=== PATIENT | female | born 1935 | race Caucasian/White ===

== ENCOUNTER 2016-10-24 15:13 | Inpatient (IN) | payer MEDICARE, MEDICAID ==
[2016-10-24 15:41] LABS: HEMOGLOBIN 9.9 gm/dL (12-16); MEAN CELL VOLUME 85.3 fl (81-100); MEAN CORPUSCULAR HEMOGLOBIN 28.2 pg (27.0-31.0); MEAN CORPUSCULAR HGB CONC 33.1 pg (28.0-36.0); MEAN PLATELET VOLUME 8.3 fl; RED CELL DISTRIBUTION WIDTH 14.5 % (11.5-20.0); WHITE BLOOD COUNT 11.9 Th/cmm (4.8-10.8)
[2016-10-24 15:51] LABS: HEMATOCRIT 29.9 % (41.0-60); PLATELET COUNT 341 Th/cmm (150-400)
[2016-10-24 15:56] LABS: INR 0.98 (0.5-1.4); PROTHROMBIN TIME (TEST) 10.2 SECONDS (9.5-11.5)
[2016-10-24 15:59] LABS: CHOLESTEROL 131 mg/dL (<200); TRIGLYCERIDES 183 mg/dL (<150)
[2016-10-24 16:01] LABS: ALB/GLOB RATIO 0.8 (1.0-1.8); ALKALINE PHOSPHATASE 124 U/L (34-104); BILIRUBIN,TOTAL 0.3 mg/dL (0.3-1.0); BUN - UREA NITROGEN 27 mg/dL (7-25); BUN/CREATININE RATIO 13.5; CALCIUM SERUM 10.7 mg/dL (8.6-10.3); CARBON DIOXIDE 23.1 mEq/L (21.0-31.0); CHLORIDE 102 mEq/L (98-107); GLUCOSE 312 mg/dL (70-105); POTASSIUM SERUM 5.1 mEq/L (3.5-5.1); SGOT 14 U/L (13-39); SGPT/ALT 17 U/L (7-52); SODIUM SERUM 128 mEq/L (136-145)
[2016-10-24] MEDS ORDERED: Sodium Chloride 0.45% 1,000 ML IV ONE (16:08)
--- NOTE | 2016-10-24 16:10 | ED Physician Chart ---
ED Chief Complaint/HPI - Patient Information Date Seen:: 10/24/16 Time Seen:: 16:05 Chief Complaint:: DECUBITI ULCERS History of Present Illness:: THIS IS A CHRONICALLY ILL 81 YO FEMALE WHO WAS SENT HERE FROM A SNF TO MANAGEMENT AND TREATMENT MULTIPLE BED SORES. SHE HAS DIABETES AND HYPERTENSION. Allergies:: Allergies Allergy/AdvReac Type Severity Reaction Status Date / Time No Known Allergies Allergy Verified 06/30/16 18:00 Vitals:: Vital Signs - 8 hr 10/24/16 15:42 Temp 98.5 F HR 97 RR 16 BP 160/77 O2 Sat % 98 Historian:: Medical Records Review:: Nurse's Note Reviewed, Old Chart Reviewed, Transfer documents Reviewed ED Review of Systems - Review of Systems General/Constitutional: No fever, No chills, No weight loss, No weakness, No diaphoresis, No edema, No loss of appetite Skin: No rash, No bruising, Other (BUTTOCK OPEN GRADE 3 DECUBES) Head: No headache, No light-headedness Eyes: No loss of vision, No pain, No diplopia ENT: No earache, No nasal drainage, No sore throat, No tinnitus Neck: No neck pain, No swelling, No thyromegaly, No stiffness, No mass noted Cardio Vascular: No chest pain, No palpitations, No PND, No orthopnea, No edema Pulmonary: No SOB, No cough, No sputum, No wheezing GI: No nausea, No vomiting, No diarrhea, No pain, No melena, No hematochezia, No constipation, No hematemesis G/U: No dysuria, No frequency, No hematuria Musculoskeletal: No bone or joint pain, No back pain, No muscle pain Endocrine: No polyuria, No polydipsia Psychiatric: No prior psych history, No depression, No anxiety, No suicidal ideation Hematopoietic: No bruising, No lymphadenopathy Allergic/Immuno: No urticaria, No angioedema Neurological: No syncope, No focal symptoms, No weakness, No paresthesia, No headache, No seizure, No dizziness, No confusion, No vertigo ED Past Medical History - Past Medical History Obtainable: Yes Past Medical History: HTN, DM, CVA/TIA, Arthritis, Dementia Family History: Diabetes Melitus, HTN Social History: Non Smoker, No Alcohol, No Drug Use, , Care Facility Surgical History: None Psychiatricy History: Dementia Family Medical History - Family Member Mother History Unknown: Yes Hx Family Diabetes: Yes ED Physical Exam - Physical Examination General/Constitutional: Awake, Well-developed, well-nourished, Alert, No distress, GCS 15, Non-toxic appearing, Ambulatory Head: Atraumatic Eyes: Lids, conjuctiva normal, PERRL, EOMI Skin: Nl inspection, No rash, No skin lesions, No ecchymosis, Well hydrated, No lymphadenopathy ENMT: External ears, nose nl, Nasal exam nl, Lips, teeth, gums nl Neck: Nontender, Full ROM w/o pain, No JVD, No nuchal rigidity, No bruit, No mass, No stridor Respiratory: Nl effort/Exclusion, Clear to Auscultation, No Wheeze/Rhonchi/Rales Cardio Vascular: RRR, No murmur, gallop, rubs, NL S1 S2 GI: No tenderness/rebounding/guarding, No organomegaly, No hernia, Normal BS's, Nondistended, No mass/bruits, No McBurney tenderness Other GI comments:: ULCERS OF THE BUTTOCKS. : No CVA tenderness Extremities: No tenderness or effusion, Full ROM, normal strength in all extremities, No edema, Normal digits & nails Other Extremities comments:: ALL FOUR EXTREMITIES ARE THIN WITH SEVERE MUSCLE WASTING. Neuro/Psych: Alert/oriented, DTR's symmetric, Normal sensory exam, Normal motor strength, Judgement/insight normal, Mood normal, Normal gait, No focal deficits Other Neuro/Psych comments:: PARTIAL PARALYSIS OF THE UPPER EXTREMITIES. Misc: normal gait, Normal back, No paraspinal tenderness ED Labs/Radiology/EKG Results - Lab Results Results: Laboratory Tests 10/24/16 10/24/16 10/24/16 15:30 15:30 15:30 WBC 11.9 H RBC 3.50 L Hgb 9.9 L Hct 29.9 L D MCV 85.3 MCH 28.2 MCHC Differential 33.1 RDW 14.5 Plt Count 341 D MPV 8.3 PT 10.2 INR 0.98 PTT (Actin FS) 25.6 L Sodium Potassium Chloride Carbon Dioxide Anion Gap BUN Creatinine Est GFR ( Amer) Est GFR (Non-Af Amer) BUN/Creatinine Ratio Glucose Calcium Total Bilirubin AST ALT Alkaline Phosphatase Troponin I Total Protein Albumin Globulin Albumin/Globulin Ratio Triglycerides 183 H Cholesterol 131 LDL Cholesterol Direct 85 HDL Cholesterol 27 10/24/16 10/24/16 15:30 15:30 WBC RBC Hgb Hct MCV MCH MCHC Differential RDW Plt Count MPV PT INR PTT (Actin FS) Sodium 128 L Potassium 5.1 Chloride 102 Carbon Dioxide 23.1 Anion Gap 8.0 BUN 27 H Creatinine 2.0 H Est GFR ( Amer) TNP Est GFR (Non-Af Amer) TNP BUN/Creatinine Ratio 13.5 Glucose 312 H Calcium 10.7 H Total Bilirubin 0.3 AST 14 ALT 17 Alkaline Phosphatase 124 H Troponin I 0.03 Total Protein 6.6 Albumin 2.9 L Globulin 3.7 Albumin/Globulin Ratio 0.8 L Triglycerides Cholesterol LDL Cholesterol Direct HDL Cholesterol - Radiology Results Results: CHEST - XRAY = NAD - EKG Interpretations EKG Time:: 15:42 Rate & Rhythm: RATE = 57, BRADYCARDIA [place]: RIGHT ED Assessment - Assessment General Assessment: DECUBITI ULCERS ED Septic Shock - . Is Septic Shock (SBP<90, OR Lactate>4 mmol\L) present?: No - <6hrs of presentation: Vital Signs: Vital Signs - 8 hr 10/24/16 15:42 Temp 98.5 F HR 97 RR 16 BP 160/77 O2 Sat % 98 ED Reassessment (Disposition) - Diagnosis Diagnosis:: GRADE 3 DECUBTI ANEMIA DEHYDRATION - Patient Disposition Discharge/Transfer:: Acute Care w/in this hosp Admitting Medical Physician:: Damian La Condition at Disposition:: Stable
[2016-10-24 16:17] LABS: BAND NEUTROPHILE 1 % (0-10); BASOPHIL 1 % (0-3); NEUTROPHILS 83 % (40-80); PLATELET ESTIMATE ADEQUATE (NORMAL); TOTAL CELLS COUNTED 100
[2016-10-24] MEDS: Sodium Chloride 0.9% 1,000 ML IV SCH (21:16)
[2016-10-24] MEDS ORDERED: Fleet Enema 135 mL RC PRN (22:10)
[2016-10-25] MEDS ORDERED: Piperacillin Sodium/Tazobact 3.375 gm Vial IV ONE ×2 (00:19→05:26)
--- NOTE | 2016-10-25 08:10 | Diagnostic Imaging Report ---
CHEST X-RAY: AP view INDICATION: Cough COMPARISON: 06/30/2016 FINDINGS: There is no focal consolidation or pleural effusions. Mild chronic lung changes are seen. Mild cardiomegaly is noted with tortuous aorta and atherosclerosis. Patient is rotated. Degenerative changes of the spine are noted. IMPRESSION: Mild chronic lung changes with no focal consolidation identified. Mild cardiomegaly with tortuous aorta and atherosclerosis.
--- NOTE | 2016-10-25 08:53 | History and Physical ---
History of Present Illness - HPI Chief Complaint: Cellulitis and Decubitus ulcer stage 3 HPI: This a patient that I follow in SNF and I noticed an decubit ulcer stage 3 and cellulites reason why patient was transferred to hospital for debridament. 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 GI: Report: No Pertinent Hx Psych: Report: Schizophrenia Musculoskeletal: Report: Osteoarthritis, Weakness Infectious Disease: Report: Other (Cellulitis) Renal/: Report: Acute Renal Failure Endocrine: Report: Diabetes, Other (Hyponatremia) Dermatology: Report: Cellulitis, Other (Decubit ulcer stage 3) - Past Surgical History Past Surgical History: No pertinent Hx Family Medical History - Family Member Mother History Unknown: Yes Ethnicity: Living Status: Unknown Hx Family Cancer: No Hx Family Coronary Artery Disease: No Hx Family Congestive Heart Failure: No Hx Family Hypertension: No Hx Family Stroke: No Hx Family Diabetes: Yes Hx Family Seizures: No Hx Family Dementia: No Hx Family AIDS: No Hx Family HIV: No Hx Family COPD: No Hx Family Hepatitis: No Hx Family Psychiatric Problems: No Hx Family Tuberculosis: No Social History Smoke: No Alcohol: None Drugs: None Lives: Jail Domestic Violence: Negative - Medications Home Medications: Home Medication Medication Instructions Recorded Type Acetaminophen [Tylenol] 650 mg PO Q6H PRN tab 07/05/16 Rx Bisacodyl [Dulcolax 5 Mg Ec Tab] 10 mg PO BID ect 07/05/16 Rx Captopril [Capoten 25 mg Tab] 25 mg PO BID tab 07/05/16 Rx Sodium Chloride Tab [NaCL Tab] 1 gm PO BID tab 07/05/16 Rx cloNIDine HCl [Catapres] 0.1 mg PO Q8HR PRN tab 07/05/16 Rx Alginate Dressing [Algisite M] 1 each TP DAILY 10/24/16 History Ascorbate Calcium [Vitamin C] 500 mg PO DAILY 10/24/16 History Aspirin [Aspirin Chewable] 81 mg PO DAILY 10/24/16 History Insulin Aspart Sliding Scale 0 units SUBQ ACHS 10/24/16 History [NovoLOG INSULIN SLIDING SCALE] Insulin Glargine, Recombinan 24 units SUBQ HS 10/24/16 History [Lantus] Lorazepam [Ativan] 1 mg PO HS PRN 10/24/16 History Memory Builder 3 tab PO BID 10/24/16 History Multivitamin with Minerals 1 tab PO DAILY 10/24/16 History [Multivitamins with Minerals] Sennosides A and B [Senna] 8.6 mg PO DAILY 10/24/16 History traMADol HCl [Ultram*] 50 mg PO X1 10/24/16 History - Allergies Allergies/Adverse Reactions: Allergies Allergy/AdvReac Type Severity Reaction Status Date / Time No Known Allergies Allergy Verified 06/30/16 18:00 Review of Systems - Review of Systems Constitutional: Report: No Significant Eyes: Report: No Significant Respiratory: Report: No Significant Cardiovascular: Report: No Significant Gastrointestinal: Report: No Significant Genitourinary: Report: No Significant Musculoskeletal: Report: Neck Pain Skin: Report: Other (Cellulitis and decubit ulcer stage 3) Neurological: Report: Weakness, Confusion, Other (Non Verbal) Physical Exam - Physical Exam HEENT: Report: Ears Nose Throat within normal limits Neck: Report: Within normal limits Cardiovascular Systems: Report: Regular, Rate and Rhythm Respiratory: Report: Breath Sounds are within normal limits Abdomen: Report: Non-tender to palpation Back: Report: Inspection of back is within normal limits. Extremities: Report: Non-tender to palpation., Extremities are contracted (Non ambulatory) Skin: Report: A wound was noted (Cellulitis and sacral decubit ulcer) Neuro/Psych: Report: Depressed affect, Weakness or sensory loss noted. - Lab Results All Lab Results last 24 hours: Laboratory Last Values WBC 11.9 Th/cmm (4.8-10.8) H 10/24/16 15:30 RBC 3.50 Mil/cmm (3.80-5.20) L 10/24/16 15:30 Hgb 9.9 gm/dL (12-16) L 10/24/16 15:30 Hct 29.9 % (41.0-60) L D 10/24/16 15:30 MCV 85.3 fl (81-100) 10/24/16 15:30 MCH 28.2 pg (27.0-31.0) 10/24/16 15:30 MCHC Differential 33.1 pg (28.0-36.0) 10/24/16 15:30 RDW 14.5 % (11.5-20.0) 10/24/16 15:30 Plt Count 341 Th/cmm (150-400) D 10/24/16 15:30 MPV 8.3 fl 10/24/16 15:30 Band Neutrophils % 1 % (0-10) 10/24/16 15:30 Neutrophils (Manual) 83 % (40-80) H 10/24/16 15:30 Lymphocytes 9 % (20-50) L 10/24/16 15:30 Monocytes 6 % (2-10) 10/24/16 15:30 Basophils 1 % (0-3) 10/24/16 15:30 Platelet Estimate ADEQUATE (NORMAL) 10/24/16 15:30 PT 10.2 SECONDS (9.5-11.5) 10/24/16 15:30 INR 0.98 (0.5-1.4) 10/24/16 15:30 PTT (Actin FS) 25.6 SECONDS (26.0-38.0) L 10/24/16 15:30 Sodium 128 mEq/L (136-145) L 10/24/16 15:30 Potassium 5.1 mEq/L (3.5-5.1) 10/24/16 15:30 Chloride 102 mEq/L (98-107) 10/24/16 15:30 Carbon Dioxide 23.1 mEq/L (21.0-31.0) 10/24/16 15:30 Anion Gap 8.0 (7.0-16.0) 10/24/16 15:30 BUN 27 mg/dL (7-25) H 10/24/16 15:30 Creatinine 2.0 mg/dL (0.6-1.2) H 10/24/16 15:30 Est GFR ( Amer) TNP 10/24/16 15:30 Est GFR (Non-Af Amer) TNP 10/24/16 15:30 BUN/Creatinine Ratio 13.5 10/24/16 15:30 Glucose 312 mg/dL (70-105) H 10/24/16 15:30 POC Glucose 325 MG/DL (70 - 105) H 10/24/16 20:33 Hemoglobin A1c % 8.8 % (4.0-6.0) H 10/24/16 15:30 Calcium 10.7 mg/dL (8.6-10.3) H 10/24/16 15:30 Total Bilirubin 0.3 mg/dL (0.3-1.0) 10/24/16 15:30 AST 14 U/L (13-39) 10/24/16 15:30 ALT 17 U/L (7-52) 10/24/16 15:30 Alkaline Phosphatase 124 U/L (34-104) H 10/24/16 15:30 Troponin I 0.03 ng/mL (0.01-0.05) 10/24/16 15:30 Total Protein 6.6 gm/dL (6.0-8.3) 10/24/16 15:30 Albumin 2.9 gm/dL (3.7-5.3) L 10/24/16 15:30 Globulin 3.7 gm/dL 10/24/16 15:30 Albumin/Globulin Ratio 0.8 (1.0-1.8) L 10/24/16 15:30 Triglycerides 183 mg/dL (<150) H 10/24/16 15:30 Cholesterol 131 mg/dL (<200) 10/24/16 15:30 LDL Cholesterol Direct 85 mg/dL (75-193) 10/24/16 15:30 HDL Cholesterol 27 mg/dL (23-92) 10/24/16 15:30 TSH 2.34 uIU/ml (0.34-5.60) 10/24/16 15:30 RPR NONREACTIVE (NONREACTIVE) 10/24/16 15:30 Laboratory Results - last 24 hr 10/24/16 20:33 POC Glucose 325 H - Assessment Assessment: Current Active Problems Problem Status Onset SACRAL AND BILATERAL BUTTOCK SKIN ULCERS Acute Patient is awake, alert, calm, confused, not oriented. Dx: Cellulitis and sacral decubit ulcer stage 3, AKF, Hyponatremia, DM, HTN, Dementia, S/P CVA, bed bound. - Plan Plan: On IV NS, Sozyn, continue with SNF meds, Today debridament will be done, Consult with Nephro request. Will continue to monitor.
[2016-10-25] MEDS ORDERED: Midazolam 1mg/ml 2 ml vial IV ONE (09:56)
--- NOTE | 2016-10-25 09:59 | Consultation ---
DATE OF CONSULTATION: 10/25/2016 REFERRING PHYSICIAN: Dr. La. REASON FOR CONSULTATION: Decubitus ulcer sacrum. Thank you for referring this patient to me. HISTORY OF PRESENT ILLNESS: This is an 81-year-old female, who comes from the detention because of increasing necrosis of the sacral area. The patient has been bed bound for a while. The patient's is at bedside and information is that this change has been taking place for at least 2 weeks. PAST MEDICAL HISTORY: Includes acute renal failure initiated on hemodialysis, diabetes mellitus, hypertension, dementia, status post CVA, and bed bound status. LABORATORY STUDIES: On this admission, the WBC was slightly elevated to 11,900, hemoglobin of 9.9, neutrophils is 83%. PT, PTT are within normal limits. Potassium of 5.1, BUN of 27, creatinine of 2.0. Hemoglobin A1c is 8.8. The chest x-ray shows chronic lung change with mild cardiomegaly. PHYSICAL EXAMINATION: The patient is awake, unable to give any information. She is obese. There is a stage 3 sacral decubitus ulcer at least and will need debridement and possible wound VAC application. The understands risks and complications of the procedure and need for the treatment to minimize risk of septicemia. The patient is incontinent and if this is a risk factor, might recommend diverting colostomy as well. [facility]# [id number]
[2016-10-25] MEDS: Aspirin 81mg Chewable Tab PO SCH (10:02)
[2016-10-25] MEDS: Multivitamin w/ Minerals Tab PO SCH (10:03)
--- NOTE | 2016-10-25 10:49 | Operative Report ---
DATE OF SURGERY: 10/25/2016 PREOPERATIVE DIAGNOSES: 1. Stage 3 sacral decubitus ulcer. 2. Diabetes mellitus. 3. Status post cerebrovascular accident. POSTOPERATIVE DIAGNOSES: 1. Stage 3 sacral decubitus ulcer. 2. Diabetes mellitus. 3. Status post cerebrovascular accident. OPERATION: 1. Excisional debridement. 2. Application of wound VAC. SIZE OF ULCER: 6 x 5 cm deep to the muscle. ESTIMATED BLOOD LOSS: 1 mL. SURGEON: Amando Naranjo M.D. ANESTHESIA: MAC. ANESTHESIOLOGIST: Susie Fritz M.D. DESCRIPTION OF PROCEDURE: The patient was given IV sedation. She was placed in the right lateral decubitus physician. The ulcer was prepped with Betadine and draped. Excisional debridement was done of the necrotic tissue to the extending to the muscle. Cultures were taken. Following satisfactory hemostasis, the wound VAC was applied. The patient tolerated the procedure well. [facility]# [id number]
[2016-10-25] MEDS: Sodium Chloride 0.9% 1,000 ML IV SCH (11:25)
[2016-10-25] MEDS ORDERED: VTE Chemical Prophylaxis Screen/Admission MC PRN (11:46)
[2016-10-25] MEDS ORDERED: Probiotic Screen MC PRN (14:29)
[2016-10-25] MEDS: Lactobacillus Rhamnosus 10 Billion CFU Capsule PO SCH (15:15)
--- NOTE | 2016-10-26 01:29 | Consultation ---
DATE OF CONSULTATION: 10/25/2016 ATTENDING: Dr. Osmin La. AUTOMOBILE SERVICE ADVISOR: Omid Villa M.D. REASON FOR CONSULTATION: Electrolyte imbalance, worsening kidney function, and for fluid management. HISTORY OF PRESENT ILLNESS: This is an 81-year-old female with past medical history of decubitus ulcers, came in for further evaluation of her worsening ulcers. Three days prior to admission, culture and sensitivity of decubitus gluteal ulcers grew MRSA. She was maintained on Bactrim. A few hours prior to admission, her gluteal ulcers had deteriorated. She was brought to the Emergency Room. Her temperature was 98.5 degrees, with a white count of 11.9. She had a BUN/creatinine of 27/2 and a sodium of 128. There were no episodes of nausea or vomiting, no diarrhea. PAST MEDICAL HISTORY: 1. Type 2 diabetes mellitus. 2. Vascular dementia. 3. Bilateral decubitus gluteal ulcers. 4. Essential hypertension. 5. Status post cerebrovascular accident. 6. Chronic kidney disease. CURRENT MEDICATIONS: She is currently on acetaminophen, ascorbic acid, aspirin, bisacodyl, captopril, Fleet enema, detemir, lorazepam, Tramadol, Zosyn. ALLERGIES: No known drug allergies. SOCIAL AND FAMILY HISTORY: I was not able to obtain directly from the patient because she remains nonverbal. REVIEW OF SYSTEMS: Again, I was not able to decipher directly from the patient. PHYSICAL EXAMINATION: GENERAL: The patient is arousable, weak, remains nonverbal. VITAL SIGNS: Blood pressure is 159/74, pulse 77, temperature 98.9 degrees. SKIN: Poor turgor, warm. No rash, no jaundice appreciated. HEENT: Head normocephalic, atraumatic. Eyes: Extraocular muscles intact. Pupils equal, round, reactive to light and accommodates. Anicteric sclerae. Pale conjunctivae. Nose, midline nasal septum. Mouth: Dry mucosa with adequate dentition. NECK: Supple, no adenopathy, no thyromegaly, no bruits. Trachea palpated in the midline. CHEST AND CVS: S1, S2. No rub, murmur or gallop appreciated. Point of maximal impulse fifth intercostal space, left midclavicular line. No abdominal or femoral bruits appreciated. LUNGS: Equal expansion. No use of accessory muscles. No supraclavicular retractions. Decreased breath sounds. Few rhonchi, but no rales nor wheezes appreciated. BREASTS: Symmetrical without any discharge. ABDOMEN: Flat, soft. Positive for bowel sounds. No bruits, either diastolic or systolic. RECTAL: Deferred. GENITOURINARY: Normal appearing female genitalia. MUSCULOSKELETAL: No effusions present in her joints, but unable to assess her range of motion. EXTREMITIES: No evidence of any edema, cyanosis nor clubbing with palpable femoral, but unable to fully appreciate popliteal and dorsalis pedis pulses. She has bilateral atrophy of lower extremities. NEUROLOGIC: The patient is awake, remains nonverbal. The patient is drowsy, weak, unable to follow my neuro commands, so I was not able to pursue further my neuro exam. LABORATORY DATA: Did reveal sodium 128, potassium 5.1, chloride 102, bicarbonate 23, BUN 27, creatinine is 2, glucose 313, hemoglobin A1c 8.8%, calcium 10.7, albumin 2.9. White count 11.9, hemoglobin 9.9, hematocrit 26.9, platelets . IMPRESSION: 1. 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 The patient has no history of nausea and vomiting, no diarrhea. 2. Chronic kidney disease secondary to diabetic nephropathy with some hypertension, nephrosclerosis. 3. Bilateral Methicillin-resistant Staphylococcus aureus decubitus gluteal ulcers, status post debridement with wound VAC. 4. Severe malnutrition. 5. Type 2 diabetes mellitus with chronic kidney disease. 6. Vascular dementia. 7. Essential hypertension. 8. Status post cerebrovascular accident. PLAN: 1. Gentle hydration. 2. Urinalysis. 3. Urine spot sodium, eosinophils and creatinine. 4. Renal ultrasound. 5. Urine microalbumin to creatinine ratio. 6. Serum osmolality, uric acid, aldosterone, cortisol, and TSH level. [facility]# [id number]
[2016-10-26] MEDS: Sodium Chloride 0.9% 1,000 ML IV SCH (05:21)
[2016-10-26 06:12] LABS: CREATININE RANDOM URINE 28.6 mg/dl (28.0-217.0)
[2016-10-26 06:21] LABS: % BASOPHILS 0.2 % (0.0-2.0); % EOSINOPHILS 2.8 % (0.0-5.0); % LYMPHOCYTES 23.9 % (20.0-50.0); % MONOCYTES 10.2 % (2.0-10.0); % NEUTROPHILS 62.9 % (40.0-80.0); HEMATOCRIT 26.4 % (41.0-60); MEAN CELL VOLUME 83.4 fl (81-100); MEAN CORPUSCULAR HEMOGLOBIN 28.4 pg (27.0-31.0); MEAN PLATELET VOLUME 8.1 fl; NEUTROPHILE ABSOLUTE 4.5 Th/cmm (1.8-8.0); PLATELET COUNT 341 Th/cmm (150-400); RED BLOOD COUNT 3.16 Mil/cmm (3.80-5.20); RED CELL DISTRIBUTION WIDTH 14.7 % (11.5-20.0)
[2016-10-26 06:22] LABS: WHITE BLOOD COUNT 7.4 Th/cmm (4.8-10.8)
[2016-10-26 06:36] LABS: ALB/GLOB RATIO 0.8 (1.0-1.8); ALKALINE PHOSPHATASE 101 U/L (34-104); ANION GAP 9.2 (7.0-16.0); BILIRUBIN,TOTAL 0.3 mg/dL (0.3-1.0); BUN - UREA NITROGEN 26 mg/dL (7-25); BUN/CREATININE RATIO 17.3; CARBON DIOXIDE 23.9 mEq/L (21.0-31.0); CHLORIDE 108 mEq/L (98-107); CREATININE - SERUM 1.5 mg/dL (0.6-1.2); GLUCOSE 85 mg/dL (70-105); MAGNESIUM 2.1 mg/dL (1.9-2.7); PHOSPHOROUS 2.1 mg/dL (2.5-5.0); POTASSIUM SERUM 4.1 mEq/L (3.5-5.1); SGOT 17 U/L (13-39); SGPT/ALT 16 U/L (7-52); SODIUM SERUM 137 mEq/L (136-145); URIC ACID 3.9 mg/dL (2.3-6.6)
--- NOTE | 2016-10-26 08:16 | Diagnostic Imaging Report ---
Renal ultrasound HISTORY: Abnormal renal function test The right kidney is normal in size (9.5 x 4.5 x 5.3 cm). A 2.4 x 1.8 x 2.1 cm sonolucent lesion consistent with a cyst is noted in the upper cortical medullary junction region. No hydronephrosis. The left kidney is normal in size (9.4 x 4.7 x 4.6 cm). Multiple sonolucent lesions consistent with cysts are seen. The largest measures approximately 2.7 cm. No hydronephrosis. Evaluation of the urinary bladder is limited due to lack of distention. IMPRESSION: 1. Findings consistent with bilateral renal cysts 2. No hydronephrosis
--- NOTE | 2016-10-26 08:50 | General Progress Note ---
Subjective - Review of Systems Service Date: 10/26/16 Subjective: Patient confused Objective - Results Result Diagrams: 10/26/16 06:05 10/26/16 06:05 Recent Labs: Laboratory Last Values WBC 7.4 Th/cmm (4.8-10.8) D 10/26/16 06:05 RBC 3.16 Mil/cmm (3.80-5.20) L 10/26/16 06:05 Hgb 9.0 gm/dL (12-16) L 10/26/16 06:05 Hct 26.4 % (41.0-60) L D 10/26/16 06:05 MCV 83.4 fl (81-100) 10/26/16 06:05 MCH 28.4 pg (27.0-31.0) 10/26/16 06:05 MCHC Differential 34.0 pg (28.0-36.0) 10/26/16 06:05 RDW 14.7 % (11.5-20.0) 10/26/16 06:05 Plt Count 341 Th/cmm (150-400) 10/26/16 06:05 MPV 8.1 fl 10/26/16 06:05 Neutrophils % 62.9 % (40.0-80.0) 10/26/16 06:05 Band Neutrophils % 1 % (0-10) 10/24/16 15:30 Lymphocytes % 23.9 % (20.0-50.0) 10/26/16 06:05 Monocytes % 10.2 % (2.0-10.0) H 10/26/16 06:05 Eosinophils % 2.8 % (0.0-5.0) 10/26/16 06:05 Basophils % 0.2 % (0.0-2.0) 10/26/16 06:05 Neutrophils (Manual) 83 % (40-80) H 10/24/16 15:30 Lymphocytes 9 % (20-50) L 10/24/16 15:30 Monocytes 6 % (2-10) 10/24/16 15:30 Basophils 1 % (0-3) 10/24/16 15:30 Platelet Estimate ADEQUATE (NORMAL) 10/24/16 15:30 Eos Smear Source URINE 10/26/16 05:43 Eos Smear Total Cells FEW EOSINOPHILS SEEN (NONE SEEN) 10/26/16 05:43 PT 10.2 SECONDS (9.5-11.5) 10/24/16 15:30 INR 0.98 (0.5-1.4) 10/24/16 15:30 PTT (Actin FS) 25.6 SECONDS (26.0-38.0) L 10/24/16 15:30 Sodium 137 mEq/L (136-145) 10/26/16 06:05 Potassium 4.1 mEq/L (3.5-5.1) 10/26/16 06:05 Chloride 108 mEq/L (98-107) H 10/26/16 06:05 Carbon Dioxide 23.9 mEq/L (21.0-31.0) 10/26/16 06:05 Anion Gap 9.2 (7.0-16.0) 10/26/16 06:05 BUN 26 mg/dL (7-25) H 10/26/16 06:05 Creatinine 1.5 mg/dL (0.6-1.2) H 10/26/16 06:05 Est GFR ( Amer) TNP 10/26/16 06:05 Est GFR (Non-Af Amer) TNP 10/26/16 06:05 BUN/Creatinine Ratio 17.3 10/26/16 06:05 Glucose 85 mg/dL (70-105) 10/26/16 06:05 POC Glucose 185 MG/DL (70 - 105) H 10/25/16 20:26 Hemoglobin A1c % 8.8 % (4.0-6.0) H 10/24/16 15:30 Uric Acid 3.9 mg/dL (2.3-6.6) 10/26/16 06:05 Calcium 10.0 mg/dL (8.6-10.3) 10/26/16 06:05 Phosphorus 2.1 mg/dL (2.5-5.0) L 10/26/16 06:05 Magnesium 2.1 mg/dL (1.9-2.7) 10/26/16 06:05 Total Bilirubin 0.3 mg/dL (0.3-1.0) 10/26/16 06:05 AST 17 U/L (13-39) 10/26/16 06:05 ALT 16 U/L (7-52) 10/26/16 06:05 Alkaline Phosphatase 101 U/L (34-104) 10/26/16 06:05 Troponin I 0.03 ng/mL (0.01-0.05) 10/24/16 15:30 Total Protein 6.2 gm/dL (6.0-8.3) 10/26/16 06:05 Albumin 2.7 gm/dL (3.7-5.3) L 10/26/16 06:05 Globulin 3.5 gm/dL 10/26/16 06:05 Albumin/Globulin Ratio 0.8 (1.0-1.8) L 10/26/16 06:05 Triglycerides 183 mg/dL (<150) H 10/24/16 15:30 Cholesterol 131 mg/dL (<200) 10/24/16 15:30 LDL Cholesterol Direct 85 mg/dL (75-193) 10/24/16 15:30 HDL Cholesterol 27 mg/dL (23-92) 10/24/16 15:30 TSH 2.34 uIU/ml (0.34-5.60) 10/24/16 15:30 Ur Random Sodium 103 mmol/L 10/26/16 05:43 Urine Creatinine 28.6 mg/dl (28.0-217.0) 10/26/16 05:43 RPR NONREACTIVE (NONREACTIVE) 10/24/16 15:30 - Physical Exam Vitals and I&O: Vital Signs Temp 98.3 F 10/26/16 07:58 Pulse 73 10/26/16 07:58 Resp 16 10/26/16 07:58 BP 173/82 10/26/16 07:58 Pulse Ox 100 10/26/16 07:58 Intake & Output 10/25/16 10/26/16 10/26/16 18:59 06:59 18:59 Intake Total 1050 150 Balance 1050 150 Weight (lbs) 53.615 kg Intake: Intake, IV Amount 1050 50 Piperacillin Sodium/ 50 50 Tazobact 3.375 gm In Sodium Chloride 0.9% 50 ml @ 100 mls/hr IV Q6HR [facility] Rx#:[id number] Sodium Chloride 0.9% 1, 1000 000 ml @ 90 mls/hr IV . Q11H7M [facility] Rx#:[id number] Oral 100 Other: # Voids 3 # Bowel Movements 0 Stool Characteristics Soft Soft Formed Formed Active Medications: Current Medications Acetaminophen (Tylenol) 650 mg PO Q6H PRN PRN Reason: Pain or Fever >101 Stop: 12/23/16 22:05 Ascorbic Acid (Vitamin C) 500 mg PO DAILY [facility] Stop: 12/24/16 08:59 Last Admin: 10/25/16 10:02 Dose: Not Given Aspirin (Aspirin Chewable) 81 mg PO DAILY [facility] Stop: 12/24/16 08:59 Last Admin: 10/25/16 10:02 Dose: Not Given Bisacodyl (Dulcolax 5 Mg Ec Tab) 10 mg PO BID [facility] Stop: 12/24/16 08:59 Last Admin: 10/25/16 17:47 Dose: 10 mg Heparin Sodium (Porcine) (Heparin) 5,000 units SUBQ Q12HR [facility] Stop: 12/24/16 20:59 Hydralazine HCl (Apresoline) 25 mg PO BID [facility] Stop: 12/24/16 16:59 Last Admin: 10/25/16 17:46 Dose: 25 mg Piperacillin Sod/Tazobactam (Sod 3.375 gm/ Sodium Chloride) 50 mls @ 100 mls/ hr IV Q6HR [facility] Stop: 12/24/16 00:00 Last Admin: 10/26/16 05:20 Dose: 100 mls/hr Sodium Chloride (Nacl 0.9%) 1,000 mls @ 75 mls/hr IV .[id number] [facility] Stop: 12/24/16 14:14 Last Admin: 10/26/16 05:21 Dose: 75 mls/hr Insulin Detemir (Levemir Insulin) 24 units SUBQ HS [facility] Stop: 12/24/16 20:59 Lactobacillus Rhamnosus (Culturelle) 1 each PO DAILY [facility] Stop: 12/24/16 14:59 Last Admin: 10/25/16 15:15 Dose: 1 each Lorazepam (Ativan) 1 mg PO HS PRN; Protocol PRN Reason: Anxiety Stop: 12/23/16 22:05 Miscellaneous (Vte Chemical Prophylaxis Screen/ Admission) 1 ea PRN PRN PRN Reason: PROTOCOL Stop: 12/24/16 11:45 Miscellaneous (Probiotic Screen) 1 ea PRN PRN PRN Reason: PROTOCOL Stop: 12/24/16 14:28 Sodium Phosphate (Fleet Enema) 135 ml RC PRN PRN PRN Reason: Constipation Stop: 12/23/16 22:09 General: Alert, No acute distress, Other (Confused, non verbal) HEENT: Atraumatic Neck: Supple Cardiovascular: Regular rate Lungs: Clear to auscultation Abdomen: Bowel sounds Extremities: Other (No edema) Neurological: Other (Non ambulatory) Skin: Other (There is a sacral ulcer cover.) Psych/Mental Status: Other (Confused, not oriented) - Procedures Procedures: Procedures Procedure Code Date CHAGO MUSC/FASCIA 20 SQ CM/< 39371 10/24/16 EXCISION OF LEFT HIP MUSCLE, OPEN APPROACH [id number] 10/24/16 Assessment/Plan - Problem List Patient Problems: All Active Problems SACRAL AND BILATERAL BUTTOCK SKIN ULCERS (Acute) - Assessment Assessment: Current Active Problems Problem Status Onset SACRAL AND BILATERAL BUTTOCK SKIN ULCERS Acute Patient is awake, alert, calm, confused, not oriented. Dx: Cellulitis and sacral decubit ulcer stage 3, AKF, Hyponatremia, DM, HTN, Dementia, S/P CVA, bed bound. - Plan Plan: On IV NS, Sozyn, continue with SNF meds, Debridament was be done, Consult with Nephro request. Will continue to monitor. Nutritional Asmnt/Malnutr-PDOC - Dietary Evaluation Malnutrition Findings (Please click <Entered> for more info): Nutritional Asmnt/Malnutrition Start: 10/25/16 15: 29 Text: Status: Complete Freq: Document 10/25/16 15:29 GSUN (Rec: 10/25/16 15:45 GSUN [email or web address]) Nutritional Asmnt/Malnutrition Patient General Information Nutritional Screening Consult Diagnosis Cellulitis, sacral decubiti ulcer stage 3, AKF, DM Pertinent Medical Hx/Surgical Hx CAD, CHF, CVA, dementia, schizophrenia, osteoarthritis, weakness, cellulitis, acute renal failure, DM, hyponatremia, decubiti ulcer stage 3 Subjective Information 81 year old female from SNF. RD consult for multiple ulcers . Pt undergone decridement of stage 3 sacral decubitus ulcer this AM. Pt was soundly asleep during visit. Pt appeared small frame, no muscle fat wasting noted, age appropriate. PO intake 75% of dinner yesterday, meeting nutritional needs. CBW 110.7lb via bedscale. Current Diet Order/ Nutrition Support Pureed, [id number] Pertinent Medications Vitamin C, Dulcolax, Levemir, Culturelle, Fleet Enema Pertinent Labs 10/24: A1c 8.8H, BUN 27H, creatinine 2H, glucose 312H, potassium 5.1 WNL, calcium 10. 7H Nutritional Hx/Data Height 1.52 m Height (Calculated Centimeters) 152.4 Current Weight (lbs) 50.213 kg Weight (Calculated Kilograms) 50.2 Weight (Calculated Grams) 86463.7 [place] Body Weight 100 Weight Status Approriate GI Symptoms Usual diet at home [address] [facility]: pureed, [facility], [facility] Skin Integrity/Comment: Elliot 12. Sacral stage 3 ulcer, multiple ulcers perineal area. Current %PO Good (75-100%) Estimated Nutritional Goals BEE in Kcals: Using Current wt Calories/Kcals/Kg CBW 110.7lb/50.3kg Kcals Calculated 1258-1509kcal (25-30kcal/kg) Protein: Using Current wt Protein Calculated 60-70g (1.2-1.4g/kg, ulcer vs AKF) Fluid: ml Per MD Nutritional Problem 3. Problem Problem Impaired nutrient utilization related to Etiology acute kidney failure aeb Signs/Symptoms: BUN 27H, creatinine 2H 2. Problem Problem Altered nutrition related laboratory values related to Etiology DM aeb Signs/Symptoms: A1c 8.8, glucose 312 on adm 1. Problem Problem Increased protein needs related to Etiology skin integrity aeb Signs/Symptoms: stage 3 sacral decubiti ulcer Intervention/Recommendation Comments 1. Recommend [id number] low sodium to better promote glycemic control and aid in renal function. Expected Outcomes/Goals Expected Outcomes/Goals 1. PO intake to meet at least 75% of estimated nutritional needs.
[2016-10-26] MEDS: Aspirin 81mg Chewable Tab PO SCH (09:13)
[2016-10-26] MEDS: Lactobacillus Rhamnosus 10 Billion CFU Capsule PO SCH (09:13)
[2016-10-26] MEDS: Multivitamin w/ Minerals Tab PO SCH (09:14)
--- NOTE | 2016-10-26 14:08 | General Progress Note ---
Subjective - Review of Systems Service Date: 10/26/16 Subjective: more awake, comfortable Objective - Results Result Diagrams: 10/26/16 06:05 10/26/16 06:05 Recent Labs: Laboratory Last Values WBC 7.4 Th/cmm (4.8-10.8) D 10/26/16 06:05 RBC 3.16 Mil/cmm (3.80-5.20) L 10/26/16 06:05 Hgb 9.0 gm/dL (12-16) L 10/26/16 06:05 Hct 26.4 % (41.0-60) L D 10/26/16 06:05 MCV 83.4 fl (81-100) 10/26/16 06:05 MCH 28.4 pg (27.0-31.0) 10/26/16 06:05 MCHC Differential 34.0 pg (28.0-36.0) 10/26/16 06:05 RDW 14.7 % (11.5-20.0) 10/26/16 06:05 Plt Count 341 Th/cmm (150-400) 10/26/16 06:05 MPV 8.1 fl 10/26/16 06:05 Neutrophils % 62.9 % (40.0-80.0) 10/26/16 06:05 Band Neutrophils % 1 % (0-10) 10/24/16 15:30 Lymphocytes % 23.9 % (20.0-50.0) 10/26/16 06:05 Monocytes % 10.2 % (2.0-10.0) H 10/26/16 06:05 Eosinophils % 2.8 % (0.0-5.0) 10/26/16 06:05 Basophils % 0.2 % (0.0-2.0) 10/26/16 06:05 Neutrophils (Manual) 83 % (40-80) H 10/24/16 15:30 Lymphocytes 9 % (20-50) L 10/24/16 15:30 Monocytes 6 % (2-10) 10/24/16 15:30 Basophils 1 % (0-3) 10/24/16 15:30 Platelet Estimate ADEQUATE (NORMAL) 10/24/16 15:30 Eos Smear Source URINE 10/26/16 05:43 Eos Smear Total Cells FEW EOSINOPHILS SEEN (NONE SEEN) 10/26/16 05:43 PT 10.2 SECONDS (9.5-11.5) 10/24/16 15:30 INR 0.98 (0.5-1.4) 10/24/16 15:30 PTT (Actin FS) 25.6 SECONDS (26.0-38.0) L 10/24/16 15:30 Sodium 137 mEq/L (136-145) 10/26/16 06:05 Potassium 4.1 mEq/L (3.5-5.1) 10/26/16 06:05 Chloride 108 mEq/L (98-107) H 10/26/16 06:05 Carbon Dioxide 23.9 mEq/L (21.0-31.0) 10/26/16 06:05 Anion Gap 9.2 (7.0-16.0) 10/26/16 06:05 BUN 26 mg/dL (7-25) H 10/26/16 06:05 Creatinine 1.5 mg/dL (0.6-1.2) H 10/26/16 06:05 Est GFR ( Amer) TNP 10/26/16 06:05 Est GFR (Non-Af Amer) TNP 10/26/16 06:05 BUN/Creatinine Ratio 17.3 10/26/16 06:05 Glucose 85 mg/dL (70-105) 10/26/16 06:05 POC Glucose 185 MG/DL (70 - 105) H 10/25/16 20:26 Hemoglobin A1c % 8.8 % (4.0-6.0) H 10/24/16 15:30 Uric Acid 3.9 mg/dL (2.3-6.6) 10/26/16 06:05 Calcium 10.0 mg/dL (8.6-10.3) 10/26/16 06:05 Phosphorus 2.1 mg/dL (2.5-5.0) L 10/26/16 06:05 Magnesium 2.1 mg/dL (1.9-2.7) 10/26/16 06:05 Total Bilirubin 0.3 mg/dL (0.3-1.0) 10/26/16 06:05 AST 17 U/L (13-39) 10/26/16 06:05 ALT 16 U/L (7-52) 10/26/16 06:05 Alkaline Phosphatase 101 U/L (34-104) 10/26/16 06:05 Troponin I 0.03 ng/mL (0.01-0.05) 10/24/16 15:30 Total Protein 6.2 gm/dL (6.0-8.3) 10/26/16 06:05 Albumin 2.7 gm/dL (3.7-5.3) L 10/26/16 06:05 Globulin 3.5 gm/dL 10/26/16 06:05 Albumin/Globulin Ratio 0.8 (1.0-1.8) L 10/26/16 06:05 Triglycerides 183 mg/dL (<150) H 10/24/16 15:30 Cholesterol 131 mg/dL (<200) 10/24/16 15:30 LDL Cholesterol Direct 85 mg/dL (75-193) 10/24/16 15:30 HDL Cholesterol 27 mg/dL (23-92) 10/24/16 15:30 TSH 2.34 uIU/ml (0.34-5.60) 10/24/16 15:30 Ur Random Sodium 103 mmol/L 10/26/16 05:43 Urine Creatinine 28.6 mg/dl (28.0-217.0) 10/26/16 05:43 RPR NONREACTIVE (NONREACTIVE) 10/24/16 15:30 - Physical Exam Vitals and I&O: Vital Signs Temp 97.5 F 10/26/16 12:00 Pulse 77 10/26/16 12:00 Resp 16 10/26/16 12:00 BP 153/72 10/26/16 12:00 Pulse Ox 99 10/26/16 12:00 Intake & Output 10/25/16 10/26/16 10/26/16 18:59 06:59 18:59 Intake Total 1050 200 520 Balance 1050 200 520 Weight (lbs) 53.615 kg Intake: Intake, IV Amount 1050 100 520 Piperacillin Sodium/ 50 100 Tazobact 3.375 gm In Sodium Chloride 0.9% 50 ml @ 100 mls/hr IV Q6HR [facility] Rx#:[id number] Sodium Chloride 0.9% 1, 520 000 ml @ 75 mls/hr IV . [id number] [facility] Rx#:[id number] Sodium Chloride 0.9% 1, 1000 000 ml @ 90 mls/hr IV . Q11H7M [facility] Rx#:[id number] Oral 100 Other: # Voids 3 # Bowel Movements 0 Stool Characteristics Soft Soft Formed Formed Active Medications: Current Medications Acetaminophen (Tylenol) 650 mg PO Q6H PRN PRN Reason: Pain or Fever >101 Stop: 12/23/16 22:05 Ascorbic Acid (Vitamin C) 500 mg PO DAILY [facility] Stop: 12/24/16 08:59 Last Admin: 10/26/16 09:13 Dose: 500 mg Aspirin (Aspirin Chewable) 81 mg PO DAILY [facility] Stop: 12/24/16 08:59 Last Admin: 10/26/16 09:13 Dose: 81 mg Bisacodyl (Dulcolax 5 Mg Ec Tab) 10 mg PO BID [facility] Stop: 12/24/16 08:59 Last Admin: 10/26/16 09:14 Dose: 10 mg Heparin Sodium (Porcine) (Heparin) 5,000 units SUBQ Q12HR [facility] Stop: 12/24/16 20:59 Last Admin: 10/26/16 09:15 Dose: 5,000 units Hydralazine HCl (Apresoline) 25 mg PO BID [facility] Stop: 12/24/16 16:59 Last Admin: 10/26/16 09:13 Dose: 25 mg Piperacillin Sod/Tazobactam (Sod 3.375 gm/ Sodium Chloride) 50 mls @ 100 mls/ hr IV Q6HR [facility] Stop: 12/24/16 00:00 Last Admin: 10/26/16 12:18 Dose: 100 mls/hr Sodium Chloride (Nacl 0.9%) 1,000 mls @ 75 mls/hr IV .[id number] [facility] Stop: 12/24/16 14:14 Last Infusion: 10/26/16 12:48 Dose: 75 mls/hr Insulin Detemir (Levemir Insulin) 24 units SUBQ HS [facility] Stop: 12/24/16 20:59 Lactobacillus Rhamnosus (Culturelle) 1 each PO DAILY [facility] Stop: 12/24/16 14:59 Last Admin: 10/26/16 09:13 Dose: 1 each Lorazepam (Ativan) 1 mg PO HS PRN; Protocol PRN Reason: Anxiety Stop: 12/23/16 22:05 Miscellaneous (Vte Chemical Prophylaxis Screen/ Admission) 1 ea PRN PRN PRN Reason: PROTOCOL Stop: 12/24/16 11:45 Miscellaneous (Probiotic Screen) 1 ea PRN PRN PRN Reason: PROTOCOL Stop: 12/24/16 14:28 Mupirocin (Bactroban Oint) 1 appl NS BID [facility] Stop: 10/31/16 09:01 Sodium Phosphate (Fleet Enema) 135 ml RC PRN PRN PRN Reason: Constipation Stop: 12/23/16 22:09 General: Alert, No acute distress, Other (Confused, non verbal) HEENT: Atraumatic, Mucous membr. moist/pink Neck: Supple, +2 carotid pulse wo bruit Cardiovascular: Regular rate, Normal S1, Normal S2 Lungs: Clear to auscultation Abdomen: Bowel sounds, Soft Extremities: Other (No edema), no Edema Neurological: Sensation intact, Other (Non ambulatory) Skin: Other (There is a sacral ulcer cover.), no Rash Psych/Mental Status: Mood NL, Other (Confused, not oriented) - Procedures Procedures: Procedures Procedure Code Date CHAGO MUSC/FASCIA 20 SQ CM/< 37054 10/24/16 EXCISION OF LEFT HIP MUSCLE, OPEN APPROACH [id number] 10/24/16 Assessment/Plan - Problem List Patient Problems: All Active Problems SACRAL AND BILATERAL BUTTOCK SKIN ULCERS (Acute) - Assessment Assessment: 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 Decubitus Gluteal Ulcer Severe Malnutrition Type 2 DM Vascular Dementia Ess Htn S/P CVA - Plan Plan: Lab - Result Diagrams 10/26/16 06:05 10/26/16 06:05 Current Medications Acetaminophen (Tylenol) 650 mg PO Q6H PRN PRN Reason: Pain or Fever >101 Stop: 12/23/16 22:05 Ascorbic Acid (Vitamin C) 500 mg PO DAILY [facility] Stop: 12/24/16 08:59 Last Admin: 10/26/16 09:13 Dose: 500 mg Aspirin (Aspirin Chewable) 81 mg PO DAILY [facility] Stop: 12/24/16 08:59 Last Admin: 10/26/16 09:13 Dose: 81 mg Bisacodyl (Dulcolax 5 Mg Ec Tab) 10 mg PO BID [facility] Stop: 12/24/16 08:59 Last Admin: 10/26/16 09:14 Dose: 10 mg Heparin Sodium (Porcine) (Heparin) 5,000 units SUBQ Q12HR [facility] Stop: 12/24/16 20:59 Last Admin: 10/26/16 09:15 Dose: 5,000 units Hydralazine HCl (Apresoline) 25 mg PO BID [facility] Stop: 12/24/16 16:59 Last Admin: 10/26/16 09:13 Dose: 25 mg Piperacillin Sod/Tazobactam (Sod 3.375 gm/ Sodium Chloride) 50 mls @ 100 mls/ hr IV Q6HR [facility] Stop: 12/24/16 00:00 Last Admin: 10/26/16 12:18 Dose: 100 mls/hr Sodium Chloride (Nacl 0.9%) 1,000 mls @ 75 mls/hr IV .[id number] [facility] Stop: 12/24/16 14:14 Last Infusion: 10/26/16 12:48 Dose: 75 mls/hr Insulin Detemir (Levemir Insulin) 24 units SUBQ HS [facility] Stop: 12/24/16 20:59 Lactobacillus Rhamnosus (Culturelle) 1 each PO DAILY [facility] Stop: 12/24/16 14:59 Last Admin: 10/26/16 09:13 Dose: 1 each Lorazepam (Ativan) 1 mg PO HS PRN; Protocol PRN Reason: Anxiety Stop: 12/23/16 22:05 Miscellaneous (Vte Chemical Prophylaxis Screen/ Admission) 1 ea PRN PRN PRN Reason: PROTOCOL Stop: 12/24/16 11:45 Miscellaneous (Probiotic Screen) 1 [facility] PRN PRN PRN Reason: PROTOCOL Stop: 12/24/16 14:28 Mupirocin (Bactroban Oint) 1 appl NS BID [facility] Stop: 10/31/16 09:01 Sodium Phosphate (Fleet Enema) 135 ml RC PRN PRN PRN Reason: Constipation Stop: 12/23/16 22:09 Lab - Result Diagrams 10/26/16 06:05 10/26/16 06:05 Na up to 137 Kidney fnc imporved to 26/1.5 continue NS f/u electrolytes Nutritional Asmnt/Malnutr-PDOC - Dietary Evaluation Malnutrition Findings (Please click <Entered> for more info): Nutritional Asmnt/Malnutrition Start: 10/25/16 15: 29 Text: Status: Complete Freq: Document 10/25/16 15:29 GSUN (Rec: 10/25/16 15:45 GS [email or web address]) Nutritional Asmnt/Malnutrition Patient General Information Nutritional Screening Consult Diagnosis Cellulitis, sacral decubiti ulcer stage 3, AKF, DM Pertinent Medical Hx/Surgical Hx CAD, CHF, CVA, dementia, schizophrenia, osteoarthritis, weakness, cellulitis, acute renal failure, DM, hyponatremia, decubiti ulcer stage 3 Subjective Information 81 year old female from SNF. RD consult for multiple ulcers . Pt undergone decridement of stage 3 sacral decubitus ulcer this AM. Pt was soundly asleep during visit. Pt appeared small frame, no muscle fat wasting noted, age appropriate. PO intake 75% of dinner yesterday, meeting nutritional needs. CBW 110.7lb via bedscale. Current Diet Order/ Nutrition Support Rajiv, [id number] Pertinent Medications Vitamin C, Dulcolax, Levemir, Culturelle, Fleet Enema Pertinent Labs 10/24: A1c 8.8H, BUN 27H, creatinine 2H, glucose 312H, potassium 5.1 WNL, calcium 10. 7H Nutritional Hx/Data Height 1.52 m Height (Calculated Centimeters) 152.4 Current Weight (lbs) 50.213 kg Weight (Calculated Kilograms) 50.2 Weight (Calculated Grams) 39474.7 [place] Body Weight 100 Weight Status Approriate GI Symptoms Usual diet at home [address] [facility]: rajiv, [facility], [facility] Skin Integrity/Comment: Elliot 12. Sacral stage 3 ulcer, multiple ulcers perineal area. Current %PO Good (75-100%) Estimated Nutritional Goals BEE in Kcals: Using Current wt Calories/Kcals/Kg CBW 110.7lb/50.3kg Kcals Calculated 1258-1509kcal (25-30kcal/kg) Protein: Using Current wt Protein Calculated 60-70g (1.2-1.4g/kg, ulcer vs AKF) Fluid: ml Per MD Nutritional Problem 3. Problem Problem Impaired nutrient utilization related to Etiology acute kidney failure aeb Signs/Symptoms: BUN 27H, creatinine 2H 2. Problem Problem Altered nutrition related laboratory values related to Etiology DM aeb Signs/Symptoms: A1c 8.8, glucose 312 on adm 1. Problem Problem Increased protein needs related to Etiology skin integrity aeb Signs/Symptoms: stage 3 sacral decubiti ulcer Intervention/Recommendation Comments 1. Recommend [id number] low sodium to better promote glycemic control and aid in renal function. Expected Outcomes/Goals Expected Outcomes/Goals 1. PO intake to meet at least 75% of estimated nutritional needs.
[2016-10-26] MEDS ORDERED: Sodium Phosphate 20 MMOLE in Sodium Chloride 0.9% 250 ML IV ONE (15:00)
[2016-10-26] MEDS: Venelex 60gm Tube TP SCH (15:12)
--- NOTE | 2016-10-26 17:21 | Pathology Report ---
[id number] Collection Date: 10/25/2016 Surgeon: Dr. Randolph Goel Specimen Description: Debrided tissue, sacral decubitus Gross Description: Received in formalin is a 5.0 x 4.2 x 1.5 cm oval excision of grayish ulcerated skin with extensive softening and degeneration seen extending throughout the specimen. Sectioning shows soft necrotic changes throughout. Research Technician sections are submitted in one cassette. Microscopic Description: The histologic sections show ulcerated necrotic skin with extensive suppurative inflammation consisting of large collections of neutrophils with a very degenerated/necrotic background. Diagnosis: Ulcerated necrotic skin consistent with debridement, sacral decubitus. JOB# [id number]
[2016-10-26] MEDS: Insulin Detemir 100 units/mL 10mL Vial SUBQ SCH ×2 (22:18→22:21)
[2016-10-27 06:20] LABS: ANION GAP 9.7 (7.0-16.0); BUN - UREA NITROGEN 23 mg/dL (7-25); BUN/CREATININE RATIO 16.4; CALCIUM SERUM 9.9 mg/dL (8.6-10.3); CARBON DIOXIDE 23.3 mEq/L (21.0-31.0); CHLORIDE 110 mEq/L (98-107); CREATININE - SERUM 1.4 mg/dL (0.6-1.2); GLUCOSE 103 mg/dL (70-105); PHOSPHOROUS 3.2 mg/dL (2.5-5.0); SODIUM SERUM 139 mEq/L (136-145)
--- NOTE | 2016-10-27 08:36 | General Progress Note ---
Subjective - Review of Systems Service Date: 10/27/16 Subjective: Patient confused Objective - Results Result Diagrams: 10/26/16 06:05 10/27/16 05:38 Recent Labs: Laboratory Last Values WBC 7.4 Th/cmm (4.8-10.8) D 10/26/16 06:05 RBC 3.16 Mil/cmm (3.80-5.20) L 10/26/16 06:05 Hgb 9.0 gm/dL (12-16) L 10/26/16 06:05 Hct 26.4 % (41.0-60) L D 10/26/16 06:05 MCV 83.4 fl (81-100) 10/26/16 06:05 MCH 28.4 pg (27.0-31.0) 10/26/16 06:05 MCHC Differential 34.0 pg (28.0-36.0) 10/26/16 06:05 RDW 14.7 % (11.5-20.0) 10/26/16 06:05 Plt Count 341 Th/cmm (150-400) 10/26/16 06:05 MPV 8.1 fl 10/26/16 06:05 Neutrophils % 62.9 % (40.0-80.0) 10/26/16 06:05 Band Neutrophils % 1 % (0-10) 10/24/16 15:30 Lymphocytes % 23.9 % (20.0-50.0) 10/26/16 06:05 Monocytes % 10.2 % (2.0-10.0) H 10/26/16 06:05 Eosinophils % 2.8 % (0.0-5.0) 10/26/16 06:05 Basophils % 0.2 % (0.0-2.0) 10/26/16 06:05 Neutrophils (Manual) 83 % (40-80) H 10/24/16 15:30 Lymphocytes 9 % (20-50) L 10/24/16 15:30 Monocytes 6 % (2-10) 10/24/16 15:30 Basophils 1 % (0-3) 10/24/16 15:30 Platelet Estimate ADEQUATE (NORMAL) 10/24/16 15:30 Eos Smear Source URINE 10/26/16 05:43 Eos Smear Total Cells FEW EOSINOPHILS SEEN (NONE SEEN) 10/26/16 05:43 PT 10.2 SECONDS (9.5-11.5) 10/24/16 15:30 INR 0.98 (0.5-1.4) 10/24/16 15:30 PTT (Actin FS) 25.6 SECONDS (26.0-38.0) L 10/24/16 15:30 Sodium 139 mEq/L (136-145) 10/27/16 05:38 Potassium 4.0 mEq/L (3.5-5.1) 10/27/16 05:38 Chloride 110 mEq/L (98-107) H 10/27/16 05:38 Carbon Dioxide 23.3 mEq/L (21.0-31.0) 10/27/16 05:38 Anion Gap 9.7 (7.0-16.0) 10/27/16 05:38 BUN 23 mg/dL (7-25) 10/27/16 05:38 Creatinine 1.4 mg/dL (0.6-1.2) H 10/27/16 05:38 Est GFR ( Amer) TNP 10/27/16 05:38 Est GFR (Non-Af Amer) TNP 10/27/16 05:38 BUN/Creatinine Ratio 16.4 10/27/16 05:38 Glucose 103 mg/dL (70-105) 10/27/16 05:38 POC Glucose 88 MG/DL (70 - 105) 10/27/16 06:08 Hemoglobin A1c % 8.8 % (4.0-6.0) H 10/24/16 15:30 Uric Acid 3.9 mg/dL (2.3-6.6) 10/26/16 06:05 Calcium 9.9 mg/dL (8.6-10.3) 10/27/16 05:38 Phosphorus 3.2 mg/dL (2.5-5.0) 10/27/16 05:38 Magnesium 2.1 mg/dL (1.9-2.7) 10/26/16 06:05 Total Bilirubin 0.3 mg/dL (0.3-1.0) 10/26/16 06:05 AST 17 U/L (13-39) 10/26/16 06:05 ALT 16 U/L (7-52) 10/26/16 06:05 Alkaline Phosphatase 101 U/L (34-104) 10/26/16 06:05 Troponin I 0.03 ng/mL (0.01-0.05) 10/24/16 15:30 Total Protein 6.2 gm/dL (6.0-8.3) 10/26/16 06:05 Albumin 2.7 gm/dL (3.7-5.3) L 10/26/16 06:05 Globulin 3.5 gm/dL 10/26/16 06:05 Albumin/Globulin Ratio 0.8 (1.0-1.8) L 10/26/16 06:05 Triglycerides 183 mg/dL (<150) H 10/24/16 15:30 Cholesterol 131 mg/dL (<200) 10/24/16 15:30 LDL Cholesterol Direct 85 mg/dL (75-193) 10/24/16 15:30 HDL Cholesterol 27 mg/dL (23-92) 10/24/16 15:30 TSH 2.34 uIU/ml (0.34-5.60) 10/24/16 15:30 Ur Random Sodium 103 mmol/L 10/26/16 05:43 Urine Creatinine 28.6 mg/dl (28.0-217.0) 10/26/16 05:43 RPR NONREACTIVE (NONREACTIVE) 10/24/16 15:30 - Physical Exam Vitals and I&O: Vital Signs Temp 98.2 F 10/27/16 04:00 Pulse 69 10/27/16 04:00 Resp 18 10/27/16 04:00 BP 151/72 10/27/16 04:00 Pulse Ox 95 10/27/16 04:00 Intake & Output 10/26/16 10/27/16 10/27/16 18:59 06:59 18:59 Intake Total 1392.5 50 Output Total 3 Balance 1389.5 50 Weight (lbs) 53.615 kg 53.524 kg Intake: Intake, IV Amount 772.5 50 Piperacillin Sodium/ 100 50 Tazobact 3.375 gm In Sodium Chloride 0.9% 50 ml @ 100 mls/hr IV Q6HR [facility] Rx#:[id number] Sodium Chloride 0.9% 1, 672.5 000 ml @ 75 mls/hr IV . [id number] [facility] Rx#:[id number] Oral 620 Output: Urine 3 Other: # Bowel Movements 0 1 Active Medications: Current Medications Acetaminophen (Tylenol) 650 mg PO Q6H PRN PRN Reason: Pain or Fever >101 Stop: 12/23/16 22:05 Ascorbic Acid (Vitamin C) 500 mg PO DAILY [facility] Stop: 12/24/16 08:59 Last Admin: 10/26/16 09:13 Dose: 500 mg Aspirin (Aspirin Chewable) 81 mg PO DAILY [facility] Stop: 12/24/16 08:59 Last Admin: 10/26/16 09:13 Dose: 81 mg Bisacodyl (Dulcolax 5 Mg Ec Tab) 10 mg PO BID [facility] Stop: 12/24/16 08:59 Last Admin: 10/26/16 17:15 Dose: 10 mg Heparin Sodium (Porcine) (Heparin) 5,000 units SUBQ Q12HR [facility] Stop: 12/24/16 20:59 Last Admin: 10/26/16 22:28 Dose: 5,000 units Hydralazine HCl (Apresoline) 25 mg PO BID [facility] Stop: 12/24/16 16:59 Last Admin: 10/26/16 17:16 Dose: 25 mg Piperacillin Sod/Tazobactam (Sod 3.375 gm/ Sodium Chloride) 50 mls @ 100 mls/ hr IV Q6HR [facility] Stop: 12/24/16 00:00 Last Admin: 10/27/16 06:12 Dose: 100 mls/hr Sodium Chloride (Nacl 0.9%) 1,000 mls @ 75 mls/hr IV .[id number] [facility] Stop: 12/24/16 14:14 Last Infusion: 10/26/16 14:50 Dose: 0 mls/hr Insulin Detemir (Levemir Insulin) 24 units SUBQ HS [facility] Stop: 12/24/16 20:59 Last Admin: 10/26/16 22:21 Dose: 24 units Lactobacillus Rhamnosus (Culturelle) 1 each PO DAILY [facility] Stop: 12/24/16 14:59 Last Admin: 10/26/16 09:13 Dose: 1 each Lorazepam (Ativan) 1 mg PO HS PRN; Protocol PRN Reason: Anxiety Stop: 12/23/16 22:05 Miscellaneous (Vte Chemical Prophylaxis Screen/ Admission) 1 ea MC PRN PRN PRN Reason: PROTOCOL Stop: 12/24/16 11:45 Miscellaneous (Probiotic Screen) 1 ea MC PRN PRN PRN Reason: PROTOCOL Stop: 12/24/16 14:28 Mupirocin (Bactroban Oint) 1 appl NS BID [facility] Stop: 10/31/16 09:01 Last Admin: 10/26/16 17:16 Dose: 1 appl Sodium Phosphate (Fleet Enema) 135 ml RC PRN PRN PRN Reason: Constipation Stop: 12/23/16 22:09 General: Alert, No acute distress, Other (Confused, non verbal) HEENT: Atraumatic, Mucous membr. moist/pink Neck: Supple, +2 carotid pulse wo bruit Cardiovascular: Regular rate, Normal S1, Normal S2 Lungs: Clear to auscultation Abdomen: Bowel sounds, Soft Extremities: Other (No edema), no Edema Neurological: Sensation intact, Other (Non ambulatory) Skin: Other (There are 2 sacral ulcer cover.), no Rash Psych/Mental Status: Mood NL, Other (Confused, not oriented) - Procedures Procedures: Procedures Procedure Code Date CHAGO MUSC/FASCIA 20 SQ CM/< 04852 10/24/16 EXCISION OF LEFT HIP MUSCLE, OPEN APPROACH [id number] 10/24/16 Assessment/Plan - Problem List Patient Problems: All Active Problems SACRAL AND BILATERAL BUTTOCK SKIN ULCERS (Acute) - Assessment Assessment: Current Active Problems Problem Status Onset SACRAL AND BILATERAL BUTTOCK SKIN ULCERS Acute Patient is awake, alert, calm, confused, not oriented. Renal function improving , CBC normal. Dx: Cellulitis and sacral decubit ulcer stage 3, AKF, Hyponatremia , DM, HTN, Dementia, S/P CVA, bed bound. - Plan Plan: On IV NS, Sozyn, continue with SNF meds, Debridament was be done, Will continue to monitor. Nutritional Asmnt/Malnutr-PDOC - Dietary Evaluation Malnutrition Findings (Please click <Entered> for more info): Nutritional Asmnt/Malnutrition Start: 10/25/16 15: 29 Text: Status: Complete Freq: Document 10/25/16 15:29 GSUN (Rec: 10/25/16 15:45 GSUN [id number]) Nutritional Asmnt/Malnutrition Patient General Information Nutritional Screening Consult Diagnosis Cellulitis, sacral decubiti ulcer stage 3, AKF, DM Pertinent Medical Hx/Surgical Hx CAD, CHF, CVA, dementia, schizophrenia, osteoarthritis, weakness, cellulitis, acute renal failure, DM, hyponatremia, decubiti ulcer stage 3 Subjective Information 81 year old female from SNF. RD consult for multiple ulcers . Pt undergone decridement of stage 3 sacral decubitus ulcer this AM. Pt was soundly asleep during visit. Pt appeared small frame, no muscle fat wasting noted, age appropriate. PO intake 75% of dinner yesterday, meeting nutritional needs. CBW 110.7lb via bedscale. Current Diet Order/ Nutrition Support Pureed, [id number] Pertinent Medications Vitamin C, Dulcolax, Levemir, Culturelle, Fleet Enema Pertinent Labs 10/24: A1c 8.8H, BUN 27H, creatinine 2H, glucose 312H, potassium 5.1 WNL, calcium 10. 7H Nutritional Hx/Data Height 1.52 m Height (Calculated Centimeters) 152.4 Current Weight (lbs) 50.213 kg Weight (Calculated Kilograms) 50.2 Weight (Calculated Grams) 34770.7 [place] Body Weight 100 Weight Status Approriate GI Symptoms Usual diet at home __ [address] SNF: tayla, [place], [facility] Skin Integrity/Comment: Elliot 12. Sacral stage 3 ulcer, multiple ulcers perineal area. Current %PO Good (75-100%) Estimated Nutritional Goals BEE in Kcals: Using Current wt Calories/Kcals/Kg CBW 110.7lb/50.3kg Kcals Calculated 1258-1509kcal (25-30kcal/kg) Protein: Using Current wt Protein Calculated 60-70g (1.2-1.4g/kg, ulcer vs AKF) Fluid: ml Per MD Nutritional Problem 3. Problem Problem Impaired nutrient utilization related to Etiology acute kidney failure aeb Signs/Symptoms: BUN 27H, creatinine 2H 2. Problem Problem Altered nutrition related laboratory values related to Etiology DM aeb Signs/Symptoms: A1c 8.8, glucose 312 on adm 1. Problem Problem Increased protein needs related to Etiology skin integrity aeb Signs/Symptoms: stage 3 sacral decubiti ulcer Intervention/Recommendation Comments 1. Recommend [id number] low sodium to better promote glycemic control and aid in renal function. Expected Outcomes/Goals Expected Outcomes/Goals 1. PO intake to meet at least 75% of estimated nutritional needs.
[2016-10-27] MEDS: Aspirin 81mg Chewable Tab PO SCH (09:29)
[2016-10-27] MEDS: Multivitamin w/ Minerals Tab PO SCH (09:29)
[2016-10-27] MEDS: Lactobacillus Rhamnosus 10 Billion CFU Capsule PO SCH (09:29)
[2016-10-27] MEDS: Venelex 60gm Tube TP SCH ×2 (09:30→11:22)
[2016-10-27 12:19] LABS: MICROALBUMIN RANDOM RUINE 90.2 ug/mL (Not Estab.)
--- NOTE | 2016-10-27 17:40 | General Progress Note ---
Subjective - Review of Systems Service Date: 10/27/16 Subjective: more awake, comfortable Objective - Results Result Diagrams: 10/26/16 06:05 10/27/16 05:38 Recent Labs: Laboratory Last Values WBC 7.4 Th/cmm (4.8-10.8) D 10/26/16 06:05 RBC 3.16 Mil/cmm (3.80-5.20) L 10/26/16 06:05 Hgb 9.0 gm/dL (12-16) L 10/26/16 06:05 Hct 26.4 % (41.0-60) L D 10/26/16 06:05 MCV 83.4 fl (81-100) 10/26/16 06:05 MCH 28.4 pg (27.0-31.0) 10/26/16 06:05 MCHC Differential 34.0 pg (28.0-36.0) 10/26/16 06:05 RDW 14.7 % (11.5-20.0) 10/26/16 06:05 Plt Count 341 Th/cmm (150-400) 10/26/16 06:05 MPV 8.1 fl 10/26/16 06:05 Neutrophils % 62.9 % (40.0-80.0) 10/26/16 06:05 Band Neutrophils % 1 % (0-10) 10/24/16 15:30 Lymphocytes % 23.9 % (20.0-50.0) 10/26/16 06:05 Monocytes % 10.2 % (2.0-10.0) H 10/26/16 06:05 Eosinophils % 2.8 % (0.0-5.0) 10/26/16 06:05 Basophils % 0.2 % (0.0-2.0) 10/26/16 06:05 Neutrophils (Manual) 83 % (40-80) H 10/24/16 15:30 Lymphocytes 9 % (20-50) L 10/24/16 15:30 Monocytes 6 % (2-10) 10/24/16 15:30 Basophils 1 % (0-3) 10/24/16 15:30 Platelet Estimate ADEQUATE (NORMAL) 10/24/16 15:30 Eos Smear Source URINE 10/26/16 05:43 Eos Smear Total Cells FEW EOSINOPHILS SEEN (NONE SEEN) 10/26/16 05:43 PT 10.2 SECONDS (9.5-11.5) 10/24/16 15:30 INR 0.98 (0.5-1.4) 10/24/16 15:30 PTT (Actin FS) 25.6 SECONDS (26.0-38.0) L 10/24/16 15:30 Sodium 139 mEq/L (136-145) 10/27/16 05:38 Potassium 4.0 mEq/L (3.5-5.1) 10/27/16 05:38 Chloride 110 mEq/L (98-107) H 10/27/16 05:38 Carbon Dioxide 23.3 mEq/L (21.0-31.0) 10/27/16 05:38 Anion Gap 9.7 (7.0-16.0) 10/27/16 05:38 BUN 23 mg/dL (7-25) 10/27/16 05:38 Creatinine 1.4 mg/dL (0.6-1.2) H 10/27/16 05:38 Est GFR ( Amer) TNP 10/27/16 05:38 Est GFR (Non-Af Amer) TNP 10/27/16 05:38 BUN/Creatinine Ratio 16.4 10/27/16 05:38 Glucose 103 mg/dL (70-105) 10/27/16 05:38 POC Glucose 88 MG/DL (70 - 105) 10/27/16 06:08 Hemoglobin A1c % 8.8 % (4.0-6.0) H 10/24/16 15:30 Uric Acid 3.9 mg/dL (2.3-6.6) 10/26/16 06:05 Calcium 9.9 mg/dL (8.6-10.3) 10/27/16 05:38 Phosphorus 3.2 mg/dL (2.5-5.0) 10/27/16 05:38 Magnesium 2.1 mg/dL (1.9-2.7) 10/26/16 06:05 Total Bilirubin 0.3 mg/dL (0.3-1.0) 10/26/16 06:05 AST 17 U/L (13-39) 10/26/16 06:05 ALT 16 U/L (7-52) 10/26/16 06:05 Alkaline Phosphatase 101 U/L (34-104) 10/26/16 06:05 Troponin I 0.03 ng/mL (0.01-0.05) 10/24/16 15:30 Total Protein 6.2 gm/dL (6.0-8.3) 10/26/16 06:05 Albumin 2.7 gm/dL (3.7-5.3) L 10/26/16 06:05 Globulin 3.5 gm/dL 10/26/16 06:05 Albumin/Globulin Ratio 0.8 (1.0-1.8) L 10/26/16 06:05 Triglycerides 183 mg/dL (<150) H 10/24/16 15:30 Cholesterol 131 mg/dL (<200) 10/24/16 15:30 LDL Cholesterol Direct 85 mg/dL (75-193) 10/24/16 15:30 HDL Cholesterol 27 mg/dL (23-92) 10/24/16 15:30 TSH 2.34 uIU/ml (0.34-5.60) 10/24/16 15:30 Ur Random Sodium 103 mmol/L 10/26/16 05:43 Urine Creatinine 28.6 mg/dl (28.0-217.0) 10/26/16 05:43 Urine Microalbumin 90.2 ug/mL (Not Estab.) 10/26/16 05:34 Microalb/Creat Ratio 322.1 mg/g creat (0.0-30.0) H 10/26/16 05:34 RPR NONREACTIVE (NONREACTIVE) 10/24/16 15:30 - Physical Exam Vitals and I&O: Vital Signs Temp 98.2 F 10/27/16 12:00 Pulse 72 10/27/16 12:00 Resp 18 10/27/16 12:00 BP 179/71 10/27/16 12:00 Pulse Ox 98 10/27/16 12:00 Intake & Output 10/26/16 10/27/16 10/27/16 18:59 06:59 18:59 Intake Total 1392.5 100 Output Total 3 Balance 1389.5 100 Weight (lbs) 53.615 kg 53.524 kg 53.524 kg Intake: Intake, IV Amount 772.5 100 Piperacillin Sodium/ 100 100 Tazobact 3.375 gm In Sodium Chloride 0.9% 50 ml @ 100 mls/hr IV Q6HR [facility] Rx#:[id number] Sodium Chloride 0.9% 1, 672.5 000 ml @ 75 mls/hr IV . [id number] [facility] Rx#:[id number] Oral 620 Output: Urine 3 Other: # Bowel Movements 0 1 Active Medications: Current Medications Acetaminophen (Tylenol) 650 mg PO Q6H PRN PRN Reason: Pain or Fever >101 Stop: 12/23/16 22:05 Ascorbic Acid (Vitamin C) 500 mg PO DAILY [facility] Stop: 12/24/16 08:59 Last Admin: 10/27/16 09:29 Dose: 500 mg Aspirin (Aspirin Chewable) 81 mg PO DAILY [facility] Stop: 12/24/16 08:59 Last Admin: 10/27/16 09:29 Dose: 81 mg Bisacodyl (Dulcolax 5 Mg Ec Tab) 10 mg PO BID [facility] Stop: 12/24/16 08:59 Last Admin: 10/27/16 09:30 Dose: Not Given Heparin Sodium (Porcine) (Heparin) 5,000 units SUBQ Q12HR [facility] Stop: 12/24/16 20:59 Last Admin: 10/27/16 09:40 Dose: 5,000 units Hydralazine HCl (Apresoline) 25 mg PO BID [facility] Stop: 12/24/16 16:59 Last Admin: 10/27/16 09:28 Dose: 25 mg Piperacillin Sod/Tazobactam (Sod 3.375 gm/ Sodium Chloride) 50 mls @ 100 mls/ hr IV Q6HR [facility] Stop: 12/24/16 00:00 Last Admin: 10/27/16 12:57 Dose: 100 mls/hr Sodium Chloride (Nacl 0.9%) 1,000 mls @ 75 mls/hr IV .[id number] [facility] Stop: 12/24/16 14:14 Last Infusion: 10/26/16 14:50 Dose: 0 mls/hr Insulin Detemir (Levemir Insulin) 24 units SUBQ HS [facility] Stop: 12/24/16 20:59 Last Admin: 10/26/16 22:21 Dose: 24 units Lactobacillus Rhamnosus (Culturelle) 1 each PO DAILY [facility] Stop: 12/24/16 14:59 Last Admin: 10/27/16 09:29 Dose: 1 each Lorazepam (Ativan) 1 mg PO HS PRN; Protocol PRN Reason: Anxiety Stop: 12/23/16 22:05 Miscellaneous (Vte Chemical Prophylaxis Screen/ Admission) 1 ea MC PRN PRN PRN Reason: PROTOCOL Stop: 12/24/16 11:45 Miscellaneous (Probiotic Screen) 1 ea MC PRN PRN PRN Reason: PROTOCOL Stop: 12/24/16 14:28 Mupirocin (Bactroban Oint) 1 appl NS BID [facility] Stop: 10/31/16 09:01 Last Admin: 10/27/16 11:20 Dose: 1 appl Sodium Phosphate (Fleet Enema) 135 ml RC PRN PRN PRN Reason: Constipation Stop: 12/23/16 22:09 General: Alert, No acute distress, Other (Confused, non verbal) HEENT: Atraumatic, Mucous membr. moist/pink Neck: Supple, +2 carotid pulse wo bruit Cardiovascular: Regular rate, Normal S1, Normal S2 Lungs: Clear to auscultation Abdomen: Bowel sounds, Soft Extremities: Other (No edema), no Edema Neurological: Sensation intact, Other (Non ambulatory) Skin: Other (There are 2 sacral ulcer cover.), no Rash Psych/Mental Status: Mood NL, Other (Confused, not oriented) - Procedures Procedures: Procedures Procedure Code Date CHAGO MUSC/FASCIA 20 SQ CM/< 18515 10/24/16 EXCISION OF LEFT HIP MUSCLE, OPEN APPROACH [id number] 10/24/16 Assessment/Plan - Problem List Patient Problems: All Active Problems SACRAL AND BILATERAL BUTTOCK SKIN ULCERS (Acute) - Assessment Assessment: 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 Decubitus Gluteal Ulcer Severe Malnutrition Type 2 DM Vascular Dementia Ess Htn S/P CVA - Plan Plan: Lab - Result Diagrams 10/26/16 06:05 10/26/16 06:05 Current Medications Acetaminophen (Tylenol) 650 mg PO Q6H PRN PRN Reason: Pain or Fever >101 Stop: 12/23/16 22:05 Ascorbic Acid (Vitamin C) 500 mg PO DAILY [facility] Stop: 12/24/16 08:59 Last Admin: 10/26/16 09:13 Dose: 500 mg Aspirin (Aspirin Chewable) 81 mg PO DAILY [facility] Stop: 12/24/16 08:59 Last Admin: 10/26/16 09:13 Dose: 81 mg Bisacodyl (Dulcolax 5 Mg Ec Tab) 10 mg PO BID [facility] Stop: 12/24/16 08:59 Last Admin: 10/26/16 09:14 Dose: 10 mg Heparin Sodium (Porcine) (Heparin) 5,000 units SUBQ Q12HR [facility] Stop: 12/24/16 20:59 Last Admin: 10/26/16 09:15 Dose: 5,000 units Hydralazine HCl (Apresoline) 25 mg PO BID [facility] Stop: 12/24/16 16:59 Last Admin: 10/26/16 09:13 Dose: 25 mg Piperacillin Sod/Tazobactam (Sod 3.375 gm/ Sodium Chloride) 50 mls @ 100 mls/ hr IV Q6HR [facility] Stop: 12/24/16 00:00 Last Admin: 10/26/16 12:18 Dose: 100 mls/hr Sodium Chloride (Nacl 0.9%) 1,000 mls @ 75 mls/hr IV .[id number] [facility] Stop: 12/24/16 14:14 Last Infusion: 10/26/16 12:48 Dose: 75 mls/hr Insulin Detemir (Levemir Insulin) 24 units SUBQ HS [facility] Stop: 12/24/16 20:59 Lactobacillus Rhamnosus (Culturelle) 1 each PO DAILY [facility] Stop: 12/24/16 14:59 Last Admin: 10/26/16 09:13 Dose: 1 each Lorazepam (Ativan) 1 mg PO HS PRN; Protocol PRN Reason: Anxiety Stop: 12/23/16 22:05 Miscellaneous (Vte Chemical Prophylaxis Screen/ Admission) 1 ea MC PRN PRN PRN Reason: PROTOCOL Stop: 12/24/16 11:45 Miscellaneous (Probiotic Screen) 1 ea MC PRN PRN PRN Reason: PROTOCOL Stop: 12/24/16 14:28 Mupirocin (Bactroban Oint) 1 appl NS BID [facility] Stop: 10/31/16 09:01 Sodium Phosphate (Fleet Enema) 135 ml RC PRN PRN PRN Reason: Constipation Stop: 12/23/16 22:09 Na up to 139 Kidney fnc imporved to 23/1.4 continue NS f/u electrolytes Lab - Result Diagrams 10/26/16 06:05 10/27/16 05:38 Nutritional Asmnt/Malnutr-PDOC - Dietary Evaluation Malnutrition Findings (Please click <Entered> for more info): Nutritional Asmnt/Malnutrition Start: 10/25/16 15: 29 Text: Status: Complete Freq: Document 10/25/16 15:29 GSJAI (Rec: 10/25/16 15:45 GSJAI [id number]) Nutritional Asmnt/Malnutrition Patient General Information Nutritional Screening Consult Diagnosis Cellulitis, sacral decubiti ulcer stage 3, AKF, DM Pertinent Medical Hx/Surgical Hx CAD, CHF, CVA, dementia, schizophrenia, osteoarthritis, weakness, cellulitis, acute renal failure, DM, hyponatremia, decubiti ulcer stage 3 Subjective Information 81 year old female from SNF. RD consult for multiple ulcers . Pt undergone decridement of stage 3 sacral decubitus ulcer this AM. Pt was soundly asleep during visit. Pt appeared small frame, no muscle fat wasting noted, age appropriate. PO intake 75% of dinner yesterday, meeting nutritional needs. CBW 110.7lb via bedscale. Current Diet Order/ Nutrition Support Rajiv, [id number] Pertinent Medications Vitamin C, Dulcolax, Levemir, Culturelle, Fleet Enema Pertinent Labs 10/24: A1c 8.8H, BUN 27H, creatinine 2H, glucose 312H, potassium 5.1 WNL, calcium 10. 7H Nutritional Hx/Data Height 1.52 m Height (Calculated Centimeters) 152.4 Current Weight (lbs) 50.213 kg Weight (Calculated Kilograms) 50.2 Weight (Calculated Grams) 49289.7 [place] Body Weight 100 Weight Status Approriate GI Symptoms Usual diet at home __ [address] [facility]: rajiv, [place], [facility] Skin Integrity/Comment: Elliot 12. Sacral stage 3 ulcer, multiple ulcers perineal area. Current %PO Good (75-100%) Estimated Nutritional Goals BEE in Kcals: Using Current wt Calories/Kcals/Kg CBW 110.7lb/50.3kg Kcals Calculated 1258-1509kcal (25-30kcal/kg) Protein: Using Current wt Protein Calculated 60-70g (1.2-1.4g/kg, ulcer vs AKF) Fluid: ml Per MD Nutritional Problem 3. Problem Problem Impaired nutrient utilization related to Etiology acute kidney failure aeb Signs/Symptoms: BUN 27H, creatinine 2H 2. Problem Problem Altered nutrition related laboratory values related to Etiology DM aeb Signs/Symptoms: A1c 8.8, glucose 312 on adm 1. Problem Problem Increased protein needs related to Etiology skin integrity aeb Signs/Symptoms: stage 3 sacral decubiti ulcer Intervention/Recommendation Comments 1. Recommend [id number] low sodium to better promote glycemic control and aid in renal function. Expected Outcomes/Goals Expected Outcomes/Goals 1. PO intake to meet at least 75% of estimated nutritional needs.
[2016-10-27] MEDS: Insulin Detemir 100 units/mL 10mL Vial SUBQ SCH ×2 (21:30→22:06)
[2016-10-28] MEDS ORDERED: Piperacillin Sodium/Tazobact 3.375 gm Vial IV ONE ×2 (00:05→05:10)
[2016-10-28] MEDS: Sodium Chloride 0.9% 1,000 ML IV SCH ×2 (00:57→11:58)
[2016-10-28 06:58] LABS: % BASOPHILS 0.1 % (0.0-2.0); % EOSINOPHILS 3.5 % (0.0-5.0); % LYMPHOCYTES 29.7 % (20.0-50.0); % MONOCYTES 9.2 % (2.0-10.0); % NEUTROPHILS 57.5 % (40.0-80.0); HEMOGLOBIN 9.3 gm/dL (12-16); MEAN CORPUSCULAR HEMOGLOBIN 28.1 pg (27.0-31.0); MEAN CORPUSCULAR HGB CONC 33.1 pg (28.0-36.0); MEAN PLATELET VOLUME 8.3 fl; NEUTROPHILE ABSOLUTE 4.2 Th/cmm (1.8-8.0); PLATELET COUNT 320 Th/cmm (150-400); RED CELL DISTRIBUTION WIDTH 14.9 % (11.5-20.0); WHITE BLOOD COUNT 7.4 Th/cmm (4.8-10.8)
[2016-10-28] MEDS: INSULIN ASPART SLIDING SCALE 100 UNITS/ML UNIT SUBQ SCH ×3 (07:30→17:21)
[2016-10-28 07:38] LABS: ALB/GLOB RATIO 0.8 (1.0-1.8); ALKALINE PHOSPHATASE 95 U/L (34-104); ANION GAP 9.5 (7.0-16.0); BILIRUBIN,TOTAL 0.2 mg/dL (0.3-1.0); BUN - UREA NITROGEN 25 mg/dL (7-25); BUN/CREATININE RATIO 16.7; CALCIUM SERUM 9.9 mg/dL (8.6-10.3); CARBON DIOXIDE 22.7 mEq/L (21.0-31.0); CHLORIDE 108 mEq/L (98-107); CREATININE - SERUM 1.5 mg/dL (0.6-1.2); GLUCOSE 220 mg/dL (70-105); POTASSIUM SERUM 4.2 mEq/L (3.5-5.1); SGOT 16 U/L (13-39); SGPT/ALT 17 U/L (7-52); SODIUM SERUM 136 mEq/L (136-145)
--- NOTE | 2016-10-28 08:59 | Discharge Summary ---
General Discharge Summary - Discharge Summary Date of Admission: 10/25/16 Admitting Diagnosis: Cellulitis, Sacral Decubit Ulcer stage 3, AKF, Hyponatremia , DM, HTN, Demet Patient Problems: All Active Problems SACRAL AND BILATERAL BUTTOCK SKIN ULCERS (Acute) Discharge Date: 10/28/16 Discharge Diagnosis: Cellulitis, Bilateral Buttock ulcers,, AKF, Hyponatrremia, DM, HTN, Cornelio Laboratory Findings: Laboratory Tests 10/24/16 10/25/16 10/25/16 20:33 09:14 11:22 WBC RBC Hgb Hct MCV MCH MCHC Differential RDW Plt Count MPV Neutrophils % Lymphocytes % Monocytes % Eosinophils % Basophils % Eos Smear Source Eos Smear Total Cells Sodium Potassium Chloride Carbon Dioxide Anion Gap BUN Creatinine Est GFR ( Amer) Est GFR (Non-Af Amer) BUN/Creatinine Ratio Glucose POC Glucose 325 H 204 H 152 H Plasma/Ser Osmolality Uric Acid Calcium Phosphorus Magnesium Total Bilirubin AST ALT Alkaline Phosphatase Total Protein Albumin Globulin Albumin/Globulin Ratio Ur Random Sodium Urine Creatinine Urine Microalbumin Microalb/Creat Ratio 10/25/16 10/26/16 10/26/16 20:26 05:34 05:43 WBC RBC Hgb Hct MCV MCH MCHC Differential RDW Plt Count MPV Neutrophils % Lymphocytes % Monocytes % Eosinophils % Basophils % Eos Smear Source URINE Eos Smear Total Cells FEW EOSINOPHILS SEEN Sodium Potassium Chloride Carbon Dioxide Anion Gap BUN Creatinine Est GFR ( Amer) Est GFR (Non-Af Amer) BUN/Creatinine Ratio Glucose POC Glucose 185 H Plasma/Ser Osmolality Uric Acid Calcium Phosphorus Magnesium Total Bilirubin AST ALT Alkaline Phosphatase Total Protein Albumin Globulin Albumin/Globulin Ratio Ur Random Sodium Urine Creatinine 28.0 Urine Microalbumin 90.2 Microalb/Creat Ratio 322.1 H 10/26/16 10/26/16 10/26/16 05:43 06:05 06:05 WBC 7.4 D RBC 3.16 L Hgb 9.0 L Hct 26.4 L D MCV 83.4 MCH 28.4 MCHC Differential 34.0 RDW 14.7 Plt Count 341 MPV 8.1 Neutrophils % 62.9 Lymphocytes % 23.9 Monocytes % 10.2 H Eosinophils % 2.8 Basophils % 0.2 Eos Smear Source Eos Smear Total Cells Sodium 137 Potassium 4.1 Chloride 108 H Carbon Dioxide 23.9 Anion Gap 9.2 BUN 26 H Creatinine 1.5 H Est GFR ( Amer) TNP Est GFR (Non-Af Amer) TNP BUN/Creatinine Ratio 17.3 Glucose 85 POC Glucose Plasma/Ser Osmolality Uric Acid 3.9 Calcium 10.0 Phosphorus 2.1 L Magnesium 2.1 Total Bilirubin 0.3 AST 17 ALT 16 Alkaline Phosphatase 101 Total Protein 6.2 Albumin 2.7 L Globulin 3.5 Albumin/Globulin Ratio 0.8 L Ur Random Sodium 103 Urine Creatinine 28.6 Urine Microalbumin Microalb/Creat Ratio 10/26/16 10/26/16 10/27/16 06:05 22:04 05:38 WBC RBC Hgb Hct MCV MCH MCHC Differential RDW Plt Count MPV Neutrophils % Lymphocytes % Monocytes % Eosinophils % Basophils % Eos Smear Source Eos Smear Total Cells Sodium 139 Potassium 4.0 Chloride 110 H Carbon Dioxide 23.3 Anion Gap 9.7 BUN 23 Creatinine 1.4 H Est GFR ( Amer) TNP Est GFR (Non-Af Amer) TNP BUN/Creatinine Ratio 16.4 Glucose 103 POC Glucose 208 H Plasma/Ser Osmolality 293 Uric Acid Calcium 9.9 Phosphorus 3.2 Magnesium Total Bilirubin AST ALT Alkaline Phosphatase Total Protein Albumin Globulin Albumin/Globulin Ratio Ur Random Sodium Urine Creatinine Urine Microalbumin Microalb/Creat Ratio 10/27/16 10/27/16 10/28/16 06:08 22:04 05:22 WBC RBC Hgb Hct MCV MCH MCHC Differential RDW Plt Count MPV Neutrophils % Lymphocytes % Monocytes % Eosinophils % Basophils % Eos Smear Source Eos Smear Total Cells Sodium Potassium Chloride Carbon Dioxide Anion Gap BUN Creatinine Est GFR ( Amer) Est GFR (Non-Af Amer) BUN/Creatinine Ratio Glucose POC Glucose 88 252 H 243 H Plasma/Ser Osmolality Uric Acid Calcium Phosphorus Magnesium Total Bilirubin AST ALT Alkaline Phosphatase Total Protein Albumin Globulin Albumin/Globulin Ratio Ur Random Sodium Urine Creatinine Urine Microalbumin Microalb/Creat Ratio 10/28/16 10/28/16 06:40 06:40 WBC 7.4 RBC 3.30 L Hgb 9.3 L Hct 28.0 L MCV 85.0 MCH 28.1 MCHC Differential 33.1 RDW 14.9 Plt Count 320 MPV 8.3 Neutrophils % 57.5 Lymphocytes % 29.7 Monocytes % 9.2 Eosinophils % 3.5 Basophils % 0.1 Eos Smear Source Eos Smear Total Cells Sodium 136 Potassium 4.2 Chloride 108 H Carbon Dioxide 22.7 Anion Gap 9.5 BUN 25 Creatinine 1.5 H Est GFR ( Amer) TNP Est GFR (Non-Af Amer) TNP BUN/Creatinine Ratio 16.7 Glucose 220 H POC Glucose Plasma/Ser Osmolality Uric Acid Calcium 9.9 Phosphorus Magnesium Total Bilirubin 0.2 L AST 16 ALT 17 Alkaline Phosphatase 95 Total Protein 6.3 Albumin 2.7 L Globulin 3.6 Albumin/Globulin Ratio 0.8 L Ur Random Sodium Urine Creatinine Urine Microalbumin Microalb/Creat Ratio Hospital Course: Patient was hospitalized, started with IV NS, Sozyn, debridament was done, consult with surgery and Nephro were requested and recommandations were follow. Patient improved and was DC to SNF. Treatment: IV NS, AB, surgical debridament. Condition at Discharge: Stable Disposition: Discharge/Transfered to SNF Home Medications: Home Medication Medication Instructions Recorded Type Acetaminophen [Tylenol] 650 mg PO Q6H PRN tab 07/05/16 Rx Bisacodyl [Dulcolax 5 Mg Ec Tab] 10 mg PO BID ect 07/05/16 Rx Captopril [Capoten 25 mg Tab] 25 mg PO BID tab 07/05/16 Rx Sodium Chloride Tab [NaCL Tab] 1 gm PO BID tab 07/05/16 Rx cloNIDine HCl [Catapres] 0.1 mg PO Q8HR PRN tab 07/05/16 Rx Alginate Dressing [Algisite M] 1 each TP DAILY 10/24/16 History Ascorbate Calcium [Vitamin C] 500 mg PO DAILY 10/24/16 History Aspirin [Aspirin Chewable] 81 mg PO DAILY 10/24/16 History Insulin Aspart Sliding Scale 0 units SUBQ ACHS 10/24/16 History [NovoLOG INSULIN SLIDING SCALE] Insulin Glargine, Recombinan 24 units SUBQ HS 10/24/16 History [Lantus] Lorazepam [Ativan] 1 mg PO HS PRN 10/24/16 History Memory Builder 3 tab PO BID 10/24/16 History Multivitamin with Minerals 1 tab PO DAILY 10/24/16 History [Multivitamins with Minerals] Sennosides A and B [Senna] 8.6 mg PO DAILY 10/24/16 History traMADol HCl [Ultram*] 50 mg PO X1 10/24/16 History Inpatient Medications: Current Medications Acetaminophen (Tylenol) 650 mg PO Q6H PRN PRN Reason: Pain or Fever >101 Stop: 12/23/16 22:05 Ascorbic Acid (Vitamin C) 500 mg PO DAILY [facility] Stop: 12/24/16 08:59 Last Admin: 10/27/16 09:29 Dose: 500 mg Aspirin (Aspirin Chewable) 81 mg PO DAILY [facility] Stop: 12/24/16 08:59 Last Admin: 10/27/16 09:29 Dose: 81 mg Bisacodyl (Dulcolax 5 Mg Ec Tab) 10 mg PO BID [facility] Stop: 12/24/16 08:59 Last Admin: 10/27/16 18:40 Dose: 10 mg Heparin Sodium (Porcine) (Heparin) 5,000 units SUBQ Q12HR [facility] Stop: 12/24/16 20:59 Last Admin: 10/27/16 22:06 Dose: 5,000 units Hydralazine HCl (Apresoline) 25 mg PO BID [facility] Stop: 12/24/16 16:59 Last Admin: 10/27/16 18:40 Dose: 25 mg Piperacillin Sod/Tazobactam (Sod 3.375 gm/ Sodium Chloride) 50 mls @ 100 mls/ hr IV Q6HR [facility] Stop: 12/24/16 00:00 Last Admin: 10/28/16 05:13 Dose: 100 mls/hr Sodium Chloride (Nacl 0.9%) 1,000 mls @ 75 mls/hr IV .[id number] [facility] Stop: 12/24/16 14:14 Last Admin: 10/28/16 00:57 Dose: 75 mls/hr Insulin Aspart (Novolog Insulin Sliding Scale) 0 units SUBQ ACHS [facility] PRN Reason: Protocol Stop: 12/27/16 07:29 Last Admin: 10/28/16 07:30 Dose: 5 units Insulin Detemir (Levemir Insulin) 24 units SUBQ HS [facility] Stop: 12/24/16 20:59 Last Admin: 10/27/16 21:30 Dose: 24 units Lactobacillus Rhamnosus (Culturelle) 1 each PO DAILY [facility] Stop: 12/24/16 14:59 Last Admin: 10/27/16 09:29 Dose: 1 each Lorazepam (Ativan) 1 mg PO HS PRN; Protocol PRN Reason: Anxiety Stop: 12/23/16 22:05 Miscellaneous (Vte Chemical Prophylaxis Screen/ Admission) 1 ea MC PRN PRN PRN Reason: PROTOCOL Stop: 12/24/16 11:45 Miscellaneous (Probiotic Screen) 1 ea MC PRN PRN PRN Reason: PROTOCOL Stop: 12/24/16 14:28 Mupirocin (Bactroban Oint) 1 appl NS BID [facility] Stop: 10/31/16 09:01 Last Admin: 10/27/16 11:20 Dose: 1 appl Sodium Phosphate (Fleet Enema) 135 ml RC PRN PRN PRN Reason: Constipation Stop: 12/23/16 22:09 Activity: Bed Rest Discharge Diet: 2 Gram Sodium Consults and Follow-Up: Damian La [Primary Care Provider] - Consulting Speciality: Other (Surgery.)
--- NOTE | 2016-10-28 09:01 | General Progress Note ---
Subjective - Review of Systems Service Date: 10/28/16 Events since last encounter: may DC without wound VAc local wound care - Venelex or Santyl oint daily Objective - Results Result Diagrams: 10/28/16 06:40 10/28/16 06:40 Recent Labs: Laboratory Last Values WBC 7.4 Th/cmm (4.8-10.8) 10/28/16 06:40 RBC 3.30 Mil/cmm (3.80-5.20) L 10/28/16 06:40 Hgb 9.3 gm/dL (12-16) L 10/28/16 06:40 Hct 28.0 % (41.0-60) L 10/28/16 06:40 MCV 85.0 fl (81-100) 10/28/16 06:40 MCH 28.1 pg (27.0-31.0) 10/28/16 06:40 MCHC Differential 33.1 pg (28.0-36.0) 10/28/16 06:40 RDW 14.9 % (11.5-20.0) 10/28/16 06:40 Plt Count 320 Th/cmm (150-400) 10/28/16 06:40 MPV 8.3 fl 10/28/16 06:40 Neutrophils % 57.5 % (40.0-80.0) 10/28/16 06:40 Band Neutrophils % 1 % (0-10) 10/24/16 15:30 Lymphocytes % 29.7 % (20.0-50.0) 10/28/16 06:40 Monocytes % 9.2 % (2.0-10.0) 10/28/16 06:40 Eosinophils % 3.5 % (0.0-5.0) 10/28/16 06:40 Basophils % 0.1 % (0.0-2.0) 10/28/16 06:40 Neutrophils (Manual) 83 % (40-80) H 10/24/16 15:30 Lymphocytes 9 % (20-50) L 10/24/16 15:30 Monocytes 6 % (2-10) 10/24/16 15:30 Basophils 1 % (0-3) 10/24/16 15:30 Platelet Estimate ADEQUATE (NORMAL) 10/24/16 15:30 Eos Smear Source URINE 10/26/16 05:43 Eos Smear Total Cells FEW EOSINOPHILS SEEN (NONE SEEN) 10/26/16 05:43 PT 10.2 SECONDS (9.5-11.5) 10/24/16 15:30 INR 0.98 (0.5-1.4) 10/24/16 15:30 PTT (Actin FS) 25.6 SECONDS (26.0-38.0) L 10/24/16 15:30 Sodium 136 mEq/L (136-145) 10/28/16 06:40 Potassium 4.2 mEq/L (3.5-5.1) 10/28/16 06:40 Chloride 108 mEq/L (98-107) H 10/28/16 06:40 Carbon Dioxide 22.7 mEq/L (21.0-31.0) 10/28/16 06:40 Anion Gap 9.5 (7.0-16.0) 10/28/16 06:40 BUN 25 mg/dL (7-25) 10/28/16 06:40 Creatinine 1.5 mg/dL (0.6-1.2) H 10/28/16 06:40 Est GFR ( Amer) TNP 10/28/16 06:40 Est GFR (Non-Af Amer) TNP 10/28/16 06:40 BUN/Creatinine Ratio 16.7 10/28/16 06:40 Glucose 220 mg/dL (70-105) H 10/28/16 06:40 POC Glucose 243 MG/DL (70 - 105) H 10/28/16 05:22 Hemoglobin A1c % 8.8 % (4.0-6.0) H 10/24/16 15:30 Plasma/Ser Osmolality 293 mOsmol/kg (280-301) 10/26/16 06:05 Uric Acid 3.9 mg/dL (2.3-6.6) 10/26/16 06:05 Calcium 9.9 mg/dL (8.6-10.3) 10/28/16 06:40 Phosphorus 3.2 mg/dL (2.5-5.0) 10/27/16 05:38 Magnesium 2.1 mg/dL (1.9-2.7) 10/26/16 06:05 Total Bilirubin 0.2 mg/dL (0.3-1.0) L 10/28/16 06:40 AST 16 U/L (13-39) 10/28/16 06:40 ALT 17 U/L (7-52) 10/28/16 06:40 Alkaline Phosphatase 95 U/L (34-104) 10/28/16 06:40 Troponin I 0.03 ng/mL (0.01-0.05) 10/24/16 15:30 Total Protein 6.3 gm/dL (6.0-8.3) 10/28/16 06:40 Albumin 2.7 gm/dL (3.7-5.3) L 10/28/16 06:40 Globulin 3.6 gm/dL 10/28/16 06:40 Albumin/Globulin Ratio 0.8 (1.0-1.8) L 10/28/16 06:40 Triglycerides 183 mg/dL (<150) H 10/24/16 15:30 Cholesterol 131 mg/dL (<200) 10/24/16 15:30 LDL Cholesterol Direct 85 mg/dL (75-193) 10/24/16 15:30 HDL Cholesterol 27 mg/dL (23-92) 10/24/16 15:30 TSH 2.34 uIU/ml (0.34-5.60) 10/24/16 15:30 Ur Random Sodium 103 mmol/L 10/26/16 05:43 Urine Creatinine 28.6 mg/dl (28.0-217.0) 10/26/16 05:43 Urine Microalbumin 90.2 ug/mL (Not Estab.) 10/26/16 05:34 Microalb/Creat Ratio 322.1 mg/g creat (0.0-30.0) H 10/26/16 05:34 RPR NONREACTIVE (NONREACTIVE) 10/24/16 15:30 - Physical Exam Vitals and I&O: Vital Signs Temp 98.3 F 10/28/16 08:00 Pulse 66 10/28/16 08:00 Resp 18 10/28/16 08:00 BP 170/79 10/28/16 08:00 Pulse Ox 98 10/28/16 08:00 Intake & Output 10/27/16 10/28/16 10/28/16 18:59 06:59 18:59 Intake Total 50 50 Output Total 75 Balance 50 -25 Weight (lbs) 53.524 kg 52.98 kg Intake: Intake, IV Amount 50 50 Piperacillin Sodium/ 50 50 Tazobact 3.375 gm In Sodium Chloride 0.9% 50 ml @ 100 mls/hr IV Q6HR [facility] Rx#:[id number] Sodium Chloride 0.9% 1, 0 000 ml @ 75 mls/hr IV . [id number] [facility] Rx#:[id number] Output: Drainage 75 Left Sacrum 75 Other: # Voids 2 # Bowel Movements 0 Active Medications: Current Medications Acetaminophen (Tylenol) 650 mg PO Q6H PRN PRN Reason: Pain or Fever >101 Stop: 12/23/16 22:05 Ascorbic Acid (Vitamin C) 500 mg PO DAILY [facility] Stop: 12/24/16 08:59 Last Admin: 10/27/16 09:29 Dose: 500 mg Aspirin (Aspirin Chewable) 81 mg PO DAILY [facility] Stop: 12/24/16 08:59 Last Admin: 10/27/16 09:29 Dose: 81 mg Bisacodyl (Dulcolax 5 Mg Ec Tab) 10 mg PO BID [facility] Stop: 12/24/16 08:59 Last Admin: 10/27/16 18:40 Dose: 10 mg Heparin Sodium (Porcine) (Heparin) 5,000 units SUBQ Q12HR [facility] Stop: 12/24/16 20:59 Last Admin: 10/27/16 22:06 Dose: 5,000 units Hydralazine HCl (Apresoline) 25 mg PO BID [facility] Stop: 12/24/16 16:59 Last Admin: 10/27/16 18:40 Dose: 25 mg Piperacillin Sod/Tazobactam (Sod 3.375 gm/ Sodium Chloride) 50 mls @ 100 mls/ hr IV Q6HR [facility] Stop: 12/24/16 00:00 Last Admin: 10/28/16 05:13 Dose: 100 mls/hr Sodium Chloride (Nacl 0.9%) 1,000 mls @ 75 mls/hr IV .[id number] [facility] Stop: 12/24/16 14:14 Last Admin: 10/28/16 00:57 Dose: 75 mls/hr Insulin Aspart (Novolog Insulin Sliding Scale) 0 units SUBQ ACHS [facility] PRN Reason: Protocol Stop: 12/27/16 07:29 Last Admin: 10/28/16 07:30 Dose: 5 units Insulin Detemir (Levemir Insulin) 24 units SUBQ HS [facility] Stop: 12/24/16 20:59 Last Admin: 10/27/16 21:30 Dose: 24 units Lactobacillus Rhamnosus (Culturelle) 1 each PO DAILY [facility] Stop: 12/24/16 14:59 Last Admin: 10/27/16 09:29 Dose: 1 each Lorazepam (Ativan) 1 mg PO HS PRN; Protocol PRN Reason: Anxiety Stop: 12/23/16 22:05 Miscellaneous (Vte Chemical Prophylaxis Screen/ Admission) 1 ea MC PRN PRN PRN Reason: PROTOCOL Stop: 12/24/16 11:45 Miscellaneous (Probiotic Screen) 1 ea MC PRN PRN PRN Reason: PROTOCOL Stop: 12/24/16 14:28 Mupirocin (Bactroban Oint) 1 appl NS BID [facility] Stop: 10/31/16 09:01 Last Admin: 10/27/16 11:20 Dose: 1 appl Sodium Phosphate (Fleet Enema) 135 ml RC PRN PRN PRN Reason: Constipation Stop: 12/23/16 22:09 General: Alert, No acute distress, Other (Confused, non verbal) HEENT: Atraumatic, Mucous membr. moist/pink Neck: Supple, +2 carotid pulse wo bruit Cardiovascular: Regular rate, Normal S1, Normal S2 Lungs: Clear to auscultation Abdomen: Bowel sounds, Soft Extremities: Other (No edema), no Edema Neurological: Sensation intact, Other (Non ambulatory) Skin: Other (There are 2 sacral ulcer cover.), no Rash Psych/Mental Status: Mood NL, Other (Confused, not oriented) - Procedures Procedures: Procedures Procedure Code Date CHAGO MUSC/FASCIA 20 SQ CM/< 45181 10/24/16 EXCISION OF LEFT HIP MUSCLE, OPEN APPROACH [id number] 10/24/16 Assessment/Plan - Problem List Patient Problems: All Active Problems SACRAL AND BILATERAL BUTTOCK SKIN ULCERS (Acute) Nutritional Asmnt/Malnutr-PDOC - Dietary Evaluation Malnutrition Findings (Please click <Entered> for more info): Nutritional Asmnt/Malnutrition Start: 10/25/16 15: 29 Text: Status: Complete Freq: Document 10/25/16 15:29 GSUN (Rec: 10/25/16 15:45 GSUN [id number]) Nutritional Asmnt/Malnutrition Patient General Information Nutritional Screening Consult Diagnosis Cellulitis, sacral decubiti ulcer stage 3, AKF, DM Pertinent Medical Hx/Surgical Hx CAD, CHF, CVA, dementia, schizophrenia, osteoarthritis, weakness, cellulitis, acute renal failure, DM, hyponatremia, decubiti ulcer stage 3 Subjective Information 81 year old female from SNF. RD consult for multiple ulcers . Pt undergone decridement of stage 3 sacral decubitus ulcer this AM. Pt was soundly asleep during visit. Pt appeared small frame, no muscle fat wasting noted, age appropriate. PO intake 75% of dinner yesterday, meeting nutritional needs. CBW 110.7lb via bedscale. Current Diet Order/ Nutrition Support Rajiv, [id number] Pertinent Medications Vitamin C, Dulcolax, Levemir, Culturelle, Fleet Enema Pertinent Labs 10/24: A1c 8.8H, BUN 27H, creatinine 2H, glucose 312H, potassium 5.1 WNL, calcium 10. 7H Nutritional Hx/Data Height 1.52 m Height (Calculated Centimeters) 152.4 Current Weight (lbs) 50.213 kg Weight (Calculated Kilograms) 50.2 Weight (Calculated Grams) 14180.7 [place] Body Weight 100 Weight Status Approriate GI Symptoms Usual diet at home __ [address] SNF: [facility], [facility] Skin Integrity/Comment: Elliot 12. Sacral stage 3 ulcer, multiple ulcers perineal area. Current %PO Good (75-100%) Estimated Nutritional Goals BEE in Kcals: Using Current wt Calories/Kcals/Kg CBW 110.7lb/50.3kg Kcals Calculated 1258-1509kcal (25-30kcal/kg) Protein: Using Current wt Protein Calculated 60-70g (1.2-1.4g/kg, ulcer vs AKF) Fluid: ml Per MD Nutritional Problem 3. Problem Problem Impaired nutrient utilization related to Etiology acute kidney failure aeb Signs/Symptoms: BUN 27H, creatinine 2H 2. Problem Problem Altered nutrition related laboratory values related to Etiology DM aeb Signs/Symptoms: A1c 8.8, glucose 312 on adm 1. Problem Problem Increased protein needs related to Etiology skin integrity aeb Signs/Symptoms: stage 3 sacral decubiti ulcer Intervention/Recommendation Comments 1. Recommend [id number] low sodium to better promote glycemic control and aid in renal function. Expected Outcomes/Goals Expected Outcomes/Goals 1. PO intake to meet at least 75% of estimated nutritional needs.
[2016-10-28] MEDS: Lactobacillus Rhamnosus 10 Billion CFU Capsule PO SCH (09:48)
[2016-10-28] MEDS: Aspirin 81mg Chewable Tab PO SCH (09:49)
[2016-10-28] MEDS: Venelex 60gm Tube TP SCH (10:07)
--- NOTE | 2016-10-28 14:33 | General Progress Note ---
Subjective - Review of Systems Service Date: 10/28/16 Subjective: more awake, comfortable Objective - Results Result Diagrams: 10/28/16 06:40 10/28/16 06:40 Recent Labs: Laboratory Last Values WBC 7.4 Th/cmm (4.8-10.8) 10/28/16 06:40 RBC 3.30 Mil/cmm (3.80-5.20) L 10/28/16 06:40 Hgb 9.3 gm/dL (12-16) L 10/28/16 06:40 Hct 28.0 % (41.0-60) L 10/28/16 06:40 MCV 85.0 fl (81-100) 10/28/16 06:40 MCH 28.1 pg (27.0-31.0) 10/28/16 06:40 MCHC Differential 33.1 pg (28.0-36.0) 10/28/16 06:40 RDW 14.9 % (11.5-20.0) 10/28/16 06:40 Plt Count 320 Th/cmm (150-400) 10/28/16 06:40 MPV 8.3 fl 10/28/16 06:40 Neutrophils % 57.5 % (40.0-80.0) 10/28/16 06:40 Band Neutrophils % 1 % (0-10) 10/24/16 15:30 Lymphocytes % 29.7 % (20.0-50.0) 10/28/16 06:40 Monocytes % 9.2 % (2.0-10.0) 10/28/16 06:40 Eosinophils % 3.5 % (0.0-5.0) 10/28/16 06:40 Basophils % 0.1 % (0.0-2.0) 10/28/16 06:40 Neutrophils (Manual) 83 % (40-80) H 10/24/16 15:30 Lymphocytes 9 % (20-50) L 10/24/16 15:30 Monocytes 6 % (2-10) 10/24/16 15:30 Basophils 1 % (0-3) 10/24/16 15:30 Platelet Estimate ADEQUATE (NORMAL) 10/24/16 15:30 Eos Smear Source URINE 10/26/16 05:43 Eos Smear Total Cells FEW EOSINOPHILS SEEN (NONE SEEN) 10/26/16 05:43 PT 10.2 SECONDS (9.5-11.5) 10/24/16 15:30 INR 0.98 (0.5-1.4) 10/24/16 15:30 PTT (Actin FS) 25.6 SECONDS (26.0-38.0) L 10/24/16 15:30 Sodium 136 mEq/L (136-145) 10/28/16 06:40 Potassium 4.2 mEq/L (3.5-5.1) 10/28/16 06:40 Chloride 108 mEq/L (98-107) H 10/28/16 06:40 Carbon Dioxide 22.7 mEq/L (21.0-31.0) 10/28/16 06:40 Anion Gap 9.5 (7.0-16.0) 10/28/16 06:40 BUN 25 mg/dL (7-25) 10/28/16 06:40 Creatinine 1.5 mg/dL (0.6-1.2) H 10/28/16 06:40 Est GFR ( Amer) TNP 10/28/16 06:40 Est GFR (Non-Af Amer) TNP 10/28/16 06:40 BUN/Creatinine Ratio 16.7 10/28/16 06:40 Glucose 220 mg/dL (70-105) H 10/28/16 06:40 POC Glucose 139 MG/DL (70 - 105) H 10/28/16 12:29 Hemoglobin A1c % 8.8 % (4.0-6.0) H 10/24/16 15:30 Plasma/Ser Osmolality 293 mOsmol/kg (280-301) 10/26/16 06:05 Uric Acid 3.9 mg/dL (2.3-6.6) 10/26/16 06:05 Calcium 9.9 mg/dL (8.6-10.3) 10/28/16 06:40 Phosphorus 3.2 mg/dL (2.5-5.0) 10/27/16 05:38 Magnesium 2.1 mg/dL (1.9-2.7) 10/26/16 06:05 Total Bilirubin 0.2 mg/dL (0.3-1.0) L 10/28/16 06:40 AST 16 U/L (13-39) 10/28/16 06:40 ALT 17 U/L (7-52) 10/28/16 06:40 Alkaline Phosphatase 95 U/L (34-104) 10/28/16 06:40 Troponin I 0.03 ng/mL (0.01-0.05) 10/24/16 15:30 Total Protein 6.3 gm/dL (6.0-8.3) 10/28/16 06:40 Albumin 2.7 gm/dL (3.7-5.3) L 10/28/16 06:40 Globulin 3.6 gm/dL 10/28/16 06:40 Albumin/Globulin Ratio 0.8 (1.0-1.8) L 10/28/16 06:40 Triglycerides 183 mg/dL (<150) H 10/24/16 15:30 Cholesterol 131 mg/dL (<200) 10/24/16 15:30 LDL Cholesterol Direct 85 mg/dL (75-193) 10/24/16 15:30 HDL Cholesterol 27 mg/dL (23-92) 10/24/16 15:30 TSH 2.34 uIU/ml (0.34-5.60) 10/24/16 15:30 Ur Random Sodium 103 mmol/L 10/26/16 05:43 Urine Creatinine 28.6 mg/dl (28.0-217.0) 10/26/16 05:43 Urine Microalbumin 90.2 ug/mL (Not Estab.) 10/26/16 05:34 Microalb/Creat Ratio 322.1 mg/g creat (0.0-30.0) H 10/26/16 05:34 RPR NONREACTIVE (NONREACTIVE) 10/24/16 15:30 - Physical Exam Vitals and I&O: Vital Signs Temp 97.9 F 10/28/16 12:00 Pulse 85 10/28/16 13:15 Resp 18 10/28/16 12:00 BP 174/58 10/28/16 12:00 Pulse Ox 95 10/28/16 12:00 Intake & Output 10/27/16 10/28/16 10/28/16 18:59 06:59 18:59 Intake Total 50 100 826.25 Output Total 75 Balance 50 25 826.25 Weight (lbs) 53.524 kg 52.98 kg Intake: Intake, IV Amount 50 100 826.25 Piperacillin Sodium/ 50 100 Tazobact 3.375 gm In Sodium Chloride 0.9% 50 ml @ 100 mls/hr IV Q6HR [facility] Rx#:[id number] Sodium Chloride 0.9% 1, 0 826.25 000 ml @ 75 mls/hr IV . [id number] [facility] Rx#:[id number] Output: Drainage 75 Left Sacrum 75 Other: # Voids 2 # Bowel Movements 0 Active Medications: Current Medications Acetaminophen (Tylenol) 650 mg PO Q6H PRN PRN Reason: Pain or Fever >101 Stop: 12/23/16 22:05 Ascorbic Acid (Vitamin C) 500 mg PO DAILY [facility] Stop: 12/24/16 08:59 Last Admin: 10/28/16 09:49 Dose: 500 mg Aspirin (Aspirin Chewable) 81 mg PO DAILY [facility] Stop: 12/24/16 08:59 Last Admin: 10/28/16 09:49 Dose: 81 mg Bisacodyl (Dulcolax 5 Mg Ec Tab) 10 mg PO BID [facility] Stop: 12/24/16 08:59 Last Admin: 10/28/16 09:48 Dose: 10 mg Heparin Sodium (Porcine) (Heparin) 5,000 units SUBQ Q12HR [facility] Stop: 12/24/16 20:59 Last Admin: 10/28/16 09:49 Dose: 5,000 units Hydralazine HCl (Apresoline) 25 mg PO BID [facility] Stop: 12/24/16 16:59 Last Admin: 10/28/16 09:48 Dose: 25 mg Piperacillin Sod/Tazobactam (Sod 3.375 gm/ Sodium Chloride) 50 mls @ 100 mls/ hr IV Q6HR [facility] Stop: 12/24/16 00:00 Last Admin: 10/28/16 13:15 Dose: 100 mls/hr Sodium Chloride (Nacl 0.9%) 1,000 mls @ 75 mls/hr IV .[id number] [facility] Stop: 12/24/16 14:14 Last Admin: 10/28/16 11:58 Dose: 75 mls/hr Insulin Aspart (Novolog Insulin Sliding Scale) 0 units SUBQ ACHS [facility] PRN Reason: Protocol Stop: 12/27/16 07:29 Last Admin: 10/28/16 13:07 Dose: Not Given Insulin Detemir (Levemir Insulin) 24 units SUBQ HS [facility] Stop: 12/24/16 20:59 Last Admin: 10/27/16 21:30 Dose: 24 units Lactobacillus Rhamnosus (Culturelle) 1 each PO DAILY [facility] Stop: 12/24/16 14:59 Last Admin: 10/28/16 09:48 Dose: 1 each Lorazepam (Ativan) 1 mg PO HS PRN; Protocol PRN Reason: Anxiety Stop: 12/23/16 22:05 Miscellaneous (Vte Chemical Prophylaxis Screen/ Admission) 1 ea MC PRN PRN PRN Reason: PROTOCOL Stop: 12/24/16 11:45 Miscellaneous (Probiotic Screen) 1 ea PRN PRN PRN Reason: PROTOCOL Stop: 12/24/16 14:28 Mupirocin (Bactroban Oint) 1 appl NS BID [facility] Stop: 10/31/16 09:01 Last Admin: 10/28/16 10:07 Dose: 1 appl Sodium Phosphate (Fleet Enema) 135 ml RC PRN PRN PRN Reason: Constipation Stop: 12/23/16 22:09 General: Alert, No acute distress, Other (Confused, non verbal) HEENT: Atraumatic, Mucous membr. moist/pink Neck: Supple, +2 carotid pulse wo bruit Cardiovascular: Regular rate, Normal S1, Normal S2 Lungs: Clear to auscultation Abdomen: Bowel sounds, Soft Extremities: Other (No edema), no Edema Neurological: Sensation intact, Other (Non ambulatory) Skin: Other (There are 2 sacral ulcer cover.), no Rash Psych/Mental Status: Mood NL, Other (Confused, not oriented) - Procedures Procedures: Procedures Procedure Code Date CHAGO MUSC/FASCIA 20 SQ CM/< 88435 10/24/16 EXCISION OF LEFT HIP MUSCLE, OPEN APPROACH [id number] 10/24/16 Assessment/Plan - Problem List Patient Problems: All Active Problems SACRAL AND BILATERAL BUTTOCK SKIN ULCERS (Acute) - Assessment Assessment: 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 Decubitus Gluteal Ulcer Severe Malnutrition Type 2 DM Vascular Dementia Ess Htn S/P CVA - Plan Plan: Lab - Result Diagrams 10/26/16 06:05 10/26/16 06:05 Current Medications Acetaminophen (Tylenol) 650 mg PO Q6H PRN PRN Reason: Pain or Fever >101 Stop: 12/23/16 22:05 Ascorbic Acid (Vitamin C) 500 mg PO DAILY [facility] Stop: 12/24/16 08:59 Last Admin: 10/26/16 09:13 Dose: 500 mg Aspirin (Aspirin Chewable) 81 mg PO DAILY [facility] Stop: 12/24/16 08:59 Last Admin: 10/26/16 09:13 Dose: 81 mg Bisacodyl (Dulcolax 5 Mg Ec Tab) 10 mg PO BID [facility] Stop: 12/24/16 08:59 Last Admin: 10/26/16 09:14 Dose: 10 mg Heparin Sodium (Porcine) (Heparin) 5,000 units SUBQ Q12HR [facility] Stop: 12/24/16 20:59 Last Admin: 10/26/16 09:15 Dose: 5,000 units Hydralazine HCl (Apresoline) 25 mg PO BID [facility] Stop: 12/24/16 16:59 Last Admin: 10/26/16 09:13 Dose: 25 mg Piperacillin Sod/Tazobactam (Sod 3.375 gm/ Sodium Chloride) 50 mls @ 100 mls/ hr IV Q6HR [facility] Stop: 12/24/16 00:00 Last Admin: 10/26/16 12:18 Dose: 100 mls/hr Sodium Chloride (Nacl 0.9%) 1,000 mls @ 75 mls/hr IV .[id number] [facility] Stop: 12/24/16 14:14 Last Infusion: 10/26/16 12:48 Dose: 75 mls/hr Insulin Detemir (Levemir Insulin) 24 units SUBQ HS [facility] Stop: 12/24/16 20:59 Lactobacillus Rhamnosus (Culturelle) 1 each PO DAILY [facility] Stop: 12/24/16 14:59 Last Admin: 10/26/16 09:13 Dose: 1 each Lorazepam (Ativan) 1 mg PO HS PRN; Protocol PRN Reason: Anxiety Stop: 12/23/16 22:05 Miscellaneous (Vte Chemical Prophylaxis Screen/ Admission) 1 ea MC PRN PRN PRN Reason: PROTOCOL Stop: 12/24/16 11:45 Miscellaneous (Probiotic Screen) 1 ea MC PRN PRN PRN Reason: PROTOCOL Stop: 12/24/16 14:28 Mupirocin (Bactroban Oint) 1 appl NS BID [facility] Stop: 10/31/16 09:01 Sodium Phosphate (Fleet Enema) 135 ml RC PRN PRN PRN Reason: Constipation Stop: 12/23/16 22:09 Na up to 136 Kidney fnc imporved to 1.5 continue NS f/u electrolytes Lab - Result Diagrams 10/28/16 06:40 10/28/16 06:40 Nutritional Asmnt/Malnutr-PDOC - Dietary Evaluation Malnutrition Findings (Please click <Entered> for more info): Nutritional Asmnt/Malnutrition Start: 10/25/16 15: 29 Text: Status: Complete Freq: Document 10/25/16 15:29 GSUN (Rec: 10/25/16 15:45 GSUN [id number]) Nutritional Asmnt/Malnutrition Patient General Information Nutritional Screening Consult Diagnosis Cellulitis, sacral decubiti ulcer stage 3, AKF, DM Pertinent Medical Hx/Surgical Hx CAD, CHF, CVA, dementia, schizophrenia, osteoarthritis, weakness, cellulitis, acute renal failure, DM, hyponatremia, decubiti ulcer stage 3 Subjective Information 81 year old female from SNF. RD consult for multiple ulcers . Pt undergone decridement of stage 3 sacral decubitus ulcer this AM. Pt was soundly asleep during visit. Pt appeared small frame, no muscle fat wasting noted, age appropriate. PO intake 75% of dinner yesterday, meeting nutritional needs. CBW 110.7lb via bedscale. Current Diet Order/ Nutrition Support Rajiv, [id number] Pertinent Medications Vitamin C, Dulcolax, Levemir, Culturelle, Fleet Enema Pertinent Labs 10/24: A1c 8.8H, BUN 27H, creatinine 2H, glucose 312H, potassium 5.1 WNL, calcium 10. 7H Nutritional Hx/Data Height 1.52 m Height (Calculated Centimeters) 152.4 Current Weight (lbs) 50.213 kg Weight (Calculated Kilograms) 50.2 Weight (Calculated Grams) 07008.7 [place] Body Weight 100 Weight Status Approriate GI Symptoms Usual diet at home __ [address] SNF: rajiv, [facility], [facility] Skin Integrity/Comment: Elliot 12. Sacral stage 3 ulcer, multiple ulcers perineal area. Current %PO Good (75-100%) Estimated Nutritional Goals BEE in Kcals: Using Current wt Calories/Kcals/Kg CBW 110.7lb/50.3kg Kcals Calculated 1258-1509kcal (25-30kcal/kg) Protein: Using Current wt Protein Calculated 60-70g (1.2-1.4g/kg, ulcer vs AKF) Fluid: ml Per MD Nutritional Problem 3. Problem Problem Impaired nutrient utilization related to Etiology acute kidney failure aeb Signs/Symptoms: BUN 27H, creatinine 2H 2. Problem Problem Altered nutrition related laboratory values related to Etiology DM aeb Signs/Symptoms: A1c 8.8, glucose 312 on adm 1. Problem Problem Increased protein needs related to Etiology skin integrity aeb Signs/Symptoms: stage 3 sacral decubiti ulcer Intervention/Recommendation Comments 1. Recommend [id number] low sodium to better promote glycemic control and aid in renal function. Expected Outcomes/Goals Expected Outcomes/Goals 1. PO intake to meet at least 75% of estimated nutritional needs.
== END 2016-10-28 18:55 | disposition home or self-care (01) | DRG 579 ==
LOC: ER 15:13 → MSI 16:35
PROVIDERS: ADMIT General Practice; ATTEND General Practice
PROC: 0KBP0ZZ Excision of Left Hip Muscle, Open Approach (ICD-10-PCS; principal; 2016-10-24)
DX: L89.153 Pressure ulcer of sacral region, stage 3 (principal); E43 Unspecified severe protein-calorie malnutrition; N17.9 Acute kidney failure, unspecified; E22.2 Syndrome of inappropriate secretion of antidiuretic hormone; I50.9 Heart failure, unspecified; E86.0 Dehydration; F01.50 Vascular dementia, unspecified severity, without behavioral disturbance, psychotic disturbance, mood disturbance, and anxiety; I13.0 Hypertensive heart and chronic kidney disease with heart failure and stage 1 through stage 4 chronic kidney disease, or unspecified chronic kidney disease; E11.21 Type 2 diabetes mellitus with diabetic nephropathy; L03.818 Cellulitis of other sites; E11.22 Type 2 diabetes mellitus with diabetic chronic kidney disease; D64.9 Anemia, unspecified; I25.10 Atherosclerotic heart disease of native coronary artery without angina pectoris; M19.90 Unspecified osteoarthritis, unspecified site; F20.9 Schizophrenia, unspecified; N18.9 Chronic kidney disease, unspecified; B95.62 Methicillin resistant Staphylococcus aureus infection as the cause of diseases classified elsewhere; L98.419 Non-pressure chronic ulcer of buttock with unspecified severity; Z86.73 Personal history of transient ischemic attack (TIA), and cerebral infarction without residual deficits; Z82.49 Family history of ischemic heart disease and other diseases of the circulatory system; Z83.3 Family history of diabetes mellitus; Z79.4 Long term (current) use of insulin; Z79.82 Long term (current) use of aspirin; Z74.01 Bed confinement status
CPT/HCPCS: 36415-UA; 71010-TC; 76770-TC; 80048-TC; 80053-TC; 80061-TC; 81015-TC; 82043-90; 82088-90; 82533-90; 82570-TC; 82948-90; 83036-90; 83735-TC; 83930-90; 84100-TC; 84300-TC; 84443-TC; 84484-TC; 84550-TC; 85007-TC; 85025-TC; 85027-TC; 85610-TC; 85730-TC; 86592-TC; 87070-90; 88304-TC; 90799; 93005; J1644; J1815; J2001; J2250; J2543; J2704; J7030; V2790; Z7610

== ENCOUNTER 2016-12-01 18:09 | Inpatient (IN) | payer MEDICARE, MEDICAID ==
--- NOTE | 2016-12-01 18:56 | ED Physician Chart ---
ED Chief Complaint/HPI - Patient Information Date Seen:: 12/01/16 Time Seen:: 18:40 Chief Complaint:: anorexia History of Present Illness:: Patient anorexic for 2 weeks. She is a resident of a [place] [facility] facility. Patient was sent here to be admitted to get a G-tube. Allergies:: Allergies Allergy/AdvReac Type Severity Reaction Status Date / Time No Known Allergies Allergy Verified 06/30/16 18:00 Vitals:: Vital Signs - 8 hr 12/01/16 18:24 Temp 98.4 F HR 103 RR 19 BP 95/46 O2 Sat % 97 Historian:: Patient Review:: Nurse's Note Reviewed ED Review of Systems - Review of Systems General/Constitutional: No fever, No chills Skin: Skin lesions Head: No headache Eyes: No loss of vision ENT: No earache Neck: No neck pain Cardio Vascular: No chest pain, No palpitations Pulmonary: No SOB GI: No nausea, No vomiting, No diarrhea G/U: No dysuria Musculoskeletal: No bone or joint pain Endocrine: No polyuria, No polydipsia Psychiatric: No prior psych history, No depression, No anxiety Hematopoietic: No bruising Allergic/Immuno: No urticaria Neurological: No syncope, No focal symptoms ED Past Medical History - Past Medical History Past Medical History: HTN, DM, Dementia Family History: None Social History: Non Smoker, No Alcohol Surgical History: None Psychiatricy History: None Medication: Reviewed Family Medical History - Family Member Mother History Unknown: Yes Ethnicity: Living Status: Hx Family Cancer: No Hx Family Coronary Artery Disease: No Hx Family Congestive Heart Failure: No Hx Family Hypertension: No Hx Family Stroke: No Hx Family Diabetes: Yes Hx Family Seizures: No Hx Family Dementia: No Hx Family AIDS: No Hx Family HIV: No Hx Family COPD: No Hx Family Hepatitis: No Hx Family Psychiatric Problems: No Hx Family Tuberculosis: No ED Physical Exam - Physical Examination General/Constitutional: No distress Other Gen/Cons comments:: Chronically ill appearing; contractured; non-verbal Head: Atraumatic Eyes: Lids, conjuctiva normal Other Skin comments:: stage 3 or 4 decubitus left buttocks. ENMT: External ears, nose nl Neck: No nuchal rigidity Respiratory: Nl effort/Exclusion, Clear to Auscultation Cardio Vascular: RRR GI: No tenderness/rebounding/guarding : No CVA tenderness Extremities: Normal digits & nails Neuro/Psych: No focal deficits Misc: No paraspinal tenderness ED Labs/Radiology/EKG Results - Lab Results Comments:: Laboratory Results - last 24 hr 12/01/16 12/01/16 12/01/16 18:25 18:25 18:25 WBC 9.2 D Corrected WBC (auto) 8.8 RBC 3.78 L Hgb 10.6 L Hct 33.3 L D MCV 88.1 MCH 28.0 MCHC Differential 31.8 RDW 21.1 H Plt Count 105 L D MPV 14.1 Band Neutrophils % 6 Neutrophils (Manual) 61 Lymphocytes 29 Monocytes 2 Eosinophils 1 Nucleated RBCs 5.0 H Atypical Lymphocytes 1 Platelet Estimate DECREASED PLATELETS Platelet Morphology NORMAL Anisocytosis 1+ RBC Morph Micro Appear ABNORMAL PT 10.3 INR 0.99 PTT (Actin FS) 19.6 L Sodium 175 H* Potassium 5.1 Chloride 146 H* Carbon Dioxide 14.5 L Anion Gap 19.6 H BUN 173 H* Creatinine 5.9 H* Est GFR ( Amer) TNP Est GFR (Non-Af Amer) TNP BUN/Creatinine Ratio 29.3 Glucose 205 H Hemoglobin A1c % Calcium 11.4 H 12/01/16 18:25 WBC Corrected WBC (auto) RBC Hgb Hct MCV MCH MCHC Differential RDW Plt Count MPV Band Neutrophils % Neutrophils (Manual) Lymphocytes Monocytes Eosinophils Nucleated RBCs Atypical Lymphocytes Platelet Estimate Platelet Morphology Anisocytosis RBC Morph Micro Appear PT INR PTT (Actin FS) Sodium Potassium Chloride Carbon Dioxide Anion Gap BUN Creatinine Est GFR ( Amer) Est GFR (Non-Af Amer) BUN/Creatinine Ratio Glucose Hemoglobin A1c % 9.0 H Calcium - EKG Interpretations Rate & Rhythm: NSR with a rate of 92 Adrian: normal Comments:: T wave changes. ED Septic Shock - <6hrs of presentation: Vital Signs: Vital Signs - 8 hr 12/01/16 18:24 Temp 98.4 F HR 103 RR 19 BP 95/46 O2 Sat % 97 ED Reassessment (Disposition) - Reassessment Reassessment Condition:: Unchanged - Diagnosis Diagnosis:: Hypernatremic dehydration; acidosis; anemia; renal failure ED Discharge Plan - Patient Disposition Instructions: Joint Sprain Accepting Physician: Hipolito Moncada [Active] -
[2016-12-01 19:05] LABS: HEMOGLOBIN 10.6 gm/dL (12-16); MEAN CELL VOLUME 88.1 fl (81-100); MEAN CORPUSCULAR HGB CONC 31.8 pg (28.0-36.0); MEAN PLATELET VOLUME 14.1 fl; RED BLOOD COUNT 3.78 Mil/cmm (3.80-5.20); RED CELL DISTRIBUTION WIDTH 21.1 % (11.5-20.0)
[2016-12-01 19:19] LABS: INR 0.99 (0.5-1.4); PROTHROMBIN TIME (TEST) 10.3 SECONDS (9.5-11.5)
[2016-12-01 19:21] LABS: ANION GAP 19.6 (7.0-16.0); CALCIUM SERUM 11.4 mg/dL (8.6-10.3); CARBON DIOXIDE 14.5 mEq/L (21.0-31.0); GLUCOSE 205 mg/dL (70-105); HEMATOCRIT 33.3 % (41.0-60); PLATELET COUNT 105 Th/cmm (150-400); POTASSIUM SERUM 5.1 mEq/L (3.5-5.1); WHITE BLOOD COUNT 9.2 Th/cmm (4.8-10.8)
[2016-12-01 19:22] LABS: MANUAL DIFF REQUIRED? YES
[2016-12-01 19:34] LABS: ATYPICAL LYMPH 1 %; BAND NEUTROPHILE 6 % (0-10); CORRECTED WBC 8.8 Th/cmm (4.8-10.8); EOSINOPHIL 1 % (0-5); LYMPHOCYTE 29 % (20-50); MONOCYTE 2 % (2-10); NEUTROPHILS 61 % (40-80); TOTAL CELLS COUNTED 100
[2016-12-01 19:35] LABS: ANISOCYTOSIS 1+; PLATELET ESTIMATE DECREASED PLATELETS (NORMAL); PLATELET MORPHOLOGY NORMAL (NORMAL)
[2016-12-01 19:37] LABS: BUN - UREA NITROGEN 173 mg/dL (7-25); CHLORIDE 146 mEq/L (98-107); CREATININE - SERUM 5.9 mg/dL (0.6-1.2); SODIUM SERUM 175 mEq/L (136-145)
[2016-12-01] MEDS ORDERED: Sodium Chloride 0.9% 1,000 ML IV ONE (19:52)
[2016-12-02] MEDS ORDERED: D5-0.9%NS 1,000 ML IV ONE (01:24)
[2016-12-02] MEDS ORDERED: D5-0.45NS 1,000 ML IV ONE (02:35)
[2016-12-02 03:28] VITALS: BP 124/57
[2016-12-02] MEDS ORDERED: D5-0.45NS 1,000 ML IV SCH ×2 (04:11→04:15)
[2016-12-02 05:40] LABS: % BASOPHILS 0.1 % (0.0-2.0); % EOSINOPHILS 0.7 % (0.0-5.0); % LYMPHOCYTES 18.4 % (20.0-50.0); % MONOCYTES 5.3 % (2.0-10.0); % NEUTROPHILS 75.5 % (40.0-80.0); EOSINOPHILE ABSOLUTE 0.1 Th/cmm (0.1-0.4); HEMATOCRIT 30.3 % (41.0-60); HEMOGLOBIN 9.7 gm/dL (12-16); LYMPHOCYTE ABSOLUTE 2.1 Th/cmm (1.5-3.0); MEAN CELL VOLUME 88.4 fl (81-100); MEAN CORPUSCULAR HEMOGLOBIN 28.2 pg (27.0-31.0); MEAN CORPUSCULAR HGB CONC 31.9 pg (28.0-36.0); MEAN PLATELET VOLUME 14.9 fl; MONOCYTE ABSOLUTE 0.6 Th/cmm (0.3-1.0); NEUTROPHILE ABSOLUTE 8.4 Th/cmm (1.8-8.0); PLATELET COUNT 115 Th/cmm (150-400); RED BLOOD COUNT 3.43 Mil/cmm (3.80-5.20); RED CELL DISTRIBUTION WIDTH 20.9 % (11.5-20.0); WHITE BLOOD COUNT 11.2 Th/cmm (4.8-10.8)
[2016-12-02 06:02] LABS: ALB/GLOB RATIO 0.9 (1.0-1.8); ALBUMIN 2.9 gm/dL (3.7-5.3); ALKALINE PHOSPHATASE 66 U/L (34-104); ANION GAP 19.7 (7.0-16.0); BILIRUBIN,TOTAL 0.5 mg/dL (0.3-1.0); CALCIUM SERUM 10.8 mg/dL (8.6-10.3); CARBON DIOXIDE 14.6 mEq/L (21.0-31.0); GLUCOSE 238 mg/dL (70-105); POTASSIUM SERUM 5.3 mEq/L (3.5-5.1); SGOT 9 U/L (13-39); SGPT/ALT 13 U/L (7-52); TOTAL PROTEIN,SERUM 6.1 gm/dL (6.0-8.3)
[2016-12-02] MEDS: INSULIN ASPART SLIDING SCALE 100 UNITS/ML UNIT SUBQ SCH ×4 (06:45→22:02)
[2016-12-02 06:56] LABS: BUN - UREA NITROGEN 169 mg/dL (7-25); CHLORIDE 144 mEq/L (98-107); SODIUM SERUM 173 mEq/L (136-145)
[2016-12-02 06:57] LABS: CREATININE - SERUM 5.8 mg/dL (0.6-1.2)
--- NOTE | 2016-12-02 07:12 | Diagnostic Imaging Report ---
Exam: Portable examination of chest HISTORY: Dehydration Findings: Portable summation of chest at 2054 reviewed. The study compared to prior examination over 06/30/2016. The study demonstrates right-sided pneumonia. Mediastinal structures midline the heart is not enlarged bony thorax is intact. The costophrenic angles are clear. IMPRESSION: right-sided pneumonia follow-up exam is recommended.
[2016-12-02] MEDS ORDERED: ceFAZolin 1 GM in Sodium Chloride 0.9% 50 ML IV ONE (11:40)
--- NOTE | 2016-12-02 11:47 | History and Physical ---
History of Present Illness - HPI Chief Complaint: Not eating HPI: Patient was transfered from a SNF for PEG placement, in ER was found that patient had hypernatremia, and AKF. She was hospitalized for treatment. 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: CVA, Dementia GI: Report: Other (Not eating) Psych: Report: Psychosis Musculoskeletal: Report: Muscle Atrophy, Other (Non ambulatory) Rheumatologic: Report: No pertinent Hx Infectious Disease: Report: No Pertinent Hx Renal/: Report: Other (AKF) Endocrine: Report: Diabetes Dermatology: Report: Other (Decubitus ulcer stage IV) Family Medical History - Family Member Mother History Unknown: Yes Ethnicity: Living Status: Hx Family Cancer: No Hx Family Coronary Artery Disease: No Hx Family Congestive Heart Failure: No Hx Family Hypertension: No Hx Family Stroke: No Hx Family Diabetes: Yes Hx Family Seizures: No Hx Family Dementia: No Hx Family AIDS: No Hx Family HIV: No Hx Family COPD: No Hx Family Hepatitis: No Hx Family Psychiatric Problems: No Hx Family Tuberculosis: No Social History Smoke: No Alcohol: None Drugs: None Lives: [facility] Domestic Violence: Negative - Medications Home Medications: Home Medication Medication Instructions Recorded Type Acetaminophen [Tylenol] 650 mg PO Q6H PRN tab 07/05/16 Rx Captopril [Capoten 25 mg Tab] 25 mg PO BID tab 07/05/16 Rx Sodium Chloride Tab [NaCL Tab] 1 gm PO BID tab 07/05/16 Rx cloNIDine HCl [Catapres] 0.1 mg PO Q8HR PRN tab 07/05/16 Rx Aspirin [Aspirin Chewable] 81 mg PO DAILY 10/24/16 History Insulin Aspart Sliding Scale 0 units SUBQ ACHS 10/24/16 History [NovoLOG INSULIN SLIDING SCALE] Insulin Glargine, Recombinan 35 units SUBQ HS 10/24/16 History [Lantus] Lorazepam [Ativan] 1 mg PO HS PRN 10/24/16 History Memory Builder 3 tab PO BID 10/24/16 History Multivitamin with Minerals 1 tab PO DAILY 10/24/16 History [Multivitamins with Minerals] Bisacodyl [Dulcolax 5 Mg Ec Tab] 10 mg PO BID 12/01/16 History Hydrocodone/APAP 5mg/325mg [[place] 1 tab PO X1 12/01/16 History 5mg/325mg] Sennosides A and B [Senna] 8.6 mg PO DAILY 12/01/16 History - Allergies Allergies/Adverse Reactions: Allergies Allergy/AdvReac Type Severity Reaction Status Date / Time No Known Allergies Allergy Verified 06/30/16 18:00 Review of Systems - Review of Systems Constitutional: Report: Weakness Eyes: Report: No Significant ENT: Report: No Significant Respiratory: Report: No Significant Cardiovascular: Report: No Significant Gastrointestinal: Report: Other (Not eating) Genitourinary: Report: No Significant Musculoskeletal: Report: Other (Non ambulatory) Skin: Report: Other (Decubitus ulcer stage IV) Neurological: Report: Other (Non verbal, not folowing commands) Physical Exam - Physical Exam HEENT: Report: Ears Nose Throat within normal limits Neck: Report: Within normal limits Cardiovascular Systems: Report: Regular, Rate and Rhythm Respiratory: Report: Breath Sounds are within normal limits Abdomen: Report: Non-tender to palpation Back: Report: Inspection of back is within normal limits. Extremities: Report: Extremities are contracted Skin: Report: A wound was noted (Sacral decubitus ulcer stage IV) Neuro/Psych: Report: Disoriented to name time or place (Non ambulatory) - Lab Results All Lab Results last 24 hours: Laboratory Results - last 24 hr 12/02/16 12/02/16 12/02/16 05:05 05:05 05:05 WBC 11.2 H D RBC 3.43 L Hgb 9.7 L Hct 30.3 L MCV 88.4 MCH 28.2 MCHC Differential 31.9 RDW 20.9 H Plt Count 115 L MPV 14.9 Neutrophils % 75.5 Lymphocytes % 18.4 L Monocytes % 5.3 Eosinophils % 0.7 Basophils % 0.1 Sodium 173 H* Potassium 5.3 H Chloride 144 H* Carbon Dioxide 14.6 L Anion Gap 19.7 H BUN 169 H* Creatinine 5.8 H* Est GFR ( Amer) TNP Est GFR (Non-Af Amer) TNP BUN/Creatinine Ratio 29.1 Glucose 238 H POC Glucose Calcium 10.8 H Total Bilirubin 0.5 AST 9 L ALT 13 Alkaline Phosphatase 66 Total Protein 6.1 Albumin 2.9 L Globulin 3.2 Albumin/Globulin Ratio 0.9 L TSH 1.83 12/02/16 05:59 WBC RBC Hgb Hct MCV MCH MCHC Differential RDW Plt Count MPV Neutrophils % Lymphocytes % Monocytes % Eosinophils % Basophils % Sodium Potassium Chloride Carbon Dioxide Anion Gap BUN Creatinine Est GFR ( Amer) Est GFR (Non-Af Amer) BUN/Creatinine Ratio Glucose POC Glucose 192 H Calcium Total Bilirubin AST ALT Alkaline Phosphatase Total Protein Albumin Globulin Albumin/Globulin Ratio TSH - Assessment Assessment: Current Active Problems Problem Status Onset POOR ORAL INTAKE AND SWALLOWING Acute Patient is awake, non verbal, not following verbal commands. Dx: Hypernatremia , AKF, Chronic anemia, Sacral decubitus ulcer stage IV, HTN, DM, Dementia - Plan Plan: Patient in NPO, Hold meds awaitting G-tube placement. Consult with Nepro, GI, and surgery requested. Possible HD today.
[2016-12-02] MEDS ORDERED: VTE Chemical Prophylaxis Screen/Admission MC PRN (13:39)
[2016-12-02] MEDS: D5-0.45NS 1,000 ML IV SCH (15:35)
[2016-12-02 15:42] LABS: URINE MICROSCOPIC INDICATED? YES; URINE SOURCE FOLEY PORT
[2016-12-02 15:44] LABS: URINE BILIRUBIN NEGATIVE (NEGATIVE); URINE BLOOD MODERATE (NEGATIVE); URINE GLUCOSE (UA) 500 mg/dL (NEGATIVE); URINE KETONE NEGATIVE (NEGATIVE); URINE LEUKOCYTE ESTERASE MODERATE (NEGATIVE); URINE NITRATE POSITIVE (NEGATIVE); URINE PROTEIN 100 mg/dL (NEGATIVE); URINE UROBILINOGEN 0.2 E.U./dL (0.2 - 1.0)
[2016-12-02 15:51] LABS: URINE CLARITY HAZY (CLEAR); URINE COLOR YELLOW
[2016-12-02 16:01] LABS: URINE BACTERIA MANY /hpf (NONE SEEN); URINE EPITHELIAL CELLS FEW /lpf (FEW)
[2016-12-02 16:09] LABS: URINE TRIPLE PHOSPHATE CRYSTAL MODERATE /hpf (FEW)
[2016-12-02 16:11] LABS: URINE WBC 50-100 /hpf (0-5)
[2016-12-03] MEDS: D5-0.45NS 1,000 ML IV SCH ×2 (01:09→13:20)
[2016-12-03 05:53] LABS: WHITE BLOOD COUNT 9.1 Th/cmm (4.8-10.8)
[2016-12-03 06:06] LABS: HEMATOCRIT 25.8 % (41.0-60); HEMOGLOBIN 8.2 gm/dL (12-16); MEAN CELL VOLUME 87.6 fl (81-100); MEAN CORPUSCULAR HEMOGLOBIN 27.9 pg (27.0-31.0); MEAN CORPUSCULAR HGB CONC 31.8 pg (28.0-36.0); MEAN PLATELET VOLUME 14.5 fl; RED BLOOD COUNT 2.94 Mil/cmm (3.80-5.20); RED CELL DISTRIBUTION WIDTH 21.4 % (11.5-20.0)
[2016-12-03 06:10] LABS: ALB/GLOB RATIO 0.9 (1.0-1.8); ALBUMIN 2.6 gm/dL (3.7-5.3); ALKALINE PHOSPHATASE 60 U/L (34-104); BILIRUBIN,TOTAL 0.4 mg/dL (0.3-1.0); CALCIUM SERUM 10.4 mg/dL (8.6-10.3); CARBON DIOXIDE 16.5 mEq/L (21.0-31.0); CHLORIDE 144 mEq/L (98-107); GLUCOSE 330 mg/dL (70-105); MAGNESIUM 2.7 mg/dL (1.9-2.7); POTASSIUM SERUM 4.5 mEq/L (3.5-5.1); SGOT 8 U/L (13-39); SGPT/ALT 11 U/L (7-52); TOTAL PROTEIN,SERUM 5.4 gm/dL (6.0-8.3); URIC ACID 11.6 mg/dL (2.3-6.6)
[2016-12-03 06:12] LABS: PLATELET COUNT 91 Th/cmm (150-400)
[2016-12-03 06:15] LABS: MANUAL DIFF REQUIRED? YES
[2016-12-03 06:16] LABS: INR 1.08 (0.5-1.4); PROTHROMBIN TIME (TEST) 11.2 SECONDS (9.5-11.5)
[2016-12-03 06:23] LABS: BUN - UREA NITROGEN 150 mg/dL (7-25); SODIUM SERUM 171 mEq/L (136-145)
[2016-12-03 06:24] LABS: CREATININE - SERUM 5.4 mg/dL (0.6-1.2)
[2016-12-03] MEDS: INSULIN ASPART SLIDING SCALE 100 UNITS/ML UNIT SUBQ SCH ×4 (06:41→21:34)
[2016-12-03 06:58] LABS: BAND NEUTROPHILE 15 % (0-10); LYMPHOCYTE 16 % (20-50); NEUTROPHILS 60 % (40-80); TOTAL CELLS COUNTED 100
[2016-12-03 06:59] LABS: ANISOCYTOSIS 2+; EOSINOPHIL 3 % (0-5); MONOCYTE 6 % (2-10); PLATELET ESTIMATE DECREASED PLATELETS (NORMAL)
[2016-12-03 08:09] LABS: EOSINOPHIL SMEAR SOURCE URINE; EOSINOPHILS SMEAR COUNT NONE SEEN (NONE SEEN)
[2016-12-03] MEDS ORDERED: Lidocaine 2% Gel 5 mL TP ONE (08:25)
--- NOTE | 2016-12-03 09:04 | Diagnostic Imaging Report ---
Portable chest x-ray HISTORY: Shortness of breath, nasogastric tube placement Compared with the prior exam of 12/01/2016, a nasogastric tube has been inserted. The tip extends below the diaphragm into the region of the stomach. There remains faint infiltrate within the right perihilar/right upper lobe area. Pneumonia cannot be excluded. IMPRESSION: 1. New nasogastric tube extending below the diaphragm the region of the stomach 2. Persistent hazy infiltrate within the right upper lobe/perihilar region. Pneumonia cannot be excluded.
--- NOTE | 2016-12-03 09:50 | General Progress Note ---
Subjective - Review of Systems Service Date: 12/04/16 Subjective: Patient non verbal. Objective - Results Result Diagrams: 12/03/16 05:35 12/03/16 05:35 Recent Labs: Laboratory Last Values WBC 9.1 Th/cmm (4.8-10.8) 12/03/16 05:35 Corrected WBC (auto) 8.8 Th/cmm (4.8-10.8) 12/01/16 18:25 RBC 2.94 Mil/cmm (3.80-5.20) L 12/03/16 05:35 Hgb 8.2 gm/dL (12-16) L 12/03/16 05:35 Hct 25.8 % (41.0-60) L D 12/03/16 05:35 MCV 87.6 fl (81-100) 12/03/16 05:35 MCH 27.9 pg (27.0-31.0) 12/03/16 05:35 MCHC Differential 31.8 pg (28.0-36.0) 12/03/16 05:35 RDW 21.4 % (11.5-20.0) H 12/03/16 05:35 Plt Count 91 Th/cmm (150-400) L D 12/03/16 05:35 MPV 14.5 fl 12/03/16 05:35 Neutrophils % 75.5 % (40.0-80.0) 12/02/16 05:05 Band Neutrophils % 15 % (0-10) H 12/03/16 05:35 Lymphocytes % 18.4 % (20.0-50.0) L 12/02/16 05:05 Monocytes % 5.3 % (2.0-10.0) 12/02/16 05:05 Eosinophils % 0.7 % (0.0-5.0) 12/02/16 05:05 Basophils % 0.1 % (0.0-2.0) 12/02/16 05:05 Neutrophils (Manual) 60 % (40-80) 12/03/16 05:35 Lymphocytes 16 % (20-50) L 12/03/16 05:35 Monocytes 6 % (2-10) 12/03/16 05:35 Eosinophils 3 % (0-5) 12/03/16 05:35 Nucleated RBCs 5.0 % (0-0) H 12/01/16 18:25 Atypical Lymphocytes 1 % 12/01/16 18:25 Platelet Estimate DECREASED PLATELETS (NORMAL) 12/03/16 05:35 Platelet Morphology NORMAL (NORMAL) 12/01/16 18:25 Anisocytosis 2+ 12/03/16 05:35 RBC Morph Micro Appear ABNORMAL (NORMAL) 12/01/16 18:25 Eos Smear Source URINE 12/03/16 06:30 Eos Smear Total Cells NONE SEEN (NONE SEEN) 12/03/16 06:30 PT 11.2 SECONDS (9.5-11.5) 12/03/16 05:35 INR 1.08 (0.5-1.4) 12/03/16 05:35 PTT (Actin FS) 19.6 SECONDS (26.0-38.0) L 12/01/16 18:25 Sodium 171 mEq/L (136-145) H* 12/03/16 05:35 Potassium 4.5 mEq/L (3.5-5.1) 12/03/16 05:35 Chloride 144 mEq/L (98-107) H* 12/03/16 05:35 Carbon Dioxide 16.5 mEq/L (21.0-31.0) L 12/03/16 05:35 Anion Gap 15.0 (7.0-16.0) 12/03/16 05:35 BUN 150 mg/dL (7-25) H* 12/03/16 05:35 Creatinine 5.4 mg/dL (0.6-1.2) H* 12/03/16 05:35 Est GFR ( Amer) TNP 12/03/16 05:35 Est GFR (Non-Af Amer) TNP 12/03/16 05:35 BUN/Creatinine Ratio 27.8 12/03/16 05:35 Glucose 330 mg/dL (70-105) H 12/03/16 05:35 POC Glucose 268 MG/DL (70 - 105) H 12/03/16 06:36 Hemoglobin A1c % 9.0 % (4.0-6.0) H 12/01/16 18:25 Whole Bld Lactic Acid 1.48 mmol/L (0.60-1.99) 12/01/16 20:58 Uric Acid 11.6 mg/dL (2.3-6.6) H 12/03/16 05:35 Calcium 10.4 mg/dL (8.6-10.3) H 12/03/16 05:35 Magnesium 2.7 mg/dL (1.9-2.7) 12/03/16 05:35 Total Bilirubin 0.4 mg/dL (0.3-1.0) 12/03/16 05:35 AST 8 U/L (13-39) L 12/03/16 05:35 ALT 11 U/L (7-52) 12/03/16 05:35 Alkaline Phosphatase 60 U/L (34-104) 12/03/16 05:35 Total Protein 5.4 gm/dL (6.0-8.3) L 12/03/16 05:35 Albumin 2.6 gm/dL (3.7-5.3) L 12/03/16 05:35 Globulin 2.8 gm/dL 12/03/16 05:35 Albumin/Globulin Ratio 0.9 (1.0-1.8) L 12/03/16 05:35 TSH 2.49 uIU/ml (0.34-5.60) 12/03/16 05:35 Urine Source SOTO PORT 12/02/16 14:56 Urine Color YELLOW 12/02/16 14:56 Urine Clarity HAZY (CLEAR) 12/02/16 14:56 Urine pH 8.0 (4.6 - 8.0) 12/02/16 14:56 Ur Specific [place] 1.015 (1.005-1.030) 12/02/16 14:56 Urine Protein 100 mg/dL (NEGATIVE) H 12/02/16 14:56 Urine Glucose (UA) 500 mg/dL (NEGATIVE) H 12/02/16 14:56 Urine Ketones NEGATIVE mg/dL (NEGATIVE) 12/02/16 14:56 Urine Blood MODERATE (NEGATIVE) H 12/02/16 14:56 Urine Nitrate POSITIVE (NEGATIVE) H 12/02/16 14:56 Urine Bilirubin NEGATIVE (NEGATIVE) 12/02/16 14:56 Urine Urobilinogen 0.2 E.U./dL (0.2 - 1.0) 12/02/16 14:56 Ur Leukocyte Esterase MODERATE (NEGATIVE) H 12/02/16 14:56 Urine RBC 5-10 /hpf (0-5) H 12/02/16 14:56 Urine WBC 50-100 /hpf (0-5) H 12/02/16 14:56 Ur Epithelial Cells FEW /lpf (FEW) 12/02/16 14:56 Triple Phos Crystals MODERATE /hpf (FEW) 12/02/16 14:56 Urine Bacteria MANY /hpf (NONE SEEN) 12/02/16 14:56 Ur Random Sodium 75 mmol/L 12/03/16 06:30 Urine Creatinine 49.0 mg/dl (28.0-217.0) 12/03/16 06:30 Blood Type O POSITIVE 12/02/16 05:05 Antibody Screen NEGATIVE 12/02/16 05:05 - Physical Exam Vitals and I&O: Vital Signs Temp 98.0 F 12/03/16 04:00 Pulse 59 12/03/16 04:00 Resp 17 12/03/16 04:00 BP 144/70 12/03/16 04:00 Pulse Ox 97 12/03/16 04:00 Intake & Output 12/02/16 12/03/16 12/03/16 18:59 06:59 18:59 Intake Total 1608 Output Total 550 Balance 1058 Weight (lbs) 44.906 kg Intake: Intake, IV Amount 1608 D5-0.45NS 1,000 ml @ 120 1608 mls/hr IV .Q8H20M [facility] Rx# :[id number] Oral 0 Output: Urine 550 Active Medications: Current Medications Acetaminophen (Tylenol) 650 mg PO Q6H PRN PRN Reason: Pain or Fever >101 Stop: 01/31/17 11:18 Bisacodyl (Dulcolax 5 Mg Ec Tab) 10 mg PO BID [facility] Stop: 01/31/17 16:59 Dextrose/Sodium Chloride (D5-0.45ns) 1,000 mls @ 120 mls/hr IV .Q8H20M [facility] Stop: 01/31/17 04:10 Last Infusion: 12/03/16 06:13 Dose: 120 mls/hr Insulin Aspart (Novolog Insulin Sliding Scale) 0 units SUBQ ACHS BRIELLE PRN Reason: Protocol Stop: 01/31/17 07:29 Last Admin: 12/03/16 06:41 Dose: Not Given Miscellaneous (Vte Chemical Prophylaxis Screen/ Admission) 1 ea MC PRN PRN PRN Reason: PROTOCOL Stop: 01/31/17 13:38 Pantoprazole Sodium (Protonix) 40 mg IVP DAILY BRIELLE Stop: 02/01/17 08:59 Sodium Bicarbonate (Sodium Bicarbonate) 650 mg PO BID BRIELLE PRN Reason: Protocol Stop: 01/31/17 16:59 Last Admin: 12/02/16 17:50 Dose: Not Given General: Other (Sedated, post surgery.) HEENT: Atraumatic Neck: Supple Cardiovascular: Regular rate Lungs: Clear to auscultation Abdomen: Bowel sounds, Soft, Other (PEG in place.) Extremities: Other (No edema) Neurological: Other (Non ambulatory) Skin: Other (Decubit sacral ulcer stage IV) Psych/Mental Status: Other (Sedated, post surgery) - Procedures Procedures: Procedures Procedure Code Date CHAGO MUSC/FASCIA 20 SQ CM/< 25906 10/24/16 EXCISION OF LEFT HIP MUSCLE, OPEN APPROACH [id number] 10/24/16 Assessment/Plan - Problem List Patient Problems: All Active Problems POOR ORAL INTAKE AND SWALLOWING (Acute) SACRAL AND BILATERAL BUTTOCK SKIN ULCERS (Acute) - Assessment Assessment: Current Active Problems Problem Status Onset POOR ORAL INTAKE AND SWALLOWING Acute Patient is sedated, post surgery, in no acute distress. Dx: Hypernatremia, AKF , Chronic anemia, Sacral decubitus ulcer stage IV, HTN, DM, Dementia - Plan Plan: PEH in place, fedding will be started iat 10:00 am. Hold meds awaitting G-tube placement. Already seen by Aaliyahro, and GI. NA, and Creatinine improving. Case discussed with family. Will continue to monitor. Nutritional Asmnt/Malnutr-PDOC - Dietary Evaluation Malnutrition Findings (Please click <Entered> for more info): Nutritional Asmnt/Malnutrition Start: 12/02/16 14: 44 Text: Status: Complete Freq: Document 12/02/16 14:44 GSUN (Rec: 12/02/16 15:19 [email or web address]) Nutritional Asmnt/Malnutrition Patient General Information Nutritional Screening Consult Diagnosis AKF, sacral decubitus ulcer stage IV, HTN, DM, dementia, chronic anemia Pertinent Medical Hx/Surgical Hx CAD, CVA, dementia, psychosis, muscle atrophy, AKF, DM, decubitus ulcer stage IV Subjective Information 81 year old female from SNF. RD consult for low Elliot and elevated blood glucose. Pt was awake, unable to provide nutrition hx. Family at bedside, spoke to family and RN Loren regarding nutrition plan of care, PEG placement consent obtained. Family has no other questions at this time. 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 Per nursing adm notes , 4-5lb wt loss in 2 weeks. Per family, unaware of UBW, aware of recent wt loss, stated pt stopped eating ~3-4 days ago. Loose skin, moderate to severe muslce fat wasting to chest and clavicles. Current Diet Order/ Nutrition Support NPO Pertinent Medications Dulcolax, D5-0.45ns, Novolog Pertinent Labs 12/01: A1c 9H 12/02: sodium 173H, potassium 5.3H, BUN 169H, creatinie 5.8H , glucose 238H, calcium 10.8H Nutritional Hx/Data Height 1.52 m Height (Calculated Centimeters) 152.4 Current Weight (lbs) 43.545 kg Weight (Calculated Kilograms) 43.5 Weight (Calculated Grams) 95581.9 [place] Body Weight 100 Recent Weight Change Yes Weight Status Approriate GI Symptoms Usual diet at home [facility]: pureed, [facility] Skin Integrity/Comment: Elliot 11. Sacral decubitus ulcer stage IV. Estimated Nutritional Goals Calories/Kcals/Kg IBW 100lb/45.5kg Kcals Calculated 1365-1593kcal (30-35kcal/kg) Protein Calculated 68-73g (1.4-1.6g/kg, ulcer vs renal, ?HD) Fluid: ml Per MD Nutritional Problem 3. Problem Problem Altered nutrition related laboratory values related to Etiology DM aeb Signs/Symptoms: A1c 9H, glucose 238H 2. Problem Problem Increased kcal and prot needs related to Etiology skin integrity, recent weight loss aeb Signs/Symptoms: Sacral decubitus ulcer stage IV, wt loss 4-5lb in 2 weeks per nursing adm notes, moderate to seevre muslce/fat wasting to chest and clavicles 1. Problem Problem Impaired nutrient utilization related to Etiology acute kidney injury aeb Signs/Symptoms: potassium 5.3H, BUN 169H, creatinie 5.8H, calcium 10.8H Intervention/Recommendation Comments 1. Discussed enteral nutrition with family. Family has no further questions at this time . 2. When medically feasible to initiate feeding, recommend Novasource Renal at 30ml/hr x 24hrs, providing 720ml total volume, 1440kcal, 65g protein. Initiate at 10ml/hr for first 24 hrs, monitor for refeeding syndrome and tolerance, increase by 5ml/hr q12hrs until goal. 3. Recommend 1 packet Arginaid daily via tube for wound healing. 4. Monitor weight closely. Hx 4-5lb wt loss in 2 weeks per nursing adm note. Expected Outcomes/Goals Expected Outcomes/Goals 1. Pt to meet at least 75% of estimated nutritinoal eneds on tube feeding with tolerance.
--- NOTE | 2016-12-03 09:50 | General Progress Note ---
Subjective - Review of Systems Service Date: 12/04/16 Subjective: Patient non verbal. Objective - Results Result Diagrams: 12/03/16 05:35 12/03/16 05:35 Recent Labs: Laboratory Last Values WBC 9.1 Th/cmm (4.8-10.8) 12/03/16 05:35 Corrected WBC (auto) 8.8 Th/cmm (4.8-10.8) 12/01/16 18:25 RBC 2.94 Mil/cmm (3.80-5.20) L 12/03/16 05:35 Hgb 8.2 gm/dL (12-16) L 12/03/16 05:35 Hct 25.8 % (41.0-60) L D 12/03/16 05:35 MCV 87.6 fl (81-100) 12/03/16 05:35 MCH 27.9 pg (27.0-31.0) 12/03/16 05:35 MCHC Differential 31.8 pg (28.0-36.0) 12/03/16 05:35 RDW 21.4 % (11.5-20.0) H 12/03/16 05:35 Plt Count 91 Th/cmm (150-400) L D 12/03/16 05:35 MPV 14.5 fl 12/03/16 05:35 Neutrophils % 75.5 % (40.0-80.0) 12/02/16 05:05 Band Neutrophils % 15 % (0-10) H 12/03/16 05:35 Lymphocytes % 18.4 % (20.0-50.0) L 12/02/16 05:05 Monocytes % 5.3 % (2.0-10.0) 12/02/16 05:05 Eosinophils % 0.7 % (0.0-5.0) 12/02/16 05:05 Basophils % 0.1 % (0.0-2.0) 12/02/16 05:05 Neutrophils (Manual) 60 % (40-80) 12/03/16 05:35 Lymphocytes 16 % (20-50) L 12/03/16 05:35 Monocytes 6 % (2-10) 12/03/16 05:35 Eosinophils 3 % (0-5) 12/03/16 05:35 Nucleated RBCs 5.0 % (0-0) H 12/01/16 18:25 Atypical Lymphocytes 1 % 12/01/16 18:25 Platelet Estimate DECREASED PLATELETS (NORMAL) 12/03/16 05:35 Platelet Morphology NORMAL (NORMAL) 12/01/16 18:25 Anisocytosis 2+ 12/03/16 05:35 RBC Morph Micro Appear ABNORMAL (NORMAL) 12/01/16 18:25 Eos Smear Source URINE 12/03/16 06:30 Eos Smear Total Cells NONE SEEN (NONE SEEN) 12/03/16 06:30 PT 11.2 SECONDS (9.5-11.5) 12/03/16 05:35 INR 1.08 (0.5-1.4) 12/03/16 05:35 PTT (Actin FS) 19.6 SECONDS (26.0-38.0) L 12/01/16 18:25 Sodium 171 mEq/L (136-145) H* 12/03/16 05:35 Potassium 4.5 mEq/L (3.5-5.1) 12/03/16 05:35 Chloride 144 mEq/L (98-107) H* 12/03/16 05:35 Carbon Dioxide 16.5 mEq/L (21.0-31.0) L 12/03/16 05:35 Anion Gap 15.0 (7.0-16.0) 12/03/16 05:35 BUN 150 mg/dL (7-25) H* 12/03/16 05:35 Creatinine 5.4 mg/dL (0.6-1.2) H* 12/03/16 05:35 Est GFR ( Amer) TNP 12/03/16 05:35 Est GFR (Non-Af Amer) TNP 12/03/16 05:35 BUN/Creatinine Ratio 27.8 12/03/16 05:35 Glucose 330 mg/dL (70-105) H 12/03/16 05:35 POC Glucose 268 MG/DL (70 - 105) H 12/03/16 06:36 Hemoglobin A1c % 9.0 % (4.0-6.0) H 12/01/16 18:25 Whole Bld Lactic Acid 1.48 mmol/L (0.60-1.99) 12/01/16 20:58 Uric Acid 11.6 mg/dL (2.3-6.6) H 12/03/16 05:35 Calcium 10.4 mg/dL (8.6-10.3) H 12/03/16 05:35 Magnesium 2.7 mg/dL (1.9-2.7) 12/03/16 05:35 Total Bilirubin 0.4 mg/dL (0.3-1.0) 12/03/16 05:35 AST 8 U/L (13-39) L 12/03/16 05:35 ALT 11 U/L (7-52) 12/03/16 05:35 Alkaline Phosphatase 60 U/L (34-104) 12/03/16 05:35 Total Protein 5.4 gm/dL (6.0-8.3) L 12/03/16 05:35 Albumin 2.6 gm/dL (3.7-5.3) L 12/03/16 05:35 Globulin 2.8 gm/dL 12/03/16 05:35 Albumin/Globulin Ratio 0.9 (1.0-1.8) L 12/03/16 05:35 TSH 2.49 uIU/ml (0.34-5.60) 12/03/16 05:35 Urine Source SOTO PORT 12/02/16 14:56 Urine Color YELLOW 12/02/16 14:56 Urine Clarity HAZY (CLEAR) 12/02/16 14:56 Urine pH 8.0 (4.6 - 8.0) 12/02/16 14:56 Ur Specific [place] 1.015 (1.005-1.030) 12/02/16 14:56 Urine Protein 100 mg/dL (NEGATIVE) H 12/02/16 14:56 Urine Glucose (UA) 500 mg/dL (NEGATIVE) H 12/02/16 14:56 Urine Ketones NEGATIVE mg/dL (NEGATIVE) 12/02/16 14:56 Urine Blood MODERATE (NEGATIVE) H 12/02/16 14:56 Urine Nitrate POSITIVE (NEGATIVE) H 12/02/16 14:56 Urine Bilirubin NEGATIVE (NEGATIVE) 12/02/16 14:56 Urine Urobilinogen 0.2 E.U./dL (0.2 - 1.0) 12/02/16 14:56 Ur Leukocyte Esterase MODERATE (NEGATIVE) H 12/02/16 14:56 Urine RBC 5-10 /hpf (0-5) H 12/02/16 14:56 Urine WBC 50-100 /hpf (0-5) H 12/02/16 14:56 Ur Epithelial Cells FEW /lpf (FEW) 12/02/16 14:56 Triple Phos Crystals MODERATE /hpf (FEW) 12/02/16 14:56 Urine Bacteria MANY /hpf (NONE SEEN) 12/02/16 14:56 Ur Random Sodium 75 mmol/L 12/03/16 06:30 Urine Creatinine 49.0 mg/dl (28.0-217.0) 12/03/16 06:30 Blood Type O POSITIVE 12/02/16 05:05 Antibody Screen NEGATIVE 12/02/16 05:05 - Physical Exam Vitals and I&O: Vital Signs Temp 98.0 F 12/03/16 04:00 Pulse 59 12/03/16 04:00 Resp 17 12/03/16 04:00 BP 144/70 12/03/16 04:00 Pulse Ox 97 12/03/16 04:00 Intake & Output 12/02/16 12/03/16 12/03/16 18:59 06:59 18:59 Intake Total 1608 Output Total 550 Balance 1058 Weight (lbs) 44.906 kg Intake: Intake, IV Amount 1608 D5-0.45NS 1,000 ml @ 120 1608 mls/hr IV .Q8H20M [facility] Rx# :[id number] Oral 0 Output: Urine 550 Active Medications: Current Medications Acetaminophen (Tylenol) 650 mg PO Q6H PRN PRN Reason: Pain or Fever >101 Stop: 01/31/17 11:18 Bisacodyl (Dulcolax 5 Mg Ec Tab) 10 mg PO BID [facility] Stop: 01/31/17 16:59 Dextrose/Sodium Chloride (D5-0.45ns) 1,000 mls @ 120 mls/hr IV .Q8H20M [facility] Stop: 01/31/17 04:10 Last Infusion: 12/03/16 06:13 Dose: 120 mls/hr Insulin Aspart (Novolog Insulin Sliding Scale) 0 units SUBQ ACHS BRIELLE PRN Reason: Protocol Stop: 01/31/17 07:29 Last Admin: 12/03/16 06:41 Dose: Not Given Miscellaneous (Vte Chemical Prophylaxis Screen/ Admission) 1 ea MC PRN PRN PRN Reason: PROTOCOL Stop: 01/31/17 13:38 Pantoprazole Sodium (Protonix) 40 mg IVP DAILY BRIELLE Stop: 02/01/17 08:59 Sodium Bicarbonate (Sodium Bicarbonate) 650 mg PO BID BRIELLE PRN Reason: Protocol Stop: 01/31/17 16:59 Last Admin: 12/02/16 17:50 Dose: Not Given General: Other (Sedated, post surgery.) HEENT: Atraumatic Neck: Supple Cardiovascular: Regular rate Lungs: Clear to auscultation Abdomen: Bowel sounds, Soft, Other (PEG in place.) Extremities: Other (No edema) Neurological: Other (Non ambulatory) Skin: Other (Decubit sacral ulcer stage IV) Psych/Mental Status: Other (Sedated, post surgery) - Procedures Procedures: Procedures Procedure Code Date CHAGO MUSC/FASCIA 20 SQ CM/< 28628 10/24/16 EXCISION OF LEFT HIP MUSCLE, OPEN APPROACH [id number] 10/24/16 Assessment/Plan - Problem List Patient Problems: All Active Problems POOR ORAL INTAKE AND SWALLOWING (Acute) SACRAL AND BILATERAL BUTTOCK SKIN ULCERS (Acute) - Assessment Assessment: Current Active Problems Problem Status Onset POOR ORAL INTAKE AND SWALLOWING Acute Patient is sedated, post surgery, in no acute distress. Dx: Hypernatremia, AKF , Chronic anemia, Sacral decubitus ulcer stage IV, HTN, DM, Dementia - Plan Plan: PEH in place, fedding will be started iat 10:00 am. Hold meds awaitting G-tube placement. Already seen by Aaliyahro, and GI. NA, and Creatinine improving. Case discussed with family. Will continue to monitor. Nutritional Asmnt/Malnutr-PDOC - Dietary Evaluation Malnutrition Findings (Please click <Entered> for more info): Nutritional Asmnt/Malnutrition Start: 12/02/16 14: 44 Text: Status: Complete Freq: Document 12/02/16 14:44 GSUN (Rec: 12/02/16 15:19 [email or web address]) Nutritional Asmnt/Malnutrition Patient General Information Nutritional Screening Consult Diagnosis AKF, sacral decubitus ulcer stage IV, HTN, DM, dementia, chronic anemia Pertinent Medical Hx/Surgical Hx CAD, CVA, dementia, psychosis, muscle atrophy, AKF, DM, decubitus ulcer stage IV Subjective Information 81 year old female from SNF. RD consult for low Elliot and elevated blood glucose. Pt was awake, unable to provide nutrition hx. Family at bedside, spoke to family and RN Loren regarding nutrition plan of care, PEG placement consent obtained. Family has no other questions at this time. 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 Per nursing adm notes , 4-5lb wt loss in 2 weeks. Per family, unaware of UBW, aware of recent wt loss, stated pt stopped eating ~3-4 days ago. Loose skin, moderate to severe muslce fat wasting to chest and clavicles. Current Diet Order/ Nutrition Support NPO Pertinent Medications Dulcolax, D5-0.45ns, Novolog Pertinent Labs 12/01: A1c 9H 12/02: sodium 173H, potassium 5.3H, BUN 169H, creatinie 5.8H , glucose 238H, calcium 10.8H Nutritional Hx/Data Height 1.52 m Height (Calculated Centimeters) 152.4 Current Weight (lbs) 43.545 kg Weight (Calculated Kilograms) 43.5 Weight (Calculated Grams) 82053.9 [place] Body Weight 100 Recent Weight Change Yes Weight Status Approriate GI Symptoms Usual diet at home [facility]ed[facility] Skin Integrity/Comment: Elliot 11. Sacral decubitus ulcer stage IV. Estimated Nutritional Goals Calories/Kcals/Kg IBW 100lb/45.5kg Kcals Calculated 1365-1593kcal (30-35kcal/kg) Protein Calculated 68-73g (1.4-1.6g/kg, ulcer vs renal, ?HD) Fluid: ml Per MD Nutritional Problem 3. Problem Problem Altered nutrition related laboratory values related to Etiology DM aeb Signs/Symptoms: A1c 9H, glucose 238H 2. Problem Problem Increased kcal and prot needs related to Etiology skin integrity, recent weight loss aeb Signs/Symptoms: Sacral decubitus ulcer stage IV, wt loss 4-5lb in 2 weeks per nursing adm notes, moderate to seevre muslce/fat wasting to chest and clavicles 1. Problem Problem Impaired nutrient utilization related to Etiology acute kidney injury aeb Signs/Symptoms: potassium 5.3H, BUN 169H, creatinie 5.8H, calcium 10.8H Intervention/Recommendation Comments 1. Discussed enteral nutrition with family. Family has no further questions at this time . 2. When medically feasible to initiate feeding, recommend Novasource Renal at 30ml/hr x 24hrs, providing 720ml total volume, 1440kcal, 65g protein. Initiate at 10ml/hr for first 24 hrs, monitor for refeeding syndrome and tolerance, increase by 5ml/hr q12hrs until goal. 3. Recommend 1 packet Arginaid daily via tube for wound healing. 4. Monitor weight closely. Hx 4-5lb wt loss in 2 weeks per nursing adm note. Expected Outcomes/Goals Expected Outcomes/Goals 1. Pt to meet at least 75% of estimated nutritinoal eneds on tube feeding with tolerance.
--- NOTE | 2016-12-03 09:50 | General Progress Note ---
Subjective - Review of Systems Service Date: 12/04/16 Subjective: Patient non verbal. Objective - Results Result Diagrams: 12/03/16 05:35 12/03/16 05:35 Recent Labs: Laboratory Last Values WBC 9.1 Th/cmm (4.8-10.8) 12/03/16 05:35 Corrected WBC (auto) 8.8 Th/cmm (4.8-10.8) 12/01/16 18:25 RBC 2.94 Mil/cmm (3.80-5.20) L 12/03/16 05:35 Hgb 8.2 gm/dL (12-16) L 12/03/16 05:35 Hct 25.8 % (41.0-60) L D 12/03/16 05:35 MCV 87.6 fl (81-100) 12/03/16 05:35 MCH 27.9 pg (27.0-31.0) 12/03/16 05:35 MCHC Differential 31.8 pg (28.0-36.0) 12/03/16 05:35 RDW 21.4 % (11.5-20.0) H 12/03/16 05:35 Plt Count 91 Th/cmm (150-400) L D 12/03/16 05:35 MPV 14.5 fl 12/03/16 05:35 Neutrophils % 75.5 % (40.0-80.0) 12/02/16 05:05 Band Neutrophils % 15 % (0-10) H 12/03/16 05:35 Lymphocytes % 18.4 % (20.0-50.0) L 12/02/16 05:05 Monocytes % 5.3 % (2.0-10.0) 12/02/16 05:05 Eosinophils % 0.7 % (0.0-5.0) 12/02/16 05:05 Basophils % 0.1 % (0.0-2.0) 12/02/16 05:05 Neutrophils (Manual) 60 % (40-80) 12/03/16 05:35 Lymphocytes 16 % (20-50) L 12/03/16 05:35 Monocytes 6 % (2-10) 12/03/16 05:35 Eosinophils 3 % (0-5) 12/03/16 05:35 Nucleated RBCs 5.0 % (0-0) H 12/01/16 18:25 Atypical Lymphocytes 1 % 12/01/16 18:25 Platelet Estimate DECREASED PLATELETS (NORMAL) 12/03/16 05:35 Platelet Morphology NORMAL (NORMAL) 12/01/16 18:25 Anisocytosis 2+ 12/03/16 05:35 RBC Morph Micro Appear ABNORMAL (NORMAL) 12/01/16 18:25 Eos Smear Source URINE 12/03/16 06:30 Eos Smear Total Cells NONE SEEN (NONE SEEN) 12/03/16 06:30 PT 11.2 SECONDS (9.5-11.5) 12/03/16 05:35 INR 1.08 (0.5-1.4) 12/03/16 05:35 PTT (Actin FS) 19.6 SECONDS (26.0-38.0) L 12/01/16 18:25 Sodium 171 mEq/L (136-145) H* 12/03/16 05:35 Potassium 4.5 mEq/L (3.5-5.1) 12/03/16 05:35 Chloride 144 mEq/L (98-107) H* 12/03/16 05:35 Carbon Dioxide 16.5 mEq/L (21.0-31.0) L 12/03/16 05:35 Anion Gap 15.0 (7.0-16.0) 12/03/16 05:35 BUN 150 mg/dL (7-25) H* 12/03/16 05:35 Creatinine 5.4 mg/dL (0.6-1.2) H* 12/03/16 05:35 Est GFR ( Amer) TNP 12/03/16 05:35 Est GFR (Non-Af Amer) TNP 12/03/16 05:35 BUN/Creatinine Ratio 27.8 12/03/16 05:35 Glucose 330 mg/dL (70-105) H 12/03/16 05:35 POC Glucose 268 MG/DL (70 - 105) H 12/03/16 06:36 Hemoglobin A1c % 9.0 % (4.0-6.0) H 12/01/16 18:25 Whole Bld Lactic Acid 1.48 mmol/L (0.60-1.99) 12/01/16 20:58 Uric Acid 11.6 mg/dL (2.3-6.6) H 12/03/16 05:35 Calcium 10.4 mg/dL (8.6-10.3) H 12/03/16 05:35 Magnesium 2.7 mg/dL (1.9-2.7) 12/03/16 05:35 Total Bilirubin 0.4 mg/dL (0.3-1.0) 12/03/16 05:35 AST 8 U/L (13-39) L 12/03/16 05:35 ALT 11 U/L (7-52) 12/03/16 05:35 Alkaline Phosphatase 60 U/L (34-104) 12/03/16 05:35 Total Protein 5.4 gm/dL (6.0-8.3) L 12/03/16 05:35 Albumin 2.6 gm/dL (3.7-5.3) L 12/03/16 05:35 Globulin 2.8 gm/dL 12/03/16 05:35 Albumin/Globulin Ratio 0.9 (1.0-1.8) L 12/03/16 05:35 TSH 2.49 uIU/ml (0.34-5.60) 12/03/16 05:35 Urine Source SOTO PORT 12/02/16 14:56 Urine Color YELLOW 12/02/16 14:56 Urine Clarity HAZY (CLEAR) 12/02/16 14:56 Urine pH 8.0 (4.6 - 8.0) 12/02/16 14:56 Ur Specific [place] 1.015 (1.005-1.030) 12/02/16 14:56 Urine Protein 100 mg/dL (NEGATIVE) H 12/02/16 14:56 Urine Glucose (UA) 500 mg/dL (NEGATIVE) H 12/02/16 14:56 Urine Ketones NEGATIVE mg/dL (NEGATIVE) 12/02/16 14:56 Urine Blood MODERATE (NEGATIVE) H 12/02/16 14:56 Urine Nitrate POSITIVE (NEGATIVE) H 12/02/16 14:56 Urine Bilirubin NEGATIVE (NEGATIVE) 12/02/16 14:56 Urine Urobilinogen 0.2 E.U./dL (0.2 - 1.0) 12/02/16 14:56 Ur Leukocyte Esterase MODERATE (NEGATIVE) H 12/02/16 14:56 Urine RBC 5-10 /hpf (0-5) H 12/02/16 14:56 Urine WBC 50-100 /hpf (0-5) H 12/02/16 14:56 Ur Epithelial Cells FEW /lpf (FEW) 12/02/16 14:56 Triple Phos Crystals MODERATE /hpf (FEW) 12/02/16 14:56 Urine Bacteria MANY /hpf (NONE SEEN) 12/02/16 14:56 Ur Random Sodium 75 mmol/L 12/03/16 06:30 Urine Creatinine 49.0 mg/dl (28.0-217.0) 12/03/16 06:30 Blood Type O POSITIVE 12/02/16 05:05 Antibody Screen NEGATIVE 12/02/16 05:05 - Physical Exam Vitals and I&O: Vital Signs Temp 98.0 F 12/03/16 04:00 Pulse 59 12/03/16 04:00 Resp 17 12/03/16 04:00 BP 144/70 12/03/16 04:00 Pulse Ox 97 12/03/16 04:00 Intake & Output 12/02/16 12/03/16 12/03/16 18:59 06:59 18:59 Intake Total 1608 Output Total 550 Balance 1058 Weight (lbs) 44.906 kg Intake: Intake, IV Amount 1608 D5-0.45NS 1,000 ml @ 120 1608 mls/hr IV .Q8H20M [facility] Rx# :[id number] Oral 0 Output: Urine 550 Active Medications: Current Medications Acetaminophen (Tylenol) 650 mg PO Q6H PRN PRN Reason: Pain or Fever >101 Stop: 01/31/17 11:18 Bisacodyl (Dulcolax 5 Mg Ec Tab) 10 mg PO BID [facility] Stop: 01/31/17 16:59 Dextrose/Sodium Chloride (D5-0.45ns) 1,000 mls @ 120 mls/hr IV .Q8H20M [facility] Stop: 01/31/17 04:10 Last Infusion: 12/03/16 06:13 Dose: 120 mls/hr Insulin Aspart (Novolog Insulin Sliding Scale) 0 units SUBQ ACHS BRIELLE PRN Reason: Protocol Stop: 01/31/17 07:29 Last Admin: 12/03/16 06:41 Dose: Not Given Miscellaneous (Vte Chemical Prophylaxis Screen/ Admission) 1 ea MC PRN PRN PRN Reason: PROTOCOL Stop: 01/31/17 13:38 Pantoprazole Sodium (Protonix) 40 mg IVP DAILY BRIELLE Stop: 02/01/17 08:59 Sodium Bicarbonate (Sodium Bicarbonate) 650 mg PO BID BRIELLE PRN Reason: Protocol Stop: 01/31/17 16:59 Last Admin: 12/02/16 17:50 Dose: Not Given General: Other (Sedated, post surgery.) HEENT: Atraumatic Neck: Supple Cardiovascular: Regular rate Lungs: Clear to auscultation Abdomen: Bowel sounds, Soft, Other (PEG in place.) Extremities: Other (No edema) Neurological: Other (Non ambulatory) Skin: Other (Decubit sacral ulcer stage IV) Psych/Mental Status: Other (Sedated, post surgery) - Procedures Procedures: Procedures Procedure Code Date CHAGO MUSC/FASCIA 20 SQ CM/< 19004 10/24/16 EXCISION OF LEFT HIP MUSCLE, OPEN APPROACH [id number] 10/24/16 Assessment/Plan - Problem List Patient Problems: All Active Problems POOR ORAL INTAKE AND SWALLOWING (Acute) SACRAL AND BILATERAL BUTTOCK SKIN ULCERS (Acute) - Assessment Assessment: Current Active Problems Problem Status Onset POOR ORAL INTAKE AND SWALLOWING Acute Patient is sedated, post surgery, in no acute distress. Dx: Hypernatremia, AKF , Chronic anemia, Sacral decubitus ulcer stage IV, HTN, DM, Dementia - Plan Plan: PEH in place, fedding will be started iat 10:00 am. Hold meds awaitting G-tube placement. Already seen by Aaliyahro, and GI. NA, and Creatinine improving. Case discussed with family. Will continue to monitor. Nutritional Asmnt/Malnutr-PDOC - Dietary Evaluation Malnutrition Findings (Please click <Entered> for more info): Nutritional Asmnt/Malnutrition Start: 12/02/16 14: 44 Text: Status: Complete Freq: Document 12/02/16 14:44 GSUN (Rec: 12/02/16 15:19 [email or web address] [email or web address]) Nutritional Asmnt/Malnutrition Patient General Information Nutritional Screening Consult Diagnosis AKF, sacral decubitus ulcer stage IV, HTN, DM, dementia, chronic anemia Pertinent Medical Hx/Surgical Hx CAD, CVA, dementia, psychosis, muscle atrophy, AKF, DM, decubitus ulcer stage IV Subjective Information 81 year old female from SNF. RD consult for low Elliot and elevated blood glucose. Pt was awake, unable to provide nutrition hx. Family at bedside, spoke to family and RN Loren regarding nutrition plan of care, PEG placement consent obtained. Family has no other questions at this time. 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 Per nursing adm notes , 4-5lb wt loss in 2 weeks. Per family, unaware of UBW, aware of recent wt loss, stated pt stopped eating ~3-4 days ago. Loose skin, moderate to severe muslce fat wasting to chest and clavicles. Current Diet Order/ Nutrition Support NPO Pertinent Medications Dulcolax, D5-0.45ns, Novolog Pertinent Labs 12/01: A1c 9H 12/02: sodium 173H, potassium 5.3H, BUN 169H, creatinie 5.8H , glucose 238H, calcium 10.8H Nutritional Hx/Data Height 1.52 m Height (Calculated Centimeters) 152.4 Current Weight (lbs) 43.545 kg Weight (Calculated Kilograms) 43.5 Weight (Calculated Grams) 07742.9 [place] Body Weight 100 Recent Weight Change Yes Weight Status Approriate GI Symptoms Usual diet at home [facility]: pureed, ALISE [facility] Skin Integrity/Comment: Elliot 11. Sacral decubitus ulcer stage IV. Estimated Nutritional Goals Calories/Kcals/Kg IBW 100lb/45.5kg Kcals Calculated 1365-1593kcal (30-35kcal/kg) Protein Calculated 68-73g (1.4-1.6g/kg, ulcer vs renal, ?HD) Fluid: ml Per MD Nutritional Problem 3. Problem Problem Altered nutrition related laboratory values related to Etiology DM aeb Signs/Symptoms: A1c 9H, glucose 238H 2. Problem Problem Increased kcal and prot needs related to Etiology skin integrity, recent weight loss aeb Signs/Symptoms: Sacral decubitus ulcer stage IV, wt loss 4-5lb in 2 weeks per nursing adm notes, moderate to seevre muslce/fat wasting to chest and clavicles 1. Problem Problem Impaired nutrient utilization related to Etiology acute kidney injury aeb Signs/Symptoms: potassium 5.3H, BUN 169H, creatinie 5.8H, calcium 10.8H Intervention/Recommendation Comments 1. Discussed enteral nutrition with family. Family has no further questions at this time . 2. When medically feasible to initiate feeding, recommend Novasource Renal at 30ml/hr x 24hrs, providing 720ml total volume, 1440kcal, 65g protein. Initiate at 10ml/hr for first 24 hrs, monitor for refeeding syndrome and tolerance, increase by 5ml/hr q12hrs until goal. 3. Recommend 1 packet Arginaid daily via tube for wound healing. 4. Monitor weight closely. Hx 4-5lb wt loss in 2 weeks per nursing adm note. Expected Outcomes/Goals Expected Outcomes/Goals 1. Pt to meet at least 75% of estimated nutritinoal eneds on tube feeding with tolerance.
[2016-12-03] MEDS: Multivitamin w/ Minerals Tab PO SCH (11:07)
[2016-12-03] MEDS: Venelex 60gm Tube TP SCH (11:08)
--- NOTE | 2016-12-03 12:42 | Consultation ---
DATE OF CONSULTATION: 12/02/2016 REASON FOR CONSULT: Failure to thrive, dehydration, dysphagia. HISTORY OF PRESENT ILLNESS: This consult was obtained through the request of Dr. La for this 81-year-old with history of hypertension, diabetes, hyperlipidemia, dementia, CVA, admitted to the hospital because of altered status, becoming lethargic, dehydrated, weak, fatigued. The patient came to the hospital and found to be in renal failure. Initially family was against feeding tube, but now they are changing their mind. GI consult was called in for further evaluation. The patient is not able to provide any history. PAST MEDICAL HISTORY: As above. PAST SURGICAL HISTORY: Negative. SOCIAL HISTORY: Nonsmoker, nonalcoholic, non-IV drug abuser. FAMILY HISTORY: Noncontributory. ALLERGIES: No known drug allergies. MEDICATIONS: The patient is on Tylenol, Dulcolax, Captopril, insulin sliding scale. REVIEW OF SYSTEMS: Unobtainable. PHYSICAL EXAMINATION: GENERAL: The patient is nonverbal, lethargic. VITAL SIGNS: Blood pressure is 125/72, heart rate 103, respiratory rate 18, temperature is 97.6. HEAD AND NECK: Pupils reactive to light. Extraocular muscles could not be tested. Oral cavity, dry mucous membrane. Neck is supple. No jugular venous distention. No carotid bruit or lymph node. CHEST: Good respiratory movements. LUNGS: Clear to auscultation. CARDIOVASCULAR: Regular rate and rhythm. No murmur or gallop. ABDOMEN: Soft, positive bowel sounds. EXTREMITIES: Lower extremities, no edema. Buttocks showed decubitus ulcer. LABORATORY DATA: White count 11.2, H and H of 9.7 and 30.3 with platelets of 115. PT is normal 10.3 seconds, INR 1.99. Chemistry showed sodium 175, potassium 5.3, BUN and creatinine of 169 and 5.8. IMPRESSION: An 81-year-old with dehydration, failure to thrive, now in acute renal failure. ASSESSMENT AND PLAN: Dehydration and failure to thrive. Agree that the patient would benefit from a PEG. Discussed with the son and apparently the , the one who was against the PEG, now he changed his mind, so they are all now in favor of the PEG, so we will first work on the kidney to correct the kidney function or improve that a bit, correct the hypernatremia, the hyperkalemia, and then possible PEG in a day or two. Meanwhile, IV fluids as needed. We will cover with antibiotics and will plan a PEG in the morning if possible. Other medical problems such as acute renal failure, diabetes, hypertension, hyperlipidemia, dementia, CVA, etc., as per Dr. La. Thank you Dr. Damian La for allowing me to participate in the care of the patient. If you have any further questions, please let me know. JOB# [id number]
--- NOTE | 2016-12-03 14:23 | General Progress Note ---
Subjective - Review of Systems Service Date: 12/03/16 Subjective: more awake Objective - Results Result Diagrams: 12/03/16 05:35 12/03/16 05:35 Recent Labs: Laboratory Last Values WBC 9.1 Th/cmm (4.8-10.8) 12/03/16 05:35 Corrected WBC (auto) 8.8 Th/cmm (4.8-10.8) 12/01/16 18:25 RBC 2.94 Mil/cmm (3.80-5.20) L 12/03/16 05:35 Hgb 8.2 gm/dL (12-16) L 12/03/16 05:35 Hct 25.8 % (41.0-60) L D 12/03/16 05:35 MCV 87.6 fl (81-100) 12/03/16 05:35 MCH 27.9 pg (27.0-31.0) 12/03/16 05:35 MCHC Differential 31.8 pg (28.0-36.0) 12/03/16 05:35 RDW 21.4 % (11.5-20.0) H 12/03/16 05:35 Plt Count 91 Th/cmm (150-400) L D 12/03/16 05:35 MPV 14.5 fl 12/03/16 05:35 Neutrophils % 75.5 % (40.0-80.0) 12/02/16 05:05 Band Neutrophils % 15 % (0-10) H 12/03/16 05:35 Lymphocytes % 18.4 % (20.0-50.0) L 12/02/16 05:05 Monocytes % 5.3 % (2.0-10.0) 12/02/16 05:05 Eosinophils % 0.7 % (0.0-5.0) 12/02/16 05:05 Basophils % 0.1 % (0.0-2.0) 12/02/16 05:05 Neutrophils (Manual) 60 % (40-80) 12/03/16 05:35 Lymphocytes 16 % (20-50) L 12/03/16 05:35 Monocytes 6 % (2-10) 12/03/16 05:35 Eosinophils 3 % (0-5) 12/03/16 05:35 Nucleated RBCs 5.0 % (0-0) H 12/01/16 18:25 Atypical Lymphocytes 1 % 12/01/16 18:25 Platelet Estimate DECREASED PLATELETS (NORMAL) 12/03/16 05:35 Platelet Morphology NORMAL (NORMAL) 12/01/16 18:25 Anisocytosis 2+ 12/03/16 05:35 RBC Morph Micro Appear ABNORMAL (NORMAL) 12/01/16 18:25 Eos Smear Source URINE 12/03/16 06:30 Eos Smear Total Cells NONE SEEN (NONE SEEN) 12/03/16 06:30 PT 11.2 SECONDS (9.5-11.5) 12/03/16 05:35 INR 1.08 (0.5-1.4) 12/03/16 05:35 PTT (Actin FS) 19.6 SECONDS (26.0-38.0) L 12/01/16 18:25 Sodium 171 mEq/L (136-145) H* 12/03/16 05:35 Potassium 4.5 mEq/L (3.5-5.1) 12/03/16 05:35 Chloride 144 mEq/L (98-107) H* 12/03/16 05:35 Carbon Dioxide 16.5 mEq/L (21.0-31.0) L 12/03/16 05:35 Anion Gap 15.0 (7.0-16.0) 12/03/16 05:35 BUN 150 mg/dL (7-25) H* 12/03/16 05:35 Creatinine 5.4 mg/dL (0.6-1.2) H* 12/03/16 05:35 Est GFR ( Amer) TNP 12/03/16 05:35 Est GFR (Non-Af Amer) TNP 12/03/16 05:35 BUN/Creatinine Ratio 27.8 12/03/16 05:35 Glucose 330 mg/dL (70-105) H 12/03/16 05:35 POC Glucose 335 MG/DL (70 - 105) H 12/03/16 11:59 Hemoglobin A1c % 9.0 % (4.0-6.0) H 12/01/16 18:25 Whole Bld Lactic Acid 1.48 mmol/L (0.60-1.99) 12/01/16 20:58 Uric Acid 11.6 mg/dL (2.3-6.6) H 12/03/16 05:35 Calcium 10.4 mg/dL (8.6-10.3) H 12/03/16 05:35 Magnesium 2.7 mg/dL (1.9-2.7) 12/03/16 05:35 Total Bilirubin 0.4 mg/dL (0.3-1.0) 12/03/16 05:35 AST 8 U/L (13-39) L 12/03/16 05:35 ALT 11 U/L (7-52) 12/03/16 05:35 Alkaline Phosphatase 60 U/L (34-104) 12/03/16 05:35 Total Protein 5.4 gm/dL (6.0-8.3) L 12/03/16 05:35 Albumin 2.6 gm/dL (3.7-5.3) L 12/03/16 05:35 Globulin 2.8 gm/dL 12/03/16 05:35 Albumin/Globulin Ratio 0.9 (1.0-1.8) L 12/03/16 05:35 TSH 2.49 uIU/ml (0.34-5.60) 12/03/16 05:35 Urine Source SOTO PORT 12/02/16 14:56 Urine Color YELLOW 12/02/16 14:56 Urine Clarity HAZY (CLEAR) 12/02/16 14:56 Urine pH 8.0 (4.6 - 8.0) 12/02/16 14:56 Ur Specific [place] 1.015 (1.005-1.030) 12/02/16 14:56 Urine Protein 100 mg/dL (NEGATIVE) H 12/02/16 14:56 Urine Glucose (UA) 500 mg/dL (NEGATIVE) H 12/02/16 14:56 Urine Ketones NEGATIVE mg/dL (NEGATIVE) 12/02/16 14:56 Urine Blood MODERATE (NEGATIVE) H 12/02/16 14:56 Urine Nitrate POSITIVE (NEGATIVE) H 12/02/16 14:56 Urine Bilirubin NEGATIVE (NEGATIVE) 12/02/16 14:56 Urine Urobilinogen 0.2 E.U./dL (0.2 - 1.0) 12/02/16 14:56 Ur Leukocyte Esterase MODERATE (NEGATIVE) H 12/02/16 14:56 Urine RBC 5-10 /hpf (0-5) H 12/02/16 14:56 Urine WBC 50-100 /hpf (0-5) H 12/02/16 14:56 Ur Epithelial Cells FEW /lpf (FEW) 12/02/16 14:56 Triple Phos Crystals MODERATE /hpf (FEW) 12/02/16 14:56 Urine Bacteria MANY /hpf (NONE SEEN) 12/02/16 14:56 Ur Random Sodium 75 mmol/L 12/03/16 06:30 Urine Creatinine 49.0 mg/dl (28.0-217.0) 12/03/16 06:30 Blood Type O POSITIVE 12/02/16 05:05 Antibody Screen NEGATIVE 12/02/16 05:05 - Physical Exam Vitals and I&O: Vital Signs Temp 98.0 F 12/03/16 04:00 Pulse 59 12/03/16 04:00 Resp 17 12/03/16 04:00 BP 144/70 12/03/16 04:00 Pulse Ox 97 12/03/16 04:00 Intake & Output 12/02/16 12/03/16 12/03/16 18:59 06:59 18:59 Intake Total 1608 392 Output Total 550 Balance 1058 392 Weight (lbs) 44.906 kg Intake: Intake, IV Amount 1608 392 D5-0.45NS 1,000 ml @ 120 1608 392 mls/hr IV .Q8H20M [facility] Rx# :[id number] Oral 0 Output: Urine 550 Active Medications: Current Medications Acetaminophen (Tylenol) 650 mg PO Q6H PRN PRN Reason: Pain or Fever >101 Stop: 01/31/17 11:18 Bisacodyl (Dulcolax 5 Mg Ec Tab) 10 mg PO BID [facility] Stop: 01/31/17 16:59 Last Admin: 12/03/16 11:07 Dose: 10 mg Dextrose (D5w) 1,000 mls @ 125 mls/hr IV .Q8H [facility] Stop: 02/01/17 14:14 Insulin Aspart (Novolog Insulin Sliding Scale) 0 units SUBQ ACHS BRIELLE PRN Reason: Protocol Stop: 01/31/17 07:29 Last Admin: 12/03/16 12:32 Dose: 9 units Miscellaneous (Vte Chemical Prophylaxis Screen/ Admission) 1 ea MC PRN PRN PRN Reason: PROTOCOL Stop: 01/31/17 13:38 Pantoprazole Sodium (Protonix) 40 mg IVP DAILY BRIELLE Stop: 02/01/17 08:59 Last Admin: 12/03/16 11:07 Dose: 40 mg Sodium Bicarbonate (Sodium Bicarbonate) 650 mg PO BID BRIELLE PRN Reason: Protocol Stop: 01/31/17 16:59 Last Admin: 12/03/16 11:07 Dose: 650 mg General: No acute distress, Other (Sedated, post surgery.) HEENT: Atraumatic, Mucous membr. moist/pink Neck: Supple, +2 carotid pulse wo bruit Cardiovascular: Regular rate, Normal S1, Normal S2 Lungs: Clear to auscultation Abdomen: Bowel sounds, Soft, Other (PEG in place.) Extremities: Other (No edema), no Edema Neurological: Sensation intact, Other (Non ambulatory) Skin: Other (Decubit sacral ulcer stage IV), no Significant lesion Psych/Mental Status: Mood NL, Other (Sedated, post surgery) - Procedures Procedures: Procedures Procedure Code Date CHAGO MUSC/FASCIA 20 SQ CM/< 66257 10/24/16 EXCISION OF LEFT HIP MUSCLE, OPEN APPROACH [id number] 10/24/16 Assessment/Plan - Problem List Patient Problems: All Active Problems POOR ORAL INTAKE AND SWALLOWING (Acute) SACRAL AND BILATERAL BUTTOCK SKIN ULCERS (Acute) - Assessment Assessment: Bryan on CKD dehydration FTT 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 Anemia CKD - Plan Plan: Lab - Result Diagrams 12/03/16 05:35 12/03/16 05:35 Current Medications Acetaminophen (Tylenol) 650 mg PO Q6H PRN PRN Reason: Pain or Fever >101 Stop: 01/31/17 11:18 Bisacodyl (Dulcolax 5 Mg Ec Tab) 10 mg PO BID BRIELLE Stop: 01/31/17 16:59 Last Admin: 12/03/16 11:07 Dose: 10 mg Dextrose (D5w) 1,000 mls @ 125 mls/hr IV .Q8H [facility] Stop: 02/01/17 14:14 Insulin Aspart (Novolog Insulin Sliding Scale) 0 units SUBQ ACHS BRIELLE PRN Reason: Protocol Stop: 01/31/17 07:29 Last Admin: 12/03/16 12:32 Dose: 9 units Miscellaneous (Vte Chemical Prophylaxis Screen/ Admission) 1 ea MC PRN PRN PRN Reason: PROTOCOL Stop: 01/31/17 13:38 Pantoprazole Sodium (Protonix) 40 mg IVP DAILY BRIELLE Stop: 02/01/17 08:59 Last Admin: 12/03/16 11:07 Dose: 40 mg Sodium Bicarbonate (Sodium Bicarbonate) 650 mg PO BID BRIELLE PRN Reason: Protocol Stop: 01/31/17 16:59 Last Admin: 12/03/16 11:07 Dose: 650 mg Lab - Result Diagrams 12/03/16 05:35 12/03/16 05:35 kidney fnc gradually improving continue ivf of D5W Had placement of PEG start feeding tonite start epo Nutritional Asmnt/Malnutr-PDOC - Dietary Evaluation Malnutrition Findings (Please click <Entered> for more info): Nutritional Asmnt/Malnutrition Start: 12/02/16 14: 44 Text: Status: Complete Freq: Document 12/02/16 14:44 GSUN (Rec: 12/02/16 15:19 GSUN [email or web address]) Nutritional Asmnt/Malnutrition Patient General Information Nutritional Screening Consult Diagnosis AKF, sacral decubitus ulcer stage IV, HTN, DM, dementia, chronic anemia Pertinent Medical Hx/Surgical Hx CAD, CVA, dementia, psychosis, muscle atrophy, AKF, DM, decubitus ulcer stage IV Subjective Information 81 year old female from SNF. RD consult for low Elliot and elevated blood glucose. Pt was awake, unable to provide nutrition hx. Family at bedside, spoke to family and RN Loren regarding nutrition plan of care, PEG placement consent obtained. Family has no other questions at this time. Elevated BUN, counter help, K, family reported pt is not on dialysis, "possible HD today" per H&P. Per nursing adm notes , 4-5lb wt loss in 2 weeks. Per family, unaware of UBW, aware of recent wt loss, stated pt stopped eating ~3-4 days ago. Loose skin, moderate to severe muslce fat wasting to chest and clavicles. Current Diet Order/ Nutrition Support NPO Pertinent Medications Dulcolax, D5-0.45ns, Novolog Pertinent Labs 12/01: A1c 9H 12/02: sodium 173H, potassium 5.3H, BUN 169H, creatinie 5.8H , glucose 238H, calcium 10.8H Nutritional Hx/Data Height 1.52 m Height (Calculated Centimeters) 152.4 Current Weight (lbs) 43.545 kg Weight (Calculated Kilograms) 43.5 Weight (Calculated Grams) 01734.9 [place] Body Weight 100 Recent Weight Change Yes Weight Status Approriate GI Symptoms Usual diet at home [facility]: pureed, ALISE , [facility] Skin Integrity/Comment: Elliot 11. Sacral decubitus ulcer stage IV. Estimated Nutritional Goals Calories/Kcals/Kg IBW 100lb/45.5kg Kcals Calculated 1365-1593kcal (30-35kcal/kg) Protein Calculated 68-73g (1.4-1.6g/kg, ulcer vs renal, ?HD) Fluid: ml Per MD Nutritional Problem 3. Problem Problem Altered nutrition related laboratory values related to Etiology DM aeb Signs/Symptoms: A1c 9H, glucose 238H 2. Problem Problem Increased kcal and prot needs related to Etiology skin integrity, recent weight loss aeb Signs/Symptoms: Sacral decubitus ulcer stage IV, wt loss 4-5lb in 2 weeks per nursing adm notes, moderate to seevre muslce/fat wasting to chest and clavicles 1. Problem Problem Impaired nutrient utilization related to Etiology acute kidney injury aeb Signs/Symptoms: potassium 5.3H, BUN 169H, creatinie 5.8H, calcium 10.8H Intervention/Recommendation Comments 1. Discussed enteral nutrition with family. Family has no further questions at this time . 2. When medically feasible to initiate feeding, recommend Novasource Renal at 30ml/hr x 24hrs, providing 720ml total volume, 1440kcal, 65g protein. Initiate at 10ml/hr for first 24 hrs, monitor for refeeding syndrome and tolerance, increase by 5ml/hr q12hrs until goal. 3. Recommend 1 packet Arginaid daily via tube for wound healing. 4. Monitor weight closely. Hx 4-5lb wt loss in 2 weeks per nursing adm note. Expected Outcomes/Goals Expected Outcomes/Goals 1. Pt to meet at least 75% of estimated nutritinoal eneds on tube feeding with tolerance.
--- NOTE | 2016-12-03 14:23 | General Progress Note ---
Subjective - Review of Systems Service Date: 12/03/16 Subjective: more awake Objective - Results Result Diagrams: 12/03/16 05:35 12/03/16 05:35 Recent Labs: Laboratory Last Values WBC 9.1 Th/cmm (4.8-10.8) 12/03/16 05:35 Corrected WBC (auto) 8.8 Th/cmm (4.8-10.8) 12/01/16 18:25 RBC 2.94 Mil/cmm (3.80-5.20) L 12/03/16 05:35 Hgb 8.2 gm/dL (12-16) L 12/03/16 05:35 Hct 25.8 % (41.0-60) L D 12/03/16 05:35 MCV 87.6 fl (81-100) 12/03/16 05:35 MCH 27.9 pg (27.0-31.0) 12/03/16 05:35 MCHC Differential 31.8 pg (28.0-36.0) 12/03/16 05:35 RDW 21.4 % (11.5-20.0) H 12/03/16 05:35 Plt Count 91 Th/cmm (150-400) L D 12/03/16 05:35 MPV 14.5 fl 12/03/16 05:35 Neutrophils % 75.5 % (40.0-80.0) 12/02/16 05:05 Band Neutrophils % 15 % (0-10) H 12/03/16 05:35 Lymphocytes % 18.4 % (20.0-50.0) L 12/02/16 05:05 Monocytes % 5.3 % (2.0-10.0) 12/02/16 05:05 Eosinophils % 0.7 % (0.0-5.0) 12/02/16 05:05 Basophils % 0.1 % (0.0-2.0) 12/02/16 05:05 Neutrophils (Manual) 60 % (40-80) 12/03/16 05:35 Lymphocytes 16 % (20-50) L 12/03/16 05:35 Monocytes 6 % (2-10) 12/03/16 05:35 Eosinophils 3 % (0-5) 12/03/16 05:35 Nucleated RBCs 5.0 % (0-0) H 12/01/16 18:25 Atypical Lymphocytes 1 % 12/01/16 18:25 Platelet Estimate DECREASED PLATELETS (NORMAL) 12/03/16 05:35 Platelet Morphology NORMAL (NORMAL) 12/01/16 18:25 Anisocytosis 2+ 12/03/16 05:35 RBC Morph Micro Appear ABNORMAL (NORMAL) 12/01/16 18:25 Eos Smear Source URINE 12/03/16 06:30 Eos Smear Total Cells NONE SEEN (NONE SEEN) 12/03/16 06:30 PT 11.2 SECONDS (9.5-11.5) 12/03/16 05:35 INR 1.08 (0.5-1.4) 12/03/16 05:35 PTT (Actin FS) 19.6 SECONDS (26.0-38.0) L 12/01/16 18:25 Sodium 171 mEq/L (136-145) H* 12/03/16 05:35 Potassium 4.5 mEq/L (3.5-5.1) 12/03/16 05:35 Chloride 144 mEq/L (98-107) H* 12/03/16 05:35 Carbon Dioxide 16.5 mEq/L (21.0-31.0) L 12/03/16 05:35 Anion Gap 15.0 (7.0-16.0) 12/03/16 05:35 BUN 150 mg/dL (7-25) H* 12/03/16 05:35 Creatinine 5.4 mg/dL (0.6-1.2) H* 12/03/16 05:35 Est GFR ( Amer) TNP 12/03/16 05:35 Est GFR (Non-Af Amer) TNP 12/03/16 05:35 BUN/Creatinine Ratio 27.8 12/03/16 05:35 Glucose 330 mg/dL (70-105) H 12/03/16 05:35 POC Glucose 335 MG/DL (70 - 105) H 12/03/16 11:59 Hemoglobin A1c % 9.0 % (4.0-6.0) H 12/01/16 18:25 Whole Bld Lactic Acid 1.48 mmol/L (0.60-1.99) 12/01/16 20:58 Uric Acid 11.6 mg/dL (2.3-6.6) H 12/03/16 05:35 Calcium 10.4 mg/dL (8.6-10.3) H 12/03/16 05:35 Magnesium 2.7 mg/dL (1.9-2.7) 12/03/16 05:35 Total Bilirubin 0.4 mg/dL (0.3-1.0) 12/03/16 05:35 AST 8 U/L (13-39) L 12/03/16 05:35 ALT 11 U/L (7-52) 12/03/16 05:35 Alkaline Phosphatase 60 U/L (34-104) 12/03/16 05:35 Total Protein 5.4 gm/dL (6.0-8.3) L 12/03/16 05:35 Albumin 2.6 gm/dL (3.7-5.3) L 12/03/16 05:35 Globulin 2.8 gm/dL 12/03/16 05:35 Albumin/Globulin Ratio 0.9 (1.0-1.8) L 12/03/16 05:35 TSH 2.49 uIU/ml (0.34-5.60) 12/03/16 05:35 Urine Source SOTO PORT 12/02/16 14:56 Urine Color YELLOW 12/02/16 14:56 Urine Clarity HAZY (CLEAR) 12/02/16 14:56 Urine pH 8.0 (4.6 - 8.0) 12/02/16 14:56 Ur Specific [place] 1.015 (1.005-1.030) 12/02/16 14:56 Urine Protein 100 mg/dL (NEGATIVE) H 12/02/16 14:56 Urine Glucose (UA) 500 mg/dL (NEGATIVE) H 12/02/16 14:56 Urine Ketones NEGATIVE mg/dL (NEGATIVE) 12/02/16 14:56 Urine Blood MODERATE (NEGATIVE) H 12/02/16 14:56 Urine Nitrate POSITIVE (NEGATIVE) H 12/02/16 14:56 Urine Bilirubin NEGATIVE (NEGATIVE) 12/02/16 14:56 Urine Urobilinogen 0.2 E.U./dL (0.2 - 1.0) 12/02/16 14:56 Ur Leukocyte Esterase MODERATE (NEGATIVE) H 12/02/16 14:56 Urine RBC 5-10 /hpf (0-5) H 12/02/16 14:56 Urine WBC 50-100 /hpf (0-5) H 12/02/16 14:56 Ur Epithelial Cells FEW /lpf (FEW) 12/02/16 14:56 Triple Phos Crystals MODERATE /hpf (FEW) 12/02/16 14:56 Urine Bacteria MANY /hpf (NONE SEEN) 12/02/16 14:56 Ur Random Sodium 75 mmol/L 12/03/16 06:30 Urine Creatinine 49.0 mg/dl (28.0-217.0) 12/03/16 06:30 Blood Type O POSITIVE 12/02/16 05:05 Antibody Screen NEGATIVE 12/02/16 05:05 - Physical Exam Vitals and I&O: Vital Signs Temp 98.0 F 12/03/16 04:00 Pulse 59 12/03/16 04:00 Resp 17 12/03/16 04:00 BP 144/70 12/03/16 04:00 Pulse Ox 97 12/03/16 04:00 Intake & Output 12/02/16 12/03/16 12/03/16 18:59 06:59 18:59 Intake Total 1608 392 Output Total 550 Balance 1058 392 Weight (lbs) 44.906 kg Intake: Intake, IV Amount 1608 392 D5-0.45NS 1,000 ml @ 120 1608 392 mls/hr IV .Q8H20M [facility] Rx# :[id number] Oral 0 Output: Urine 550 Active Medications: Current Medications Acetaminophen (Tylenol) 650 mg PO Q6H PRN PRN Reason: Pain or Fever >101 Stop: 01/31/17 11:18 Bisacodyl (Dulcolax 5 Mg Ec Tab) 10 mg PO BID [facility] Stop: 01/31/17 16:59 Last Admin: 12/03/16 11:07 Dose: 10 mg Dextrose (D5w) 1,000 mls @ 125 mls/hr IV .Q8H [facility] Stop: 02/01/17 14:14 Insulin Aspart (Novolog Insulin Sliding Scale) 0 units SUBQ ACHS [facility] PRN Reason: Protocol Stop: 01/31/17 07:29 Last Admin: 12/03/16 12:32 Dose: 9 units Miscellaneous (Vte Chemical Prophylaxis Screen/ Admission) 1 ea MC PRN PRN PRN Reason: PROTOCOL Stop: 01/31/17 13:38 Pantoprazole Sodium (Protonix) 40 mg IVP DAILY [facility] Stop: 02/01/17 08:59 Last Admin: 12/03/16 11:07 Dose: 40 mg Sodium Bicarbonate (Sodium Bicarbonate) 650 mg PO BID [facility] PRN Reason: Protocol Stop: 01/31/17 16:59 Last Admin: 12/03/16 11:07 Dose: 650 mg General: No acute distress, Other (Sedated, post surgery.) HEENT: Atraumatic, Mucous membr. moist/pink Neck: Supple, +2 carotid pulse wo bruit Cardiovascular: Regular rate, Normal S1, Normal S2 Lungs: Clear to auscultation Abdomen: Bowel sounds, Soft, Other (PEG in place.) Extremities: Other (No edema), no Edema Neurological: Sensation intact, Other (Non ambulatory) Skin: Other (Decubit sacral ulcer stage IV), no Significant lesion Psych/Mental Status: Mood NL, Other (Sedated, post surgery) - Procedures Procedures: Procedures Procedure Code Date CHAGO MUSC/FASCIA 20 SQ CM/< 24297 10/24/16 EXCISION OF LEFT HIP MUSCLE, OPEN APPROACH [id number] 10/24/16 Assessment/Plan - Problem List Patient Problems: All Active Problems POOR ORAL INTAKE AND SWALLOWING (Acute) SACRAL AND BILATERAL BUTTOCK SKIN ULCERS (Acute) - Assessment Assessment: Bryan on CKD dehydration FTT 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 Anemia CKD - Plan Plan: Lab - Result Diagrams 12/03/16 05:35 12/03/16 05:35 Current Medications Acetaminophen (Tylenol) 650 mg PO Q6H PRN PRN Reason: Pain or Fever >101 Stop: 01/31/17 11:18 Bisacodyl (Dulcolax 5 Mg Ec Tab) 10 mg PO BID [facility] Stop: 01/31/17 16:59 Last Admin: 12/03/16 11:07 Dose: 10 mg Dextrose (D5w) 1,000 mls @ 125 mls/hr IV .Q8H [facility] Stop: 02/01/17 14:14 Insulin Aspart (Novolog Insulin Sliding Scale) 0 units SUBQ ACHS [facility] PRN Reason: Protocol Stop: 01/31/17 07:29 Last Admin: 12/03/16 12:32 Dose: 9 units Miscellaneous (Vte Chemical Prophylaxis Screen/ Admission) 1 ea MC PRN PRN PRN Reason: PROTOCOL Stop: 01/31/17 13:38 Pantoprazole Sodium (Protonix) 40 mg IVP DAILY [facility] Stop: 02/01/17 08:59 Last Admin: 12/03/16 11:07 Dose: 40 mg Sodium Bicarbonate (Sodium Bicarbonate) 650 mg PO BID [facility] PRN Reason: Protocol Stop: 01/31/17 16:59 Last Admin: 12/03/16 11:07 Dose: 650 mg Lab - Result Diagrams 12/03/16 05:35 12/03/16 05:35 kidney fnc gradually improving continue ivf of D5W Had placement of PEG start feeding tonite start epo Nutritional Asmnt/Malnutr-PDOC - Dietary Evaluation Malnutrition Findings (Please click <Entered> for more info): Nutritional Asmnt/Malnutrition Start: 12/02/16 14: 44 Text: Status: Complete Freq: Document 12/02/16 14:44 GSUN (Rec: 12/02/16 15:19 GSUN [email or web address]) Nutritional Asmnt/Malnutrition Patient General Information Nutritional Screening Consult Diagnosis AKF, sacral decubitus ulcer stage IV, HTN, DM, dementia, chronic anemia Pertinent Medical Hx/Surgical Hx CAD, CVA, dementia, psychosis, muscle atrophy, AKF, DM, decubitus ulcer stage IV Subjective Information 81 year old female from SNF. RD consult for low Elliot and elevated blood glucose. Pt was awake, unable to provide nutrition hx. Family at bedside, spoke to family and RN Loren regarding nutrition plan of care, PEG placement consent obtained. Family has no other questions at this time. 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 Per nursing adm notes , 4-5lb wt loss in 2 weeks. Per family, unaware of UBW, aware of recent wt loss, stated pt stopped eating ~3-4 days ago. Loose skin, moderate to severe muslce fat wasting to chest and clavicles. Current Diet Order/ Nutrition Support NPO Pertinent Medications Dulcolax, D5-0.45ns, Novolog Pertinent Labs 12/01: A1c 9H 12/02: sodium 173H, potassium 5.3H, BUN 169H, creatinie 5.8H , glucose 238H, calcium 10.8H Nutritional Hx/Data Height 1.52 m Height (Calculated Centimeters) 152.4 Current Weight (lbs) 43.545 kg Weight (Calculated Kilograms) 43.5 Weight (Calculated Grams) 01878.9 [place] Body Weight 100 Recent Weight Change Yes Weight Status Approriate GI Symptoms Usual diet at home [facility] Skin Integrity/Comment: Elliot 11. Sacral decubitus ulcer stage IV. Estimated Nutritional Goals Calories/Kcals/Kg IBW 100lb/45.5kg Kcals Calculated 1365-1593kcal (30-35kcal/kg) Protein Calculated 68-73g (1.4-1.6g/kg, ulcer vs renal, ?HD) Fluid: ml Per MD Nutritional Problem 3. Problem Problem Altered nutrition related laboratory values related to Etiology DM aeb Signs/Symptoms: A1c 9H, glucose 238H 2. Problem Problem Increased kcal and prot needs related to Etiology skin integrity, recent weight loss aeb Signs/Symptoms: Sacral decubitus ulcer stage IV, wt loss 4-5lb in 2 weeks per nursing adm notes, moderate to seevre muslce/fat wasting to chest and clavicles 1. Problem Problem Impaired nutrient utilization related to Etiology acute kidney injury aeb Signs/Symptoms: potassium 5.3H, BUN 169H, creatinie 5.8H, calcium 10.8H Intervention/Recommendation Comments 1. Discussed enteral nutrition with family. Family has no further questions at this time . 2. When medically feasible to initiate feeding, recommend Novasource Renal at 30ml/hr x 24hrs, providing 720ml total volume, 1440kcal, 65g protein. Initiate at 10ml/hr for first 24 hrs, monitor for refeeding syndrome and tolerance, increase by 5ml/hr q12hrs until goal. 3. Recommend 1 packet Arginaid daily via tube for wound healing. 4. Monitor weight closely. Hx 4-5lb wt loss in 2 weeks per nursing adm note. Expected Outcomes/Goals Expected Outcomes/Goals 1. Pt to meet at least 75% of estimated nutritinoal eneds on tube feeding with tolerance.
--- NOTE | 2016-12-03 14:46 | Operative Report ---
DATE OF SURGERY: 12/03/2016 INPATIENT GASTROINTESTINAL PROCEDURE NAME OF PROCEDURE: PEG tube placement and EGD with biopsy. REFERRING PHYSICIAN: Dr. Damian La. REASON FOR PROCEDURE: Dysphagia. CONSENT: Risks, benefits, alternatives, nature, indication, possible outcomes were discussed. Mentioned bleeding, infection, perforation, , disability, cardiopulmonary distress and arrest, missed lesion and cancers, need for surgery, cellulitis, malfunctioning of feeding tube, the patient pulling out the feeding tube. The patient is agreeing and constitution party provided informed consent. PREOPERATIVE DIAGNOSIS: Dysphagia. POSTOPERATIVE DIAGNOSIS: Gastritis, PEG tube placement. MEDICATIONS: Ancef 1 g, MAC by anesthesiologist. DESCRIPTION OF PROCEDURE: The patient was placed on her back, upper endoscope was advanced from the mouth and second portion of duodenum. Scope brought back in the stomach. Retroflexion view of fundus, cardia, lesser curvature. Scope was straightened. Gastritis was seen. Biopsies were taken. Stomach was insufflated with air. Transillumination was seen in left upper quadrant along with transposition of external wall forces. Area was prepped in the usual sterile fashion, 3 mL of 1% lidocaine was used to anesthetize the area. Trocar was advanced from the anterior abdominal wall, entering into stomach lumen. On endoscope view, wire was passed through the trocar, captured with a snare, pulled out of the oral end of the patient. PEG tube was attached to the oral end of the wire. Small lateral incision was made at the entry site of the trocar. Wire was pulled into position, pulling along with it the PEG tube. Gastroscope readvanced back into the stomach where the bumper seen in satisfactory position. Scope was then removed. COMPLICATIONS: None. FINDINGS: 1. Normal appearing esophagus. 2. Gastritis with coffee secretions, status post biopsy. 3. PEG tube placement. 4. Normal duodenum. RECOMMENDATIONS: 1. Use G-tube in 8 hours. 2. Check residual every 6 hours and hold if greater than 100 mL. 3. Abdominal binder to protect the G-tube. 4. Provide the patient with Protonix. 5. Follow up on biopsies. Thank you for allowing me to participate. Please call me if you have any questions. JOB# [id number]
--- NOTE | 2016-12-03 15:44 | General Progress Note ---
Subjective - Review of Systems Service Date: 12/03/16 Events since last encounter: discussed with and family regarding diverting colostomy to maximize healing of left hip DU which is so close to the anus on a patient with incontinence and bedridden status due to CVA Objective - Results Result Diagrams: 12/03/16 05:35 12/03/16 05:35 Recent Labs: Laboratory Last Values WBC 9.1 Th/cmm (4.8-10.8) 12/03/16 05:35 Corrected WBC (auto) 8.8 Th/cmm (4.8-10.8) 12/01/16 18:25 RBC 2.94 Mil/cmm (3.80-5.20) L 12/03/16 05:35 Hgb 8.2 gm/dL (12-16) L 12/03/16 05:35 Hct 25.8 % (41.0-60) L D 12/03/16 05:35 MCV 87.6 fl (81-100) 12/03/16 05:35 MCH 27.9 pg (27.0-31.0) 12/03/16 05:35 MCHC Differential 31.8 pg (28.0-36.0) 12/03/16 05:35 RDW 21.4 % (11.5-20.0) H 12/03/16 05:35 Plt Count 91 Th/cmm (150-400) L D 12/03/16 05:35 MPV 14.5 fl 12/03/16 05:35 Neutrophils % 75.5 % (40.0-80.0) 12/02/16 05:05 Band Neutrophils % 15 % (0-10) H 12/03/16 05:35 Lymphocytes % 18.4 % (20.0-50.0) L 12/02/16 05:05 Monocytes % 5.3 % (2.0-10.0) 12/02/16 05:05 Eosinophils % 0.7 % (0.0-5.0) 12/02/16 05:05 Basophils % 0.1 % (0.0-2.0) 12/02/16 05:05 Neutrophils (Manual) 60 % (40-80) 12/03/16 05:35 Lymphocytes 16 % (20-50) L 12/03/16 05:35 Monocytes 6 % (2-10) 12/03/16 05:35 Eosinophils 3 % (0-5) 12/03/16 05:35 Nucleated RBCs 5.0 % (0-0) H 12/01/16 18:25 Atypical Lymphocytes 1 % 12/01/16 18:25 Platelet Estimate DECREASED PLATELETS (NORMAL) 12/03/16 05:35 Platelet Morphology NORMAL (NORMAL) 12/01/16 18:25 Anisocytosis 2+ 12/03/16 05:35 RBC Morph Micro Appear ABNORMAL (NORMAL) 12/01/16 18:25 Eos Smear Source URINE 12/03/16 06:30 Eos Smear Total Cells NONE SEEN (NONE SEEN) 12/03/16 06:30 PT 11.2 SECONDS (9.5-11.5) 12/03/16 05:35 INR 1.08 (0.5-1.4) 12/03/16 05:35 PTT (Actin FS) 19.6 SECONDS (26.0-38.0) L 12/01/16 18:25 Sodium 171 mEq/L (136-145) H* 12/03/16 05:35 Potassium 4.5 mEq/L (3.5-5.1) 12/03/16 05:35 Chloride 144 mEq/L (98-107) H* 12/03/16 05:35 Carbon Dioxide 16.5 mEq/L (21.0-31.0) L 12/03/16 05:35 Anion Gap 15.0 (7.0-16.0) 12/03/16 05:35 BUN 150 mg/dL (7-25) H* 12/03/16 05:35 Creatinine 5.4 mg/dL (0.6-1.2) H* 12/03/16 05:35 Est GFR ( Amer) TNP 12/03/16 05:35 Est GFR (Non-Af Amer) TNP 12/03/16 05:35 BUN/Creatinine Ratio 27.8 12/03/16 05:35 Glucose 330 mg/dL (70-105) H 12/03/16 05:35 POC Glucose 335 MG/DL (70 - 105) H 12/03/16 11:59 Hemoglobin A1c % 9.0 % (4.0-6.0) H 12/01/16 18:25 Whole Bld Lactic Acid 1.48 mmol/L (0.60-1.99) 12/01/16 20:58 Uric Acid 11.6 mg/dL (2.3-6.6) H 12/03/16 05:35 Calcium 10.4 mg/dL (8.6-10.3) H 12/03/16 05:35 Magnesium 2.7 mg/dL (1.9-2.7) 12/03/16 05:35 Total Bilirubin 0.4 mg/dL (0.3-1.0) 12/03/16 05:35 AST 8 U/L (13-39) L 12/03/16 05:35 ALT 11 U/L (7-52) 12/03/16 05:35 Alkaline Phosphatase 60 U/L (34-104) 12/03/16 05:35 Total Protein 5.4 gm/dL (6.0-8.3) L 12/03/16 05:35 Albumin 2.6 gm/dL (3.7-5.3) L 12/03/16 05:35 Globulin 2.8 gm/dL 12/03/16 05:35 Albumin/Globulin Ratio 0.9 (1.0-1.8) L 12/03/16 05:35 TSH 2.49 uIU/ml (0.34-5.60) 12/03/16 05:35 Urine Source SOTO PORT 12/02/16 14:56 Urine Color YELLOW 12/02/16 14:56 Urine Clarity HAZY (CLEAR) 12/02/16 14:56 Urine pH 8.0 (4.6 - 8.0) 12/02/16 14:56 Ur Specific [place] 1.015 (1.005-1.030) 12/02/16 14:56 Urine Protein 100 mg/dL (NEGATIVE) H 12/02/16 14:56 Urine Glucose (UA) 500 mg/dL (NEGATIVE) H 12/02/16 14:56 Urine Ketones NEGATIVE mg/dL (NEGATIVE) 12/02/16 14:56 Urine Blood MODERATE (NEGATIVE) H 12/02/16 14:56 Urine Nitrate POSITIVE (NEGATIVE) H 12/02/16 14:56 Urine Bilirubin NEGATIVE (NEGATIVE) 12/02/16 14:56 Urine Urobilinogen 0.2 E.U./dL (0.2 - 1.0) 12/02/16 14:56 Ur Leukocyte Esterase MODERATE (NEGATIVE) H 12/02/16 14:56 Urine RBC 5-10 /hpf (0-5) H 12/02/16 14:56 Urine WBC 50-100 /hpf (0-5) H 12/02/16 14:56 Ur Epithelial Cells FEW /lpf (FEW) 12/02/16 14:56 Triple Phos Crystals MODERATE /hpf (FEW) 12/02/16 14:56 Urine Bacteria MANY /hpf (NONE SEEN) 12/02/16 14:56 Ur Random Sodium 75 mmol/L 12/03/16 06:30 Urine Creatinine 49.0 mg/dl (28.0-217.0) 12/03/16 06:30 Blood Type O POSITIVE 12/02/16 05:05 Antibody Screen NEGATIVE 12/02/16 05:05 - Physical Exam Vitals and I&O: Vital Signs Temp 98.0 F 12/03/16 04:00 Pulse 59 12/03/16 04:00 Resp 17 12/03/16 04:00 BP 144/70 12/03/16 04:00 Pulse Ox 97 12/03/16 04:00 Intake & Output 12/02/16 12/03/16 12/03/16 18:59 06:59 18:59 Intake Total 1608 392 Output Total 550 Balance 1058 392 Weight (lbs) 44.906 kg Intake: Intake, IV Amount 1608 392 D5-0.45NS 1,000 ml @ 120 1608 392 mls/hr IV .Q8H20M [facility] Rx# :[id number] Oral 0 Output: Urine 550 Active Medications: Current Medications Acetaminophen (Tylenol) 650 mg PO Q6H PRN PRN Reason: Pain or Fever >101 Stop: 01/31/17 11:18 Bisacodyl (Dulcolax 5 Mg Ec Tab) 10 mg PO BID [facility] Stop: 01/31/17 16:59 Last Admin: 12/03/16 11:07 Dose: 10 mg Epoetin Esequiel (Epogen) 10,000 units SUBQ TuThSa [facility] Stop: 02/01/17 14:29 Dextrose (D5w) 1,000 mls @ 125 mls/hr IV .Q8H [facility] Stop: 02/01/17 14:14 Insulin Aspart (Novolog Insulin Sliding Scale) 0 units SUBQ ACHS B[facility]ELLE PRN Reason: Protocol Stop: 01/31/17 07:29 Last Admin: 12/03/16 12:32 Dose: 9 units Miscellaneous (Vte Chemical Prophylaxis Screen/ Admission) 1 ea MC PRN PRN PRN Reason: PROTOCOL Stop: 01/31/17 13:38 Pantoprazole Sodium (Protonix) 40 mg IVP DAILY [facility] Stop: 02/01/17 08:59 Last Admin: 12/03/16 11:07 Dose: 40 mg Sodium Bicarbonate (Sodium Bicarbonate) 650 mg PO BID [facility] PRN Reason: Protocol Stop: 01/31/17 16:59 Last Admin: 12/03/16 11:07 Dose: 650 mg General: No acute distress, Other (Sedated, post surgery.) HEENT: Atraumatic, Mucous membr. moist/pink Neck: Supple, +2 carotid pulse wo bruit Cardiovascular: Regular rate, Normal S1, Normal S2 Lungs: Clear to auscultation Abdomen: Bowel sounds, Soft, Other (PEG in place.) Extremities: Other (No edema), no Edema Neurological: Sensation intact, Other (Non ambulatory) Skin: Other (Decubit sacral ulcer stage IV), no Significant lesion Psych/Mental Status: Mood NL, Other (Sedated, post surgery) - Procedures Procedures: Procedures Procedure Code Date CHAGO MUSC/FASCIA 20 SQ CM/< 15657 10/24/16 EXCISION OF LEFT HIP MUSCLE, OPEN APPROACH [id number] 10/24/16 Assessment/Plan - Problem List Patient Problems: All Active Problems POOR ORAL INTAKE AND SWALLOWING (Acute) SACRAL AND BILATERAL BUTTOCK SKIN ULCERS (Acute) Nutritional Asmnt/Malnutr-PDOC - Dietary Evaluation Malnutrition Findings (Please click <Entered> for more info): Nutritional Asmnt/Malnutrition Start: 12/02/16 14: 44 Text: Status: Complete Freq: Document 12/02/16 14:44 GSUN (Rec: 12/02/16 15:19 [email or web address] Nutritional Asmnt/Malnutrition Patient General Information Nutritional Screening Consult Diagnosis AKF, sacral decubitus ulcer stage IV, HTN, DM, dementia, chronic anemia Pertinent Medical Hx/Surgical Hx CAD, CVA, dementia, psychosis, muscle atrophy, AKF, DM, decubitus ulcer stage IV Subjective Information 81 year old female from SNF. RD consult for low Elliot and elevated blood glucose. Pt was awake, unable to provide nutrition hx. Family at bedside, spoke to family and RN Loren regarding nutrition plan of care, PEG placement consent obtained. Family has no other questions at this time. 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 Per nursing adm notes , 4-5lb wt loss in 2 weeks. Per family, unaware of UBW, aware of recent wt loss, stated pt stopped eating ~3-4 days ago. Loose skin, moderate to severe muslce fat wasting to chest and clavicles. Current Diet Order/ Nutrition Support NPO Pertinent Medications Dulcolax, D5-0.45ns, Novolog Pertinent Labs 12/01: A1c 9H 12/02: sodium 173H, potassium 5.3H, BUN 169H, creatinie 5.8H , glucose 238H, calcium 10.8H Nutritional Hx/Data Height 1.52 m Height (Calculated Centimeters) 152.4 Current Weight (lbs) 43.545 kg Weight (Calculated Kilograms) 43.5 Weight (Calculated Grams) 21245.9 [place] Body Weight 100 Recent Weight Change Yes Weight Status Approriate GI Symptoms Usual diet at home [facility] Skin Integrity/Comment: Elliot 11. Sacral decubitus ulcer stage IV. Estimated Nutritional Goals Calories/Kcals/Kg IBW 100lb/45.5kg Kcals Calculated 1365-1593kcal (30-35kcal/kg) Protein Calculated 68-73g (1.4-1.6g/kg, ulcer vs renal, ?HD) Fluid: ml Per MD Nutritional Problem 3. Problem Problem Altered nutrition related laboratory values related to Etiology DM aeb Signs/Symptoms: A1c 9H, glucose 238H 2. Problem Problem Increased kcal and prot needs related to Etiology skin integrity, recent weight loss aeb Signs/Symptoms: Sacral decubitus ulcer stage IV, wt loss 4-5lb in 2 weeks per nursing adm notes, moderate to seevre muslce/fat wasting to chest and clavicles 1. Problem Problem Impaired nutrient utilization related to Etiology acute kidney injury aeb Signs/Symptoms: potassium 5.3H, BUN 169H, creatinie 5.8H, calcium 10.8H Intervention/Recommendation Comments 1. Discussed enteral nutrition with family. Family has no further questions at this time . 2. When medically feasible to initiate feeding, recommend Novasource Renal at 30ml/hr x 24hrs, providing 720ml total volume, 1440kcal, 65g protein. Initiate at 10ml/hr for first 24 hrs, monitor for refeeding syndrome and tolerance, increase by 5ml/hr q12hrs until goal. 3. Recommend 1 packet Arginaid daily via tube for wound healing. 4. Monitor weight closely. Hx 4-5lb wt loss in 2 weeks per nursing adm note. Expected Outcomes/Goals Expected Outcomes/Goals 1. Pt to meet at least 75% of estimated nutritinoal eneds on tube feeding with tolerance.
--- NOTE | 2016-12-03 15:44 | General Progress Note ---
Subjective - Review of Systems Service Date: 12/03/16 Events since last encounter: discussed with and family regarding diverting colostomy to maximize healing of left hip DU which is so close to the anus on a patient with incontinence and bedridden status due to CVA Objective - Results Result Diagrams: 12/03/16 05:35 12/03/16 05:35 Recent Labs: Laboratory Last Values WBC 9.1 Th/cmm (4.8-10.8) 12/03/16 05:35 Corrected WBC (auto) 8.8 Th/cmm (4.8-10.8) 12/01/16 18:25 RBC 2.94 Mil/cmm (3.80-5.20) L 12/03/16 05:35 Hgb 8.2 gm/dL (12-16) L 12/03/16 05:35 Hct 25.8 % (41.0-60) L D 12/03/16 05:35 MCV 87.6 fl (81-100) 12/03/16 05:35 MCH 27.9 pg (27.0-31.0) 12/03/16 05:35 MCHC Differential 31.8 pg (28.0-36.0) 12/03/16 05:35 RDW 21.4 % (11.5-20.0) H 12/03/16 05:35 Plt Count 91 Th/cmm (150-400) L D 12/03/16 05:35 MPV 14.5 fl 12/03/16 05:35 Neutrophils % 75.5 % (40.0-80.0) 12/02/16 05:05 Band Neutrophils % 15 % (0-10) H 12/03/16 05:35 Lymphocytes % 18.4 % (20.0-50.0) L 12/02/16 05:05 Monocytes % 5.3 % (2.0-10.0) 12/02/16 05:05 Eosinophils % 0.7 % (0.0-5.0) 12/02/16 05:05 Basophils % 0.1 % (0.0-2.0) 12/02/16 05:05 Neutrophils (Manual) 60 % (40-80) 12/03/16 05:35 Lymphocytes 16 % (20-50) L 12/03/16 05:35 Monocytes 6 % (2-10) 12/03/16 05:35 Eosinophils 3 % (0-5) 12/03/16 05:35 Nucleated RBCs 5.0 % (0-0) H 12/01/16 18:25 Atypical Lymphocytes 1 % 12/01/16 18:25 Platelet Estimate DECREASED PLATELETS (NORMAL) 12/03/16 05:35 Platelet Morphology NORMAL (NORMAL) 12/01/16 18:25 Anisocytosis 2+ 12/03/16 05:35 RBC Morph Micro Appear ABNORMAL (NORMAL) 12/01/16 18:25 Eos Smear Source URINE 12/03/16 06:30 Eos Smear Total Cells NONE SEEN (NONE SEEN) 12/03/16 06:30 PT 11.2 SECONDS (9.5-11.5) 12/03/16 05:35 INR 1.08 (0.5-1.4) 12/03/16 05:35 PTT (Actin FS) 19.6 SECONDS (26.0-38.0) L 12/01/16 18:25 Sodium 171 mEq/L (136-145) H* 12/03/16 05:35 Potassium 4.5 mEq/L (3.5-5.1) 12/03/16 05:35 Chloride 144 mEq/L (98-107) H* 12/03/16 05:35 Carbon Dioxide 16.5 mEq/L (21.0-31.0) L 12/03/16 05:35 Anion Gap 15.0 (7.0-16.0) 12/03/16 05:35 BUN 150 mg/dL (7-25) H* 12/03/16 05:35 Creatinine 5.4 mg/dL (0.6-1.2) H* 12/03/16 05:35 Est GFR ( Amer) TNP 12/03/16 05:35 Est GFR (Non-Af Amer) TNP 12/03/16 05:35 BUN/Creatinine Ratio 27.8 12/03/16 05:35 Glucose 330 mg/dL (70-105) H 12/03/16 05:35 POC Glucose 335 MG/DL (70 - 105) H 12/03/16 11:59 Hemoglobin A1c % 9.0 % (4.0-6.0) H 12/01/16 18:25 Whole Bld Lactic Acid 1.48 mmol/L (0.60-1.99) 12/01/16 20:58 Uric Acid 11.6 mg/dL (2.3-6.6) H 12/03/16 05:35 Calcium 10.4 mg/dL (8.6-10.3) H 12/03/16 05:35 Magnesium 2.7 mg/dL (1.9-2.7) 12/03/16 05:35 Total Bilirubin 0.4 mg/dL (0.3-1.0) 12/03/16 05:35 AST 8 U/L (13-39) L 12/03/16 05:35 ALT 11 U/L (7-52) 12/03/16 05:35 Alkaline Phosphatase 60 U/L (34-104) 12/03/16 05:35 Total Protein 5.4 gm/dL (6.0-8.3) L 12/03/16 05:35 Albumin 2.6 gm/dL (3.7-5.3) L 12/03/16 05:35 Globulin 2.8 gm/dL 12/03/16 05:35 Albumin/Globulin Ratio 0.9 (1.0-1.8) L 12/03/16 05:35 TSH 2.49 uIU/ml (0.34-5.60) 12/03/16 05:35 Urine Source SOTO PORT 12/02/16 14:56 Urine Color YELLOW 12/02/16 14:56 Urine Clarity HAZY (CLEAR) 12/02/16 14:56 Urine pH 8.0 (4.6 - 8.0) 12/02/16 14:56 Ur Specific [place] 1.015 (1.005-1.030) 12/02/16 14:56 Urine Protein 100 mg/dL (NEGATIVE) H 12/02/16 14:56 Urine Glucose (UA) 500 mg/dL (NEGATIVE) H 12/02/16 14:56 Urine Ketones NEGATIVE mg/dL (NEGATIVE) 12/02/16 14:56 Urine Blood MODERATE (NEGATIVE) H 12/02/16 14:56 Urine Nitrate POSITIVE (NEGATIVE) H 12/02/16 14:56 Urine Bilirubin NEGATIVE (NEGATIVE) 12/02/16 14:56 Urine Urobilinogen 0.2 E.U./dL (0.2 - 1.0) 12/02/16 14:56 Ur Leukocyte Esterase MODERATE (NEGATIVE) H 12/02/16 14:56 Urine RBC 5-10 /hpf (0-5) H 12/02/16 14:56 Urine WBC 50-100 /hpf (0-5) H 12/02/16 14:56 Ur Epithelial Cells FEW /lpf (FEW) 12/02/16 14:56 Triple Phos Crystals MODERATE /hpf (FEW) 12/02/16 14:56 Urine Bacteria MANY /hpf (NONE SEEN) 12/02/16 14:56 Ur Random Sodium 75 mmol/L 12/03/16 06:30 Urine Creatinine 49.0 mg/dl (28.0-217.0) 12/03/16 06:30 Blood Type O POSITIVE 12/02/16 05:05 Antibody Screen NEGATIVE 12/02/16 05:05 - Physical Exam Vitals and I&O: Vital Signs Temp 98.0 F 12/03/16 04:00 Pulse 59 12/03/16 04:00 Resp 17 12/03/16 04:00 BP 144/70 12/03/16 04:00 Pulse Ox 97 12/03/16 04:00 Intake & Output 12/02/16 12/03/16 12/03/16 18:59 06:59 18:59 Intake Total 1608 392 Output Total 550 Balance 1058 392 Weight (lbs) 44.906 kg Intake: Intake, IV Amount 1608 392 D5-0.45NS 1,000 ml @ 120 1608 392 mls/hr IV .Q8H20M [facility] Rx# :[id number] Oral 0 Output: Urine 550 Active Medications: Current Medications Acetaminophen (Tylenol) 650 mg PO Q6H PRN PRN Reason: Pain or Fever >101 Stop: 01/31/17 11:18 Bisacodyl (Dulcolax 5 Mg Ec Tab) 10 mg PO BID [facility] Stop: 01/31/17 16:59 Last Admin: 12/03/16 11:07 Dose: 10 mg Epoetin Esequiel (Epogen) 10,000 units SUBQ TuThSa [facility] Stop: 02/01/17 14:29 Dextrose (D5w) 1,000 mls @ 125 mls/hr IV .Q8H [facility] Stop: 02/01/17 14:14 Insulin Aspart (Novolog Insulin Sliding Scale) 0 units SUBQ ACHS BRIELLE PRN Reason: Protocol Stop: 01/31/17 07:29 Last Admin: 12/03/16 12:32 Dose: 9 units Miscellaneous (Vte Chemical Prophylaxis Screen/ Admission) 1 ea [facility] PRN PRN PRN Reason: PROTOCOL Stop: 01/31/17 13:38 Pantoprazole Sodium (Protonix) 40 mg IVP DAILY [facility] Stop: 02/01/17 08:59 Last Admin: 12/03/16 11:07 Dose: 40 mg Sodium Bicarbonate (Sodium Bicarbonate) 650 mg PO BID BRIELLE PRN Reason: Protocol Stop: 01/31/17 16:59 Last Admin: 12/03/16 11:07 Dose: 650 mg General: No acute distress, Other (Sedated, post surgery.) HEENT: Atraumatic, Mucous membr. moist/pink Neck: Supple, +2 carotid pulse wo bruit Cardiovascular: Regular rate, Normal S1, Normal S2 Lungs: Clear to auscultation Abdomen: Bowel sounds, Soft, Other (PEG in place.) Extremities: Other (No edema), no Edema Neurological: Sensation intact, Other (Non ambulatory) Skin: Other (Decubit sacral ulcer stage IV), no Significant lesion Psych/Mental Status: Mood NL, Other (Sedated, post surgery) - Procedures Procedures: Procedures Procedure Code Date CHAGO MUSC/FASCIA 20 SQ CM/< 18905 10/24/16 EXCISION OF LEFT HIP MUSCLE, OPEN APPROACH [id number] 10/24/16 Assessment/Plan - Problem List Patient Problems: All Active Problems POOR ORAL INTAKE AND SWALLOWING (Acute) SACRAL AND BILATERAL BUTTOCK SKIN ULCERS (Acute) Nutritional Asmnt/Malnutr-PDOC - Dietary Evaluation Malnutrition Findings (Please click <Entered> for more info): Nutritional Asmnt/Malnutrition Start: 12/02/16 14: 44 Text: Status: Complete Freq: Document 12/02/16 14:44 GSUN (Rec: 12/02/16 15:19 [facility] Nutritional Asmnt/Malnutrition Patient General Information Nutritional Screening Consult Diagnosis AKF, sacral decubitus ulcer stage IV, HTN, DM, dementia, chronic anemia Pertinent Medical Hx/Surgical Hx CAD, CVA, dementia, psychosis, muscle atrophy, AKF, DM, decubitus ulcer stage IV Subjective Information 81 year old female from SNF. RD consult for low Elliot and elevated blood glucose. Pt was awake, unable to provide nutrition hx. Family at bedside, spoke to family and RN Loren regarding nutrition plan of care, PEG placement consent obtained. Family has no other questions at this time. 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 Per nursing adm notes , 4-5lb wt loss in 2 weeks. Per family, unaware of UBW, aware of recent wt loss, stated pt stopped eating ~3-4 days ago. Loose skin, moderate to severe muslce fat wasting to chest and clavicles. Current Diet Order/ Nutrition Support NPO Pertinent Medications Dulcolax, D5-0.45ns, Novolog Pertinent Labs 12/01: A1c 9H 12/02: sodium 173H, potassium 5.3H, BUN 169H, creatinie 5.8H , glucose 238H, calcium 10.8H Nutritional Hx/Data Height 1.52 m Height (Calculated Centimeters) 152.4 Current Weight (lbs) 43.545 kg Weight (Calculated Kilograms) 43.5 Weight (Calculated Grams) 17314.9 [place] Body Weight 100 Recent Weight Change Yes Weight Status Approriate GI Symptoms Usual diet at home [facility]: pureed, ALISE , [facility] Skin Integrity/Comment: Elliot 11. Sacral decubitus ulcer stage IV. Estimated Nutritional Goals Calories/Kcals/Kg IBW 100lb/45.5kg Kcals Calculated 1365-1593kcal (30-35kcal/kg) Protein Calculated 68-73g (1.4-1.6g/kg, ulcer vs renal, ?HD) Fluid: ml Per MD Nutritional Problem 3. Problem Problem Altered nutrition related laboratory values related to Etiology DM aeb Signs/Symptoms: A1c 9H, glucose 238H 2. Problem Problem Increased kcal and prot needs related to Etiology skin integrity, recent weight loss aeb Signs/Symptoms: Sacral decubitus ulcer stage IV, wt loss 4-5lb in 2 weeks per nursing adm notes, moderate to seevre muslce/fat wasting to chest and clavicles 1. Problem Problem Impaired nutrient utilization related to Etiology acute kidney injury aeb Signs/Symptoms: potassium 5.3H, BUN 169H, creatinie 5.8H, calcium 10.8H Intervention/Recommendation Comments 1. Discussed enteral nutrition with family. Family has no further questions at this time . 2. When medically feasible to initiate feeding, recommend Novasource Renal at 30ml/hr x 24hrs, providing 720ml total volume, 1440kcal, 65g protein. Initiate at 10ml/hr for first 24 hrs, monitor for refeeding syndrome and tolerance, increase by 5ml/hr q12hrs until goal. 3. Recommend 1 packet Arginaid daily via tube for wound healing. 4. Monitor weight closely. Hx 4-5lb wt loss in 2 weeks per nursing adm note. Expected Outcomes/Goals Expected Outcomes/Goals 1. Pt to meet at least 75% of estimated nutritinoal eneds on tube feeding with tolerance.
--- NOTE | 2016-12-03 15:44 | General Progress Note ---
Subjective - Review of Systems Service Date: 12/03/16 Events since last encounter: discussed with and family regarding diverting colostomy to maximize healing of left hip DU which is so close to the anus on a patient with incontinence and bedridden status due to CVA Objective - Results Result Diagrams: 12/03/16 05:35 12/03/16 05:35 Recent Labs: Laboratory Last Values WBC 9.1 Th/cmm (4.8-10.8) 12/03/16 05:35 Corrected WBC (auto) 8.8 Th/cmm (4.8-10.8) 12/01/16 18:25 RBC 2.94 Mil/cmm (3.80-5.20) L 12/03/16 05:35 Hgb 8.2 gm/dL (12-16) L 12/03/16 05:35 Hct 25.8 % (41.0-60) L D 12/03/16 05:35 MCV 87.6 fl (81-100) 12/03/16 05:35 MCH 27.9 pg (27.0-31.0) 12/03/16 05:35 MCHC Differential 31.8 pg (28.0-36.0) 12/03/16 05:35 RDW 21.4 % (11.5-20.0) H 12/03/16 05:35 Plt Count 91 Th/cmm (150-400) L D 12/03/16 05:35 MPV 14.5 fl 12/03/16 05:35 Neutrophils % 75.5 % (40.0-80.0) 12/02/16 05:05 Band Neutrophils % 15 % (0-10) H 12/03/16 05:35 Lymphocytes % 18.4 % (20.0-50.0) L 12/02/16 05:05 Monocytes % 5.3 % (2.0-10.0) 12/02/16 05:05 Eosinophils % 0.7 % (0.0-5.0) 12/02/16 05:05 Basophils % 0.1 % (0.0-2.0) 12/02/16 05:05 Neutrophils (Manual) 60 % (40-80) 12/03/16 05:35 Lymphocytes 16 % (20-50) L 12/03/16 05:35 Monocytes 6 % (2-10) 12/03/16 05:35 Eosinophils 3 % (0-5) 12/03/16 05:35 Nucleated RBCs 5.0 % (0-0) H 12/01/16 18:25 Atypical Lymphocytes 1 % 12/01/16 18:25 Platelet Estimate DECREASED PLATELETS (NORMAL) 12/03/16 05:35 Platelet Morphology NORMAL (NORMAL) 12/01/16 18:25 Anisocytosis 2+ 12/03/16 05:35 RBC Morph Micro Appear ABNORMAL (NORMAL) 12/01/16 18:25 Eos Smear Source URINE 12/03/16 06:30 Eos Smear Total Cells NONE SEEN (NONE SEEN) 12/03/16 06:30 PT 11.2 SECONDS (9.5-11.5) 12/03/16 05:35 INR 1.08 (0.5-1.4) 12/03/16 05:35 PTT (Actin FS) 19.6 SECONDS (26.0-38.0) L 12/01/16 18:25 Sodium 171 mEq/L (136-145) H* 12/03/16 05:35 Potassium 4.5 mEq/L (3.5-5.1) 12/03/16 05:35 Chloride 144 mEq/L (98-107) H* 12/03/16 05:35 Carbon Dioxide 16.5 mEq/L (21.0-31.0) L 12/03/16 05:35 Anion Gap 15.0 (7.0-16.0) 12/03/16 05:35 BUN 150 mg/dL (7-25) H* 12/03/16 05:35 Creatinine 5.4 mg/dL (0.6-1.2) H* 12/03/16 05:35 Est GFR ( Amer) TNP 12/03/16 05:35 Est GFR (Non-Af Amer) TNP 12/03/16 05:35 BUN/Creatinine Ratio 27.8 12/03/16 05:35 Glucose 330 mg/dL (70-105) H 12/03/16 05:35 POC Glucose 335 MG/DL (70 - 105) H 12/03/16 11:59 Hemoglobin A1c % 9.0 % (4.0-6.0) H 12/01/16 18:25 Whole Bld Lactic Acid 1.48 mmol/L (0.60-1.99) 12/01/16 20:58 Uric Acid 11.6 mg/dL (2.3-6.6) H 12/03/16 05:35 Calcium 10.4 mg/dL (8.6-10.3) H 12/03/16 05:35 Magnesium 2.7 mg/dL (1.9-2.7) 12/03/16 05:35 Total Bilirubin 0.4 mg/dL (0.3-1.0) 12/03/16 05:35 AST 8 U/L (13-39) L 12/03/16 05:35 ALT 11 U/L (7-52) 12/03/16 05:35 Alkaline Phosphatase 60 U/L (34-104) 12/03/16 05:35 Total Protein 5.4 gm/dL (6.0-8.3) L 12/03/16 05:35 Albumin 2.6 gm/dL (3.7-5.3) L 12/03/16 05:35 Globulin 2.8 gm/dL 12/03/16 05:35 Albumin/Globulin Ratio 0.9 (1.0-1.8) L 12/03/16 05:35 TSH 2.49 uIU/ml (0.34-5.60) 12/03/16 05:35 Urine Source SOTO [place] 12/02/16 14:56 Urine Color YELLOW 12/02/16 14:56 Urine Clarity HAZY (CLEAR) 12/02/16 14:56 Urine pH 8.0 (4.6 - 8.0) 12/02/16 14:56 Ur Specific [place] 1.015 (1.005-1.030) 12/02/16 14:56 Urine Protein 100 mg/dL (NEGATIVE) H 12/02/16 14:56 Urine Glucose (UA) 500 mg/dL (NEGATIVE) H 12/02/16 14:56 Urine Ketones NEGATIVE mg/dL (NEGATIVE) 12/02/16 14:56 Urine Blood MODERATE (NEGATIVE) H 12/02/16 14:56 Urine Nitrate POSITIVE (NEGATIVE) H 12/02/16 14:56 Urine Bilirubin NEGATIVE (NEGATIVE) 12/02/16 14:56 Urine Urobilinogen 0.2 E.U./dL (0.2 - 1.0) 12/02/16 14:56 Ur Leukocyte Esterase MODERATE (NEGATIVE) H 12/02/16 14:56 Urine RBC 5-10 /hpf (0-5) H 12/02/16 14:56 Urine WBC 50-100 /hpf (0-5) H 12/02/16 14:56 Ur Epithelial Cells FEW /lpf (FEW) 12/02/16 14:56 Triple Phos Crystals MODERATE /hpf (FEW) 12/02/16 14:56 Urine Bacteria MANY /hpf (NONE SEEN) 12/02/16 14:56 Ur Random Sodium 75 mmol/L 12/03/16 06:30 Urine Creatinine 49.0 mg/dl (28.0-217.0) 12/03/16 06:30 Blood Type O POSITIVE 12/02/16 05:05 Antibody Screen NEGATIVE 12/02/16 05:05 - Physical Exam Vitals and I&O: Vital Signs Temp 98.0 F 12/03/16 04:00 Pulse 59 12/03/16 04:00 Resp 17 12/03/16 04:00 BP 144/70 12/03/16 04:00 Pulse Ox 97 12/03/16 04:00 Intake & Output 12/02/16 12/03/16 12/03/16 18:59 06:59 18:59 Intake Total 1608 392 Output Total 550 Balance 1058 392 Weight (lbs) 44.906 kg Intake: Intake, IV Amount 1608 392 D5-0.45NS 1,000 ml @ 120 1608 392 mls/hr IV .Q8H20M [facility] Rx# :[id number] Oral 0 Output: Urine 550 Active Medications: Current Medications Acetaminophen (Tylenol) 650 mg PO Q6H PRN PRN Reason: Pain or Fever >101 Stop: 01/31/17 11:18 Bisacodyl (Dulcolax 5 Mg Ec Tab) 10 mg PO BID [facility] Stop: 01/31/17 16:59 Last Admin: 12/03/16 11:07 Dose: 10 mg Epoetin Esequiel (Epogen) 10,000 units SUBQ TuThSa [facility] Stop: 02/01/17 14:29 Dextrose (D5w) 1,000 mls @ 125 mls/hr IV .Q8H [facility] Stop: 02/01/17 14:14 Insulin Aspart (Novolog Insulin Sliding Scale) 0 units SUBQ ACHS BRIELLE PRN Reason: Protocol Stop: 01/31/17 07:29 Last Admin: 12/03/16 12:32 Dose: 9 units Miscellaneous (Vte Chemical Prophylaxis Screen/ Admission) 1 ea [facility] PRN PRN PRN Reason: PROTOCOL Stop: 01/31/17 13:38 Pantoprazole Sodium (Protonix) 40 mg IVP DAILY [facility] Stop: 02/01/17 08:59 Last Admin: 12/03/16 11:07 Dose: 40 mg Sodium Bicarbonate (Sodium Bicarbonate) 650 mg PO BID BRIELLE PRN Reason: Protocol Stop: 01/31/17 16:59 Last Admin: 12/03/16 11:07 Dose: 650 mg General: No acute distress, Other (Sedated, post surgery.) HEENT: Atraumatic, Mucous membr. moist/pink Neck: Supple, +2 carotid pulse wo bruit Cardiovascular: Regular rate, Normal S1, Normal S2 Lungs: Clear to auscultation Abdomen: Bowel sounds, Soft, Other (PEG in place.) Extremities: Other (No edema), no Edema Neurological: Sensation intact, Other (Non ambulatory) Skin: Other (Decubit sacral ulcer stage IV), no Significant lesion Psych/Mental Status: Mood NL, Other (Sedated, post surgery) - Procedures Procedures: Procedures Procedure Code Date CHAGO MUSC/FASCIA 20 SQ CM/< 81357 10/24/16 EXCISION OF LEFT HIP MUSCLE, OPEN APPROACH [id number] 10/24/16 Assessment/Plan - Problem List Patient Problems: All Active Problems POOR ORAL INTAKE AND SWALLOWING (Acute) SACRAL AND BILATERAL BUTTOCK SKIN ULCERS (Acute) Nutritional Asmnt/Malnutr-PDOC - Dietary Evaluation Malnutrition Findings (Please click <Entered> for more info): Nutritional Asmnt/Malnutrition Start: 12/02/16 14: 44 Text: Status: Complete Freq: Document 12/02/16 14:44 GSUN (Rec: 12/02/16 15:19 [facility]JAI [facility] Nutritional Asmnt/Malnutrition Patient General Information Nutritional Screening Consult Diagnosis AKF, sacral decubitus ulcer stage IV, HTN, DM, dementia, chronic anemia Pertinent Medical Hx/Surgical Hx CAD, CVA, dementia, psychosis, muscle atrophy, AKF, DM, decubitus ulcer stage IV Subjective Information 81 year old female from SNF. RD consult for low Elliot and elevated blood glucose. Pt was awake, unable to provide nutrition hx. Family at bedside, spoke to family and RN Loren regarding nutrition plan of care, PEG placement consent obtained. Family has no other questions at this time. 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 Per nursing adm notes , 4-5lb wt loss in 2 weeks. Per family, unaware of UBW, aware of recent wt loss, stated pt stopped eating ~3-4 days ago. Loose skin, moderate to severe muslce fat wasting to chest and clavicles. Current Diet Order/ Nutrition Support NPO Pertinent Medications Dulcolax, D5-0.45ns, Novolog Pertinent Labs 12/01: A1c 9H 12/02: sodium 173H, potassium 5.3H, BUN 169H, creatinie 5.8H , glucose 238H, calcium 10.8H Nutritional Hx/Data Height 1.52 m Height (Calculated Centimeters) 152.4 Current Weight (lbs) 43.545 kg Weight (Calculated Kilograms) 43.5 Weight (Calculated Grams) 73333.9 [place] Body Weight 100 Recent Weight Change Yes Weight Status Approriate GI Symptoms Usual diet at home [facility] Skin Integrity/Comment: Elliot 11. Sacral decubitus ulcer stage IV. Estimated Nutritional Goals Calories/Kcals/Kg IBW 100lb/45.5kg Kcals Calculated 1365-1593kcal (30-35kcal/kg) Protein Calculated 68-73g (1.4-1.6g/kg, ulcer vs renal, ?HD) Fluid: ml Per MD Nutritional Problem 3. Problem Problem Altered nutrition related laboratory values related to Etiology DM aeb Signs/Symptoms: A1c 9H, glucose 238H 2. Problem Problem Increased kcal and prot needs related to Etiology skin integrity, recent weight loss aeb Signs/Symptoms: Sacral decubitus ulcer stage IV, wt loss 4-5lb in 2 weeks per nursing adm notes, moderate to seevre muslce/fat wasting to chest and clavicles 1. Problem Problem Impaired nutrient utilization related to Etiology acute kidney injury aeb Signs/Symptoms: potassium 5.3H, BUN 169H, creatinie 5.8H, calcium 10.8H Intervention/Recommendation Comments 1. Discussed enteral nutrition with family. Family has no further questions at this time . 2. When medically feasible to initiate feeding, recommend Novasource Renal at 30ml/hr x 24hrs, providing 720ml total volume, 1440kcal, 65g protein. Initiate at 10ml/hr for first 24 hrs, monitor for refeeding syndrome and tolerance, increase by 5ml/hr q12hrs until goal. 3. Recommend 1 packet Arginaid daily via tube for wound healing. 4. Monitor weight closely. Hx 4-5lb wt loss in 2 weeks per nursing adm note. Expected Outcomes/Goals Expected Outcomes/Goals 1. Pt to meet at least 75% of estimated nutritinoal eneds on tube feeding with tolerance.
[2016-12-03] MEDS: Epoetin Alfa 20000 Units/mL Vial SUBQ SCH (16:01)
--- NOTE | 2016-12-03 17:31 | Consultation ---
DATE OF CONSULTATION: 12/02/2016 ATTENDING: Dr. Damian La. HOME HEALTH CARE PHYSICIAN: Omid Villa M.D. REASON FOR CONSULTATION: Worsening kidney function, electrolyte imbalance, and fluid management. HISTORY OF PRESENT ILLNESS: This is an 81-year-old female with past medical history of chronic kidney disease, who was brought in because of failure to thrive. Two weeks prior to admission, the patient refused to eat, drink as well as take her medications. She gradually became weak along with decrease in mentation. A few hours prior to admission, she was very stuporous. Family agreed with placement of G-tube and she was brought to the Emergency Room. There was no history of nausea and vomiting, no diarrhea. PAST MEDICAL HISTORY: 1. Chronic kidney disease. 2. Alzheimer dementia. 3. Chronic left foot and sacral decubitus ulcers. 4. Type 2 diabetes mellitus. 5. Essential hypertension. CURRENT MEDICATIONS: She is currently on acetaminophen, cefazolin, bisacodyl, Captopril, clonidine, heparin, aspart. ALLERGIES: No known drug allergies. SOCIAL AND FAMILY HISTORY: I was not able to obtain directly from the patient because she is currently obtunded. REVIEW OF SYSTEMS: I was not able to also decipher directly from the patient because of her depressed mental status. PHYSICAL EXAMINATION: GENERAL: The patient remains obtunded. However, she is not in any form of distress. VITAL SIGNS: Her blood pressure is 125/72, pulse 103, temperature 97.6 degrees. SKIN: Poor turgor, warm. No rash, no jaundice appreciated. HEENT: Head normocephalic/atraumatic. Eyes: Unable to assess her extraocular muscles. Pupils are equal, round, reactive to light and accommodates. Anicteric sclerae. Pale conjunctivae. Nose, midline nasal septum. Mouth, very dry mucosa with poor dentition. NECK: Supple. No adenopathy, no thyromegaly, no bruits. Trachea palpated in the midline. CHEST AND CARDIOVASCULAR: S1, S2. No rub, murmur nor gallop appreciated. Point of maximal impulse fifth intercostal space, left midclavicular line. No abdominal or femoral bruits appreciated. LUNGS: Equal expansion. No use of accessory muscles. No supraclavicular retractions. Decreased breath sounds, few rhonchi, but no rales nor wheezes appreciated. BREAST: Symmetrical without any discharge. ABDOMEN: Flat, soft. Positive for bowel sounds. No bruits either diastolic or systolic. RECTAL: Deferred. GENITOURINARY: Normal appearing female genitalia. MUSCULOSKELETAL: No effusions present in her joints, but unable to assess her range of motion. EXTREMITIES: No evidence of edema, cyanosis nor clubbing with palpable femoral, popliteal, and dorsalis pedis pulses. NEUROLOGIC: As mentioned, the patient is obtunded, so I was not able to pursue further my neuro exam. LABORATORY DATA: Labs revealed a white count 11.2, hemoglobin 9.7, hematocrit 30.3, platelets 115. Sodium 173, potassium 5.3, chloride 144, bicarb is 14.6, BUN is 169, creatinine is 5.8, glucose is 238, A1c is , calcium is 10.8, albumin is 2.9. TSH 1.83. IMPRESSION: 1. Acute kidney injury on chronic kidney disease stage 5. Chronic kidney disease is secondary to diabetic nephropathy with longstanding history of diabetes and underlying hypertensive nephrosclerosis. Acute kidney injury is initially due to prerenal azotemia. The patient had history of no oral intake for 2 weeks. She was not able to replace both sensible and insensible fluid losses and developed dehydration. Her prerenal azotemia progressed to acute tubular injury. 2. Severe dehydration secondary to failure to thrive. 3. Failure to thrive. 4. Anemia of chronic kidney disease. 5. Metabolic (uremic) encephalopathy. 6. Moderate malnutrition. 7. Left sacral decubitus and left foot ulcers. 8. Type 2 diabetes mellitus. 9. Essential hypertension. PLAN: 1. Urinalysis, urine spot sodium, eosinophils and creatinine. 2. Renal ultrasound. 3. Urine microalbumin to creatinine ratio. 4. Started feeding the patient because of severely malnourished. 5. Discontinue captopril. 6. Start sodium bicarbonate. 7. If above intervention fails, then consider dialysis. JOB# [id number]
[2016-12-03] MEDS: Dextrose 5% 1,000 ML IV SCH (19:46)
[2016-12-04] MEDS: Dextrose 5% 1,000 ML IV SCH ×2 (03:02→11:49)
[2016-12-04 05:19] LABS: HEMATOCRIT 24.1 % (41.0-60); MEAN CELL VOLUME 87.6 fl (81-100); MEAN CORPUSCULAR HEMOGLOBIN 28.5 pg (27.0-31.0); MEAN CORPUSCULAR HGB CONC 32.6 pg (28.0-36.0); MEAN PLATELET VOLUME 14.6 fl; PLATELET COUNT 74 Th/cmm (150-400); RED BLOOD COUNT 2.75 Mil/cmm (3.80-5.20); WHITE BLOOD COUNT 7.7 Th/cmm (4.8-10.8)
[2016-12-04 05:45] LABS: ALB/GLOB RATIO 0.9 (1.0-1.8); ALBUMIN 2.4 gm/dL (3.7-5.3); ALKALINE PHOSPHATASE 74 U/L (34-104); ANION GAP 14.7 (7.0-16.0); BILIRUBIN,TOTAL 0.5 mg/dL (0.3-1.0); CALCIUM SERUM 9.7 mg/dL (8.6-10.3); CARBON DIOXIDE 14.2 mEq/L (21.0-31.0); CHLORIDE 135 mEq/L (98-107); GLUCOSE 425 mg/dL (70-105); POTASSIUM SERUM 3.9 mEq/L (3.5-5.1); SGOT 28 U/L (13-39); SGPT/ALT 12 U/L (7-52); TOTAL PROTEIN,SERUM 5.2 gm/dL (6.0-8.3)
[2016-12-04 06:15] LABS: HEMOGLOBIN 7.9 gm/dL (12-16); MANUAL DIFF REQUIRED? YES
[2016-12-04 06:19] LABS: TOTAL CELLS COUNTED 100
[2016-12-04 06:20] LABS: BAND NEUTROPHILE 8 % (0-10); LYMPHOCYTE 10 % (20-50); MONOCYTE 5 % (2-10); NEUTROPHILS 77 % (40-80); PLATELET ESTIMATE SLIGHT DECREASED (NORMAL)
[2016-12-04 06:30] LABS: SODIUM SERUM 160 mEq/L (136-145)
[2016-12-04 06:31] LABS: BUN - UREA NITROGEN 121 mg/dL (7-25)
[2016-12-04 06:32] LABS: CREATININE - SERUM 4.5 mg/dL (0.6-1.2)
[2016-12-04] MEDS: INSULIN ASPART SLIDING SCALE 100 UNITS/ML UNIT SUBQ SCH ×4 (07:05→20:43)
--- NOTE | 2016-12-04 09:09 | GI Progress Note ---
Subjective - Review of Systems Subjective: NO EVENTS Objective - Results Result Diagrams: 12/04/16 04:50 12/04/16 04:50 Recent Labs: Laboratory Last Values WBC 7.7 Th/cmm (4.8-10.8) 12/04/16 04:50 Corrected WBC (auto) 8.8 Th/cmm (4.8-10.8) 12/01/16 18:25 RBC 2.75 Mil/cmm (3.80-5.20) L 12/04/16 04:50 Hgb 7.9 gm/dL (12-16) L* 12/04/16 04:50 Hct 24.1 % (41.0-60) L 12/04/16 04:50 MCV 87.6 fl (81-100) 12/04/16 04:50 MCH 28.5 pg (27.0-31.0) 12/04/16 04:50 MCHC Differential 32.6 pg (28.0-36.0) 12/04/16 04:50 RDW 21.0 % (11.5-20.0) H 12/04/16 04:50 Plt Count 74 Th/cmm (150-400) L 12/04/16 04:50 MPV 14.6 fl 12/04/16 04:50 Neutrophils % 75.5 % (40.0-80.0) 12/02/16 05:05 Band Neutrophils % 8 % (0-10) 12/04/16 04:50 Lymphocytes % 18.4 % (20.0-50.0) L 12/02/16 05:05 Monocytes % 5.3 % (2.0-10.0) 12/02/16 05:05 Eosinophils % 0.7 % (0.0-5.0) 12/02/16 05:05 Basophils % 0.1 % (0.0-2.0) 12/02/16 05:05 Neutrophils (Manual) 77 % (40-80) 12/04/16 04:50 Lymphocytes 10 % (20-50) L 12/04/16 04:50 Monocytes 5 % (2-10) 12/04/16 04:50 Eosinophils 3 % (0-5) 12/03/16 05:35 Nucleated RBCs 5.0 % (0-0) H 12/01/16 18:25 Atypical Lymphocytes 1 % 12/01/16 18:25 Platelet Estimate SLIGHT DECREASED (NORMAL) 12/04/16 04:50 Platelet Morphology NORMAL (NORMAL) 12/01/16 18:25 Anisocytosis 2+ 12/03/16 05:35 RBC Morph Micro Appear ABNORMAL (NORMAL) 12/01/16 18:25 Eos Smear Source URINE 12/03/16 06:30 Eos Smear Total Cells NONE SEEN (NONE SEEN) 12/03/16 06:30 PT 11.2 SECONDS (9.5-11.5) 12/03/16 05:35 INR 1.08 (0.5-1.4) 12/03/16 05:35 PTT (Actin FS) 19.6 SECONDS (26.0-38.0) L 12/01/16 18:25 Sodium 160 mEq/L (136-145) H* 12/04/16 04:50 Potassium 3.9 mEq/L (3.5-5.1) 12/04/16 04:50 Chloride 135 mEq/L (98-107) H 12/04/16 04:50 Carbon Dioxide 14.2 mEq/L (21.0-31.0) L 12/04/16 04:50 Anion Gap 14.7 (7.0-16.0) 12/04/16 04:50 BUN 121 mg/dL (7-25) H* 12/04/16 04:50 Creatinine 4.5 mg/dL (0.6-1.2) H* 12/04/16 04:50 Est GFR ( Amer) TNP 12/04/16 04:50 Est GFR (Non-Af Amer) TNP 12/04/16 04:50 BUN/Creatinine Ratio 26.9 12/04/16 04:50 Glucose 425 mg/dL (70-105) H 12/04/16 04:50 POC Glucose 394 MG/DL (70 - 105) H 12/04/16 06:05 Hemoglobin A1c % 9.0 % (4.0-6.0) H 12/01/16 18:25 Whole Bld Lactic Acid 1.48 mmol/L (0.60-1.99) 12/01/16 20:58 Uric Acid 11.6 mg/dL (2.3-6.6) H 12/03/16 05:35 Calcium 9.7 mg/dL (8.6-10.3) 12/04/16 04:50 Magnesium 2.7 mg/dL (1.9-2.7) 12/03/16 05:35 Total Bilirubin 0.5 mg/dL (0.3-1.0) 12/04/16 04:50 AST 28 U/L (13-39) 12/04/16 04:50 ALT 12 U/L (7-52) 12/04/16 04:50 Alkaline Phosphatase 74 U/L (34-104) 12/04/16 04:50 Total Protein 5.2 gm/dL (6.0-8.3) L 12/04/16 04:50 Albumin 2.4 gm/dL (3.7-5.3) L 12/04/16 04:50 Globulin 2.8 gm/dL 12/04/16 04:50 Albumin/Globulin Ratio 0.9 (1.0-1.8) L 12/04/16 04:50 TSH 2.49 uIU/ml (0.34-5.60) 12/03/16 05:35 Urine Source SOTO PORT 12/02/16 14:56 Urine Color YELLOW 12/02/16 14:56 Urine Clarity HAZY (CLEAR) 12/02/16 14:56 Urine pH 8.0 (4.6 - 8.0) 12/02/16 14:56 Ur Specific [place] 1.015 (1.005-1.030) 12/02/16 14:56 Urine Protein 100 mg/dL (NEGATIVE) H 12/02/16 14:56 Urine Glucose (UA) 500 mg/dL (NEGATIVE) H 12/02/16 14:56 Urine Ketones NEGATIVE mg/dL (NEGATIVE) 12/02/16 14:56 Urine Blood MODERATE (NEGATIVE) H 12/02/16 14:56 Urine Nitrate POSITIVE (NEGATIVE) H 12/02/16 14:56 Urine Bilirubin NEGATIVE (NEGATIVE) 12/02/16 14:56 Urine Urobilinogen 0.2 E.U./dL (0.2 - 1.0) 12/02/16 14:56 Ur Leukocyte Esterase MODERATE (NEGATIVE) H 12/02/16 14:56 Urine RBC 5-10 /hpf (0-5) H 12/02/16 14:56 Urine WBC 50-100 /hpf (0-5) H 12/02/16 14:56 Ur Epithelial Cells FEW /lpf (FEW) 12/02/16 14:56 Triple Phos Crystals MODERATE /hpf (FEW) 12/02/16 14:56 Urine Bacteria MANY /hpf (NONE SEEN) 12/02/16 14:56 Ur Random Sodium 75 mmol/L 12/03/16 06:30 Urine Creatinine 49.0 mg/dl (28.0-217.0) 12/03/16 06:30 Blood Type O POSITIVE 12/02/16 05:05 Antibody Screen NEGATIVE 12/02/16 05:05 - Physical Exam Vitals and I&O: Vital Signs Temp 97.7 F 12/04/16 08:00 Pulse 103 12/04/16 08:00 Resp 20 12/04/16 08:00 BP 140/55 12/04/16 08:00 Pulse Ox 100 12/04/16 08:00 Intake & Output 12/03/16 12/04/16 12/04/16 18:59 06:59 18:59 Intake Total 392 908.333 Output Total 700 Balance 392 208.333 Weight (lbs) 55.338 kg Intake: Intake, IV Amount 392 908.333 D5-0.45NS 1,000 ml @ 120 392 mls/hr IV .Q8H20M [facility] Rx# :[id number] Dextrose 5% 1,000 ml @ 908.333 125 mls/hr IV .Q8H [facility] Rx #:[id number] Output: Urine 700 Active Medications: Current Medications Acetaminophen (Tylenol) 650 mg PO Q6H PRN PRN Reason: Pain or Fever >101 Stop: 01/31/17 11:18 Bisacodyl (Dulcolax 5 Mg Ec Tab) 10 mg PO BID [facility] Stop: 01/31/17 16:59 Last Admin: 12/03/16 16:52 Dose: 10 mg Epoetin Esequiel (Epogen) 10,000 units SUBQ TuThSa [facility] Stop: 02/01/17 14:29 Last Admin: 12/03/16 16:01 Dose: 10,000 units Dextrose (D5w) 1,000 mls @ 125 mls/hr IV .Q8H [facility] Stop: 02/01/17 14:14 Last Admin: 12/04/16 03:02 Dose: 125 mls/hr Insulin Aspart (Novolog Insulin Sliding Scale) 0 units SUBQ ACHS [facility] PRN Reason: Protocol Stop: 01/31/17 07:29 Last Admin: 12/04/16 07:05 Dose: 11 units Miscellaneous (Vte Chemical Prophylaxis Screen/ Admission) 1 ea [facility] PRN PRN PRN Reason: PROTOCOL Stop: 01/31/17 13:38 Pantoprazole Sodium (Protonix) 40 mg IVP DAILY [facility] Stop: 02/01/17 08:59 Last Admin: 12/03/16 11:07 Dose: 40 mg Sodium Bicarbonate (Sodium Bicarbonate) 650 mg PO BID [facility] PRN Reason: Protocol Stop: 01/31/17 16:59 Last Admin: 12/03/16 16:52 Dose: 650 mg General: No acute distress, Other (Sedated, post surgery.) HEENT: Atraumatic, Mucous membr. 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
--- NOTE | 2016-12-04 09:09 | GI Progress Note ---
Subjective - Review of Systems Subjective: NO EVENTS Objective - Results Result Diagrams: 12/04/16 04:50 12/04/16 04:50 Recent Labs: Laboratory Last Values WBC 7.7 Th/cmm (4.8-10.8) 12/04/16 04:50 Corrected WBC (auto) 8.8 Th/cmm (4.8-10.8) 12/01/16 18:25 RBC 2.75 Mil/cmm (3.80-5.20) L 12/04/16 04:50 Hgb 7.9 gm/dL (12-16) L* 12/04/16 04:50 Hct 24.1 % (41.0-60) L 12/04/16 04:50 MCV 87.6 fl (81-100) 12/04/16 04:50 MCH 28.5 pg (27.0-31.0) 12/04/16 04:50 MCHC Differential 32.6 pg (28.0-36.0) 12/04/16 04:50 RDW 21.0 % (11.5-20.0) H 12/04/16 04:50 Plt Count 74 Th/cmm (150-400) L 12/04/16 04:50 MPV 14.6 fl 12/04/16 04:50 Neutrophils % 75.5 % (40.0-80.0) 12/02/16 05:05 Band Neutrophils % 8 % (0-10) 12/04/16 04:50 Lymphocytes % 18.4 % (20.0-50.0) L 12/02/16 05:05 Monocytes % 5.3 % (2.0-10.0) 12/02/16 05:05 Eosinophils % 0.7 % (0.0-5.0) 12/02/16 05:05 Basophils % 0.1 % (0.0-2.0) 12/02/16 05:05 Neutrophils (Manual) 77 % (40-80) 12/04/16 04:50 Lymphocytes 10 % (20-50) L 12/04/16 04:50 Monocytes 5 % (2-10) 12/04/16 04:50 Eosinophils 3 % (0-5) 12/03/16 05:35 Nucleated RBCs 5.0 % (0-0) H 12/01/16 18:25 Atypical Lymphocytes 1 % 12/01/16 18:25 Platelet Estimate SLIGHT DECREASED (NORMAL) 12/04/16 04:50 Platelet Morphology NORMAL (NORMAL) 12/01/16 18:25 Anisocytosis 2+ 12/03/16 05:35 RBC Morph Micro Appear ABNORMAL (NORMAL) 12/01/16 18:25 Eos Smear Source URINE 12/03/16 06:30 Eos Smear Total Cells NONE SEEN (NONE SEEN) 12/03/16 06:30 PT 11.2 SECONDS (9.5-11.5) 12/03/16 05:35 INR 1.08 (0.5-1.4) 12/03/16 05:35 PTT (Actin FS) 19.6 SECONDS (26.0-38.0) L 12/01/16 18:25 Sodium 160 mEq/L (136-145) H* 12/04/16 04:50 Potassium 3.9 mEq/L (3.5-5.1) 12/04/16 04:50 Chloride 135 mEq/L (98-107) H 12/04/16 04:50 Carbon Dioxide 14.2 mEq/L (21.0-31.0) L 12/04/16 04:50 Anion Gap 14.7 (7.0-16.0) 12/04/16 04:50 BUN 121 mg/dL (7-25) H* 12/04/16 04:50 Creatinine 4.5 mg/dL (0.6-1.2) H* 12/04/16 04:50 Est GFR ( Amer) TNP 12/04/16 04:50 Est GFR (Non-Af Amer) TNP 12/04/16 04:50 BUN/Creatinine Ratio 26.9 12/04/16 04:50 Glucose 425 mg/dL (70-105) H 12/04/16 04:50 POC Glucose 394 MG/DL (70 - 105) H 12/04/16 06:05 Hemoglobin A1c % 9.0 % (4.0-6.0) H 12/01/16 18:25 Whole Bld Lactic Acid 1.48 mmol/L (0.60-1.99) 12/01/16 20:58 Uric Acid 11.6 mg/dL (2.3-6.6) H 12/03/16 05:35 Calcium 9.7 mg/dL (8.6-10.3) 12/04/16 04:50 Magnesium 2.7 mg/dL (1.9-2.7) 12/03/16 05:35 Total Bilirubin 0.5 mg/dL (0.3-1.0) 12/04/16 04:50 AST 28 U/L (13-39) 12/04/16 04:50 ALT 12 U/L (7-52) 12/04/16 04:50 Alkaline Phosphatase 74 U/L (34-104) 12/04/16 04:50 Total Protein 5.2 gm/dL (6.0-8.3) L 12/04/16 04:50 Albumin 2.4 gm/dL (3.7-5.3) L 12/04/16 04:50 Globulin 2.8 gm/dL 12/04/16 04:50 Albumin/Globulin Ratio 0.9 (1.0-1.8) L 12/04/16 04:50 TSH 2.49 uIU/ml (0.34-5.60) 12/03/16 05:35 Urine Source SOTO PORT 12/02/16 14:56 Urine Color YELLOW 12/02/16 14:56 Urine Clarity HAZY (CLEAR) 12/02/16 14:56 Urine pH 8.0 (4.6 - 8.0) 12/02/16 14:56 Ur Specific [place] 1.015 (1.005-1.030) 12/02/16 14:56 Urine Protein 100 mg/dL (NEGATIVE) H 12/02/16 14:56 Urine Glucose (UA) 500 mg/dL (NEGATIVE) H 12/02/16 14:56 Urine Ketones NEGATIVE mg/dL (NEGATIVE) 12/02/16 14:56 Urine Blood MODERATE (NEGATIVE) H 12/02/16 14:56 Urine Nitrate POSITIVE (NEGATIVE) H 12/02/16 14:56 Urine Bilirubin NEGATIVE (NEGATIVE) 12/02/16 14:56 Urine Urobilinogen 0.2 E.U./dL (0.2 - 1.0) 12/02/16 14:56 Ur Leukocyte Esterase MODERATE (NEGATIVE) H 12/02/16 14:56 Urine RBC 5-10 /hpf (0-5) H 12/02/16 14:56 Urine WBC 50-100 /hpf (0-5) H 12/02/16 14:56 Ur Epithelial Cells FEW /lpf (FEW) 12/02/16 14:56 Triple Phos Crystals MODERATE /hpf (FEW) 12/02/16 14:56 Urine Bacteria MANY /hpf (NONE SEEN) 12/02/16 14:56 Ur Random Sodium 75 mmol/L 12/03/16 06:30 Urine Creatinine 49.0 mg/dl (28.0-217.0) 12/03/16 06:30 Blood Type O POSITIVE 12/02/16 05:05 Antibody Screen NEGATIVE 12/02/16 05:05 - Physical Exam Vitals and I&O: Vital Signs Temp 97.7 F 12/04/16 08:00 Pulse 103 12/04/16 08:00 Resp 20 12/04/16 08:00 BP 140/55 12/04/16 08:00 Pulse Ox 100 12/04/16 08:00 Intake & Output 12/03/16 12/04/16 12/04/16 18:59 06:59 18:59 Intake Total 392 908.333 Output Total 700 Balance 392 208.333 Weight (lbs) 55.338 kg Intake: Intake, IV Amount 392 908.333 D5-0.45NS 1,000 ml @ 120 392 mls/hr IV .Q8H20M [facility] Rx# :[id number] Dextrose 5% 1,000 ml @ 908.333 125 mls/hr IV .Q8H [facility] Rx #:[id number] Output: Urine 700 Active Medications: Current Medications Acetaminophen (Tylenol) 650 mg PO Q6H PRN PRN Reason: Pain or Fever >101 Stop: 01/31/17 11:18 Bisacodyl (Dulcolax 5 Mg Ec Tab) 10 mg PO BID [facility] Stop: 01/31/17 16:59 Last Admin: 12/03/16 16:52 Dose: 10 mg Epoetin Esequiel (Epogen) 10,000 units SUBQ TuThSa [facility] Stop: 02/01/17 14:29 Last Admin: 12/03/16 16:01 Dose: 10,000 units Dextrose (D5w) 1,000 mls @ 125 mls/hr IV .Q8H [facility] Stop: 02/01/17 14:14 Last Admin: 12/04/16 03:02 Dose: 125 mls/hr Insulin Aspart (Novolog Insulin Sliding Scale) 0 units SUBQ ACHS [facility] PRN Reason: Protocol Stop: 01/31/17 07:29 Last Admin: 12/04/16 07:05 Dose: 11 units Miscellaneous (Vte Chemical Prophylaxis Screen/ Admission) 1 ea [facility] PRN PRN PRN Reason: PROTOCOL Stop: 01/31/17 13:38 Pantoprazole Sodium (Protonix) 40 mg IVP DAILY [facility] Stop: 02/01/17 08:59 Last Admin: 12/03/16 11:07 Dose: 40 mg Sodium Bicarbonate (Sodium Bicarbonate) 650 mg PO BID [facility] PRN Reason: Protocol Stop: 01/31/17 16:59 Last Admin: 12/03/16 16:52 Dose: 650 mg General: No acute distress, Other (Sedated, post surgery.) HEENT: Atraumatic, Mucous membr. 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
--- NOTE | 2016-12-04 09:09 | GI Progress Note ---
Subjective - Review of Systems Subjective: NO EVENTS Objective - Results Result Diagrams: 12/04/16 04:50 12/04/16 04:50 Recent Labs: Laboratory Last Values WBC 7.7 Th/cmm (4.8-10.8) 12/04/16 04:50 Corrected WBC (auto) 8.8 Th/cmm (4.8-10.8) 12/01/16 18:25 RBC 2.75 Mil/cmm (3.80-5.20) L 12/04/16 04:50 Hgb 7.9 gm/dL (12-16) L* 12/04/16 04:50 Hct 24.1 % (41.0-60) L 12/04/16 04:50 MCV 87.6 fl (81-100) 12/04/16 04:50 MCH 28.5 pg (27.0-31.0) 12/04/16 04:50 MCHC Differential 32.6 pg (28.0-36.0) 12/04/16 04:50 RDW 21.0 % (11.5-20.0) H 12/04/16 04:50 Plt Count 74 Th/cmm (150-400) L 12/04/16 04:50 MPV 14.6 fl 12/04/16 04:50 Neutrophils % 75.5 % (40.0-80.0) 12/02/16 05:05 Band Neutrophils % 8 % (0-10) 12/04/16 04:50 Lymphocytes % 18.4 % (20.0-50.0) L 12/02/16 05:05 Monocytes % 5.3 % (2.0-10.0) 12/02/16 05:05 Eosinophils % 0.7 % (0.0-5.0) 12/02/16 05:05 Basophils % 0.1 % (0.0-2.0) 12/02/16 05:05 Neutrophils (Manual) 77 % (40-80) 12/04/16 04:50 Lymphocytes 10 % (20-50) L 12/04/16 04:50 Monocytes 5 % (2-10) 12/04/16 04:50 Eosinophils 3 % (0-5) 12/03/16 05:35 Nucleated RBCs 5.0 % (0-0) H 12/01/16 18:25 Atypical Lymphocytes 1 % 12/01/16 18:25 Platelet Estimate SLIGHT DECREASED (NORMAL) 12/04/16 04:50 Platelet Morphology NORMAL (NORMAL) 12/01/16 18:25 Anisocytosis 2+ 12/03/16 05:35 RBC Morph Micro Appear ABNORMAL (NORMAL) 12/01/16 18:25 Eos Smear Source URINE 12/03/16 06:30 Eos Smear Total Cells NONE SEEN (NONE SEEN) 12/03/16 06:30 PT 11.2 SECONDS (9.5-11.5) 12/03/16 05:35 INR 1.08 (0.5-1.4) 12/03/16 05:35 PTT (Actin FS) 19.6 SECONDS (26.0-38.0) L 12/01/16 18:25 Sodium 160 mEq/L (136-145) H* 12/04/16 04:50 Potassium 3.9 mEq/L (3.5-5.1) 12/04/16 04:50 Chloride 135 mEq/L (98-107) H 12/04/16 04:50 Carbon Dioxide 14.2 mEq/L (21.0-31.0) L 12/04/16 04:50 Anion Gap 14.7 (7.0-16.0) 12/04/16 04:50 BUN 121 mg/dL (7-25) H* 12/04/16 04:50 Creatinine 4.5 mg/dL (0.6-1.2) H* 12/04/16 04:50 Est GFR ( Amer) TNP 12/04/16 04:50 Est GFR (Non-Af Amer) TNP 12/04/16 04:50 BUN/Creatinine Ratio 26.9 12/04/16 04:50 Glucose 425 mg/dL (70-105) H 12/04/16 04:50 POC Glucose 394 MG/DL (70 - 105) H 12/04/16 06:05 Hemoglobin A1c % 9.0 % (4.0-6.0) H 12/01/16 18:25 Whole Bld Lactic Acid 1.48 mmol/L (0.60-1.99) 12/01/16 20:58 Uric Acid 11.6 mg/dL (2.3-6.6) H 12/03/16 05:35 Calcium 9.7 mg/dL (8.6-10.3) 12/04/16 04:50 Magnesium 2.7 mg/dL (1.9-2.7) 12/03/16 05:35 Total Bilirubin 0.5 mg/dL (0.3-1.0) 12/04/16 04:50 AST 28 U/L (13-39) 12/04/16 04:50 ALT 12 U/L (7-52) 12/04/16 04:50 Alkaline Phosphatase 74 U/L (34-104) 12/04/16 04:50 Total Protein 5.2 gm/dL (6.0-8.3) L 12/04/16 04:50 Albumin 2.4 gm/dL (3.7-5.3) L 12/04/16 04:50 Globulin 2.8 gm/dL 12/04/16 04:50 Albumin/Globulin Ratio 0.9 (1.0-1.8) L 12/04/16 04:50 TSH 2.49 uIU/ml (0.34-5.60) 12/03/16 05:35 Urine Source SOTO PORT 12/02/16 14:56 Urine Color YELLOW 12/02/16 14:56 Urine Clarity HAZY (CLEAR) 12/02/16 14:56 Urine pH 8.0 (4.6 - 8.0) 12/02/16 14:56 Ur Specific [place] 1.015 (1.005-1.030) 12/02/16 14:56 Urine Protein 100 mg/dL (NEGATIVE) H 12/02/16 14:56 Urine Glucose (UA) 500 mg/dL (NEGATIVE) H 12/02/16 14:56 Urine Ketones NEGATIVE mg/dL (NEGATIVE) 12/02/16 14:56 Urine Blood MODERATE (NEGATIVE) H 12/02/16 14:56 Urine Nitrate POSITIVE (NEGATIVE) H 12/02/16 14:56 Urine Bilirubin NEGATIVE (NEGATIVE) 12/02/16 14:56 Urine Urobilinogen 0.2 E.U./dL (0.2 - 1.0) 12/02/16 14:56 Ur Leukocyte Esterase MODERATE (NEGATIVE) H 12/02/16 14:56 Urine RBC 5-10 /hpf (0-5) H 12/02/16 14:56 Urine WBC 50-100 /hpf (0-5) H 12/02/16 14:56 Ur Epithelial Cells FEW /lpf (FEW) 12/02/16 14:56 Triple Phos Crystals MODERATE /hpf (FEW) 12/02/16 14:56 Urine Bacteria MANY /hpf (NONE SEEN) 12/02/16 14:56 Ur Random Sodium 75 mmol/L 12/03/16 06:30 Urine Creatinine 49.0 mg/dl (28.0-217.0) 12/03/16 06:30 Blood Type O POSITIVE 12/02/16 05:05 Antibody Screen NEGATIVE 12/02/16 05:05 - Physical Exam Vitals and I&O: Vital Signs Temp 97.7 F 12/04/16 08:00 Pulse 103 12/04/16 08:00 Resp 20 12/04/16 08:00 BP 140/55 12/04/16 08:00 Pulse Ox 100 12/04/16 08:00 Intake & Output 12/03/16 12/04/16 12/04/16 18:59 06:59 18:59 Intake Total 392 908.333 Output Total 700 Balance 392 208.333 Weight (lbs) 55.338 kg Intake: Intake, IV Amount 392 908.333 D5-0.45NS 1,000 ml @ 120 392 mls/hr IV .Q8H20M [facility] Rx# :[id number] Dextrose 5% 1,000 ml @ 908.333 125 mls/hr IV .Q8H [facility] Rx #:[id number] Output: Urine 700 Active Medications: Current Medications Acetaminophen (Tylenol) 650 mg PO Q6H PRN PRN Reason: Pain or Fever >101 Stop: 01/31/17 11:18 Bisacodyl (Dulcolax 5 Mg Ec Tab) 10 mg PO BID [facility] Stop: 01/31/17 16:59 Last Admin: 12/03/16 16:52 Dose: 10 mg Epoetin Esequiel (Epogen) 10,000 units SUBQ TuThSa [facility] Stop: 02/01/17 14:29 Last Admin: 12/03/16 16:01 Dose: 10,000 units Dextrose (D5w) 1,000 mls @ 125 mls/hr IV .Q8H [facility] Stop: 02/01/17 14:14 Last Admin: 12/04/16 03:02 Dose: 125 mls/hr Insulin Aspart (Novolog Insulin Sliding Scale) 0 units SUBQ ACHS [facility] PRN Reason: Protocol Stop: 01/31/17 07:29 Last Admin: 12/04/16 07:05 Dose: 11 units Miscellaneous (Vte Chemical Prophylaxis Screen/ Admission) 1 ea [facility] PRN PRN PRN Reason: PROTOCOL Stop: 01/31/17 13:38 Pantoprazole Sodium (Protonix) 40 mg IVP DAILY [facility] Stop: 02/01/17 08:59 Last Admin: 12/03/16 11:07 Dose: 40 mg Sodium Bicarbonate (Sodium Bicarbonate) 650 mg PO BID [facility] PRN Reason: Protocol Stop: 01/31/17 16:59 Last Admin: 12/03/16 16:52 Dose: 650 mg General: No acute distress, Other (Sedated, post surgery.) HEENT: Atraumatic, Mucous membr. 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
[2016-12-04] MEDS: Multivitamin w/ Minerals Tab PO SCH (09:15)
[2016-12-04] MEDS: Venelex 60gm Tube TP SCH (09:15)
--- NOTE | 2016-12-04 10:07 | Diagnostic Imaging Report ---
Renal ultrasound HISTORY: Abnormal renal function test The exam is very limited due to patient contracture and difficulty in positioning. Exam also limited due to bowel gas. The right kidney measures approximately 12.0 x 7.4 x 7.5 cm. A 2.0 cm sonolucent lesion is noted in the medullary region consistent with a cyst. No hydronephrosis. The left kidney measures 10.5 x 4.9 x 4.3 cm. Several well-circumscribed sonolucent lesions are seen within the upper, mid, and lower pole cortical areas consistent with cysts. No hydronephrosis. The urinary bladder cannot be well evaluated due to lack of distention. IMPRESSION: 1. Bilateral renal cysts 2. No hydronephrosis
--- NOTE | 2016-12-04 11:41 | General Progress Note ---
Subjective - Review of Systems Service Date: 12/04/16 Subjective: Patient non verbal. Objective - Results Result Diagrams: 12/04/16 04:50 12/04/16 04:50 Recent Labs: Laboratory Last Values WBC 7.7 Th/cmm (4.8-10.8) 12/04/16 04:50 Corrected WBC (auto) 8.8 Th/cmm (4.8-10.8) 12/01/16 18:25 RBC 2.75 Mil/cmm (3.80-5.20) L 12/04/16 04:50 Hgb 7.9 gm/dL (12-16) L* 12/04/16 04:50 Hct 24.1 % (41.0-60) L 12/04/16 04:50 MCV 87.6 fl (81-100) 12/04/16 04:50 MCH 28.5 pg (27.0-31.0) 12/04/16 04:50 MCHC Differential 32.6 pg (28.0-36.0) 12/04/16 04:50 RDW 21.0 % (11.5-20.0) H 12/04/16 04:50 Plt Count 74 Th/cmm (150-400) L 12/04/16 04:50 MPV 14.6 fl 12/04/16 04:50 Neutrophils % 75.5 % (40.0-80.0) 12/02/16 05:05 Band Neutrophils % 8 % (0-10) 12/04/16 04:50 Lymphocytes % 18.4 % (20.0-50.0) L 12/02/16 05:05 Monocytes % 5.3 % (2.0-10.0) 12/02/16 05:05 Eosinophils % 0.7 % (0.0-5.0) 12/02/16 05:05 Basophils % 0.1 % (0.0-2.0) 12/02/16 05:05 Neutrophils (Manual) 77 % (40-80) 12/04/16 04:50 Lymphocytes 10 % (20-50) L 12/04/16 04:50 Monocytes 5 % (2-10) 12/04/16 04:50 Eosinophils 3 % (0-5) 12/03/16 05:35 Nucleated RBCs 5.0 % (0-0) H 12/01/16 18:25 Atypical Lymphocytes 1 % 12/01/16 18:25 Platelet Estimate SLIGHT DECREASED (NORMAL) 12/04/16 04:50 Platelet Morphology NORMAL (NORMAL) 12/01/16 18:25 Anisocytosis 2+ 12/03/16 05:35 RBC Morph Micro Appear ABNORMAL (NORMAL) 12/01/16 18:25 Eos Smear Source URINE 12/03/16 06:30 Eos Smear Total Cells NONE SEEN (NONE SEEN) 12/03/16 06:30 PT 11.2 SECONDS (9.5-11.5) 12/03/16 05:35 INR 1.08 (0.5-1.4) 12/03/16 05:35 PTT (Actin FS) 19.6 SECONDS (26.0-38.0) L 12/01/16 18:25 Sodium 160 mEq/L (136-145) H* 12/04/16 04:50 Potassium 3.9 mEq/L (3.5-5.1) 12/04/16 04:50 Chloride 135 mEq/L (98-107) H 12/04/16 04:50 Carbon Dioxide 14.2 mEq/L (21.0-31.0) L 12/04/16 04:50 Anion Gap 14.7 (7.0-16.0) 12/04/16 04:50 BUN 121 mg/dL (7-25) H* 12/04/16 04:50 Creatinine 4.5 mg/dL (0.6-1.2) H* 12/04/16 04:50 Est GFR ( Amer) TNP 12/04/16 04:50 Est GFR (Non-Af Amer) TNP 12/04/16 04:50 BUN/Creatinine Ratio 26.9 12/04/16 04:50 Glucose 425 mg/dL (70-105) H 12/04/16 04:50 POC Glucose 394 MG/DL (70 - 105) H 12/04/16 06:05 Hemoglobin A1c % 9.0 % (4.0-6.0) H 12/01/16 18:25 Whole Bld Lactic Acid 1.48 mmol/L (0.60-1.99) 12/01/16 20:58 Uric Acid 11.6 mg/dL (2.3-6.6) H 12/03/16 05:35 Calcium 9.7 mg/dL (8.6-10.3) 12/04/16 04:50 Magnesium 2.7 mg/dL (1.9-2.7) 12/03/16 05:35 Total Bilirubin 0.5 mg/dL (0.3-1.0) 12/04/16 04:50 AST 28 U/L (13-39) 12/04/16 04:50 ALT 12 U/L (7-52) 12/04/16 04:50 Alkaline Phosphatase 74 U/L (34-104) 12/04/16 04:50 Total Protein 5.2 gm/dL (6.0-8.3) L 12/04/16 04:50 Albumin 2.4 gm/dL (3.7-5.3) L 12/04/16 04:50 Globulin 2.8 gm/dL 12/04/16 04:50 Albumin/Globulin Ratio 0.9 (1.0-1.8) L 12/04/16 04:50 TSH 2.49 uIU/ml (0.34-5.60) 12/03/16 05:35 Urine Source SOTO PORT 12/02/16 14:56 Urine Color YELLOW 12/02/16 14:56 Urine Clarity HAZY (CLEAR) 12/02/16 14:56 Urine pH 8.0 (4.6 - 8.0) 12/02/16 14:56 Ur Specific [place] 1.015 (1.005-1.030) 12/02/16 14:56 Urine Protein 100 mg/dL (NEGATIVE) H 12/02/16 14:56 Urine Glucose (UA) 500 mg/dL (NEGATIVE) H 12/02/16 14:56 Urine Ketones NEGATIVE mg/dL (NEGATIVE) 12/02/16 14:56 Urine Blood MODERATE (NEGATIVE) H 12/02/16 14:56 Urine Nitrate POSITIVE (NEGATIVE) H 12/02/16 14:56 Urine Bilirubin NEGATIVE (NEGATIVE) 12/02/16 14:56 Urine Urobilinogen 0.2 E.U./dL (0.2 - 1.0) 12/02/16 14:56 Ur Leukocyte Esterase MODERATE (NEGATIVE) H 12/02/16 14:56 Urine RBC 5-10 /hpf (0-5) H 12/02/16 14:56 Urine WBC 50-100 /hpf (0-5) H 12/02/16 14:56 Ur Epithelial Cells FEW /lpf (FEW) 12/02/16 14:56 Triple Phos Crystals MODERATE /hpf (FEW) 12/02/16 14:56 Urine Bacteria MANY /hpf (NONE SEEN) 12/02/16 14:56 Ur Random Sodium 75 mmol/L 12/03/16 06:30 Urine Creatinine 49.0 mg/dl (28.0-217.0) 12/03/16 06:30 Blood Type O POSITIVE 12/02/16 05:05 Antibody Screen NEGATIVE 12/02/16 05:05 Crossmatch See Detail 12/02/16 05:05 - Physical Exam Vitals and I&O: Vital Signs Temp 97.7 F 12/04/16 08:00 Pulse 103 12/04/16 08:00 Resp 18 12/04/16 08:00 BP 140/55 12/04/16 08:00 Pulse Ox 100 12/04/16 08:00 Intake & Output 12/03/16 12/04/16 12/04/16 18:59 06:59 18:59 Intake Total 392 908.333 Output Total 700 Balance 392 208.333 Weight (lbs) 55.338 kg Intake: Intake, IV Amount 392 908.333 D5-0.45NS 1,000 ml @ 120 392 mls/hr IV .Q8H20M [facility] Rx# :[id number] Dextrose 5% 1,000 ml @ 908.333 125 mls/hr IV .Q8H [facility] Rx #:[id number] Output: Urine 700 Other: Stool Characteristics Soft Formed Black Active Medications: Current Medications Acetaminophen (Tylenol) 650 mg PO Q6H PRN PRN Reason: Pain or Fever >101 Stop: 01/31/17 11:18 Bisacodyl (Dulcolax 5 Mg Ec Tab) 10 mg PO BID [facility] Stop: 01/31/17 16:59 Last Admin: 12/04/16 09:15 Dose: 10 mg Epoetin Esequiel (Epogen) 10,000 units SUBQ TuThSa [facility] Stop: 02/01/17 14:29 Last Admin: 12/03/16 16:01 Dose: 10,000 units Dextrose (D5w) 1,000 mls @ 125 mls/hr IV .Q8H [facility] Stop: 02/01/17 14:14 Last Admin: 12/04/16 03:02 Dose: 125 mls/hr Insulin Aspart (Novolog Insulin Sliding Scale) 0 units SUBQ ACHS BRIELLE PRN Reason: Protocol Stop: 01/31/17 07:29 Last Admin: 12/04/16 07:05 Dose: 11 units Miscellaneous (Vte Chemical Prophylaxis Screen/ Admission) 1 ea MC PRN PRN PRN Reason: PROTOCOL Stop: 01/31/17 13:38 Pantoprazole Sodium (Protonix) 40 mg IVP DAILY [facility] Stop: 02/01/17 08:59 Last Admin: 12/04/16 09:15 Dose: 40 mg Sodium Bicarbonate (Sodium Bicarbonate) 650 mg PO BID [facility] PRN Reason: Protocol Stop: 01/31/17 16:59 Last Admin: 12/04/16 09:15 Dose: 650 mg General: No acute distress, Other (Sedated, post surgery.) HEENT: Atraumatic, Mucous membr. moist/pink Neck: Supple, +2 carotid pulse wo bruit Cardiovascular: Regular rate, Normal S1, Normal S2 Lungs: Clear to auscultation Abdomen: Bowel sounds, Soft, Other (PEG in place.) Extremities: Other (No edema), no Edema Neurological: Sensation intact, Other (Non ambulatory) Skin: Other (Decubit sacral ulcer stage IV), no Significant lesion Psych/Mental Status: Mood NL, Other (Sedated, post surgery) - Procedures Procedures: Procedures Procedure Code Date CHAGO MUSC/FASCIA 20 SQ CM/< 19830 10/24/16 EXCISION OF LEFT HIP MUSCLE, OPEN APPROACH [id number] 10/24/16 Assessment/Plan - Problem List Patient Problems: All Active Problems POOR ORAL INTAKE AND SWALLOWING (Acute) SACRAL AND BILATERAL BUTTOCK SKIN ULCERS (Acute) - Assessment Assessment: Current Active Problems Problem Status Onset POOR ORAL INTAKE AND SWALLOWING Acute Patient is awake, non verbal, in no acute distress. Na, Creatinine improving. Tomorrow will have ulcer debridament. Dx: Hypernatremia, AKF, Chronic anemia, Sacral decubitus ulcer stage IV, HTN, DM, Dementia - Plan Plan: PEG in place, fedding started. Already seen by Nepro, GI, and surgery. NA, and Creatinine improving. Case discussed with family. Blood transfusion is ordered. Tomorrow Will have ulcer debridament. Will continue to monitor. Nutritional Asmnt/Malnutr-PDOC - Dietary Evaluation Malnutrition Findings (Please click <Entered> for more info): Nutritional Asmnt/Malnutrition Start: 12/02/16 14: 44 Text: Status: Complete Freq: Document 12/02/16 14:44 GSUN (Rec: 12/02/16 15:19 GSUN [email or web address]) Nutritional Asmnt/Malnutrition Patient General Information Nutritional Screening Consult Diagnosis AKF, sacral decubitus ulcer stage IV, HTN, DM, dementia, chronic anemia Pertinent Medical Hx/Surgical Hx CAD, CVA, dementia, psychosis, muscle atrophy, AKF, DM, decubitus ulcer stage IV Subjective Information 81 year old female from SNF. RD consult for low Elliot and elevated blood glucose. Pt was awake, unable to provide nutrition hx. Family at bedside, spoke to family and RN Loren regarding nutrition plan of care, PEG placement consent obtained. Family has no other questions at this time. 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 Per nursing adm notes , 4-5lb wt loss in 2 weeks. Per family, unaware of UBW, aware of recent wt loss, stated pt stopped eating ~3-4 days ago. Loose skin, moderate to severe muslce fat wasting to chest and clavicles. Current Diet Order/ Nutrition Support NPO Pertinent Medications Dulcolax, D5-0.45ns, Novolog Pertinent Labs 12/01: A1c 9H 12/02: sodium 173H, potassium 5.3H, BUN 169H, creatinie 5.8H , glucose 238H, calcium 10.8H Nutritional Hx/Data Height 1.52 m Height (Calculated Centimeters) 152.4 Current Weight (lbs) 43.545 kg Weight (Calculated Kilograms) 43.5 Weight (Calculated Grams) 84823.9 [place] Body Weight 100 Recent Weight Change Yes Weight Status Approriate GI Symptoms Usual diet at home [facility] Skin Integrity/Comment: Elliot 11. Sacral decubitus ulcer stage IV. Estimated Nutritional Goals Calories/Kcals/Kg IBW 100lb/45.5kg Kcals Calculated 1365-1593kcal (30-35kcal/kg) Protein Calculated 68-73g (1.4-1.6g/kg, ulcer vs renal, ?HD) Fluid: ml Per MD Nutritional Problem 3. Problem Problem Altered nutrition related laboratory values related to Etiology DM aeb Signs/Symptoms: A1c 9H, glucose 238H 2. Problem Problem Increased kcal and prot needs related to Etiology skin integrity, recent weight loss aeb Signs/Symptoms: Sacral decubitus ulcer stage IV, wt loss 4-5lb in 2 weeks per nursing adm notes, moderate to seevre muslce/fat wasting to chest and clavicles 1. Problem Problem Impaired nutrient utilization related to Etiology acute kidney injury aeb Signs/Symptoms: potassium 5.3H, BUN 169H, creatinie 5.8H, calcium 10.8H Intervention/Recommendation Comments 1. Discussed enteral nutrition with family. Family has no further questions at this time . 2. When medically feasible to initiate feeding, recommend Novasource Renal at 30ml/hr x 24hrs, providing 720ml total volume, 1440kcal, 65g protein. Initiate at 10ml/hr for first 24 hrs, monitor for refeeding syndrome and tolerance, increase by 5ml/hr q12hrs until goal. 3. Recommend 1 packet Arginaid daily via tube for wound healing. 4. Monitor weight closely. Hx 4-5lb wt loss in 2 weeks per nursing adm note. Expected Outcomes/Goals Expected Outcomes/Goals 1. Pt to meet at least 75% of estimated nutritinoal eneds on tube feeding with tolerance.
--- NOTE | 2016-12-04 11:41 | General Progress Note ---
Subjective - Review of Systems Service Date: 12/04/16 Subjective: Patient non verbal. Objective - Results Result Diagrams: 12/04/16 04:50 12/04/16 04:50 Recent Labs: Laboratory Last Values WBC 7.7 Th/cmm (4.8-10.8) 12/04/16 04:50 Corrected WBC (auto) 8.8 Th/cmm (4.8-10.8) 12/01/16 18:25 RBC 2.75 Mil/cmm (3.80-5.20) L 12/04/16 04:50 Hgb 7.9 gm/dL (12-16) L* 12/04/16 04:50 Hct 24.1 % (41.0-60) L 12/04/16 04:50 MCV 87.6 fl (81-100) 12/04/16 04:50 MCH 28.5 pg (27.0-31.0) 12/04/16 04:50 MCHC Differential 32.6 pg (28.0-36.0) 12/04/16 04:50 RDW 21.0 % (11.5-20.0) H 12/04/16 04:50 Plt Count 74 Th/cmm (150-400) L 12/04/16 04:50 MPV 14.6 fl 12/04/16 04:50 Neutrophils % 75.5 % (40.0-80.0) 12/02/16 05:05 Band Neutrophils % 8 % (0-10) 12/04/16 04:50 Lymphocytes % 18.4 % (20.0-50.0) L 12/02/16 05:05 Monocytes % 5.3 % (2.0-10.0) 12/02/16 05:05 Eosinophils % 0.7 % (0.0-5.0) 12/02/16 05:05 Basophils % 0.1 % (0.0-2.0) 12/02/16 05:05 Neutrophils (Manual) 77 % (40-80) 12/04/16 04:50 Lymphocytes 10 % (20-50) L 12/04/16 04:50 Monocytes 5 % (2-10) 12/04/16 04:50 Eosinophils 3 % (0-5) 12/03/16 05:35 Nucleated RBCs 5.0 % (0-0) H 12/01/16 18:25 Atypical Lymphocytes 1 % 12/01/16 18:25 Platelet Estimate SLIGHT DECREASED (NORMAL) 12/04/16 04:50 Platelet Morphology NORMAL (NORMAL) 12/01/16 18:25 Anisocytosis 2+ 12/03/16 05:35 RBC Morph Micro Appear ABNORMAL (NORMAL) 12/01/16 18:25 Eos Smear Source URINE 12/03/16 06:30 Eos Smear Total Cells NONE SEEN (NONE SEEN) 12/03/16 06:30 PT 11.2 SECONDS (9.5-11.5) 12/03/16 05:35 INR 1.08 (0.5-1.4) 12/03/16 05:35 PTT (Actin FS) 19.6 SECONDS (26.0-38.0) L 12/01/16 18:25 Sodium 160 mEq/L (136-145) H* 12/04/16 04:50 Potassium 3.9 mEq/L (3.5-5.1) 12/04/16 04:50 Chloride 135 mEq/L (98-107) H 12/04/16 04:50 Carbon Dioxide 14.2 mEq/L (21.0-31.0) L 12/04/16 04:50 Anion Gap 14.7 (7.0-16.0) 12/04/16 04:50 BUN 121 mg/dL (7-25) H* 12/04/16 04:50 Creatinine 4.5 mg/dL (0.6-1.2) H* 12/04/16 04:50 Est GFR ( Amer) TNP 12/04/16 04:50 Est GFR (Non-Af Amer) TNP 12/04/16 04:50 BUN/Creatinine Ratio 26.9 12/04/16 04:50 Glucose 425 mg/dL (70-105) H 12/04/16 04:50 POC Glucose 394 MG/DL (70 - 105) H 12/04/16 06:05 Hemoglobin A1c % 9.0 % (4.0-6.0) H 12/01/16 18:25 Whole Bld Lactic Acid 1.48 mmol/L (0.60-1.99) 12/01/16 20:58 Uric Acid 11.6 mg/dL (2.3-6.6) H 12/03/16 05:35 Calcium 9.7 mg/dL (8.6-10.3) 12/04/16 04:50 Magnesium 2.7 mg/dL (1.9-2.7) 12/03/16 05:35 Total Bilirubin 0.5 mg/dL (0.3-1.0) 12/04/16 04:50 AST 28 U/L (13-39) 12/04/16 04:50 ALT 12 U/L (7-52) 12/04/16 04:50 Alkaline Phosphatase 74 U/L (34-104) 12/04/16 04:50 Total Protein 5.2 gm/dL (6.0-8.3) L 12/04/16 04:50 Albumin 2.4 gm/dL (3.7-5.3) L 12/04/16 04:50 Globulin 2.8 gm/dL 12/04/16 04:50 Albumin/Globulin Ratio 0.9 (1.0-1.8) L 12/04/16 04:50 TSH 2.49 uIU/ml (0.34-5.60) 12/03/16 05:35 Urine Source SOTO PORT 12/02/16 14:56 Urine Color YELLOW 12/02/16 14:56 Urine Clarity HAZY (CLEAR) 12/02/16 14:56 Urine pH 8.0 (4.6 - 8.0) 12/02/16 14:56 Ur Specific [place] 1.015 (1.005-1.030) 12/02/16 14:56 Urine Protein 100 mg/dL (NEGATIVE) H 12/02/16 14:56 Urine Glucose (UA) 500 mg/dL (NEGATIVE) H 12/02/16 14:56 Urine Ketones NEGATIVE mg/dL (NEGATIVE) 12/02/16 14:56 Urine Blood MODERATE (NEGATIVE) H 12/02/16 14:56 Urine Nitrate POSITIVE (NEGATIVE) H 12/02/16 14:56 Urine Bilirubin NEGATIVE (NEGATIVE) 12/02/16 14:56 Urine Urobilinogen 0.2 E.U./dL (0.2 - 1.0) 12/02/16 14:56 Ur Leukocyte Esterase MODERATE (NEGATIVE) H 12/02/16 14:56 Urine RBC 5-10 /hpf (0-5) H 12/02/16 14:56 Urine WBC 50-100 /hpf (0-5) H 12/02/16 14:56 Ur Epithelial Cells FEW /lpf (FEW) 12/02/16 14:56 Triple Phos Crystals MODERATE /hpf (FEW) 12/02/16 14:56 Urine Bacteria MANY /hpf (NONE SEEN) 12/02/16 14:56 Ur Random Sodium 75 mmol/L 12/03/16 06:30 Urine Creatinine 49.0 mg/dl (28.0-217.0) 12/03/16 06:30 Blood Type O POSITIVE 12/02/16 05:05 Antibody Screen NEGATIVE 12/02/16 05:05 Crossmatch See Detail 12/02/16 05:05 - Physical Exam Vitals and I&O: Vital Signs Temp 97.7 F 12/04/16 08:00 Pulse 103 12/04/16 08:00 Resp 18 12/04/16 08:00 BP 140/55 12/04/16 08:00 Pulse Ox 100 12/04/16 08:00 Intake & Output 12/03/16 12/04/16 12/04/16 18:59 06:59 18:59 Intake Total 392 908.333 Output Total 700 Balance 392 208.333 Weight (lbs) 55.338 kg Intake: Intake, IV Amount 392 908.333 D5-0.45NS 1,000 ml @ 120 392 mls/hr IV .Q8H20M [facility] Rx# :[id number] Dextrose 5% 1,000 ml @ 908.333 125 mls/hr IV .Q8H [facility] Rx #:[id number] Output: Urine 700 Other: Stool Characteristics Soft Formed Black Active Medications: Current Medications Acetaminophen (Tylenol) 650 mg PO Q6H PRN PRN Reason: Pain or Fever >101 Stop: 01/31/17 11:18 Bisacodyl (Dulcolax 5 Mg Ec Tab) 10 mg PO BID [facility] Stop: 01/31/17 16:59 Last Admin: 12/04/16 09:15 Dose: 10 mg Epoetin Esequiel (Epogen) 10,000 units SUBQ TuThSa [facility] Stop: 02/01/17 14:29 Last Admin: 12/03/16 16:01 Dose: 10,000 units Dextrose (D5w) 1,000 mls @ 125 mls/hr IV .Q8H [facility] Stop: 02/01/17 14:14 Last Admin: 12/04/16 03:02 Dose: 125 mls/hr Insulin Aspart (Novolog Insulin Sliding Scale) 0 units SUBQ ACHS BRIELLE PRN Reason: Protocol Stop: 01/31/17 07:29 Last Admin: 12/04/16 07:05 Dose: 11 units Miscellaneous (Vte Chemical Prophylaxis Screen/ Admission) 1 ea MC PRN PRN PRN Reason: PROTOCOL Stop: 01/31/17 13:38 Pantoprazole Sodium (Protonix) 40 mg IVP DAILY [facility] Stop: 02/01/17 08:59 Last Admin: 12/04/16 09:15 Dose: 40 mg Sodium Bicarbonate (Sodium Bicarbonate) 650 mg PO BID [facility] PRN Reason: Protocol Stop: 01/31/17 16:59 Last Admin: 12/04/16 09:15 Dose: 650 mg General: No acute distress, Other (Sedated, post surgery.) HEENT: Atraumatic, Mucous membr. moist/pink Neck: Supple, +2 carotid pulse wo bruit Cardiovascular: Regular rate, Normal S1, Normal S2 Lungs: Clear to auscultation Abdomen: Bowel sounds, Soft, Other (PEG in place.) Extremities: Other (No edema), no Edema Neurological: Sensation intact, Other (Non ambulatory) Skin: Other (Decubit sacral ulcer stage IV), no Significant lesion Psych/Mental Status: Mood NL, Other (Sedated, post surgery) - Procedures Procedures: Procedures Procedure Code Date CHAGO MUSC/FASCIA 20 SQ CM/< 22775 10/24/16 EXCISION OF LEFT HIP MUSCLE, OPEN APPROACH [id number] 10/24/16 Assessment/Plan - Problem List Patient Problems: All Active Problems POOR ORAL INTAKE AND SWALLOWING (Acute) SACRAL AND BILATERAL BUTTOCK SKIN ULCERS (Acute) - Assessment Assessment: Current Active Problems Problem Status Onset POOR ORAL INTAKE AND SWALLOWING Acute Patient is awake, non verbal, in no acute distress. Na, Creatinine improving. Tomorrow will have ulcer debridament. Dx: Hypernatremia, AKF, Chronic anemia, Sacral decubitus ulcer stage IV, HTN, DM, Dementia - Plan Plan: PEG in place, fedding started. Already seen by Nepro, GI, and surgery. NA, and Creatinine improving. Case discussed with family. Blood transfusion is ordered. Tomorrow Will have ulcer debridament. Will continue to monitor. Nutritional Asmnt/Malnutr-PDOC - Dietary Evaluation Malnutrition Findings (Please click <Entered> for more info): Nutritional Asmnt/Malnutrition Start: 12/02/16 14: 44 Text: Status: Complete Freq: Document 12/02/16 14:44 GSUN (Rec: 12/02/16 15:19 GSUN [email or web address]) Nutritional Asmnt/Malnutrition Patient General Information Nutritional Screening Consult Diagnosis AKF, sacral decubitus ulcer stage IV, HTN, DM, dementia, chronic anemia Pertinent Medical Hx/Surgical Hx CAD, CVA, dementia, psychosis, muscle atrophy, AKF, DM, decubitus ulcer stage IV Subjective Information 81 year old female from SNF. RD consult for low Elliot and elevated blood glucose. Pt was awake, unable to provide nutrition hx. Family at bedside, spoke to family and RN Loren regarding nutrition plan of care, PEG placement consent obtained. Family has no other questions at this time. 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 Per nursing adm notes , 4-5lb wt loss in 2 weeks. Per family, unaware of UBW, aware of recent wt loss, stated pt stopped eating ~3-4 days ago. Loose skin, moderate to severe muslce fat wasting to chest and clavicles. Current Diet Order/ Nutrition Support NPO Pertinent Medications Dulcolax, D5-0.45ns, Novolog Pertinent Labs 12/01: A1c 9H 12/02: sodium 173H, potassium 5.3H, BUN 169H, creatinie 5.8H , glucose 238H, calcium 10.8H Nutritional Hx/Data Height 1.52 m Height (Calculated Centimeters) 152.4 Current Weight (lbs) 43.545 kg Weight (Calculated Kilograms) 43.5 Weight (Calculated Grams) 52526.9 [place] Body Weight 100 Recent Weight Change Yes Weight Status Approriate GI Symptoms Usual diet at home [facility] Skin Integrity/Comment: Elliot 11. Sacral decubitus ulcer stage IV. Estimated Nutritional Goals Calories/Kcals/Kg IBW 100lb/45.5kg Kcals Calculated 1365-1593kcal (30-35kcal/kg) Protein Calculated 68-73g (1.4-1.6g/kg, ulcer vs renal, ?HD) Fluid: ml Per MD Nutritional Problem 3. Problem Problem Altered nutrition related laboratory values related to Etiology DM aeb Signs/Symptoms: A1c 9H, glucose 238H 2. Problem Problem Increased kcal and prot needs related to Etiology skin integrity, recent weight loss aeb Signs/Symptoms: Sacral decubitus ulcer stage IV, wt loss 4-5lb in 2 weeks per nursing adm notes, moderate to seevre muslce/fat wasting to chest and clavicles 1. Problem Problem Impaired nutrient utilization related to Etiology acute kidney injury aeb Signs/Symptoms: potassium 5.3H, BUN 169H, creatinie 5.8H, calcium 10.8H Intervention/Recommendation Comments 1. Discussed enteral nutrition with family. Family has no further questions at this time . 2. When medically feasible to initiate feeding, recommend Novasource Renal at 30ml/hr x 24hrs, providing 720ml total volume, 1440kcal, 65g protein. Initiate at 10ml/hr for first 24 hrs, monitor for refeeding syndrome and tolerance, increase by 5ml/hr q12hrs until goal. 3. Recommend 1 packet Arginaid daily via tube for wound healing. 4. Monitor weight closely. Hx 4-5lb wt loss in 2 weeks per nursing adm note. Expected Outcomes/Goals Expected Outcomes/Goals 1. Pt to meet at least 75% of estimated nutritinoal eneds on tube feeding with tolerance.
--- NOTE | 2016-12-04 11:41 | General Progress Note ---
Subjective - Review of Systems Service Date: 12/04/16 Subjective: Patient non verbal. Objective - Results Result Diagrams: 12/04/16 04:50 12/04/16 04:50 Recent Labs: Laboratory Last Values WBC 7.7 Th/cmm (4.8-10.8) 12/04/16 04:50 Corrected WBC (auto) 8.8 Th/cmm (4.8-10.8) 12/01/16 18:25 RBC 2.75 Mil/cmm (3.80-5.20) L 12/04/16 04:50 Hgb 7.9 gm/dL (12-16) L* 12/04/16 04:50 Hct 24.1 % (41.0-60) L 12/04/16 04:50 MCV 87.6 fl (81-100) 12/04/16 04:50 MCH 28.5 pg (27.0-31.0) 12/04/16 04:50 MCHC Differential 32.6 pg (28.0-36.0) 12/04/16 04:50 RDW 21.0 % (11.5-20.0) H 12/04/16 04:50 Plt Count 74 Th/cmm (150-400) L 12/04/16 04:50 MPV 14.6 fl 12/04/16 04:50 Neutrophils % 75.5 % (40.0-80.0) 12/02/16 05:05 Band Neutrophils % 8 % (0-10) 12/04/16 04:50 Lymphocytes % 18.4 % (20.0-50.0) L 12/02/16 05:05 Monocytes % 5.3 % (2.0-10.0) 12/02/16 05:05 Eosinophils % 0.7 % (0.0-5.0) 12/02/16 05:05 Basophils % 0.1 % (0.0-2.0) 12/02/16 05:05 Neutrophils (Manual) 77 % (40-80) 12/04/16 04:50 Lymphocytes 10 % (20-50) L 12/04/16 04:50 Monocytes 5 % (2-10) 12/04/16 04:50 Eosinophils 3 % (0-5) 12/03/16 05:35 Nucleated RBCs 5.0 % (0-0) H 12/01/16 18:25 Atypical Lymphocytes 1 % 12/01/16 18:25 Platelet Estimate SLIGHT DECREASED (NORMAL) 12/04/16 04:50 Platelet Morphology NORMAL (NORMAL) 12/01/16 18:25 Anisocytosis 2+ 12/03/16 05:35 RBC Morph Micro Appear ABNORMAL (NORMAL) 12/01/16 18:25 Eos Smear Source URINE 12/03/16 06:30 Eos Smear Total Cells NONE SEEN (NONE SEEN) 12/03/16 06:30 PT 11.2 SECONDS (9.5-11.5) 12/03/16 05:35 INR 1.08 (0.5-1.4) 12/03/16 05:35 PTT (Actin FS) 19.6 SECONDS (26.0-38.0) L 12/01/16 18:25 Sodium 160 mEq/L (136-145) H* 12/04/16 04:50 Potassium 3.9 mEq/L (3.5-5.1) 12/04/16 04:50 Chloride 135 mEq/L (98-107) H 12/04/16 04:50 Carbon Dioxide 14.2 mEq/L (21.0-31.0) L 12/04/16 04:50 Anion Gap 14.7 (7.0-16.0) 12/04/16 04:50 BUN 121 mg/dL (7-25) H* 12/04/16 04:50 Creatinine 4.5 mg/dL (0.6-1.2) H* 12/04/16 04:50 Est GFR ( Amer) TNP 12/04/16 04:50 Est GFR (Non-Af Amer) TNP 12/04/16 04:50 BUN/Creatinine Ratio 26.9 12/04/16 04:50 Glucose 425 mg/dL (70-105) H 12/04/16 04:50 POC Glucose 394 MG/DL (70 - 105) H 12/04/16 06:05 Hemoglobin A1c % 9.0 % (4.0-6.0) H 12/01/16 18:25 Whole Bld Lactic Acid 1.48 mmol/L (0.60-1.99) 12/01/16 20:58 Uric Acid 11.6 mg/dL (2.3-6.6) H 12/03/16 05:35 Calcium 9.7 mg/dL (8.6-10.3) 12/04/16 04:50 Magnesium 2.7 mg/dL (1.9-2.7) 12/03/16 05:35 Total Bilirubin 0.5 mg/dL (0.3-1.0) 12/04/16 04:50 AST 28 U/L (13-39) 12/04/16 04:50 ALT 12 U/L (7-52) 12/04/16 04:50 Alkaline Phosphatase 74 U/L (34-104) 12/04/16 04:50 Total Protein 5.2 gm/dL (6.0-8.3) L 12/04/16 04:50 Albumin 2.4 gm/dL (3.7-5.3) L 12/04/16 04:50 Globulin 2.8 gm/dL 12/04/16 04:50 Albumin/Globulin Ratio 0.9 (1.0-1.8) L 12/04/16 04:50 TSH 2.49 uIU/ml (0.34-5.60) 12/03/16 05:35 Urine Source SOTO PORT 12/02/16 14:56 Urine Color YELLOW 12/02/16 14:56 Urine Clarity HAZY (CLEAR) 12/02/16 14:56 Urine pH 8.0 (4.6 - 8.0) 12/02/16 14:56 Ur Specific [place] 1.015 (1.005-1.030) 12/02/16 14:56 Urine Protein 100 mg/dL (NEGATIVE) H 12/02/16 14:56 Urine Glucose (UA) 500 mg/dL (NEGATIVE) H 12/02/16 14:56 Urine Ketones NEGATIVE mg/dL (NEGATIVE) 12/02/16 14:56 Urine Blood MODERATE (NEGATIVE) H 12/02/16 14:56 Urine Nitrate POSITIVE (NEGATIVE) H 12/02/16 14:56 Urine Bilirubin NEGATIVE (NEGATIVE) 12/02/16 14:56 Urine Urobilinogen 0.2 E.U./dL (0.2 - 1.0) 12/02/16 14:56 Ur Leukocyte Esterase MODERATE (NEGATIVE) H 12/02/16 14:56 Urine RBC 5-10 /hpf (0-5) H 12/02/16 14:56 Urine WBC 50-100 /hpf (0-5) H 12/02/16 14:56 Ur Epithelial Cells FEW /lpf (FEW) 12/02/16 14:56 Triple Phos Crystals MODERATE /hpf (FEW) 12/02/16 14:56 Urine Bacteria MANY /hpf (NONE SEEN) 12/02/16 14:56 Ur Random Sodium 75 mmol/L 12/03/16 06:30 Urine Creatinine 49.0 mg/dl (28.0-217.0) 12/03/16 06:30 Blood Type O POSITIVE 12/02/16 05:05 Antibody Screen NEGATIVE 12/02/16 05:05 Crossmatch See Detail 12/02/16 05:05 - Physical Exam Vitals and I&O: Vital Signs Temp 97.7 F 12/04/16 08:00 Pulse 103 12/04/16 08:00 Resp 18 12/04/16 08:00 BP 140/55 12/04/16 08:00 Pulse Ox 100 12/04/16 08:00 Intake & Output 12/03/16 12/04/16 12/04/16 18:59 06:59 18:59 Intake Total 392 908.333 Output Total 700 Balance 392 208.333 Weight (lbs) 55.338 kg Intake: Intake, IV Amount 392 908.333 D5-0.45NS 1,000 ml @ 120 392 mls/hr IV .Q8H20M [facility] Rx# :[id number] Dextrose 5% 1,000 ml @ 908.333 125 mls/hr IV .Q8H [facility] Rx #:[id number] Output: Urine 700 Other: Stool Characteristics Soft Formed Black Active Medications: Current Medications Acetaminophen (Tylenol) 650 mg PO Q6H PRN PRN Reason: Pain or Fever >101 Stop: 01/31/17 11:18 Bisacodyl (Dulcolax 5 Mg Ec Tab) 10 mg PO BID [facility] Stop: 01/31/17 16:59 Last Admin: 12/04/16 09:15 Dose: 10 mg Epoetin Esequiel (Epogen) 10,000 units SUBQ TuThSa [facility] Stop: 02/01/17 14:29 Last Admin: 12/03/16 16:01 Dose: 10,000 units Dextrose (D5w) 1,000 mls @ 125 mls/hr IV .Q8H [facility] Stop: 02/01/17 14:14 Last Admin: 12/04/16 03:02 Dose: 125 mls/hr Insulin Aspart (Novolog Insulin Sliding Scale) 0 units SUBQ ACHS [facility] PRN Reason: Protocol Stop: 01/31/17 07:29 Last Admin: 12/04/16 07:05 Dose: 11 units Miscellaneous (Vte Chemical Prophylaxis Screen/ Admission) 1 ea [facility] PRN PRN PRN Reason: PROTOCOL Stop: 01/31/17 13:38 Pantoprazole Sodium (Protonix) 40 mg IVP DAILY [facility] Stop: 02/01/17 08:59 Last Admin: 12/04/16 09:15 Dose: 40 mg Sodium Bicarbonate (Sodium Bicarbonate) 650 mg PO BID [facility] PRN Reason: Protocol Stop: 01/31/17 16:59 Last Admin: 12/04/16 09:15 Dose: 650 mg General: No acute distress, Other (Sedated, post surgery.) HEENT: Atraumatic, Mucous membr. moist/pink Neck: Supple, +2 carotid pulse wo bruit Cardiovascular: Regular rate, Normal S1, Normal S2 Lungs: Clear to auscultation Abdomen: Bowel sounds, Soft, Other (PEG in place.) Extremities: Other (No edema), no Edema Neurological: Sensation intact, Other (Non ambulatory) Skin: Other (Decubit sacral ulcer stage IV), no Significant lesion Psych/Mental Status: Mood NL, Other (Sedated, post surgery) - Procedures Procedures: Procedures Procedure Code Date CHAGO MUSC/FASCIA 20 SQ CM/< 85385 10/24/16 EXCISION OF LEFT HIP MUSCLE, OPEN APPROACH [id number] 10/24/16 Assessment/Plan - Problem List Patient Problems: All Active Problems POOR ORAL INTAKE AND SWALLOWING (Acute) SACRAL AND BILATERAL BUTTOCK SKIN ULCERS (Acute) - Assessment Assessment: Current Active Problems Problem Status Onset POOR ORAL INTAKE AND SWALLOWING Acute Patient is awake, non verbal, in no acute distress. Na, Creatinine improving. Tomorrow will have ulcer debridament. Dx: Hypernatremia, AKF, Chronic anemia, Sacral decubitus ulcer stage IV, HTN, DM, Dementia - Plan Plan: PEG in place, fedding started. Already seen by Nepro, GI, and surgery. NA, and Creatinine improving. Case discussed with family. Blood transfusion is ordered. Tomorrow Will have ulcer debridament. Will continue to monitor. Nutritional Asmnt/Malnutr-PDOC - Dietary Evaluation Malnutrition Findings (Please click <Entered> for more info): Nutritional Asmnt/Malnutrition Start: 12/02/16 14: 44 Text: Status: Complete Freq: Document 12/02/16 14:44 GSUN (Rec: 12/02/16 15:19 GSUN [email or web address]) Nutritional Asmnt/Malnutrition Patient General Information Nutritional Screening Consult Diagnosis AKF, sacral decubitus ulcer stage IV, HTN, DM, dementia, chronic anemia Pertinent Medical Hx/Surgical Hx CAD, CVA, dementia, psychosis, muscle atrophy, AKF, DM, decubitus ulcer stage IV Subjective Information 81 year old female from SNF. RD consult for low Elliot and elevated blood glucose. Pt was awake, unable to provide nutrition hx. Family at bedside, spoke to family and RN Loren regarding nutrition plan of care, PEG placement consent obtained. Family has no other questions at this time. Elevated BUN, asset management lead, K, family reported pt is not on dialysis, "possible HD today" per H&P. Per nursing adm notes , 4-5lb wt loss in 2 weeks. Per family, unaware of UBW, aware of recent wt loss, stated pt stopped eating ~3-4 days ago. Loose skin, moderate to severe muslce fat wasting to chest and clavicles. Current Diet Order/ Nutrition Support NPO Pertinent Medications Dulcolax, D5-0.45ns, Novolog Pertinent Labs 12/01: A1c 9H 12/02: sodium 173H, potassium 5.3H, BUN 169H, creatinie 5.8H , glucose 238H, calcium 10.8H Nutritional Hx/Data Height 1.52 m Height (Calculated Centimeters) 152.4 Current Weight (lbs) 43.545 kg Weight (Calculated Kilograms) 43.5 Weight (Calculated Grams) 00980.9 [place] Body Weight 100 Recent Weight Change Yes Weight Status Approriate GI Symptoms Usual diet at home [facility]: pureed[facility] Skin Integrity/Comment: Elliot 11. Sacral decubitus ulcer stage IV. Estimated Nutritional Goals Calories/Kcals/Kg IBW 100lb/45.5kg Kcals Calculated 1365-1593kcal (30-35kcal/kg) Protein Calculated 68-73g (1.4-1.6g/kg, ulcer vs renal, ?HD) Fluid: ml Per MD Nutritional Problem 3. Problem Problem Altered nutrition related laboratory values related to Etiology DM aeb Signs/Symptoms: A1c 9H, glucose 238H 2. Problem Problem Increased kcal and prot needs related to Etiology skin integrity, recent weight loss aeb Signs/Symptoms: Sacral decubitus ulcer stage IV, wt loss 4-5lb in 2 weeks per nursing adm notes, moderate to seevre muslce/fat wasting to chest and clavicles 1. Problem Problem Impaired nutrient utilization related to Etiology acute kidney injury aeb Signs/Symptoms: potassium 5.3H, BUN 169H, creatinie 5.8H, calcium 10.8H Intervention/Recommendation Comments 1. Discussed enteral nutrition with family. Family has no further questions at this time . 2. When medically feasible to initiate feeding, recommend Novasource Renal at 30ml/hr x 24hrs, providing 720ml total volume, 1440kcal, 65g protein. Initiate at 10ml/hr for first 24 hrs, monitor for refeeding syndrome and tolerance, increase by 5ml/hr q12hrs until goal. 3. Recommend 1 packet Arginaid daily via tube for wound healing. 4. Monitor weight closely. Hx 4-5lb wt loss in 2 weeks per nursing adm note. Expected Outcomes/Goals Expected Outcomes/Goals 1. Pt to meet at least 75% of estimated nutritinoal eneds on tube feeding with tolerance.
--- NOTE | 2016-12-04 14:59 | General Progress Note ---
Subjective - Review of Systems Service Date: 12/04/16 Subjective: more awake, comfortable Objective - Results Result Diagrams: 12/04/16 04:50 12/04/16 04:50 Recent Labs: Laboratory Last Values WBC 7.7 Th/cmm (4.8-10.8) 12/04/16 04:50 Corrected WBC (auto) 8.8 Th/cmm (4.8-10.8) 12/01/16 18:25 RBC 2.75 Mil/cmm (3.80-5.20) L 12/04/16 04:50 Hgb 7.9 gm/dL (12-16) L* 12/04/16 04:50 Hct 24.1 % (41.0-60) L 12/04/16 04:50 MCV 87.6 fl (81-100) 12/04/16 04:50 MCH 28.5 pg (27.0-31.0) 12/04/16 04:50 MCHC Differential 32.6 pg (28.0-36.0) 12/04/16 04:50 RDW 21.0 % (11.5-20.0) H 12/04/16 04:50 Plt Count 74 Th/cmm (150-400) L 12/04/16 04:50 MPV 14.6 fl 12/04/16 04:50 Neutrophils % 75.5 % (40.0-80.0) 12/02/16 05:05 Band Neutrophils % 8 % (0-10) 12/04/16 04:50 Lymphocytes % 18.4 % (20.0-50.0) L 12/02/16 05:05 Monocytes % 5.3 % (2.0-10.0) 12/02/16 05:05 Eosinophils % 0.7 % (0.0-5.0) 12/02/16 05:05 Basophils % 0.1 % (0.0-2.0) 12/02/16 05:05 Neutrophils (Manual) 77 % (40-80) 12/04/16 04:50 Lymphocytes 10 % (20-50) L 12/04/16 04:50 Monocytes 5 % (2-10) 12/04/16 04:50 Eosinophils 3 % (0-5) 12/03/16 05:35 Nucleated RBCs 5.0 % (0-0) H 12/01/16 18:25 Atypical Lymphocytes 1 % 12/01/16 18:25 Platelet Estimate SLIGHT DECREASED (NORMAL) 12/04/16 04:50 Platelet Morphology NORMAL (NORMAL) 12/01/16 18:25 Anisocytosis 2+ 12/03/16 05:35 RBC Morph Micro Appear ABNORMAL (NORMAL) 12/01/16 18:25 Eos Smear Source URINE 12/03/16 06:30 Eos Smear Total Cells NONE SEEN (NONE SEEN) 12/03/16 06:30 PT 11.2 SECONDS (9.5-11.5) 12/03/16 05:35 INR 1.08 (0.5-1.4) 12/03/16 05:35 PTT (Actin FS) 19.6 SECONDS (26.0-38.0) L 12/01/16 18:25 Sodium 160 mEq/L (136-145) H* 12/04/16 04:50 Potassium 3.9 mEq/L (3.5-5.1) 12/04/16 04:50 Chloride 135 mEq/L (98-107) H 12/04/16 04:50 Carbon Dioxide 14.2 mEq/L (21.0-31.0) L 12/04/16 04:50 Anion Gap 14.7 (7.0-16.0) 12/04/16 04:50 BUN 121 mg/dL (7-25) H* 12/04/16 04:50 Creatinine 4.5 mg/dL (0.6-1.2) H* 12/04/16 04:50 Est GFR ( Amer) TNP 12/04/16 04:50 Est GFR (Non-Af Amer) TNP 12/04/16 04:50 BUN/Creatinine Ratio 26.9 12/04/16 04:50 Glucose 425 mg/dL (70-105) H 12/04/16 04:50 POC Glucose 398 MG/DL (70 - 105) H 12/04/16 11:40 Hemoglobin A1c % 9.0 % (4.0-6.0) H 12/01/16 18:25 Whole Bld Lactic Acid 1.48 mmol/L (0.60-1.99) 12/01/16 20:58 Uric Acid 11.6 mg/dL (2.3-6.6) H 12/03/16 05:35 Calcium 9.7 mg/dL (8.6-10.3) 12/04/16 04:50 Magnesium 2.7 mg/dL (1.9-2.7) 12/03/16 05:35 Total Bilirubin 0.5 mg/dL (0.3-1.0) 12/04/16 04:50 AST 28 U/L (13-39) 12/04/16 04:50 ALT 12 U/L (7-52) 12/04/16 04:50 Alkaline Phosphatase 74 U/L (34-104) 12/04/16 04:50 Total Protein 5.2 gm/dL (6.0-8.3) L 12/04/16 04:50 Albumin 2.4 gm/dL (3.7-5.3) L 12/04/16 04:50 Globulin 2.8 gm/dL 12/04/16 04:50 Albumin/Globulin Ratio 0.9 (1.0-1.8) L 12/04/16 04:50 TSH 2.49 uIU/ml (0.34-5.60) 12/03/16 05:35 Urine Source SOTO PORT 12/02/16 14:56 Urine Color YELLOW 12/02/16 14:56 Urine Clarity HAZY (CLEAR) 12/02/16 14:56 Urine pH 8.0 (4.6 - 8.0) 12/02/16 14:56 Ur Specific [place] 1.015 (1.005-1.030) 12/02/16 14:56 Urine Protein 100 mg/dL (NEGATIVE) H 12/02/16 14:56 Urine Glucose (UA) 500 mg/dL (NEGATIVE) H 12/02/16 14:56 Urine Ketones NEGATIVE mg/dL (NEGATIVE) 12/02/16 14:56 Urine Blood MODERATE (NEGATIVE) H 12/02/16 14:56 Urine Nitrate POSITIVE (NEGATIVE) H 12/02/16 14:56 Urine Bilirubin NEGATIVE (NEGATIVE) 12/02/16 14:56 Urine Urobilinogen 0.2 E.U./dL (0.2 - 1.0) 12/02/16 14:56 Ur Leukocyte Esterase MODERATE (NEGATIVE) H 12/02/16 14:56 Urine RBC 5-10 /hpf (0-5) H 12/02/16 14:56 Urine WBC 50-100 /hpf (0-5) H 12/02/16 14:56 Ur Epithelial Cells FEW /lpf (FEW) 12/02/16 14:56 Triple Phos Crystals MODERATE /hpf (FEW) 12/02/16 14:56 Urine Bacteria MANY /hpf (NONE SEEN) 12/02/16 14:56 Ur Random Sodium 75 mmol/L 12/03/16 06:30 Urine Creatinine 49.0 mg/dl (28.0-217.0) 12/03/16 06:30 Blood Type O POSITIVE 12/02/16 05:05 Antibody Screen NEGATIVE 12/02/16 05:05 Crossmatch See Detail 12/02/16 05:05 - Physical Exam Vitals and I&O: Vital Signs Temp 97.7 F 12/04/16 08:00 Pulse 103 12/04/16 08:00 Resp 18 12/04/16 08:00 BP 140/55 12/04/16 08:00 Pulse Ox 100 12/04/16 08:00 Intake & Output 12/03/16 12/04/16 12/04/16 18:59 06:59 18:59 Intake Total 392 955.116 7617 Output Total 700 Balance 392 972.747 4483 Weight (lbs) 55.338 kg Intake: Intake, IV Amount 392 783.730 8456 D5-0.45NS 1,000 ml @ 120 392 mls/hr IV .Q8H20M [facility] Rx# :[id number] Dextrose 5% 1,000 ml @ 653.625 0055 125 mls/hr IV .Q8H [facility] Rx #:[id number] Output: Urine 700 Other: Stool Characteristics Soft Formed Black Active Medications: Current Medications Acetaminophen (Tylenol) 650 mg PO Q6H PRN PRN Reason: Pain or Fever >101 Stop: 01/31/17 11:18 Bisacodyl (Dulcolax 5 Mg Ec Tab) 10 mg PO BID [facility] Stop: 01/31/17 16:59 Last Admin: 12/04/16 09:15 Dose: 10 mg Epoetin Esequiel (Epogen) 10,000 units SUBQ TuThSa [facility] Stop: 02/01/17 14:29 Last Admin: 12/03/16 16:01 Dose: 10,000 units Dextrose (D5w) 1,000 mls @ 125 mls/hr IV .Q8H [facility] Stop: 02/01/17 14:14 Last Admin: 12/04/16 11:49 Dose: 125 mls/hr Insulin Aspart (Novolog Insulin Sliding Scale) 0 units SUBQ ACHS [facility] PRN Reason: Protocol Stop: 01/31/17 07:29 Last Admin: 12/04/16 11:51 Dose: 11 units Miscellaneous (Vte Chemical Prophylaxis Screen/ Admission) 1 ea [facility] PRN PRN PRN Reason: PROTOCOL Stop: 01/31/17 13:38 Pantoprazole Sodium (Protonix) 40 mg IVP DAILY [facility] Stop: 02/01/17 08:59 Last Admin: 12/04/16 09:15 Dose: 40 mg Sodium Bicarbonate (Sodium Bicarbonate) 650 mg PO BID [facility] PRN Reason: Protocol Stop: 01/31/17 16:59 Last Admin: 12/04/16 09:15 Dose: 650 mg General: No acute distress, Other (Sedated, post surgery.) HEENT: Atraumatic, Mucous membr. moist/pink Neck: Supple, +2 carotid pulse wo bruit Cardiovascular: Regular rate, Normal S1, Normal S2 Lungs: Clear to auscultation, Other Abdomen: Bowel sounds, Soft, Other (PEG in place.) Extremities: Other (No edema), no Edema Neurological: Sensation intact, Other (Non ambulatory) Skin: Other (Decubit sacral ulcer stage IV), no Significant lesion Psych/Mental Status: Mood NL, Other (Sedated, post surgery) - Procedures Procedures: Procedures Procedure Code Date CHAGO MUSC/FASCIA 20 SQ CM/< 70573 10/24/16 EXCISION OF LEFT HIP MUSCLE, OPEN APPROACH [id number] 10/24/16 Assessment/Plan - Problem List Patient Problems: All Active Problems POOR ORAL INTAKE AND SWALLOWING (Acute) SACRAL AND BILATERAL BUTTOCK SKIN ULCERS (Acute) - Assessment Assessment: Bryan on CKD dehydration FTT 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 Anemia CKD - Plan Plan: Lab - Result Diagrams 12/03/16 05:35 12/03/16 05:35 Current Medications Acetaminophen (Tylenol) 650 mg PO Q6H PRN PRN Reason: Pain or Fever >101 Stop: 01/31/17 11:18 Bisacodyl (Dulcolax 5 Mg Ec Tab) 10 mg PO BID [facility] Stop: 01/31/17 16:59 Last Admin: 12/03/16 11:07 Dose: 10 mg Dextrose (D5w) 1,000 mls @ 125 mls/hr IV .Q8H [facility] Stop: 02/01/17 14:14 Insulin Aspart (Novolog Insulin Sliding Scale) 0 units SUBQ ACHS [facility] PRN Reason: Protocol Stop: 01/31/17 07:29 Last Admin: 12/03/16 12:32 Dose: 9 units Miscellaneous (Vte Chemical Prophylaxis Screen/ Admission) 1 ea MC PRN PRN PRN Reason: PROTOCOL Stop: 01/31/17 13:38 Pantoprazole Sodium (Protonix) 40 mg IVP DAILY [facility] Stop: 02/01/17 08:59 Last Admin: 12/03/16 11:07 Dose: 40 mg Sodium Bicarbonate (Sodium Bicarbonate) 650 mg PO BID [facility] PRN Reason: Protocol Stop: 01/31/17 16:59 Last Admin: 12/03/16 11:07 Dose: 650 mg Lab - Result Diagrams 12/04/16 04:50 12/04/16 04:50 kidney fnc gradually improving continue ivf of D5W Had placement of PEG start feeding tonite start epo Hgb down to 7.9 Being transfused Nutritional Asmnt/Malnutr-PDOC - Dietary Evaluation Malnutrition Findings (Please click <Entered> for more info): Nutritional Asmnt/Malnutrition Start: 12/02/16 14: 44 Text: Status: Complete Freq: Document 12/02/16 14:44 GSUN (Rec: 12/02/16 15:19 GSUN [email or web address]) Nutritional Asmnt/Malnutrition Patient General Information Nutritional Screening Consult Diagnosis AKF, sacral decubitus ulcer stage IV, HTN, DM, dementia, chronic anemia Pertinent Medical Hx/Surgical Hx CAD, CVA, dementia, psychosis, muscle atrophy, AKF, DM, decubitus ulcer stage IV Subjective Information 81 year old female from SNF. RD consult for low Elliot and elevated blood glucose. Pt was awake, unable to provide nutrition hx. Family at bedside, spoke to family and HAI Pimentel regarding nutrition plan of care, PEG placement consent obtained. Family has no other questions at this time. Elevated BUN, fisher net, K, family reported pt is not on dialysis, "possible HD today" per H&P. Per nursing adm notes , 4-5lb wt loss in 2 weeks. Per family, unaware of UBW, aware of recent wt loss, stated pt stopped eating ~3-4 days ago. Loose skin, moderate to severe muslce fat wasting to chest and clavicles. Current Diet Order/ Nutrition Support NPO Pertinent Medications Dulcolax, D5-0.45ns, Novolog Pertinent Labs 12/01: A1c 9H 12/02: sodium 173H, potassium 5.3H, BUN 169H, creatinie 5.8H , glucose 238H, calcium 10.8H Nutritional Hx/Data Height 1.52 m Height (Calculated Centimeters) 152.4 Current Weight (lbs) 43.545 kg Weight (Calculated Kilograms) 43.5 Weight (Calculated Grams) 20341.9 [place] Body Weight 100 Recent Weight Change Yes Weight Status Approriate GI Symptoms Usual diet at home [facility]: pureed, ALISE , [facility] Skin Integrity/Comment: Elliot 11. Sacral decubitus ulcer stage IV. Estimated Nutritional Goals Calories/Kcals/Kg IBW 100lb/45.5kg Kcals Calculated 1365-1593kcal (30-35kcal/kg) Protein Calculated 68-73g (1.4-1.6g/kg, ulcer vs renal, ?HD) Fluid: ml Per MD Nutritional Problem 3. Problem Problem Altered nutrition related laboratory values related to Etiology DM aeb Signs/Symptoms: A1c 9H, glucose 238H 2. Problem Problem Increased kcal and prot needs related to Etiology skin integrity, recent weight loss aeb Signs/Symptoms: Sacral decubitus ulcer stage IV, wt loss 4-5lb in 2 weeks per nursing adm notes, moderate to seevre muslce/fat wasting to chest and clavicles 1. Problem Problem Impaired nutrient utilization related to Etiology acute kidney injury aeb Signs/Symptoms: potassium 5.3H, BUN 169H, creatinie 5.8H, calcium 10.8H Intervention/Recommendation Comments 1. Discussed enteral nutrition with family. Family has no further questions at this time . 2. When medically feasible to initiate feeding, recommend Novasource Renal at 30ml/hr x 24hrs, providing 720ml total volume, 1440kcal, 65g protein. Initiate at 10ml/hr for first 24 hrs, monitor for refeeding syndrome and tolerance, increase by 5ml/hr q12hrs until goal. 3. Recommend 1 packet Arginaid daily via tube for wound healing. 4. Monitor weight closely. Hx 4-5lb wt loss in 2 weeks per nursing adm note. Expected Outcomes/Goals Expected Outcomes/Goals 1. Pt to meet at least 75% of estimated nutritinoal eneds on tube feeding with tolerance.
--- NOTE | 2016-12-04 14:59 | General Progress Note ---
Subjective - Review of Systems Service Date: 12/04/16 Subjective: more awake, comfortable Objective - Results Result Diagrams: 12/04/16 04:50 12/04/16 04:50 Recent Labs: Laboratory Last Values WBC 7.7 Th/cmm (4.8-10.8) 12/04/16 04:50 Corrected WBC (auto) 8.8 Th/cmm (4.8-10.8) 12/01/16 18:25 RBC 2.75 Mil/cmm (3.80-5.20) L 12/04/16 04:50 Hgb 7.9 gm/dL (12-16) L* 12/04/16 04:50 Hct 24.1 % (41.0-60) L 12/04/16 04:50 MCV 87.6 fl (81-100) 12/04/16 04:50 MCH 28.5 pg (27.0-31.0) 12/04/16 04:50 MCHC Differential 32.6 pg (28.0-36.0) 12/04/16 04:50 RDW 21.0 % (11.5-20.0) H 12/04/16 04:50 Plt Count 74 Th/cmm (150-400) L 12/04/16 04:50 MPV 14.6 fl 12/04/16 04:50 Neutrophils % 75.5 % (40.0-80.0) 12/02/16 05:05 Band Neutrophils % 8 % (0-10) 12/04/16 04:50 Lymphocytes % 18.4 % (20.0-50.0) L 12/02/16 05:05 Monocytes % 5.3 % (2.0-10.0) 12/02/16 05:05 Eosinophils % 0.7 % (0.0-5.0) 12/02/16 05:05 Basophils % 0.1 % (0.0-2.0) 12/02/16 05:05 Neutrophils (Manual) 77 % (40-80) 12/04/16 04:50 Lymphocytes 10 % (20-50) L 12/04/16 04:50 Monocytes 5 % (2-10) 12/04/16 04:50 Eosinophils 3 % (0-5) 12/03/16 05:35 Nucleated RBCs 5.0 % (0-0) H 12/01/16 18:25 Atypical Lymphocytes 1 % 12/01/16 18:25 Platelet Estimate SLIGHT DECREASED (NORMAL) 12/04/16 04:50 Platelet Morphology NORMAL (NORMAL) 12/01/16 18:25 Anisocytosis 2+ 12/03/16 05:35 RBC Morph Micro Appear ABNORMAL (NORMAL) 12/01/16 18:25 Eos Smear Source URINE 12/03/16 06:30 Eos Smear Total Cells NONE SEEN (NONE SEEN) 12/03/16 06:30 PT 11.2 SECONDS (9.5-11.5) 12/03/16 05:35 INR 1.08 (0.5-1.4) 12/03/16 05:35 PTT (Actin FS) 19.6 SECONDS (26.0-38.0) L 12/01/16 18:25 Sodium 160 mEq/L (136-145) H* 12/04/16 04:50 Potassium 3.9 mEq/L (3.5-5.1) 12/04/16 04:50 Chloride 135 mEq/L (98-107) H 12/04/16 04:50 Carbon Dioxide 14.2 mEq/L (21.0-31.0) L 12/04/16 04:50 Anion Gap 14.7 (7.0-16.0) 12/04/16 04:50 BUN 121 mg/dL (7-25) H* 12/04/16 04:50 Creatinine 4.5 mg/dL (0.6-1.2) H* 12/04/16 04:50 Est GFR ( Amer) TNP 12/04/16 04:50 Est GFR (Non-Af Amer) TNP 12/04/16 04:50 BUN/Creatinine Ratio 26.9 12/04/16 04:50 Glucose 425 mg/dL (70-105) H 12/04/16 04:50 POC Glucose 398 MG/DL (70 - 105) H 12/04/16 11:40 Hemoglobin A1c % 9.0 % (4.0-6.0) H 12/01/16 18:25 Whole Bld Lactic Acid 1.48 mmol/L (0.60-1.99) 12/01/16 20:58 Uric Acid 11.6 mg/dL (2.3-6.6) H 12/03/16 05:35 Calcium 9.7 mg/dL (8.6-10.3) 12/04/16 04:50 Magnesium 2.7 mg/dL (1.9-2.7) 12/03/16 05:35 Total Bilirubin 0.5 mg/dL (0.3-1.0) 12/04/16 04:50 AST 28 U/L (13-39) 12/04/16 04:50 ALT 12 U/L (7-52) 12/04/16 04:50 Alkaline Phosphatase 74 U/L (34-104) 12/04/16 04:50 Total Protein 5.2 gm/dL (6.0-8.3) L 12/04/16 04:50 Albumin 2.4 gm/dL (3.7-5.3) L 12/04/16 04:50 Globulin 2.8 gm/dL 12/04/16 04:50 Albumin/Globulin Ratio 0.9 (1.0-1.8) L 12/04/16 04:50 TSH 2.49 uIU/ml (0.34-5.60) 12/03/16 05:35 Urine Source SOTO PORT 12/02/16 14:56 Urine Color YELLOW 12/02/16 14:56 Urine Clarity HAZY (CLEAR) 12/02/16 14:56 Urine pH 8.0 (4.6 - 8.0) 12/02/16 14:56 Ur Specific [place] 1.015 (1.005-1.030) 12/02/16 14:56 Urine Protein 100 mg/dL (NEGATIVE) H 12/02/16 14:56 Urine Glucose (UA) 500 mg/dL (NEGATIVE) H 12/02/16 14:56 Urine Ketones NEGATIVE mg/dL (NEGATIVE) 12/02/16 14:56 Urine Blood MODERATE (NEGATIVE) H 12/02/16 14:56 Urine Nitrate POSITIVE (NEGATIVE) H 12/02/16 14:56 Urine Bilirubin NEGATIVE (NEGATIVE) 12/02/16 14:56 Urine Urobilinogen 0.2 E.U./dL (0.2 - 1.0) 12/02/16 14:56 Ur Leukocyte Esterase MODERATE (NEGATIVE) H 12/02/16 14:56 Urine RBC 5-10 /hpf (0-5) H 12/02/16 14:56 Urine WBC 50-100 /hpf (0-5) H 12/02/16 14:56 Ur Epithelial Cells FEW /lpf (FEW) 12/02/16 14:56 Triple Phos Crystals MODERATE /hpf (FEW) 12/02/16 14:56 Urine Bacteria MANY /hpf (NONE SEEN) 12/02/16 14:56 Ur Random Sodium 75 mmol/L 12/03/16 06:30 Urine Creatinine 49.0 mg/dl (28.0-217.0) 12/03/16 06:30 Blood Type O POSITIVE 12/02/16 05:05 Antibody Screen NEGATIVE 12/02/16 05:05 Crossmatch See Detail 12/02/16 05:05 - Physical Exam Vitals and I&O: Vital Signs Temp 97.7 F 12/04/16 08:00 Pulse 103 12/04/16 08:00 Resp 18 12/04/16 08:00 BP 140/55 12/04/16 08:00 Pulse Ox 100 12/04/16 08:00 Intake & Output 12/03/16 12/04/16 12/04/16 18:59 06:59 18:59 Intake Total 392 379.357 7019 Output Total 700 Balance 392 168.140 3560 Weight (lbs) 55.338 kg Intake: Intake, IV Amount 392 859.170 1884 D5-0.45NS 1,000 ml @ 120 392 mls/hr IV .Q8H20M [facility] Rx# :[id number] Dextrose 5% 1,000 ml @ 977.983 7078 125 mls/hr IV .Q8H [facility] Rx #:[id number] Output: Urine 700 Other: Stool Characteristics Soft Formed Black Active Medications: Current Medications Acetaminophen (Tylenol) 650 mg PO Q6H PRN PRN Reason: Pain or Fever >101 Stop: 01/31/17 11:18 Bisacodyl (Dulcolax 5 Mg Ec Tab) 10 mg PO BID [facility] Stop: 01/31/17 16:59 Last Admin: 12/04/16 09:15 Dose: 10 mg Epoetin Esequiel (Epogen) 10,000 units SUBQ TuThSa [facility] Stop: 02/01/17 14:29 Last Admin: 12/03/16 16:01 Dose: 10,000 units Dextrose (D5w) 1,000 mls @ 125 mls/hr IV .Q8H [facility] Stop: 02/01/17 14:14 Last Admin: 12/04/16 11:49 Dose: 125 mls/hr Insulin Aspart (Novolog Insulin Sliding Scale) 0 units SUBQ ACHS BRIELLE PRN Reason: Protocol Stop: 01/31/17 07:29 Last Admin: 12/04/16 11:51 Dose: 11 units Miscellaneous (Vte Chemical Prophylaxis Screen/ Admission) 1 ea MC PRN PRN PRN Reason: PROTOCOL Stop: 01/31/17 13:38 Pantoprazole Sodium (Protonix) 40 mg IVP DAILY [facility] Stop: 02/01/17 08:59 Last Admin: 12/04/16 09:15 Dose: 40 mg Sodium Bicarbonate (Sodium Bicarbonate) 650 mg PO BID [facility]LE PRN Reason: Protocol Stop: 01/31/17 16:59 Last Admin: 12/04/16 09:15 Dose: 650 mg General: No acute distress, Other (Sedated, post surgery.) HEENT: Atraumatic, Mucous membr. moist/pink Neck: Supple, +2 carotid pulse wo bruit Cardiovascular: Regular rate, Normal S1, Normal S2 Lungs: Clear to auscultation, Other Abdomen: Bowel sounds, Soft, Other (PEG in place.) Extremities: Other (No edema), no Edema Neurological: Sensation intact, Other (Non ambulatory) Skin: Other (Decubit sacral ulcer stage IV), no Significant lesion Psych/Mental Status: Mood NL, Other (Sedated, post surgery) - Procedures Procedures: Procedures Procedure Code Date CHAGO MUSC/FASCIA 20 SQ CM/< 10712 10/24/16 EXCISION OF LEFT HIP MUSCLE, OPEN APPROACH [id number] 10/24/16 Assessment/Plan - Problem List Patient Problems: All Active Problems POOR ORAL INTAKE AND SWALLOWING (Acute) SACRAL AND BILATERAL BUTTOCK SKIN ULCERS (Acute) - Assessment Assessment: Bryan on CKD dehydration FTT 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 Anemia CKD - Plan Plan: Lab - Result Diagrams 12/03/16 05:35 12/03/16 05:35 Current Medications Acetaminophen (Tylenol) 650 mg PO Q6H PRN PRN Reason: Pain or Fever >101 Stop: 01/31/17 11:18 Bisacodyl (Dulcolax 5 Mg Ec Tab) 10 mg PO BID [facility] Stop: 01/31/17 16:59 Last Admin: 12/03/16 11:07 Dose: 10 mg Dextrose (D5w) 1,000 mls @ 125 mls/hr IV .Q8H [facility] Stop: 02/01/17 14:14 Insulin Aspart (Novolog Insulin Sliding Scale) 0 units SUBQ ACHS [facility]ELLE PRN Reason: Protocol Stop: 01/31/17 07:29 Last Admin: 12/03/16 12:32 Dose: 9 units Miscellaneous (Vte Chemical Prophylaxis Screen/ Admission) 1 ea MC PRN PRN PRN Reason: PROTOCOL Stop: 01/31/17 13:38 Pantoprazole Sodium (Protonix) 40 mg IVP DAILY [facility] Stop: 02/01/17 08:59 Last Admin: 12/03/16 11:07 Dose: 40 mg Sodium Bicarbonate (Sodium Bicarbonate) 650 mg PO BID [facility] PRN Reason: Protocol Stop: 01/31/17 16:59 Last Admin: 12/03/16 11:07 Dose: 650 mg Lab - Result Diagrams 12/04/16 04:50 12/04/16 04:50 kidney fnc gradually improving continue ivf of D5W Had placement of PEG start feeding tonite start epo Hgb down to 7.9 Being transfused Nutritional Asmnt/Malnutr-PDOC - Dietary Evaluation Malnutrition Findings (Please click <Entered> for more info): Nutritional Asmnt/Malnutrition Start: 12/02/16 14: 44 Text: Status: Complete Freq: Document 12/02/16 14:44 GSUN (Rec: 12/02/16 15:19 GSUN [email or web address]) Nutritional Asmnt/Malnutrition Patient General Information Nutritional Screening Consult Diagnosis AKF, sacral decubitus ulcer stage IV, HTN, DM, dementia, chronic anemia Pertinent Medical Hx/Surgical Hx CAD, CVA, dementia, psychosis, muscle atrophy, AKF, DM, decubitus ulcer stage IV Subjective Information 81 year old female from SNF. RD consult for low Elliot and elevated blood glucose. Pt was awake, unable to provide nutrition hx. Family at bedside, spoke to family and HAI Pimentel regarding nutrition plan of care, PEG placement consent obtained. Family has no other questions at this time. 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 Per nursing adm notes , 4-5lb wt loss in 2 weeks. Per family, unaware of UBW, aware of recent wt loss, stated pt stopped eating ~3-4 days ago. Loose skin, moderate to severe muslce fat wasting to chest and clavicles. Current Diet Order/ Nutrition Support NPO Pertinent Medications Dulcolax, D5-0.45ns, Novolog Pertinent Labs 12/01: A1c 9H 12/02: sodium 173H, potassium 5.3H, BUN 169H, creatinie 5.8H , glucose 238H, calcium 10.8H Nutritional Hx/Data Height 1.52 m Height (Calculated Centimeters) 152.4 Current Weight (lbs) 43.545 kg Weight (Calculated Kilograms) 43.5 Weight (Calculated Grams) 07559.9 [place] Body Weight 100 Recent Weight Change Yes Weight Status Approriate GI Symptoms Usual diet at home [facility]: pureed, ALISE , [facility] Skin Integrity/Comment: Elliot 11. Sacral decubitus ulcer stage IV. Estimated Nutritional Goals Calories/Kcals/Kg IBW 100lb/45.5kg Kcals Calculated 1365-1593kcal (30-35kcal/kg) Protein Calculated 68-73g (1.4-1.6g/kg, ulcer vs renal, ?HD) Fluid: ml Per MD Nutritional Problem 3. Problem Problem Altered nutrition related laboratory values related to Etiology DM aeb Signs/Symptoms: A1c 9H, glucose 238H 2. Problem Problem Increased kcal and prot needs related to Etiology skin integrity, recent weight loss aeb Signs/Symptoms: Sacral decubitus ulcer stage IV, wt loss 4-5lb in 2 weeks per nursing adm notes, moderate to seevre muslce/fat wasting to chest and clavicles 1. Problem Problem Impaired nutrient utilization related to Etiology acute kidney injury aeb Signs/Symptoms: potassium 5.3H, BUN 169H, creatinie 5.8H, calcium 10.8H Intervention/Recommendation Comments 1. Discussed enteral nutrition with family. Family has no further questions at this time . 2. When medically feasible to initiate feeding, recommend Novasource Renal at 30ml/hr x 24hrs, providing 720ml total volume, 1440kcal, 65g protein. Initiate at 10ml/hr for first 24 hrs, monitor for refeeding syndrome and tolerance, increase by 5ml/hr q12hrs until goal. 3. Recommend 1 packet Arginaid daily via tube for wound healing. 4. Monitor weight closely. Hx 4-5lb wt loss in 2 weeks per nursing adm note. Expected Outcomes/Goals Expected Outcomes/Goals 1. Pt to meet at least 75% of estimated nutritinoal eneds on tube feeding with tolerance.
--- NOTE | 2016-12-04 14:59 | General Progress Note ---
Subjective - Review of Systems Service Date: 12/04/16 Subjective: more awake, comfortable Objective - Results Result Diagrams: 12/04/16 04:50 12/04/16 04:50 Recent Labs: Laboratory Last Values WBC 7.7 Th/cmm (4.8-10.8) 12/04/16 04:50 Corrected WBC (auto) 8.8 Th/cmm (4.8-10.8) 12/01/16 18:25 RBC 2.75 Mil/cmm (3.80-5.20) L 12/04/16 04:50 Hgb 7.9 gm/dL (12-16) L* 12/04/16 04:50 Hct 24.1 % (41.0-60) L 12/04/16 04:50 MCV 87.6 fl (81-100) 12/04/16 04:50 MCH 28.5 pg (27.0-31.0) 12/04/16 04:50 MCHC Differential 32.6 pg (28.0-36.0) 12/04/16 04:50 RDW 21.0 % (11.5-20.0) H 12/04/16 04:50 Plt Count 74 Th/cmm (150-400) L 12/04/16 04:50 MPV 14.6 fl 12/04/16 04:50 Neutrophils % 75.5 % (40.0-80.0) 12/02/16 05:05 Band Neutrophils % 8 % (0-10) 12/04/16 04:50 Lymphocytes % 18.4 % (20.0-50.0) L 12/02/16 05:05 Monocytes % 5.3 % (2.0-10.0) 12/02/16 05:05 Eosinophils % 0.7 % (0.0-5.0) 12/02/16 05:05 Basophils % 0.1 % (0.0-2.0) 12/02/16 05:05 Neutrophils (Manual) 77 % (40-80) 12/04/16 04:50 Lymphocytes 10 % (20-50) L 12/04/16 04:50 Monocytes 5 % (2-10) 12/04/16 04:50 Eosinophils 3 % (0-5) 12/03/16 05:35 Nucleated RBCs 5.0 % (0-0) H 12/01/16 18:25 Atypical Lymphocytes 1 % 12/01/16 18:25 Platelet Estimate SLIGHT DECREASED (NORMAL) 12/04/16 04:50 Platelet Morphology NORMAL (NORMAL) 12/01/16 18:25 Anisocytosis 2+ 12/03/16 05:35 RBC Morph Micro Appear ABNORMAL (NORMAL) 12/01/16 18:25 Eos Smear Source URINE 12/03/16 06:30 Eos Smear Total Cells NONE SEEN (NONE SEEN) 12/03/16 06:30 PT 11.2 SECONDS (9.5-11.5) 12/03/16 05:35 INR 1.08 (0.5-1.4) 12/03/16 05:35 PTT (Actin FS) 19.6 SECONDS (26.0-38.0) L 12/01/16 18:25 Sodium 160 mEq/L (136-145) H* 12/04/16 04:50 Potassium 3.9 mEq/L (3.5-5.1) 12/04/16 04:50 Chloride 135 mEq/L (98-107) H 12/04/16 04:50 Carbon Dioxide 14.2 mEq/L (21.0-31.0) L 12/04/16 04:50 Anion Gap 14.7 (7.0-16.0) 12/04/16 04:50 BUN 121 mg/dL (7-25) H* 12/04/16 04:50 Creatinine 4.5 mg/dL (0.6-1.2) H* 12/04/16 04:50 Est GFR ( Amer) TNP 12/04/16 04:50 Est GFR (Non-Af Amer) TNP 12/04/16 04:50 BUN/Creatinine Ratio 26.9 12/04/16 04:50 Glucose 425 mg/dL (70-105) H 12/04/16 04:50 POC Glucose 398 MG/DL (70 - 105) H 12/04/16 11:40 Hemoglobin A1c % 9.0 % (4.0-6.0) H 12/01/16 18:25 Whole Bld Lactic Acid 1.48 mmol/L (0.60-1.99) 12/01/16 20:58 Uric Acid 11.6 mg/dL (2.3-6.6) H 12/03/16 05:35 Calcium 9.7 mg/dL (8.6-10.3) 12/04/16 04:50 Magnesium 2.7 mg/dL (1.9-2.7) 12/03/16 05:35 Total Bilirubin 0.5 mg/dL (0.3-1.0) 12/04/16 04:50 AST 28 U/L (13-39) 12/04/16 04:50 ALT 12 U/L (7-52) 12/04/16 04:50 Alkaline Phosphatase 74 U/L (34-104) 12/04/16 04:50 Total Protein 5.2 gm/dL (6.0-8.3) L 12/04/16 04:50 Albumin 2.4 gm/dL (3.7-5.3) L 12/04/16 04:50 Globulin 2.8 gm/dL 12/04/16 04:50 Albumin/Globulin Ratio 0.9 (1.0-1.8) L 12/04/16 04:50 TSH 2.49 uIU/ml (0.34-5.60) 12/03/16 05:35 Urine Source SOTO PORT 12/02/16 14:56 Urine Color YELLOW 12/02/16 14:56 Urine Clarity HAZY (CLEAR) 12/02/16 14:56 Urine pH 8.0 (4.6 - 8.0) 12/02/16 14:56 Ur Specific [place] 1.015 (1.005-1.030) 12/02/16 14:56 Urine Protein 100 mg/dL (NEGATIVE) H 12/02/16 14:56 Urine Glucose (UA) 500 mg/dL (NEGATIVE) H 12/02/16 14:56 Urine Ketones NEGATIVE mg/dL (NEGATIVE) 12/02/16 14:56 Urine Blood MODERATE (NEGATIVE) H 12/02/16 14:56 Urine Nitrate POSITIVE (NEGATIVE) H 12/02/16 14:56 Urine Bilirubin NEGATIVE (NEGATIVE) 12/02/16 14:56 Urine Urobilinogen 0.2 E.U./dL (0.2 - 1.0) 12/02/16 14:56 Ur Leukocyte Esterase MODERATE (NEGATIVE) H 12/02/16 14:56 Urine RBC 5-10 /hpf (0-5) H 12/02/16 14:56 Urine WBC 50-100 /hpf (0-5) H 12/02/16 14:56 Ur Epithelial Cells FEW /lpf (FEW) 12/02/16 14:56 Triple Phos Crystals MODERATE /hpf (FEW) 12/02/16 14:56 Urine Bacteria MANY /hpf (NONE SEEN) 12/02/16 14:56 Ur Random Sodium 75 mmol/L 12/03/16 06:30 Urine Creatinine 49.0 mg/dl (28.0-217.0) 12/03/16 06:30 Blood Type O POSITIVE 12/02/16 05:05 Antibody Screen NEGATIVE 12/02/16 05:05 Crossmatch See Detail 12/02/16 05:05 - Physical Exam Vitals and I&O: Vital Signs Temp 97.7 F 12/04/16 08:00 Pulse 103 12/04/16 08:00 Resp 18 12/04/16 08:00 BP 140/55 12/04/16 08:00 Pulse Ox 100 12/04/16 08:00 Intake & Output 12/03/16 12/04/16 12/04/16 18:59 06:59 18:59 Intake Total 392 781.173 2095 Output Total 700 Balance 392 220.799 3101 Weight (lbs) 55.338 kg Intake: Intake, IV Amount 392 376.280 7892 D5-0.45NS 1,000 ml @ 120 392 mls/hr IV .Q8H20M [facility] Rx# :[id number] Dextrose 5% 1,000 ml @ 822.004 8020 125 mls/hr IV .Q8H [facility] Rx #:[id number] Output: Urine 700 Other: Stool Characteristics Soft Formed Black Active Medications: Current Medications Acetaminophen (Tylenol) 650 mg PO Q6H PRN PRN Reason: Pain or Fever >101 Stop: 01/31/17 11:18 Bisacodyl (Dulcolax 5 Mg Ec Tab) 10 mg PO BID [facility] Stop: 01/31/17 16:59 Last Admin: 12/04/16 09:15 Dose: 10 mg Epoetin Esequiel (Epogen) 10,000 units SUBQ TuThSa [facility] Stop: 02/01/17 14:29 Last Admin: 12/03/16 16:01 Dose: 10,000 units Dextrose (D5w) 1,000 mls @ 125 mls/hr IV .Q8H [facility] Stop: 02/01/17 14:14 Last Admin: 12/04/16 11:49 Dose: 125 mls/hr Insulin Aspart (Novolog Insulin Sliding Scale) 0 units SUBQ ACHS BRIELLE PRN Reason: Protocol Stop: 01/31/17 07:29 Last Admin: 12/04/16 11:51 Dose: 11 units Miscellaneous (Vte Chemical Prophylaxis Screen/ Admission) 1 ea MC PRN PRN PRN Reason: PROTOCOL Stop: 01/31/17 13:38 Pantoprazole Sodium (Protonix) 40 mg IVP DAILY [facility] Stop: 02/01/17 08:59 Last Admin: 12/04/16 09:15 Dose: 40 mg Sodium Bicarbonate (Sodium Bicarbonate) 650 mg PO BID [facility] PRN Reason: Protocol Stop: 01/31/17 16:59 Last Admin: 12/04/16 09:15 Dose: 650 mg General: No acute distress, Other (Sedated, post surgery.) HEENT: Atraumatic, Mucous membr. moist/pink Neck: Supple, +2 carotid pulse wo bruit Cardiovascular: Regular rate, Normal S1, Normal S2 Lungs: Clear to auscultation, Other Abdomen: Bowel sounds, Soft, Other (PEG in place.) Extremities: Other (No edema), no Edema Neurological: Sensation intact, Other (Non ambulatory) Skin: Other (Decubit sacral ulcer stage IV), no Significant lesion Psych/Mental Status: Mood NL, Other (Sedated, post surgery) - Procedures Procedures: Procedures Procedure Code Date CHAGO MUSC/FASCIA 20 SQ CM/< 25667 10/24/16 EXCISION OF LEFT HIP MUSCLE, OPEN APPROACH [id number] 10/24/16 Assessment/Plan - Problem List Patient Problems: All Active Problems POOR ORAL INTAKE AND SWALLOWING (Acute) SACRAL AND BILATERAL BUTTOCK SKIN ULCERS (Acute) - Assessment Assessment: Bryan on CKD dehydration FTT 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 Anemia CKD - Plan Plan: Lab - Result Diagrams 12/03/16 05:35 12/03/16 05:35 Current Medications Acetaminophen (Tylenol) 650 mg PO Q6H PRN PRN Reason: Pain or Fever >101 Stop: 01/31/17 11:18 Bisacodyl (Dulcolax 5 Mg Ec Tab) 10 mg PO BID [facility] Stop: 01/31/17 16:59 Last Admin: 12/03/16 11:07 Dose: 10 mg Dextrose (D5w) 1,000 mls @ 125 mls/hr IV .Q8H [facility] Stop: 02/01/17 14:14 Insulin Aspart (Novolog Insulin Sliding Scale) 0 units SUBQ ACHS [facility] PRN Reason: Protocol Stop: 01/31/17 07:29 Last Admin: 12/03/16 12:32 Dose: 9 units Miscellaneous (Vte Chemical Prophylaxis Screen/ Admission) 1 ea MC PRN PRN PRN Reason: PROTOCOL Stop: 01/31/17 13:38 Pantoprazole Sodium (Protonix) 40 mg IVP DAILY [facility] Stop: 02/01/17 08:59 Last Admin: 12/03/16 11:07 Dose: 40 mg Sodium Bicarbonate (Sodium Bicarbonate) 650 mg PO BID [facility] PRN Reason: Protocol Stop: 01/31/17 16:59 Last Admin: 12/03/16 11:07 Dose: 650 mg Lab - Result Diagrams 12/04/16 04:50 12/04/16 04:50 kidney fnc gradually improving continue ivf of D5W Had placement of PEG start feeding tonite start epo Hgb down to 7.9 Being transfused Nutritional Asmnt/Malnutr-PDOC - Dietary Evaluation Malnutrition Findings (Please click <Entered> for more info): Nutritional Asmnt/Malnutrition Start: 12/02/16 14: 44 Text: Status: Complete Freq: Document 12/02/16 14:44 GSUN (Rec: 12/02/16 15:19 GSUN [id number]) Nutritional Asmnt/Malnutrition Patient General Information Nutritional Screening Consult Diagnosis AKF, sacral decubitus ulcer stage IV, HTN, DM, dementia, chronic anemia Pertinent Medical Hx/Surgical Hx CAD, CVA, dementia, psychosis, muscle atrophy, AKF, DM, decubitus ulcer stage IV Subjective Information 81 year old female from SNF. RD consult for low Elliot and elevated blood glucose. Pt was awake, unable to provide nutrition hx. Family at bedside, spoke to family and HAI Pimentel regarding nutrition plan of care, PEG placement consent obtained. Family has no other questions at this time. 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 Per nursing adm notes , 4-5lb wt loss in 2 weeks. Per family, unaware of UBW, aware of recent wt loss, stated pt stopped eating ~3-4 days ago. Loose skin, moderate to severe muslce fat wasting to chest and clavicles. Current Diet Order/ Nutrition Support NPO Pertinent Medications Dulcolax, D5-0.45ns, Novolog Pertinent Labs 12/01: A1c 9H 12/02: sodium 173H, potassium 5.3H, BUN 169H, creatinie 5.8H , glucose 238H, calcium 10.8H Nutritional Hx/Data Height 1.52 m Height (Calculated Centimeters) 152.4 Current Weight (lbs) 43.545 kg Weight (Calculated Kilograms) 43.5 Weight (Calculated Grams) 17861.9 [place] Body Weight 100 Recent Weight Change Yes Weight Status Approriate GI Symptoms Usual diet at home [facility]: pureed, ALISE , [facility] Skin Integrity/Comment: Elliot 11. Sacral decubitus ulcer stage IV. Estimated Nutritional Goals Calories/Kcals/Kg IBW 100lb/45.5kg Kcals Calculated 1365-1593kcal (30-35kcal/kg) Protein Calculated 68-73g (1.4-1.6g/kg, ulcer vs renal, ?HD) Fluid: ml Per MD Nutritional Problem 3. Problem Problem Altered nutrition related laboratory values related to Etiology DM aeb Signs/Symptoms: A1c 9H, glucose 238H 2. Problem Problem Increased kcal and prot needs related to Etiology skin integrity, recent weight loss aeb Signs/Symptoms: Sacral decubitus ulcer stage IV, wt loss 4-5lb in 2 weeks per nursing adm notes, moderate to seevre muslce/fat wasting to chest and clavicles 1. Problem Problem Impaired nutrient utilization related to Etiology acute kidney injury aeb Signs/Symptoms: potassium 5.3H, BUN 169H, creatinie 5.8H, calcium 10.8H Intervention/Recommendation Comments 1. Discussed enteral nutrition with family. Family has no further questions at this time . 2. When medically feasible to initiate feeding, recommend Novasource Renal at 30ml/hr x 24hrs, providing 720ml total volume, 1440kcal, 65g protein. Initiate at 10ml/hr for first 24 hrs, monitor for refeeding syndrome and tolerance, increase by 5ml/hr q12hrs until goal. 3. Recommend 1 packet Arginaid daily via tube for wound healing. 4. Monitor weight closely. Hx 4-5lb wt loss in 2 weeks per nursing adm note. Expected Outcomes/Goals Expected Outcomes/Goals 1. Pt to meet at least 75% of estimated nutritinoal eneds on tube feeding with tolerance.
[2016-12-05 05:28] LABS: % BASOPHILS 0.1 % (0.0-2.0); % EOSINOPHILS 1.7 % (0.0-5.0); % LYMPHOCYTES 14.5 % (20.0-50.0); % MONOCYTES 4.7 % (2.0-10.0); EOSINOPHILE ABSOLUTE 0.2 Th/cmm (0.1-0.4); LYMPHOCYTE ABSOLUTE 1.3 Th/cmm (1.5-3.0); MEAN CELL VOLUME 88.1 fl (81-100); MEAN CORPUSCULAR HEMOGLOBIN 28.7 pg (27.0-31.0); MEAN CORPUSCULAR HGB CONC 32.6 pg (28.0-36.0); MEAN PLATELET VOLUME 11.5 fl; MONOCYTE ABSOLUTE 0.4 Th/cmm (0.3-1.0); RED BLOOD COUNT 3.55 Mil/cmm (3.80-5.20); RED CELL DISTRIBUTION WIDTH 18.6 % (11.5-20.0); WHITE BLOOD COUNT 8.9 Th/cmm (4.8-10.8)
[2016-12-05 05:29] LABS: HEMATOCRIT 31.2 % (41.0-60); HEMOGLOBIN 10.2 gm/dL (12-16)
[2016-12-05 05:40] LABS: PLATELET COUNT 75 Th/cmm (150-400)
[2016-12-05 05:44] LABS: ALB/GLOB RATIO 0.8 (1.0-1.8); ALBUMIN 2.4 gm/dL (3.7-5.3); ALKALINE PHOSPHATASE 86 U/L (34-104); ANION GAP 12.3 (7.0-16.0); BILIRUBIN,TOTAL 0.5 mg/dL (0.3-1.0); CALCIUM SERUM 9.6 mg/dL (8.6-10.3); CHLORIDE 122 mEq/L (98-107); CREATININE - SERUM 3.8 mg/dL (0.6-1.2); POTASSIUM SERUM 3.3 mEq/L (3.5-5.1); SGOT 9 U/L (13-39); SGPT/ALT 3 U/L (7-52); SODIUM SERUM 146 mEq/L (136-145); TOTAL PROTEIN,SERUM 5.4 gm/dL (6.0-8.3)
[2016-12-05 06:08] LABS: GLUCOSE 471 mg/dL (70-105)
[2016-12-05 06:09] LABS: BUN - UREA NITROGEN 102 mg/dL (7-25)
[2016-12-05] MEDS: Dextrose 5% 1,000 ML IV SCH ×3 (06:10→06:18)
[2016-12-05] MEDS: INSULIN ASPART SLIDING SCALE 100 UNITS/ML UNIT SUBQ SCH ×4 (06:30→21:29)
[2016-12-05] MEDS ORDERED: INSULIN HUMAN REGULAR 100 UNITS/ML UNIT ONE (07:46)
[2016-12-05] MEDS ORDERED: Meperidine 50 mg/mL 1mL Syr ONE (07:46)
[2016-12-05] MEDS ORDERED: Midazolam 1mg/ml 2 ml vial IV ONE (07:46)
[2016-12-05] MEDS ORDERED: Piperacillin Sodium/Tazobact 3.375 gm Vial IV ONE (08:29)
--- NOTE | 2016-12-05 08:36 | General Progress Note ---
Subjective - Review of Systems Service Date: 12/05/16 Subjective: Patient non verbal. Objective - Results Result Diagrams: 12/05/16 04:50 12/05/16 04:50 Recent Labs: Laboratory Last Values WBC 8.9 Th/cmm (4.8-10.8) 12/05/16 04:50 Corrected WBC (auto) 8.8 Th/cmm (4.8-10.8) 12/01/16 18:25 RBC 3.55 Mil/cmm (3.80-5.20) L 12/05/16 04:50 Hgb 10.2 gm/dL (12-16) L D 12/05/16 04:50 Hct 31.2 % (41.0-60) L D 12/05/16 04:50 MCV 88.1 fl (81-100) 12/05/16 04:50 MCH 28.7 pg (27.0-31.0) 12/05/16 04:50 MCHC Differential 32.6 pg (28.0-36.0) 12/05/16 04:50 RDW 18.6 % (11.5-20.0) 12/05/16 04:50 Plt Count 75 Th/cmm (150-400) L 12/05/16 04:50 MPV 11.5 fl 12/05/16 04:50 Neutrophils % 79.0 % (40.0-80.0) 12/05/16 04:50 Band Neutrophils % 8 % (0-10) 12/04/16 04:50 Lymphocytes % 14.5 % (20.0-50.0) L 12/05/16 04:50 Monocytes % 4.7 % (2.0-10.0) 12/05/16 04:50 Eosinophils % 1.7 % (0.0-5.0) 12/05/16 04:50 Basophils % 0.1 % (0.0-2.0) 12/05/16 04:50 Neutrophils (Manual) 77 % (40-80) 12/04/16 04:50 Lymphocytes 10 % (20-50) L 12/04/16 04:50 Monocytes 5 % (2-10) 12/04/16 04:50 Eosinophils 3 % (0-5) 12/03/16 05:35 Nucleated RBCs 5.0 % (0-0) H 12/01/16 18:25 Atypical Lymphocytes 1 % 12/01/16 18:25 Platelet Estimate SLIGHT DECREASED (NORMAL) 12/04/16 04:50 Platelet Morphology NORMAL (NORMAL) 12/01/16 18:25 Anisocytosis 2+ 12/03/16 05:35 RBC Morph Micro Appear ABNORMAL (NORMAL) 12/01/16 18:25 Eos Smear Source URINE 12/03/16 06:30 Eos Smear Total Cells NONE SEEN (NONE SEEN) 12/03/16 06:30 PT 11.2 SECONDS (9.5-11.5) 12/03/16 05:35 INR 1.08 (0.5-1.4) 12/03/16 05:35 PTT (Actin FS) 19.6 SECONDS (26.0-38.0) L 12/01/16 18:25 Sodium 146 mEq/L (136-145) H 12/05/16 04:50 Potassium 3.3 mEq/L (3.5-5.1) L 12/05/16 04:50 Chloride 122 mEq/L (98-107) H 12/05/16 04:50 Carbon Dioxide 15.0 mEq/L (21.0-31.0) L 12/05/16 04:50 Anion Gap 12.3 (7.0-16.0) 12/05/16 04:50 BUN 102 mg/dL (7-25) H* 12/05/16 04:50 Creatinine 3.8 mg/dL (0.6-1.2) H 12/05/16 04:50 Est GFR ( Amer) TNP 12/05/16 04:50 Est GFR (Non-Af Amer) TNP 12/05/16 04:50 BUN/Creatinine Ratio 26.8 12/05/16 04:50 Glucose 471 mg/dL (70-105) H* 12/05/16 04:50 POC Glucose 415 MG/DL (70 - 105) H 12/05/16 07:58 Hemoglobin A1c % 9.0 % (4.0-6.0) H 12/01/16 18:25 Whole Bld Lactic Acid 1.48 mmol/L (0.60-1.99) 12/01/16 20:58 Uric Acid 11.6 mg/dL (2.3-6.6) H 12/03/16 05:35 Calcium 9.6 mg/dL (8.6-10.3) 12/05/16 04:50 Magnesium 2.7 mg/dL (1.9-2.7) 12/03/16 05:35 Total Bilirubin 0.5 mg/dL (0.3-1.0) 12/05/16 04:50 AST 9 U/L (13-39) L 12/05/16 04:50 ALT 3 U/L (7-52) L 12/05/16 04:50 Alkaline Phosphatase 86 U/L (34-104) 12/05/16 04:50 Total Protein 5.4 gm/dL (6.0-8.3) L 12/05/16 04:50 Albumin 2.4 gm/dL (3.7-5.3) L 12/05/16 04:50 Globulin 3.0 gm/dL 12/05/16 04:50 Albumin/Globulin Ratio 0.8 (1.0-1.8) L 12/05/16 04:50 TSH 2.49 uIU/ml (0.34-5.60) 12/03/16 05:35 Urine Source SOTO PORT 12/02/16 14:56 Urine Color YELLOW 12/02/16 14:56 Urine Clarity HAZY (CLEAR) 12/02/16 14:56 Urine pH 8.0 (4.6 - 8.0) 12/02/16 14:56 Ur Specific [place] 1.015 (1.005-1.030) 12/02/16 14:56 Urine Protein 100 mg/dL (NEGATIVE) H 12/02/16 14:56 Urine Glucose (UA) 500 mg/dL (NEGATIVE) H 12/02/16 14:56 Urine Ketones NEGATIVE mg/dL (NEGATIVE) 12/02/16 14:56 Urine Blood MODERATE (NEGATIVE) H 12/02/16 14:56 Urine Nitrate POSITIVE (NEGATIVE) H 12/02/16 14:56 Urine Bilirubin NEGATIVE (NEGATIVE) 12/02/16 14:56 Urine Urobilinogen 0.2 E.U./dL (0.2 - 1.0) 12/02/16 14:56 Ur Leukocyte Esterase MODERATE (NEGATIVE) H 12/02/16 14:56 Urine RBC 5-10 /hpf (0-5) H 12/02/16 14:56 Urine WBC 50-100 /hpf (0-5) H 12/02/16 14:56 Ur Epithelial Cells FEW /lpf (FEW) 12/02/16 14:56 Triple Phos Crystals MODERATE /hpf (FEW) 12/02/16 14:56 Urine Bacteria MANY /hpf (NONE SEEN) 12/02/16 14:56 Ur Random Sodium 75 mmol/L 12/03/16 06:30 Urine Creatinine 49.0 mg/dl (28.0-217.0) 12/03/16 06:30 Blood Type O POSITIVE 12/02/16 05:05 Antibody Screen NEGATIVE 12/02/16 05:05 Crossmatch See Detail 12/02/16 05:05 - Physical Exam Vitals and I&O: Vital Signs Temp 98.5 F 12/05/16 04:00 Pulse 89 12/05/16 04:00 Resp 18 12/05/16 04:00 BP 144/71 12/05/16 04:00 Pulse Ox 96 12/05/16 04:00 Intake & Output 12/04/16 12/05/16 12/05/16 18:59 06:59 18:59 Intake Total 1000 3652.083 Output Total 1450 Balance 1000 2202.083 Weight (lbs) 53.07 kg Intake: Intake, IV Amount 1000 3002.083 Dextrose 5% 1,000 ml @ 1000 2002.083 125 mls/hr IV .Q8H [facility] Rx #:[id number] Tube Feeding 300 Blood Product 250 Other 100 Output: Urine 1450 Other: # Bowel Movements 2 Stool Characteristics Soft Soft Formed Formed Black Black Active Medications: Current Medications Acetaminophen (Tylenol) 650 mg PO Q6H PRN PRN Reason: Pain or Fever >101 Stop: 01/31/17 11:18 Bisacodyl (Dulcolax 5 Mg Ec Tab) 10 mg PO BID [facility] Stop: 01/31/17 16:59 Last Admin: 12/04/16 17:24 Dose: 10 mg Epoetin Esequiel (Epogen) 10,000 units SUBQ TuThSa [facility] Stop: 02/01/17 14:29 Last Admin: 12/03/16 16:01 Dose: 10,000 units Dextrose (D5w) 1,000 mls @ 125 mls/hr IV .Q8H [facility] Stop: 02/01/17 14:14 Last Admin: 12/05/16 06:18 Dose: 125 mls/hr Piperacillin Sod/Tazobactam (Sod 3.375 gm/ Dextrose) 50 mls @ 100 mls/hr IV Q8H [facility] Stop: 02/03/17 08:14 Metronidazole 500 mg/ (Miscellaneous) 100 mls @ 100 mls/hr IV Q8H [facility] Stop: 02/03/17 08:14 Insulin Aspart (Novolog Insulin Sliding Scale) 0 units SUBQ ACHS BRIELLE PRN Reason: Protocol Stop: 01/31/17 07:29 Last Admin: 12/05/16 06:30 Dose: Not Given Miscellaneous (Vte Chemical Prophylaxis Screen/ Admission) 1 ea MC PRN PRN PRN Reason: PROTOCOL Stop: 01/31/17 13:38 Pantoprazole Sodium (Protonix) 40 mg IVP DAILY [facility] Stop: 02/01/17 08:59 Last Admin: 12/04/16 09:15 Dose: 40 mg Sodium Bicarbonate (Sodium Bicarbonate) 650 mg PO BID BRIELLE PRN Reason: Protocol Stop: 01/31/17 16:59 Last Admin: 12/04/16 17:24 Dose: 650 mg General: No acute distress, Other (Sedated, post surgery.) HEENT: Atraumatic, Mucous membr. moist/pink Neck: Supple, +2 carotid pulse wo bruit Cardiovascular: Regular rate, Normal S1, Normal S2 Lungs: Clear to auscultation, Other Abdomen: Bowel sounds, Soft, Other (PEG in place.) Extremities: Other (No edema), no Edema Neurological: Sensation intact, Other (Non ambulatory) Skin: Other (Decubit sacral ulcer stage IV), no Significant lesion Psych/Mental Status: Mood NL, Other (Sedated, post surgery) - Procedures Procedures: Procedures Procedure Code Date CHAGO MUSC/FASCIA 20 SQ CM/< 57830 10/24/16 EXCISION OF LEFT HIP MUSCLE, OPEN APPROACH [id number] 10/24/16 Assessment/Plan - Problem List Patient Problems: All Active Problems POOR ORAL INTAKE AND SWALLOWING (Acute) SACRAL AND BILATERAL BUTTOCK SKIN ULCERS (Acute) - Assessment Assessment: Current Active Problems Problem Status Onset POOR ORAL INTAKE AND SWALLOWING Acute Patient is awake, non verbal, in no acute distress. Na, Creatinine improving. Today will have ulcer debridament. Dx: Hypernatremia, AKF, Chronic anemia, Sacral decubitus ulcer stage IV, HTN, DM, Dementia - Plan Plan: PEG in place, fedding started. Already seen by Nepro, GI, and surgery. NA, and Creatinine improving. Case discussed with family. Blood transfusion is done. Today Will have ulcer debridament. Will continue to monitor. Nutritional Asmnt/Malnutr-PDOC - Dietary Evaluation Malnutrition Findings (Please click <Entered> for more info): Nutritional Asmnt/Malnutrition Start: 12/02/16 14: 44 Text: Status: Complete Freq: Document 12/02/16 14:44 GSUN (Rec: 12/02/16 15:19 GSUN [email or web address]) Nutritional Asmnt/Malnutrition Patient General Information Nutritional Screening Consult Diagnosis AKF, sacral decubitus ulcer stage IV, HTN, DM, dementia, chronic anemia Pertinent Medical Hx/Surgical Hx CAD, CVA, dementia, psychosis, muscle atrophy, AKF, DM, decubitus ulcer stage IV Subjective Information 81 year old female from SNF. RD consult for low Elliot and elevated blood glucose. Pt was awake, unable to provide nutrition hx. Family at bedside, spoke to family and RN Loren regarding nutrition plan of care, PEG placement consent obtained. Family has no other questions at this time. 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 Per nursing adm notes , 4-5lb wt loss in 2 weeks. Per family, unaware of UBW, aware of recent wt loss, stated pt stopped eating ~3-4 days ago. Loose skin, moderate to severe muslce fat wasting to chest and clavicles. Current Diet Order/ Nutrition Support NPO Pertinent Medications Dulcolax, D5-0.45ns, Novolog Pertinent Labs 12/01: A1c 9H 12/02: sodium 173H, potassium 5.3H, BUN 169H, creatinie 5.8H , glucose 238H, calcium 10.8H Nutritional Hx/Data Height 1.52 m Height (Calculated Centimeters) 152.4 Current Weight (lbs) 43.545 kg Weight (Calculated Kilograms) 43.5 Weight (Calculated Grams) 34156.9 [place] Body Weight 100 Recent Weight Change Yes Weight Status Approriate GI Symptoms Usual diet at home [facility]: pureed, ALISE , [facility] Skin Integrity/Comment: Elliot 11. Sacral decubitus ulcer stage IV. Estimated Nutritional Goals Calories/Kcals/Kg IBW 100lb/45.5kg Kcals Calculated 1365-1593kcal (30-35kcal/kg) Protein Calculated 68-73g (1.4-1.6g/kg, ulcer vs renal, ?HD) Fluid: ml Per MD Nutritional Problem 3. Problem Problem Altered nutrition related laboratory values related to Etiology DM aeb Signs/Symptoms: A1c 9H, glucose 238H 2. Problem Problem Increased kcal and prot needs related to Etiology skin integrity, recent weight loss aeb Signs/Symptoms: Sacral decubitus ulcer stage IV, wt loss 4-5lb in 2 weeks per nursing adm notes, moderate to seevre muslce/fat wasting to chest and clavicles 1. Problem Problem Impaired nutrient utilization related to Etiology acute kidney injury aeb Signs/Symptoms: potassium 5.3H, BUN 169H, creatinie 5.8H, calcium 10.8H Intervention/Recommendation Comments 1. Discussed enteral nutrition with family. Family has no further questions at this time . 2. When medically feasible to initiate feeding, recommend Novasource Renal at 30ml/hr x 24hrs, providing 720ml total volume, 1440kcal, 65g protein. Initiate at 10ml/hr for first 24 hrs, monitor for refeeding syndrome and tolerance, increase by 5ml/hr q12hrs until goal. 3. Recommend 1 packet Arginaid daily via tube for wound healing. 4. Monitor weight closely. Hx 4-5lb wt loss in 2 weeks per nursing adm note. Expected Outcomes/Goals Expected Outcomes/Goals 1. Pt to meet at least 75% of estimated nutritinoal eneds on tube feeding with tolerance.
--- NOTE | 2016-12-05 08:36 | General Progress Note ---
Subjective - Review of Systems Service Date: 12/05/16 Subjective: Patient non verbal. Objective - Results Result Diagrams: 12/05/16 04:50 12/05/16 04:50 Recent Labs: Laboratory Last Values WBC 8.9 Th/cmm (4.8-10.8) 12/05/16 04:50 Corrected WBC (auto) 8.8 Th/cmm (4.8-10.8) 12/01/16 18:25 RBC 3.55 Mil/cmm (3.80-5.20) L 12/05/16 04:50 Hgb 10.2 gm/dL (12-16) L D 12/05/16 04:50 Hct 31.2 % (41.0-60) L D 12/05/16 04:50 MCV 88.1 fl (81-100) 12/05/16 04:50 MCH 28.7 pg (27.0-31.0) 12/05/16 04:50 MCHC Differential 32.6 pg (28.0-36.0) 12/05/16 04:50 RDW 18.6 % (11.5-20.0) 12/05/16 04:50 Plt Count 75 Th/cmm (150-400) L 12/05/16 04:50 MPV 11.5 fl 12/05/16 04:50 Neutrophils % 79.0 % (40.0-80.0) 12/05/16 04:50 Band Neutrophils % 8 % (0-10) 12/04/16 04:50 Lymphocytes % 14.5 % (20.0-50.0) L 12/05/16 04:50 Monocytes % 4.7 % (2.0-10.0) 12/05/16 04:50 Eosinophils % 1.7 % (0.0-5.0) 12/05/16 04:50 Basophils % 0.1 % (0.0-2.0) 12/05/16 04:50 Neutrophils (Manual) 77 % (40-80) 12/04/16 04:50 Lymphocytes 10 % (20-50) L 12/04/16 04:50 Monocytes 5 % (2-10) 12/04/16 04:50 Eosinophils 3 % (0-5) 12/03/16 05:35 Nucleated RBCs 5.0 % (0-0) H 12/01/16 18:25 Atypical Lymphocytes 1 % 12/01/16 18:25 Platelet Estimate SLIGHT DECREASED (NORMAL) 12/04/16 04:50 Platelet Morphology NORMAL (NORMAL) 12/01/16 18:25 Anisocytosis 2+ 12/03/16 05:35 RBC Morph Micro Appear ABNORMAL (NORMAL) 12/01/16 18:25 Eos Smear Source URINE 12/03/16 06:30 Eos Smear Total Cells NONE SEEN (NONE SEEN) 12/03/16 06:30 PT 11.2 SECONDS (9.5-11.5) 12/03/16 05:35 INR 1.08 (0.5-1.4) 12/03/16 05:35 PTT (Actin FS) 19.6 SECONDS (26.0-38.0) L 12/01/16 18:25 Sodium 146 mEq/L (136-145) H 12/05/16 04:50 Potassium 3.3 mEq/L (3.5-5.1) L 12/05/16 04:50 Chloride 122 mEq/L (98-107) H 12/05/16 04:50 Carbon Dioxide 15.0 mEq/L (21.0-31.0) L 12/05/16 04:50 Anion Gap 12.3 (7.0-16.0) 12/05/16 04:50 BUN 102 mg/dL (7-25) H* 12/05/16 04:50 Creatinine 3.8 mg/dL (0.6-1.2) H 12/05/16 04:50 Est GFR ( Amer) TNP 12/05/16 04:50 Est GFR (Non-Af Amer) TNP 12/05/16 04:50 BUN/Creatinine Ratio 26.8 12/05/16 04:50 Glucose 471 mg/dL (70-105) H* 12/05/16 04:50 POC Glucose 415 MG/DL (70 - 105) H 12/05/16 07:58 Hemoglobin A1c % 9.0 % (4.0-6.0) H 12/01/16 18:25 Whole Bld Lactic Acid 1.48 mmol/L (0.60-1.99) 12/01/16 20:58 Uric Acid 11.6 mg/dL (2.3-6.6) H 12/03/16 05:35 Calcium 9.6 mg/dL (8.6-10.3) 12/05/16 04:50 Magnesium 2.7 mg/dL (1.9-2.7) 12/03/16 05:35 Total Bilirubin 0.5 mg/dL (0.3-1.0) 12/05/16 04:50 AST 9 U/L (13-39) L 12/05/16 04:50 ALT 3 U/L (7-52) L 12/05/16 04:50 Alkaline Phosphatase 86 U/L (34-104) 12/05/16 04:50 Total Protein 5.4 gm/dL (6.0-8.3) L 12/05/16 04:50 Albumin 2.4 gm/dL (3.7-5.3) L 12/05/16 04:50 Globulin 3.0 gm/dL 12/05/16 04:50 Albumin/Globulin Ratio 0.8 (1.0-1.8) L 12/05/16 04:50 TSH 2.49 uIU/ml (0.34-5.60) 12/03/16 05:35 Urine Source SOTO PORT 12/02/16 14:56 Urine Color YELLOW 12/02/16 14:56 Urine Clarity HAZY (CLEAR) 12/02/16 14:56 Urine pH 8.0 (4.6 - 8.0) 12/02/16 14:56 Ur Specific [place] 1.015 (1.005-1.030) 12/02/16 14:56 Urine Protein 100 mg/dL (NEGATIVE) H 12/02/16 14:56 Urine Glucose (UA) 500 mg/dL (NEGATIVE) H 12/02/16 14:56 Urine Ketones NEGATIVE mg/dL (NEGATIVE) 12/02/16 14:56 Urine Blood MODERATE (NEGATIVE) H 12/02/16 14:56 Urine Nitrate POSITIVE (NEGATIVE) H 12/02/16 14:56 Urine Bilirubin NEGATIVE (NEGATIVE) 12/02/16 14:56 Urine Urobilinogen 0.2 E.U./dL (0.2 - 1.0) 12/02/16 14:56 Ur Leukocyte Esterase MODERATE (NEGATIVE) H 12/02/16 14:56 Urine RBC 5-10 /hpf (0-5) H 12/02/16 14:56 Urine WBC 50-100 /hpf (0-5) H 12/02/16 14:56 Ur Epithelial Cells FEW /lpf (FEW) 12/02/16 14:56 Triple Phos Crystals MODERATE /hpf (FEW) 12/02/16 14:56 Urine Bacteria MANY /hpf (NONE SEEN) 12/02/16 14:56 Ur Random Sodium 75 mmol/L 12/03/16 06:30 Urine Creatinine 49.0 mg/dl (28.0-217.0) 12/03/16 06:30 Blood Type O POSITIVE 12/02/16 05:05 Antibody Screen NEGATIVE 12/02/16 05:05 Crossmatch See Detail 12/02/16 05:05 - Physical Exam Vitals and I&O: Vital Signs Temp 98.5 F 12/05/16 04:00 Pulse 89 12/05/16 04:00 Resp 18 12/05/16 04:00 BP 144/71 12/05/16 04:00 Pulse Ox 96 12/05/16 04:00 Intake & Output 12/04/16 12/05/16 12/05/16 18:59 06:59 18:59 Intake Total 1000 3652.083 Output Total 1450 Balance 1000 2202.083 Weight (lbs) 53.07 kg Intake: Intake, IV Amount 1000 3002.083 Dextrose 5% 1,000 ml @ 1000 2002.083 125 mls/hr IV .Q8H [facility] Rx #:[id number] Tube Feeding 300 Blood Product 250 Other 100 Output: Urine 1450 Other: # Bowel Movements 2 Stool Characteristics Soft Soft Formed Formed Black Black Active Medications: Current Medications Acetaminophen (Tylenol) 650 mg PO Q6H PRN PRN Reason: Pain or Fever >101 Stop: 01/31/17 11:18 Bisacodyl (Dulcolax 5 Mg Ec Tab) 10 mg PO BID [facility] Stop: 01/31/17 16:59 Last Admin: 12/04/16 17:24 Dose: 10 mg Epoetin Esequiel (Epogen) 10,000 units SUBQ TuThSa [facility] Stop: 02/01/17 14:29 Last Admin: 12/03/16 16:01 Dose: 10,000 units Dextrose (D5w) 1,000 mls @ 125 mls/hr IV .Q8H [facility] Stop: 02/01/17 14:14 Last Admin: 12/05/16 06:18 Dose: 125 mls/hr Piperacillin Sod/Tazobactam (Sod 3.375 gm/ Dextrose) 50 mls @ 100 mls/hr IV Q8H [facility] Stop: 02/03/17 08:14 Metronidazole 500 mg/ (Miscellaneous) 100 mls @ 100 mls/hr IV Q8H [facility] Stop: 02/03/17 08:14 Insulin Aspart (Novolog Insulin Sliding Scale) 0 units SUBQ ACHS BRIELLE PRN Reason: Protocol Stop: 01/31/17 07:29 Last Admin: 12/05/16 06:30 Dose: Not Given Miscellaneous (Vte Chemical Prophylaxis Screen/ Admission) 1 ea MC PRN PRN PRN Reason: PROTOCOL Stop: 01/31/17 13:38 Pantoprazole Sodium (Protonix) 40 mg IVP DAILY [facility] Stop: 02/01/17 08:59 Last Admin: 12/04/16 09:15 Dose: 40 mg Sodium Bicarbonate (Sodium Bicarbonate) 650 mg PO BID BRIELLE PRN Reason: Protocol Stop: 01/31/17 16:59 Last Admin: 12/04/16 17:24 Dose: 650 mg General: No acute distress, Other (Sedated, post surgery.) HEENT: Atraumatic, Mucous membr. moist/pink Neck: Supple, +2 carotid pulse wo bruit Cardiovascular: Regular rate, Normal S1, Normal S2 Lungs: Clear to auscultation, Other Abdomen: Bowel sounds, Soft, Other (PEG in place.) Extremities: Other (No edema), no Edema Neurological: Sensation intact, Other (Non ambulatory) Skin: Other (Decubit sacral ulcer stage IV), no Significant lesion Psych/Mental Status: Mood NL, Other (Sedated, post surgery) - Procedures Procedures: Procedures Procedure Code Date CHAGO MUSC/FASCIA 20 SQ CM/< 31472 10/24/16 EXCISION OF LEFT HIP MUSCLE, OPEN APPROACH [id number] 10/24/16 Assessment/Plan - Problem List Patient Problems: All Active Problems POOR ORAL INTAKE AND SWALLOWING (Acute) SACRAL AND BILATERAL BUTTOCK SKIN ULCERS (Acute) - Assessment Assessment: Current Active Problems Problem Status Onset POOR ORAL INTAKE AND SWALLOWING Acute Patient is awake, non verbal, in no acute distress. Na, Creatinine improving. Today will have ulcer debridament. Dx: Hypernatremia, AKF, Chronic anemia, Sacral decubitus ulcer stage IV, HTN, DM, Dementia - Plan Plan: PEG in place, fedding started. Already seen by Nepro, GI, and surgery. NA, and Creatinine improving. Case discussed with family. Blood transfusion is done. Today Will have ulcer debridament. Will continue to monitor. Nutritional Asmnt/Malnutr-PDOC - Dietary Evaluation Malnutrition Findings (Please click <Entered> for more info): Nutritional Asmnt/Malnutrition Start: 12/02/16 14: 44 Text: Status: Complete Freq: Document 12/02/16 14:44 GSUN (Rec: 12/02/16 15:19 GSUN [email or web address]) Nutritional Asmnt/Malnutrition Patient General Information Nutritional Screening Consult Diagnosis AKF, sacral decubitus ulcer stage IV, HTN, DM, dementia, chronic anemia Pertinent Medical Hx/Surgical Hx CAD, CVA, dementia, psychosis, muscle atrophy, AKF, DM, decubitus ulcer stage IV Subjective Information 81 year old female from SNF. RD consult for low Elliot and elevated blood glucose. Pt was awake, unable to provide nutrition hx. Family at bedside, spoke to family and RN Loren regarding nutrition plan of care, PEG placement consent obtained. Family has no other questions at this time. 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 Per nursing adm notes , 4-5lb wt loss in 2 weeks. Per family, unaware of UBW, aware of recent wt loss, stated pt stopped eating ~3-4 days ago. Loose skin, moderate to severe muslce fat wasting to chest and clavicles. Current Diet Order/ Nutrition Support NPO Pertinent Medications Dulcolax, D5-0.45ns, Novolog Pertinent Labs 12/01: A1c 9H 12/02: sodium 173H, potassium 5.3H, BUN 169H, creatinie 5.8H , glucose 238H, calcium 10.8H Nutritional Hx/Data Height 1.52 m Height (Calculated Centimeters) 152.4 Current Weight (lbs) 43.545 kg Weight (Calculated Kilograms) 43.5 Weight (Calculated Grams) 15712.9 [place] Body Weight 100 Recent Weight Change Yes Weight Status Approriate GI Symptoms Usual diet at home [facility]: pureed, ALISE , [facility], [place] Skin Integrity/Comment: Elliot 11. Sacral decubitus ulcer stage IV. Estimated Nutritional Goals Calories/Kcals/Kg IBW 100lb/45.5kg Kcals Calculated 1365-1593kcal (30-35kcal/kg) Protein Calculated 68-73g (1.4-1.6g/kg, ulcer vs renal, ?HD) Fluid: ml Per MD Nutritional Problem 3. Problem Problem Altered nutrition related laboratory values related to Etiology DM aeb Signs/Symptoms: A1c 9H, glucose 238H 2. Problem Problem Increased kcal and prot needs related to Etiology skin integrity, recent weight loss aeb Signs/Symptoms: Sacral decubitus ulcer stage IV, wt loss 4-5lb in 2 weeks per nursing adm notes, moderate to seevre muslce/fat wasting to chest and clavicles 1. Problem Problem Impaired nutrient utilization related to Etiology acute kidney injury aeb Signs/Symptoms: potassium 5.3H, BUN 169H, creatinie 5.8H, calcium 10.8H Intervention/Recommendation Comments 1. Discussed enteral nutrition with family. Family has no further questions at this time . 2. When medically feasible to initiate feeding, recommend Novasource Renal at 30ml/hr x 24hrs, providing 720ml total volume, 1440kcal, 65g protein. Initiate at 10ml/hr for first 24 hrs, monitor for refeeding syndrome and tolerance, increase by 5ml/hr q12hrs until goal. 3. Recommend 1 packet Arginaid daily via tube for wound healing. 4. Monitor weight closely. Hx 4-5lb wt loss in 2 weeks per nursing adm note. Expected Outcomes/Goals Expected Outcomes/Goals 1. Pt to meet at least 75% of estimated nutritinoal eneds on tube feeding with tolerance.
--- NOTE | 2016-12-05 08:36 | General Progress Note ---
Subjective - Review of Systems Service Date: 12/05/16 Subjective: Patient non verbal. Objective - Results Result Diagrams: 12/05/16 04:50 12/05/16 04:50 Recent Labs: Laboratory Last Values WBC 8.9 Th/cmm (4.8-10.8) 12/05/16 04:50 Corrected WBC (auto) 8.8 Th/cmm (4.8-10.8) 12/01/16 18:25 RBC 3.55 Mil/cmm (3.80-5.20) L 12/05/16 04:50 Hgb 10.2 gm/dL (12-16) L D 12/05/16 04:50 Hct 31.2 % (41.0-60) L D 12/05/16 04:50 MCV 88.1 fl (81-100) 12/05/16 04:50 MCH 28.7 pg (27.0-31.0) 12/05/16 04:50 MCHC Differential 32.6 pg (28.0-36.0) 12/05/16 04:50 RDW 18.6 % (11.5-20.0) 12/05/16 04:50 Plt Count 75 Th/cmm (150-400) L 12/05/16 04:50 MPV 11.5 fl 12/05/16 04:50 Neutrophils % 79.0 % (40.0-80.0) 12/05/16 04:50 Band Neutrophils % 8 % (0-10) 12/04/16 04:50 Lymphocytes % 14.5 % (20.0-50.0) L 12/05/16 04:50 Monocytes % 4.7 % (2.0-10.0) 12/05/16 04:50 Eosinophils % 1.7 % (0.0-5.0) 12/05/16 04:50 Basophils % 0.1 % (0.0-2.0) 12/05/16 04:50 Neutrophils (Manual) 77 % (40-80) 12/04/16 04:50 Lymphocytes 10 % (20-50) L 12/04/16 04:50 Monocytes 5 % (2-10) 12/04/16 04:50 Eosinophils 3 % (0-5) 12/03/16 05:35 Nucleated RBCs 5.0 % (0-0) H 12/01/16 18:25 Atypical Lymphocytes 1 % 12/01/16 18:25 Platelet Estimate SLIGHT DECREASED (NORMAL) 12/04/16 04:50 Platelet Morphology NORMAL (NORMAL) 12/01/16 18:25 Anisocytosis 2+ 12/03/16 05:35 RBC Morph Micro Appear ABNORMAL (NORMAL) 12/01/16 18:25 Eos Smear Source URINE 12/03/16 06:30 Eos Smear Total Cells NONE SEEN (NONE SEEN) 12/03/16 06:30 PT 11.2 SECONDS (9.5-11.5) 12/03/16 05:35 INR 1.08 (0.5-1.4) 12/03/16 05:35 PTT (Actin FS) 19.6 SECONDS (26.0-38.0) L 12/01/16 18:25 Sodium 146 mEq/L (136-145) H 12/05/16 04:50 Potassium 3.3 mEq/L (3.5-5.1) L 12/05/16 04:50 Chloride 122 mEq/L (98-107) H 12/05/16 04:50 Carbon Dioxide 15.0 mEq/L (21.0-31.0) L 12/05/16 04:50 Anion Gap 12.3 (7.0-16.0) 12/05/16 04:50 BUN 102 mg/dL (7-25) H* 12/05/16 04:50 Creatinine 3.8 mg/dL (0.6-1.2) H 12/05/16 04:50 Est GFR ( Amer) TNP 12/05/16 04:50 Est GFR (Non-Af Amer) TNP 12/05/16 04:50 BUN/Creatinine Ratio 26.8 12/05/16 04:50 Glucose 471 mg/dL (70-105) H* 12/05/16 04:50 POC Glucose 415 MG/DL (70 - 105) H 12/05/16 07:58 Hemoglobin A1c % 9.0 % (4.0-6.0) H 12/01/16 18:25 Whole Bld Lactic Acid 1.48 mmol/L (0.60-1.99) 12/01/16 20:58 Uric Acid 11.6 mg/dL (2.3-6.6) H 12/03/16 05:35 Calcium 9.6 mg/dL (8.6-10.3) 12/05/16 04:50 Magnesium 2.7 mg/dL (1.9-2.7) 12/03/16 05:35 Total Bilirubin 0.5 mg/dL (0.3-1.0) 12/05/16 04:50 AST 9 U/L (13-39) L 12/05/16 04:50 ALT 3 U/L (7-52) L 12/05/16 04:50 Alkaline Phosphatase 86 U/L (34-104) 12/05/16 04:50 Total Protein 5.4 gm/dL (6.0-8.3) L 12/05/16 04:50 Albumin 2.4 gm/dL (3.7-5.3) L 12/05/16 04:50 Globulin 3.0 gm/dL 12/05/16 04:50 Albumin/Globulin Ratio 0.8 (1.0-1.8) L 12/05/16 04:50 TSH 2.49 uIU/ml (0.34-5.60) 12/03/16 05:35 Urine Source SOTO PORT 12/02/16 14:56 Urine Color YELLOW 12/02/16 14:56 Urine Clarity HAZY (CLEAR) 12/02/16 14:56 Urine pH 8.0 (4.6 - 8.0) 12/02/16 14:56 Ur Specific [place] 1.015 (1.005-1.030) 12/02/16 14:56 Urine Protein 100 mg/dL (NEGATIVE) H 12/02/16 14:56 Urine Glucose (UA) 500 mg/dL (NEGATIVE) H 12/02/16 14:56 Urine Ketones NEGATIVE mg/dL (NEGATIVE) 12/02/16 14:56 Urine Blood MODERATE (NEGATIVE) H 12/02/16 14:56 Urine Nitrate POSITIVE (NEGATIVE) H 12/02/16 14:56 Urine Bilirubin NEGATIVE (NEGATIVE) 12/02/16 14:56 Urine Urobilinogen 0.2 E.U./dL (0.2 - 1.0) 12/02/16 14:56 Ur Leukocyte Esterase MODERATE (NEGATIVE) H 12/02/16 14:56 Urine RBC 5-10 /hpf (0-5) H 12/02/16 14:56 Urine WBC 50-100 /hpf (0-5) H 12/02/16 14:56 Ur Epithelial Cells FEW /lpf (FEW) 12/02/16 14:56 Triple Phos Crystals MODERATE /hpf (FEW) 12/02/16 14:56 Urine Bacteria MANY /hpf (NONE SEEN) 12/02/16 14:56 Ur Random Sodium 75 mmol/L 12/03/16 06:30 Urine Creatinine 49.0 mg/dl (28.0-217.0) 12/03/16 06:30 Blood Type O POSITIVE 12/02/16 05:05 Antibody Screen NEGATIVE 12/02/16 05:05 Crossmatch See Detail 12/02/16 05:05 - Physical Exam Vitals and I&O: Vital Signs Temp 98.5 F 12/05/16 04:00 Pulse 89 12/05/16 04:00 Resp 18 12/05/16 04:00 BP 144/71 12/05/16 04:00 Pulse Ox 96 12/05/16 04:00 Intake & Output 12/04/16 12/05/16 12/05/16 18:59 06:59 18:59 Intake Total 1000 3652.083 Output Total 1450 Balance 1000 2202.083 Weight (lbs) 53.07 kg Intake: Intake, IV Amount 1000 3002.083 Dextrose 5% 1,000 ml @ 1000 2002.083 125 mls/hr IV .Q8H [facility] Rx #:[id number] Tube Feeding 300 Blood Product 250 Other 100 Output: Urine 1450 Other: # Bowel Movements 2 Stool Characteristics Soft Soft Formed Formed Black Black Active Medications: Current Medications Acetaminophen (Tylenol) 650 mg PO Q6H PRN PRN Reason: Pain or Fever >101 Stop: 01/31/17 11:18 Bisacodyl (Dulcolax 5 Mg Ec Tab) 10 mg PO BID [facility] Stop: 01/31/17 16:59 Last Admin: 12/04/16 17:24 Dose: 10 mg Epoetin Esequiel (Epogen) 10,000 units SUBQ TuThSa [facility] Stop: 02/01/17 14:29 Last Admin: 12/03/16 16:01 Dose: 10,000 units Dextrose (D5w) 1,000 mls @ 125 mls/hr IV .Q8H [facility] Stop: 02/01/17 14:14 Last Admin: 12/05/16 06:18 Dose: 125 mls/hr Piperacillin Sod/Tazobactam (Sod 3.375 gm/ Dextrose) 50 mls @ 100 mls/hr IV Q8H [facility] Stop: 02/03/17 08:14 Metronidazole 500 mg/ (Miscellaneous) 100 mls @ 100 mls/hr IV Q8H [facility] Stop: 02/03/17 08:14 Insulin Aspart (Novolog Insulin Sliding Scale) 0 units SUBQ ACHS [facility] PRN Reason: Protocol Stop: 01/31/17 07:29 Last Admin: 12/05/16 06:30 Dose: Not Given Miscellaneous (Vte Chemical Prophylaxis Screen/ Admission) 1 ea MC PRN PRN PRN Reason: PROTOCOL Stop: 01/31/17 13:38 Pantoprazole Sodium (Protonix) 40 mg IVP DAILY [facility] Stop: 02/01/17 08:59 Last Admin: 12/04/16 09:15 Dose: 40 mg Sodium Bicarbonate (Sodium Bicarbonate) 650 mg PO BID [facility] PRN Reason: Protocol Stop: 01/31/17 16:59 Last Admin: 12/04/16 17:24 Dose: 650 mg General: No acute distress, Other (Sedated, post surgery.) HEENT: Atraumatic, Mucous membr. moist/pink Neck: Supple, +2 carotid pulse wo bruit Cardiovascular: Regular rate, Normal S1, Normal S2 Lungs: Clear to auscultation, Other Abdomen: Bowel sounds, Soft, Other (PEG in place.) Extremities: Other (No edema), no Edema Neurological: Sensation intact, Other (Non ambulatory) Skin: Other (Decubit sacral ulcer stage IV), no Significant lesion Psych/Mental Status: Mood NL, Other (Sedated, post surgery) - Procedures Procedures: Procedures Procedure Code Date CHAGO MUSC/FASCIA 20 SQ CM/< 16928 10/24/16 EXCISION OF LEFT HIP MUSCLE, OPEN APPROACH [id number] 10/24/16 Assessment/Plan - Problem List Patient Problems: All Active Problems POOR ORAL INTAKE AND SWALLOWING (Acute) SACRAL AND BILATERAL BUTTOCK SKIN ULCERS (Acute) - Assessment Assessment: Current Active Problems Problem Status Onset POOR ORAL INTAKE AND SWALLOWING Acute Patient is awake, non verbal, in no acute distress. Na, Creatinine improving. Today will have ulcer debridament. Dx: Hypernatremia, AKF, Chronic anemia, Sacral decubitus ulcer stage IV, HTN, DM, Dementia - Plan Plan: PEG in place, fedding started. Already seen by Nepro, GI, and surgery. NA, and Creatinine improving. Case discussed with family. Blood transfusion is done. Today Will have ulcer debridament. Will continue to monitor. Nutritional Asmnt/Malnutr-PDOC - Dietary Evaluation Malnutrition Findings (Please click <Entered> for more info): Nutritional Asmnt/Malnutrition Start: 12/02/16 14: 44 Text: Status: Complete Freq: Document 12/02/16 14:44 GSUN (Rec: 12/02/16 15:19 GSUN [id number]) Nutritional Asmnt/Malnutrition Patient General Information Nutritional Screening Consult Diagnosis AKF, sacral decubitus ulcer stage IV, HTN, DM, dementia, chronic anemia Pertinent Medical Hx/Surgical Hx CAD, CVA, dementia, psychosis, muscle atrophy, AKF, DM, decubitus ulcer stage IV Subjective Information 81 year old female from SNF. RD consult for low Elliot and elevated blood glucose. Pt was awake, unable to provide nutrition hx. Family at bedside, spoke to family and RN Loren regarding nutrition plan of care, PEG placement consent obtained. Family has no other questions at this time. 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 Per nursing adm notes , 4-5lb wt loss in 2 weeks. Per family, unaware of UBW, aware of recent wt loss, stated pt stopped eating ~3-4 days ago. Loose skin, moderate to severe muslce fat wasting to chest and clavicles. Current Diet Order/ Nutrition Support NPO Pertinent Medications Dulcolax, D5-0.45ns, Novolog Pertinent Labs 12/01: A1c 9H 12/02: sodium 173H, potassium 5.3H, BUN 169H, creatinie 5.8H , glucose 238H, calcium 10.8H Nutritional Hx/Data Height 1.52 m Height (Calculated Centimeters) 152.4 Current Weight (lbs) 43.545 kg Weight (Calculated Kilograms) 43.5 Weight (Calculated Grams) 93293.9 [place] Body Weight 100 Recent Weight Change Yes Weight Status Approriate GI Symptoms Usual diet at home [facility]: pureed, ALISE , [facility] Skin Integrity/Comment: Elliot 11. Sacral decubitus ulcer stage IV. Estimated Nutritional Goals Calories/Kcals/Kg IBW 100lb/45.5kg Kcals Calculated 1365-1593kcal (30-35kcal/kg) Protein Calculated 68-73g (1.4-1.6g/kg, ulcer vs renal, ?HD) Fluid: ml Per MD Nutritional Problem 3. Problem Problem Altered nutrition related laboratory values related to Etiology DM aeb Signs/Symptoms: A1c 9H, glucose 238H 2. Problem Problem Increased kcal and prot needs related to Etiology skin integrity, recent weight loss aeb Signs/Symptoms: Sacral decubitus ulcer stage IV, wt loss 4-5lb in 2 weeks per nursing adm notes, moderate to seevre muslce/fat wasting to chest and clavicles 1. Problem Problem Impaired nutrient utilization related to Etiology acute kidney injury aeb Signs/Symptoms: potassium 5.3H, BUN 169H, creatinie 5.8H, calcium 10.8H Intervention/Recommendation Comments 1. Discussed enteral nutrition with family. Family has no further questions at this time . 2. When medically feasible to initiate feeding, recommend Novasource Renal at 30ml/hr x 24hrs, providing 720ml total volume, 1440kcal, 65g protein. Initiate at 10ml/hr for first 24 hrs, monitor for refeeding syndrome and tolerance, increase by 5ml/hr q12hrs until goal. 3. Recommend 1 packet Arginaid daily via tube for wound healing. 4. Monitor weight closely. Hx 4-5lb wt loss in 2 weeks per nursing adm note. Expected Outcomes/Goals Expected Outcomes/Goals 1. Pt to meet at least 75% of estimated nutritinoal eneds on tube feeding with tolerance.
[2016-12-05] MEDS ORDERED: Meperidine 25 mg/mL 1mL Syr IVP PRN (09:45)
[2016-12-05] MEDS ORDERED: Lactated Ringer 1,000 ML IV SCH (09:45)
[2016-12-05] MEDS ORDERED: INSULIN HUMAN REGULAR 100 UNITS/ML UNIT IVP ONE (09:48)
[2016-12-05] MEDS: Venelex 60gm Tube TP SCH (10:10)
[2016-12-05] MEDS: Multivitamin w/ Minerals Tab PO SCH (10:10)
[2016-12-05 10:34] LABS: ALB/GLOB RATIO 0.9 (1.0-1.8); ALBUMIN 2.4 gm/dL (3.7-5.3); ALKALINE PHOSPHATASE 83 U/L (34-104); ANION GAP 12.4 (7.0-16.0); BILIRUBIN,TOTAL 0.5 mg/dL (0.3-1.0); CALCIUM SERUM 9.2 mg/dL (8.6-10.3); CARBON DIOXIDE 12.2 mEq/L (21.0-31.0); CHLORIDE 123 mEq/L (98-107); CREATININE - SERUM 3.5 mg/dL (0.6-1.2); GLUCOSE 363 mg/dL (70-105); SGOT 8 U/L (13-39); SGPT/ALT 3 U/L (7-52); SODIUM SERUM 145 mEq/L (136-145); TOTAL PROTEIN,SERUM 5.2 gm/dL (6.0-8.3)
[2016-12-05 10:44] LABS: BUN - UREA NITROGEN 97 mg/dL (7-25); POTASSIUM SERUM 2.6 mEq/L (3.5-5.1)
[2016-12-05] MEDS ORDERED: Sodium Chloride 0.9% 1,000 ML IV ONE (10:56)
[2016-12-05] MEDS: metroNIDAZOLE 500mg/NS 100mL 500 MG in Premix Fluid 1 BAG IV SCH ×2 (11:20→17:36)
--- NOTE | 2016-12-05 11:21 | Diagnostic Imaging Report ---
CHEST X-RAY: AP view INDICATION: Endotracheal tube and NG tube placement COMPARISON: Chest x-ray 12/02/2016 FINDINGS: Endotracheal is seen with tip 1 cm above the priscila. NG tube is seen with tip in the stomach. Additional tubing material is seen along the upper abdomen. Hazy right lung perihilar infiltrates are noted. No effusions. Heart size is normal. IMPRESSION: ET tube with tip 1 cm above the Priscila. NG tube within the stomach. Right perihilar infiltrates.
[2016-12-05] MEDS: KCL 20mEq/100mL Premix 20 MEQ/100 ML PIGGYBACK IV SCH ×2 (12:28→14:14)
--- NOTE | 2016-12-05 12:43 | General Progress Note ---
Subjective - Review of Systems Service Date: 12/05/16 Subjective: sedated, comfortable, on vent Objective - Results Result Diagrams: 12/05/16 04:50 12/05/16 10:05 Recent Labs: Laboratory Last Values WBC 8.9 Th/cmm (4.8-10.8) 12/05/16 04:50 Corrected WBC (auto) 8.8 Th/cmm (4.8-10.8) 12/01/16 18:25 RBC 3.55 Mil/cmm (3.80-5.20) L 12/05/16 04:50 Hgb 10.2 gm/dL (12-16) L D 12/05/16 04:50 Hct 31.2 % (41.0-60) L D 12/05/16 04:50 MCV 88.1 fl (81-100) 12/05/16 04:50 MCH 28.7 pg (27.0-31.0) 12/05/16 04:50 MCHC Differential 32.6 pg (28.0-36.0) 12/05/16 04:50 RDW 18.6 % (11.5-20.0) 12/05/16 04:50 Plt Count 75 Th/cmm (150-400) L 12/05/16 04:50 MPV 11.5 fl 12/05/16 04:50 Neutrophils % 79.0 % (40.0-80.0) 12/05/16 04:50 Band Neutrophils % 8 % (0-10) 12/04/16 04:50 Lymphocytes % 14.5 % (20.0-50.0) L 12/05/16 04:50 Monocytes % 4.7 % (2.0-10.0) 12/05/16 04:50 Eosinophils % 1.7 % (0.0-5.0) 12/05/16 04:50 Basophils % 0.1 % (0.0-2.0) 12/05/16 04:50 Neutrophils (Manual) 77 % (40-80) 12/04/16 04:50 Lymphocytes 10 % (20-50) L 12/04/16 04:50 Monocytes 5 % (2-10) 12/04/16 04:50 Eosinophils 3 % (0-5) 12/03/16 05:35 Nucleated RBCs 5.0 % (0-0) H 12/01/16 18:25 Atypical Lymphocytes 1 % 12/01/16 18:25 Platelet Estimate SLIGHT DECREASED (NORMAL) 12/04/16 04:50 Platelet Morphology NORMAL (NORMAL) 12/01/16 18:25 Anisocytosis 2+ 12/03/16 05:35 RBC Morph Micro Appear ABNORMAL (NORMAL) 12/01/16 18:25 Eos Smear Source URINE 12/03/16 06:30 Eos Smear Total Cells NONE SEEN (NONE SEEN) 12/03/16 06:30 PT 11.2 SECONDS (9.5-11.5) 12/03/16 05:35 INR 1.08 (0.5-1.4) 12/03/16 05:35 PTT (Actin FS) 19.6 SECONDS (26.0-38.0) L 12/01/16 18:25 Sodium 145 mEq/L (136-145) 12/05/16 10:05 Potassium 2.6 mEq/L (3.5-5.1) L* 12/05/16 10:05 Chloride 123 mEq/L (98-107) H 12/05/16 10:05 Carbon Dioxide 12.2 mEq/L (21.0-31.0) L 12/05/16 10:05 Anion Gap 12.4 (7.0-16.0) 12/05/16 10:05 BUN 97 mg/dL (7-25) H* 12/05/16 10:05 Creatinine 3.5 mg/dL (0.6-1.2) H 12/05/16 10:05 Est GFR ( Amer) TNP 12/05/16 10:05 Est GFR (Non-Af Amer) TNP 12/05/16 10:05 BUN/Creatinine Ratio 27.7 12/05/16 10:05 Glucose 363 mg/dL (70-105) H 12/05/16 10:05 POC Glucose 261 MG/DL (70 - 105) H 12/05/16 12:12 Hemoglobin A1c % 9.0 % (4.0-6.0) H 12/01/16 18:25 Whole Bld Lactic Acid 3.24 mmol/L (0.60-1.99) H* 12/05/16 10:05 Uric Acid 11.6 mg/dL (2.3-6.6) H 12/03/16 05:35 Calcium 9.2 mg/dL (8.6-10.3) 12/05/16 10:05 Magnesium 2.7 mg/dL (1.9-2.7) 12/03/16 05:35 Total Bilirubin 0.5 mg/dL (0.3-1.0) 12/05/16 10:05 AST 8 U/L (13-39) L 12/05/16 10:05 ALT 3 U/L (7-52) L 12/05/16 10:05 Alkaline Phosphatase 83 U/L (34-104) 12/05/16 10:05 Total Protein 5.2 gm/dL (6.0-8.3) L 12/05/16 10:05 Albumin 2.4 gm/dL (3.7-5.3) L 12/05/16 10:05 Globulin 2.8 gm/dL 12/05/16 10:05 Albumin/Globulin Ratio 0.9 (1.0-1.8) L 12/05/16 10:05 TSH 2.49 uIU/ml (0.34-5.60) 12/03/16 05:35 Urine Source SOTO [place] 12/02/16 14:56 Urine Color YELLOW 12/02/16 14:56 Urine Clarity HAZY (CLEAR) 12/02/16 14:56 Urine pH 8.0 (4.6 - 8.0) 12/02/16 14:56 Ur Specific [place] 1.015 (1.005-1.030) 12/02/16 14:56 Urine Protein 100 mg/dL (NEGATIVE) H 12/02/16 14:56 Urine Glucose (UA) 500 mg/dL (NEGATIVE) H 12/02/16 14:56 Urine Ketones NEGATIVE mg/dL (NEGATIVE) 12/02/16 14:56 Urine Blood MODERATE (NEGATIVE) H 12/02/16 14:56 Urine Nitrate POSITIVE (NEGATIVE) H 12/02/16 14:56 Urine Bilirubin NEGATIVE (NEGATIVE) 12/02/16 14:56 Urine Urobilinogen 0.2 E.U./dL (0.2 - 1.0) 12/02/16 14:56 Ur Leukocyte Esterase MODERATE (NEGATIVE) H 12/02/16 14:56 Urine RBC 5-10 /hpf (0-5) H 12/02/16 14:56 Urine WBC 50-100 /hpf (0-5) H 12/02/16 14:56 Ur Epithelial Cells FEW /lpf (FEW) 12/02/16 14:56 Triple Phos Crystals MODERATE /hpf (FEW) 12/02/16 14:56 Urine Bacteria MANY /hpf (NONE SEEN) 12/02/16 14:56 Ur Random Sodium 75 mmol/L 12/03/16 06:30 Urine Creatinine 49.0 mg/dl (28.0-217.0) 12/03/16 06:30 Blood Type O POSITIVE 12/02/16 05:05 Antibody Screen NEGATIVE 12/02/16 05:05 Crossmatch See Detail 12/02/16 05:05 - Physical Exam Vitals and I&O: Vital Signs Temp 98.5 F 12/05/16 04:00 Pulse 86 12/05/16 12:12 Resp 13 12/05/16 09:55 BP 99/44 12/05/16 09:55 Pulse Ox 100 12/05/16 12:12 Intake & Output 12/04/16 12/05/16 12/05/16 18:59 06:59 18:59 Intake Total 1000 3652.083 Output Total 1450 Balance 1000 2202.083 Weight (lbs) 53.07 kg Intake: Intake, IV Amount 1000 3002.083 Dextrose 5% 1,000 ml @ 1000 2002.083 125 mls/hr IV .Q8H [facility] Rx #:[id number] Tube Feeding 300 Blood Product 250 Other 100 Output: Urine 1450 Other: # Bowel Movements 2 Stool Characteristics Soft Soft Formed Formed Black Black Active Medications: Current Medications Acetaminophen (Tylenol) 650 mg PO Q6H PRN PRN Reason: Pain or Fever >101 Stop: 01/31/17 11:18 Bisacodyl (Dulcolax 5 Mg Ec Tab) 10 mg PO BID [facility] Stop: 01/31/17 16:59 Last Admin: 12/05/16 10:10 Dose: Not Given Chlorhexidine Gluconate (Peridex) 15 ml MM 0800,2000 [facility] Stop: 02/03/17 19:59 Epoetin Esequiel (Epogen) 10,000 units SUBQ TuThSa [facility] Stop: 02/01/17 14:29 Last Admin: 12/03/16 16:01 Dose: 10,000 units Dextrose (D5w) 1,000 mls @ 125 mls/hr IV .Q8H [facility] Stop: 02/01/17 14:14 Last Admin: 12/05/16 06:18 Dose: 125 mls/hr Piperacillin Sod/Tazobactam (Sod 2.25 gm/ Dextrose) 50 mls @ 100 mls/hr IV Q8H [facility] Stop: 02/03/17 10:59 Last Admin: 12/05/16 12:35 Dose: 100 mls/hr Metronidazole 500 mg/ (Miscellaneous) 100 mls @ 100 mls/hr IV Q8H [facility] Stop: 02/03/17 09:59 Last Admin: 12/05/16 11:20 Dose: 100 mls/hr Lactated Ringer's (Lactated Ringer) 1,000 mls @ 0 mls/hr IV .Q0M [facility] PRN Reason: TKO Stop: 12/06/16 15:00 Potassium Chloride (Potassium Chloride) 20 meq in 100 mls @ 50 mls/hr IV Q2H [facility] Stop: 12/05/16 15:59 Last Admin: 12/05/16 12:28 Dose: 50 mls/hr Sodium Chloride (Nacl 0.9%) 1,000 mls @ 100 mls/hr IV .Q10H [facility] Stop: 12/05/16 20:55 Last Admin: 12/05/16 11:00 Dose: 100 mls/hr Insulin Aspart (Novolog Insulin Sliding Scale) 0 units SUBQ ACHS [facility] PRN Reason: Protocol Stop: 01/31/17 07:29 Last Admin: 12/05/16 12:19 Dose: 7 units Meperidine HCl (Demerol) 12.5 mg IVP UD PRN PRN Reason: POST-OP PAIN Stop: 12/05/16 15:00 Miscellaneous (Vte Chemical Prophylaxis Screen/ Admission) 1 ea MC PRN PRN PRN Reason: PROTOCOL Stop: 01/31/17 13:38 Ondansetron HCl (Zofran) 4 mg IV UD PRN PRN Reason: Nausea / Vomiting Stop: 12/06/16 09:44 Pantoprazole Sodium (Protonix) 40 mg IVP DAILY [facility] Stop: 02/01/17 08:59 Last Admin: 12/05/16 10:10 Dose: Not Given Potassium Chloride (Potassium Chloride Elixir) 20 meq GT DAILY [facility] Stop: 12/06/16 12:01 Sodium Bicarbonate (Sodium Bicarbonate) 650 mg PO BID [facility] PRN Reason: Protocol Stop: 01/31/17 16:59 Last Admin: 12/05/16 10:10 Dose: Not Given General: No acute distress, Other (Sedated, post surgery.) HEENT: Atraumatic, Mucous membr. moist/pink Neck: Supple, +2 carotid pulse wo bruit Cardiovascular: Regular rate, Normal S1, Normal S2 Lungs: Clear to auscultation, Other Abdomen: Bowel sounds, Soft, Other (PEG in place.) Extremities: Other (No edema), no Edema Neurological: Sensation intact, Other (Non ambulatory) Skin: Other (Decubit sacral ulcer stage IV), no Significant lesion Psych/Mental Status: Mood NL, Other (Sedated, post surgery) - Procedures Procedures: Procedures Procedure Code Date CHAGO MUSC/FASCIA 20 SQ CM/< 65481 10/24/16 EXCISION OF LEFT HIP MUSCLE, OPEN APPROACH [id number] 10/24/16 Assessment/Plan - Problem List Patient Problems: All Active Problems POOR ORAL INTAKE AND SWALLOWING (Acute) SACRAL AND BILATERAL BUTTOCK SKIN ULCERS (Acute) - Assessment Assessment: Bryan on CKD dehydration FTT 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 Anemia CKD Left hip ulcer s/p debridement w/ Vac B/L heel ulcers s/p debridement s/p Diverting colostomy - Plan Plan: Lab - Result Diagrams 12/03/16 05:35 12/03/16 05:35 Current Medications Acetaminophen (Tylenol) 650 mg PO Q6H PRN PRN Reason: Pain or Fever >101 Stop: 01/31/17 11:18 Bisacodyl (Dulcolax 5 Mg Ec Tab) 10 mg PO BID [facility] Stop: 01/31/17 16:59 Last Admin: 12/03/16 11:07 Dose: 10 mg Dextrose (D5w) 1,000 mls @ 125 mls/hr IV .Q8H [facility] Stop: 02/01/17 14:14 Insulin Aspart (Novolog Insulin Sliding Scale) 0 units SUBQ ACHS [facility] PRN Reason: Protocol Stop: 01/31/17 07:29 Last Admin: 12/03/16 12:32 Dose: 9 units Miscellaneous (Vte Chemical Prophylaxis Screen/ Admission) 1 ea PRN PRN PRN Reason: PROTOCOL Stop: 01/31/17 13:38 Pantoprazole Sodium (Protonix) 40 mg IVP DAILY [facility] Stop: 02/01/17 08:59 Last Admin: 12/03/16 11:07 Dose: 40 mg Sodium Bicarbonate (Sodium Bicarbonate) 650 mg PO BID [facility] PRN Reason: Protocol Stop: 01/31/17 16:59 Last Admin: 12/03/16 11:07 Dose: 650 mg Lab - Result Diagrams 12/05/16 04:50 12/05/16 10:05 kidney fnc gradually improving switched to NS due to elevated BS Had placement of PEG start feeding tonite start epo Hgb down to 7.9 up to 10.2 after transfusion continue IVF, start basal insulin Nutritional Asmnt/Malnutr-PDOC - Dietary Evaluation Malnutrition Findings (Please click <Entered> for more info): Nutritional Asmnt/Malnutrition Start: 12/02/16 14: 44 Text: Status: Complete Freq: Document 12/02/16 14:44 GSUN (Rec: 12/02/16 15:19 GSUN [id number]) Nutritional Asmnt/Malnutrition Patient General Information Nutritional Screening Consult Diagnosis AKF, sacral decubitus ulcer stage IV, HTN, DM, dementia, chronic anemia Pertinent Medical Hx/Surgical Hx CAD, CVA, dementia, psychosis, muscle atrophy, AKF, DM, decubitus ulcer stage IV Subjective Information 81 year old female from SNF. RD consult for low Elliot and elevated blood glucose. Pt was awake, unable to provide nutrition hx. Family at bedside, spoke to family and RN Loren regarding nutrition plan of care, PEG placement consent obtained. Family has no other questions at this time. 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 Per nursing adm notes , 4-5lb wt loss in 2 weeks. Per family, unaware of UBW, aware of recent wt loss, stated pt stopped eating ~3-4 days ago. Loose skin, moderate to severe muslce fat wasting to chest and clavicles. Current Diet Order/ Nutrition Support NPO Pertinent Medications Dulcolax, D5-0.45ns, Novolog Pertinent Labs 12/01: A1c 9H 12/02: sodium 173H, potassium 5.3H, BUN 169H, creatinie 5.8H , glucose 238H, calcium 10.8H Nutritional Hx/Data Height 1.52 m Height (Calculated Centimeters) 152.4 Current Weight (lbs) 43.545 kg Weight (Calculated Kilograms) 43.5 Weight (Calculated Grams) 57180.9 Transfer Body Weight 100 Recent Weight Change Yes Weight Status Approriate GI Symptoms Usual diet at home [facility]: pureed, [facility] Skin Integrity/Comment: Elliot 11. Sacral decubitus ulcer stage IV. Estimated Nutritional Goals Calories/Kcals/Kg IBW 100lb/45.5kg Kcals Calculated 1365-1593kcal (30-35kcal/kg) Protein Calculated 68-73g (1.4-1.6g/kg, ulcer vs renal, ?HD) Fluid: ml Per MD Nutritional Problem 3. Problem Problem Altered nutrition related laboratory values related to Etiology DM aeb Signs/Symptoms: A1c 9H, glucose 238H 2. Problem Problem Increased kcal and prot needs related to Etiology skin integrity, recent weight loss aeb Signs/Symptoms: Sacral decubitus ulcer stage IV, wt loss 4-5lb in 2 weeks per nursing adm notes, moderate to seevre muslce/fat wasting to chest and clavicles 1. Problem Problem Impaired nutrient utilization related to Etiology acute kidney injury aeb Signs/Symptoms: potassium 5.3H, BUN 169H, creatinie 5.8H, calcium 10.8H Intervention/Recommendation Comments 1. Discussed enteral nutrition with family. Family has no further questions at this time . 2. When medically feasible to initiate feeding, recommend Novasource Renal at 30ml/hr x 24hrs, providing 720ml total volume, 1440kcal, 65g protein. Initiate at 10ml/hr for first 24 hrs, monitor for refeeding syndrome and tolerance, increase by 5ml/hr q12hrs until goal. 3. Recommend 1 packet Arginaid daily via tube for wound healing. 4. Monitor weight closely. Hx 4-5lb wt loss in 2 weeks per nursing adm note. Expected Outcomes/Goals Expected Outcomes/Goals 1. Pt to meet at least 75% of estimated nutritinoal eneds on tube feeding with tolerance.
--- NOTE | 2016-12-05 12:43 | General Progress Note ---
Subjective - Review of Systems Service Date: 12/05/16 Subjective: sedated, comfortable, on vent Objective - Results Result Diagrams: 12/05/16 04:50 12/05/16 10:05 Recent Labs: Laboratory Last Values WBC 8.9 Th/cmm (4.8-10.8) 12/05/16 04:50 Corrected WBC (auto) 8.8 Th/cmm (4.8-10.8) 12/01/16 18:25 RBC 3.55 Mil/cmm (3.80-5.20) L 12/05/16 04:50 Hgb 10.2 gm/dL (12-16) L D 12/05/16 04:50 Hct 31.2 % (41.0-60) L D 12/05/16 04:50 MCV 88.1 fl (81-100) 12/05/16 04:50 MCH 28.7 pg (27.0-31.0) 12/05/16 04:50 MCHC Differential 32.6 pg (28.0-36.0) 12/05/16 04:50 RDW 18.6 % (11.5-20.0) 12/05/16 04:50 Plt Count 75 Th/cmm (150-400) L 12/05/16 04:50 MPV 11.5 fl 12/05/16 04:50 Neutrophils % 79.0 % (40.0-80.0) 12/05/16 04:50 Band Neutrophils % 8 % (0-10) 12/04/16 04:50 Lymphocytes % 14.5 % (20.0-50.0) L 12/05/16 04:50 Monocytes % 4.7 % (2.0-10.0) 12/05/16 04:50 Eosinophils % 1.7 % (0.0-5.0) 12/05/16 04:50 Basophils % 0.1 % (0.0-2.0) 12/05/16 04:50 Neutrophils (Manual) 77 % (40-80) 12/04/16 04:50 Lymphocytes 10 % (20-50) L 12/04/16 04:50 Monocytes 5 % (2-10) 12/04/16 04:50 Eosinophils 3 % (0-5) 12/03/16 05:35 Nucleated RBCs 5.0 % (0-0) H 12/01/16 18:25 Atypical Lymphocytes 1 % 12/01/16 18:25 Platelet Estimate SLIGHT DECREASED (NORMAL) 12/04/16 04:50 Platelet Morphology NORMAL (NORMAL) 12/01/16 18:25 Anisocytosis 2+ 12/03/16 05:35 RBC Morph Micro Appear ABNORMAL (NORMAL) 12/01/16 18:25 Eos Smear Source URINE 12/03/16 06:30 Eos Smear Total Cells NONE SEEN (NONE SEEN) 12/03/16 06:30 PT 11.2 SECONDS (9.5-11.5) 12/03/16 05:35 INR 1.08 (0.5-1.4) 12/03/16 05:35 PTT (Actin FS) 19.6 SECONDS (26.0-38.0) L 12/01/16 18:25 Sodium 145 mEq/L (136-145) 12/05/16 10:05 Potassium 2.6 mEq/L (3.5-5.1) L* 12/05/16 10:05 Chloride 123 mEq/L (98-107) H 12/05/16 10:05 Carbon Dioxide 12.2 mEq/L (21.0-31.0) L 12/05/16 10:05 Anion Gap 12.4 (7.0-16.0) 12/05/16 10:05 BUN 97 mg/dL (7-25) H* 12/05/16 10:05 Creatinine 3.5 mg/dL (0.6-1.2) H 12/05/16 10:05 Est GFR ( Amer) TNP 12/05/16 10:05 Est GFR (Non-Af Amer) TNP 12/05/16 10:05 BUN/Creatinine Ratio 27.7 12/05/16 10:05 Glucose 363 mg/dL (70-105) H 12/05/16 10:05 POC Glucose 261 MG/DL (70 - 105) H 12/05/16 12:12 Hemoglobin A1c % 9.0 % (4.0-6.0) H 12/01/16 18:25 Whole Bld Lactic Acid 3.24 mmol/L (0.60-1.99) H* 12/05/16 10:05 Uric Acid 11.6 mg/dL (2.3-6.6) H 12/03/16 05:35 Calcium 9.2 mg/dL (8.6-10.3) 12/05/16 10:05 Magnesium 2.7 mg/dL (1.9-2.7) 12/03/16 05:35 Total Bilirubin 0.5 mg/dL (0.3-1.0) 12/05/16 10:05 AST 8 U/L (13-39) L 12/05/16 10:05 ALT 3 U/L (7-52) L 12/05/16 10:05 Alkaline Phosphatase 83 U/L (34-104) 12/05/16 10:05 Total Protein 5.2 gm/dL (6.0-8.3) L 12/05/16 10:05 Albumin 2.4 gm/dL (3.7-5.3) L 12/05/16 10:05 Globulin 2.8 gm/dL 12/05/16 10:05 Albumin/Globulin Ratio 0.9 (1.0-1.8) L 12/05/16 10:05 TSH 2.49 uIU/ml (0.34-5.60) 12/03/16 05:35 Urine Source SOTO PORT 12/02/16 14:56 Urine Color YELLOW 12/02/16 14:56 Urine Clarity HAZY (CLEAR) 12/02/16 14:56 Urine pH 8.0 (4.6 - 8.0) 12/02/16 14:56 Ur Specific [place] 1.015 (1.005-1.030) 12/02/16 14:56 Urine Protein 100 mg/dL (NEGATIVE) H 12/02/16 14:56 Urine Glucose (UA) 500 mg/dL (NEGATIVE) H 12/02/16 14:56 Urine Ketones NEGATIVE mg/dL (NEGATIVE) 12/02/16 14:56 Urine Blood MODERATE (NEGATIVE) H 12/02/16 14:56 Urine Nitrate POSITIVE (NEGATIVE) H 12/02/16 14:56 Urine Bilirubin NEGATIVE (NEGATIVE) 12/02/16 14:56 Urine Urobilinogen 0.2 E.U./dL (0.2 - 1.0) 12/02/16 14:56 Ur Leukocyte Esterase MODERATE (NEGATIVE) H 12/02/16 14:56 Urine RBC 5-10 /hpf (0-5) H 12/02/16 14:56 Urine WBC 50-100 /hpf (0-5) H 12/02/16 14:56 Ur Epithelial Cells FEW /lpf (FEW) 12/02/16 14:56 Triple Phos Crystals MODERATE /hpf (FEW) 12/02/16 14:56 Urine Bacteria MANY /hpf (NONE SEEN) 12/02/16 14:56 Ur Random Sodium 75 mmol/L 12/03/16 06:30 Urine Creatinine 49.0 mg/dl (28.0-217.0) 12/03/16 06:30 Blood Type O POSITIVE 12/02/16 05:05 Antibody Screen NEGATIVE 12/02/16 05:05 Crossmatch See Detail 12/02/16 05:05 - Physical Exam Vitals and I&O: Vital Signs Temp 98.5 F 12/05/16 04:00 Pulse 86 12/05/16 12:12 Resp 13 12/05/16 09:55 BP 99/44 12/05/16 09:55 Pulse Ox 100 12/05/16 12:12 Intake & Output 12/04/16 12/05/16 12/05/16 18:59 06:59 18:59 Intake Total 1000 3652.083 Output Total 1450 Balance 1000 2202.083 Weight (lbs) 53.07 kg Intake: Intake, IV Amount 1000 3002.083 Dextrose 5% 1,000 ml @ 1000 2002.083 125 mls/hr IV .Q8H [facility] Rx #:[id number] Tube Feeding 300 Blood Product 250 Other 100 Output: Urine 1450 Other: # Bowel Movements 2 Stool Characteristics Soft Soft Formed Formed Black Black Active Medications: Current Medications Acetaminophen (Tylenol) 650 mg PO Q6H PRN PRN Reason: Pain or Fever >101 Stop: 01/31/17 11:18 Bisacodyl (Dulcolax 5 Mg Ec Tab) 10 mg PO BID [facility] Stop: 01/31/17 16:59 Last Admin: 12/05/16 10:10 Dose: Not Given Chlorhexidine Gluconate (Peridex) 15 ml MM 0800,2000 [facility] Stop: 02/03/17 19:59 Epoetin Esequiel (Epogen) 10,000 units SUBQ TuThSa [facility] Stop: 02/01/17 14:29 Last Admin: 12/03/16 16:01 Dose: 10,000 units Dextrose (D5w) 1,000 mls @ 125 mls/hr IV .Q8H [facility] Stop: 02/01/17 14:14 Last Admin: 12/05/16 06:18 Dose: 125 mls/hr Piperacillin Sod/Tazobactam (Sod 2.25 gm/ Dextrose) 50 mls @ 100 mls/hr IV Q8H [facility] Stop: 02/03/17 10:59 Last Admin: 12/05/16 12:35 Dose: 100 mls/hr Metronidazole 500 mg/ (Miscellaneous) 100 mls @ 100 mls/hr IV Q8H [facility] Stop: 02/03/17 09:59 Last Admin: 12/05/16 11:20 Dose: 100 mls/hr Lactated Ringer's (Lactated Ringer) 1,000 mls @ 0 mls/hr IV .Q0M [facility] PRN Reason: TKO Stop: 12/06/16 15:00 Potassium Chloride (Potassium Chloride) 20 meq in 100 mls @ 50 mls/hr IV Q2H [facility] Stop: 12/05/16 15:59 Last Admin: 12/05/16 12:28 Dose: 50 mls/hr Sodium Chloride (Nacl 0.9%) 1,000 mls @ 100 mls/hr IV .Q10H ONE Stop: 12/05/16 20:55 Last Admin: 12/05/16 11:00 Dose: 100 mls/hr Insulin Aspart (Novolog Insulin Sliding Scale) 0 units SUBQ ACHS [facility] PRN Reason: Protocol Stop: 01/31/17 07:29 Last Admin: 12/05/16 12:19 Dose: 7 units Meperidine HCl (Demerol) 12.5 mg IVP UD PRN PRN Reason: POST-OP PAIN Stop: 12/05/16 15:00 Miscellaneous (Vte Chemical Prophylaxis Screen/ Admission) 1 ea MC PRN PRN PRN Reason: PROTOCOL Stop: 01/31/17 13:38 Ondansetron HCl (Zofran) 4 mg IV UD PRN PRN Reason: Nausea / Vomiting Stop: 12/06/16 09:44 Pantoprazole Sodium (Protonix) 40 mg IVP DAILY [facility] Stop: 02/01/17 08:59 Last Admin: 12/05/16 10:10 Dose: Not Given Potassium Chloride (Potassium Chloride Elixir) 20 meq GT DAILY ONE Stop: 12/06/16 12:01 Sodium Bicarbonate (Sodium Bicarbonate) 650 mg PO BID [facility] PRN Reason: Protocol Stop: 01/31/17 16:59 Last Admin: 12/05/16 10:10 Dose: Not Given General: No acute distress, Other (Sedated, post surgery.) HEENT: Atraumatic, Mucous membr. moist/pink Neck: Supple, +2 carotid pulse wo bruit Cardiovascular: Regular rate, Normal S1, Normal S2 Lungs: Clear to auscultation, Other Abdomen: Bowel sounds, Soft, Other (PEG in place.) Extremities: Other (No edema), no Edema Neurological: Sensation intact, Other (Non ambulatory) Skin: Other (Decubit sacral ulcer stage IV), no Significant lesion Psych/Mental Status: Mood NL, Other (Sedated, post surgery) - Procedures Procedures: Procedures Procedure Code Date CHAGO MUSC/FASCIA 20 SQ CM/< 06615 10/24/16 EXCISION OF LEFT HIP MUSCLE, OPEN APPROACH [id number] 10/24/16 Assessment/Plan - Problem List Patient Problems: All Active Problems POOR ORAL INTAKE AND SWALLOWING (Acute) SACRAL AND BILATERAL BUTTOCK SKIN ULCERS (Acute) - Assessment Assessment: Bryan on CKD dehydration FTT 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 Anemia CKD Left hip ulcer s/p debridement w/ Vac B/L heel ulcers s/p debridement s/p Diverting colostomy - Plan Plan: Lab - Result Diagrams 12/03/16 05:35 12/03/16 05:35 Current Medications Acetaminophen (Tylenol) 650 mg PO Q6H PRN PRN Reason: Pain or Fever >101 Stop: 01/31/17 11:18 Bisacodyl (Dulcolax 5 Mg Ec Tab) 10 mg PO BID [facility] Stop: 01/31/17 16:59 Last Admin: 12/03/16 11:07 Dose: 10 mg Dextrose (D5w) 1,000 mls @ 125 mls/hr IV .Q8H [facility] Stop: 02/01/17 14:14 Insulin Aspart (Novolog Insulin Sliding Scale) 0 units SUBQ ACHS [facility] PRN Reason: Protocol Stop: 01/31/17 07:29 Last Admin: 12/03/16 12:32 Dose: 9 units Miscellaneous (Vte Chemical Prophylaxis Screen/ Admission) 1 ea PRN PRN PRN Reason: PROTOCOL Stop: 01/31/17 13:38 Pantoprazole Sodium (Protonix) 40 mg IVP DAILY [facility] Stop: 02/01/17 08:59 Last Admin: 12/03/16 11:07 Dose: 40 mg Sodium Bicarbonate (Sodium Bicarbonate) 650 mg PO BID [facility] PRN Reason: Protocol Stop: 01/31/17 16:59 Last Admin: 12/03/16 11:07 Dose: 650 mg Lab - Result Diagrams 12/05/16 04:50 12/05/16 10:05 kidney fnc gradually improving switched to NS due to elevated BS Had placement of PEG start feeding tonite start epo Hgb down to 7.9 up to 10.2 after transfusion continue IVF, start basal insulin Nutritional Asmnt/Malnutr-PDOC - Dietary Evaluation Malnutrition Findings (Please click <Entered> for more info): Nutritional Asmnt/Malnutrition Start: 12/02/16 14: 44 Text: Status: Complete Freq: Document 12/02/16 14:44 GSUN (Rec: 12/02/16 15:19 GSUN [id number]) Nutritional Asmnt/Malnutrition Patient General Information Nutritional Screening Consult Diagnosis AKF, sacral decubitus ulcer stage IV, HTN, DM, dementia, chronic anemia Pertinent Medical Hx/Surgical Hx CAD, CVA, dementia, psychosis, muscle atrophy, AKF, DM, decubitus ulcer stage IV Subjective Information 81 year old female from SNF. RD consult for low Elliot and elevated blood glucose. Pt was awake, unable to provide nutrition hx. Family at bedside, spoke to family and RN Loren regarding nutrition plan of care, PEG placement consent obtained. Family has no other questions at this time. Elevated BUN, patternmaker metal, K, family reported pt is not on dialysis, "possible HD today" per H&P. Per nursing adm notes , 4-5lb wt loss in 2 weeks. Per family, unaware of UBW, aware of recent wt loss, stated pt stopped eating ~3-4 days ago. Loose skin, moderate to severe muslce fat wasting to chest and clavicles. Current Diet Order/ Nutrition Support NPO Pertinent Medications Dulcolax, D5-0.45ns, Novolog Pertinent Labs 12/01: A1c 9H 12/02: sodium 173H, potassium 5.3H, BUN 169H, creatinie 5.8H , glucose 238H, calcium 10.8H Nutritional Hx/Data Height 1.52 m Height (Calculated Centimeters) 152.4 Current Weight (lbs) 43.545 kg Weight (Calculated Kilograms) 43.5 Weight (Calculated Grams) 08354.9 [place] Body Weight 100 Recent Weight Change Yes Weight Status Approriate GI Symptoms Usual diet at home [facility] Skin Integrity/Comment: Elliot 11. Sacral decubitus ulcer stage IV. Estimated Nutritional Goals Calories/Kcals/Kg IBW 100lb/45.5kg Kcals Calculated 1365-1593kcal (30-35kcal/kg) Protein Calculated 68-73g (1.4-1.6g/kg, ulcer vs renal, ?HD) Fluid: ml Per MD Nutritional Problem 3. Problem Problem Altered nutrition related laboratory values related to Etiology DM aeb Signs/Symptoms: A1c 9H, glucose 238H 2. Problem Problem Increased kcal and prot needs related to Etiology skin integrity, recent weight loss aeb Signs/Symptoms: Sacral decubitus ulcer stage IV, wt loss 4-5lb in 2 weeks per nursing adm notes, moderate to seevre muslce/fat wasting to chest and clavicles 1. Problem Problem Impaired nutrient utilization related to Etiology acute kidney injury aeb Signs/Symptoms: potassium 5.3H, BUN 169H, creatinie 5.8H, calcium 10.8H Intervention/Recommendation Comments 1. Discussed enteral nutrition with family. Family has no further questions at this time . 2. When medically feasible to initiate feeding, recommend Novasource Renal at 30ml/hr x 24hrs, providing 720ml total volume, 1440kcal, 65g protein. Initiate at 10ml/hr for first 24 hrs, monitor for refeeding syndrome and tolerance, increase by 5ml/hr q12hrs until goal. 3. Recommend 1 packet Arginaid daily via tube for wound healing. 4. Monitor weight closely. Hx 4-5lb wt loss in 2 weeks per nursing adm note. Expected Outcomes/Goals Expected Outcomes/Goals 1. Pt to meet at least 75% of estimated nutritinoal eneds on tube feeding with tolerance.
--- NOTE | 2016-12-05 12:43 | General Progress Note ---
Subjective - Review of Systems Service Date: 12/05/16 Subjective: sedated, comfortable, on vent Objective - Results Result Diagrams: 12/05/16 04:50 12/05/16 10:05 Recent Labs: Laboratory Last Values WBC 8.9 Th/cmm (4.8-10.8) 12/05/16 04:50 Corrected WBC (auto) 8.8 Th/cmm (4.8-10.8) 12/01/16 18:25 RBC 3.55 Mil/cmm (3.80-5.20) L 12/05/16 04:50 Hgb 10.2 gm/dL (12-16) L D 12/05/16 04:50 Hct 31.2 % (41.0-60) L D 12/05/16 04:50 MCV 88.1 fl (81-100) 12/05/16 04:50 MCH 28.7 pg (27.0-31.0) 12/05/16 04:50 MCHC Differential 32.6 pg (28.0-36.0) 12/05/16 04:50 RDW 18.6 % (11.5-20.0) 12/05/16 04:50 Plt Count 75 Th/cmm (150-400) L 12/05/16 04:50 MPV 11.5 fl 12/05/16 04:50 Neutrophils % 79.0 % (40.0-80.0) 12/05/16 04:50 Band Neutrophils % 8 % (0-10) 12/04/16 04:50 Lymphocytes % 14.5 % (20.0-50.0) L 12/05/16 04:50 Monocytes % 4.7 % (2.0-10.0) 12/05/16 04:50 Eosinophils % 1.7 % (0.0-5.0) 12/05/16 04:50 Basophils % 0.1 % (0.0-2.0) 12/05/16 04:50 Neutrophils (Manual) 77 % (40-80) 12/04/16 04:50 Lymphocytes 10 % (20-50) L 12/04/16 04:50 Monocytes 5 % (2-10) 12/04/16 04:50 Eosinophils 3 % (0-5) 12/03/16 05:35 Nucleated RBCs 5.0 % (0-0) H 12/01/16 18:25 Atypical Lymphocytes 1 % 12/01/16 18:25 Platelet Estimate SLIGHT DECREASED (NORMAL) 12/04/16 04:50 Platelet Morphology NORMAL (NORMAL) 12/01/16 18:25 Anisocytosis 2+ 12/03/16 05:35 RBC Morph Micro Appear ABNORMAL (NORMAL) 12/01/16 18:25 Eos Smear Source URINE 12/03/16 06:30 Eos Smear Total Cells NONE SEEN (NONE SEEN) 12/03/16 06:30 PT 11.2 SECONDS (9.5-11.5) 12/03/16 05:35 INR 1.08 (0.5-1.4) 12/03/16 05:35 PTT (Actin FS) 19.6 SECONDS (26.0-38.0) L 12/01/16 18:25 Sodium 145 mEq/L (136-145) 12/05/16 10:05 Potassium 2.6 mEq/L (3.5-5.1) L* 12/05/16 10:05 Chloride 123 mEq/L (98-107) H 12/05/16 10:05 Carbon Dioxide 12.2 mEq/L (21.0-31.0) L 12/05/16 10:05 Anion Gap 12.4 (7.0-16.0) 12/05/16 10:05 BUN 97 mg/dL (7-25) H* 12/05/16 10:05 Creatinine 3.5 mg/dL (0.6-1.2) H 12/05/16 10:05 Est GFR ( Amer) TNP 12/05/16 10:05 Est GFR (Non-Af Amer) TNP 12/05/16 10:05 BUN/Creatinine Ratio 27.7 12/05/16 10:05 Glucose 363 mg/dL (70-105) H 12/05/16 10:05 POC Glucose 261 MG/DL (70 - 105) H 12/05/16 12:12 Hemoglobin A1c % 9.0 % (4.0-6.0) H 12/01/16 18:25 Whole Bld Lactic Acid 3.24 mmol/L (0.60-1.99) H* 12/05/16 10:05 Uric Acid 11.6 mg/dL (2.3-6.6) H 12/03/16 05:35 Calcium 9.2 mg/dL (8.6-10.3) 12/05/16 10:05 Magnesium 2.7 mg/dL (1.9-2.7) 12/03/16 05:35 Total Bilirubin 0.5 mg/dL (0.3-1.0) 12/05/16 10:05 AST 8 U/L (13-39) L 12/05/16 10:05 ALT 3 U/L (7-52) L 12/05/16 10:05 Alkaline Phosphatase 83 U/L (34-104) 12/05/16 10:05 Total Protein 5.2 gm/dL (6.0-8.3) L 12/05/16 10:05 Albumin 2.4 gm/dL (3.7-5.3) L 12/05/16 10:05 Globulin 2.8 gm/dL 12/05/16 10:05 Albumin/Globulin Ratio 0.9 (1.0-1.8) L 12/05/16 10:05 TSH 2.49 uIU/ml (0.34-5.60) 12/03/16 05:35 Urine Source SOTO PORT 12/02/16 14:56 Urine Color YELLOW 12/02/16 14:56 Urine Clarity HAZY (CLEAR) 12/02/16 14:56 Urine pH 8.0 (4.6 - 8.0) 12/02/16 14:56 Ur Specific Sunburst 1.015 (1.005-1.030) 12/02/16 14:56 Urine Protein 100 mg/dL (NEGATIVE) H 12/02/16 14:56 Urine Glucose (UA) 500 mg/dL (NEGATIVE) H 12/02/16 14:56 Urine Ketones NEGATIVE mg/dL (NEGATIVE) 12/02/16 14:56 Urine Blood MODERATE (NEGATIVE) H 12/02/16 14:56 Urine Nitrate POSITIVE (NEGATIVE) H 12/02/16 14:56 Urine Bilirubin NEGATIVE (NEGATIVE) 12/02/16 14:56 Urine Urobilinogen 0.2 E.U./dL (0.2 - 1.0) 12/02/16 14:56 Ur Leukocyte Esterase MODERATE (NEGATIVE) H 12/02/16 14:56 Urine RBC 5-10 /hpf (0-5) H 12/02/16 14:56 Urine WBC 50-100 /hpf (0-5) H 12/02/16 14:56 Ur Epithelial Cells FEW /lpf (FEW) 12/02/16 14:56 Triple Phos Crystals MODERATE /hpf (FEW) 12/02/16 14:56 Urine Bacteria MANY /hpf (NONE SEEN) 12/02/16 14:56 Ur Random Sodium 75 mmol/L 12/03/16 06:30 Urine Creatinine 49.0 mg/dl (28.0-217.0) 12/03/16 06:30 Blood Type O POSITIVE 12/02/16 05:05 Antibody Screen NEGATIVE 12/02/16 05:05 Crossmatch See Detail 12/02/16 05:05 - Physical Exam Vitals and I&O: Vital Signs Temp 98.5 F 12/05/16 04:00 Pulse 86 12/05/16 12:12 Resp 13 12/05/16 09:55 BP 99/44 12/05/16 09:55 Pulse Ox 100 12/05/16 12:12 Intake & Output 12/04/16 12/05/16 12/05/16 18:59 06:59 18:59 Intake Total 1000 3652.083 Output Total 1450 Balance 1000 2202.083 Weight (lbs) 53.07 kg Intake: Intake, IV Amount 1000 3002.083 Dextrose 5% 1,000 ml @ 1000 2002.083 125 mls/hr IV .Q8H [facility] Rx #:[id number] Tube Feeding 300 Blood Product 250 Other 100 Output: Urine 1450 Other: # Bowel Movements 2 Stool Characteristics Soft Soft Formed Formed Black Black Active Medications: Current Medications Acetaminophen (Tylenol) 650 mg PO Q6H PRN PRN Reason: Pain or Fever >101 Stop: 01/31/17 11:18 Bisacodyl (Dulcolax 5 Mg Ec Tab) 10 mg PO BID [facility] Stop: 01/31/17 16:59 Last Admin: 12/05/16 10:10 Dose: Not Given Chlorhexidine Gluconate (Peridex) 15 ml MM 0800,2000 [facility] Stop: 02/03/17 19:59 Epoetin Esequiel (Epogen) 10,000 units SUBQ TuThSa [facility] Stop: 02/01/17 14:29 Last Admin: 12/03/16 16:01 Dose: 10,000 units Dextrose (D5w) 1,000 mls @ 125 mls/hr IV .Q8H [facility] Stop: 02/01/17 14:14 Last Admin: 12/05/16 06:18 Dose: 125 mls/hr Piperacillin Sod/Tazobactam (Sod 2.25 gm/ Dextrose) 50 mls @ 100 mls/hr IV Q8H [facility] Stop: 02/03/17 10:59 Last Admin: 12/05/16 12:35 Dose: 100 mls/hr Metronidazole 500 mg/ (Miscellaneous) 100 mls @ 100 mls/hr IV Q8H [facility] Stop: 02/03/17 09:59 Last Admin: 12/05/16 11:20 Dose: 100 mls/hr Lactated Ringer's (Lactated Ringer) 1,000 mls @ 0 mls/hr IV .Q0M BRIELLE PRN Reason: TKO Stop: 12/06/16 15:00 Potassium Chloride (Potassium Chloride) 20 meq in 100 mls @ 50 mls/hr IV Q2H [facility] Stop: 12/05/16 15:59 Last Admin: 12/05/16 12:28 Dose: 50 mls/hr Sodium Chloride (Nacl 0.9%) 1,000 mls @ 100 mls/hr IV .Q10H ONE Stop: 12/05/16 20:55 Last Admin: 12/05/16 11:00 Dose: 100 mls/hr Insulin Aspart (Novolog Insulin Sliding Scale) 0 units SUBQ ACHS BRIELLE PRN Reason: Protocol Stop: 01/31/17 07:29 Last Admin: 12/05/16 12:19 Dose: 7 units Meperidine HCl (Demerol) 12.5 mg IVP UD PRN PRN Reason: POST-OP PAIN Stop: 12/05/16 15:00 Miscellaneous (Vte Chemical Prophylaxis Screen/ Admission) 1 ea MC PRN PRN PRN Reason: PROTOCOL Stop: 01/31/17 13:38 Ondansetron HCl (Zofran) 4 mg IV UD PRN PRN Reason: Nausea / Vomiting Stop: 12/06/16 09:44 Pantoprazole Sodium (Protonix) 40 mg IVP DAILY [facility] Stop: 02/01/17 08:59 Last Admin: 12/05/16 10:10 Dose: Not Given Potassium Chloride (Potassium Chloride Elixir) 20 meq GT DAILY ONE Stop: 12/06/16 12:01 Sodium Bicarbonate (Sodium Bicarbonate) 650 mg PO BID [facility] PRN Reason: Protocol Stop: 01/31/17 16:59 Last Admin: 12/05/16 10:10 Dose: Not Given General: No acute distress, Other (Sedated, post surgery.) HEENT: Atraumatic, Mucous membr. moist/pink Neck: Supple, +2 carotid pulse wo bruit Cardiovascular: Regular rate, Normal S1, Normal S2 Lungs: Clear to auscultation, Other Abdomen: Bowel sounds, Soft, Other (PEG in place.) Extremities: Other (No edema), no Edema Neurological: Sensation intact, Other (Non ambulatory) Skin: Other (Decubit sacral ulcer stage IV), no Significant lesion Psych/Mental Status: Mood NL, Other (Sedated, post surgery) - Procedures Procedures: Procedures Procedure Code Date CHAGO MUSC/FASCIA 20 SQ CM/< 10755 10/24/16 EXCISION OF LEFT HIP MUSCLE, OPEN APPROACH [id number] 10/24/16 Assessment/Plan - Problem List Patient Problems: All Active Problems POOR ORAL INTAKE AND SWALLOWING (Acute) SACRAL AND BILATERAL BUTTOCK SKIN ULCERS (Acute) - Assessment Assessment: Bryan on CKD dehydration FTT 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 Anemia CKD Left hip ulcer s/p debridement w/ Vac B/L heel ulcers s/p debridement s/p Diverting colostomy - Plan Plan: Lab - Result Diagrams 12/03/16 05:35 12/03/16 05:35 Current Medications Acetaminophen (Tylenol) 650 mg PO Q6H PRN PRN Reason: Pain or Fever >101 Stop: 01/31/17 11:18 Bisacodyl (Dulcolax 5 Mg Ec Tab) 10 mg PO BID [facility] Stop: 01/31/17 16:59 Last Admin: 12/03/16 11:07 Dose: 10 mg Dextrose (D5w) 1,000 mls @ 125 mls/hr IV .Q8H [facility] Stop: 02/01/17 14:14 Insulin Aspart (Novolog Insulin Sliding Scale) 0 units SUBQ ACHS BRIELLE PRN Reason: Protocol Stop: 01/31/17 07:29 Last Admin: 12/03/16 12:32 Dose: 9 units Miscellaneous (Vte Chemical Prophylaxis Screen/ Admission) 1 ea PRN PRN PRN Reason: PROTOCOL Stop: 01/31/17 13:38 Pantoprazole Sodium (Protonix) 40 mg IVP DAILY BRIELLE Stop: 02/01/17 08:59 Last Admin: 12/03/16 11:07 Dose: 40 mg Sodium Bicarbonate (Sodium Bicarbonate) 650 mg PO BID BRIELLE PRN Reason: Protocol Stop: 01/31/17 16:59 Last Admin: 12/03/16 11:07 Dose: 650 mg Lab - Result Diagrams 12/05/16 04:50 12/05/16 10:05 kidney fnc gradually improving switched to NS due to elevated BS Had placement of PEG start feeding tonite start epo Hgb down to 7.9 up to 10.2 after transfusion continue IVF, start basal insulin Nutritional Asmnt/Malnutr-PDOC - Dietary Evaluation Malnutrition Findings (Please click <Entered> for more info): Nutritional Asmnt/Malnutrition Start: 12/02/16 14: 44 Text: Status: Complete Freq: Document 12/02/16 14:44 GSUN (Rec: 12/02/16 15:19 GSUN [id number]) Nutritional Asmnt/Malnutrition Patient General Information Nutritional Screening Consult Diagnosis AKF, sacral decubitus ulcer stage IV, HTN, DM, dementia, chronic anemia Pertinent Medical Hx/Surgical Hx CAD, CVA, dementia, psychosis, muscle atrophy, AKF, DM, decubitus ulcer stage IV Subjective Information 81 year old female from SNF. RD consult for low Elliot and elevated blood glucose. Pt was awake, unable to provide nutrition hx. Family at bedside, spoke to family and RN Loren regarding nutrition plan of care, PEG placement consent obtained. Family has no other questions at this time. 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 Per nursing adm notes , 4-5lb wt loss in 2 weeks. Per family, unaware of UBW, aware of recent wt loss, stated pt stopped eating ~3-4 days ago. Loose skin, moderate to severe muslce fat wasting to chest and clavicles. Current Diet Order/ Nutrition Support NPO Pertinent Medications Dulcolax, D5-0.45ns, Novolog Pertinent Labs 12/01: A1c 9H 12/02: sodium 173H, potassium 5.3H, BUN 169H, creatinie 5.8H , glucose 238H, calcium 10.8H Nutritional Hx/Data Height 1.52 m Height (Calculated Centimeters) 152.4 Current Weight (lbs) 43.545 kg Weight (Calculated Kilograms) 43.5 Weight (Calculated Grams) 92850.9 [place] Body Weight 100 Recent Weight Change Yes Weight Status Approriate GI Symptoms Usual diet at home [facility]: pureed, ALISE , [facility] Skin Integrity/Comment: Elliot 11. Sacral decubitus ulcer stage IV. Estimated Nutritional Goals Calories/Kcals/Kg IBW 100lb/45.5kg Kcals Calculated 1365-1593kcal (30-35kcal/kg) Protein Calculated 68-73g (1.4-1.6g/kg, ulcer vs renal, ?HD) Fluid: ml Per MD Nutritional Problem 3. Problem Problem Altered nutrition related laboratory values related to Etiology DM aeb Signs/Symptoms: A1c 9H, glucose 238H 2. Problem Problem Increased kcal and prot needs related to Etiology skin integrity, recent weight loss aeb Signs/Symptoms: Sacral decubitus ulcer stage IV, wt loss 4-5lb in 2 weeks per nursing adm notes, moderate to seevre muslce/fat wasting to chest and clavicles 1. Problem Problem Impaired nutrient utilization related to Etiology acute kidney injury aeb Signs/Symptoms: potassium 5.3H, BUN 169H, creatinie 5.8H, calcium 10.8H Intervention/Recommendation Comments 1. Discussed enteral nutrition with family. Family has no further questions at this time . 2. When medically feasible to initiate feeding, recommend Novasource Renal at 30ml/hr x 24hrs, providing 720ml total volume, 1440kcal, 65g protein. Initiate at 10ml/hr for first 24 hrs, monitor for refeeding syndrome and tolerance, increase by 5ml/hr q12hrs until goal. 3. Recommend 1 packet Arginaid daily via tube for wound healing. 4. Monitor weight closely. Hx 4-5lb wt loss in 2 weeks per nursing adm note. Expected Outcomes/Goals Expected Outcomes/Goals 1. Pt to meet at least 75% of estimated nutritinoal eneds on tube feeding with tolerance.
--- NOTE | 2016-12-05 14:44 | Operative Report ---
DATE OF SURGERY: 12/05/2016 PREOPERATIVE DIAGNOSES: 1. Left hip decubitus ulcers stage 4, size 8 x 6 cm depth to the bone. 2. Left heel decubitus ulcer stage 2, size 2 x 3 cm. 3. Right ankle decubitus ulcer, size 1 x 2 cm, stage 2. 4. Diabetes mellitus. 5. Cerebrovascular accident. POSTOPERATIVE DIAGNOSES: 1. Left hip decubitus ulcers, stage 4, 8 x 6 cm depth to the bone. 2. Left heel decubitus ulcer stage 2, size 2 x 3 cm. 3. Right ankle decubitus ulcer, size 1 x 2 cm, stage 2. 4. Diabetes mellitus. 5. Cerebrovascular accident. OPERATION DONE: 1. Diverting colostomy. 2. Excisional debridement of left hip decubitus ulcer. 3. Application of wound VAC. 4. Excisional debridement of right ankle decubitus ulcer. 5. Excisional debridement of left heel decubitus ulcer. SURGEON: Marcella Goel MD ACTIVITIES COORDINATOR: Dr. Marquez. ANESTHESIA: General. ANESTHESIOLOGIST: Dr. Fritz. ESTIMATED BLOOD LOSS: 30 mL. DESCRIPTION OF PROCEDURE: The patient was given general anesthesia. The abdomen was prepped with Betadine and draped in appropriate manner. A midline incision was made below the umbilicus and extended to the suprapubic area. Bleeders were coagulated. The abdominal cavity was entered. No previous surgery had been done on this patient, in the abdomen. The descending colon was identified and transected. The distal end staple line was reinforced with 3-0 silk. The proximal portion of the colon was brought out as a diverting colostomy in the left lower quadrant of the abdomen. The colon was sutured to the anterior abdominal wall with 3-0 silk and additional sutures were placed in the mesentery to the lateral abdominal wall to prevent internal herniation. The abdominal incision was closed with running suture of #1 PDS following correct sponge count. The colostomy was matured utilizing inverting suture of 4-0 Vicryl and the abdominal incision was closed with 4-0 Vicryl. Sterile dressing was used to isolate the abdominal incision from the colostomy site. The patient was then turned on the right side and the decubitus ulcer of the left hip was debrided sharply to good granulation tissue. All necrotic tissue was excised. A silver sponge was then applied with a bridge for the decubitus ulcer. Wound VAC was applied at 75 mmHg. The additional ulcers in both feet were debrided sharply with scissors and Venelex and Optifoam was applied. The patient tolerated the procedure well. [facility]# [id number]
[2016-12-05] MEDS: Chlorhexidine Gluconate 0.12% 15mL Mouthwash MM SCH (20:44)
[2016-12-05] MEDS: Insulin Detemir 100 units/mL 10mL Vial SUBQ SCH (21:31)
[2016-12-06] MEDS: metroNIDAZOLE 500mg/NS 100mL 500 MG in Premix Fluid 1 BAG IV SCH ×3 (01:56→17:16)
[2016-12-06 05:15] LABS: % BASOPHILS 0.2 % (0.0-2.0); % EOSINOPHILS 1.2 % (0.0-5.0); % LYMPHOCYTES 11.3 % (20.0-50.0); % MONOCYTES 4.8 % (2.0-10.0); % NEUTROPHILS 82.5 % (40.0-80.0); EOSINOPHILE ABSOLUTE 0.1 Th/cmm (0.1-0.4); HEMATOCRIT 28.2 % (41.0-60); HEMOGLOBIN 9.3 gm/dL (12-16); LYMPHOCYTE ABSOLUTE 1.1 Th/cmm (1.5-3.0); MEAN CORPUSCULAR HEMOGLOBIN 28.9 pg (27.0-31.0); MEAN CORPUSCULAR HGB CONC 32.9 pg (28.0-36.0); MEAN PLATELET VOLUME 14.1 fl; MONOCYTE ABSOLUTE 0.5 Th/cmm (0.3-1.0); NEUTROPHILE ABSOLUTE 7.7 Th/cmm (1.8-8.0); PLATELET COUNT 79 Th/cmm (150-400); RED BLOOD COUNT 3.21 Mil/cmm (3.80-5.20); WHITE BLOOD COUNT 9.4 Th/cmm (4.8-10.8)
[2016-12-06 05:34] LABS: CALCIUM SERUM 8.8 mg/dL (8.6-10.3); CARBON DIOXIDE 13.8 mEq/L (21.0-31.0); CHLORIDE 128 mEq/L (98-107); CREATININE - SERUM 3.2 mg/dL (0.6-1.2); GLUCOSE 68 mg/dL (70-105); POTASSIUM SERUM 3.8 mEq/L (3.5-5.1); SODIUM SERUM 152 mEq/L (136-145)
[2016-12-06 05:38] LABS: BUN - UREA NITROGEN 85 mg/dL (7-25)
[2016-12-06] MEDS ORDERED: Dextrose 50% 50 mL Abboject IVP ONE ×2 (06:43→06:45)
[2016-12-06] MEDS: INSULIN ASPART SLIDING SCALE 100 UNITS/ML UNIT SUBQ SCH ×4 (06:43→21:03)
[2016-12-06] MEDS: Chlorhexidine Gluconate 0.12% 15mL Mouthwash MM SCH ×2 (09:00→19:50)
[2016-12-06 09:06] LABS: pH 7.35 (7.35-7.45)
[2016-12-06] MEDS: Venelex 60gm Tube TP SCH (09:07)
[2016-12-06] MEDS: Multivitamin w/ Minerals Tab PO SCH (09:07)
[2016-12-06 09:09] LABS: ALLEN TEST Positive
--- NOTE | 2016-12-06 09:30 | General Progress Note ---
Subjective - Review of Systems Service Date: 12/06/16 Subjective: Patient non verbal. Objective - Results Result Diagrams: 12/06/16 04:40 12/06/16 04:40 Recent Labs: Laboratory Last Values WBC 9.4 Th/cmm (4.8-10.8) 12/06/16 04:40 Corrected WBC (auto) 8.8 Th/cmm (4.8-10.8) 12/01/16 18:25 RBC 3.21 Mil/cmm (3.80-5.20) L 12/06/16 04:40 Hgb 9.3 gm/dL (12-16) L 12/06/16 04:40 Hct 28.2 % (41.0-60) L 12/06/16 04:40 MCV 88.0 fl (81-100) 12/06/16 04:40 MCH 28.9 pg (27.0-31.0) 12/06/16 04:40 MCHC Differential 32.9 pg (28.0-36.0) 12/06/16 04:40 RDW 18.0 % (11.5-20.0) 12/06/16 04:40 Plt Count 79 Th/cmm (150-400) L 12/06/16 04:40 MPV 14.1 fl 12/06/16 04:40 Neutrophils % 82.5 % (40.0-80.0) H 12/06/16 04:40 Band Neutrophils % 8 % (0-10) 12/04/16 04:50 Lymphocytes % 11.3 % (20.0-50.0) L 12/06/16 04:40 Monocytes % 4.8 % (2.0-10.0) 12/06/16 04:40 Eosinophils % 1.2 % (0.0-5.0) 12/06/16 04:40 Basophils % 0.2 % (0.0-2.0) 12/06/16 04:40 Neutrophils (Manual) 77 % (40-80) 12/04/16 04:50 Lymphocytes 10 % (20-50) L 12/04/16 04:50 Monocytes 5 % (2-10) 12/04/16 04:50 Eosinophils 3 % (0-5) 12/03/16 05:35 Nucleated RBCs 5.0 % (0-0) H 12/01/16 18:25 Atypical Lymphocytes 1 % 12/01/16 18:25 Platelet Estimate SLIGHT DECREASED (NORMAL) 12/04/16 04:50 Platelet Morphology NORMAL (NORMAL) 12/01/16 18:25 Anisocytosis 2+ 12/03/16 05:35 RBC Morph Micro Appear ABNORMAL (NORMAL) 12/01/16 18:25 Eos Smear Source URINE 12/03/16 06:30 Eos Smear Total Cells NONE SEEN (NONE SEEN) 12/03/16 06:30 PT 11.2 SECONDS (9.5-11.5) 12/03/16 05:35 INR 1.08 (0.5-1.4) 12/03/16 05:35 PTT (Actin FS) 19.6 SECONDS (26.0-38.0) L 12/01/16 18:25 Specimen Source Arterial 12/06/16 08:47 Sample Site Left Radial 12/06/16 08:47 pH 7.35 (7.35-7.45) 12/06/16 08:47 pCO2 19.0 mmHg (35.0-45.0) L* 12/06/16 08:47 pO2 177.0 mmHg (80.0-100.0) H 12/06/16 08:47 HCO3 14.9 mEq/L (20.0-26.0) L 12/06/16 08:47 Base Excess -12.9 mEq/L (-3.0-3.0) L 12/06/16 08:47 O2 Saturation 100.0 % (92.0-100.0) 12/06/16 08:47 Isidro Test Positive 12/06/16 08:47 Vent Rate 8 12/06/16 08:47 Inspired O2 40 12/06/16 08:47 Tidal Volume 450 12/06/16 08:47 PEEP 5 12/06/16 08:47 Pressure (ins/psv/peep) 10 12/06/16 08:47 Critical Value O. Storm 12/06/16 08:47 Sodium 152 mEq/L (136-145) H 12/06/16 04:40 Potassium 3.8 mEq/L (3.5-5.1) 12/06/16 04:40 Chloride 128 mEq/L (98-107) H 12/06/16 04:40 Carbon Dioxide 13.8 mEq/L (21.0-31.0) L 12/06/16 04:40 Anion Gap 14.0 (7.0-16.0) 12/06/16 04:40 BUN 85 mg/dL (7-25) H* 12/06/16 04:40 Creatinine 3.2 mg/dL (0.6-1.2) H 12/06/16 04:40 Est GFR ( Amer) TNP 12/06/16 04:40 Est GFR (Non-Af Amer) TNP 12/06/16 04:40 BUN/Creatinine Ratio 26.6 12/06/16 04:40 Glucose 174 mg/dL (70-105) H 12/06/16 07:10 POC Glucose 120 MG/DL (70 - 105) H 12/06/16 07:07 Hemoglobin A1c % 9.0 % (4.0-6.0) H 12/01/16 18:25 Whole Bld Lactic Acid 2.84 mmol/L (0.60-1.99) H* 12/05/16 12:05 Uric Acid 11.6 mg/dL (2.3-6.6) H 12/03/16 05:35 Calcium 8.8 mg/dL (8.6-10.3) 12/06/16 04:40 Magnesium 2.7 mg/dL (1.9-2.7) 12/03/16 05:35 Total Bilirubin 0.5 mg/dL (0.3-1.0) 12/05/16 10:05 AST 8 U/L (13-39) L 12/05/16 10:05 ALT 3 U/L (7-52) L 12/05/16 10:05 Alkaline Phosphatase 83 U/L (34-104) 12/05/16 10:05 Total Protein 5.2 gm/dL (6.0-8.3) L 12/05/16 10:05 Albumin 2.4 gm/dL (3.7-5.3) L 12/05/16 10:05 Globulin 2.8 gm/dL 12/05/16 10:05 Albumin/Globulin Ratio 0.9 (1.0-1.8) L 12/05/16 10:05 TSH 2.49 uIU/ml (0.34-5.60) 12/03/16 05:35 Urine Source SOTO PORT 12/02/16 14:56 Urine Color YELLOW 12/02/16 14:56 Urine Clarity HAZY (CLEAR) 12/02/16 14:56 Urine pH 8.0 (4.6 - 8.0) 12/02/16 14:56 Ur Specific [place] 1.015 (1.005-1.030) 12/02/16 14:56 Urine Protein 100 mg/dL (NEGATIVE) H 12/02/16 14:56 Urine Glucose (UA) 500 mg/dL (NEGATIVE) H 12/02/16 14:56 Urine Ketones NEGATIVE mg/dL (NEGATIVE) 12/02/16 14:56 Urine Blood MODERATE (NEGATIVE) H 12/02/16 14:56 Urine Nitrate POSITIVE (NEGATIVE) H 12/02/16 14:56 Urine Bilirubin NEGATIVE (NEGATIVE) 12/02/16 14:56 Urine Urobilinogen 0.2 E.U./dL (0.2 - 1.0) 12/02/16 14:56 Ur Leukocyte Esterase MODERATE (NEGATIVE) H 12/02/16 14:56 Urine RBC 5-10 /hpf (0-5) H 12/02/16 14:56 Urine WBC 50-100 /hpf (0-5) H 12/02/16 14:56 Ur Epithelial Cells FEW /lpf (FEW) 12/02/16 14:56 Triple Phos Crystals MODERATE /hpf (FEW) 12/02/16 14:56 Urine Bacteria MANY /hpf (NONE SEEN) 12/02/16 14:56 Urine Osmolality 488 mOsmol/kg 12/03/16 06:30 Ur Random Sodium 75 mmol/L 12/03/16 06:30 Urine Creatinine 49.0 mg/dl (28.0-217.0) 12/03/16 06:30 Blood Type O POSITIVE 12/02/16 05:05 Antibody Screen NEGATIVE 12/02/16 05:05 Crossmatch See Detail 12/02/16 05:05 - Physical Exam Vitals and I&O: Vital Signs Temp 96.7 F 12/06/16 06:00 Pulse 74 12/06/16 07:00 Resp 16 12/06/16 07:00 BP 127/64 12/06/16 07:00 Pulse Ox 100 12/06/16 08:00 Intake & Output 1012/06/16 12/06/16 18:59 06:59 18:59 Intake Total 388.333 300 Output Total 650 650 Balance -261.667 -350 Weight (lbs) 53.07 kg 53.07 kg Intake: Intake, IV Amount 338.333 200 KCL 20mEq/100mL Premix 20 88.333 meq In 100 ml @ 50 mls/ hr IV Q2H [facility] Rx#: [id number] Piperacillin Sodium/ 50 100 Tazobact 2.25 gm In Dextrose 5% 50 ml @ 100 mls/hr IV Q8H [facility] Rx#: [id number] metroNIDAZOLE 500mg/NS 200 100 100mL 500 mg In Premix Fluid 1 bag @ 100 mls/hr IV Q8H [facility] Rx#:[id number] Other 50 100 Output: Urine 650 650 Stool 0 Other: # Bowel Movements 0 Active Medications: Current Medications Acetaminophen (Tylenol) 650 mg PO Q6H PRN PRN Reason: Mild Pain or Fever >101 Stop: 01/31/17 11:18 Bisacodyl (Dulcolax 5 Mg Ec Tab) 10 mg PO BID [facility] Stop: 01/31/17 16:59 Last Admin: 12/06/16 09:07 Dose: Not Given Chlorhexidine Gluconate (Peridex) 15 ml MM 08,1999 [facility] Stop: 02/03/17 19:59 Last Admin: 12/06/16 09:00 Dose: 15 ml Epoetin Esequiel (Epogen) 10,000 units SUBQ TuThSa [facility] Stop: 02/01/17 14:29 Last Admin: 12/03/16 16:01 Dose: 10,000 units Hydromorphone HCl (Dilaudid) 1 mg IVP Q6HR PRN PRN Reason: Pain (Moderate-Severe) Stop: 02/04/17 08:11 Piperacillin Sod/Tazobactam (Sod 2.25 gm/ Dextrose) 50 mls @ 100 mls/hr IV Q8H [facility] Stop: 02/03/17 10:59 Last Infusion: 12/06/16 03:40 Dose: Infused Metronidazole 500 mg/ (Miscellaneous) 100 mls @ 100 mls/hr IV Q8H [facility] Stop: 02/03/17 09:59 Last Infusion: 12/06/16 03:00 Dose: Infused Dextrose (D5w) 1,000 mls @ 100 mls/hr IV .Q10H [facility] Stop: 02/04/17 09:29 Insulin Aspart (Novolog Insulin Sliding Scale) 0 units SUBQ ACHS [facility] PRN Reason: Protocol Stop: 01/31/17 07:29 Last Admin: 12/06/16 06:43 Dose: Not Given Insulin Detemir (Levemir Insulin) 10 units SUBQ HS [facility] PRN Reason: Protocol Stop: 02/03/17 20:59 Last Admin: 12/05/16 21:31 Dose: 10 unit Miscellaneous (Vte Chemical Prophylaxis Screen/ Admission) 1 ea MC PRN PRN PRN Reason: PROTOCOL Stop: 01/31/17 13:38 Miscellaneous (Clinical Monitoring) 1 ea MC DAILY PRN PRN Reason: RENAL Stop: 02/04/17 08:05 Ondansetron HCl (Zofran) 4 mg IV UD PRN PRN Reason: Nausea / Vomiting Stop: 12/06/16 09:44 Pantoprazole Sodium (Protonix) 40 mg IVP DAILY [facility] Stop: 02/01/17 08:59 Last Admin: 12/06/16 09:07 Dose: 40 mg Potassium Chloride (Potassium Chloride Elixir) 20 meq GT DAILY ONE Stop: 12/06/16 12:01 Sodium Bicarbonate (Sodium Bicarbonate) 650 mg PO BID [facility] PRN Reason: Protocol Stop: 01/31/17 16:59 Last Admin: 12/06/16 09:07 Dose: 650 mg General: Alert, Other (Patient is awake, restless trying to take off tubes.) HEENT: Atraumatic, Mucous membr. moist/pink, Other (Patient is intubated) Neck: Supple, +2 carotid pulse wo bruit Cardiovascular: Regular rate, Normal S1, Normal S2 Lungs: Clear to auscultation, Other Abdomen: Bowel sounds, Soft, Other (PEG in place, Colostomy in place) Extremities: Other (No edema), no Edema Neurological: Other (Non ambulatory), no Sensation intact Skin: Other (Decubit sacral ulcer stage IV), no Significant lesion Psych/Mental Status: Other (Awake, alert, restless, intubated), no Mood NL - Procedures Procedures: Procedures Procedure Code Date BYPASS DESCENDING COLON TO CUTANEOUS, OPEN APPROACH [id number] 12/02/16 COLOSTOMY 28898 12/02/16 CHAGO BONE 20 SQ CM/< [id number] 12/02/16 CHAGO MUSC/FASCIA 20 SQ CM/< [id number] 10/24/16 CHAGO SUBQ TISSUE 20 SQ CM/< [id number] 12/02/16 EXCISION OF L FOOT SUBCU/FASCIA, OPEN APPROACH [id number] 12/02/16 EXCISION OF LEFT HIP MUSCLE, OPEN APPROACH [id number] 10/24/16 EXCISION OF LEFT PELVIC BONE, OPEN APPROACH [id number] 12/02/16 EXCISION OF R FOOT SUBCU/FASCIA, OPEN APPROACH [id number] 12/02/16 Assessment/Plan - Problem List Patient Problems: All Active Problems POOR ORAL INTAKE AND SWALLOWING (Acute) SACRAL AND BILATERAL BUTTOCK SKIN ULCERS (Acute) - Assessment Assessment: Current Active Problems Problem Status Onset POOR ORAL INTAKE AND SWALLOWING Acute Patient is awake, non verbal, in no acute distress. Na, Creatinine improving. Colostomy in place. Patient will be weaning today. Dx: Hypernatremia, AKF, Chronic anemia, Sacral decubitus ulcer stage IV, HTN, DM, Dementia - Plan Plan: PEG in place, fedding started. Already seen by [facility], GI, and surgery. NA, and Creatinine improving. Case discussed with family. Will continue to monitor. Nutritional Asmnt/Malnutr-PDOC - Dietary Evaluation Malnutrition Findings (Please click <Entered> for more info): Nutritional Asmnt/Malnutrition Start: 12/02/16 14: 44 Text: Status: Complete Freq: Document 12/02/16 14:44 GSUN (Rec: 12/02/16 15:19 GSUN [id number]) Nutritional Asmnt/Malnutrition Patient General Information Nutritional Screening Consult Diagnosis AKF, sacral decubitus ulcer stage IV, HTN, DM, dementia, chronic anemia Pertinent Medical Hx/Surgical Hx CAD, CVA, dementia, psychosis, muscle atrophy, AKF, DM, decubitus ulcer stage IV Subjective Information 81 year old female from SNF. RD consult for low Elliot and elevated blood glucose. Pt was awake, unable to provide nutrition hx. Family at bedside, spoke to family and HAI Pimentel regarding nutrition plan of care, PEG placement consent obtained. Family has no other questions at this time. 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 Per nursing adm notes , 4-5lb wt loss in 2 weeks. Per family, unaware of UBW, aware of recent wt loss, stated pt stopped eating ~3-4 days ago. Loose skin, moderate to severe muslce fat wasting to chest and clavicles. Current Diet Order/ Nutrition Support NPO Pertinent Medications Dulcolax, D5-0.45ns, Novolog Pertinent Labs 12/01: A1c 9H 12/02: sodium 173H, potassium 5.3H, BUN 169H, creatinie 5.8H , glucose 238H, calcium 10.8H Nutritional Hx/Data Height 1.52 m Height (Calculated Centimeters) 152.4 Current Weight (lbs) 43.545 kg Weight (Calculated Kilograms) 43.5 Weight (Calculated Grams) 52932.9 [place] Body Weight 100 Recent Weight Change Yes Weight Status Approriate GI Symptoms Usual diet at home [facility]: pureed, [facility] Skin Integrity/Comment: Elliot 11. Sacral decubitus ulcer stage IV. Estimated Nutritional Goals Calories/Kcals/Kg IBW 100lb/45.5kg Kcals Calculated 1365-1593kcal (30-35kcal/kg) Protein Calculated 68-73g (1.4-1.6g/kg, ulcer vs renal, ?HD) Fluid: ml Per MD Nutritional Problem 3. Problem Problem Altered nutrition related laboratory values related to Etiology DM aeb Signs/Symptoms: A1c 9H, glucose 238H 2. Problem Problem Increased kcal and prot needs related to Etiology skin integrity, recent weight loss aeb Signs/Symptoms: Sacral decubitus ulcer stage IV, wt loss 4-5lb in 2 weeks per nursing adm notes, moderate to seevre muslce/fat wasting to chest and clavicles 1. Problem Problem Impaired nutrient utilization related to Etiology acute kidney injury aeb Signs/Symptoms: potassium 5.3H, BUN 169H, creatinie 5.8H, calcium 10.8H Intervention/Recommendation Comments 1. Discussed enteral nutrition with family. Family has no further questions at this time . 2. When medically feasible to initiate feeding, recommend Novasource Renal at 30ml/hr x 24hrs, providing 720ml total volume, 1440kcal, 65g protein. Initiate at 10ml/hr for first 24 hrs, monitor for refeeding syndrome and tolerance, increase by 5ml/hr q12hrs until goal. 3. Recommend 1 packet Arginaid daily via tube for wound healing. 4. Monitor weight closely. Hx 4-5lb wt loss in 2 weeks per nursing adm note. Expected Outcomes/Goals Expected Outcomes/Goals 1. Pt to meet at least 75% of estimated nutritinoal eneds on tube feeding with tolerance.
--- NOTE | 2016-12-06 09:30 | General Progress Note ---
Subjective - Review of Systems Service Date: 12/06/16 Subjective: Patient non verbal. Objective - Results Result Diagrams: 12/06/16 04:40 12/06/16 04:40 Recent Labs: Laboratory Last Values WBC 9.4 Th/cmm (4.8-10.8) 12/06/16 04:40 Corrected WBC (auto) 8.8 Th/cmm (4.8-10.8) 12/01/16 18:25 RBC 3.21 Mil/cmm (3.80-5.20) L 12/06/16 04:40 Hgb 9.3 gm/dL (12-16) L 12/06/16 04:40 Hct 28.2 % (41.0-60) L 12/06/16 04:40 MCV 88.0 fl (81-100) 12/06/16 04:40 MCH 28.9 pg (27.0-31.0) 12/06/16 04:40 MCHC Differential 32.9 pg (28.0-36.0) 12/06/16 04:40 RDW 18.0 % (11.5-20.0) 12/06/16 04:40 Plt Count 79 Th/cmm (150-400) L 12/06/16 04:40 MPV 14.1 fl 12/06/16 04:40 Neutrophils % 82.5 % (40.0-80.0) H 12/06/16 04:40 Band Neutrophils % 8 % (0-10) 12/04/16 04:50 Lymphocytes % 11.3 % (20.0-50.0) L 12/06/16 04:40 Monocytes % 4.8 % (2.0-10.0) 12/06/16 04:40 Eosinophils % 1.2 % (0.0-5.0) 12/06/16 04:40 Basophils % 0.2 % (0.0-2.0) 12/06/16 04:40 Neutrophils (Manual) 77 % (40-80) 12/04/16 04:50 Lymphocytes 10 % (20-50) L 12/04/16 04:50 Monocytes 5 % (2-10) 12/04/16 04:50 Eosinophils 3 % (0-5) 12/03/16 05:35 Nucleated RBCs 5.0 % (0-0) H 12/01/16 18:25 Atypical Lymphocytes 1 % 12/01/16 18:25 Platelet Estimate SLIGHT DECREASED (NORMAL) 12/04/16 04:50 Platelet Morphology NORMAL (NORMAL) 12/01/16 18:25 Anisocytosis 2+ 12/03/16 05:35 RBC Morph Micro Appear ABNORMAL (NORMAL) 12/01/16 18:25 Eos Smear Source URINE 12/03/16 06:30 Eos Smear Total Cells NONE SEEN (NONE SEEN) 12/03/16 06:30 PT 11.2 SECONDS (9.5-11.5) 12/03/16 05:35 INR 1.08 (0.5-1.4) 12/03/16 05:35 PTT (Actin FS) 19.6 SECONDS (26.0-38.0) L 12/01/16 18:25 Specimen Source Arterial 12/06/16 08:47 Sample Site Left Radial 12/06/16 08:47 pH 7.35 (7.35-7.45) 12/06/16 08:47 pCO2 19.0 mmHg (35.0-45.0) L* 12/06/16 08:47 pO2 177.0 mmHg (80.0-100.0) H 12/06/16 08:47 HCO3 14.9 mEq/L (20.0-26.0) L 12/06/16 08:47 Base Excess -12.9 mEq/L (-3.0-3.0) L 12/06/16 08:47 O2 Saturation 100.0 % (92.0-100.0) 12/06/16 08:47 Isidro Test Positive 12/06/16 08:47 Vent Rate 8 12/06/16 08:47 Inspired O2 40 12/06/16 08:47 Tidal Volume 450 12/06/16 08:47 PEEP 5 12/06/16 08:47 Pressure (ins/psv/peep) 10 12/06/16 08:47 Critical Value O. Storm 12/06/16 08:47 Sodium 152 mEq/L (136-145) H 12/06/16 04:40 Potassium 3.8 mEq/L (3.5-5.1) 12/06/16 04:40 Chloride 128 mEq/L (98-107) H 12/06/16 04:40 Carbon Dioxide 13.8 mEq/L (21.0-31.0) L 12/06/16 04:40 Anion Gap 14.0 (7.0-16.0) 12/06/16 04:40 BUN 85 mg/dL (7-25) H* 12/06/16 04:40 Creatinine 3.2 mg/dL (0.6-1.2) H 12/06/16 04:40 Est GFR ( Amer) TNP 12/06/16 04:40 Est GFR (Non-Af Amer) TNP 12/06/16 04:40 BUN/Creatinine Ratio 26.6 12/06/16 04:40 Glucose 174 mg/dL (70-105) H 12/06/16 07:10 POC Glucose 120 MG/DL (70 - 105) H 12/06/16 07:07 Hemoglobin A1c % 9.0 % (4.0-6.0) H 12/01/16 18:25 Whole Bld Lactic Acid 2.84 mmol/L (0.60-1.99) H* 12/05/16 12:05 Uric Acid 11.6 mg/dL (2.3-6.6) H 12/03/16 05:35 Calcium 8.8 mg/dL (8.6-10.3) 12/06/16 04:40 Magnesium 2.7 mg/dL (1.9-2.7) 12/03/16 05:35 Total Bilirubin 0.5 mg/dL (0.3-1.0) 12/05/16 10:05 AST 8 U/L (13-39) L 12/05/16 10:05 ALT 3 U/L (7-52) L 12/05/16 10:05 Alkaline Phosphatase 83 U/L (34-104) 12/05/16 10:05 Total Protein 5.2 gm/dL (6.0-8.3) L 12/05/16 10:05 Albumin 2.4 gm/dL (3.7-5.3) L 12/05/16 10:05 Globulin 2.8 gm/dL 12/05/16 10:05 Albumin/Globulin Ratio 0.9 (1.0-1.8) L 12/05/16 10:05 TSH 2.49 uIU/ml (0.34-5.60) 12/03/16 05:35 Urine Source SOTO PORT 12/02/16 14:56 Urine Color YELLOW 12/02/16 14:56 Urine Clarity HAZY (CLEAR) 12/02/16 14:56 Urine pH 8.0 (4.6 - 8.0) 12/02/16 14:56 Ur Specific [place] 1.015 (1.005-1.030) 12/02/16 14:56 Urine Protein 100 mg/dL (NEGATIVE) H 12/02/16 14:56 Urine Glucose (UA) 500 mg/dL (NEGATIVE) H 12/02/16 14:56 Urine Ketones NEGATIVE mg/dL (NEGATIVE) 12/02/16 14:56 Urine Blood MODERATE (NEGATIVE) H 12/02/16 14:56 Urine Nitrate POSITIVE (NEGATIVE) H 12/02/16 14:56 Urine Bilirubin NEGATIVE (NEGATIVE) 12/02/16 14:56 Urine Urobilinogen 0.2 E.U./dL (0.2 - 1.0) 12/02/16 14:56 Ur Leukocyte Esterase MODERATE (NEGATIVE) H 12/02/16 14:56 Urine RBC 5-10 /hpf (0-5) H 12/02/16 14:56 Urine WBC 50-100 /hpf (0-5) H 12/02/16 14:56 Ur Epithelial Cells FEW /lpf (FEW) 12/02/16 14:56 Triple Phos Crystals MODERATE /hpf (FEW) 12/02/16 14:56 Urine Bacteria MANY /hpf (NONE SEEN) 12/02/16 14:56 Urine Osmolality 488 mOsmol/kg 12/03/16 06:30 Ur Random Sodium 75 mmol/L 12/03/16 06:30 Urine Creatinine 49.0 mg/dl (28.0-217.0) 12/03/16 06:30 Blood Type O POSITIVE 12/02/16 05:05 Antibody Screen NEGATIVE 12/02/16 05:05 Crossmatch See Detail 12/02/16 05:05 - Physical Exam Vitals and I&O: Vital Signs Temp 96.7 F 12/06/16 06:00 Pulse 74 12/06/16 07:00 Resp 16 12/06/16 07:00 BP 127/64 12/06/16 07:00 Pulse Ox 100 12/06/16 08:00 Intake & Output 1012/06/16 12/06/16 18:59 06:59 18:59 Intake Total 388.333 300 Output Total 650 650 Balance -261.667 -350 Weight (lbs) 53.07 kg 53.07 kg Intake: Intake, IV Amount 338.333 200 KCL 20mEq/100mL Premix 20 88.333 meq In 100 ml @ 50 mls/ hr IV Q2H [facility] Rx#: [id number] Piperacillin Sodium/ 50 100 Tazobact 2.25 gm In Dextrose 5% 50 ml @ 100 mls/hr IV Q8H [facility] Rx#: [id number] metroNIDAZOLE 500mg/NS 200 100 100mL 500 mg In Premix Fluid 1 bag @ 100 mls/hr IV Q8H [facility] Rx#:[id number] Other 50 100 Output: Urine 650 650 Stool 0 Other: # Bowel Movements 0 Active Medications: Current Medications Acetaminophen (Tylenol) 650 mg PO Q6H PRN PRN Reason: Mild Pain or Fever >101 Stop: 01/31/17 11:18 Bisacodyl (Dulcolax 5 Mg Ec Tab) [address] [facility] Stop: 01/31/17 16:59 Last Admin: 12/06/16 09:07 Dose: Not Given Chlorhexidine Gluconate (Peridex) 15 ml MM 08,1999 [facility] Stop: 02/03/17 19:59 Last Admin: 12/06/16 09:00 Dose: 15 ml Epoetin Esequiel (Epogen) 10,[address] [facility] Stop: 02/01/17 14:29 Last Admin: 12/03/16 16:01 Dose: 10,000 units Hydromorphone HCl (Dilaudid) 1 mg IVP Q6HR PRN PRN Reason: Pain (Moderate-Severe) Stop: 02/04/17 08:11 Piperacillin Sod/Tazobactam (Sod 2.25 gm/ Dextrose) 50 mls @ 100 mls/hr IV Q8H [facility] Stop: 02/03/17 10:59 Last Infusion: 12/06/16 03:40 Dose: Infused Metronidazole 500 mg/ (Miscellaneous) 100 mls @ 100 mls/hr IV Q8H [facility] Stop: 02/03/17 09:59 Last Infusion: 12/06/16 03:00 Dose: Infused Dextrose (D5w) 1,000 mls @ 100 mls/hr IV .Q10H [facility] Stop: 02/04/17 09:29 Insulin Aspart (Novolog Insulin Sliding Scale) 0 units SUBQ ACHS [facility] PRN Reason: Protocol Stop: 01/31/17 07:29 Last Admin: 12/06/16 06:43 Dose: Not Given Insulin Detemir (Levemir Insulin) 10 units SUBQ HS [facility] PRN Reason: Protocol Stop: 02/03/17 20:59 Last Admin: 12/05/16 21:31 Dose: 10 unit Miscellaneous (Vte Chemical Prophylaxis Screen/ Admission) 1 ea MC PRN PRN PRN Reason: PROTOCOL Stop: 01/31/17 13:38 Miscellaneous (Clinical Monitoring) 1 ea MC DAILY PRN PRN Reason: RENAL Stop: 02/04/17 08:05 Ondansetron HCl (Zofran) 4 mg IV UD PRN PRN Reason: Nausea / Vomiting Stop: 12/06/16 09:44 Pantoprazole Sodium (Protonix) 40 mg IVP DAILY [facility] Stop: 02/01/17 08:59 Last Admin: 12/06/16 09:07 Dose: 40 mg Potassium Chloride (Potassium Chloride Elixir) 20 meq GT DAILY ONE Stop: 12/06/16 12:01 Sodium Bicarbonate (Sodium Bicarbonate) 650 mg PO BID [facility] PRN Reason: Protocol Stop: 01/31/17 16:59 Last Admin: 12/06/16 09:07 Dose: 650 mg General: Alert, Other (Patient is awake, restless trying to take off tubes.) HEENT: Atraumatic, Mucous membr. moist/pink, Other (Patient is intubated) Neck: Supple, +2 carotid pulse wo bruit Cardiovascular: Regular rate, Normal S1, Normal S2 Lungs: Clear to auscultation, Other Abdomen: Bowel sounds, Soft, Other (PEG in place, Colostomy in place) Extremities: Other (No edema), no Edema Neurological: Other (Non ambulatory), no Sensation intact Skin: Other (Decubit sacral ulcer stage IV), no Significant lesion Psych/Mental Status: Other (Awake, alert, restless, intubated), no Mood NL - Procedures Procedures: Procedures Procedure Code Date BYPASS DESCENDING COLON TO CUTANEOUS, OPEN APPROACH [id number] 12/02/16 COLOSTOMY 29910 12/02/16 CHAGO BONE 20 SQ CM/< 75951 12/02/16 CHAGO MUSC/FASCIA 20 SQ CM/< 12995 10/24/16 CHAGO SUBQ TISSUE 20 SQ CM/< 05317 12/02/16 EXCISION OF L FOOT SUBCU/FASCIA, OPEN APPROACH [id number] 12/02/16 EXCISION OF LEFT HIP MUSCLE, OPEN APPROACH [id number] 10/24/16 EXCISION OF LEFT PELVIC BONE, OPEN APPROACH [id number] 12/02/16 EXCISION OF R FOOT SUBCU/FASCIA, OPEN APPROACH [id number] 12/02/16 Assessment/Plan - Problem List Patient Problems: All Active Problems POOR ORAL INTAKE AND SWALLOWING (Acute) SACRAL AND BILATERAL BUTTOCK SKIN ULCERS (Acute) - Assessment Assessment: Current Active Problems Problem Status Onset POOR ORAL INTAKE AND SWALLOWING Acute Patient is awake, non verbal, in no acute distress. Na, Creatinine improving. Colostomy in place. Patient will be weaning today. Dx: Hypernatremia, AKF, Chronic anemia, Sacral decubitus ulcer stage IV, HTN, DM, Dementia - Plan Plan: PEG in place, fedding started. Already seen by [facility], GI, and surgery. NA, and Creatinine improving. Case discussed with family. Will continue to monitor. Nutritional Asmnt/Malnutr-PDOC - Dietary Evaluation Malnutrition Findings (Please click <Entered> for more info): Nutritional Asmnt/Malnutrition Start: 12/02/16 14: 44 Text: Status: Complete Freq: Document 12/02/16 14:44 GSUN (Rec: 12/02/16 15:19 GSUN [id number]) Nutritional Asmnt/Malnutrition Patient General Information Nutritional Screening Consult Diagnosis AKF, sacral decubitus ulcer stage IV, HTN, DM, dementia, chronic anemia Pertinent Medical Hx/Surgical Hx CAD, CVA, dementia, psychosis, muscle atrophy, AKF, DM, decubitus ulcer stage IV Subjective Information 81 year old female from SNF. RD consult for low Elliot and elevated blood glucose. Pt was awake, unable to provide nutrition hx. Family at bedside, spoke to family and HAI Pimentel regarding nutrition plan of care, PEG placement consent obtained. Family has no other questions at this time. 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 Per nursing adm notes , 4-5lb wt loss in 2 weeks. Per family, unaware of UBW, aware of recent wt loss, stated pt stopped eating ~3-4 days ago. Loose skin, moderate to severe muslce fat wasting to chest and clavicles. Current Diet Order/ Nutrition Support NPO Pertinent Medications Dulcolax, D5-0.45ns, Novolog Pertinent Labs 12/01: A1c 9H 12/02: sodium 173H, potassium 5.3H, BUN 169H, creatinie 5.8H , glucose 238H, calcium 10.8H Nutritional Hx/Data Height 1.52 m Height (Calculated Centimeters) 152.4 Current Weight (lbs) 43.545 kg Weight (Calculated Kilograms) 43.5 Weight (Calculated Grams) 92947.9 [place] Body Weight 100 Recent Weight Change Yes Weight Status Approriate GI Symptoms Usual diet at home [facility]: pureed, [facility] Skin Integrity/Comment: Elliot 11. Sacral decubitus ulcer stage IV. Estimated Nutritional Goals Calories/Kcals/Kg IBW 100lb/45.5kg Kcals Calculated 1365-1593kcal (30-35kcal/kg) Protein Calculated 68-73g (1.4-1.6g/kg, ulcer vs renal, ?HD) Fluid: ml Per MD Nutritional Problem 3. Problem Problem Altered nutrition related laboratory values related to Etiology DM aeb Signs/Symptoms: A1c 9H, glucose 238H 2. Problem Problem Increased kcal and prot needs related to Etiology skin integrity, recent weight loss aeb Signs/Symptoms: Sacral decubitus ulcer stage IV, wt loss 4-5lb in 2 weeks per nursing adm notes, moderate to seevre muslce/fat wasting to chest and clavicles 1. Problem Problem Impaired nutrient utilization related to Etiology acute kidney injury aeb Signs/Symptoms: potassium 5.3H, BUN 169H, creatinie 5.8H, calcium 10.8H Intervention/Recommendation Comments 1. Discussed enteral nutrition with family. Family has no further questions at this time . 2. When medically feasible to initiate feeding, recommend Novasource Renal at 30ml/hr x 24hrs, providing 720ml total volume, 1440kcal, 65g protein. Initiate at 10ml/hr for first 24 hrs, monitor for refeeding syndrome and tolerance, increase by 5ml/hr q12hrs until goal. 3. Recommend 1 packet Arginaid daily via tube for wound healing. 4. Monitor weight closely. Hx 4-5lb wt loss in 2 weeks per nursing adm note. Expected Outcomes/Goals Expected Outcomes/Goals 1. Pt to meet at least 75% of estimated nutritinoal eneds on tube feeding with tolerance.
--- NOTE | 2016-12-06 09:30 | General Progress Note ---
Subjective - Review of Systems Service Date: 12/06/16 Subjective: Patient non verbal. Objective - Results Result Diagrams: 12/06/16 04:40 12/06/16 04:40 Recent Labs: Laboratory Last Values WBC 9.4 Th/cmm (4.8-10.8) 12/06/16 04:40 Corrected WBC (auto) 8.8 Th/cmm (4.8-10.8) 12/01/16 18:25 RBC 3.21 Mil/cmm (3.80-5.20) L 12/06/16 04:40 Hgb 9.3 gm/dL (12-16) L 12/06/16 04:40 Hct 28.2 % (41.0-60) L 12/06/16 04:40 MCV 88.0 fl (81-100) 12/06/16 04:40 MCH 28.9 pg (27.0-31.0) 12/06/16 04:40 MCHC Differential 32.9 pg (28.0-36.0) 12/06/16 04:40 RDW 18.0 % (11.5-20.0) 12/06/16 04:40 Plt Count 79 Th/cmm (150-400) L 12/06/16 04:40 MPV 14.1 fl 12/06/16 04:40 Neutrophils % 82.5 % (40.0-80.0) H 12/06/16 04:40 Band Neutrophils % 8 % (0-10) 12/04/16 04:50 Lymphocytes % 11.3 % (20.0-50.0) L 12/06/16 04:40 Monocytes % 4.8 % (2.0-10.0) 12/06/16 04:40 Eosinophils % 1.2 % (0.0-5.0) 12/06/16 04:40 Basophils % 0.2 % (0.0-2.0) 12/06/16 04:40 Neutrophils (Manual) 77 % (40-80) 12/04/16 04:50 Lymphocytes 10 % (20-50) L 12/04/16 04:50 Monocytes 5 % (2-10) 12/04/16 04:50 Eosinophils 3 % (0-5) 12/03/16 05:35 Nucleated RBCs 5.0 % (0-0) H 12/01/16 18:25 Atypical Lymphocytes 1 % 12/01/16 18:25 Platelet Estimate SLIGHT DECREASED (NORMAL) 12/04/16 04:50 Platelet Morphology NORMAL (NORMAL) 12/01/16 18:25 Anisocytosis 2+ 12/03/16 05:35 RBC Morph Micro Appear ABNORMAL (NORMAL) 12/01/16 18:25 Eos Smear Source URINE 12/03/16 06:30 Eos Smear Total Cells NONE SEEN (NONE SEEN) 12/03/16 06:30 PT 11.2 SECONDS (9.5-11.5) 12/03/16 05:35 INR 1.08 (0.5-1.4) 12/03/16 05:35 PTT (Actin FS) 19.6 SECONDS (26.0-38.0) L 12/01/16 18:25 Specimen Source Arterial 12/06/16 08:47 Sample Site Left Radial 12/06/16 08:47 pH 7.35 (7.35-7.45) 12/06/16 08:47 pCO2 19.0 mmHg (35.0-45.0) L* 12/06/16 08:47 pO2 177.0 mmHg (80.0-100.0) H 12/06/16 08:47 HCO3 14.9 mEq/L (20.0-26.0) L 12/06/16 08:47 Base Excess -12.9 mEq/L (-3.0-3.0) L 12/06/16 08:47 O2 Saturation 100.0 % (92.0-100.0) 12/06/16 08:47 Isidro Test Positive 12/06/16 08:47 Vent Rate 8 12/06/16 08:47 Inspired O2 40 12/06/16 08:47 Tidal Volume 450 12/06/16 08:47 PEEP 5 12/06/16 08:47 Pressure (ins/psv/peep) 10 12/06/16 08:47 Critical Value O. Storm 12/06/16 08:47 Sodium 152 mEq/L (136-145) H 12/06/16 04:40 Potassium 3.8 mEq/L (3.5-5.1) 12/06/16 04:40 Chloride 128 mEq/L (98-107) H 12/06/16 04:40 Carbon Dioxide 13.8 mEq/L (21.0-31.0) L 12/06/16 04:40 Anion Gap 14.0 (7.0-16.0) 12/06/16 04:40 BUN 85 mg/dL (7-25) H* 12/06/16 04:40 Creatinine 3.2 mg/dL (0.6-1.2) H 12/06/16 04:40 Est GFR ( Amer) TNP 12/06/16 04:40 Est GFR (Non-Af Amer) TNP 12/06/16 04:40 BUN/Creatinine Ratio 26.6 12/06/16 04:40 Glucose 174 mg/dL (70-105) H 12/06/16 07:10 POC Glucose 120 MG/DL (70 - 105) H 12/06/16 07:07 Hemoglobin A1c % 9.0 % (4.0-6.0) H 12/01/16 18:25 Whole Bld Lactic Acid 2.84 mmol/L (0.60-1.99) H* 12/05/16 12:05 Uric Acid 11.6 mg/dL (2.3-6.6) H 12/03/16 05:35 Calcium 8.8 mg/dL (8.6-10.3) 12/06/16 04:40 Magnesium 2.7 mg/dL (1.9-2.7) 12/03/16 05:35 Total Bilirubin 0.5 mg/dL (0.3-1.0) 12/05/16 10:05 AST 8 U/L (13-39) L 12/05/16 10:05 ALT 3 U/L (7-52) L 12/05/16 10:05 Alkaline Phosphatase 83 U/L (34-104) 12/05/16 10:05 Total Protein 5.2 gm/dL (6.0-8.3) L 12/05/16 10:05 Albumin 2.4 gm/dL (3.7-5.3) L 12/05/16 10:05 Globulin 2.8 gm/dL 12/05/16 10:05 Albumin/Globulin Ratio 0.9 (1.0-1.8) L 12/05/16 10:05 TSH 2.49 uIU/ml (0.34-5.60) 12/03/16 05:35 Urine Source [place] 12/02/16 14:56 Urine Color YELLOW 12/02/16 14:56 Urine Clarity HAZY (CLEAR) 12/02/16 14:56 Urine pH 8.0 (4.6 - 8.0) 12/02/16 14:56 Ur Specific [place] 1.015 (1.005-1.030) 12/02/16 14:56 Urine Protein 100 mg/dL (NEGATIVE) H 12/02/16 14:56 Urine Glucose (UA) 500 mg/dL (NEGATIVE) H 12/02/16 14:56 Urine Ketones NEGATIVE mg/dL (NEGATIVE) 12/02/16 14:56 Urine Blood MODERATE (NEGATIVE) H 12/02/16 14:56 Urine Nitrate POSITIVE (NEGATIVE) H 12/02/16 14:56 Urine Bilirubin NEGATIVE (NEGATIVE) 12/02/16 14:56 Urine Urobilinogen 0.2 E.U./dL (0.2 - 1.0) 12/02/16 14:56 Ur Leukocyte Esterase MODERATE (NEGATIVE) H 12/02/16 14:56 Urine RBC 5-10 /hpf (0-5) H 12/02/16 14:56 Urine WBC 50-100 /hpf (0-5) H 12/02/16 14:56 Ur Epithelial Cells FEW /lpf (FEW) 12/02/16 14:56 Triple Phos Crystals MODERATE /hpf (FEW) 12/02/16 14:56 Urine Bacteria MANY /hpf (NONE SEEN) 12/02/16 14:56 Urine Osmolality 488 mOsmol/kg 12/03/16 06:30 Ur Random Sodium 75 mmol/L 12/03/16 06:30 Urine Creatinine 49.0 mg/dl (28.0-217.0) 12/03/16 06:30 Blood Type O POSITIVE 12/02/16 05:05 Antibody Screen NEGATIVE 12/02/16 05:05 Crossmatch See Detail 12/02/16 05:05 - Physical Exam Vitals and I&O: Vital Signs Temp 96.7 F 12/06/16 06:00 Pulse 74 12/06/16 07:00 Resp 16 12/06/16 07:00 BP 127/64 12/06/16 07:00 Pulse Ox 100 12/06/16 08:00 Intake & Output 1012/06/16 12/06/16 18:59 06:59 18:59 Intake Total 388.333 300 Output Total 650 650 Balance -261.667 -350 Weight (lbs) 53.07 kg 53.07 kg Intake: Intake, IV Amount 338.333 200 KCL 20mEq/100mL Premix 20 88.333 meq In 100 ml @ 50 mls/ hr IV Q2H FOR[facility]LY [facility], [facility]1983 Rx#: [id number] Piperacillin Sodium/ 50 100 Tazobact 2.25 gm In Dextrose 5% 50 ml @ 100 mls/hr IV Q8H [facility], [facility]1983 Rx#: [id number] metroNIDAZOLE 500mg/NS 200 100 100mL 500 mg In Premix Fluid 1 bag @ 100 mls/hr IV Q8H [facility], [facility]1983 Rx#:[id number] Other 50 100 Output: Urine 650 650 Stool 0 Other: # Bowel Movements 0 Active Medications: Current Medications Acetaminophen (Tylenol) 650 mg PO Q6H PRN PRN Reason: Mild Pain or Fever >101 Stop: 01/31/17 11:18 Bisacodyl (Dulcolax 5 Mg Ec Tab) 10 mg PO BID [facility], [facility] Stop: 01/31/17 16:59 Last Admin: 12/06/16 09:07 Dose: Not Given Chlorhexidine Gluconate (Peridex) 15 ml MM 08,1999 [facility]1983 Stop: 02/03/17 19:59 Last Admin: 12/06/16 09:00 Dose: 15 ml Epoetin Esequiel (Epogen) 10,000 units SUBQ TuThSa [facility]1983 Stop: 02/01/17 14:29 Last Admin: 12/03/16 16:01 Dose: 10,000 units Hydromorphone HCl (Dilaudid) 1 mg IVP Q6HR PRN PRN Reason: Pain (Moderate-Severe) Stop: 02/04/17 08:11 Piperacillin Sod/Tazobactam (Sod 2.25 gm/ Dextrose) 50 mls @ 100 mls/hr IV Q8H [facility] Stop: 02/03/17 10:59 Last Infusion: 12/06/16 03:40 Dose: Infused Metronidazole 500 mg/ (Miscellaneous) 100 mls @ 100 mls/hr IV Q8H [facility] Stop: 02/03/17 09:59 Last Infusion: 12/06/16 03:00 Dose: Infused Dextrose (D5w) 1,000 mls @ 100 mls/hr IV .Q10H BRIELLE Stop: 02/04/17 09:29 Insulin Aspart (Novolog Insulin Sliding Scale) 0 units SUBQ ACHS BRIELLE PRN Reason: Protocol Stop: 01/31/17 07:29 Last Admin: 12/06/16 06:43 Dose: Not Given Insulin Detemir (Levemir Insulin) 10 units SUBQ HS BRIELLE PRN Reason: Protocol Stop: 02/03/17 20:59 Last Admin: 12/05/16 21:31 Dose: 10 unit Miscellaneous (Vte Chemical Prophylaxis Screen/ Admission) 1 ea MC PRN PRN PRN Reason: PROTOCOL Stop: 01/31/17 13:38 Miscellaneous (Clinical Monitoring) 1 ea MC DAILY PRN PRN Reason: RENAL Stop: 02/04/17 08:05 Ondansetron HCl (Zofran) 4 mg IV UD PRN PRN Reason: Nausea / Vomiting Stop: 12/06/16 09:44 Pantoprazole Sodium (Protonix) 40 mg IVP DAILY BRIELLE Stop: 02/01/17 08:59 Last Admin: 12/06/16 09:07 Dose: 40 mg Potassium Chloride (Potassium Chloride Elixir) 20 meq GT DAILY ONE Stop: 12/06/16 12:01 Sodium Bicarbonate (Sodium Bicarbonate) 650 mg PO BID BRIELLE PRN Reason: Protocol Stop: 01/31/17 16:59 Last Admin: 12/06/16 09:07 Dose: 650 mg General: Alert, Other (Patient is awake, restless trying to take off tubes.) HEENT: Atraumatic, Mucous membr. moist/pink, Other (Patient is intubated) Neck: Supple, +2 carotid pulse wo bruit Cardiovascular: Regular rate, Normal S1, Normal S2 Lungs: Clear to auscultation, Other Abdomen: Bowel sounds, Soft, Other (PEG in place, Colostomy in place) Extremities: Other (No edema), no Edema Neurological: Other (Non ambulatory), no Sensation intact Skin: Other (Decubit sacral ulcer stage IV), no Significant lesion Psych/Mental Status: Other (Awake, alert, restless, intubated), no Mood NL - Procedures Procedures: Procedures Procedure Code Date BYPASS DESCENDING COLON TO CUTANEOUS, OPEN APPROACH [id number] 12/02/16 COLOSTOMY 04700 12/02/16 CHAGO BONE 20 SQ CM/< [id number] 12/02/16 CHAGO MUSC/FASCIA 20 SQ CM/< 47311 10/24/16 CHAGO SUBQ TISSUE 20 SQ CM/< 70309 12/02/16 EXCISION OF L FOOT SUBCU/FASCIA, OPEN APPROACH [id number] 12/02/16 EXCISION OF LEFT HIP MUSCLE, OPEN APPROACH [id number] 10/24/16 EXCISION OF LEFT PELVIC BONE, OPEN APPROACH [id number] 12/02/16 EXCISION OF R FOOT SUBCU/FASCIA, OPEN APPROACH [id number] 12/02/16 Assessment/Plan - Problem List Patient Problems: All Active Problems POOR ORAL INTAKE AND SWALLOWING (Acute) SACRAL AND BILATERAL BUTTOCK SKIN ULCERS (Acute) - Assessment Assessment: Current Active Problems Problem Status Onset POOR ORAL INTAKE AND SWALLOWING Acute Patient is awake, non verbal, in no acute distress. Na, Creatinine improving. Colostomy in place. Patient will be weaning today. Dx: Hypernatremia, AKF, Chronic anemia, Sacral decubitus ulcer stage IV, HTN, DM, Dementia - Plan Plan: PEG in place, fedding started. Already seen by [facility], GI, and surgery. NA, and Creatinine improving. Case discussed with family. Will continue to monitor. Nutritional Asmnt/Malnutr-PDOC - Dietary Evaluation Malnutrition Findings (Please click <Entered> for more info): Nutritional Asmnt/Malnutrition Start: 12/02/16 14: 44 Text: Status: Complete Freq: Document 12/02/16 14:44 GSUN (Rec: 12/02/16 15:19 GSUN [id number]) Nutritional Asmnt/Malnutrition Patient General Information Nutritional Screening Consult Diagnosis AKF, sacral decubitus ulcer stage IV, HTN, DM, dementia, chronic anemia Pertinent Medical Hx/Surgical Hx CAD, CVA, dementia, psychosis, muscle atrophy, AKF, DM, decubitus ulcer stage IV Subjective Information 81 year old female from SNF. RD consult for low Elliot and elevated blood glucose. Pt was awake, unable to provide nutrition hx. Family at bedside, spoke to family and HAI Pimentel regarding nutrition plan of care, PEG placement consent obtained. Family has no other questions at this time. 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 Per nursing adm notes , 4-5lb wt loss in 2 weeks. Per family, unaware of UBW, aware of recent wt loss, stated pt stopped eating ~3-4 days ago. Loose skin, moderate to severe muslce fat wasting to chest and clavicles. Current Diet Order/ Nutrition Support NPO Pertinent Medications Dulcolax, D5-0.45ns, Novolog Pertinent Labs 12/01: A1c 9H 12/02: sodium 173H, potassium 5.3H, BUN 169H, creatinie 5.8H , glucose 238H, calcium 10.8H Nutritional Hx/Data Height 1.52 m Height (Calculated Centimeters) 152.4 Current Weight (lbs) 43.545 kg Weight (Calculated Kilograms) 43.5 Weight (Calculated Grams) 13105.9 Freedom Body Weight 100 Recent Weight Change Yes Weight Status Approriate GI Symptoms Usual diet at home [facility] Skin Integrity/Comment: Elliot 11. Sacral decubitus ulcer stage IV. Estimated Nutritional Goals Calories/Kcals/Kg IBW 100lb/45.5kg Kcals Calculated 1365-1593kcal (30-35kcal/kg) Protein Calculated 68-73g (1.4-1.6g/kg, ulcer vs renal, ?HD) Fluid: ml Per MD Nutritional Problem 3. Problem Problem Altered nutrition related laboratory values related to Etiology DM aeb Signs/Symptoms: A1c 9H, glucose 238H 2. Problem Problem Increased kcal and prot needs related to Etiology skin integrity, recent weight loss aeb Signs/Symptoms: Sacral decubitus ulcer stage IV, wt loss 4-5lb in 2 weeks per nursing adm notes, moderate to seevre muslce/fat wasting to chest and clavicles 1. Problem Problem Impaired nutrient utilization related to Etiology acute kidney injury aeb Signs/Symptoms: potassium 5.3H, BUN 169H, creatinie 5.8H, calcium 10.8H Intervention/Recommendation Comments 1. Discussed enteral nutrition with family. Family has no further questions at this time . 2. When medically feasible to initiate feeding, recommend Novasource Renal at 30ml/hr x 24hrs, providing 720ml total volume, 1440kcal, 65g protein. Initiate at 10ml/hr for first 24 hrs, monitor for refeeding syndrome and tolerance, increase by 5ml/hr q12hrs until goal. 3. Recommend 1 packet Arginaid daily via tube for wound healing. 4. Monitor weight closely. Hx 4-5lb wt loss in 2 weeks per nursing adm note. Expected Outcomes/Goals Expected Outcomes/Goals 1. Pt to meet at least 75% of estimated nutritinoal eneds on tube feeding with tolerance.
[2016-12-06] MEDS ORDERED: Sodium Bicarbonate 8.4% 50mEq PFS IVP ONE (09:44)
--- NOTE | 2016-12-06 09:54 | Diagnostic Imaging Report ---
Portable chest x-ray HISTORY: Shortness of breath Compared with the prior exam of December 05, 2016, the heart size remains normal. There is an ill-defined density in the right perihilar region. This may represent superimposition of ribs and lung markings. Follow-up radiograph recommended. An endotracheal tube tip is approximately 1.0 cm above the priscila. IMPRESSION: 1. Density right perihilar region. This may be associated with superimposition of interstitial markings and overlying ribs. A follow-up nonrotated radiograph is recommended.
[2016-12-06] MEDS: Dextrose 5% 1,000 ML IV SCH ×2 (09:59→23:29)
[2016-12-06] MEDS ORDERED: Albuterol/Ipratropium Neb 3 ML AERS HHN PRN (10:03)
[2016-12-06] MEDS: HYDROmorphone 1 mg/mL 1mL Syr IVP PRN ×2 (10:14→18:33)
--- NOTE | 2016-12-06 10:19 | General Progress Note ---
Subjective - Review of Systems Service Date: 12/06/16 Events since last encounter: labs ok still intubated start GT feedings Objective - Results Result Diagrams: 12/06/16 04:40 12/06/16 04:40 Recent Labs: Laboratory Last Values WBC 9.4 Th/cmm (4.8-10.8) 12/06/16 04:40 Corrected WBC (auto) 8.8 Th/cmm (4.8-10.8) 12/01/16 18:25 RBC 3.21 Mil/cmm (3.80-5.20) L 12/06/16 04:40 Hgb 9.3 gm/dL (12-16) L 12/06/16 04:40 Hct 28.2 % (41.0-60) L 12/06/16 04:40 MCV 88.0 fl (81-100) 12/06/16 04:40 MCH 28.9 pg (27.0-31.0) 12/06/16 04:40 MCHC Differential 32.9 pg (28.0-36.0) 12/06/16 04:40 RDW 18.0 % (11.5-20.0) 12/06/16 04:40 Plt Count 79 Th/cmm (150-400) L 12/06/16 04:40 MPV 14.1 fl 12/06/16 04:40 Neutrophils % 82.5 % (40.0-80.0) H 12/06/16 04:40 Band Neutrophils % 8 % (0-10) 12/04/16 04:50 Lymphocytes % 11.3 % (20.0-50.0) L 12/06/16 04:40 Monocytes % 4.8 % (2.0-10.0) 12/06/16 04:40 Eosinophils % 1.2 % (0.0-5.0) 12/06/16 04:40 Basophils % 0.2 % (0.0-2.0) 12/06/16 04:40 Neutrophils (Manual) 77 % (40-80) 12/04/16 04:50 Lymphocytes 10 % (20-50) L 12/04/16 04:50 Monocytes 5 % (2-10) 12/04/16 04:50 Eosinophils 3 % (0-5) 12/03/16 05:35 Nucleated RBCs 5.0 % (0-0) H 12/01/16 18:25 Atypical Lymphocytes 1 % 12/01/16 18:25 Platelet Estimate SLIGHT DECREASED (NORMAL) 12/04/16 04:50 Platelet Morphology NORMAL (NORMAL) 12/01/16 18:25 Anisocytosis 2+ 12/03/16 05:35 RBC Morph Micro Appear ABNORMAL (NORMAL) 12/01/16 18:25 Eos Smear Source URINE 12/03/16 06:30 Eos Smear Total Cells NONE SEEN (NONE SEEN) 12/03/16 06:30 PT 11.2 SECONDS (9.5-11.5) 12/03/16 05:35 INR 1.08 (0.5-1.4) 12/03/16 05:35 PTT (Actin FS) 19.6 SECONDS (26.0-38.0) L 12/01/16 18:25 Specimen Source Arterial 12/06/16 08:47 Sample Site Left Radial 12/06/16 08:47 pH 7.35 (7.35-7.45) 12/06/16 08:47 pCO2 19.0 mmHg (35.0-45.0) L* 12/06/16 08:47 pO2 177.0 mmHg (80.0-100.0) H 12/06/16 08:47 HCO3 14.9 mEq/L (20.0-26.0) L 12/06/16 08:47 Base Excess -12.9 mEq/L (-3.0-3.0) L 12/06/16 08:47 O2 Saturation 100.0 % (92.0-100.0) 12/06/16 08:47 Isidro Test Positive 12/06/16 08:47 Vent Rate 8 12/06/16 08:47 Inspired O2 40 12/06/16 08:47 Tidal Volume 450 12/06/16 08:47 PEEP 5 12/06/16 08:47 Pressure (ins/psv/peep) 10 12/06/16 08:47 Critical Value O. Storm 12/06/16 08:47 Sodium 152 mEq/L (136-145) H 12/06/16 04:40 Potassium 3.8 mEq/L (3.5-5.1) 12/06/16 04:40 Chloride 128 mEq/L (98-107) H 12/06/16 04:40 Carbon Dioxide 13.8 mEq/L (21.0-31.0) L 12/06/16 04:40 Anion Gap 14.0 (7.0-16.0) 12/06/16 04:40 BUN 85 mg/dL (7-25) H* 12/06/16 04:40 Creatinine 3.2 mg/dL (0.6-1.2) H 12/06/16 04:40 Est GFR ( Amer) TNP 12/06/16 04:40 Est GFR (Non-Af Amer) TNP 12/06/16 04:40 BUN/Creatinine Ratio 26.6 12/06/16 04:40 Glucose 174 mg/dL (70-105) H 12/06/16 07:10 POC Glucose 120 MG/DL (70 - 105) H 12/06/16 07:07 Hemoglobin A1c % 9.0 % (4.0-6.0) H 12/01/16 18:25 Whole Bld Lactic Acid 2.84 mmol/L (0.60-1.99) H* 12/05/16 12:05 Uric Acid 11.6 mg/dL (2.3-6.6) H 12/03/16 05:35 Calcium 8.8 mg/dL (8.6-10.3) 12/06/16 04:40 Magnesium 2.7 mg/dL (1.9-2.7) 12/03/16 05:35 Total Bilirubin 0.5 mg/dL (0.3-1.0) 12/05/16 10:05 AST 8 U/L (13-39) L 12/05/16 10:05 ALT 3 U/L (7-52) L 12/05/16 10:05 Alkaline Phosphatase 83 U/L (34-104) 12/05/16 10:05 Total Protein 5.2 gm/dL (6.0-8.3) L 12/05/16 10:05 Albumin 2.4 gm/dL (3.7-5.3) L 12/05/16 10:05 Globulin 2.8 gm/dL 12/05/16 10:05 Albumin/Globulin Ratio 0.9 (1.0-1.8) L 12/05/16 10:05 TSH 2.49 uIU/ml (0.34-5.60) 12/03/16 05:35 Urine Source SOOT PORT 12/02/16 14:56 Urine Color YELLOW 12/02/16 14:56 Urine Clarity HAZY (CLEAR) 12/02/16 14:56 Urine pH 8.0 (4.6 - 8.0) 12/02/16 14:56 Ur Specific [place] 1.015 (1.005-1.030) 12/02/16 14:56 Urine Protein 100 mg/dL (NEGATIVE) H 12/02/16 14:56 Urine Glucose (UA) 500 mg/dL (NEGATIVE) H 12/02/16 14:56 Urine Ketones NEGATIVE mg/dL (NEGATIVE) 12/02/16 14:56 Urine Blood MODERATE (NEGATIVE) H 12/02/16 14:56 Urine Nitrate POSITIVE (NEGATIVE) H 12/02/16 14:56 Urine Bilirubin NEGATIVE (NEGATIVE) 12/02/16 14:56 Urine Urobilinogen 0.2 E.U./dL (0.2 - 1.0) 12/02/16 14:56 Ur Leukocyte Esterase MODERATE (NEGATIVE) H 12/02/16 14:56 Urine RBC 5-10 /hpf (0-5) H 12/02/16 14:56 Urine WBC 50-100 /hpf (0-5) H 12/02/16 14:56 Ur Epithelial Cells FEW /lpf (FEW) 12/02/16 14:56 Triple Phos Crystals MODERATE /hpf (FEW) 12/02/16 14:56 Urine Bacteria MANY /hpf (NONE SEEN) 12/02/16 14:56 Urine Osmolality 488 mOsmol/kg 12/03/16 06:30 Ur Random Sodium 75 mmol/L 12/03/16 06:30 Urine Creatinine 49.0 mg/dl (28.0-217.0) 12/03/16 06:30 Blood Type O POSITIVE 12/02/16 05:05 Antibody Screen NEGATIVE 12/02/16 05:05 Crossmatch See Detail 12/02/16 05:05 - Physical Exam Vitals and I&O: Vital Signs Temp 96.7 F 12/06/16 06:00 Pulse 84 12/06/16 09:35 Resp 16 12/06/16 07:00 BP 127/64 12/06/16 07:00 Pulse Ox 100 12/06/16 09:35 Intake & Output 12/05/16 12/06/16 12/06/16 18:59 06:59 18:59 Intake Total 388.333 300 Output Total 650 650 Balance -261.667 -350 Weight (lbs) 53.07 kg 53.07 kg Intake: Intake, IV Amount 338.333 200 KCL 20mEq/100mL Premix 20 88.333 meq In 100 ml @ 50 mls/ hr IV Q2H [facility] Rx#: [id number] Piperacillin Sodium/ 50 100 Tazobact 2.25 gm In Dextrose 5% 50 ml @ 100 mls/hr IV Q8H [facility] Rx#: [id number] metroNIDAZOLE 500mg/NS 200 100 100mL 500 mg In Premix Fluid 1 bag @ 100 mls/hr IV Q8H [facility] Rx#:[id number] Other 50 100 Output: Urine 650 650 Stool 0 Other: # Bowel Movements 0 Active Medications: Current Medications Acetaminophen (Tylenol) 650 mg PO Q6H PRN PRN Reason: Mild Pain or Fever >101 Stop: 01/31/17 11:18 Albuterol/Ipratropium (Duoneb Neb) 3 ml HHN Q6HRT [facility] Stop: 02/04/17 12:59 Albuterol/Ipratropium (Duoneb Neb) 3 ml HHN Q2HRT PRN PRN Reason: Wheezing Stop: 02/04/17 10:02 Bisacodyl (Dulcolax 5 Mg Ec Tab) 10 mg PO BID [facility] Stop: 01/31/17 16:59 Last Admin: 12/06/16 09:07 Dose: Not Given Chlorhexidine Gluconate (Peridex) 15 ml MM 0800,1999 [facility] Stop: 02/03/17 19:59 Last Admin: 12/06/16 09:00 Dose: 15 ml Epoetin Esequiel (Epogen) 10,000 units SUBQ TuThSa [facility] Stop: 02/01/17 14:29 Last Admin: 12/03/16 16:01 Dose: 10,000 units Hydromorphone HCl (Dilaudid) 1 mg IVP Q6HR PRN PRN Reason: Pain (Moderate-Severe) Stop: 02/04/17 08:11 Last Admin: 12/06/16 10:14 Dose: 1 mg Piperacillin Sod/Tazobactam (Sod 2.25 gm/ Dextrose) 50 mls @ 100 mls/hr IV Q8H [facility] Stop: 02/03/17 10:59 Last Infusion: 12/06/16 03:40 Dose: Infused Metronidazole 500 mg/ (Miscellaneous) 100 mls @ 100 mls/hr IV Q8H [facility] Stop: 02/03/17 09:59 Last Admin: 12/06/16 09:59 Dose: 100 mls/hr Dextrose (D5w) 1,000 mls @ 100 mls/hr IV .Q10H [facility] Stop: 02/04/17 09:29 Last Admin: 12/06/16 09:59 Dose: 100 mls/hr Insulin Aspart (Novolog Insulin Sliding Scale) 0 units SUBQ ACHS [facility] PRN Reason: Protocol Stop: 01/31/17 07:29 Last Admin: 12/06/16 06:43 Dose: Not Given Insulin Detemir (Levemir Insulin) 10 units SUBQ HS [facility] PRN Reason: Protocol Stop: 02/03/17 20:59 Last Admin: 12/05/16 21:31 Dose: 10 unit Miscellaneous (Vte Chemical Prophylaxis Screen/ Admission) 1 ea PRN PRN PRN Reason: PROTOCOL Stop: 01/31/17 13:38 Miscellaneous (Clinical Monitoring) 1 ea DAILY PRN PRN Reason: RENAL Stop: 02/04/17 08:05 Pantoprazole Sodium (Protonix) 40 mg IVP DAILY [facility] Stop: 02/01/17 08:59 Last Admin: 12/06/16 09:07 Dose: 40 mg Potassium Chloride (Potassium Chloride Elixir) 20 meq GT DAILY ONE Stop: 12/06/16 12:01 Sodium Bicarbonate (Sodium Bicarbonate) 650 mg PO BID [facility] PRN Reason: Protocol Stop: 01/31/17 16:59 Last Admin: 12/06/16 09:07 Dose: 650 mg General: Alert, Other (Patient is awake, restless trying to take off tubes.) HEENT: Atraumatic, Mucous membr. moist/pink, Other (Patient is intubated) Neck: Supple, +2 carotid pulse wo bruit Cardiovascular: Regular rate, Normal S1, Normal S2 Lungs: Clear to auscultation, Other Abdomen: Bowel sounds, Soft, Other (PEG in place, Colostomy in place) Extremities: Other (No edema), no Edema Neurological: Other (Non ambulatory), no Sensation intact Skin: Other (Decubit sacral ulcer stage IV), no Significant lesion Psych/Mental Status: Other (Awake, alert, restless, intubated), no Mood NL - Procedures Procedures: Procedures Procedure Code Date BYPASS DESCENDING COLON TO CUTANEOUS, OPEN APPROACH [id number] 12/02/16 COLOSTOMY 73562 12/02/16 CHAGO BONE 20 SQ CM/< 18026 12/02/16 CHAGO MUSC/FASCIA 20 SQ CM/< 38203 10/24/16 CHAGO SUBQ TISSUE 20 SQ CM/< 06949 12/02/16 EXCISION OF L FOOT SUBCU/FASCIA, OPEN APPROACH [id number] 12/02/16 EXCISION OF LEFT HIP MUSCLE, OPEN APPROACH [id number] 10/24/16 EXCISION OF LEFT PELVIC BONE, OPEN APPROACH [id number] 12/02/16 EXCISION OF R FOOT SUBCU/FASCIA, OPEN APPROACH [id number] 12/02/16 Assessment/Plan - Problem List Patient Problems: All Active Problems POOR ORAL INTAKE AND SWALLOWING (Acute) SACRAL AND BILATERAL BUTTOCK SKIN ULCERS (Acute) Nutritional Asmnt/Malnutr-PDOC - Dietary Evaluation Malnutrition Findings (Please click <Entered> for more info): Nutritional Asmnt/Malnutrition Start: 12/02/16 14: 44 Text: Status: Complete Freq: Document 12/02/16 14:44 GSUN (Rec: 12/02/16 15:19 GSUN [id number]) Nutritional Asmnt/Malnutrition Patient General Information Nutritional Screening Consult Diagnosis AKF, sacral decubitus ulcer stage IV, HTN, DM, dementia, chronic anemia Pertinent Medical Hx/Surgical Hx CAD, CVA, dementia, psychosis, muscle atrophy, AKF, DM, decubitus ulcer stage IV Subjective Information 81 year old female from SNF. RD consult for low Elliot and elevated blood glucose. Pt was awake, unable to provide nutrition hx. Family at bedside, spoke to family and HAI Pimentel regarding nutrition plan of care, PEG placement consent obtained. Family has no other questions at this time. 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 Per nursing adm notes , 4-5lb wt loss in 2 weeks. Per family, unaware of UBW, aware of recent wt loss, stated pt stopped eating ~3-4 days ago. Loose skin, moderate to severe muslce fat wasting to chest and clavicles. Current Diet Order/ Nutrition Support NPO Pertinent Medications Dulcolax, D5-0.45ns, Novolog Pertinent Labs 12/01: A1c 9H 12/02: sodium 173H, potassium 5.3H, BUN 169H, creatinie 5.8H , glucose 238H, calcium 10.8H Nutritional Hx/Data Height 1.52 m Height (Calculated Centimeters) 152.4 Current Weight (lbs) 43.545 kg Weight (Calculated Kilograms) 43.5 Weight (Calculated Grams) 66803.9 Dobson Body Weight 100 Recent Weight Change Yes Weight Status Approriate GI Symptoms Usual diet at home [facility]: [facility] Skin Integrity/Comment: Elliot 11. Sacral decubitus ulcer stage IV. Estimated Nutritional Goals Calories/Kcals/Kg IBW 100lb/45.5kg Kcals Calculated 1365-1593kcal (30-35kcal/kg) Protein Calculated 68-73g (1.4-1.6g/kg, ulcer vs renal, ?HD) Fluid: ml Per MD Nutritional Problem 3. Problem Problem Altered nutrition related laboratory values related to Etiology DM aeb Signs/Symptoms: A1c 9H, glucose 238H 2. Problem Problem Increased kcal and prot needs related to Etiology skin integrity, recent weight loss aeb Signs/Symptoms: Sacral decubitus ulcer stage IV, wt loss 4-5lb in 2 weeks per nursing adm notes, moderate to seevre muslce/fat wasting to chest and clavicles 1. Problem Problem Impaired nutrient utilization related to Etiology acute kidney injury aeb Signs/Symptoms: potassium 5.3H, BUN 169H, creatinie 5.8H, calcium 10.8H Intervention/Recommendation Comments 1. Discussed enteral nutrition with family. Family has no further questions at this time . 2. When medically feasible to initiate feeding, recommend Novasource Renal at 30ml/hr x 24hrs, providing 720ml total volume, 1440kcal, 65g protein. Initiate at 10ml/hr for first 24 hrs, monitor for refeeding syndrome and tolerance, increase by 5ml/hr q12hrs until goal. 3. Recommend 1 packet Arginaid daily via tube for wound healing. 4. Monitor weight closely. Hx 4-5lb wt loss in 2 weeks per nursing adm note. Expected Outcomes/Goals Expected Outcomes/Goals 1. Pt to meet at least 75% of estimated nutritinoal eneds on tube feeding with tolerance.
--- NOTE | 2016-12-06 10:19 | General Progress Note ---
Subjective - Review of Systems Service Date: 12/06/16 Events since last encounter: labs ok still intubated start GT feedings Objective - Results Result Diagrams: 12/06/16 04:40 12/06/16 04:40 Recent Labs: Laboratory Last Values WBC 9.4 Th/cmm (4.8-10.8) 12/06/16 04:40 Corrected WBC (auto) 8.8 Th/cmm (4.8-10.8) 12/01/16 18:25 RBC 3.21 Mil/cmm (3.80-5.20) L 12/06/16 04:40 Hgb 9.3 gm/dL (12-16) L 12/06/16 04:40 Hct 28.2 % (41.0-60) L 12/06/16 04:40 MCV 88.0 fl (81-100) 12/06/16 04:40 MCH 28.9 pg (27.0-31.0) 12/06/16 04:40 MCHC Differential 32.9 pg (28.0-36.0) 12/06/16 04:40 RDW 18.0 % (11.5-20.0) 12/06/16 04:40 Plt Count 79 Th/cmm (150-400) L 12/06/16 04:40 MPV 14.1 fl 12/06/16 04:40 Neutrophils % 82.5 % (40.0-80.0) H 12/06/16 04:40 Band Neutrophils % 8 % (0-10) 12/04/16 04:50 Lymphocytes % 11.3 % (20.0-50.0) L 12/06/16 04:40 Monocytes % 4.8 % (2.0-10.0) 12/06/16 04:40 Eosinophils % 1.2 % (0.0-5.0) 12/06/16 04:40 Basophils % 0.2 % (0.0-2.0) 12/06/16 04:40 Neutrophils (Manual) 77 % (40-80) 12/04/16 04:50 Lymphocytes 10 % (20-50) L 12/04/16 04:50 Monocytes 5 % (2-10) 12/04/16 04:50 Eosinophils 3 % (0-5) 12/03/16 05:35 Nucleated RBCs 5.0 % (0-0) H 12/01/16 18:25 Atypical Lymphocytes 1 % 12/01/16 18:25 Platelet Estimate SLIGHT DECREASED (NORMAL) 12/04/16 04:50 Platelet Morphology NORMAL (NORMAL) 12/01/16 18:25 Anisocytosis 2+ 12/03/16 05:35 RBC Morph Micro Appear ABNORMAL (NORMAL) 12/01/16 18:25 Eos Smear Source URINE 12/03/16 06:30 Eos Smear Total Cells NONE SEEN (NONE SEEN) 12/03/16 06:30 PT 11.2 SECONDS (9.5-11.5) 12/03/16 05:35 INR 1.08 (0.5-1.4) 12/03/16 05:35 PTT (Actin FS) 19.6 SECONDS (26.0-38.0) L 12/01/16 18:25 Specimen Source Arterial 12/06/16 08:47 Sample Site Left Radial 12/06/16 08:47 pH 7.35 (7.35-7.45) 12/06/16 08:47 pCO2 19.0 mmHg (35.0-45.0) L* 12/06/16 08:47 pO2 177.0 mmHg (80.0-100.0) H 12/06/16 08:47 HCO3 14.9 mEq/L (20.0-26.0) L 12/06/16 08:47 Base Excess -12.9 mEq/L (-3.0-3.0) L 12/06/16 08:47 O2 Saturation 100.0 % (92.0-100.0) 12/06/16 08:47 Isidro Test Positive 12/06/16 08:47 Vent Rate 8 12/06/16 08:47 Inspired O2 40 12/06/16 08:47 Tidal Volume 450 12/06/16 08:47 PEEP 5 12/06/16 08:47 Pressure (ins/psv/peep) 10 12/06/16 08:47 Critical Value O. Storm 12/06/16 08:47 Sodium 152 mEq/L (136-145) H 12/06/16 04:40 Potassium 3.8 mEq/L (3.5-5.1) 12/06/16 04:40 Chloride 128 mEq/L (98-107) H 12/06/16 04:40 Carbon Dioxide 13.8 mEq/L (21.0-31.0) L 12/06/16 04:40 Anion Gap 14.0 (7.0-16.0) 12/06/16 04:40 BUN 85 mg/dL (7-25) H* 12/06/16 04:40 Creatinine 3.2 mg/dL (0.6-1.2) H 12/06/16 04:40 Est GFR ( Amer) TNP 12/06/16 04:40 Est GFR (Non-Af Amer) TNP 12/06/16 04:40 BUN/Creatinine Ratio 26.6 12/06/16 04:40 Glucose 174 mg/dL (70-105) H 12/06/16 07:10 POC Glucose 120 MG/DL (70 - 105) H 12/06/16 07:07 Hemoglobin A1c % 9.0 % (4.0-6.0) H 12/01/16 18:25 Whole Bld Lactic Acid 2.84 mmol/L (0.60-1.99) H* 12/05/16 12:05 Uric Acid 11.6 mg/dL (2.3-6.6) H 12/03/16 05:35 Calcium 8.8 mg/dL (8.6-10.3) 12/06/16 04:40 Magnesium 2.7 mg/dL (1.9-2.7) 12/03/16 05:35 Total Bilirubin 0.5 mg/dL (0.3-1.0) 12/05/16 10:05 AST 8 U/L (13-39) L 12/05/16 10:05 ALT 3 U/L (7-52) L 12/05/16 10:05 Alkaline Phosphatase 83 U/L (34-104) 12/05/16 10:05 Total Protein 5.2 gm/dL (6.0-8.3) L 12/05/16 10:05 Albumin 2.4 gm/dL (3.7-5.3) L 12/05/16 10:05 Globulin 2.8 gm/dL 12/05/16 10:05 Albumin/Globulin Ratio 0.9 (1.0-1.8) L 12/05/16 10:05 TSH 2.49 uIU/ml (0.34-5.60) 12/03/16 05:35 Urine Source SOTO PORT 12/02/16 14:56 Urine Color YELLOW 12/02/16 14:56 Urine Clarity HAZY (CLEAR) 12/02/16 14:56 Urine pH 8.0 (4.6 - 8.0) 12/02/16 14:56 Ur Specific [place] 1.015 (1.005-1.030) 12/02/16 14:56 Urine Protein 100 mg/dL (NEGATIVE) H 12/02/16 14:56 Urine Glucose (UA) 500 mg/dL (NEGATIVE) H 12/02/16 14:56 Urine Ketones NEGATIVE mg/dL (NEGATIVE) 12/02/16 14:56 Urine Blood MODERATE (NEGATIVE) H 12/02/16 14:56 Urine Nitrate POSITIVE (NEGATIVE) H 12/02/16 14:56 Urine Bilirubin NEGATIVE (NEGATIVE) 12/02/16 14:56 Urine Urobilinogen 0.2 E.U./dL (0.2 - 1.0) 12/02/16 14:56 Ur Leukocyte Esterase MODERATE (NEGATIVE) H 12/02/16 14:56 Urine RBC 5-10 /hpf (0-5) H 12/02/16 14:56 Urine WBC 50-100 /hpf (0-5) H 12/02/16 14:56 Ur Epithelial Cells FEW /lpf (FEW) 12/02/16 14:56 Triple Phos Crystals MODERATE /hpf (FEW) 12/02/16 14:56 Urine Bacteria MANY /hpf (NONE SEEN) 12/02/16 14:56 Urine Osmolality 488 mOsmol/kg 12/03/16 06:30 Ur Random Sodium 75 mmol/L 12/03/16 06:30 Urine Creatinine 49.0 mg/dl (28.0-217.0) 12/03/16 06:30 Blood Type O POSITIVE 12/02/16 05:05 Antibody Screen NEGATIVE 12/02/16 05:05 Crossmatch See Detail 12/02/16 05:05 - Physical Exam Vitals and I&O: Vital Signs Temp 96.7 F 12/06/16 06:00 Pulse 84 12/06/16 09:35 Resp 16 12/06/16 07:00 BP 127/64 12/06/16 07:00 Pulse Ox 100 12/06/16 09:35 Intake & Output 12/05/16 12/06/16 12/06/16 18:59 06:59 18:59 Intake Total 388.333 300 Output Total 650 650 Balance -261.667 -350 Weight (lbs) 53.07 kg 53.07 kg Intake: Intake, IV Amount 338.333 200 KCL 20mEq/100mL Premix 20 88.333 meq In 100 ml @ 50 mls/ hr IV Q2H [facility] Rx#: [id number] Piperacillin Sodium/ 50 100 Tazobact 2.25 gm In Dextrose 5% 50 ml @ 100 mls/hr IV Q8H [facility] Rx#: [id number] metroNIDAZOLE 500mg/NS 200 100 100mL 500 mg In Premix Fluid 1 bag @ 100 mls/hr IV Q8H [facility] Rx#:[id number] Other 50 100 Output: Urine 650 650 Stool 0 Other: # Bowel Movements 0 Active Medications: Current Medications Acetaminophen (Tylenol) 650 mg PO Q6H PRN PRN Reason: Mild Pain or Fever >101 Stop: 01/31/17 11:18 Albuterol/Ipratropium (Duoneb Neb) 3 ml HHN Q6HRT [facility] Stop: 02/04/17 12:59 Albuterol/Ipratropium (Duoneb Neb) 3 ml HHN Q2HRT PRN PRN Reason: Wheezing Stop: 02/04/17 10:02 Bisacodyl (Dulcolax 5 Mg Ec Tab) 10 mg PO BID [facility] Stop: 01/31/17 16:59 Last Admin: 12/06/16 09:07 Dose: Not Given Chlorhexidine Gluconate (Peridex) 15 ml MM 0800,1999 [facility] Stop: 02/03/17 19:59 Last Admin: 12/06/16 09:00 Dose: 15 ml Epoetin Esequiel (Epogen) 10,000 units SUBQ TuThSa [facility] Stop: 02/01/17 14:29 Last Admin: 12/03/16 16:01 Dose: 10,000 units Hydromorphone HCl (Dilaudid) 1 mg IVP Q6HR PRN PRN Reason: Pain (Moderate-Severe) Stop: 02/04/17 08:11 Last Admin: 12/06/16 10:14 Dose: 1 mg Piperacillin Sod/Tazobactam (Sod 2.25 gm/ Dextrose) 50 mls @ 100 mls/hr IV Q8H [facility] Stop: 02/03/17 10:59 Last Infusion: 12/06/16 03:40 Dose: Infused Metronidazole 500 mg/ (Miscellaneous) 100 mls @ 100 mls/hr IV Q8H [facility] Stop: 02/03/17 09:59 Last Admin: 12/06/16 09:59 Dose: 100 mls/hr Dextrose (D5w) 1,000 mls @ 100 mls/hr IV .Q10H [facility] Stop: 02/04/17 09:29 Last Admin: 12/06/16 09:59 Dose: 100 mls/hr Insulin Aspart (Novolog Insulin Sliding Scale) 0 units SUBQ ACHS [facility] PRN Reason: Protocol Stop: 01/31/17 07:29 Last Admin: 12/06/16 06:43 Dose: Not Given Insulin Detemir (Levemir Insulin) 10 units SUBQ HS [facility] PRN Reason: Protocol Stop: 02/03/17 20:59 Last Admin: 12/05/16 21:31 Dose: 10 unit Miscellaneous (Vte Chemical Prophylaxis Screen/ Admission) 1 ea PRN PRN PRN Reason: PROTOCOL Stop: 01/31/17 13:38 Miscellaneous (Clinical Monitoring) 1 ea DAILY PRN PRN Reason: RENAL Stop: 02/04/17 08:05 Pantoprazole Sodium (Protonix) 40 mg IVP DAILY [facility] Stop: 02/01/17 08:59 Last Admin: 12/06/16 09:07 Dose: 40 mg Potassium Chloride (Potassium Chloride Elixir) 20 meq GT DAILY ONE Stop: 12/06/16 12:01 Sodium Bicarbonate (Sodium Bicarbonate) 650 mg PO BID [facility] PRN Reason: Protocol Stop: 01/31/17 16:59 Last Admin: 12/06/16 09:07 Dose: 650 mg General: Alert, Other (Patient is awake, restless trying to take off tubes.) HEENT: Atraumatic, Mucous membr. moist/pink, Other (Patient is intubated) Neck: Supple, +2 carotid pulse wo bruit Cardiovascular: Regular rate, Normal S1, Normal S2 Lungs: Clear to auscultation, Other Abdomen: Bowel sounds, Soft, Other (PEG in place, Colostomy in place) Extremities: Other (No edema), no Edema Neurological: Other (Non ambulatory), no Sensation intact Skin: Other (Decubit sacral ulcer stage IV), no Significant lesion Psych/Mental Status: Other (Awake, alert, restless, intubated), no Mood NL - Procedures Procedures: Procedures Procedure Code Date BYPASS DESCENDING COLON TO CUTANEOUS, OPEN APPROACH [id number] 12/02/16 COLOSTOMY 13028 12/02/16 CHAGO BONE 20 SQ CM/< 14589 12/02/16 CHAGO MUSC/FASCIA 20 SQ CM/< [id number] 10/24/16 CHAGO SUBQ TISSUE 20 SQ CM/< [id number] 12/02/16 EXCISION OF L FOOT SUBCU/FASCIA, OPEN APPROACH [id number] 12/02/16 EXCISION OF LEFT HIP MUSCLE, OPEN APPROACH [id number] 10/24/16 EXCISION OF LEFT PELVIC BONE, OPEN APPROACH [id number] 12/02/16 EXCISION OF R FOOT SUBCU/FASCIA, OPEN APPROACH [id number] 12/02/16 Assessment/Plan - Problem List Patient Problems: All Active Problems POOR ORAL INTAKE AND SWALLOWING (Acute) SACRAL AND BILATERAL BUTTOCK SKIN ULCERS (Acute) Nutritional Asmnt/Malnutr-PDOC - Dietary Evaluation Malnutrition Findings (Please click <Entered> for more info): Nutritional Asmnt/Malnutrition Start: 12/02/16 14: 44 Text: Status: Complete Freq: Document 12/02/16 14:44 GSUN (Rec: 12/02/16 15:19 GSUN [id number]) Nutritional Asmnt/Malnutrition Patient General Information Nutritional Screening Consult Diagnosis AKF, sacral decubitus ulcer stage IV, HTN, DM, dementia, chronic anemia Pertinent Medical Hx/Surgical Hx CAD, CVA, dementia, psychosis, muscle atrophy, AKF, DM, decubitus ulcer stage IV Subjective Information 81 year old female from SNF. RD consult for low Elliot and elevated blood glucose. Pt was awake, unable to provide nutrition hx. Family at bedside, spoke to family and HAI Pimentel regarding nutrition plan of care, PEG placement consent obtained. Family has no other questions at this time. Elevated BUN, pan helper, K, family reported pt is not on dialysis, "possible HD today" per H&P. Per nursing adm notes , 4-5lb wt loss in 2 weeks. Per family, unaware of UBW, aware of recent wt loss, stated pt stopped eating ~3-4 days ago. Loose skin, moderate to severe muslce fat wasting to chest and clavicles. Current Diet Order/ Nutrition Support NPO Pertinent Medications Dulcolax, D5-0.45ns, Novolog Pertinent Labs 12/01: A1c 9H 12/02: sodium 173H, potassium 5.3H, BUN 169H, creatinie 5.8H , glucose 238H, calcium 10.8H Nutritional Hx/Data Height 1.52 m Height (Calculated Centimeters) 152.4 Current Weight (lbs) 43.545 kg Weight (Calculated Kilograms) 43.5 Weight (Calculated Grams) 27101.9 [place] Body Weight 100 Recent Weight Change Yes Weight Status Approriate GI Symptoms Usual diet at home [facility]: [facility] Skin Integrity/Comment: Elliot 11. Sacral decubitus ulcer stage IV. Estimated Nutritional Goals Calories/Kcals/Kg IBW 100lb/45.5kg Kcals Calculated 1365-1593kcal (30-35kcal/kg) Protein Calculated 68-73g (1.4-1.6g/kg, ulcer vs renal, ?HD) Fluid: ml Per MD Nutritional Problem 3. Problem Problem Altered nutrition related laboratory values related to Etiology DM aeb Signs/Symptoms: A1c 9H, glucose 238H 2. Problem Problem Increased kcal and prot needs related to Etiology skin integrity, recent weight loss aeb Signs/Symptoms: Sacral decubitus ulcer stage IV, wt loss 4-5lb in 2 weeks per nursing adm notes, moderate to seevre muslce/fat wasting to chest and clavicles 1. Problem Problem Impaired nutrient utilization related to Etiology acute kidney injury aeb Signs/Symptoms: potassium 5.3H, BUN 169H, creatinie 5.8H, calcium 10.8H Intervention/Recommendation Comments 1. Discussed enteral nutrition with family. Family has no further questions at this time . 2. When medically feasible to initiate feeding, recommend Novasource Renal at 30ml/hr x 24hrs, providing 720ml total volume, 1440kcal, 65g protein. Initiate at 10ml/hr for first 24 hrs, monitor for refeeding syndrome and tolerance, increase by 5ml/hr q12hrs until goal. 3. Recommend 1 packet Arginaid daily via tube for wound healing. 4. Monitor weight closely. Hx 4-5lb wt loss in 2 weeks per nursing adm note. Expected Outcomes/Goals Expected Outcomes/Goals 1. Pt to meet at least 75% of estimated nutritinoal eneds on tube feeding with tolerance.
--- NOTE | 2016-12-06 10:19 | General Progress Note ---
Subjective - Review of Systems Service Date: 12/06/16 Events since last encounter: labs ok still intubated start GT feedings Objective - Results Result Diagrams: 12/06/16 04:40 12/06/16 04:40 Recent Labs: Laboratory Last Values WBC 9.4 Th/cmm (4.8-10.8) 12/06/16 04:40 Corrected WBC (auto) 8.8 Th/cmm (4.8-10.8) 12/01/16 18:25 RBC 3.21 Mil/cmm (3.80-5.20) L 12/06/16 04:40 Hgb 9.3 gm/dL (12-16) L 12/06/16 04:40 Hct 28.2 % (41.0-60) L 12/06/16 04:40 MCV 88.0 fl (81-100) 12/06/16 04:40 MCH 28.9 pg (27.0-31.0) 12/06/16 04:40 MCHC Differential 32.9 pg (28.0-36.0) 12/06/16 04:40 RDW 18.0 % (11.5-20.0) 12/06/16 04:40 Plt Count 79 Th/cmm (150-400) L 12/06/16 04:40 MPV 14.1 fl 12/06/16 04:40 Neutrophils % 82.5 % (40.0-80.0) H 12/06/16 04:40 Band Neutrophils % 8 % (0-10) 12/04/16 04:50 Lymphocytes % 11.3 % (20.0-50.0) L 12/06/16 04:40 Monocytes % 4.8 % (2.0-10.0) 12/06/16 04:40 Eosinophils % 1.2 % (0.0-5.0) 12/06/16 04:40 Basophils % 0.2 % (0.0-2.0) 12/06/16 04:40 Neutrophils (Manual) 77 % (40-80) 12/04/16 04:50 Lymphocytes 10 % (20-50) L 12/04/16 04:50 Monocytes 5 % (2-10) 12/04/16 04:50 Eosinophils 3 % (0-5) 12/03/16 05:35 Nucleated RBCs 5.0 % (0-0) H 12/01/16 18:25 Atypical Lymphocytes 1 % 12/01/16 18:25 Platelet Estimate SLIGHT DECREASED (NORMAL) 12/04/16 04:50 Platelet Morphology NORMAL (NORMAL) 12/01/16 18:25 Anisocytosis 2+ 12/03/16 05:35 RBC Morph Micro Appear ABNORMAL (NORMAL) 12/01/16 18:25 Eos Smear Source URINE 12/03/16 06:30 Eos Smear Total Cells NONE SEEN (NONE SEEN) 12/03/16 06:30 PT 11.2 SECONDS (9.5-11.5) 12/03/16 05:35 INR 1.08 (0.5-1.4) 12/03/16 05:35 PTT (Actin FS) 19.6 SECONDS (26.0-38.0) L 12/01/16 18:25 Specimen Source Arterial 12/06/16 08:47 Sample Site Left Radial 12/06/16 08:47 pH 7.35 (7.35-7.45) 12/06/16 08:47 pCO2 19.0 mmHg (35.0-45.0) L* 12/06/16 08:47 pO2 177.0 mmHg (80.0-100.0) H 12/06/16 08:47 HCO3 14.9 mEq/L (20.0-26.0) L 12/06/16 08:47 Base Excess -12.9 mEq/L (-3.0-3.0) L 12/06/16 08:47 O2 Saturation 100.0 % (92.0-100.0) 12/06/16 08:47 Isidro Test Positive 12/06/16 08:47 Vent Rate 8 12/06/16 08:47 Inspired O2 40 12/06/16 08:47 Tidal Volume 450 12/06/16 08:47 PEEP 5 12/06/16 08:47 Pressure (ins/psv/peep) 10 12/06/16 08:47 Critical Value O. Storm 12/06/16 08:47 Sodium 152 mEq/L (136-145) H 12/06/16 04:40 Potassium 3.8 mEq/L (3.5-5.1) 12/06/16 04:40 Chloride 128 mEq/L (98-107) H 12/06/16 04:40 Carbon Dioxide 13.8 mEq/L (21.0-31.0) L 12/06/16 04:40 Anion Gap 14.0 (7.0-16.0) 12/06/16 04:40 BUN 85 mg/dL (7-25) H* 12/06/16 04:40 Creatinine 3.2 mg/dL (0.6-1.2) H 12/06/16 04:40 Est GFR ( Amer) TNP 12/06/16 04:40 Est GFR (Non-Af Amer) TNP 12/06/16 04:40 BUN/Creatinine Ratio 26.6 12/06/16 04:40 Glucose 174 mg/dL (70-105) H 12/06/16 07:10 POC Glucose 120 MG/DL (70 - 105) H 12/06/16 07:07 Hemoglobin A1c % 9.0 % (4.0-6.0) H 12/01/16 18:25 Whole Bld Lactic Acid 2.84 mmol/L (0.60-1.99) H* 12/05/16 12:05 Uric Acid 11.6 mg/dL (2.3-6.6) H 12/03/16 05:35 Calcium 8.8 mg/dL (8.6-10.3) 12/06/16 04:40 Magnesium 2.7 mg/dL (1.9-2.7) 12/03/16 05:35 Total Bilirubin 0.5 mg/dL (0.3-1.0) 12/05/16 10:05 AST 8 U/L (13-39) L 12/05/16 10:05 ALT 3 U/L (7-52) L 12/05/16 10:05 Alkaline Phosphatase 83 U/L (34-104) 12/05/16 10:05 Total Protein 5.2 gm/dL (6.0-8.3) L 12/05/16 10:05 Albumin 2.4 gm/dL (3.7-5.3) L 12/05/16 10:05 Globulin 2.8 gm/dL 12/05/16 10:05 Albumin/Globulin Ratio 0.9 (1.0-1.8) L 12/05/16 10:05 TSH 2.49 uIU/ml (0.34-5.60) 12/03/16 05:35 Urine Source SOTO PORT 12/02/16 14:56 Urine Color YELLOW 12/02/16 14:56 Urine Clarity HAZY (CLEAR) 12/02/16 14:56 Urine pH 8.0 (4.6 - 8.0) 12/02/16 14:56 Ur Specific [place] 1.015 (1.005-1.030) 12/02/16 14:56 Urine Protein 100 mg/dL (NEGATIVE) H 12/02/16 14:56 Urine Glucose (UA) 500 mg/dL (NEGATIVE) H 12/02/16 14:56 Urine Ketones NEGATIVE mg/dL (NEGATIVE) 12/02/16 14:56 Urine Blood MODERATE (NEGATIVE) H 12/02/16 14:56 Urine Nitrate POSITIVE (NEGATIVE) H 12/02/16 14:56 Urine Bilirubin NEGATIVE (NEGATIVE) 12/02/16 14:56 Urine Urobilinogen 0.2 E.U./dL (0.2 - 1.0) 12/02/16 14:56 Ur Leukocyte Esterase MODERATE (NEGATIVE) H 12/02/16 14:56 Urine RBC 5-10 /hpf (0-5) H 12/02/16 14:56 Urine WBC 50-100 /hpf (0-5) H 12/02/16 14:56 Ur Epithelial Cells FEW /lpf (FEW) 12/02/16 14:56 Triple Phos Crystals MODERATE /hpf (FEW) 12/02/16 14:56 Urine Bacteria MANY /hpf (NONE SEEN) 12/02/16 14:56 Urine Osmolality 488 mOsmol/kg 12/03/16 06:30 Ur Random Sodium 75 mmol/L 12/03/16 06:30 Urine Creatinine 49.0 mg/dl (28.0-217.0) 12/03/16 06:30 Blood Type O POSITIVE 12/02/16 05:05 Antibody Screen NEGATIVE 12/02/16 05:05 Crossmatch See Detail 12/02/16 05:05 - Physical Exam Vitals and I&O: Vital Signs Temp 96.7 F 12/06/16 06:00 Pulse 84 12/06/16 09:35 Resp 16 12/06/16 07:00 BP 127/64 12/06/16 07:00 Pulse Ox 100 12/06/16 09:35 Intake & Output 12/05/16 12/06/16 12/06/16 18:59 06:59 18:59 Intake Total 388.333 300 Output Total 650 650 Balance -261.667 -350 Weight (lbs) 53.07 kg 53.07 kg Intake: Intake, IV Amount 338.333 200 KCL 20mEq/100mL Premix 20 88.333 meq In 100 ml @ 50 mls/ hr IV Q2H [facility] Rx#: [id number] Piperacillin Sodium/ 50 100 Tazobact 2.25 gm In Dextrose 5% 50 ml @ 100 mls/hr IV Q8H [facility] Rx#: [id number] metroNIDAZOLE 500mg/NS 200 100 100mL 500 mg In Premix Fluid 1 bag @ 100 mls/hr IV Q8H [facility] Rx#:[id number] Other 50 100 Output: Urine 650 650 Stool 0 Other: # Bowel Movements 0 Active Medications: Current Medications Acetaminophen (Tylenol) 650 mg PO Q6H PRN PRN Reason: Mild Pain or Fever >101 Stop: 01/31/17 11:18 Albuterol/Ipratropium (Duoneb Neb) 3 ml HHN Q6HRT [facility] Stop: 02/04/17 12:59 Albuterol/Ipratropium (Duoneb Neb) 3 ml HHN Q2HRT PRN PRN Reason: Wheezing Stop: 02/04/17 10:02 Bisacodyl (Dulcolax 5 Mg Ec Tab) 10 mg PO BID [facility] Stop: 01/31/17 16:59 Last Admin: 12/06/16 09:07 Dose: Not Given Chlorhexidine Gluconate (Peridex) 15 ml MM 0800,1999 [facility] Stop: 02/03/17 19:59 Last Admin: 12/06/16 09:00 Dose: 15 ml Epoetin Esequiel (Epogen) 10,000 units SUBQ TuThSa [facility] Stop: 02/01/17 14:29 Last Admin: 12/03/16 16:01 Dose: 10,000 units Hydromorphone HCl (Dilaudid) 1 mg IVP Q6HR PRN PRN Reason: Pain (Moderate-Severe) Stop: 02/04/17 08:11 Last Admin: 12/06/16 10:14 Dose: 1 mg Piperacillin Sod/Tazobactam (Sod 2.25 gm/ Dextrose) 50 mls @ 100 mls/hr IV Q8H [facility] Stop: 02/03/17 10:59 Last Infusion: 12/06/16 03:40 Dose: Infused Metronidazole 500 mg/ (Miscellaneous) 100 mls @ 100 mls/hr IV Q8H [facility] Stop: 02/03/17 09:59 Last Admin: 12/06/16 09:59 Dose: 100 mls/hr Dextrose (D5w) 1,000 mls @ 100 mls/hr IV .Q10H [facility] Stop: 02/04/17 09:29 Last Admin: 12/06/16 09:59 Dose: 100 mls/hr Insulin Aspart (Novolog Insulin Sliding Scale) 0 units SUBQ ACHS [facility] PRN Reason: Protocol Stop: 01/31/17 07:29 Last Admin: 12/06/16 06:43 Dose: Not Given Insulin Detemir (Levemir Insulin) 10 units SUBQ HS [facility] PRN Reason: Protocol Stop: 02/03/17 20:59 Last Admin: 12/05/16 21:31 Dose: 10 unit Miscellaneous (Vte Chemical Prophylaxis Screen/ Admission) 1 ea PRN PRN PRN Reason: PROTOCOL Stop: 01/31/17 13:38 Miscellaneous (Clinical Monitoring) 1 ea DAILY PRN PRN Reason: RENAL Stop: 02/04/17 08:05 Pantoprazole Sodium (Protonix) 40 mg IVP DAILY [facility] Stop: 02/01/17 08:59 Last Admin: 12/06/16 09:07 Dose: 40 mg Potassium Chloride (Potassium Chloride Elixir) 20 meq GT DAILY ONE Stop: 12/06/16 12:01 Sodium Bicarbonate (Sodium Bicarbonate) 650 mg PO BID [facility] PRN Reason: Protocol Stop: 01/31/17 16:59 Last Admin: 12/06/16 09:07 Dose: 650 mg General: Alert, Other (Patient is awake, restless trying to take off tubes.) HEENT: Atraumatic, Mucous membr. moist/pink, Other (Patient is intubated) Neck: Supple, +2 carotid pulse wo bruit Cardiovascular: Regular rate, Normal S1, Normal S2 Lungs: Clear to auscultation, Other Abdomen: Bowel sounds, Soft, Other (PEG in place, Colostomy in place) Extremities: Other (No edema), no Edema Neurological: Other (Non ambulatory), no Sensation intact Skin: Other (Decubit sacral ulcer stage IV), no Significant lesion Psych/Mental Status: Other (Awake, alert, restless, intubated), no Mood NL - Procedures Procedures: Procedures Procedure Code Date BYPASS DESCENDING COLON TO CUTANEOUS, OPEN APPROACH [id number] 12/02/16 COLOSTOMY 74298 12/02/16 CHAGO BONE 20 SQ CM/< 23147 12/02/16 CHAGO MUSC/FASCIA 20 SQ CM/< 89210 10/24/16 CHAGO SUBQ TISSUE 20 SQ CM/< 25187 12/02/16 EXCISION OF L FOOT SUBCU/FASCIA, OPEN APPROACH [id number] 12/02/16 EXCISION OF LEFT HIP MUSCLE, OPEN APPROACH [id number] 10/24/16 EXCISION OF LEFT PELVIC BONE, OPEN APPROACH [id number] 12/02/16 EXCISION OF R FOOT SUBCU/FASCIA, OPEN APPROACH [id number] 12/02/16 Assessment/Plan - Problem List Patient Problems: All Active Problems POOR ORAL INTAKE AND SWALLOWING (Acute) SACRAL AND BILATERAL BUTTOCK SKIN ULCERS (Acute) Nutritional Asmnt/Malnutr-PDOC - Dietary Evaluation Malnutrition Findings (Please click <Entered> for more info): Nutritional Asmnt/Malnutrition Start: 12/02/16 14: 44 Text: Status: Complete Freq: Document 12/02/16 14:44 GSUN (Rec: 12/02/16 15:19 GSUN [id number]) Nutritional Asmnt/Malnutrition Patient General Information Nutritional Screening Consult Diagnosis AKF, sacral decubitus ulcer stage IV, HTN, DM, dementia, chronic anemia Pertinent Medical Hx/Surgical Hx CAD, CVA, dementia, psychosis, muscle atrophy, AKF, DM, decubitus ulcer stage IV Subjective Information 81 year old female from SNF. RD consult for low Elliot and elevated blood glucose. Pt was awake, unable to provide nutrition hx. Family at bedside, spoke to family and HAI Pimentel regarding nutrition plan of care, PEG placement consent obtained. Family has no other questions at this time. 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 Per nursing adm notes , 4-5lb wt loss in 2 weeks. Per family, unaware of UBW, aware of recent wt loss, stated pt stopped eating ~3-4 days ago. Loose skin, moderate to severe muslce fat wasting to chest and clavicles. Current Diet Order/ Nutrition Support NPO Pertinent Medications Dulcolax, D5-0.45ns, Novolog Pertinent Labs 12/01: A1c 9H 12/02: sodium 173H, potassium 5.3H, BUN 169H, creatinie 5.8H , glucose 238H, calcium 10.8H Nutritional Hx/Data Height 1.52 m Height (Calculated Centimeters) 152.4 Current Weight (lbs) 43.545 kg Weight (Calculated Kilograms) 43.5 Weight (Calculated Grams) 98335.9 [place] Body Weight 100 Recent Weight Change Yes Weight Status Approriate GI Symptoms Usual diet at home [facility]: pureed, [facility] , [facility] Skin Integrity/Comment: Elliot 11. Sacral decubitus ulcer stage IV. Estimated Nutritional Goals Calories/Kcals/Kg IBW 100lb/45.5kg Kcals Calculated 1365-1593kcal (30-35kcal/kg) Protein Calculated 68-73g (1.4-1.6g/kg, ulcer vs renal, ?HD) Fluid: ml Per MD Nutritional Problem 3. Problem Problem Altered nutrition related laboratory values related to Etiology DM aeb Signs/Symptoms: A1c 9H, glucose 238H 2. Problem Problem Increased kcal and prot needs related to Etiology skin integrity, recent weight loss aeb Signs/Symptoms: Sacral decubitus ulcer stage IV, wt loss 4-5lb in 2 weeks per nursing adm notes, moderate to seevre muslce/fat wasting to chest and clavicles 1. Problem Problem Impaired nutrient utilization related to Etiology acute kidney injury aeb Signs/Symptoms: potassium 5.3H, BUN 169H, creatinie 5.8H, calcium 10.8H Intervention/Recommendation Comments 1. Discussed enteral nutrition with family. Family has no further questions at this time . 2. When medically feasible to initiate feeding, recommend Novasource Renal at 30ml/hr x 24hrs, providing 720ml total volume, 1440kcal, 65g protein. Initiate at 10ml/hr for first 24 hrs, monitor for refeeding syndrome and tolerance, increase by 5ml/hr q12hrs until goal. 3. Recommend 1 packet Arginaid daily via tube for wound healing. 4. Monitor weight closely. Hx 4-5lb wt loss in 2 weeks per nursing adm note. Expected Outcomes/Goals Expected Outcomes/Goals 1. Pt to meet at least 75% of estimated nutritinoal eneds on tube feeding with tolerance.
[2016-12-06] MEDS ORDERED: Dextrose 50% 50 mL Abboject IVP STA (11:31)
[2016-12-06] MEDS ORDERED: Potassium Chloride Elixir 20 mEq /15 mL UDC GT ONE (12:00)
--- NOTE | 2016-12-06 12:21 | Pathology Report ---
[id number] Collection date: 12/03/2016 Surgeon: Dr. Randolph Freeman Specimen Description: Antrum biopsy Gross Description: Received in formalin are three jones soft tissue fragments ranging from 0.1 to 0.2 cm in greatest dimension. Totally submitted in one cassette. Microscopic Description: The histologic sections show gastric mucosa with mild chronic inflammation present consisting of lymphocytes and plasma cells. The Giemsa stain shows no evidence for Helicobacter pylori. Diagnosis: 1. Mild chronic gastritis, antrum biopsy. 2. The Giemsa stain is negative for Helicobacter pylori. [facility]# [id number] [facility]
--- NOTE | 2016-12-06 12:21 | Pathology Report ---
[id number] Collection date: 12/03/2016 Surgeon: Dr. Randolph Freeman Specimen Description: Antrum biopsy Gross Description: Received in formalin are three jones soft tissue fragments ranging from 0.1 to 0.2 cm in greatest dimension. Totally submitted in one cassette. Microscopic Description: The histologic sections show gastric mucosa with mild chronic inflammation present consisting of lymphocytes and plasma cells. The Giemsa stain shows no evidence for Helicobacter pylori. Diagnosis: 1. Mild chronic gastritis, antrum biopsy. 2. The Giemsa stain is negative for Helicobacter pylori. [facility]# [id number] [facility]
--- NOTE | 2016-12-06 12:21 | Pathology Report ---
[id number] Collection date: 12/03/2016 Surgeon: Dr. Randolph Freeman Specimen Description: Antrum biopsy Gross Description: Received in formalin are three jones soft tissue fragments ranging from 0.1 to 0.2 cm in greatest dimension. Totally submitted in one cassette. Microscopic Description: The histologic sections show gastric mucosa with mild chronic inflammation present consisting of lymphocytes and plasma cells. The Giemsa stain shows no evidence for Helicobacter pylori. Diagnosis: 1. Mild chronic gastritis, antrum biopsy. 2. The Giemsa stain is negative for Helicobacter pylori. [facility]# [id number] [facility]
--- NOTE | 2016-12-06 12:31 | Pathology Report ---
[id number] Collection date: 12/05/2016 Surgeon: Dr. Randolph Goel Specimen Description: 1. Debrided tissue, left hip area 2. Debrided tissue, bilateral feet Gross Description: Part I: Received in formalin are three fragments of jones-bal soft tissue ranging from 0.7 to 4.0 cm in greatest dimension. Sectioning shows ulcerated and degenerated soft tissue. Pi/Senior Research Associate sections are submitted in one cassette labeled A. Gross Description: Part II: Received in formalin are four thin slices of jones-bal skin ranging from 1.8 to 3.5 cm in greatest dimension x less than 1 mm in thickness. Sectioning shows degenerated / ulcerated skin. Pi/Senior Research Associate sections are submitted in one cassette labeled B. Microscopic Description: Part I: The histologic sections show degenerated soft tissue with extensive acute suppurative inflammation consisting of large collections of neutrophils within a degenerated / necrotic background. Diagnosis: Part I: Ulcerated necrotic tissue consistent with debridement, left hip area. Microscopic Description: Part II: The histologic sections show excisions of superficial skin showing superficial ulceration and extensive suppurative inflammation consisting of large collections of neutrophils with a background showing necrosis. Diagnosis: Part II: Ulcerated necrotic skin consistent with debridement, bilateral feet. [facility]# [id number] [facility]
--- NOTE | 2016-12-06 12:31 | Pathology Report ---
[id number] Collection date: 12/05/2016 Surgeon: Dr. Randolph Goel Specimen Description: 1. Debrided tissue, left hip area 2. Debrided tissue, bilateral feet Gross Description: Part I: Received in formalin are three fragments of jones-bal soft tissue ranging from 0.7 to 4.0 cm in greatest dimension. Sectioning shows ulcerated and degenerated soft tissue. Rock Cutter sections are submitted in one cassette labeled A. Gross Description: Part II: Received in formalin are four thin slices of jones-bal skin ranging from 1.8 to 3.5 cm in greatest dimension x less than 1 mm in thickness. Sectioning shows degenerated / ulcerated skin. Rock Cutter sections are submitted in one cassette labeled B. Microscopic Description: Part I: The histologic sections show degenerated soft tissue with extensive acute suppurative inflammation consisting of large collections of neutrophils within a degenerated / necrotic background. Diagnosis: Part I: Ulcerated necrotic tissue consistent with debridement, left hip area. Microscopic Description: Part II: The histologic sections show excisions of superficial skin showing superficial ulceration and extensive suppurative inflammation consisting of large collections of neutrophils with a background showing necrosis. Diagnosis: Part II: Ulcerated necrotic skin consistent with debridement, bilateral feet. [facility]# [id number] [facility]
--- NOTE | 2016-12-06 12:31 | Pathology Report ---
[id number] Collection date: 12/05/2016 Surgeon: Dr. Randolph Goel Specimen Description: 1. Debrided tissue, left hip area 2. Debrided tissue, bilateral feet Gross Description: Part I: Received in formalin are three fragments of jones-bal soft tissue ranging from 0.7 to 4.0 cm in greatest dimension. Sectioning shows ulcerated and degenerated soft tissue. L[employer] Fr[employer] Prescription Clerk sections are submitted in one cassette labeled A. Gross Description: Part II: Received in formalin are four thin slices of jones-bal skin ranging from 1.8 to 3.5 cm in greatest dimension x less than 1 mm in thickness. Sectioning shows degenerated / ulcerated skin. L[employer] And [employer] Prescription Clerk sections are submitted in one cassette labeled B. Microscopic Description: Part I: The histologic sections show degenerated soft tissue with extensive acute suppurative inflammation consisting of large collections of neutrophils within a degenerated / necrotic background. Diagnosis: Part I: Ulcerated necrotic tissue consistent with debridement, left hip area. Microscopic Description: Part II: The histologic sections show excisions of superficial skin showing superficial ulceration and extensive suppurative inflammation consisting of large collections of neutrophils with a background showing necrosis. Diagnosis: Part II: Ulcerated necrotic skin consistent with debridement, bilateral feet. [facility]# [id number] [facility]
[2016-12-06] MEDS: Albuterol/Ipratropium Neb 3 ML AERS HHN SCH ×2 (12:57→18:44)
--- NOTE | 2016-12-06 14:29 | General Progress Note ---
Subjective - Review of Systems Service Date: 12/06/16 Subjective: more awake, comfortable, on vent Objective - Results Result Diagrams: 12/06/16 04:40 12/06/16 04:40 Recent Labs: Laboratory Last Values WBC 9.4 Th/cmm (4.8-10.8) 12/06/16 04:40 Corrected WBC (auto) 8.8 Th/cmm (4.8-10.8) 12/01/16 18:25 RBC 3.21 Mil/cmm (3.80-5.20) L 12/06/16 04:40 Hgb 9.3 gm/dL (12-16) L 12/06/16 04:40 Hct 28.2 % (41.0-60) L 12/06/16 04:40 MCV 88.0 fl (81-100) 12/06/16 04:40 MCH 28.9 pg (27.0-31.0) 12/06/16 04:40 MCHC Differential 32.9 pg (28.0-36.0) 12/06/16 04:40 RDW 18.0 % (11.5-20.0) 12/06/16 04:40 Plt Count 79 Th/cmm (150-400) L 12/06/16 04:40 MPV 14.1 fl 12/06/16 04:40 Neutrophils % 82.5 % (40.0-80.0) H 12/06/16 04:40 Band Neutrophils % 8 % (0-10) 12/04/16 04:50 Lymphocytes % 11.3 % (20.0-50.0) L 12/06/16 04:40 Monocytes % 4.8 % (2.0-10.0) 12/06/16 04:40 Eosinophils % 1.2 % (0.0-5.0) 12/06/16 04:40 Basophils % 0.2 % (0.0-2.0) 12/06/16 04:40 Neutrophils (Manual) 77 % (40-80) 12/04/16 04:50 Lymphocytes 10 % (20-50) L 12/04/16 04:50 Monocytes 5 % (2-10) 12/04/16 04:50 Eosinophils 3 % (0-5) 12/03/16 05:35 Nucleated RBCs 5.0 % (0-0) H 12/01/16 18:25 Atypical Lymphocytes 1 % 12/01/16 18:25 Platelet Estimate SLIGHT DECREASED (NORMAL) 12/04/16 04:50 Platelet Morphology NORMAL (NORMAL) 12/01/16 18:25 Anisocytosis 2+ 12/03/16 05:35 RBC Morph Micro Appear ABNORMAL (NORMAL) 12/01/16 18:25 Eos Smear Source URINE 12/03/16 06:30 Eos Smear Total Cells NONE SEEN (NONE SEEN) 12/03/16 06:30 PT 11.2 SECONDS (9.5-11.5) 12/03/16 05:35 INR 1.08 (0.5-1.4) 12/03/16 05:35 PTT (Actin FS) 19.6 SECONDS (26.0-38.0) L 12/01/16 18:25 Specimen Source Arterial 12/06/16 08:47 Sample Site Left Radial 12/06/16 08:47 pH 7.35 (7.35-7.45) 12/06/16 08:47 pCO2 19.0 mmHg (35.0-45.0) L* 12/06/16 08:47 pO2 177.0 mmHg (80.0-100.0) H 12/06/16 08:47 HCO3 14.9 mEq/L (20.0-26.0) L 12/06/16 08:47 Base Excess -12.9 mEq/L (-3.0-3.0) L 12/06/16 08:47 O2 Saturation 100.0 % (92.0-100.0) 12/06/16 08:47 Isidro Test Positive 12/06/16 08:47 Vent Rate 8 12/06/16 08:47 Inspired O2 40 12/06/16 08:47 Tidal Volume 450 12/06/16 08:47 PEEP 5 12/06/16 08:47 Pressure (ins/psv/peep) 10 12/06/16 08:47 Critical Value O. Storm 12/06/16 08:47 Sodium 152 mEq/L (136-145) H 12/06/16 04:40 Potassium 3.8 mEq/L (3.5-5.1) 12/06/16 04:40 Chloride 128 mEq/L (98-107) H 12/06/16 04:40 Carbon Dioxide 13.8 mEq/L (21.0-31.0) L 12/06/16 04:40 Anion Gap 14.0 (7.0-16.0) 12/06/16 04:40 BUN 85 mg/dL (7-25) H* 12/06/16 04:40 Creatinine 3.2 mg/dL (0.6-1.2) H 12/06/16 04:40 Est GFR ( Amer) TNP 12/06/16 04:40 Est GFR (Non-Af Amer) TNP 12/06/16 04:40 BUN/Creatinine Ratio 26.6 12/06/16 04:40 Glucose 195 mg/dL (70-105) H 12/06/16 12:08 POC Glucose 52 MG/DL (70 - 105) L 12/06/16 11:28 Hemoglobin A1c % 9.0 % (4.0-6.0) H 12/01/16 18:25 Whole Bld Lactic Acid 2.84 mmol/L (0.60-1.99) H* 12/05/16 12:05 Uric Acid 11.6 mg/dL (2.3-6.6) H 12/03/16 05:35 Calcium 8.8 mg/dL (8.6-10.3) 12/06/16 04:40 Magnesium 2.7 mg/dL (1.9-2.7) 12/03/16 05:35 Total Bilirubin 0.5 mg/dL (0.3-1.0) 12/05/16 10:05 AST 8 U/L (13-39) L 12/05/16 10:05 ALT 3 U/L (7-52) L 12/05/16 10:05 Alkaline Phosphatase 83 U/L (34-104) 12/05/16 10:05 Total Protein 5.2 gm/dL (6.0-8.3) L 12/05/16 10:05 Albumin 2.4 gm/dL (3.7-5.3) L 12/05/16 10:05 Globulin 2.8 gm/dL 12/05/16 10:05 Albumin/Globulin Ratio 0.9 (1.0-1.8) L 12/05/16 10:05 TSH 2.49 uIU/ml (0.34-5.60) 12/03/16 05:35 Urine Source SOTO PORT 12/02/16 14:56 Urine Color YELLOW 12/02/16 14:56 Urine Clarity HAZY (CLEAR) 12/02/16 14:56 Urine pH 8.0 (4.6 - 8.0) 12/02/16 14:56 Ur Specific [place] 1.015 (1.005-1.030) 12/02/16 14:56 Urine Protein 100 mg/dL (NEGATIVE) H 12/02/16 14:56 Urine Glucose (UA) 500 mg/dL (NEGATIVE) H 12/02/16 14:56 Urine Ketones NEGATIVE mg/dL (NEGATIVE) 12/02/16 14:56 Urine Blood MODERATE (NEGATIVE) H 12/02/16 14:56 Urine Nitrate POSITIVE (NEGATIVE) H 12/02/16 14:56 Urine Bilirubin NEGATIVE (NEGATIVE) 12/02/16 14:56 Urine Urobilinogen 0.2 E.U./dL (0.2 - 1.0) 12/02/16 14:56 Ur Leukocyte Esterase MODERATE (NEGATIVE) H 12/02/16 14:56 Urine RBC 5-10 /hpf (0-5) H 12/02/16 14:56 Urine WBC 50-100 /hpf (0-5) H 12/02/16 14:56 Ur Epithelial Cells FEW /lpf (FEW) 12/02/16 14:56 Triple Phos Crystals MODERATE /hpf (FEW) 12/02/16 14:56 Urine Bacteria MANY /hpf (NONE SEEN) 12/02/16 14:56 Urine Osmolality 488 mOsmol/kg 12/03/16 06:30 Ur Random Sodium 75 mmol/L 12/03/16 06:30 Urine Creatinine 49.0 mg/dl (28.0-217.0) 12/03/16 06:30 Blood Type O POSITIVE 12/02/16 05:05 Antibody Screen NEGATIVE 12/02/16 05:05 Crossmatch See Detail 12/02/16 05:05 - Physical Exam Vitals and I&O: Vital Signs Temp 98.0 F 12/06/16 12:00 Pulse 88 12/06/16 12:58 Resp 19 12/06/16 12:00 BP 110/57 12/06/16 12:00 Pulse Ox 100 12/06/16 12:58 Intake & Output 12/05/16 12/06/16 12/06/16 18:59 06:59 18:59 Intake Total 388.333 300 Output Total 650 650 Balance -261.667 -350 Weight (lbs) 53.07 kg 53.07 kg Intake: Intake, IV Amount 338.333 200 KCL 20mEq/100mL Premix 20 88.333 meq In 100 ml @ 50 mls/ hr IV Q2H [facility] Rx#: [id number] Piperacillin Sodium/ 50 100 Tazobact 2.25 gm In Dextrose 5% 50 ml @ 100 mls/hr IV Q8H [facility] Rx#: [id number] metroNIDAZOLE 500mg/NS 200 100 100mL 500 mg In Premix Fluid 1 bag @ 100 mls/hr IV Q8H [facility] Rx#:[id number] Other 50 100 Output: Urine 650 650 Stool 0 Other: # Bowel Movements 0 Active Medications: Current Medications Acetaminophen (Tylenol) 650 mg PO Q6H PRN PRN Reason: Mild Pain or Fever >101 Stop: 01/31/17 11:18 Albuterol/Ipratropium (Duoneb Neb) 3 ml HHN Q6HRT [facility] Stop: 02/04/17 12:59 Last Admin: 12/06/16 12:57 Dose: 3 ml Albuterol/Ipratropium (Duoneb Neb) 3 ml HHN Q2HRT PRN PRN Reason: Wheezing Stop: 02/04/17 10:02 Last Admin: 12/06/16 10:23 Dose: 3 ml Bisacodyl (Dulcolax 5 Mg Ec Tab) 10 mg PO BID [facility] Stop: 01/31/17 16:59 Last Admin: 12/06/16 09:07 Dose: Not Given Chlorhexidine Gluconate (Peridex) 15 ml MM 0800,1999 [facility] Stop: 02/03/17 19:59 Last Admin: 12/06/16 09:00 Dose: 15 ml Epoetin Esequiel (Epogen) 10,000 units SUBQ TuThSa [facility] Stop: 02/01/17 14:29 Last Admin: 12/03/16 16:01 Dose: 10,000 units Hydromorphone HCl (Dilaudid) 1 mg IVP Q6HR PRN PRN Reason: Pain (Moderate-Severe) Stop: 02/04/17 08:11 Last Admin: 12/06/16 10:14 Dose: 1 mg Piperacillin Sod/Tazobactam (Sod 2.25 gm/ Dextrose) 50 mls @ 100 mls/hr IV Q8H [facility] Stop: 02/03/17 10:59 Last Admin: 12/06/16 11:32 Dose: 100 mls/hr Metronidazole 500 mg/ (Miscellaneous) 100 mls @ 100 mls/hr IV Q8H [facility] Stop: 02/03/17 09:59 Last Admin: 12/06/16 09:59 Dose: 100 mls/hr Dextrose (D5w) 1,000 mls @ 100 mls/hr IV .Q10H [facility] Stop: 02/04/17 09:29 Last Admin: 12/06/16 09:59 Dose: 100 mls/hr Insulin Aspart (Novolog Insulin Sliding Scale) 0 units SUBQ ACHS [facility] PRN Reason: Protocol Stop: 01/31/17 07:29 Last Admin: 12/06/16 11:51 Dose: Not Given Insulin Detemir (Levemir Insulin) 10 units SUBQ HS [facility] PRN Reason: Protocol Stop: 02/03/17 20:59 Last Admin: 12/05/16 21:31 Dose: 10 unit Miscellaneous (Vte Chemical Prophylaxis Screen/ Admission) 1 [facility] PRN PRN PRN Reason: PROTOCOL Stop: 01/31/17 13:38 Miscellaneous (Clinical Monitoring) 1 [facility] DAILY PRN PRN Reason: RENAL Stop: 02/04/17 08:05 Pantoprazole Sodium (Protonix) 40 mg IVP DAILY [facility] Stop: 02/01/17 08:59 Last Admin: 12/06/16 09:07 Dose: 40 mg Sodium Bicarbonate (Sodium Bicarbonate) 650 mg PO BID [facility] PRN Reason: Protocol Stop: 01/31/17 16:59 Last Admin: 12/06/16 09:07 Dose: 650 mg General: No acute distress, Other (Patient is awake, restless trying to take off tubes.) HEENT: Atraumatic, Mucous membr. moist/pink, Other (Patient is intubated) Neck: Supple, +2 carotid pulse wo bruit Cardiovascular: Regular rate, Normal S1, Normal S2 Lungs: Clear to auscultation, Other (few rhonchi) Abdomen: Bowel sounds, Soft, Other (PEG in place, Colostomy in place) Extremities: Other (No edema), no Edema Neurological: Sensation intact, Other (Non ambulatory) Skin: Other (Decubit sacral ulcer stage IV), no Significant lesion Psych/Mental Status: Mood NL, Other (Awake, alert, restless, intubated) - Procedures Procedures: Procedures Procedure Code Date BYPASS DESCENDING COLON TO CUTANEOUS, OPEN APPROACH [id number] 12/02/16 COLOSTOMY 06613 12/02/16 CHAGO BONE 20 SQ CM/< 47200 12/02/16 CHAGO MUSC/FASCIA 20 SQ CM/< 31886 10/24/16 CHAGO SUBQ TISSUE 20 SQ CM/< 44486 12/02/16 EXCISION OF L FOOT SUBCU/FASCIA, OPEN APPROACH [id number] 12/02/16 EXCISION OF LEFT HIP MUSCLE, OPEN APPROACH [id number] 10/24/16 EXCISION OF LEFT PELVIC BONE, OPEN APPROACH [id number] 12/02/16 EXCISION OF R FOOT SUBCU/FASCIA, OPEN APPROACH [id number] 12/02/16 Assessment/Plan - Problem List Patient Problems: All Active Problems POOR ORAL INTAKE AND SWALLOWING (Acute) SACRAL AND BILATERAL BUTTOCK SKIN ULCERS (Acute) - Assessment Assessment: Bryan on CKD dehydration FTT 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 Anemia CKD Left hip ulcer s/p debridement w/ Vac B/L heel ulcers s/p debridement s/p Diverting colostomy - Plan Plan: Lab - Result Diagrams 12/03/16 05:35 12/03/16 05:35 Current Medications Acetaminophen (Tylenol) 650 mg PO Q6H PRN PRN Reason: Pain or Fever >101 Stop: 01/31/17 11:18 Bisacodyl (Dulcolax 5 Mg Ec Tab) 10 mg PO BID [facility] Stop: 01/31/17 16:59 Last Admin: 12/03/16 11:07 Dose: 10 mg Dextrose (D5w) 1,000 mls @ 125 mls/hr IV .Q8H [facility] Stop: 02/01/17 14:14 Insulin Aspart (Novolog Insulin Sliding Scale) 0 units SUBQ ACHS [facility] PRN Reason: Protocol Stop: 01/31/17 07:29 Last Admin: 12/03/16 12:32 Dose: 9 units Miscellaneous (Vte Chemical Prophylaxis Screen/ Admission) 1 [facility] PRN PRN PRN Reason: PROTOCOL Stop: 01/31/17 13:38 Pantoprazole Sodium (Protonix) 40 mg IVP DAILY [facility] Stop: 02/01/17 08:59 Last Admin: 12/03/16 11:07 Dose: 40 mg Sodium Bicarbonate (Sodium Bicarbonate) 650 mg PO BID [facility] PRN Reason: Protocol Stop: 01/31/17 16:59 Last Admin: 12/03/16 11:07 Dose: 650 mg Lab - Result Diagrams 12/06/16 04:40 12/06/16 04:40 kidney fnc gradually improving back to D5W 100ml/hr w/ increase in Na Had placement of PEG start feeding today w/ glucerna @ 20ml/hr start epo Hgb down to 7.9 up to 10.2 after transfusion continue IVF, start basal insulin Nutritional Asmnt/Malnutr-PDOC - Dietary Evaluation Malnutrition Findings (Please click <Entered> for more info): Nutritional Asmnt/Malnutrition Start: 12/02/16 14: 44 Text: Status: Complete Freq: Document 12/02/16 14:44 GSUN (Rec: 12/02/16 15:19 GSUN [id number]) Nutritional Asmnt/Malnutrition Patient General Information Nutritional Screening Consult Diagnosis AKF, sacral decubitus ulcer stage IV, HTN, DM, dementia, chronic anemia Pertinent Medical Hx/Surgical Hx CAD, CVA, dementia, psychosis, muscle atrophy, AKF, DM, decubitus ulcer stage IV Subjective Information 81 year old female from SNF. RD consult for low Elliot and elevated blood glucose. Pt was awake, unable to provide nutrition hx. Family at bedside, spoke to family and RN Loren regarding nutrition plan of care, PEG placement consent obtained. Family has no other questions at this time. 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 Per nursing adm notes , 4-5lb wt loss in 2 weeks. Per family, unaware of UBW, aware of recent wt loss, stated pt stopped eating ~3-4 days ago. Loose skin, moderate to severe muslce fat wasting to chest and clavicles. Current Diet Order/ Nutrition Support NPO Pertinent Medications Dulcolax, D5-0.45ns, Novolog Pertinent Labs 12/01: A1c 9H 12/02: sodium 173H, potassium 5.3H, BUN 169H, creatinie 5.8H , glucose 238H, calcium 10.8H Nutritional Hx/Data Height 1.52 m Height (Calculated Centimeters) 152.4 Current Weight (lbs) 43.545 kg Weight (Calculated Kilograms) 43.5 Weight (Calculated Grams) 34993.9 [place] Body Weight 100 Recent Weight Change Yes Weight Status Approriate GI Symptoms Usual diet at home [facility]: pureed, ALISE , [facility] Skin Integrity/Comment: Elliot 11. Sacral decubitus ulcer stage IV. Estimated Nutritional Goals Calories/Kcals/Kg IBW 100lb/45.5kg Kcals Calculated 1365-1593kcal (30-35kcal/kg) Protein Calculated 68-73g (1.4-1.6g/kg, ulcer vs renal, ?HD) Fluid: ml Per MD Nutritional Problem 3. Problem Problem Altered nutrition related laboratory values related to Etiology DM aeb Signs/Symptoms: A1c 9H, glucose 238H 2. Problem Problem Increased kcal and prot needs related to Etiology skin integrity, recent weight loss aeb Signs/Symptoms: Sacral decubitus ulcer stage IV, wt loss 4-5lb in 2 weeks per nursing adm notes, moderate to seevre muslce/fat wasting to chest and clavicles 1. Problem Problem Impaired nutrient utilization related to Etiology acute kidney injury aeb Signs/Symptoms: potassium 5.3H, BUN 169H, creatinie 5.8H, calcium 10.8H Intervention/Recommendation Comments 1. Discussed enteral nutrition with family. Family has no further questions at this time . 2. When medically feasible to initiate feeding, recommend Novasource Renal at 30ml/hr x 24hrs, providing 720ml total volume, 1440kcal, 65g protein. Initiate at 10ml/hr for first 24 hrs, monitor for refeeding syndrome and tolerance, increase by 5ml/hr q12hrs until goal. 3. Recommend 1 packet Arginaid daily via tube for wound healing. 4. Monitor weight closely. Hx 4-5lb wt loss in 2 weeks per nursing adm note. Expected Outcomes/Goals Expected Outcomes/Goals 1. Pt to meet at least 75% of estimated nutritinoal eneds on tube feeding with tolerance.
--- NOTE | 2016-12-06 14:29 | General Progress Note ---
Subjective - Review of Systems Service Date: 12/06/16 Subjective: more awake, comfortable, on vent Objective - Results Result Diagrams: 12/06/16 04:40 12/06/16 04:40 Recent Labs: Laboratory Last Values WBC 9.4 Th/cmm (4.8-10.8) 12/06/16 04:40 Corrected WBC (auto) 8.8 Th/cmm (4.8-10.8) 12/01/16 18:25 RBC 3.21 Mil/cmm (3.80-5.20) L 12/06/16 04:40 Hgb 9.3 gm/dL (12-16) L 12/06/16 04:40 Hct 28.2 % (41.0-60) L 12/06/16 04:40 MCV 88.0 fl (81-100) 12/06/16 04:40 MCH 28.9 pg (27.0-31.0) 12/06/16 04:40 MCHC Differential 32.9 pg (28.0-36.0) 12/06/16 04:40 RDW 18.0 % (11.5-20.0) 12/06/16 04:40 Plt Count 79 Th/cmm (150-400) L 12/06/16 04:40 MPV 14.1 fl 12/06/16 04:40 Neutrophils % 82.5 % (40.0-80.0) H 12/06/16 04:40 Band Neutrophils % 8 % (0-10) 12/04/16 04:50 Lymphocytes % 11.3 % (20.0-50.0) L 12/06/16 04:40 Monocytes % 4.8 % (2.0-10.0) 12/06/16 04:40 Eosinophils % 1.2 % (0.0-5.0) 12/06/16 04:40 Basophils % 0.2 % (0.0-2.0) 12/06/16 04:40 Neutrophils (Manual) 77 % (40-80) 12/04/16 04:50 Lymphocytes 10 % (20-50) L 12/04/16 04:50 Monocytes 5 % (2-10) 12/04/16 04:50 Eosinophils 3 % (0-5) 12/03/16 05:35 Nucleated RBCs 5.0 % (0-0) H 12/01/16 18:25 Atypical Lymphocytes 1 % 12/01/16 18:25 Platelet Estimate SLIGHT DECREASED (NORMAL) 12/04/16 04:50 Platelet Morphology NORMAL (NORMAL) 12/01/16 18:25 Anisocytosis 2+ 12/03/16 05:35 RBC Morph Micro Appear ABNORMAL (NORMAL) 12/01/16 18:25 Eos Smear Source URINE 12/03/16 06:30 Eos Smear Total Cells NONE SEEN (NONE SEEN) 12/03/16 06:30 PT 11.2 SECONDS (9.5-11.5) 12/03/16 05:35 INR 1.08 (0.5-1.4) 12/03/16 05:35 PTT (Actin FS) 19.6 SECONDS (26.0-38.0) L 12/01/16 18:25 Specimen Source Arterial 12/06/16 08:47 Sample Site Left Radial 12/06/16 08:47 pH 7.35 (7.35-7.45) 12/06/16 08:47 pCO2 19.0 mmHg (35.0-45.0) L* 12/06/16 08:47 pO2 177.0 mmHg (80.0-100.0) H 12/06/16 08:47 HCO3 14.9 mEq/L (20.0-26.0) L 12/06/16 08:47 Base Excess -12.9 mEq/L (-3.0-3.0) L 12/06/16 08:47 O2 Saturation 100.0 % (92.0-100.0) 12/06/16 08:47 Isidro Test Positive 12/06/16 08:47 Vent Rate 8 12/06/16 08:47 Inspired O2 40 12/06/16 08:47 Tidal Volume 450 12/06/16 08:47 PEEP 5 12/06/16 08:47 Pressure (ins/psv/peep) 10 12/06/16 08:47 Critical Value O. Storm 12/06/16 08:47 Sodium 152 mEq/L (136-145) H 12/06/16 04:40 Potassium 3.8 mEq/L (3.5-5.1) 12/06/16 04:40 Chloride 128 mEq/L (98-107) H 12/06/16 04:40 Carbon Dioxide 13.8 mEq/L (21.0-31.0) L 12/06/16 04:40 Anion Gap 14.0 (7.0-16.0) 12/06/16 04:40 BUN 85 mg/dL (7-25) H* 12/06/16 04:40 Creatinine 3.2 mg/dL (0.6-1.2) H 12/06/16 04:40 Est GFR ( Amer) TNP 12/06/16 04:40 Est GFR (Non-Af Amer) TNP 12/06/16 04:40 BUN/Creatinine Ratio 26.6 12/06/16 04:40 Glucose 195 mg/dL (70-105) H 12/06/16 12:08 POC Glucose 52 MG/DL (70 - 105) L 12/06/16 11:28 Hemoglobin A1c % 9.0 % (4.0-6.0) H 12/01/16 18:25 Whole Bld Lactic Acid 2.84 mmol/L (0.60-1.99) H* 12/05/16 12:05 Uric Acid 11.6 mg/dL (2.3-6.6) H 12/03/16 05:35 Calcium 8.8 mg/dL (8.6-10.3) 12/06/16 04:40 Magnesium 2.7 mg/dL (1.9-2.7) 12/03/16 05:35 Total Bilirubin 0.5 mg/dL (0.3-1.0) 12/05/16 10:05 AST 8 U/L (13-39) L 12/05/16 10:05 ALT 3 U/L (7-52) L 12/05/16 10:05 Alkaline Phosphatase 83 U/L (34-104) 12/05/16 10:05 Total Protein 5.2 gm/dL (6.0-8.3) L 12/05/16 10:05 Albumin 2.4 gm/dL (3.7-5.3) L 12/05/16 10:05 Globulin 2.8 gm/dL 12/05/16 10:05 Albumin/Globulin Ratio 0.9 (1.0-1.8) L 12/05/16 10:05 TSH 2.49 uIU/ml (0.34-5.60) 12/03/16 05:35 Urine Source SOTO PORT 12/02/16 14:56 Urine Color YELLOW 12/02/16 14:56 Urine Clarity HAZY (CLEAR) 12/02/16 14:56 Urine pH 8.0 (4.6 - 8.0) 12/02/16 14:56 Ur Specific [place] 1.015 (1.005-1.030) 12/02/16 14:56 Urine Protein 100 mg/dL (NEGATIVE) H 12/02/16 14:56 Urine Glucose (UA) 500 mg/dL (NEGATIVE) H 12/02/16 14:56 Urine Ketones NEGATIVE mg/dL (NEGATIVE) 12/02/16 14:56 Urine Blood MODERATE (NEGATIVE) H 12/02/16 14:56 Urine Nitrate POSITIVE (NEGATIVE) H 12/02/16 14:56 Urine Bilirubin NEGATIVE (NEGATIVE) 12/02/16 14:56 Urine Urobilinogen 0.2 E.U./dL (0.2 - 1.0) 12/02/16 14:56 Ur Leukocyte Esterase MODERATE (NEGATIVE) H 12/02/16 14:56 Urine RBC 5-10 /hpf (0-5) H 12/02/16 14:56 Urine WBC 50-100 /hpf (0-5) H 12/02/16 14:56 Ur Epithelial Cells FEW /lpf (FEW) 12/02/16 14:56 Triple Phos Crystals MODERATE /hpf (FEW) 12/02/16 14:56 Urine Bacteria MANY /hpf (NONE SEEN) 12/02/16 14:56 Urine Osmolality 488 mOsmol/kg 12/03/16 06:30 Ur Random Sodium 75 mmol/L 12/03/16 06:30 Urine Creatinine 49.0 mg/dl (28.0-217.0) 12/03/16 06:30 Blood Type O POSITIVE 12/02/16 05:05 Antibody Screen NEGATIVE 12/02/16 05:05 Crossmatch See Detail 12/02/16 05:05 - Physical Exam Vitals and I&O: Vital Signs Temp 98.0 F 12/06/16 12:00 Pulse 88 12/06/16 12:58 Resp 19 12/06/16 12:00 BP 110/57 12/06/16 12:00 Pulse Ox 100 12/06/16 12:58 Intake & Output 12/05/16 12/06/16 12/06/16 18:59 06:59 18:59 Intake Total 388.333 300 Output Total 650 650 Balance -261.667 -350 Weight (lbs) 53.07 kg 53.07 kg Intake: Intake, IV Amount 338.333 200 KCL 20mEq/100mL Premix 20 88.333 meq In 100 ml @ 50 mls/ hr IV Q2H [facility] Rx#: [id number] Piperacillin Sodium/ 50 100 Tazobact 2.25 gm In Dextrose 5% 50 ml @ 100 mls/hr IV Q8H [facility] Rx#: [id number] metroNIDAZOLE 500mg/NS 200 100 100mL 500 mg In Premix Fluid 1 bag @ 100 mls/hr IV Q8H [facility] Rx#:[id number] Other 50 100 Output: Urine 650 650 Stool 0 Other: # Bowel Movements 0 Active Medications: Current Medications Acetaminophen (Tylenol) 650 mg PO Q6H PRN PRN Reason: Mild Pain or Fever >101 Stop: 01/31/17 11:18 Albuterol/Ipratropium (Duoneb Neb) 3 ml HHN Q6HRT [facility] Stop: 02/04/17 12:59 Last Admin: 12/06/16 12:57 Dose: 3 ml Albuterol/Ipratropium (Duoneb Neb) 3 ml HHN Q2HRT PRN PRN Reason: Wheezing Stop: 02/04/17 10:02 Last Admin: 12/06/16 10:23 Dose: 3 ml Bisacodyl (Dulcolax 5 Mg Ec Tab) 10 mg PO BID [facility] Stop: 01/31/17 16:59 Last Admin: 12/06/16 09:07 Dose: Not Given Chlorhexidine Gluconate (Peridex) 15 ml MM 0800,1999 [facility] Stop: 02/03/17 19:59 Last Admin: 12/06/16 09:00 Dose: 15 ml Epoetin Esequiel (Epogen) 10,000 units SUBQ TuThSa [facility] Stop: 02/01/17 14:29 Last Admin: 12/03/16 16:01 Dose: 10,000 units Hydromorphone HCl (Dilaudid) 1 mg IVP Q6HR PRN PRN Reason: Pain (Moderate-Severe) Stop: 02/04/17 08:11 Last Admin: 12/06/16 10:14 Dose: 1 mg Piperacillin Sod/Tazobactam (Sod 2.25 gm/ Dextrose) 50 mls @ 100 mls/hr IV Q8H [facility] Stop: 02/03/17 10:59 Last Admin: 12/06/16 11:32 Dose: 100 mls/hr Metronidazole 500 mg/ (Miscellaneous) 100 mls @ 100 mls/hr IV Q8H [facility] Stop: 02/03/17 09:59 Last Admin: 12/06/16 09:59 Dose: 100 mls/hr Dextrose (D5w) 1,000 mls @ 100 mls/hr IV .Q10H [facility] Stop: 02/04/17 09:29 Last Admin: 12/06/16 09:59 Dose: 100 mls/hr Insulin Aspart (Novolog Insulin Sliding Scale) 0 units SUBQ ACHS [facility] PRN Reason: Protocol Stop: 01/31/17 07:29 Last Admin: 12/06/16 11:51 Dose: Not Given Insulin Detemir (Levemir Insulin) 10 units SUBQ HS [facility] PRN Reason: Protocol Stop: 02/03/17 20:59 Last Admin: 12/05/16 21:31 Dose: 10 unit Miscellaneous (Vte Chemical Prophylaxis Screen/ Admission) 1 [facility] PRN PRN PRN Reason: PROTOCOL Stop: 01/31/17 13:38 Miscellaneous (Clinical Monitoring) 1 [facility] DAILY PRN PRN Reason: RENAL Stop: 02/04/17 08:05 Pantoprazole Sodium (Protonix) 40 mg IVP DAILY [facility] Stop: 02/01/17 08:59 Last Admin: 12/06/16 09:07 Dose: 40 mg Sodium Bicarbonate (Sodium Bicarbonate) 650 mg PO BID [facility] PRN Reason: Protocol Stop: 01/31/17 16:59 Last Admin: 12/06/16 09:07 Dose: 650 mg General: No acute distress, Other (Patient is awake, restless trying to take off tubes.) HEENT: Atraumatic, Mucous membr. moist/pink, Other (Patient is intubated) Neck: Supple, +2 carotid pulse wo bruit Cardiovascular: Regular rate, Normal S1, Normal S2 Lungs: Clear to auscultation, Other (few rhonchi) Abdomen: Bowel sounds, Soft, Other (PEG in place, Colostomy in place) Extremities: Other (No edema), no Edema Neurological: Sensation intact, Other (Non ambulatory) Skin: Other (Decubit sacral ulcer stage IV), no Significant lesion Psych/Mental Status: Mood NL, Other (Awake, alert, restless, intubated) - Procedures Procedures: Procedures Procedure Code Date BYPASS DESCENDING COLON TO CUTANEOUS, OPEN APPROACH [id number] 12/02/16 COLOSTOMY 23064 12/02/16 CHAGO BONE 20 SQ CM/< 07002 12/02/16 CHAGO MUSC/FASCIA 20 SQ CM/< 36895 10/24/16 CHAGO SUBQ TISSUE 20 SQ CM/< 25374 12/02/16 EXCISION OF L FOOT SUBCU/FASCIA, OPEN APPROACH [id number] 12/02/16 EXCISION OF LEFT HIP MUSCLE, OPEN APPROACH [id number] 10/24/16 EXCISION OF LEFT PELVIC BONE, OPEN APPROACH [id number] 12/02/16 EXCISION OF R FOOT SUBCU/FASCIA, OPEN APPROACH [id number] 12/02/16 Assessment/Plan - Problem List Patient Problems: All Active Problems POOR ORAL INTAKE AND SWALLOWING (Acute) SACRAL AND BILATERAL BUTTOCK SKIN ULCERS (Acute) - Assessment Assessment: Bryan on CKD dehydration FTT 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 Anemia CKD Left hip ulcer s/p debridement w/ Vac B/L heel ulcers s/p debridement s/p Diverting colostomy - Plan Plan: Lab - Result Diagrams 12/03/16 05:35 12/03/16 05:35 Current Medications Acetaminophen (Tylenol) 650 mg PO Q6H PRN PRN Reason: Pain or Fever >101 Stop: 01/31/17 11:18 Bisacodyl (Dulcolax 5 Mg Ec Tab) 10 mg PO BID [facility] Stop: 01/31/17 16:59 Last Admin: 12/03/16 11:07 Dose: 10 mg Dextrose (D5w) 1,000 mls @ 125 mls/hr IV .Q8H [facility] Stop: 02/01/17 14:14 Insulin Aspart (Novolog Insulin Sliding Scale) 0 units SUBQ ACHS [facility] PRN Reason: Protocol Stop: 01/31/17 07:29 Last Admin: 12/03/16 12:32 Dose: 9 units Miscellaneous (Vte Chemical Prophylaxis Screen/ Admission) 1 [facility] PRN PRN PRN Reason: PROTOCOL Stop: 01/31/17 13:38 Pantoprazole Sodium (Protonix) 40 mg IVP DAILY [facility] Stop: 02/01/17 08:59 Last Admin: 12/03/16 11:07 Dose: 40 mg Sodium Bicarbonate (Sodium Bicarbonate) 650 mg PO BID [facility] PRN Reason: Protocol Stop: 01/31/17 16:59 Last Admin: 12/03/16 11:07 Dose: 650 mg Lab - Result Diagrams 12/06/16 04:40 12/06/16 04:40 kidney fnc gradually improving back to D5W 100ml/hr w/ increase in Na Had placement of PEG start feeding today w/ glucerna @ 20ml/hr start epo Hgb down to 7.9 up to 10.2 after transfusion continue IVF, start basal insulin Nutritional Asmnt/Malnutr-PDOC - Dietary Evaluation Malnutrition Findings (Please click <Entered> for more info): Nutritional Asmnt/Malnutrition Start: 12/02/16 14: 44 Text: Status: Complete Freq: Document 12/02/16 14:44 GSUN (Rec: 12/02/16 15:19 GSUN [id number]) Nutritional Asmnt/Malnutrition Patient General Information Nutritional Screening Consult Diagnosis AKF, sacral decubitus ulcer stage IV, HTN, DM, dementia, chronic anemia Pertinent Medical Hx/Surgical Hx CAD, CVA, dementia, psychosis, muscle atrophy, AKF, DM, decubitus ulcer stage IV Subjective Information 81 year old female from SNF. RD consult for low Elliot and elevated blood glucose. Pt was awake, unable to provide nutrition hx. Family at bedside, spoke to family and RN Loren regarding nutrition plan of care, PEG placement consent obtained. Family has no other questions at this time. 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 Per nursing adm notes , 4-5lb wt loss in 2 weeks. Per family, unaware of UBW, aware of recent wt loss, stated pt stopped eating ~3-4 days ago. Loose skin, moderate to severe muslce fat wasting to chest and clavicles. Current Diet Order/ Nutrition Support NPO Pertinent Medications Dulcolax, D5-0.45ns, Novolog Pertinent Labs 12/01: A1c 9H 12/02: sodium 173H, potassium 5.3H, BUN 169H, creatinie 5.8H , glucose 238H, calcium 10.8H Nutritional Hx/Data Height 1.52 m Height (Calculated Centimeters) 152.4 Current Weight (lbs) 43.545 kg Weight (Calculated Kilograms) 43.5 Weight (Calculated Grams) 49630.9 [place] Body Weight 100 Recent Weight Change Yes Weight Status Approriate GI Symptoms Usual diet at home [facility]: [facility] Skin Integrity/Comment: Elliot 11. Sacral decubitus ulcer stage IV. Estimated Nutritional Goals Calories/Kcals/Kg IBW 100lb/45.5kg Kcals Calculated 1365-1593kcal (30-35kcal/kg) Protein Calculated 68-73g (1.4-1.6g/kg, ulcer vs renal, ?HD) Fluid: ml Per MD Nutritional Problem 3. Problem Problem Altered nutrition related laboratory values related to Etiology DM aeb Signs/Symptoms: A1c 9H, glucose 238H 2. Problem Problem Increased kcal and prot needs related to Etiology skin integrity, recent weight loss aeb Signs/Symptoms: Sacral decubitus ulcer stage IV, wt loss 4-5lb in 2 weeks per nursing adm notes, moderate to seevre muslce/fat wasting to chest and clavicles 1. Problem Problem Impaired nutrient utilization related to Etiology acute kidney injury aeb Signs/Symptoms: potassium 5.3H, BUN 169H, creatinie 5.8H, calcium 10.8H Intervention/Recommendation Comments 1. Discussed enteral nutrition with family. Family has no further questions at this time . 2. When medically feasible to initiate feeding, recommend Novasource Renal at 30ml/hr x 24hrs, providing 720ml total volume, 1440kcal, 65g protein. Initiate at 10ml/hr for first 24 hrs, monitor for refeeding syndrome and tolerance, increase by 5ml/hr q12hrs until goal. 3. Recommend 1 packet Arginaid daily via tube for wound healing. 4. Monitor weight closely. Hx 4-5lb wt loss in 2 weeks per nursing adm note. Expected Outcomes/Goals Expected Outcomes/Goals 1. Pt to meet at least 75% of estimated nutritinoal eneds on tube feeding with tolerance.
--- NOTE | 2016-12-06 14:29 | General Progress Note ---
Subjective - Review of Systems Service Date: 12/06/16 Subjective: more awake, comfortable, on vent Objective - Results Result Diagrams: 12/06/16 04:40 12/06/16 04:40 Recent Labs: Laboratory Last Values WBC 9.4 Th/cmm (4.8-10.8) 12/06/16 04:40 Corrected WBC (auto) 8.8 Th/cmm (4.8-10.8) 12/01/16 18:25 RBC 3.21 Mil/cmm (3.80-5.20) L 12/06/16 04:40 Hgb 9.3 gm/dL (12-16) L 12/06/16 04:40 Hct 28.2 % (41.0-60) L 12/06/16 04:40 MCV 88.0 fl (81-100) 12/06/16 04:40 MCH 28.9 pg (27.0-31.0) 12/06/16 04:40 MCHC Differential 32.9 pg (28.0-36.0) 12/06/16 04:40 RDW 18.0 % (11.5-20.0) 12/06/16 04:40 Plt Count 79 Th/cmm (150-400) L 12/06/16 04:40 MPV 14.1 fl 12/06/16 04:40 Neutrophils % 82.5 % (40.0-80.0) H 12/06/16 04:40 Band Neutrophils % 8 % (0-10) 12/04/16 04:50 Lymphocytes % 11.3 % (20.0-50.0) L 12/06/16 04:40 Monocytes % 4.8 % (2.0-10.0) 12/06/16 04:40 Eosinophils % 1.2 % (0.0-5.0) 12/06/16 04:40 Basophils % 0.2 % (0.0-2.0) 12/06/16 04:40 Neutrophils (Manual) 77 % (40-80) 12/04/16 04:50 Lymphocytes 10 % (20-50) L 12/04/16 04:50 Monocytes 5 % (2-10) 12/04/16 04:50 Eosinophils 3 % (0-5) 12/03/16 05:35 Nucleated RBCs 5.0 % (0-0) H 12/01/16 18:25 Atypical Lymphocytes 1 % 12/01/16 18:25 Platelet Estimate SLIGHT DECREASED (NORMAL) 12/04/16 04:50 Platelet Morphology NORMAL (NORMAL) 12/01/16 18:25 Anisocytosis 2+ 12/03/16 05:35 RBC Morph Micro Appear ABNORMAL (NORMAL) 12/01/16 18:25 Eos Smear Source URINE 12/03/16 06:30 Eos Smear Total Cells NONE SEEN (NONE SEEN) 12/03/16 06:30 PT 11.2 SECONDS (9.5-11.5) 12/03/16 05:35 INR 1.08 (0.5-1.4) 12/03/16 05:35 PTT (Actin FS) 19.6 SECONDS (26.0-38.0) L 12/01/16 18:25 Specimen Source Arterial 12/06/16 08:47 Sample Site Left Radial 12/06/16 08:47 pH 7.35 (7.35-7.45) 12/06/16 08:47 pCO2 19.0 mmHg (35.0-45.0) L* 12/06/16 08:47 pO2 177.0 mmHg (80.0-100.0) H 12/06/16 08:47 HCO3 14.9 mEq/L (20.0-26.0) L 12/06/16 08:47 Base Excess -12.9 mEq/L (-3.0-3.0) L 12/06/16 08:47 O2 Saturation 100.0 % (92.0-100.0) 12/06/16 08:47 Isidro Test Positive 12/06/16 08:47 Vent Rate 8 12/06/16 08:47 Inspired O2 40 12/06/16 08:47 Tidal Volume 450 12/06/16 08:47 PEEP 5 12/06/16 08:47 Pressure (ins/psv/peep) 10 12/06/16 08:47 Critical Value O. Storm 12/06/16 08:47 Sodium 152 mEq/L (136-145) H 12/06/16 04:40 Potassium 3.8 mEq/L (3.5-5.1) 12/06/16 04:40 Chloride 128 mEq/L (98-107) H 12/06/16 04:40 Carbon Dioxide 13.8 mEq/L (21.0-31.0) L 12/06/16 04:40 Anion Gap 14.0 (7.0-16.0) 12/06/16 04:40 BUN 85 mg/dL (7-25) H* 12/06/16 04:40 Creatinine 3.2 mg/dL (0.6-1.2) H 12/06/16 04:40 Est GFR ( Amer) TNP 12/06/16 04:40 Est GFR (Non-Af Amer) TNP 12/06/16 04:40 BUN/Creatinine Ratio 26.6 12/06/16 04:40 Glucose 195 mg/dL (70-105) H 12/06/16 12:08 POC Glucose 52 MG/DL (70 - 105) L 12/06/16 11:28 Hemoglobin A1c % 9.0 % (4.0-6.0) H 12/01/16 18:25 Whole Bld Lactic Acid 2.84 mmol/L (0.60-1.99) H* 12/05/16 12:05 Uric Acid 11.6 mg/dL (2.3-6.6) H 12/03/16 05:35 Calcium 8.8 mg/dL (8.6-10.3) 12/06/16 04:40 Magnesium 2.7 mg/dL (1.9-2.7) 12/03/16 05:35 Total Bilirubin 0.5 mg/dL (0.3-1.0) 12/05/16 10:05 AST 8 U/L (13-39) L 12/05/16 10:05 ALT 3 U/L (7-52) L 12/05/16 10:05 Alkaline Phosphatase 83 U/L (34-104) 12/05/16 10:05 Total Protein 5.2 gm/dL (6.0-8.3) L 12/05/16 10:05 Albumin 2.4 gm/dL (3.7-5.3) L 12/05/16 10:05 Globulin 2.8 gm/dL 12/05/16 10:05 Albumin/Globulin Ratio 0.9 (1.0-1.8) L 12/05/16 10:05 TSH 2.49 uIU/ml (0.34-5.60) 12/03/16 05:35 Urine Source SOTO PORT 12/02/16 14:56 Urine Color YELLOW 12/02/16 14:56 Urine Clarity HAZY (CLEAR) 12/02/16 14:56 Urine pH 8.0 (4.6 - 8.0) 12/02/16 14:56 Ur Specific Tully 1.015 (1.005-1.030) 12/02/16 14:56 Urine Protein 100 mg/dL (NEGATIVE) H 12/02/16 14:56 Urine Glucose (UA) 500 mg/dL (NEGATIVE) H 12/02/16 14:56 Urine Ketones NEGATIVE mg/dL (NEGATIVE) 12/02/16 14:56 Urine Blood MODERATE (NEGATIVE) H 12/02/16 14:56 Urine Nitrate POSITIVE (NEGATIVE) H 12/02/16 14:56 Urine Bilirubin NEGATIVE (NEGATIVE) 12/02/16 14:56 Urine Urobilinogen 0.2 E.U./dL (0.2 - 1.0) 12/02/16 14:56 Ur Leukocyte Esterase MODERATE (NEGATIVE) H 12/02/16 14:56 Urine RBC 5-10 /hpf (0-5) H 12/02/16 14:56 Urine WBC 50-100 /hpf (0-5) H 12/02/16 14:56 Ur Epithelial Cells FEW /lpf (FEW) 12/02/16 14:56 Triple Phos Crystals MODERATE /hpf (FEW) 12/02/16 14:56 Urine Bacteria MANY /hpf (NONE SEEN) 12/02/16 14:56 Urine Osmolality 488 mOsmol/kg 12/03/16 06:30 Ur Random Sodium 75 mmol/L 12/03/16 06:30 Urine Creatinine 49.0 mg/dl (28.0-217.0) 12/03/16 06:30 Blood Type O POSITIVE 12/02/16 05:05 Antibody Screen NEGATIVE 12/02/16 05:05 Crossmatch See Detail 12/02/16 05:05 - Physical Exam Vitals and I&O: Vital Signs Temp 98.0 F 12/06/16 12:00 Pulse 88 12/06/16 12:58 Resp 19 12/06/16 12:00 BP 110/57 12/06/16 12:00 Pulse Ox 100 12/06/16 12:58 Intake & Output 12/05/16 12/06/16 12/06/16 18:59 06:59 18:59 Intake Total 388.333 300 Output Total 650 650 Balance -261.667 -350 Weight (lbs) 53.07 kg 53.07 kg Intake: Intake, IV Amount 338.333 200 KCL 20mEq/100mL Premix 20 88.333 meq In 100 ml @ 50 mls/ hr IV Q2H [facility] Rx#: [id number] Piperacillin Sodium/ 50 100 Tazobact 2.25 gm In Dextrose 5% 50 ml @ 100 mls/hr IV Q8H [facility] Rx#: [id number] metroNIDAZOLE 500mg/NS 200 100 100mL 500 mg In Premix Fluid 1 bag @ 100 mls/hr IV Q8H [facility] Rx#:[id number] Other 50 100 Output: Urine 650 650 Stool 0 Other: # Bowel Movements 0 Active Medications: Current Medications Acetaminophen (Tylenol) 650 mg PO Q6H PRN PRN Reason: Mild Pain or Fever >101 Stop: 01/31/17 11:18 Albuterol/Ipratropium (Duoneb Neb) 3 ml HHN Q6HRT [facility] Stop: 02/04/17 12:59 Last Admin: 12/06/16 12:57 Dose: 3 ml Albuterol/Ipratropium (Duoneb Neb) 3 ml HHN Q2HRT PRN PRN Reason: Wheezing Stop: 02/04/17 10:02 Last Admin: 12/06/16 10:23 Dose: 3 ml Bisacodyl (Dulcolax 5 Mg Ec Tab) 10 mg PO BID [facility] Stop: 01/31/17 16:59 Last Admin: 12/06/16 09:07 Dose: Not Given Chlorhexidine Gluconate (Peridex) 15 ml MM 0800,1999 [facility] Stop: 02/03/17 19:59 Last Admin: 12/06/16 09:00 Dose: 15 ml Epoetin Esequiel (Epogen) 10,000 units SUBQ TuThSa [facility] Stop: 02/01/17 14:29 Last Admin: 12/03/16 16:01 Dose: 10,000 units Hydromorphone HCl (Dilaudid) 1 mg IVP Q6HR PRN PRN Reason: Pain (Moderate-Severe) Stop: 02/04/17 08:11 Last Admin: 12/06/16 10:14 Dose: 1 mg Piperacillin Sod/Tazobactam (Sod 2.25 gm/ Dextrose) 50 mls @ 100 mls/hr IV Q8H BRIELLE Stop: 02/03/17 10:59 Last Admin: 12/06/16 11:32 Dose: 100 mls/hr Metronidazole 500 mg/ (Miscellaneous) 100 mls @ 100 mls/hr IV Q8H [facility] Stop: 02/03/17 09:59 Last Admin: 12/06/16 09:59 Dose: 100 mls/hr Dextrose (D5w) 1,000 mls @ 100 mls/hr IV .Q10H B[facility]ELLE Stop: 02/04/17 09:29 Last Admin: 12/06/16 09:59 Dose: 100 mls/hr Insulin Aspart (Novolog Insulin Sliding Scale) 0 units SUBQ ACHS BRIELLE PRN Reason: Protocol Stop: 01/31/17 07:29 Last Admin: 12/06/16 11:51 Dose: Not Given Insulin Detemir (Levemir Insulin) 10 units SUBQ HS BRIELLE PRN Reason: Protocol Stop: 02/03/17 20:59 Last Admin: 12/05/16 21:31 Dose: 10 unit Miscellaneous (Vte Chemical Prophylaxis Screen/ Admission) 1 [facility] PRN PRN PRN Reason: PROTOCOL Stop: 01/31/17 13:38 Miscellaneous (Clinical Monitoring) 1 [facility] DAILY PRN PRN Reason: RENAL Stop: 02/04/17 08:05 Pantoprazole Sodium (Protonix) 40 mg IVP DAILY BRIELLE Stop: 02/01/17 08:59 Last Admin: 12/06/16 09:07 Dose: 40 mg Sodium Bicarbonate (Sodium Bicarbonate) 650 mg PO BID BRIELLE PRN Reason: Protocol Stop: 01/31/17 16:59 Last Admin: 12/06/16 09:07 Dose: 650 mg General: No acute distress, Other (Patient is awake, restless trying to take off tubes.) HEENT: Atraumatic, Mucous membr. moist/pink, Other (Patient is intubated) Neck: Supple, +2 carotid pulse wo bruit Cardiovascular: Regular rate, Normal S1, Normal S2 Lungs: Clear to auscultation, Other (few rhonchi) Abdomen: Bowel sounds, Soft, Other (PEG in place, Colostomy in place) Extremities: Other (No edema), no Edema Neurological: Sensation intact, Other (Non ambulatory) Skin: Other (Decubit sacral ulcer stage IV), no Significant lesion Psych/Mental Status: Mood NL, Other (Awake, alert, restless, intubated) - Procedures Procedures: Procedures Procedure Code Date BYPASS DESCENDING COLON TO CUTANEOUS, OPEN APPROACH [id number] 12/02/16 COLOSTOMY 97900 12/02/16 CHAGO BONE 20 SQ CM/< 82805 12/02/16 CHAGO MUSC/FASCIA 20 SQ CM/< 34931 10/24/16 CHAGO SUBQ TISSUE 20 SQ CM/< 79057 12/02/16 EXCISION OF L FOOT SUBCU/FASCIA, OPEN APPROACH [id number] 12/02/16 EXCISION OF LEFT HIP MUSCLE, OPEN APPROACH [id number] 10/24/16 EXCISION OF LEFT PELVIC BONE, OPEN APPROACH [id number] 12/02/16 EXCISION OF R FOOT SUBCU/FASCIA, OPEN APPROACH [id number] 12/02/16 Assessment/Plan - Problem List Patient Problems: All Active Problems POOR ORAL INTAKE AND SWALLOWING (Acute) SACRAL AND BILATERAL BUTTOCK SKIN ULCERS (Acute) - Assessment Assessment: Bryan on CKD dehydration FTT 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 Anemia CKD Left hip ulcer s/p debridement w/ Vac B/L heel ulcers s/p debridement s/p Diverting colostomy - Plan Plan: Lab - Result Diagrams 12/03/16 05:35 12/03/16 05:35 Current Medications Acetaminophen (Tylenol) 650 mg PO Q6H PRN PRN Reason: Pain or Fever >101 Stop: 01/31/17 11:18 Bisacodyl (Dulcolax 5 Mg Ec Tab) 10 mg PO BID BRIELLE Stop: 01/31/17 16:59 Last Admin: 12/03/16 11:07 Dose: 10 mg Dextrose (D5w) 1,000 mls @ 125 mls/hr IV .Q8H BRIELLE Stop: 02/01/17 14:14 Insulin Aspart (Novolog Insulin Sliding Scale) 0 units SUBQ ACHS BRIELLE PRN Reason: Protocol Stop: 01/31/17 07:29 Last Admin: 12/03/16 12:32 Dose: 9 units Miscellaneous (Vte Chemical Prophylaxis Screen/ Admission) 1 [facility] PRN PRN PRN Reason: PROTOCOL Stop: 01/31/17 13:38 Pantoprazole Sodium (Protonix) 40 mg IVP DAILY BRIELLE Stop: 02/01/17 08:59 Last Admin: 12/03/16 11:07 Dose: 40 mg Sodium Bicarbonate (Sodium Bicarbonate) 650 mg PO BID BRIELLE PRN Reason: Protocol Stop: 01/31/17 16:59 Last Admin: 12/03/16 11:07 Dose: 650 mg Lab - Result Diagrams 12/06/16 04:40 12/06/16 04:40 kidney fnc gradually improving back to D5W 100ml/hr w/ increase in Na Had placement of PEG start feeding today w/ glucerna @ 20ml/hr start epo Hgb down to 7.9 up to 10.2 after transfusion continue IVF, start basal insulin Nutritional Asmnt/Malnutr-PDOC - Dietary Evaluation Malnutrition Findings (Please click <Entered> for more info): Nutritional Asmnt/Malnutrition Start: 12/02/16 14: 44 Text: Status: Complete Freq: Document 12/02/16 14:44 GSUN (Rec: 12/02/16 15:19 GSUN [id number]) Nutritional Asmnt/Malnutrition Patient General Information Nutritional Screening Consult Diagnosis AKF, sacral decubitus ulcer stage IV, HTN, DM, dementia, chronic anemia Pertinent Medical Hx/Surgical Hx CAD, CVA, dementia, psychosis, muscle atrophy, AKF, DM, decubitus ulcer stage IV Subjective Information 81 year old female from SNF. RD consult for low Elliot and elevated blood glucose. Pt was awake, unable to provide nutrition hx. Family at bedside, spoke to family and RN Loren regarding nutrition plan of care, PEG placement consent obtained. Family has no other questions at this time. Elevated BUN, travel pta, K, family reported pt is not on dialysis, "possible HD today" per H&P. Per nursing adm notes , 4-5lb wt loss in 2 weeks. Per family, unaware of UBW, aware of recent wt loss, stated pt stopped eating ~3-4 days ago. Loose skin, moderate to severe muslce fat wasting to chest and clavicles. Current Diet Order/ Nutrition Support NPO Pertinent Medications Dulcolax, D5-0.45ns, Novolog Pertinent Labs 12/01: A1c 9H 12/02: sodium 173H, potassium 5.3H, BUN 169H, creatinie 5.8H , glucose 238H, calcium 10.8H Nutritional Hx/Data Height 1.52 m Height (Calculated Centimeters) 152.4 Current Weight (lbs) 43.545 kg Weight (Calculated Kilograms) 43.5 Weight (Calculated Grams) [address]67.[address] [place] Body Weight 100 Recent Weight Change Yes Weight Status Approriate GI Symptoms Usual diet at home [facility]: pureed, [facility] Skin Integrity/Comment: Elliot 11. Sacral decubitus ulcer stage IV. Estimated Nutritional Goals Calories/Kcals/Kg IBW 100lb/45.5kg Kcals Calculated 1365-1593kcal (30-35kcal/kg) Protein Calculated 68-73g (1.4-1.6g/kg, ulcer vs renal, ?HD) Fluid: ml Per MD Nutritional Problem 3. Problem Problem Altered nutrition related laboratory values related to Etiology DM aeb Signs/Symptoms: A1c 9H, glucose 238H 2. Problem Problem Increased kcal and prot needs related to Etiology skin integrity, recent weight loss aeb Signs/Symptoms: Sacral decubitus ulcer stage IV, wt loss 4-5lb in 2 weeks per nursing adm notes, moderate to seevre muslce/fat wasting to chest and clavicles 1. Problem Problem Impaired nutrient utilization related to Etiology acute kidney injury aeb Signs/Symptoms: potassium 5.3H, BUN 169H, creatinie 5.8H, calcium 10.8H Intervention/Recommendation Comments 1. Discussed enteral nutrition with family. Family has no further questions at this time . 2. When medically feasible to initiate feeding, recommend Novasource Renal at 30ml/hr x 24hrs, providing 720ml total volume, 1440kcal, 65g protein. Initiate at 10ml/hr for first 24 hrs, monitor for refeeding syndrome and tolerance, increase by 5ml/hr q12hrs until goal. 3. Recommend 1 packet Arginaid daily via tube for wound healing. 4. Monitor weight closely. Hx 4-5lb wt loss in 2 weeks per nursing adm note. Expected Outcomes/Goals Expected Outcomes/Goals 1. Pt to meet at least 75% of estimated nutritinoal eneds on tube feeding with tolerance.
[2016-12-06] MEDS: Epoetin Alfa 20000 Units/mL Vial SUBQ SCH (17:01)
[2016-12-06] MEDS: Insulin Detemir 100 units/mL 10mL Vial SUBQ SCH (21:02)
--- NOTE | 2016-12-06 21:08 | Consultation ---
DATE OF CONSULTATION: 12/05/[address] La. Thank you very much, Dr. La, for this consultation. HISTORY OF PRESENT ILLNESS: This is an 81-year-old female who underwent surgery with diverting colostomy and debridement of left hip decubitus ulcers. The patient was kept on the ventilator postoperatively. We were called for further evaluation. The patient appears to be okay and comfortable, responding more, and waking up more, does not appear in acute distress. According to the daughters, son and , there is no history of lung problem. The patient is a nonsmoker. PAST MEDICAL HISTORY: History of diabetes, dysphagia, CVA. 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 REVIEW OF SYSTEMS: Unable to obtain because of the patient's condition. PHYSICAL EXAMINATION: GENERAL: The patient is intubated and sedated. VITAL SIGNS: Temperature 97.2, pulse ____, respirations 16, blood pressure is 100/43, saturation 100%. HEENT: Atraumatic, normocephalic. Pupils react to light and accommodation. Ears, nose, and throat are normal. NECK: Supple. No JVD. CHEST: There are good breath sounds bilaterally. No wheezing or crackles. HEART: Regular rate and rhythm. ABDOMEN: Soft. EXTREMITIES: Lower extremities, no edema. LABORATORY DATA: WBC is 8.9, hemoglobin 10.2, hematocrit 31.2, platelets 75. Sodium 145, potassium 2.6, BUN 97, creatinine 3.5. Lactic acid is 2.84. IMPRESSION: 1. Respiratory failure. 2. Status post diverting colostomy and decubitus ulcer debridement surgery. 3. Acute renal failure. 4. Dehydration. 5. Dysphagia. 6. Pneumonia, right lower lobe. PLAN: 1. Continue IV hydration. 2. Ventilator support. 3. Start weaning as tolerated, hopefully we can extubate the patient soon. Thank you very much for this consultation. I will follow the patient with you. JOB# [id number]
[2016-12-07] MEDS: Albuterol/Ipratropium Neb 3 ML AERS HHN SCH ×4 (01:00→19:11)
[2016-12-07] MEDS: HYDROmorphone 1 mg/mL 1mL Syr IVP PRN (01:35)
[2016-12-07] MEDS: metroNIDAZOLE 500mg/NS 100mL 500 MG in Premix Fluid 1 BAG IV SCH ×3 (01:36→17:08)
[2016-12-07 05:06] LABS: % EOSINOPHILS 1.7 % (0.0-5.0); % LYMPHOCYTES 10.5 % (20.0-50.0); % MONOCYTES 4.7 % (2.0-10.0); % NEUTROPHILS 83.1 % (40.0-80.0); EOSINOPHILE ABSOLUTE 0.2 Th/cmm (0.1-0.4); HEMATOCRIT 27.4 % (41.0-60); MEAN CELL VOLUME 87.4 fl (81-100); MEAN CORPUSCULAR HEMOGLOBIN 28.7 pg (27.0-31.0); MEAN CORPUSCULAR HGB CONC 32.9 pg (28.0-36.0); MEAN PLATELET VOLUME 14.2 fl; MONOCYTE ABSOLUTE 0.4 Th/cmm (0.3-1.0); NEUTROPHILE ABSOLUTE 7.5 Th/cmm (1.8-8.0); PLATELET COUNT 77 Th/cmm (150-400); RED BLOOD COUNT 3.13 Mil/cmm (3.80-5.20); RED CELL DISTRIBUTION WIDTH 19.3 % (11.5-20.0); WHITE BLOOD COUNT 9.1 Th/cmm (4.8-10.8)
[2016-12-07 05:24] LABS: ANION GAP 13.5 (7.0-16.0); BUN - UREA NITROGEN 75 mg/dL (7-25); CALCIUM SERUM 8.5 mg/dL (8.6-10.3); CARBON DIOXIDE 15.8 mEq/L (21.0-31.0); CHLORIDE 123 mEq/L (98-107); CREATININE - SERUM 2.9 mg/dL (0.6-1.2); GLUCOSE 195 mg/dL (70-105); POTASSIUM SERUM 3.3 mEq/L (3.5-5.1); SODIUM SERUM 149 mEq/L (136-145)
[2016-12-07] MEDS: INSULIN ASPART SLIDING SCALE 100 UNITS/ML UNIT SUBQ SCH ×4 (06:32→20:33)
[2016-12-07] MEDS: Chlorhexidine Gluconate 0.12% 15mL Mouthwash MM SCH ×2 (08:43→20:33)
[2016-12-07] MEDS: Venelex 60gm Tube TP SCH (08:43)
[2016-12-07] MEDS: Multivitamin w/ Minerals Tab PO SCH (08:47)
--- NOTE | 2016-12-07 08:58 | Diagnostic Imaging Report ---
Portable chest x-ray HISTORY: Shortness of breath Compared with the prior exam of 12/06/2016, faint infiltrate is noted in the right perihilar/right upper lobe region. Changes consistent with pneumonia. An endotracheal tube tip is approximately 1.0 cm above the priscila. This may be pulled back approximately 1.0 cm. IMPRESSION: 1. Faint infiltrate right upper lobe. Changes consistent with pneumonia. 2. Endotracheal tube tip approximately 1.0 cm above the priscila.
--- NOTE | 2016-12-07 09:04 | General Progress Note ---
Subjective - Review of Systems Service Date: 12/07/16 Subjective: Patient is sleeping but arousable, non verbal. Objective - Results Result Diagrams: 12/07/16 04:25 12/07/16 04:25 Recent Labs: Laboratory Last Values WBC 9.1 Th/cmm (4.8-10.8) 12/07/16 04:25 Corrected WBC (auto) 8.8 Th/cmm (4.8-10.8) 12/01/16 18:25 RBC 3.13 Mil/cmm (3.80-5.20) L 12/07/16 04:25 Hgb 9.0 gm/dL (12-16) L 12/07/16 04:25 Hct 27.4 % (41.0-60) L 12/07/16 04:25 MCV 87.4 fl (81-100) 12/07/16 04:25 MCH 28.7 pg (27.0-31.0) 12/07/16 04:25 MCHC Differential 32.9 pg (28.0-36.0) 12/07/16 04:25 RDW 19.3 % (11.5-20.0) 12/07/16 04:25 Plt Count 77 Th/cmm (150-400) L 12/07/16 04:25 MPV 14.2 fl 12/07/16 04:25 Neutrophils % 83.1 % (40.0-80.0) H 12/07/16 04:25 Band Neutrophils % 8 % (0-10) 12/04/16 04:50 Lymphocytes % 10.5 % (20.0-50.0) L 12/07/16 04:25 Monocytes % 4.7 % (2.0-10.0) 12/07/16 04:25 Eosinophils % 1.7 % (0.0-5.0) 12/07/16 04:25 Basophils % 0.0 % (0.0-2.0) 12/07/16 04:25 Neutrophils (Manual) 77 % (40-80) 12/04/16 04:50 Lymphocytes 10 % (20-50) L 12/04/16 04:50 Monocytes 5 % (2-10) 12/04/16 04:50 Eosinophils 3 % (0-5) 12/03/16 05:35 Nucleated RBCs 5.0 % (0-0) H 12/01/16 18:25 Atypical Lymphocytes 1 % 12/01/16 18:25 Platelet Estimate SLIGHT DECREASED (NORMAL) 12/04/16 04:50 Platelet Morphology NORMAL (NORMAL) 12/01/16 18:25 Anisocytosis 2+ 12/03/16 05:35 RBC Morph Micro Appear ABNORMAL (NORMAL) 12/01/16 18:25 Eos Smear Source URINE 12/03/16 06:30 Eos Smear Total Cells NONE SEEN (NONE SEEN) 12/03/16 06:30 PT 11.2 SECONDS (9.5-11.5) 12/03/16 05:35 INR 1.08 (0.5-1.4) 12/03/16 05:35 PTT (Actin FS) 19.6 SECONDS (26.0-38.0) L 12/01/16 18:25 Specimen Source Arterial 12/06/16 08:47 Sample Site Left Radial 12/06/16 08:47 pH 7.35 (7.35-7.45) 12/06/16 08:47 pCO2 19.0 mmHg (35.0-45.0) L* 12/06/16 08:47 pO2 177.0 mmHg (80.0-100.0) H 12/06/16 08:47 HCO3 14.9 mEq/L (20.0-26.0) L 12/06/16 08:47 Base Excess -12.9 mEq/L (-3.0-3.0) L 12/06/16 08:47 O2 Saturation 100.0 % (92.0-100.0) 12/06/16 08:47 Isidro Test Positive 12/06/16 08:47 Vent Rate 8 12/06/16 08:47 Inspired O2 40 12/06/16 08:47 Tidal Volume 450 12/06/16 08:47 PEEP 5 12/06/16 08:47 Pressure (ins/psv/peep) 10 12/06/16 08:47 Critical Value O. Storm 12/06/16 08:47 Sodium 149 mEq/L (136-145) H 12/07/16 04:25 Potassium 3.3 mEq/L (3.5-5.1) L 12/07/16 04:25 Chloride 123 mEq/L (98-107) H 12/07/16 04:25 Carbon Dioxide 15.8 mEq/L (21.0-31.0) L 12/07/16 04:25 Anion Gap 13.5 (7.0-16.0) 12/07/16 04:25 BUN 75 mg/dL (7-25) H 12/07/16 04:25 Creatinine 2.9 mg/dL (0.6-1.2) H 12/07/16 04:25 Est GFR ( Amer) TNP 12/07/16 04:25 Est GFR (Non-Af Amer) TNP 12/07/16 04:25 BUN/Creatinine Ratio 25.9 12/07/16 04:25 Glucose 195 mg/dL (70-105) H 12/07/16 04:25 POC Glucose 262 MG/DL (70 - 105) H 12/06/16 20:57 Hemoglobin A1c % 9.0 % (4.0-6.0) H 12/01/16 18:25 Whole Bld Lactic Acid 2.84 mmol/L (0.60-1.99) H* 12/05/16 12:05 Uric Acid 11.6 mg/dL (2.3-6.6) H 12/03/16 05:35 Calcium 8.5 mg/dL (8.6-10.3) L 12/07/16 04:25 Magnesium 2.7 mg/dL (1.9-2.7) 12/03/16 05:35 Total Bilirubin 0.5 mg/dL (0.3-1.0) 12/05/16 10:05 AST 8 U/L (13-39) L 12/05/16 10:05 ALT 3 U/L (7-52) L 12/05/16 10:05 Alkaline Phosphatase 83 U/L (34-104) 12/05/16 10:05 Total Protein 5.2 gm/dL (6.0-8.3) L 12/05/16 10:05 Albumin 2.4 gm/dL (3.7-5.3) L 12/05/16 10:05 Globulin 2.8 gm/dL 12/05/16 10:05 Albumin/Globulin Ratio 0.9 (1.0-1.8) L 12/05/16 10:05 TSH 2.49 uIU/ml (0.34-5.60) 12/03/16 05:35 Urine Source SOTO PORT 12/02/16 14:56 Urine Color YELLOW 12/02/16 14:56 Urine Clarity HAZY (CLEAR) 12/02/16 14:56 Urine pH 8.0 (4.6 - 8.0) 12/02/16 14:56 Ur Specific [place] 1.015 (1.005-1.030) 12/02/16 14:56 Urine Protein 100 mg/dL (NEGATIVE) H 12/02/16 14:56 Urine Glucose (UA) 500 mg/dL (NEGATIVE) H 12/02/16 14:56 Urine Ketones NEGATIVE mg/dL (NEGATIVE) 12/02/16 14:56 Urine Blood MODERATE (NEGATIVE) H 12/02/16 14:56 Urine Nitrate POSITIVE (NEGATIVE) H 12/02/16 14:56 Urine Bilirubin NEGATIVE (NEGATIVE) 12/02/16 14:56 Urine Urobilinogen 0.2 E.U./dL (0.2 - 1.0) 12/02/16 14:56 Ur Leukocyte Esterase MODERATE (NEGATIVE) H 12/02/16 14:56 Urine RBC 5-10 /hpf (0-5) H 12/02/16 14:56 Urine WBC 50-100 /hpf (0-5) H 12/02/16 14:56 Ur Epithelial Cells FEW /lpf (FEW) 12/02/16 14:56 Triple Phos Crystals MODERATE /hpf (FEW) 12/02/16 14:56 Urine Bacteria MANY /hpf (NONE SEEN) 12/02/16 14:56 Urine Osmolality 488 mOsmol/kg 12/03/16 06:30 Ur Random Sodium 75 mmol/L 12/03/16 06:30 Urine Creatinine 49.0 mg/dl (28.0-217.0) 12/03/16 06:30 Blood Type O POSITIVE 12/02/16 05:05 Antibody Screen NEGATIVE 12/02/16 05:05 Crossmatch See Detail 12/02/16 05:05 - Physical Exam Vitals and I&O: Vital Signs Temp 97.6 F 12/07/16 06:00 Pulse 90 12/07/16 06:57 Resp 14 12/07/16 06:57 BP 135/70 12/07/16 06:57 Pulse Ox 100 12/07/16 08:00 Intake & Output 12/06/16 12/07/16 12/07/16 18:59 06:59 18:59 Intake Total 590 1540 Output Total 503 400 Balance 87 1140 Weight (lbs) 53.07 kg 53.615 kg Intake: Intake, IV Amount 250 1200 Dextrose 5% 1,000 ml @ 1000 100 mls/hr IV .Q10H [facility] Rx#:[id number] Piperacillin Sodium/ 50 100 Tazobact 2.25 gm In Dextrose 5% 50 ml @ 100 mls/hr IV Q8H [facility] Rx#: [id number] metroNIDAZOLE 500mg/NS 200 100 100mL 500 mg In Premix Fluid 1 bag @ 100 mls/hr IV Q8H [facility] Rx#:[id number] Tube Feeding 240 240 Other 100 100 Output: Urine 500 400 Stool 3 0 Active Medications: Current Medications Acetaminophen (Tylenol) 650 mg PO Q6H PRN PRN Reason: Mild Pain or Fever >101 Stop: 01/31/17 11:18 Albuterol/Ipratropium (Duoneb Neb) 3 ml HHN Q6HRT [facility] Stop: 02/04/17 12:59 Last Admin: 12/07/16 06:43 Dose: 3 ml Albuterol/Ipratropium (Duoneb Neb) 3 ml HHN Q2HRT PRN PRN Reason: Wheezing Stop: 02/04/17 10:02 Last Admin: 12/06/16 10:23 Dose: 3 ml Bisacodyl (Dulcolax 5 Mg Ec Tab) 10 mg PO BID [facility] Stop: 01/31/17 16:59 Last Admin: 12/07/16 08:50 Dose: 10 mg Chlorhexidine Gluconate (Peridex) 15 ml MM 08,1999 [facility] Stop: 02/03/17 19:59 Last Admin: 12/07/16 08:43 Dose: 15 ml Epoetin Esequiel (Epogen) 10,000 units SUBQ TuThSa [facility] Stop: 02/01/17 14:29 Last Admin: 12/06/16 17:01 Dose: 10,000 units Hydromorphone HCl (Dilaudid) 1 mg IVP Q6HR PRN PRN Reason: Pain (Moderate-Severe) Stop: 02/04/17 08:11 Last Admin: 12/07/16 01:35 Dose: 1 mg Piperacillin Sod/Tazobactam (Sod 2.25 gm/ Dextrose) 50 mls @ 100 mls/hr IV Q8H [facility] Stop: 02/03/17 10:59 Last Infusion: 12/07/16 03:35 Dose: Infused Metronidazole 500 mg/ (Miscellaneous) 100 mls @ 100 mls/hr IV Q8H [facility] Stop: 02/03/17 09:59 Last Infusion: 12/07/16 02:40 Dose: Infused Dextrose (D5w) 1,000 mls @ 100 mls/hr IV .Q10H [facility] Stop: 02/04/17 09:29 Last Admin: 12/06/16 23:29 Dose: 100 mls/hr Insulin Aspart (Novolog Insulin Sliding Scale) 0 units SUBQ ACHS [facility] PRN Reason: Protocol Stop: 01/31/17 07:29 Last Admin: 12/07/16 06:32 Dose: 3 units Insulin Detemir (Levemir Insulin) 10 units SUBQ HS [facility] PRN Reason: Protocol Stop: 02/03/17 20:59 Last Admin: 12/06/16 21:02 Dose: 10 unit Lorazepam (Ativan) 1 mg IVP Q8HR PRN; Protocol PRN Reason: AGITATION Stop: 02/04/17 19:42 Last Admin: 12/06/16 21:16 Dose: 1 mg Miscellaneous (Vte Chemical Prophylaxis Screen/ Admission) 1 ea PRN PRN PRN Reason: PROTOCOL Stop: 01/31/17 13:38 Miscellaneous (Clinical Monitoring) 1 [facility] DAILY PRN PRN Reason: RENAL Stop: 02/04/17 08:05 Pantoprazole Sodium (Protonix) 40 mg IVP DAILY [facility] Stop: 02/01/17 08:59 Last Admin: 12/07/16 08:47 Dose: 40 mg Sodium Bicarbonate (Sodium Bicarbonate) 650 mg PO BID [facility] PRN Reason: Protocol Stop: 01/31/17 16:59 Last Admin: 12/07/16 08:47 Dose: 650 mg General: No acute distress, Other (Patient is awake, restless trying to take off tubes.) HEENT: Atraumatic, Mucous membr. moist/pink, Other (Patient is intubated) Neck: Supple, +2 carotid pulse wo bruit Cardiovascular: Regular rate, Normal S1, Normal S2 Lungs: Clear to auscultation, Other (few rhonchi) Abdomen: Bowel sounds, Soft, Other (PEG in place, Colostomy in place) Extremities: Other (No edema), no Edema Neurological: Sensation intact, Other (Non ambulatory) Skin: Other (Decubit sacral ulcer stage IV), no Significant lesion Psych/Mental Status: Mood NL, Other (Awake, alert, restless, intubated) - Procedures Procedures: Procedures Procedure Code Date BYPASS DESCENDING COLON TO CUTANEOUS, OPEN APPROACH [id number] 12/02/16 COLOSTOMY 17769 12/02/16 CHAGO BONE 20 SQ CM/< 12269 12/02/16 CHAGO MUSC/FASCIA 20 SQ CM/< 53294 10/24/16 CHAGO SUBQ TISSUE 20 SQ CM/< 36964 12/02/16 EXCISION OF L FOOT SUBCU/FASCIA, OPEN APPROACH [id number] 12/02/16 EXCISION OF LEFT HIP MUSCLE, OPEN APPROACH [id number] 10/24/16 EXCISION OF LEFT PELVIC BONE, OPEN APPROACH [id number] 12/02/16 EXCISION OF R FOOT SUBCU/FASCIA, OPEN APPROACH [id number] 12/02/16 Assessment/Plan - Problem List Patient Problems: All Active Problems POOR ORAL INTAKE AND SWALLOWING (Acute) SACRAL AND BILATERAL BUTTOCK SKIN ULCERS (Acute) - Assessment Assessment: Current Active Problems Problem Status Onset POOR ORAL INTAKE AND SWALLOWING Acute Patient has been calm during the mantilla. non verbal, in no acute distress. Intubated. Na, Creatinine improving. Colostomy in place. ABG will be done today and Wheaning proxcess will start. Dx: Hypernatremia, AKF, Chronic anemia, Sacral decubitus ulcer stage IV, HTN, DM, Dementia - Plan Plan: PEG in place, fedding started. Already seen by [facility], GI, and surgery. NA, and Creatinine improving. Case discussed with family. IV will be decreased and feeding increased, K replaced. Will continue to monitor. Nutritional Asmnt/Malnutr-PDOC - Dietary Evaluation Malnutrition Findings (Please click <Entered> for more info): Nutritional Asmnt/Malnutrition Start: 12/02/16 14: 44 Text: Status: Complete Freq: Document 12/02/16 14:44 GSUN (Rec: 12/02/16 15:19 GSUN [id number]) Nutritional Asmnt/Malnutrition Patient General Information Nutritional Screening Consult Diagnosis AKF, sacral decubitus ulcer stage IV, HTN, DM, dementia, chronic anemia Pertinent Medical Hx/Surgical Hx CAD, CVA, dementia, psychosis, muscle atrophy, AKF, DM, decubitus ulcer stage IV Subjective Information 81 year old female from SNF. RD consult for low Elliot and elevated blood glucose. Pt was awake, unable to provide nutrition hx. Family at bedside, spoke to family and RN Loren regarding nutrition plan of care, PEG placement consent obtained. Family has no other questions at this time. Elevated BUN, [employer], K, family reported pt is not on dialysis, "possible HD today" per H&P. Per nursing adm notes , 4-5lb wt loss in 2 weeks. Per family, unaware of UBW, aware of recent wt loss, stated pt stopped eating ~3-4 days ago. Loose skin, moderate to severe muslce fat wasting to chest and clavicles. Current Diet Order/ Nutrition Support NPO Pertinent Medications Dulcolax, D5-0.45ns, Novolog Pertinent Labs 12/01: A1c 9H 12/02: sodium 173H, potassium 5.3H, BUN 169H, creatinie 5.8H , glucose 238H, calcium 10.8H Nutritional Hx/Data Height 1.52 m Height (Calculated Centimeters) 152.4 Current Weight (lbs) 43.545 kg Weight (Calculated Kilograms) 43.5 Weight (Calculated Grams) 69317.9 [place] Body Weight 100 Recent Weight Change Yes Weight Status Approriate GI Symptoms Usual diet at home [facility]: pureed, AL[facility] , [facility] Skin Integrity/Comment: Elliot 11. Sacral decubitus ulcer stage IV. Estimated Nutritional Goals Calories/Kcals/Kg IBW 100lb/45.5kg Kcals Calculated 1365-1593kcal (30-35kcal/kg) Protein Calculated 68-73g (1.4-1.6g/kg, ulcer vs renal, ?HD) Fluid: ml Per MD Nutritional Problem 3. Problem Problem Altered nutrition related laboratory values related to Etiology DM aeb Signs/Symptoms: A1c 9H, glucose 238H 2. Problem Problem Increased kcal and prot needs related to Etiology skin integrity, recent weight loss aeb Signs/Symptoms: Sacral decubitus ulcer stage IV, wt loss 4-5lb in 2 weeks per nursing adm notes, moderate to seevre muslce/fat wasting to chest and clavicles 1. Problem Problem Impaired nutrient utilization related to Etiology acute kidney injury aeb Signs/Symptoms: potassium 5.3H, BUN 169H, creatinie 5.8H, calcium 10.8H Intervention/Recommendation Comments 1. Discussed enteral nutrition with family. Family has no further questions at this time . 2. When medically feasible to initiate feeding, recommend Novasource Renal at 30ml/hr x 24hrs, providing 720ml total volume, 1440kcal, 65g protein. Initiate at 10ml/hr for first 24 hrs, monitor for refeeding syndrome and tolerance, increase by 5ml/hr q12hrs until goal. 3. Recommend 1 packet Arginaid daily via tube for wound healing. 4. Monitor weight closely. Hx 4-5lb wt loss in 2 weeks per nursing adm note. Expected Outcomes/Goals Expected Outcomes/Goals 1. Pt to meet at least 75% of estimated nutritinoal eneds on tube feeding with tolerance.
--- NOTE | 2016-12-07 09:04 | General Progress Note ---
Subjective - Review of Systems Service Date: 12/07/16 Subjective: Patient is sleeping but arousable, non verbal. Objective - Results Result Diagrams: 12/07/16 04:25 12/07/16 04:25 Recent Labs: Laboratory Last Values WBC 9.1 Th/cmm (4.8-10.8) 12/07/16 04:25 Corrected WBC (auto) 8.8 Th/cmm (4.8-10.8) 12/01/16 18:25 RBC 3.13 Mil/cmm (3.80-5.20) L 12/07/16 04:25 Hgb 9.0 gm/dL (12-16) L 12/07/16 04:25 Hct 27.4 % (41.0-60) L 12/07/16 04:25 MCV 87.4 fl (81-100) 12/07/16 04:25 MCH 28.7 pg (27.0-31.0) 12/07/16 04:25 MCHC Differential 32.9 pg (28.0-36.0) 12/07/16 04:25 RDW 19.3 % (11.5-20.0) 12/07/16 04:25 Plt Count 77 Th/cmm (150-400) L 12/07/16 04:25 MPV 14.2 fl 12/07/16 04:25 Neutrophils % 83.1 % (40.0-80.0) H 12/07/16 04:25 Band Neutrophils % 8 % (0-10) 12/04/16 04:50 Lymphocytes % 10.5 % (20.0-50.0) L 12/07/16 04:25 Monocytes % 4.7 % (2.0-10.0) 12/07/16 04:25 Eosinophils % 1.7 % (0.0-5.0) 12/07/16 04:25 Basophils % 0.0 % (0.0-2.0) 12/07/16 04:25 Neutrophils (Manual) 77 % (40-80) 12/04/16 04:50 Lymphocytes 10 % (20-50) L 12/04/16 04:50 Monocytes 5 % (2-10) 12/04/16 04:50 Eosinophils 3 % (0-5) 12/03/16 05:35 Nucleated RBCs 5.0 % (0-0) H 12/01/16 18:25 Atypical Lymphocytes 1 % 12/01/16 18:25 Platelet Estimate SLIGHT DECREASED (NORMAL) 12/04/16 04:50 Platelet Morphology NORMAL (NORMAL) 12/01/16 18:25 Anisocytosis 2+ 12/03/16 05:35 RBC Morph Micro Appear ABNORMAL (NORMAL) 12/01/16 18:25 Eos Smear Source URINE 12/03/16 06:30 Eos Smear Total Cells NONE SEEN (NONE SEEN) 12/03/16 06:30 PT 11.2 SECONDS (9.5-11.5) 12/03/16 05:35 INR 1.08 (0.5-1.4) 12/03/16 05:35 PTT (Actin FS) 19.6 SECONDS (26.0-38.0) L 12/01/16 18:25 Specimen Source Arterial 12/06/16 08:47 Sample Site Left Radial 12/06/16 08:47 pH 7.35 (7.35-7.45) 12/06/16 08:47 pCO2 19.0 mmHg (35.0-45.0) L* 12/06/16 08:47 pO2 177.0 mmHg (80.0-100.0) H 12/06/16 08:47 HCO3 14.9 mEq/L (20.0-26.0) L 12/06/16 08:47 Base Excess -12.9 mEq/L (-3.0-3.0) L 12/06/16 08:47 O2 Saturation 100.0 % (92.0-100.0) 12/06/16 08:47 Isidro Test Positive 12/06/16 08:47 Vent Rate 8 12/06/16 08:47 Inspired O2 40 12/06/16 08:47 Tidal Volume 450 12/06/16 08:47 PEEP 5 12/06/16 08:47 Pressure (ins/psv/peep) 10 12/06/16 08:47 Critical Value O. Storm 12/06/16 08:47 Sodium 149 mEq/L (136-145) H 12/07/16 04:25 Potassium 3.3 mEq/L (3.5-5.1) L 12/07/16 04:25 Chloride 123 mEq/L (98-107) H 12/07/16 04:25 Carbon Dioxide 15.8 mEq/L (21.0-31.0) L 12/07/16 04:25 Anion Gap 13.5 (7.0-16.0) 12/07/16 04:25 BUN 75 mg/dL (7-25) H 12/07/16 04:25 Creatinine 2.9 mg/dL (0.6-1.2) H 12/07/16 04:25 Est GFR ( Amer) TNP 12/07/16 04:25 Est GFR (Non-Af Amer) TNP 12/07/16 04:25 BUN/Creatinine Ratio 25.9 12/07/16 04:25 Glucose 195 mg/dL (70-105) H 12/07/16 04:25 POC Glucose 262 MG/DL (70 - 105) H 12/06/16 20:57 Hemoglobin A1c % 9.0 % (4.0-6.0) H 12/01/16 18:25 Whole Bld Lactic Acid 2.84 mmol/L (0.60-1.99) H* 12/05/16 12:05 Uric Acid 11.6 mg/dL (2.3-6.6) H 12/03/16 05:35 Calcium 8.5 mg/dL (8.6-10.3) L 12/07/16 04:25 Magnesium 2.7 mg/dL (1.9-2.7) 12/03/16 05:35 Total Bilirubin 0.5 mg/dL (0.3-1.0) 12/05/16 10:05 AST 8 U/L (13-39) L 12/05/16 10:05 ALT 3 U/L (7-52) L 12/05/16 10:05 Alkaline Phosphatase 83 U/L (34-104) 12/05/16 10:05 Total Protein 5.2 gm/dL (6.0-8.3) L 12/05/16 10:05 Albumin 2.4 gm/dL (3.7-5.3) L 12/05/16 10:05 Globulin 2.8 gm/dL 12/05/16 10:05 Albumin/Globulin Ratio 0.9 (1.0-1.8) L 12/05/16 10:05 TSH 2.49 uIU/ml (0.34-5.60) 12/03/16 05:35 Urine Source SOTO PORT 12/02/16 14:56 Urine Color YELLOW 12/02/16 14:56 Urine Clarity HAZY (CLEAR) 12/02/16 14:56 Urine pH 8.0 (4.6 - 8.0) 12/02/16 14:56 Ur Specific Grandin 1.015 (1.005-1.030) 12/02/16 14:56 Urine Protein 100 mg/dL (NEGATIVE) H 12/02/16 14:56 Urine Glucose (UA) 500 mg/dL (NEGATIVE) H 12/02/16 14:56 Urine Ketones NEGATIVE mg/dL (NEGATIVE) 12/02/16 14:56 Urine Blood MODERATE (NEGATIVE) H 12/02/16 14:56 Urine Nitrate POSITIVE (NEGATIVE) H 12/02/16 14:56 Urine Bilirubin NEGATIVE (NEGATIVE) 12/02/16 14:56 Urine Urobilinogen 0.2 E.U./dL (0.2 - 1.0) 12/02/16 14:56 Ur Leukocyte Esterase MODERATE (NEGATIVE) H 12/02/16 14:56 Urine RBC 5-10 /hpf (0-5) H 12/02/16 14:56 Urine WBC 50-100 /hpf (0-5) H 12/02/16 14:56 Ur Epithelial Cells FEW /lpf (FEW) 12/02/16 14:56 Triple Phos Crystals MODERATE /hpf (FEW) 12/02/16 14:56 Urine Bacteria MANY /hpf (NONE SEEN) 12/02/16 14:56 Urine Osmolality 488 mOsmol/kg 12/03/16 06:30 Ur Random Sodium 75 mmol/L 12/03/16 06:30 Urine Creatinine 49.0 mg/dl (28.0-217.0) 12/03/16 06:30 Blood Type O POSITIVE 12/02/16 05:05 Antibody Screen NEGATIVE 12/02/16 05:05 Crossmatch See Detail 12/02/16 05:05 - Physical Exam Vitals and I&O: Vital Signs Temp 97.6 F 12/07/16 06:00 Pulse 90 12/07/16 06:57 Resp 14 12/07/16 06:57 BP 135/70 12/07/16 06:57 Pulse Ox 100 12/07/16 08:00 Intake & Output 12/06/16 12/07/16 12/07/16 18:59 06:59 18:59 Intake Total 590 1540 Output Total 503 400 Balance 87 1140 Weight (lbs) 53.07 kg 53.615 kg Intake: Intake, IV Amount 250 1200 Dextrose 5% 1,000 ml @ 1000 100 mls/hr IV .Q10H [facility] Rx#:[id number] Piperacillin Sodium/ 50 100 Tazobact 2.25 gm In Dextrose 5% 50 ml @ 100 mls/hr IV Q8H [facility] Rx#: [id number] metroNIDAZOLE 500mg/NS 200 100 100mL 500 mg In Premix Fluid 1 bag @ 100 mls/hr IV Q8H [facility] Rx#:[id number] Tube Feeding 240 240 Other 100 100 Output: Urine 500 400 Stool 3 0 Active Medications: Current Medications Acetaminophen (Tylenol) 650 mg PO Q6H PRN PRN Reason: Mild Pain or Fever >101 Stop: 01/31/17 11:18 Albuterol/Ipratropium (Duoneb Neb) 3 ml HHN Q6HRT [facility] Stop: 02/04/17 12:59 Last Admin: 12/07/16 06:43 Dose: 3 ml Albuterol/Ipratropium (Duoneb Neb) 3 ml HHN Q2HRT PRN PRN Reason: Wheezing Stop: 02/04/17 10:02 Last Admin: 12/06/16 10:23 Dose: 3 ml Bisacodyl (Dulcolax 5 Mg Ec Tab) 10 mg PO BID [facility] Stop: 01/31/17 16:59 Last Admin: 12/07/16 08:50 Dose: 10 mg Chlorhexidine Gluconate (Peridex) 15 ml MM 08,1999 [facility] Stop: 02/03/17 19:59 Last Admin: 12/07/16 08:43 Dose: 15 ml Epoetin Esequiel (Epogen) 10,000 units SUBQ TuThSa [facility] Stop: 02/01/17 14:29 Last Admin: 12/06/16 17:01 Dose: 10,000 units Hydromorphone HCl (Dilaudid) 1 mg IVP Q6HR PRN PRN Reason: Pain (Moderate-Severe) Stop: 02/04/17 08:11 Last Admin: 12/07/16 01:35 Dose: 1 mg Piperacillin Sod/Tazobactam (Sod 2.25 gm/ Dextrose) 50 mls @ 100 mls/hr IV Q8H [facility] Stop: 02/03/17 10:59 Last Infusion: 12/07/16 03:35 Dose: Infused Metronidazole 500 mg/ (Miscellaneous) 100 mls @ 100 mls/hr IV Q8H [facility] Stop: 02/03/17 09:59 Last Infusion: 12/07/16 02:40 Dose: Infused Dextrose (D5w) 1,000 mls @ 100 mls/hr IV .Q10H [facility] Stop: 02/04/17 09:29 Last Admin: 12/06/16 23:29 Dose: 100 mls/hr Insulin Aspart (Novolog Insulin Sliding Scale) 0 units SUBQ ACHS [facility] PRN Reason: Protocol Stop: 01/31/17 07:29 Last Admin: 12/07/16 06:32 Dose: 3 units Insulin Detemir (Levemir Insulin) 10 units SUBQ HS [facility] PRN Reason: Protocol Stop: 02/03/17 20:59 Last Admin: 12/06/16 21:02 Dose: 10 unit Lorazepam (Ativan) 1 mg IVP Q8HR PRN; Protocol PRN Reason: AGITATION Stop: 02/04/17 19:42 Last Admin: 12/06/16 21:16 Dose: 1 mg Miscellaneous (Vte Chemical Prophylaxis Screen/ Admission) 1 ea PRN PRN PRN Reason: PROTOCOL Stop: 01/31/17 13:38 Miscellaneous (Clinical Monitoring) 1 [facility] DAILY PRN PRN Reason: RENAL Stop: 02/04/17 08:05 Pantoprazole Sodium (Protonix) 40 mg IVP DAILY [facility] Stop: 02/01/17 08:59 Last Admin: 12/07/16 08:47 Dose: 40 mg Sodium Bicarbonate (Sodium Bicarbonate) 650 mg PO BID [facility] PRN Reason: Protocol Stop: 01/31/17 16:59 Last Admin: 12/07/16 08:47 Dose: 650 mg General: No acute distress, Other (Patient is awake, restless trying to take off tubes.) HEENT: Atraumatic, Mucous membr. moist/pink, Other (Patient is intubated) Neck: Supple, +2 carotid pulse wo bruit Cardiovascular: Regular rate, Normal S1, Normal S2 Lungs: Clear to auscultation, Other (few rhonchi) Abdomen: Bowel sounds, Soft, Other (PEG in place, Colostomy in place) Extremities: Other (No edema), no Edema Neurological: Sensation intact, Other (Non ambulatory) Skin: Other (Decubit sacral ulcer stage IV), no Significant lesion Psych/Mental Status: Mood NL, Other (Awake, alert, restless, intubated) - Procedures Procedures: Procedures Procedure Code Date BYPASS DESCENDING COLON TO CUTANEOUS, OPEN APPROACH [id number] 12/02/16 COLOSTOMY 97178 12/02/16 CHAGO BONE 20 SQ CM/< [id number] 12/02/16 CHAGO MUSC/FASCIA 20 SQ CM/< [id number] 10/24/16 CHAGO SUBQ TISSUE 20 SQ CM/< [id number] 12/02/16 EXCISION OF L FOOT SUBCU/FASCIA, OPEN APPROACH [id number] 12/02/16 EXCISION OF LEFT HIP MUSCLE, OPEN APPROACH [id number] 10/24/16 EXCISION OF LEFT PELVIC BONE, OPEN APPROACH [id number] 12/02/16 EXCISION OF R FOOT SUBCU/FASCIA, OPEN APPROACH [id number] 12/02/16 Assessment/Plan - Problem List Patient Problems: All Active Problems POOR ORAL INTAKE AND SWALLOWING (Acute) SACRAL AND BILATERAL BUTTOCK SKIN ULCERS (Acute) - Assessment Assessment: Current Active Problems Problem Status Onset POOR ORAL INTAKE AND SWALLOWING Acute Patient has been calm during the mantilla. non verbal, in no acute distress. Intubated. Na, Creatinine improving. Colostomy in place. ABG will be done today and Wheaning proxcess will start. Dx: Hypernatremia, AKF, Chronic anemia, Sacral decubitus ulcer stage IV, HTN, DM, Dementia - Plan Plan: PEG in place, fedding started. Already seen by [facility], GI, and surgery. NA, and Creatinine improving. Case discussed with family. IV will be decreased and feeding increased, K replaced. Will continue to monitor. Nutritional Asmnt/Malnutr-PDOC - Dietary Evaluation Malnutrition Findings (Please click <Entered> for more info): Nutritional Asmnt/Malnutrition Start: 12/02/16 14: 44 Text: Status: Complete Freq: Document 12/02/16 14:44 GSUN (Rec: 12/02/16 15:19 GSUN [id number]) Nutritional Asmnt/Malnutrition Patient General Information Nutritional Screening Consult Diagnosis AKF, sacral decubitus ulcer stage IV, HTN, DM, dementia, chronic anemia Pertinent Medical Hx/Surgical Hx CAD, CVA, dementia, psychosis, muscle atrophy, AKF, DM, decubitus ulcer stage IV Subjective Information 81 year old female from SNF. RD consult for low Elliot and elevated blood glucose. Pt was awake, unable to provide nutrition hx. Family at bedside, spoke to family and RN Loren regarding nutrition plan of care, PEG placement consent obtained. Family has no other questions at this time. 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 Per nursing adm notes , 4-5lb wt loss in 2 weeks. Per family, unaware of UBW, aware of recent wt loss, stated pt stopped eating ~3-4 days ago. Loose skin, moderate to severe muslce fat wasting to chest and clavicles. Current Diet Order/ Nutrition Support NPO Pertinent Medications Dulcolax, D5-0.45ns, Novolog Pertinent Labs 12/01: A1c 9H 12/02: sodium 173H, potassium 5.3H, BUN 169H, creatinie 5.8H , glucose 238H, calcium 10.8H Nutritional Hx/Data Height 1.52 m Height (Calculated Centimeters) 152.4 Current Weight (lbs) 43.545 kg Weight (Calculated Kilograms) 43.5 Weight (Calculated Grams) 61729.9 [place] Body Weight 100 Recent Weight Change Yes Weight Status Approriate GI Symptoms Usual diet at home [facility]: pureed, ALISE , [facility] Skin Integrity/Comment: Elliot 11. Sacral decubitus ulcer stage IV. Estimated Nutritional Goals Calories/Kcals/Kg IBW 100lb/45.5kg Kcals Calculated 1365-1593kcal (30-35kcal/kg) Protein Calculated 68-73g (1.4-1.6g/kg, ulcer vs renal, ?HD) Fluid: ml Per MD Nutritional Problem 3. Problem Problem Altered nutrition related laboratory values related to Etiology DM aeb Signs/Symptoms: A1c 9H, glucose 238H 2. Problem Problem Increased kcal and prot needs related to Etiology skin integrity, recent weight loss aeb Signs/Symptoms: Sacral decubitus ulcer stage IV, wt loss 4-5lb in 2 weeks per nursing adm notes, moderate to seevre muslce/fat wasting to chest and clavicles 1. Problem Problem Impaired nutrient utilization related to Etiology acute kidney injury aeb Signs/Symptoms: potassium 5.3H, BUN 169H, creatinie 5.8H, calcium 10.8H Intervention/Recommendation Comments 1. Discussed enteral nutrition with family. Family has no further questions at this time . 2. When medically feasible to initiate feeding, recommend Novasource Renal at 30ml/hr x 24hrs, providing 720ml total volume, 1440kcal, 65g protein. Initiate at 10ml/hr for first 24 hrs, monitor for refeeding syndrome and tolerance, increase by 5ml/hr q12hrs until goal. 3. Recommend 1 packet Arginaid daily via tube for wound healing. 4. Monitor weight closely. Hx 4-5lb wt loss in 2 weeks per nursing adm note. Expected Outcomes/Goals Expected Outcomes/Goals 1. Pt to meet at least 75% of estimated nutritinoal eneds on tube feeding with tolerance.
--- NOTE | 2016-12-07 09:04 | General Progress Note ---
Subjective - Review of Systems Service Date: 12/07/16 Subjective: Patient is sleeping but arousable, non verbal. Objective - Results Result Diagrams: 12/07/16 04:25 12/07/16 04:25 Recent Labs: Laboratory Last Values WBC 9.1 Th/cmm (4.8-10.8) 12/07/16 04:25 Corrected WBC (auto) 8.8 Th/cmm (4.8-10.8) 12/01/16 18:25 RBC 3.13 Mil/cmm (3.80-5.20) L 12/07/16 04:25 Hgb 9.0 gm/dL (12-16) L 12/07/16 04:25 Hct 27.4 % (41.0-60) L 12/07/16 04:25 MCV 87.4 fl (81-100) 12/07/16 04:25 MCH 28.7 pg (27.0-31.0) 12/07/16 04:25 MCHC Differential 32.9 pg (28.0-36.0) 12/07/16 04:25 RDW 19.3 % (11.5-20.0) 12/07/16 04:25 Plt Count 77 Th/cmm (150-400) L 12/07/16 04:25 MPV 14.2 fl 12/07/16 04:25 Neutrophils % 83.1 % (40.0-80.0) H 12/07/16 04:25 Band Neutrophils % 8 % (0-10) 12/04/16 04:50 Lymphocytes % 10.5 % (20.0-50.0) L 12/07/16 04:25 Monocytes % 4.7 % (2.0-10.0) 12/07/16 04:25 Eosinophils % 1.7 % (0.0-5.0) 12/07/16 04:25 Basophils % 0.0 % (0.0-2.0) 12/07/16 04:25 Neutrophils (Manual) 77 % (40-80) 12/04/16 04:50 Lymphocytes 10 % (20-50) L 12/04/16 04:50 Monocytes 5 % (2-10) 12/04/16 04:50 Eosinophils 3 % (0-5) 12/03/16 05:35 Nucleated RBCs 5.0 % (0-0) H 12/01/16 18:25 Atypical Lymphocytes 1 % 12/01/16 18:25 Platelet Estimate SLIGHT DECREASED (NORMAL) 12/04/16 04:50 Platelet Morphology NORMAL (NORMAL) 12/01/16 18:25 Anisocytosis 2+ 12/03/16 05:35 RBC Morph Micro Appear ABNORMAL (NORMAL) 12/01/16 18:25 Eos Smear Source URINE 12/03/16 06:30 Eos Smear Total Cells NONE SEEN (NONE SEEN) 12/03/16 06:30 PT 11.2 SECONDS (9.5-11.5) 12/03/16 05:35 INR 1.08 (0.5-1.4) 12/03/16 05:35 PTT (Actin FS) 19.6 SECONDS (26.0-38.0) L 12/01/16 18:25 Specimen Source Arterial 12/06/16 08:47 Sample Site Left Radial 12/06/16 08:47 pH 7.35 (7.35-7.45) 12/06/16 08:47 pCO2 19.0 mmHg (35.0-45.0) L* 12/06/16 08:47 pO2 177.0 mmHg (80.0-100.0) H 12/06/16 08:47 HCO3 14.9 mEq/L (20.0-26.0) L 12/06/16 08:47 Base Excess -12.9 mEq/L (-3.0-3.0) L 12/06/16 08:47 O2 Saturation 100.0 % (92.0-100.0) 12/06/16 08:47 Isidro Test Positive 12/06/16 08:47 Vent Rate 8 12/06/16 08:47 Inspired O2 40 12/06/16 08:47 Tidal Volume 450 12/06/16 08:47 PEEP 5 12/06/16 08:47 Pressure (ins/psv/peep) 10 12/06/16 08:47 Critical Value O. Storm 12/06/16 08:47 Sodium 149 mEq/L (136-145) H 12/07/16 04:25 Potassium 3.3 mEq/L (3.5-5.1) L 12/07/16 04:25 Chloride 123 mEq/L (98-107) H 12/07/16 04:25 Carbon Dioxide 15.8 mEq/L (21.0-31.0) L 12/07/16 04:25 Anion Gap 13.5 (7.0-16.0) 12/07/16 04:25 BUN 75 mg/dL (7-25) H 12/07/16 04:25 Creatinine 2.9 mg/dL (0.6-1.2) H 12/07/16 04:25 Est GFR ( Amer) TNP 12/07/16 04:25 Est GFR (Non-Af Amer) TNP 12/07/16 04:25 BUN/Creatinine Ratio 25.9 12/07/16 04:25 Glucose 195 mg/dL (70-105) H 12/07/16 04:25 POC Glucose 262 MG/DL (70 - 105) H 12/06/16 20:57 Hemoglobin A1c % 9.0 % (4.0-6.0) H 12/01/16 18:25 Whole Bld Lactic Acid 2.84 mmol/L (0.60-1.99) H* 12/05/16 12:05 Uric Acid 11.6 mg/dL (2.3-6.6) H 12/03/16 05:35 Calcium 8.5 mg/dL (8.6-10.3) L 12/07/16 04:25 Magnesium 2.7 mg/dL (1.9-2.7) 12/03/16 05:35 Total Bilirubin 0.5 mg/dL (0.3-1.0) 12/05/16 10:05 AST 8 U/L (13-39) L 12/05/16 10:05 ALT 3 U/L (7-52) L 12/05/16 10:05 Alkaline Phosphatase 83 U/L (34-104) 12/05/16 10:05 Total Protein 5.2 gm/dL (6.0-8.3) L 12/05/16 10:05 Albumin 2.4 gm/dL (3.7-5.3) L 12/05/16 10:05 Globulin 2.8 gm/dL 12/05/16 10:05 Albumin/Globulin Ratio 0.9 (1.0-1.8) L 12/05/16 10:05 TSH 2.49 uIU/ml (0.34-5.60) 12/03/16 05:35 Urine Source SOTO PORT 12/02/16 14:56 Urine Color YELLOW 12/02/16 14:56 Urine Clarity HAZY (CLEAR) 12/02/16 14:56 Urine pH 8.0 (4.6 - 8.0) 12/02/16 14:56 Ur Specific [place] 1.015 (1.005-1.030) 12/02/16 14:56 Urine Protein 100 mg/dL (NEGATIVE) H 12/02/16 14:56 Urine Glucose (UA) 500 mg/dL (NEGATIVE) H 12/02/16 14:56 Urine Ketones NEGATIVE mg/dL (NEGATIVE) 12/02/16 14:56 Urine Blood MODERATE (NEGATIVE) H 12/02/16 14:56 Urine Nitrate POSITIVE (NEGATIVE) H 12/02/16 14:56 Urine Bilirubin NEGATIVE (NEGATIVE) 12/02/16 14:56 Urine Urobilinogen 0.2 E.U./dL (0.2 - 1.0) 12/02/16 14:56 Ur Leukocyte Esterase MODERATE (NEGATIVE) H 12/02/16 14:56 Urine RBC 5-10 /hpf (0-5) H 12/02/16 14:56 Urine WBC 50-100 /hpf (0-5) H 12/02/16 14:56 Ur Epithelial Cells FEW /lpf (FEW) 12/02/16 14:56 Triple Phos Crystals MODERATE /hpf (FEW) 12/02/16 14:56 Urine Bacteria MANY /hpf (NONE SEEN) 12/02/16 14:56 Urine Osmolality 488 mOsmol/kg 12/03/16 06:30 Ur Random Sodium 75 mmol/L 12/03/16 06:30 Urine Creatinine 49.0 mg/dl (28.0-217.0) 12/03/16 06:30 Blood Type O POSITIVE 12/02/16 05:05 Antibody Screen NEGATIVE 12/02/16 05:05 Crossmatch See Detail 12/02/16 05:05 - Physical Exam Vitals and I&O: Vital Signs Temp 97.6 F 12/07/16 06:00 Pulse 90 12/07/16 06:57 Resp 14 12/07/16 06:57 BP 135/70 12/07/16 06:57 Pulse Ox 100 12/07/16 08:00 Intake & Output 12/06/16 12/07/16 12/07/16 18:59 06:59 18:59 Intake Total 590 1540 Output Total 503 400 Balance 87 1140 Weight (lbs) 53.07 kg 53.615 kg Intake: Intake, IV Amount 250 1200 Dextrose 5% 1,000 ml @ 1000 100 mls/hr IV .Q10H [facility] Rx#:[id number] Piperacillin Sodium/ 50 100 Tazobact 2.25 gm In Dextrose 5% 50 ml @ 100 mls/hr IV Q8H [facility] Rx#: [id number] metroNIDAZOLE 500mg/NS 200 100 100mL 500 mg In Premix Fluid 1 bag @ 100 mls/hr IV Q8H [facility] Rx#:[id number] Tube Feeding 240 240 Other 100 100 Output: Urine 500 400 Stool 3 0 Active Medications: Current Medications Acetaminophen (Tylenol) 650 mg PO Q6H PRN PRN Reason: Mild Pain or Fever >101 Stop: 01/31/17 11:18 Albuterol/Ipratropium (Duoneb Neb) 3 ml HHN Q6HRT [facility] Stop: 02/04/17 12:59 Last Admin: 12/07/16 06:43 Dose: 3 ml Albuterol/Ipratropium (Duoneb Neb) 3 ml HHN Q2HRT PRN PRN Reason: Wheezing Stop: 02/04/17 10:02 Last Admin: 12/06/16 10:23 Dose: 3 ml Bisacodyl (Dulcolax 5 Mg Ec Tab) 10 mg PO BID [facility] Stop: 01/31/17 16:59 Last Admin: 12/07/16 08:50 Dose: 10 mg Chlorhexidine Gluconate (Peridex) 15 ml MM 08,1999 [facility] Stop: 02/03/17 19:59 Last Admin: 12/07/16 08:43 Dose: 15 ml Epoetin Esequiel (Epogen) 10,000 units SUBQ TuThSa [facility] Stop: 02/01/17 14:29 Last Admin: 12/06/16 17:01 Dose: 10,000 units Hydromorphone HCl (Dilaudid) 1 mg IVP Q6HR PRN PRN Reason: Pain (Moderate-Severe) Stop: 02/04/17 08:11 Last Admin: 12/07/16 01:35 Dose: 1 mg Piperacillin Sod/Tazobactam (Sod 2.25 gm/ Dextrose) 50 mls @ 100 mls/hr IV Q8H [facility] Stop: 02/03/17 10:59 Last Infusion: 12/07/16 03:35 Dose: Infused Metronidazole 500 mg/ (Miscellaneous) 100 mls @ 100 mls/hr IV Q8H [facility] Stop: 02/03/17 09:59 Last Infusion: 12/07/16 02:40 Dose: Infused Dextrose (D5w) 1,000 mls @ 100 mls/hr IV .Q10H [facility] Stop: 02/04/17 09:29 Last Admin: 12/06/16 23:29 Dose: 100 mls/hr Insulin Aspart (Novolog Insulin Sliding Scale) 0 units SUBQ ACHS [facility] PRN Reason: Protocol Stop: 01/31/17 07:29 Last Admin: 12/07/16 06:32 Dose: 3 units Insulin Detemir (Levemir Insulin) 10 units SUBQ HS [facility] PRN Reason: Protocol Stop: 02/03/17 20:59 Last Admin: 12/06/16 21:02 Dose: 10 unit Lorazepam (Ativan) 1 mg IVP Q8HR PRN; Protocol PRN Reason: AGITATION Stop: 02/04/17 19:42 Last Admin: 12/06/16 21:16 Dose: 1 mg Miscellaneous (Vte Chemical Prophylaxis Screen/ Admission) 1 ea PRN PRN PRN Reason: PROTOCOL Stop: 01/31/17 13:38 Miscellaneous (Clinical Monitoring) 1 [facility] DAILY PRN PRN Reason: RENAL Stop: 02/04/17 08:05 Pantoprazole Sodium (Protonix) 40 mg IVP DAILY [facility] Stop: 02/01/17 08:59 Last Admin: 12/07/16 08:47 Dose: 40 mg Sodium Bicarbonate (Sodium Bicarbonate) 650 mg PO BID [facility] PRN Reason: Protocol Stop: 01/31/17 16:59 Last Admin: 12/07/16 08:47 Dose: 650 mg General: No acute distress, Other (Patient is awake, restless trying to take off tubes.) HEENT: Atraumatic, Mucous membr. moist/pink, Other (Patient is intubated) Neck: Supple, +2 carotid pulse wo bruit Cardiovascular: Regular rate, Normal S1, Normal S2 Lungs: Clear to auscultation, Other (few rhonchi) Abdomen: Bowel sounds, Soft, Other (PEG in place, Colostomy in place) Extremities: Other (No edema), no Edema Neurological: Sensation intact, Other (Non ambulatory) Skin: Other (Decubit sacral ulcer stage IV), no Significant lesion Psych/Mental Status: Mood NL, Other (Awake, alert, restless, intubated) - Procedures Procedures: Procedures Procedure Code Date BYPASS DESCENDING COLON TO CUTANEOUS, OPEN APPROACH [id number] 12/02/16 COLOSTOMY 45872 12/02/16 CHAGO BONE 20 SQ CM/< 67100 12/02/16 CHAGO MUSC/FASCIA 20 SQ CM/< 53589 10/24/16 CHAGO SUBQ TISSUE 20 SQ CM/< [id number] 12/02/16 EXCISION OF L FOOT SUBCU/FASCIA, OPEN APPROACH [id number] 12/02/16 EXCISION OF LEFT HIP MUSCLE, OPEN APPROACH [id number] 10/24/16 EXCISION OF LEFT PELVIC BONE, OPEN APPROACH [id number] 12/02/16 EXCISION OF R FOOT SUBCU/FASCIA, OPEN APPROACH [id number] 12/02/16 Assessment/Plan - Problem List Patient Problems: All Active Problems POOR ORAL INTAKE AND SWALLOWING (Acute) SACRAL AND BILATERAL BUTTOCK SKIN ULCERS (Acute) - Assessment Assessment: Current Active Problems Problem Status Onset POOR ORAL INTAKE AND SWALLOWING Acute Patient has been calm during the mantilla. non verbal, in no acute distress. Intubated. Na, Creatinine improving. Colostomy in place. ABG will be done today and Wheaning proxcess will start. Dx: Hypernatremia, AKF, Chronic anemia, Sacral decubitus ulcer stage IV, HTN, DM, Dementia - Plan Plan: PEG in place, fedding started. Already seen by [facility], GI, and surgery. NA, and Creatinine improving. Case discussed with family. IV will be decreased and feeding increased, K replaced. Will continue to monitor. Nutritional Asmnt/Malnutr-PDOC - Dietary Evaluation Malnutrition Findings (Please click <Entered> for more info): Nutritional Asmnt/Malnutrition Start: 12/02/16 14: 44 Text: Status: Complete Freq: Document 12/02/16 14:44 GSUN (Rec: 12/02/16 15:19 GSUN [id number]) Nutritional Asmnt/Malnutrition Patient General Information Nutritional Screening Consult Diagnosis AKF, sacral decubitus ulcer stage IV, HTN, DM, dementia, chronic anemia Pertinent Medical Hx/Surgical Hx CAD, CVA, dementia, psychosis, muscle atrophy, AKF, DM, decubitus ulcer stage IV Subjective Information 81 year old female from SNF. RD consult for low Elliot and elevated blood glucose. Pt was awake, unable to provide nutrition hx. Family at bedside, spoke to family and RN Loren regarding nutrition plan of care, PEG placement consent obtained. Family has no other questions at this time. 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 Per nursing adm notes , 4-5lb wt loss in 2 weeks. Per family, unaware of UBW, aware of recent wt loss, stated pt stopped eating ~3-4 days ago. Loose skin, moderate to severe muslce fat wasting to chest and clavicles. Current Diet Order/ Nutrition Support NPO Pertinent Medications Dulcolax, D5-0.45ns, Novolog Pertinent Labs 12/01: A1c 9H 12/02: sodium 173H, potassium 5.3H, BUN 169H, creatinie 5.8H , glucose 238H, calcium 10.8H Nutritional Hx/Data Height 1.52 m Height (Calculated Centimeters) 152.4 Current Weight (lbs) 43.545 kg Weight (Calculated Kilograms) 43.5 Weight (Calculated Grams) 52442.9 [place] Body Weight 100 Recent Weight Change Yes Weight Status Approriate GI Symptoms Usual diet at home [facility]: pureed, [facility] Skin Integrity/Comment: Elliot 11. Sacral decubitus ulcer stage IV. Estimated Nutritional Goals Calories/Kcals/Kg IBW 100lb/45.5kg Kcals Calculated 1365-1593kcal (30-35kcal/kg) Protein Calculated 68-73g (1.4-1.6g/kg, ulcer vs renal, ?HD) Fluid: ml Per MD Nutritional Problem 3. Problem Problem Altered nutrition related laboratory values related to Etiology DM aeb Signs/Symptoms: A1c 9H, glucose 238H 2. Problem Problem Increased kcal and prot needs related to Etiology skin integrity, recent weight loss aeb Signs/Symptoms: Sacral decubitus ulcer stage IV, wt loss 4-5lb in 2 weeks per nursing adm notes, moderate to seevre muslce/fat wasting to chest and clavicles 1. Problem Problem Impaired nutrient utilization related to Etiology acute kidney injury aeb Signs/Symptoms: potassium 5.3H, BUN 169H, creatinie 5.8H, calcium 10.8H Intervention/Recommendation Comments 1. Discussed enteral nutrition with family. Family has no further questions at this time . 2. When medically feasible to initiate feeding, recommend Novasource Renal at 30ml/hr x 24hrs, providing 720ml total volume, 1440kcal, 65g protein. Initiate at 10ml/hr for first 24 hrs, monitor for refeeding syndrome and tolerance, increase by 5ml/hr q12hrs until goal. 3. Recommend 1 packet Arginaid daily via tube for wound healing. 4. Monitor weight closely. Hx 4-5lb wt loss in 2 weeks per nursing adm note. Expected Outcomes/Goals Expected Outcomes/Goals 1. Pt to meet at least 75% of estimated nutritinoal eneds on tube feeding with tolerance.
[2016-12-07 09:43] LABS: pH 7.38 (7.35-7.45)
--- NOTE | 2016-12-07 09:53 | General Progress Note ---
Subjective - Review of Systems Service Date: 12/07/16 Events since last encounter: labs noted minimal colostomy output ABG noted, extubation? Objective - Results Result Diagrams: 12/07/16 04:25 12/07/16 04:25 Recent Labs: Laboratory Last Values WBC 9.1 Th/cmm (4.8-10.8) 12/07/16 04:25 Corrected WBC (auto) 8.8 Th/cmm (4.8-10.8) 12/01/16 18:25 RBC 3.13 Mil/cmm (3.80-5.20) L 12/07/16 04:25 Hgb 9.0 gm/dL (12-16) L 12/07/16 04:25 Hct 27.4 % (41.0-60) L 12/07/16 04:25 MCV 87.4 fl (81-100) 12/07/16 04:25 MCH 28.7 pg (27.0-31.0) 12/07/16 04:25 MCHC Differential 32.9 pg (28.0-36.0) 12/07/16 04:25 RDW 19.3 % (11.5-20.0) 12/07/16 04:25 Plt Count 77 Th/cmm (150-400) L 12/07/16 04:25 MPV 14.2 fl 12/07/16 04:25 Neutrophils % 83.1 % (40.0-80.0) H 12/07/16 04:25 Band Neutrophils % 8 % (0-10) 12/04/16 04:50 Lymphocytes % 10.5 % (20.0-50.0) L 12/07/16 04:25 Monocytes % 4.7 % (2.0-10.0) 12/07/16 04:25 Eosinophils % 1.7 % (0.0-5.0) 12/07/16 04:25 Basophils % 0.0 % (0.0-2.0) 12/07/16 04:25 Neutrophils (Manual) 77 % (40-80) 12/04/16 04:50 Lymphocytes 10 % (20-50) L 12/04/16 04:50 Monocytes 5 % (2-10) 12/04/16 04:50 Eosinophils 3 % (0-5) 12/03/16 05:35 Nucleated RBCs 5.0 % (0-0) H 12/01/16 18:25 Atypical Lymphocytes 1 % 12/01/16 18:25 Platelet Estimate SLIGHT DECREASED (NORMAL) 12/04/16 04:50 Platelet Morphology NORMAL (NORMAL) 12/01/16 18:25 Anisocytosis 2+ 12/03/16 05:35 RBC Morph Micro Appear ABNORMAL (NORMAL) 12/01/16 18:25 Eos Smear Source URINE 12/03/16 06:30 Eos Smear Total Cells NONE SEEN (NONE SEEN) 12/03/16 06:30 PT 11.2 SECONDS (9.5-11.5) 12/03/16 05:35 INR 1.08 (0.5-1.4) 12/03/16 05:35 PTT (Actin FS) 19.6 SECONDS (26.0-38.0) L 12/01/16 18:25 Specimen Source Arterial 12/07/16 09:35 Sample Site LB 12/07/16 09:35 pH 7.38 (7.35-7.45) 12/07/16 09:35 pCO2 23.0 mmHg (35.0-45.0) L* 12/07/16 09:35 pO2 130.0 mmHg (80.0-100.0) H 12/07/16 09:35 HCO3 17.4 mEq/L (20.0-26.0) L 12/07/16 09:35 Base Excess -9.7 mEq/L (-3.0-3.0) L 12/07/16 09:35 O2 Saturation 99.0 % (92.0-100.0) 12/07/16 09:35 Isidro Test NA 12/07/16 09:35 Vent Rate 6 12/07/16 09:35 Inspired O2 30 12/07/16 09:35 Tidal Volume 450 12/07/16 09:35 PEEP 5 12/07/16 09:35 Pressure (ins/psv/peep) 10 12/07/16 09:35 Critical Value E.ZUNIGA 12/07/16 09:35 Sodium 149 mEq/L (136-145) H 12/07/16 04:25 Potassium 3.3 mEq/L (3.5-5.1) L 12/07/16 04:25 Chloride 123 mEq/L (98-107) H 12/07/16 04:25 Carbon Dioxide 15.8 mEq/L (21.0-31.0) L 12/07/16 04:25 Anion Gap 13.5 (7.0-16.0) 12/07/16 04:25 BUN 75 mg/dL (7-25) H 12/07/16 04:25 Creatinine 2.9 mg/dL (0.6-1.2) H 12/07/16 04:25 Est GFR ( Amer) TNP 12/07/16 04:25 Est GFR (Non-Af Amer) TNP 12/07/16 04:25 BUN/Creatinine Ratio 25.9 12/07/16 04:25 Glucose 195 mg/dL (70-105) H 12/07/16 04:25 POC Glucose 262 MG/DL (70 - 105) H 12/06/16 20:57 Hemoglobin A1c % 9.0 % (4.0-6.0) H 12/01/16 18:25 Whole Bld Lactic Acid 2.84 mmol/L (0.60-1.99) H* 12/05/16 12:05 Uric Acid 11.6 mg/dL (2.3-6.6) H 12/03/16 05:35 Calcium 8.5 mg/dL (8.6-10.3) L 12/07/16 04:25 Magnesium 2.7 mg/dL (1.9-2.7) 12/03/16 05:35 Total Bilirubin 0.5 mg/dL (0.3-1.0) 12/05/16 10:05 AST 8 U/L (13-39) L 12/05/16 10:05 ALT 3 U/L (7-52) L 12/05/16 10:05 Alkaline Phosphatase 83 U/L (34-104) 12/05/16 10:05 Total Protein 5.2 gm/dL (6.0-8.3) L 12/05/16 10:05 Albumin 2.4 gm/dL (3.7-5.3) L 12/05/16 10:05 Globulin 2.8 gm/dL 12/05/16 10:05 Albumin/Globulin Ratio 0.9 (1.0-1.8) L 12/05/16 10:05 TSH 2.49 uIU/ml (0.34-5.60) 12/03/16 05:35 Urine Source SOTO PORT 12/02/16 14:56 Urine Color YELLOW 12/02/16 14:56 Urine Clarity HAZY (CLEAR) 12/02/16 14:56 Urine pH 8.0 (4.6 - 8.0) 12/02/16 14:56 Ur Specific Gilbert 1.015 (1.005-1.030) 12/02/16 14:56 Urine Protein 100 mg/dL (NEGATIVE) H 12/02/16 14:56 Urine Glucose (UA) 500 mg/dL (NEGATIVE) H 12/02/16 14:56 Urine Ketones NEGATIVE mg/dL (NEGATIVE) 12/02/16 14:56 Urine Blood MODERATE (NEGATIVE) H 12/02/16 14:56 Urine Nitrate POSITIVE (NEGATIVE) H 12/02/16 14:56 Urine Bilirubin NEGATIVE (NEGATIVE) 12/02/16 14:56 Urine Urobilinogen 0.2 E.U./dL (0.2 - 1.0) 12/02/16 14:56 Ur Leukocyte Esterase MODERATE (NEGATIVE) H 12/02/16 14:56 Urine RBC 5-10 /hpf (0-5) H 12/02/16 14:56 Urine WBC 50-100 /hpf (0-5) H 12/02/16 14:56 Ur Epithelial Cells FEW /lpf (FEW) 12/02/16 14:56 Triple Phos Crystals MODERATE /hpf (FEW) 12/02/16 14:56 Urine Bacteria MANY /hpf (NONE SEEN) 12/02/16 14:56 Urine Osmolality 488 mOsmol/kg 12/03/16 06:30 Ur Random Sodium 75 mmol/L 12/03/16 06:30 Urine Creatinine 49.0 mg/dl (28.0-217.0) 12/03/16 06:30 Blood Type O POSITIVE 12/02/16 05:05 Antibody Screen NEGATIVE 12/02/16 05:05 Crossmatch See Detail 12/02/16 05:05 - Physical Exam Vitals and I&O: Vital Signs Temp 98.6 F 12/07/16 08:00 Pulse 104 12/07/16 09:05 Resp 18 12/07/16 09:00 BP 111/55 12/07/16 09:00 Pulse Ox 100 12/07/16 09:05 Intake & Output 12/06/16 12/07/16 12/07/16 18:59 06:59 18:59 Intake Total 590 1540 Output Total 503 400 Balance 87 1140 Weight (lbs) 53.07 kg 53.615 kg Intake: Intake, IV Amount 250 1200 Dextrose 5% 1,000 ml @ 1000 100 mls/hr IV .Q10H [facility] Rx#:[id number] Piperacillin Sodium/ 50 100 Tazobact 2.25 gm In Dextrose 5% 50 ml @ 100 mls/hr IV Q8H [facility] Rx#: [id number] metroNIDAZOLE 500mg/NS 200 100 100mL 500 mg In Premix Fluid 1 bag @ 100 mls/hr IV Q8H [facility] Rx#:[id number] Tube Feeding 240 240 Other 100 100 Output: Urine 500 400 Stool 3 0 Active Medications: Current Medications Acetaminophen (Tylenol) 650 mg PO Q6H PRN PRN Reason: Mild Pain or Fever >101 Stop: 01/31/17 11:18 Albuterol/Ipratropium (Duoneb Neb) 3 ml HHN Q6HRT [facility] Stop: 02/04/17 12:59 Last Admin: 12/07/16 06:43 Dose: 3 ml Albuterol/Ipratropium (Duoneb Neb) 3 ml HHN Q2HRT PRN PRN Reason: Wheezing Stop: 02/04/17 10:02 Last Admin: 12/06/16 10:23 Dose: 3 ml Bisacodyl (Dulcolax 5 Mg Ec Tab) 10 mg PO BID [facility] Stop: 01/31/17 16:59 Last Admin: 12/07/16 08:50 Dose: 10 mg Chlorhexidine Gluconate (Peridex) 15 ml MM 08,1999 [facility] Stop: 02/03/17 19:59 Last Admin: 12/07/16 08:43 Dose: 15 ml Epoetin Esequiel (Epogen) 10,000 units SUBQ TuThSa [facility] Stop: 02/01/17 14:29 Last Admin: 12/06/16 17:01 Dose: 10,000 units Hydromorphone HCl (Dilaudid) 1 mg IVP Q6HR PRN PRN Reason: Pain (Moderate-Severe) Stop: 02/04/17 08:11 Last Admin: 12/07/16 01:35 Dose: 1 mg Piperacillin Sod/Tazobactam (Sod 2.25 gm/ Dextrose) 50 mls @ 100 mls/hr IV Q8H [facility] Stop: 02/03/17 10:59 Last Infusion: 12/07/16 03:35 Dose: Infused Metronidazole 500 mg/ (Miscellaneous) 100 mls @ 100 mls/hr IV Q8H [facility] Stop: 02/03/17 09:59 Last Infusion: 12/07/16 02:40 Dose: Infused Dextrose (D5w) 1,000 mls @ 100 mls/hr IV .Q10H [facility] Stop: 02/04/17 09:29 Last Admin: 12/06/16 23:29 Dose: 100 mls/hr Insulin Aspart (Novolog Insulin Sliding Scale) 0 units SUBQ ACHS [facility] PRN Reason: Protocol Stop: 01/31/17 07:29 Last Admin: 12/07/16 06:32 Dose: 3 units Insulin Detemir (Levemir Insulin) 10 units SUBQ HS [facility] PRN Reason: Protocol Stop: 02/03/17 20:59 Last Admin: 12/06/16 21:02 Dose: 10 unit Lorazepam (Ativan) 1 mg IVP Q8HR PRN; Protocol PRN Reason: AGITATION Stop: 02/04/17 19:42 Last Admin: 12/06/16 21:16 Dose: 1 mg Miscellaneous (Vte Chemical Prophylaxis Screen/ Admission) 1 ea PRN PRN PRN Reason: PROTOCOL Stop: 01/31/17 13:38 Miscellaneous (Clinical Monitoring) 1 [facility] DAILY PRN PRN Reason: RENAL Stop: 02/04/17 08:05 Pantoprazole Sodium (Protonix) 40 mg IVP DAILY [facility] Stop: 02/01/17 08:59 Last Admin: 12/07/16 08:47 Dose: 40 mg Potassium Chloride (Potassium Chloride Elixir) 20 meq GT DAILY [facility] Stop: 02/05/17 09:14 Sodium Bicarbonate (Sodium Bicarbonate) 650 mg PO BID [facility] PRN Reason: Protocol Stop: 01/31/17 16:59 Last Admin: 12/07/16 08:47 Dose: 650 mg General: No acute distress, Other (Patient is awake, restless trying to take off tubes.) HEENT: Atraumatic, Mucous membr. moist/pink, Other (Patient is intubated) Neck: Supple, +2 carotid pulse wo bruit Cardiovascular: Regular rate, Normal S1, Normal S2 Lungs: Clear to auscultation, Other (few rhonchi) Abdomen: Bowel sounds, Soft, Other (PEG in place, Colostomy in place) Extremities: Other (No edema), no Edema Neurological: Sensation intact, Other (Non ambulatory) Skin: Other (Decubit sacral ulcer stage IV), no Significant lesion Psych/Mental Status: Mood NL, Other (Awake, alert, restless, intubated) - Procedures Procedures: Procedures Procedure Code Date BYPASS DESCENDING COLON TO CUTANEOUS, OPEN APPROACH [id number] 12/02/16 COLOSTOMY 01066 12/02/16 CHAGO BONE 20 SQ CM/< 37534 12/02/16 CHAGO MUSC/FASCIA 20 SQ CM/< 15719 10/24/16 CHAGO SUBQ TISSUE 20 SQ CM/< [id number] 12/02/16 EXCISION OF L FOOT SUBCU/FASCIA, OPEN APPROACH [id number] 12/02/16 EXCISION OF LEFT HIP MUSCLE, OPEN APPROACH [id number] 10/24/16 EXCISION OF LEFT PELVIC BONE, OPEN APPROACH [id number] 12/02/16 EXCISION OF R FOOT SUBCU/FASCIA, OPEN APPROACH [id number] 12/02/16 Assessment/Plan - Problem List Patient Problems: All Active Problems POOR ORAL INTAKE AND SWALLOWING (Acute) SACRAL AND BILATERAL BUTTOCK SKIN ULCERS (Acute) Nutritional Asmnt/Malnutr-PDOC - Dietary Evaluation Malnutrition Findings (Please click <Entered> for more info): Nutritional Asmnt/Malnutrition Start: 12/02/16 14: 44 Text: Status: Complete Freq: Document 12/02/16 14:44 GSUN (Rec: 12/02/16 15:19 GSUN [id number]) Nutritional Asmnt/Malnutrition Patient General Information Nutritional Screening Consult Diagnosis AKF, sacral decubitus ulcer stage IV, HTN, DM, dementia, chronic anemia Pertinent Medical Hx/Surgical Hx CAD, CVA, dementia, psychosis, muscle atrophy, AKF, DM, decubitus ulcer stage IV Subjective Information 81 year old female from SNF. RD consult for low Elliot and elevated blood glucose. Pt was awake, unable to provide nutrition hx. Family at bedside, spoke to family and HAI Pimentel regarding nutrition plan of care, PEG placement consent obtained. Family has no other questions at this time. 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 Per nursing adm notes , 4-5lb wt loss in 2 weeks. Per family, unaware of UBW, aware of recent wt loss, stated pt stopped eating ~3-4 days ago. Loose skin, moderate to severe muslce fat wasting to chest and clavicles. Current Diet Order/ Nutrition Support NPO Pertinent Medications Dulcolax, D5-0.45ns, Novolog Pertinent Labs 12/01: A1c 9H 12/02: sodium 173H, potassium 5.3H, BUN 169H, creatinie 5.8H , glucose 238H, calcium 10.8H Nutritional Hx/Data Height 1.52 m Height (Calculated Centimeters) 152.4 Current Weight (lbs) 43.545 kg Weight (Calculated Kilograms) 43.5 Weight (Calculated Grams) 45252.9 [place] Body Weight 100 Recent Weight Change Yes Weight Status Approriate GI Symptoms Usual diet at home [facility]: pureed, [facility] , [facility] Skin Integrity/Comment: Elliot 11. Sacral decubitus ulcer stage IV. Estimated Nutritional Goals Calories/Kcals/Kg IBW 100lb/45.5kg Kcals Calculated 1365-1593kcal (30-35kcal/kg) Protein Calculated 68-73g (1.4-1.6g/kg, ulcer vs renal, ?HD) Fluid: ml Per MD Nutritional Problem 3. Problem Problem Altered nutrition related laboratory values related to Etiology DM aeb Signs/Symptoms: A1c 9H, glucose 238H 2. Problem Problem Increased kcal and prot needs related to Etiology skin integrity, recent weight loss aeb Signs/Symptoms: Sacral decubitus ulcer stage IV, wt loss 4-5lb in 2 weeks per nursing adm notes, moderate to seevre muslce/fat wasting to chest and clavicles 1. Problem Problem Impaired nutrient utilization related to Etiology acute kidney injury aeb Signs/Symptoms: potassium 5.3H, BUN 169H, creatinie 5.8H, calcium 10.8H Intervention/Recommendation Comments 1. Discussed enteral nutrition with family. Family has no further questions at this time . 2. When medically feasible to initiate feeding, recommend Novasource Renal at 30ml/hr x 24hrs, providing 720ml total volume, 1440kcal, 65g protein. Initiate at 10ml/hr for first 24 hrs, monitor for refeeding syndrome and tolerance, increase by 5ml/hr q12hrs until goal. 3. Recommend 1 packet Arginaid daily via tube for wound healing. 4. Monitor weight closely. Hx 4-5lb wt loss in 2 weeks per nursing adm note. Expected Outcomes/Goals Expected Outcomes/Goals 1. Pt to meet at least 75% of estimated nutritinoal eneds on tube feeding with tolerance.
--- NOTE | 2016-12-07 09:53 | General Progress Note ---
Subjective - Review of Systems Service Date: 12/07/16 Events since last encounter: labs noted minimal colostomy output ABG noted, extubation? Objective - Results Result Diagrams: 12/07/16 04:25 12/07/16 04:25 Recent Labs: Laboratory Last Values WBC 9.1 Th/cmm (4.8-10.8) 12/07/16 04:25 Corrected WBC (auto) 8.8 Th/cmm (4.8-10.8) 12/01/16 18:25 RBC 3.13 Mil/cmm (3.80-5.20) L 12/07/16 04:25 Hgb 9.0 gm/dL (12-16) L 12/07/16 04:25 Hct 27.4 % (41.0-60) L 12/07/16 04:25 MCV 87.4 fl (81-100) 12/07/16 04:25 MCH 28.7 pg (27.0-31.0) 12/07/16 04:25 MCHC Differential 32.9 pg (28.0-36.0) 12/07/16 04:25 RDW 19.3 % (11.5-20.0) 12/07/16 04:25 Plt Count 77 Th/cmm (150-400) L 12/07/16 04:25 MPV 14.2 fl 12/07/16 04:25 Neutrophils % 83.1 % (40.0-80.0) H 12/07/16 04:25 Band Neutrophils % 8 % (0-10) 12/04/16 04:50 Lymphocytes % 10.5 % (20.0-50.0) L 12/07/16 04:25 Monocytes % 4.7 % (2.0-10.0) 12/07/16 04:25 Eosinophils % 1.7 % (0.0-5.0) 12/07/16 04:25 Basophils % 0.0 % (0.0-2.0) 12/07/16 04:25 Neutrophils (Manual) 77 % (40-80) 12/04/16 04:50 Lymphocytes 10 % (20-50) L 12/04/16 04:50 Monocytes 5 % (2-10) 12/04/16 04:50 Eosinophils 3 % (0-5) 12/03/16 05:35 Nucleated RBCs 5.0 % (0-0) H 12/01/16 18:25 Atypical Lymphocytes 1 % 12/01/16 18:25 Platelet Estimate SLIGHT DECREASED (NORMAL) 12/04/16 04:50 Platelet Morphology NORMAL (NORMAL) 12/01/16 18:25 Anisocytosis 2+ 12/03/16 05:35 RBC Morph Micro Appear ABNORMAL (NORMAL) 12/01/16 18:25 Eos Smear Source URINE 12/03/16 06:30 Eos Smear Total Cells NONE SEEN (NONE SEEN) 12/03/16 06:30 PT 11.2 SECONDS (9.5-11.5) 12/03/16 05:35 INR 1.08 (0.5-1.4) 12/03/16 05:35 PTT (Actin FS) 19.6 SECONDS (26.0-38.0) L 12/01/16 18:25 Specimen Source Arterial 12/07/16 09:35 Sample Site LB 12/07/16 09:35 pH 7.38 (7.35-7.45) 12/07/16 09:35 pCO2 23.0 mmHg (35.0-45.0) L* 12/07/16 09:35 pO2 130.0 mmHg (80.0-100.0) H 12/07/16 09:35 HCO3 17.4 mEq/L (20.0-26.0) L 12/07/16 09:35 Base Excess -9.7 mEq/L (-3.0-3.0) L 12/07/16 09:35 O2 Saturation 99.0 % (92.0-100.0) 12/07/16 09:35 Isidro Test NA 12/07/16 09:35 Vent Rate 6 12/07/16 09:35 Inspired O2 30 12/07/16 09:35 Tidal Volume 450 12/07/16 09:35 PEEP 5 12/07/16 09:35 Pressure (ins/psv/peep) 10 12/07/16 09:35 Critical Value E.ZUNIGA 12/07/16 09:35 Sodium 149 mEq/L (136-145) H 12/07/16 04:25 Potassium 3.3 mEq/L (3.5-5.1) L 12/07/16 04:25 Chloride 123 mEq/L (98-107) H 12/07/16 04:25 Carbon Dioxide 15.8 mEq/L (21.0-31.0) L 12/07/16 04:25 Anion Gap 13.5 (7.0-16.0) 12/07/16 04:25 BUN 75 mg/dL (7-25) H 12/07/16 04:25 Creatinine 2.9 mg/dL (0.6-1.2) H 12/07/16 04:25 Est GFR ( Amer) TNP 12/07/16 04:25 Est GFR (Non-Af Amer) TNP 12/07/16 04:25 BUN/Creatinine Ratio 25.9 12/07/16 04:25 Glucose 195 mg/dL (70-105) H 12/07/16 04:25 POC Glucose 262 MG/DL (70 - 105) H 12/06/16 20:57 Hemoglobin A1c % 9.0 % (4.0-6.0) H 12/01/16 18:25 Whole Bld Lactic Acid 2.84 mmol/L (0.60-1.99) H* 12/05/16 12:05 Uric Acid 11.6 mg/dL (2.3-6.6) H 12/03/16 05:35 Calcium 8.5 mg/dL (8.6-10.3) L 12/07/16 04:25 Magnesium 2.7 mg/dL (1.9-2.7) 12/03/16 05:35 Total Bilirubin 0.5 mg/dL (0.3-1.0) 12/05/16 10:05 AST 8 U/L (13-39) L 12/05/16 10:05 ALT 3 U/L (7-52) L 12/05/16 10:05 Alkaline Phosphatase 83 U/L (34-104) 12/05/16 10:05 Total Protein 5.2 gm/dL (6.0-8.3) L 12/05/16 10:05 Albumin 2.4 gm/dL (3.7-5.3) L 12/05/16 10:05 Globulin 2.8 gm/dL 12/05/16 10:05 Albumin/Globulin Ratio 0.9 (1.0-1.8) L 12/05/16 10:05 TSH 2.49 uIU/ml (0.34-5.60) 12/03/16 05:35 Urine Source SOTO PORT 12/02/16 14:56 Urine Color YELLOW 12/02/16 14:56 Urine Clarity HAZY (CLEAR) 12/02/16 14:56 Urine pH 8.0 (4.6 - 8.0) 12/02/16 14:56 Ur Specific [place] 1.015 (1.005-1.030) 12/02/16 14:56 Urine Protein 100 mg/dL (NEGATIVE) H 12/02/16 14:56 Urine Glucose (UA) 500 mg/dL (NEGATIVE) H 12/02/16 14:56 Urine Ketones NEGATIVE mg/dL (NEGATIVE) 12/02/16 14:56 Urine Blood MODERATE (NEGATIVE) H 12/02/16 14:56 Urine Nitrate POSITIVE (NEGATIVE) H 12/02/16 14:56 Urine Bilirubin NEGATIVE (NEGATIVE) 12/02/16 14:56 Urine Urobilinogen 0.2 E.U./dL (0.2 - 1.0) 12/02/16 14:56 Ur Leukocyte Esterase MODERATE (NEGATIVE) H 12/02/16 14:56 Urine RBC 5-10 /hpf (0-5) H 12/02/16 14:56 Urine WBC 50-100 /hpf (0-5) H 12/02/16 14:56 Ur Epithelial Cells FEW /lpf (FEW) 12/02/16 14:56 Triple Phos Crystals MODERATE /hpf (FEW) 12/02/16 14:56 Urine Bacteria MANY /hpf (NONE SEEN) 12/02/16 14:56 Urine Osmolality 488 mOsmol/kg 12/03/16 06:30 Ur Random Sodium 75 mmol/L 12/03/16 06:30 Urine Creatinine 49.0 mg/dl (28.0-217.0) 12/03/16 06:30 Blood Type O POSITIVE 12/02/16 05:05 Antibody Screen NEGATIVE 12/02/16 05:05 Crossmatch See Detail 12/02/16 05:05 - Physical Exam Vitals and I&O: Vital Signs Temp 98.6 F 12/07/16 08:00 Pulse 104 12/07/16 09:05 Resp 18 12/07/16 09:00 BP 111/55 12/07/16 09:00 Pulse Ox 100 12/07/16 09:05 Intake & Output 12/06/16 12/07/16 12/07/16 18:59 06:59 18:59 Intake Total 590 1540 Output Total 503 400 Balance 87 1140 Weight (lbs) 53.07 kg 53.615 kg Intake: Intake, IV Amount 250 1200 Dextrose 5% 1,000 ml @ 1000 100 mls/hr IV .Q10H [facility] Rx#:[id number] Piperacillin Sodium/ 50 100 Tazobact 2.25 gm In Dextrose 5% 50 ml @ 100 mls/hr IV Q8H [facility] Rx#: [id number] metroNIDAZOLE 500mg/NS 200 100 100mL 500 mg In Premix Fluid 1 bag @ 100 mls/hr IV Q8H [facility] Rx#:[id number] Tube Feeding 240 240 Other 100 100 Output: Urine 500 400 Stool 3 0 Active Medications: Current Medications Acetaminophen (Tylenol) 650 mg PO Q6H PRN PRN Reason: Mild Pain or Fever >101 Stop: 01/31/17 11:18 Albuterol/Ipratropium (Duoneb Neb) 3 ml HHN Q6HRT [facility] Stop: 02/04/17 12:59 Last Admin: 12/07/16 06:43 Dose: 3 ml Albuterol/Ipratropium (Duoneb Neb) 3 ml HHN Q2HRT PRN PRN Reason: Wheezing Stop: 02/04/17 10:02 Last Admin: 12/06/16 10:23 Dose: 3 ml Bisacodyl (Dulcolax 5 Mg Ec Tab) 10 mg PO BID [facility] Stop: 01/31/17 16:59 Last Admin: 12/07/16 08:50 Dose: 10 mg Chlorhexidine Gluconate (Peridex) 15 ml MM 08,1999 [facility] Stop: 02/03/17 19:59 Last Admin: 12/07/16 08:43 Dose: 15 ml Epoetin Esequiel (Epogen) 10,000 units SUBQ TuThSa [facility] Stop: 02/01/17 14:29 Last Admin: 12/06/16 17:01 Dose: 10,000 units Hydromorphone HCl (Dilaudid) 1 mg IVP Q6HR PRN PRN Reason: Pain (Moderate-Severe) Stop: 02/04/17 08:11 Last Admin: 12/07/16 01:35 Dose: 1 mg Piperacillin Sod/Tazobactam (Sod 2.25 gm/ Dextrose) 50 mls @ 100 mls/hr IV Q8H [facility] Stop: 02/03/17 10:59 Last Infusion: 12/07/16 03:35 Dose: Infused Metronidazole 500 mg/ (Miscellaneous) 100 mls @ 100 mls/hr IV Q8H [facility] Stop: 02/03/17 09:59 Last Infusion: 12/07/16 02:40 Dose: Infused Dextrose (D5w) 1,000 mls @ 100 mls/hr IV .Q10H [facility] Stop: 02/04/17 09:29 Last Admin: 12/06/16 23:29 Dose: 100 mls/hr Insulin Aspart (Novolog Insulin Sliding Scale) 0 units SUBQ ACHS [facility] PRN Reason: Protocol Stop: 01/31/17 07:29 Last Admin: 12/07/16 06:32 Dose: 3 units Insulin Detemir (Levemir Insulin) 10 units SUBQ HS [facility] PRN Reason: Protocol Stop: 02/03/17 20:59 Last Admin: 12/06/16 21:02 Dose: 10 unit Lorazepam (Ativan) 1 mg IVP Q8HR PRN; Protocol PRN Reason: AGITATION Stop: 02/04/17 19:42 Last Admin: 12/06/16 21:16 Dose: 1 mg Miscellaneous (Vte Chemical Prophylaxis Screen/ Admission) 1 ea PRN PRN PRN Reason: PROTOCOL Stop: 01/31/17 13:38 Miscellaneous (Clinical Monitoring) 1 [facility] DAILY PRN PRN Reason: RENAL Stop: 02/04/17 08:05 Pantoprazole Sodium (Protonix) 40 mg IVP DAILY [facility] Stop: 02/01/17 08:59 Last Admin: 12/07/16 08:47 Dose: 40 mg Potassium Chloride (Potassium Chloride Elixir) 20 meq GT DAILY [facility] Stop: 02/05/17 09:14 Sodium Bicarbonate (Sodium Bicarbonate) 650 mg PO BID [facility] PRN Reason: Protocol Stop: 01/31/17 16:59 Last Admin: 12/07/16 08:47 Dose: 650 mg General: No acute distress, Other (Patient is awake, restless trying to take off tubes.) HEENT: Atraumatic, Mucous membr. moist/pink, Other (Patient is intubated) Neck: Supple, +2 carotid pulse wo bruit Cardiovascular: Regular rate, Normal S1, Normal S2 Lungs: Clear to auscultation, Other (few rhonchi) Abdomen: Bowel sounds, Soft, Other (PEG in place, Colostomy in place) Extremities: Other (No edema), no Edema Neurological: Sensation intact, Other (Non ambulatory) Skin: Other (Decubit sacral ulcer stage IV), no Significant lesion Psych/Mental Status: Mood NL, Other (Awake, alert, restless, intubated) - Procedures Procedures: Procedures Procedure Code Date BYPASS DESCENDING COLON TO CUTANEOUS, OPEN APPROACH [id number] 12/02/16 COLOSTOMY 57286 12/02/16 CHAGO BONE 20 SQ CM/< [id number] 12/02/16 CHAGO MUSC/FASCIA 20 SQ CM/< [id number] 10/24/16 CHAGO SUBQ TISSUE 20 SQ CM/< 96616 12/02/16 EXCISION OF L FOOT SUBCU/FASCIA, OPEN APPROACH [id number] 12/02/16 EXCISION OF LEFT HIP MUSCLE, OPEN APPROACH [id number] 10/24/16 EXCISION OF LEFT PELVIC BONE, OPEN APPROACH [id number] 12/02/16 EXCISION OF R FOOT SUBCU/FASCIA, OPEN APPROACH [id number] 12/02/16 Assessment/Plan - Problem List Patient Problems: All Active Problems POOR ORAL INTAKE AND SWALLOWING (Acute) SACRAL AND BILATERAL BUTTOCK SKIN ULCERS (Acute) Nutritional Asmnt/Malnutr-PDOC - Dietary Evaluation Malnutrition Findings (Please click <Entered> for more info): Nutritional Asmnt/Malnutrition Start: 12/02/16 14: 44 Text: Status: Complete Freq: Document 12/02/16 14:44 GSUN (Rec: 12/02/16 15:19 GSUN [id number]) Nutritional Asmnt/Malnutrition Patient General Information Nutritional Screening Consult Diagnosis AKF, sacral decubitus ulcer stage IV, HTN, DM, dementia, chronic anemia Pertinent Medical Hx/Surgical Hx CAD, CVA, dementia, psychosis, muscle atrophy, AKF, DM, decubitus ulcer stage IV Subjective Information 81 year old female from SNF. RD consult for low Elliot and elevated blood glucose. Pt was awake, unable to provide nutrition hx. Family at bedside, spoke to family and HAI Pimentel regarding nutrition plan of care, PEG placement consent obtained. Family has no other questions at this time. 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 Per nursing adm notes , 4-5lb wt loss in 2 weeks. Per family, unaware of UBW, aware of recent wt loss, stated pt stopped eating ~3-4 days ago. Loose skin, moderate to severe muslce fat wasting to chest and clavicles. Current Diet Order/ Nutrition Support NPO Pertinent Medications Dulcolax, D5-0.45ns, Novolog Pertinent Labs 12/01: A1c 9H 12/02: sodium 173H, potassium 5.3H, BUN 169H, creatinie 5.8H , glucose 238H, calcium 10.8H Nutritional Hx/Data Height 1.52 m Height (Calculated Centimeters) 152.4 Current Weight (lbs) 43.545 kg Weight (Calculated Kilograms) 43.5 Weight (Calculated Grams) 25704.9 [place] Body Weight 100 Recent Weight Change Yes Weight Status Approriate GI Symptoms Usual diet at home [facility]: pureed, [facility] , [facility] Skin Integrity/Comment: Elliot 11. Sacral decubitus ulcer stage IV. Estimated Nutritional Goals Calories/Kcals/Kg IBW 100lb/45.5kg Kcals Calculated 1365-1593kcal (30-35kcal/kg) Protein Calculated 68-73g (1.4-1.6g/kg, ulcer vs renal, ?HD) Fluid: ml Per MD Nutritional Problem 3. Problem Problem Altered nutrition related laboratory values related to Etiology DM aeb Signs/Symptoms: A1c 9H, glucose 238H 2. Problem Problem Increased kcal and prot needs related to Etiology skin integrity, recent weight loss aeb Signs/Symptoms: Sacral decubitus ulcer stage IV, wt loss 4-5lb in 2 weeks per nursing adm notes, moderate to seevre muslce/fat wasting to chest and clavicles 1. Problem Problem Impaired nutrient utilization related to Etiology acute kidney injury aeb Signs/Symptoms: potassium 5.3H, BUN 169H, creatinie 5.8H, calcium 10.8H Intervention/Recommendation Comments 1. Discussed enteral nutrition with family. Family has no further questions at this time . 2. When medically feasible to initiate feeding, recommend Novasource Renal at 30ml/hr x 24hrs, providing 720ml total volume, 1440kcal, 65g protein. Initiate at 10ml/hr for first 24 hrs, monitor for refeeding syndrome and tolerance, increase by 5ml/hr q12hrs until goal. 3. Recommend 1 packet Arginaid daily via tube for wound healing. 4. Monitor weight closely. Hx 4-5lb wt loss in 2 weeks per nursing adm note. Expected Outcomes/Goals Expected Outcomes/Goals 1. Pt to meet at least 75% of estimated nutritinoal eneds on tube feeding with tolerance.
--- NOTE | 2016-12-07 09:53 | General Progress Note ---
Subjective - Review of Systems Service Date: 12/07/16 Events since last encounter: labs noted minimal colostomy output ABG noted, extubation? Objective - Results Result Diagrams: 12/07/16 04:25 12/07/16 04:25 Recent Labs: Laboratory Last Values WBC 9.1 Th/cmm (4.8-10.8) 12/07/16 04:25 Corrected WBC (auto) 8.8 Th/cmm (4.8-10.8) 12/01/16 18:25 RBC 3.13 Mil/cmm (3.80-5.20) L 12/07/16 04:25 Hgb 9.0 gm/dL (12-16) L 12/07/16 04:25 Hct 27.4 % (41.0-60) L 12/07/16 04:25 MCV 87.4 fl (81-100) 12/07/16 04:25 MCH 28.7 pg (27.0-31.0) 12/07/16 04:25 MCHC Differential 32.9 pg (28.0-36.0) 12/07/16 04:25 RDW 19.3 % (11.5-20.0) 12/07/16 04:25 Plt Count 77 Th/cmm (150-400) L 12/07/16 04:25 MPV 14.2 fl 12/07/16 04:25 Neutrophils % 83.1 % (40.0-80.0) H 12/07/16 04:25 Band Neutrophils % 8 % (0-10) 12/04/16 04:50 Lymphocytes % 10.5 % (20.0-50.0) L 12/07/16 04:25 Monocytes % 4.7 % (2.0-10.0) 12/07/16 04:25 Eosinophils % 1.7 % (0.0-5.0) 12/07/16 04:25 Basophils % 0.0 % (0.0-2.0) 12/07/16 04:25 Neutrophils (Manual) 77 % (40-80) 12/04/16 04:50 Lymphocytes 10 % (20-50) L 12/04/16 04:50 Monocytes 5 % (2-10) 12/04/16 04:50 Eosinophils 3 % (0-5) 12/03/16 05:35 Nucleated RBCs 5.0 % (0-0) H 12/01/16 18:25 Atypical Lymphocytes 1 % 12/01/16 18:25 Platelet Estimate SLIGHT DECREASED (NORMAL) 12/04/16 04:50 Platelet Morphology NORMAL (NORMAL) 12/01/16 18:25 Anisocytosis 2+ 12/03/16 05:35 RBC Morph Micro Appear ABNORMAL (NORMAL) 12/01/16 18:25 Eos Smear Source URINE 12/03/16 06:30 Eos Smear Total Cells NONE SEEN (NONE SEEN) 12/03/16 06:30 PT 11.2 SECONDS (9.5-11.5) 12/03/16 05:35 INR 1.08 (0.5-1.4) 12/03/16 05:35 PTT (Actin FS) 19.6 SECONDS (26.0-38.0) L 12/01/16 18:25 Specimen Source Arterial 12/07/16 09:35 Sample Site LB 12/07/16 09:35 pH 7.38 (7.35-7.45) 12/07/16 09:35 pCO2 23.0 mmHg (35.0-45.0) L* 12/07/16 09:35 pO2 130.0 mmHg (80.0-100.0) H 12/07/16 09:35 HCO3 17.4 mEq/L (20.0-26.0) L 12/07/16 09:35 Base Excess -9.7 mEq/L (-3.0-3.0) L 12/07/16 09:35 O2 Saturation 99.0 % (92.0-100.0) 12/07/16 09:35 Isidro Test NA 12/07/16 09:35 Vent Rate 6 12/07/16 09:35 Inspired O2 30 12/07/16 09:35 Tidal Volume 450 12/07/16 09:35 PEEP 5 12/07/16 09:35 Pressure (ins/psv/peep) 10 12/07/16 09:35 Critical Value E.ZUNIGA 12/07/16 09:35 Sodium 149 mEq/L (136-145) H 12/07/16 04:25 Potassium 3.3 mEq/L (3.5-5.1) L 12/07/16 04:25 Chloride 123 mEq/L (98-107) H 12/07/16 04:25 Carbon Dioxide 15.8 mEq/L (21.0-31.0) L 12/07/16 04:25 Anion Gap 13.5 (7.0-16.0) 12/07/16 04:25 BUN 75 mg/dL (7-25) H 12/07/16 04:25 Creatinine 2.9 mg/dL (0.6-1.2) H 12/07/16 04:25 Est GFR ( Amer) TNP 12/07/16 04:25 Est GFR (Non-Af Amer) TNP 12/07/16 04:25 BUN/Creatinine Ratio 25.9 12/07/16 04:25 Glucose 195 mg/dL (70-105) H 12/07/16 04:25 POC Glucose 262 MG/DL (70 - 105) H 12/06/16 20:57 Hemoglobin A1c % 9.0 % (4.0-6.0) H 12/01/16 18:25 Whole Bld Lactic Acid 2.84 mmol/L (0.60-1.99) H* 12/05/16 12:05 Uric Acid 11.6 mg/dL (2.3-6.6) H 12/03/16 05:35 Calcium 8.5 mg/dL (8.6-10.3) L 12/07/16 04:25 Magnesium 2.7 mg/dL (1.9-2.7) 12/03/16 05:35 Total Bilirubin 0.5 mg/dL (0.3-1.0) 12/05/16 10:05 AST 8 U/L (13-39) L 12/05/16 10:05 ALT 3 U/L (7-52) L 12/05/16 10:05 Alkaline Phosphatase 83 U/L (34-104) 12/05/16 10:05 Total Protein 5.2 gm/dL (6.0-8.3) L 12/05/16 10:05 Albumin 2.4 gm/dL (3.7-5.3) L 12/05/16 10:05 Globulin 2.8 gm/dL 12/05/16 10:05 Albumin/Globulin Ratio 0.9 (1.0-1.8) L 12/05/16 10:05 TSH 2.49 uIU/ml (0.34-5.60) 12/03/16 05:35 Urine Source SOTO PORT 12/02/16 14:56 Urine Color YELLOW 12/02/16 14:56 Urine Clarity HAZY (CLEAR) 12/02/16 14:56 Urine pH 8.0 (4.6 - 8.0) 12/02/16 14:56 Ur Specific [place] 1.015 (1.005-1.030) 12/02/16 14:56 Urine Protein 100 mg/dL (NEGATIVE) H 12/02/16 14:56 Urine Glucose (UA) 500 mg/dL (NEGATIVE) H 12/02/16 14:56 Urine Ketones NEGATIVE mg/dL (NEGATIVE) 12/02/16 14:56 Urine Blood MODERATE (NEGATIVE) H 12/02/16 14:56 Urine Nitrate POSITIVE (NEGATIVE) H 12/02/16 14:56 Urine Bilirubin NEGATIVE (NEGATIVE) 12/02/16 14:56 Urine Urobilinogen 0.2 E.U./dL (0.2 - 1.0) 12/02/16 14:56 Ur Leukocyte Esterase MODERATE (NEGATIVE) H 12/02/16 14:56 Urine RBC 5-10 /hpf (0-5) H 12/02/16 14:56 Urine WBC 50-100 /hpf (0-5) H 12/02/16 14:56 Ur Epithelial Cells FEW /lpf (FEW) 12/02/16 14:56 Triple Phos Crystals MODERATE /hpf (FEW) 12/02/16 14:56 Urine Bacteria MANY /hpf (NONE SEEN) 12/02/16 14:56 Urine Osmolality 488 mOsmol/kg 12/03/16 06:30 Ur Random Sodium 75 mmol/L 12/03/16 06:30 Urine Creatinine 49.0 mg/dl (28.0-217.0) 12/03/16 06:30 Blood Type O POSITIVE 12/02/16 05:05 Antibody Screen NEGATIVE 12/02/16 05:05 Crossmatch See Detail 12/02/16 05:05 - Physical Exam Vitals and I&O: Vital Signs Temp 98.6 F 12/07/16 08:00 Pulse 104 12/07/16 09:05 Resp 18 12/07/16 09:00 BP 111/55 12/07/16 09:00 Pulse Ox 100 12/07/16 09:05 Intake & Output 12/06/16 12/07/16 12/07/16 18:59 06:59 18:59 Intake Total 590 1540 Output Total 503 400 Balance 87 1140 Weight (lbs) 53.07 kg 53.615 kg Intake: Intake, IV Amount 250 1200 Dextrose 5% 1,000 ml @ 1000 100 mls/hr IV .Q10H [facility] Rx#:[id number] Piperacillin Sodium/ 50 100 Tazobact 2.25 gm In Dextrose 5% 50 ml @ 100 mls/hr IV Q8H [facility] Rx#: [id number] metroNIDAZOLE 500mg/NS 200 100 100mL 500 mg In Premix Fluid 1 bag @ 100 mls/hr IV Q8H [facility] Rx#:[id number] Tube Feeding 240 240 Other 100 100 Output: Urine 500 400 Stool 3 0 Active Medications: Current Medications Acetaminophen (Tylenol) 650 mg PO Q6H PRN PRN Reason: Mild Pain or Fever >101 Stop: 01/31/17 11:18 Albuterol/Ipratropium (Duoneb Neb) 3 ml HHN Q6HRT [facility] Stop: 02/04/17 12:59 Last Admin: 12/07/16 06:43 Dose: 3 ml Albuterol/Ipratropium (Duoneb Neb) 3 ml HHN Q2HRT PRN PRN Reason: Wheezing Stop: 02/04/17 10:02 Last Admin: 12/06/16 10:23 Dose: 3 ml Bisacodyl (Dulcolax 5 Mg Ec Tab) 10 mg PO BID [facility] Stop: 01/31/17 16:59 Last Admin: 12/07/16 08:50 Dose: 10 mg Chlorhexidine Gluconate (Peridex) 15 ml MM 08,1999 [facility] Stop: 02/03/17 19:59 Last Admin: 12/07/16 08:43 Dose: 15 ml Epoetin Esequiel (Epogen) 10,000 units SUBQ TuThSa [facility] Stop: 02/01/17 14:29 Last Admin: 12/06/16 17:01 Dose: 10,000 units Hydromorphone HCl (Dilaudid) 1 mg IVP Q6HR PRN PRN Reason: Pain (Moderate-Severe) Stop: 02/04/17 08:11 Last Admin: 12/07/16 01:35 Dose: 1 mg Piperacillin Sod/Tazobactam (Sod 2.25 gm/ Dextrose) 50 mls @ 100 mls/hr IV Q8H [facility] Stop: 02/03/17 10:59 Last Infusion: 12/07/16 03:35 Dose: Infused Metronidazole 500 mg/ (Miscellaneous) 100 mls @ 100 mls/hr IV Q8H [facility] Stop: 02/03/17 09:59 Last Infusion: 12/07/16 02:40 Dose: Infused Dextrose (D5w) 1,000 mls @ 100 mls/hr IV .Q10H [facility] Stop: 02/04/17 09:29 Last Admin: 12/06/16 23:29 Dose: 100 mls/hr Insulin Aspart (Novolog Insulin Sliding Scale) 0 units SUBQ ACHS [facility] PRN Reason: Protocol Stop: 01/31/17 07:29 Last Admin: 12/07/16 06:32 Dose: 3 units Insulin Detemir (Levemir Insulin) 10 units SUBQ HS [facility] PRN Reason: Protocol Stop: 02/03/17 20:59 Last Admin: 12/06/16 21:02 Dose: 10 unit Lorazepam (Ativan) 1 mg IVP Q8HR PRN; Protocol PRN Reason: AGITATION Stop: 02/04/17 19:42 Last Admin: 12/06/16 21:16 Dose: 1 mg Miscellaneous (Vte Chemical Prophylaxis Screen/ Admission) 1 ea PRN PRN PRN Reason: PROTOCOL Stop: 01/31/17 13:38 Miscellaneous (Clinical Monitoring) 1 [facility] DAILY PRN PRN Reason: RENAL Stop: 02/04/17 08:05 Pantoprazole Sodium (Protonix) 40 mg IVP DAILY [facility] Stop: 02/01/17 08:59 Last Admin: 12/07/16 08:47 Dose: 40 mg Potassium Chloride (Potassium Chloride Elixir) 20 meq GT DAILY B[facility]EL[facility] Stop: 02/05/17 09:14 Sodium Bicarbonate (Sodium Bicarbonate) 650 mg PO BID BRIELLE PRN Reason: Protocol Stop: 01/31/17 16:59 Last Admin: 12/07/16 08:47 Dose: 650 mg General: No acute distress, Other (Patient is awake, restless trying to take off tubes.) HEENT: Atraumatic, Mucous membr. moist/pink, Other (Patient is intubated) Neck: Supple, +2 carotid pulse wo bruit Cardiovascular: Regular rate, Normal S1, Normal S2 Lungs: Clear to auscultation, Other (few rhonchi) Abdomen: Bowel sounds, Soft, Other (PEG in place, Colostomy in place) Extremities: Other (No edema), no Edema Neurological: Sensation intact, Other (Non ambulatory) Skin: Other (Decubit sacral ulcer stage IV), no Significant lesion Psych/Mental Status: Mood NL, Other (Awake, alert, restless, intubated) - Procedures Procedures: Procedures Procedure Code Date BYPASS DESCENDING COLON TO CUTANEOUS, OPEN APPROACH [id number] 12/02/16 COLOSTOMY 29897 12/02/16 CHAGO BONE 20 SQ CM/< 32543 12/02/16 CHAGO MUSC/FASCIA 20 SQ CM/< 02444 10/24/16 CHAGO SUBQ TISSUE 20 SQ CM/< 07012 12/02/16 EXCISION OF L FOOT SUBCU/FASCIA, OPEN APPROACH [id number] 12/02/16 EXCISION OF LEFT HIP MUSCLE, OPEN APPROACH [id number] 10/24/16 EXCISION OF LEFT PELVIC BONE, OPEN APPROACH [id number] 12/02/16 EXCISION OF R FOOT SUBCU/FASCIA, OPEN APPROACH [id number] 12/02/16 Assessment/Plan - Problem List Patient Problems: All Active Problems POOR ORAL INTAKE AND SWALLOWING (Acute) SACRAL AND BILATERAL BUTTOCK SKIN ULCERS (Acute) Nutritional Asmnt/Malnutr-PDOC - Dietary Evaluation Malnutrition Findings (Please click <Entered> for more info): Nutritional Asmnt/Malnutrition Start: 12/02/16 14: 44 Text: Status: Complete Freq: Document 12/02/16 14:44 GSUN (Rec: 12/02/16 15:19 GSUN [id number]) Nutritional Asmnt/Malnutrition Patient General Information Nutritional Screening Consult Diagnosis AKF, sacral decubitus ulcer stage IV, HTN, DM, dementia, chronic anemia Pertinent Medical Hx/Surgical Hx CAD, CVA, dementia, psychosis, muscle atrophy, AKF, DM, decubitus ulcer stage IV Subjective Information 81 year old female from SNF. RD consult for low Elliot and elevated blood glucose. Pt was awake, unable to provide nutrition hx. Family at bedside, spoke to family and HAI Pimentel regarding nutrition plan of care, PEG placement consent obtained. Family has no other questions at this time. 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 Per nursing adm notes , 4-5lb wt loss in 2 weeks. Per family, unaware of UBW, aware of recent wt loss, stated pt stopped eating ~3-4 days ago. Loose skin, moderate to severe muslce fat wasting to chest and clavicles. Current Diet Order/ Nutrition Support NPO Pertinent Medications Dulcolax, D5-0.45ns, Novolog Pertinent Labs 12/01: A1c 9H 12/02: sodium 173H, potassium 5.3H, BUN 169H, creatinie 5.8H , glucose 238H, calcium 10.8H Nutritional Hx/Data Height 1.52 m Height (Calculated Centimeters) 152.4 Current Weight (lbs) 43.545 kg Weight (Calculated Kilograms) 43.5 Weight (Calculated Grams) 99066.9 [place] Body Weight 100 Recent Weight Change Yes Weight Status Approriate GI Symptoms Usual diet at home [facility]: pureed, [facility] Skin Integrity/Comment: Elliot 11. Sacral decubitus ulcer stage IV. Estimated Nutritional Goals Calories/Kcals/Kg IBW 100lb/45.5kg Kcals Calculated 1365-1593kcal (30-35kcal/kg) Protein Calculated 68-73g (1.4-1.6g/kg, ulcer vs renal, ?HD) Fluid: ml Per MD Nutritional Problem 3. Problem Problem Altered nutrition related laboratory values related to Etiology DM aeb Signs/Symptoms: A1c 9H, glucose 238H 2. Problem Problem Increased kcal and prot needs related to Etiology skin integrity, recent weight loss aeb Signs/Symptoms: Sacral decubitus ulcer stage IV, wt loss 4-5lb in 2 weeks per nursing adm notes, moderate to seevre muslce/fat wasting to chest and clavicles 1. Problem Problem Impaired nutrient utilization related to Etiology acute kidney injury aeb Signs/Symptoms: potassium 5.3H, BUN 169H, creatinie 5.8H, calcium 10.8H Intervention/Recommendation Comments 1. Discussed enteral nutrition with family. Family has no further questions at this time . 2. When medically feasible to initiate feeding, recommend Novasource Renal at 30ml/hr x 24hrs, providing 720ml total volume, 1440kcal, 65g protein. Initiate at 10ml/hr for first 24 hrs, monitor for refeeding syndrome and tolerance, increase by 5ml/hr q12hrs until goal. 3. Recommend 1 packet Arginaid daily via tube for wound healing. 4. Monitor weight closely. Hx 4-5lb wt loss in 2 weeks per nursing adm note. Expected Outcomes/Goals Expected Outcomes/Goals 1. Pt to meet at least 75% of estimated nutritinoal eneds on tube feeding with tolerance.
[2016-12-07] MEDS: Potassium Chloride Elixir 20 mEq /15 mL UDC GT SCH (10:01)
[2016-12-07] MEDS ORDERED: Sodium Bicarbonate 8.4% 50mEq PFS IVP ONE (10:08)
[2016-12-07] MEDS: Dextrose 5% 1,000 ML IV SCH (13:56)
--- NOTE | 2016-12-07 14:06 | General Progress Note ---
Subjective - Review of Systems Service Date: 12/07/16 Subjective: opens eyes, comfortable, on vent Objective - Results Result Diagrams: 12/07/16 04:25 12/07/16 04:25 Recent Labs: Laboratory Last Values WBC 9.1 Th/cmm (4.8-10.8) 12/07/16 04:25 Corrected WBC (auto) 8.8 Th/cmm (4.8-10.8) 12/01/16 18:25 RBC 3.13 Mil/cmm (3.80-5.20) L 12/07/16 04:25 Hgb 9.0 gm/dL (12-16) L 12/07/16 04:25 Hct 27.4 % (41.0-60) L 12/07/16 04:25 MCV 87.4 fl (81-100) 12/07/16 04:25 MCH 28.7 pg (27.0-31.0) 12/07/16 04:25 MCHC Differential 32.9 pg (28.0-36.0) 12/07/16 04:25 RDW 19.3 % (11.5-20.0) 12/07/16 04:25 Plt Count 77 Th/cmm (150-400) L 12/07/16 04:25 MPV 14.2 fl 12/07/16 04:25 Neutrophils % 83.1 % (40.0-80.0) H 12/07/16 04:25 Band Neutrophils % 8 % (0-10) 12/04/16 04:50 Lymphocytes % 10.5 % (20.0-50.0) L 12/07/16 04:25 Monocytes % 4.7 % (2.0-10.0) 12/07/16 04:25 Eosinophils % 1.7 % (0.0-5.0) 12/07/16 04:25 Basophils % 0.0 % (0.0-2.0) 12/07/16 04:25 Neutrophils (Manual) 77 % (40-80) 12/04/16 04:50 Lymphocytes 10 % (20-50) L 12/04/16 04:50 Monocytes 5 % (2-10) 12/04/16 04:50 Eosinophils 3 % (0-5) 12/03/16 05:35 Nucleated RBCs 5.0 % (0-0) H 12/01/16 18:25 Atypical Lymphocytes 1 % 12/01/16 18:25 Platelet Estimate SLIGHT DECREASED (NORMAL) 12/04/16 04:50 Platelet Morphology NORMAL (NORMAL) 12/01/16 18:25 Anisocytosis 2+ 12/03/16 05:35 RBC Morph Micro Appear ABNORMAL (NORMAL) 12/01/16 18:25 Eos Smear Source URINE 12/03/16 06:30 Eos Smear Total Cells NONE SEEN (NONE SEEN) 12/03/16 06:30 PT 11.2 SECONDS (9.5-11.5) 12/03/16 05:35 INR 1.08 (0.5-1.4) 12/03/16 05:35 PTT (Actin FS) 19.6 SECONDS (26.0-38.0) L 12/01/16 18:25 Specimen Source Arterial 12/07/16 09:35 Sample Site LB 12/07/16 09:35 pH 7.38 (7.35-7.45) 12/07/16 09:35 pCO2 23.0 mmHg (35.0-45.0) L* 12/07/16 09:35 pO2 130.0 mmHg (80.0-100.0) H 12/07/16 09:35 HCO3 17.4 mEq/L (20.0-26.0) L 12/07/16 09:35 Base Excess -9.7 mEq/L (-3.0-3.0) L 12/07/16 09:35 O2 Saturation 99.0 % (92.0-100.0) 12/07/16 09:35 Isidro Test NA 12/07/16 09:35 Vent Rate 6 12/07/16 09:35 Inspired O2 30 12/07/16 09:35 Tidal Volume 450 12/07/16 09:35 PEEP 5 12/07/16 09:35 Pressure (ins/psv/peep) 10 12/07/16 09:35 Critical Value E.ZUNIGA 12/07/16 09:35 Sodium 149 mEq/L (136-145) H 12/07/16 04:25 Potassium 3.3 mEq/L (3.5-5.1) L 12/07/16 04:25 Chloride 123 mEq/L (98-107) H 12/07/16 04:25 Carbon Dioxide 15.8 mEq/L (21.0-31.0) L 12/07/16 04:25 Anion Gap 13.5 (7.0-16.0) 12/07/16 04:25 BUN 75 mg/dL (7-25) H 12/07/16 04:25 Creatinine 2.9 mg/dL (0.6-1.2) H 12/07/16 04:25 Est GFR ( Amer) TNP 12/07/16 04:25 Est GFR (Non-Af Amer) TNP 12/07/16 04:25 BUN/Creatinine Ratio 25.9 12/07/16 04:25 Glucose 195 mg/dL (70-105) H 12/07/16 04:25 POC Glucose 190 MG/DL (70 - 105) H 12/07/16 11:56 Hemoglobin A1c % 9.0 % (4.0-6.0) H 12/01/16 18:25 Whole Bld Lactic Acid 2.84 mmol/L (0.60-1.99) H* 12/05/16 12:05 Uric Acid 11.6 mg/dL (2.3-6.6) H 12/03/16 05:35 Calcium 8.5 mg/dL (8.6-10.3) L 12/07/16 04:25 Magnesium 2.7 mg/dL (1.9-2.7) 12/03/16 05:35 Total Bilirubin 0.5 mg/dL (0.3-1.0) 12/05/16 10:05 AST 8 U/L (13-39) L 12/05/16 10:05 ALT 3 U/L (7-52) L 12/05/16 10:05 Alkaline Phosphatase 83 U/L (34-104) 12/05/16 10:05 Total Protein 5.2 gm/dL (6.0-8.3) L 12/05/16 10:05 Albumin 2.4 gm/dL (3.7-5.3) L 12/05/16 10:05 Globulin 2.8 gm/dL 12/05/16 10:05 Albumin/Globulin Ratio 0.9 (1.0-1.8) L 12/05/16 10:05 TSH 2.49 uIU/ml (0.34-5.60) 12/03/16 05:35 Urine Source SOTO PORT 12/02/16 14:56 Urine Color YELLOW 12/02/16 14:56 Urine Clarity HAZY (CLEAR) 12/02/16 14:56 Urine pH 8.0 (4.6 - 8.0) 12/02/16 14:56 Ur Specific [place] 1.015 (1.005-1.030) 12/02/16 14:56 Urine Protein 100 mg/dL (NEGATIVE) H 12/02/16 14:56 Urine Glucose (UA) 500 mg/dL (NEGATIVE) H 12/02/16 14:56 Urine Ketones NEGATIVE mg/dL (NEGATIVE) 12/02/16 14:56 Urine Blood MODERATE (NEGATIVE) H 12/02/16 14:56 Urine Nitrate POSITIVE (NEGATIVE) H 12/02/16 14:56 Urine Bilirubin NEGATIVE (NEGATIVE) 12/02/16 14:56 Urine Urobilinogen 0.2 E.U./dL (0.2 - 1.0) 12/02/16 14:56 Ur Leukocyte Esterase MODERATE (NEGATIVE) H 12/02/16 14:56 Urine RBC 5-10 /hpf (0-5) H 12/02/16 14:56 Urine WBC 50-100 /hpf (0-5) H 12/02/16 14:56 Ur Epithelial Cells FEW /lpf (FEW) 12/02/16 14:56 Triple Phos Crystals MODERATE /hpf (FEW) 12/02/16 14:56 Urine Bacteria MANY /hpf (NONE SEEN) 12/02/16 14:56 Urine Osmolality 488 mOsmol/kg 12/03/16 06:30 Ur Random Sodium 75 mmol/L 12/03/16 06:30 Urine Creatinine 49.0 mg/dl (28.0-217.0) 12/03/16 06:30 Blood Type O POSITIVE 12/02/16 05:05 Antibody Screen NEGATIVE 12/02/16 05:05 Crossmatch See Detail 12/02/16 05:05 - Physical Exam Vitals and I&O: Vital Signs Temp 98.2 F 12/07/16 12:00 Pulse 106 12/07/16 13:17 Resp 20 12/07/16 13:00 BP 120/64 12/07/16 13:00 Pulse Ox 99 12/07/16 13:17 Intake & Output 12/06/16 12/07/16 12/07/16 18:59 06:59 18:59 Intake Total 590 1540 150 Output Total 503 400 Balance 87 1140 150 Weight (lbs) 53.07 kg 53.615 kg Intake: Intake, IV Amount 250 1200 150 Dextrose 5% 1,000 ml @ 1000 100 mls/hr IV .Q10H [facility] Rx#:[id number] Piperacillin Sodium/ 50 100 50 Tazobact 2.25 gm In Dextrose 5% 50 ml @ 100 mls/hr IV Q8H [facility] Rx#: [id number] metroNIDAZOLE 500mg/NS 200 100 100 100mL 500 mg In Premix Fluid 1 bag @ 100 mls/hr IV Q8H [facility] Rx#:[id number] Tube Feeding 240 240 Other 100 100 Output: Urine 500 400 Stool 3 0 Active Medications: Current Medications Acetaminophen (Tylenol) 650 mg PO Q6H PRN PRN Reason: Mild Pain or Fever >101 Stop: 01/31/17 11:18 Albuterol/Ipratropium (Duoneb Neb) 3 ml HHN Q6HRT [facility] Stop: 02/04/17 12:59 Last Admin: 12/07/16 13:16 Dose: 3 ml Albuterol/Ipratropium (Duoneb Neb) 3 ml HHN Q2HRT PRN PRN Reason: Wheezing Stop: 02/04/17 10:02 Last Admin: 12/06/16 10:23 Dose: 3 ml Bisacodyl (Dulcolax 5 Mg Ec Tab) 10 mg PO BID [facility] Stop: 01/31/17 16:59 Last Admin: 12/07/16 08:50 Dose: 10 mg Chlorhexidine Gluconate (Peridex) 15 ml MM 0800,1999 [facility] Stop: 02/03/17 19:59 Last Admin: 12/07/16 08:43 Dose: 15 ml Epoetin Esequiel (Epogen) 10,000 units SUBQ TuThSa [facility] Stop: 02/01/17 14:29 Last Admin: 12/06/16 17:01 Dose: 10,000 units Hydromorphone HCl (Dilaudid) 1 mg IVP Q6HR PRN PRN Reason: Pain (Moderate-Severe) Stop: 02/04/17 08:11 Last Admin: 12/07/16 01:35 Dose: 1 mg Piperacillin Sod/Tazobactam (Sod 2.25 gm/ Dextrose) 50 mls @ 100 mls/hr IV Q8H [facility] Stop: 02/03/17 10:59 Last Infusion: 12/07/16 11:32 Dose: Infused Metronidazole 500 mg/ (Miscellaneous) 100 mls @ 100 mls/hr IV Q8H [facility] Stop: 02/03/17 09:59 Last Infusion: 12/07/16 10:59 Dose: Infused Dextrose (D5w) 1,000 mls @ 50 mls/hr IV .Q20H [facility] Stop: 02/05/17 11:25 Insulin Aspart (Novolog Insulin Sliding Scale) 0 units SUBQ ACHS [facility] PRN Reason: Protocol Stop: 01/31/17 07:29 Last Admin: 12/07/16 12:10 Dose: 3 units Insulin Detemir (Levemir Insulin) 10 units SUBQ HS [facility] PRN Reason: Protocol Stop: 02/03/17 20:59 Last Admin: 12/06/16 21:02 Dose: 10 unit Lorazepam (Ativan) 1 mg IVP Q8HR PRN; Protocol PRN Reason: AGITATION Stop: 02/04/17 19:42 Last Admin: 12/06/16 21:16 Dose: 1 mg Miscellaneous (Vte Chemical Prophylaxis Screen/ Admission) 1 ea PRN PRN PRN Reason: PROTOCOL Stop: 01/31/17 13:38 Miscellaneous (Clinical Monitoring) 1 ea DAILY PRN PRN Reason: RENAL Stop: 02/04/17 08:05 Pantoprazole Sodium (Protonix) 40 mg IVP DAILY [facility] Stop: 02/01/17 08:59 Last Admin: 12/07/16 08:47 Dose: 40 mg Potassium Chloride (Potassium Chloride Elixir) 20 meq GT DAILY [facility] Stop: 02/05/17 09:14 Last Admin: 12/07/16 10:01 Dose: 20 meq Sodium Bicarbonate (Sodium Bicarbonate) 650 mg GT TID [facility] PRN Reason: Protocol Stop: 02/05/17 20:59 General: No acute distress, Other (Patient is awake, restless trying to take off tubes.) HEENT: Atraumatic, Mucous membr. moist/pink, Other (Patient is intubated) Neck: Supple, +2 carotid pulse wo bruit Cardiovascular: Regular rate, Normal S1, Normal S2 Lungs: Clear to auscultation, Other (few rhonchi) Abdomen: Bowel sounds, Soft, Other (PEG in place, Colostomy in place) Extremities: Other (No edema), no Edema Neurological: Sensation intact, Other (Non ambulatory) Skin: Other (Decubit sacral ulcer stage IV), no Significant lesion Psych/Mental Status: Mood NL, Other (Awake, alert, restless, intubated) - Procedures Procedures: Procedures Procedure Code Date BYPASS DESCENDING COLON TO CUTANEOUS, OPEN APPROACH [id number] 12/02/16 COLOSTOMY 29753 12/02/16 CHAGO BONE 20 SQ CM/< [id number] 12/02/16 CHAGO MUSC/FASCIA 20 SQ CM/< 08412 10/24/16 CHAGO SUBQ TISSUE 20 SQ CM/< 62665 12/02/16 EXCISION OF L FOOT SUBCU/FASCIA, OPEN APPROACH [id number] 12/02/16 EXCISION OF LEFT HIP MUSCLE, OPEN APPROACH [id number] 10/24/16 EXCISION OF LEFT PELVIC BONE, OPEN APPROACH [id number] 12/02/16 EXCISION OF R FOOT SUBCU/FASCIA, OPEN APPROACH [id number] 12/02/16 RESPIRATORY VENTILATION, 24-96 CONSECUTIVE HOURS [id number] 12/02/16 Assessment/Plan - Problem List Patient Problems: All Active Problems POOR ORAL INTAKE AND SWALLOWING (Acute) SACRAL AND BILATERAL BUTTOCK SKIN ULCERS (Acute) - Assessment Assessment: Bryan on CKD dehydration FTT 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 Anemia CKD Left hip ulcer s/p debridement w/ Vac B/L heel ulcers s/p debridement s/p Diverting colostomy - Plan Plan: Lab - Result Diagrams 12/03/16 05:35 12/03/16 05:35 Current Medications Acetaminophen (Tylenol) 650 mg PO Q6H PRN PRN Reason: Pain or Fever >101 Stop: 01/31/17 11:18 Bisacodyl (Dulcolax 5 Mg Ec Tab) 10 mg PO BID [facility] Stop: 01/31/17 16:59 Last Admin: 12/03/16 11:07 Dose: 10 mg Dextrose (D5w) 1,000 mls @ 125 mls/hr IV .Q8H [facility] Stop: 02/01/17 14:14 Insulin Aspart (Novolog Insulin Sliding Scale) 0 units SUBQ ACHS [facility] PRN Reason: Protocol Stop: 01/31/17 07:29 Last Admin: 12/03/16 12:32 Dose: 9 units Miscellaneous (Vte Chemical Prophylaxis Screen/ Admission) 1 ea MC PRN PRN PRN Reason: PROTOCOL Stop: 01/31/17 13:38 Pantoprazole Sodium (Protonix) 40 mg IVP DAILY [facility] Stop: 02/01/17 08:59 Last Admin: 12/03/16 11:07 Dose: 40 mg Sodium Bicarbonate (Sodium Bicarbonate) 650 mg PO BID [facility] PRN Reason: Protocol Stop: 01/31/17 16:59 Last Admin: 12/03/16 11:07 Dose: 650 mg Lab - Result Diagrams 12/07/16 04:25 12/07/16 04:25 kidney fnc gradually improving back to D5W 100ml/hr w/ increase in Na Had placement of PEG start feeding today w/ glucerna @ 20ml/hr start epo Hgb down to 7.9 up to 10.2 after transfusion continue IVF, start basal insulin BS under better control Agree w/ K replacement, increase NaHC03 Nutritional Asmnt/Malnutr-PDOC - Dietary Evaluation Malnutrition Findings (Please click <Entered> for more info): Nutritional Asmnt/Malnutrition Start: 12/02/16 14: 44 Text: Status: Complete Freq: Document 12/02/16 14:44 GSUN (Rec: 12/02/16 15:19 GSUN [id number]) Nutritional Asmnt/Malnutrition Patient General Information Nutritional Screening Consult Diagnosis AKF, sacral decubitus ulcer stage IV, HTN, DM, dementia, chronic anemia Pertinent Medical Hx/Surgical Hx CAD, CVA, dementia, psychosis, muscle atrophy, AKF, DM, decubitus ulcer stage IV Subjective Information 81 year old female from SNF. RD consult for low Elliot and elevated blood glucose. Pt was awake, unable to provide nutrition hx. Family at bedside, spoke to family and HAI Pimentel regarding nutrition plan of care, PEG placement consent obtained. Family has no other questions at this time. 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 Per nursing adm notes , 4-5lb wt loss in 2 weeks. Per family, unaware of UBW, aware of recent wt loss, stated pt stopped eating ~3-4 days ago. Loose skin, moderate to severe muslce fat wasting to chest and clavicles. Current Diet Order/ Nutrition Support NPO Pertinent Medications Dulcolax, D5-0.45ns, Novolog Pertinent Labs 12/01: A1c 9H 12/02: sodium 173H, potassium 5.3H, BUN 169H, creatinie 5.8H , glucose 238H, calcium 10.8H Nutritional Hx/Data Height 1.52 m Height (Calculated Centimeters) 152.4 Current Weight (lbs) 43.545 kg Weight (Calculated Kilograms) 43.5 Weight (Calculated Grams) 20588.9 [place] Body Weight 100 Recent Weight Change Yes Weight Status Approriate GI Symptoms Usual diet at home [facility]: pureed[facility] Skin Integrity/Comment: Elliot 11. Sacral decubitus ulcer stage IV. Estimated Nutritional Goals Calories/Kcals/Kg IBW 100lb/45.5kg Kcals Calculated 1365-1593kcal (30-35kcal/kg) Protein Calculated 68-73g (1.4-1.6g/kg, ulcer vs renal, ?HD) Fluid: ml Per MD Nutritional Problem 3. Problem Problem Altered nutrition related laboratory values related to Etiology DM aeb Signs/Symptoms: A1c 9H, glucose 238H 2. Problem Problem Increased kcal and prot needs related to Etiology skin integrity, recent weight loss aeb Signs/Symptoms: Sacral decubitus ulcer stage IV, wt loss 4-5lb in 2 weeks per nursing adm notes, moderate to seevre muslce/fat wasting to chest and clavicles 1. Problem Problem Impaired nutrient utilization related to Etiology acute kidney injury aeb Signs/Symptoms: potassium 5.3H, BUN 169H, creatinie 5.8H, calcium 10.8H Intervention/Recommendation Comments 1. Discussed enteral nutrition with family. Family has no further questions at this time . 2. When medically feasible to initiate feeding, recommend Novasource Renal at 30ml/hr x 24hrs, providing 720ml total volume, 1440kcal, 65g protein. Initiate at 10ml/hr for first 24 hrs, monitor for refeeding syndrome and tolerance, increase by 5ml/hr q12hrs until goal. 3. Recommend 1 packet Arginaid daily via tube for wound healing. 4. Monitor weight closely. Hx 4-5lb wt loss in 2 weeks per nursing adm note. Expected Outcomes/Goals Expected Outcomes/Goals 1. Pt to meet at least 75% of estimated nutritinoal eneds on tube feeding with tolerance.
--- NOTE | 2016-12-07 14:06 | General Progress Note ---
Subjective - Review of Systems Service Date: 12/07/16 Subjective: opens eyes, comfortable, on vent Objective - Results Result Diagrams: 12/07/16 04:25 12/07/16 04:25 Recent Labs: Laboratory Last Values WBC 9.1 Th/cmm (4.8-10.8) 12/07/16 04:25 Corrected WBC (auto) 8.8 Th/cmm (4.8-10.8) 12/01/16 18:25 RBC 3.13 Mil/cmm (3.80-5.20) L 12/07/16 04:25 Hgb 9.0 gm/dL (12-16) L 12/07/16 04:25 Hct 27.4 % (41.0-60) L 12/07/16 04:25 MCV 87.4 fl (81-100) 12/07/16 04:25 MCH 28.7 pg (27.0-31.0) 12/07/16 04:25 MCHC Differential 32.9 pg (28.0-36.0) 12/07/16 04:25 RDW 19.3 % (11.5-20.0) 12/07/16 04:25 Plt Count 77 Th/cmm (150-400) L 12/07/16 04:25 MPV 14.2 fl 12/07/16 04:25 Neutrophils % 83.1 % (40.0-80.0) H 12/07/16 04:25 Band Neutrophils % 8 % (0-10) 12/04/16 04:50 Lymphocytes % 10.5 % (20.0-50.0) L 12/07/16 04:25 Monocytes % 4.7 % (2.0-10.0) 12/07/16 04:25 Eosinophils % 1.7 % (0.0-5.0) 12/07/16 04:25 Basophils % 0.0 % (0.0-2.0) 12/07/16 04:25 Neutrophils (Manual) 77 % (40-80) 12/04/16 04:50 Lymphocytes 10 % (20-50) L 12/04/16 04:50 Monocytes 5 % (2-10) 12/04/16 04:50 Eosinophils 3 % (0-5) 12/03/16 05:35 Nucleated RBCs 5.0 % (0-0) H 12/01/16 18:25 Atypical Lymphocytes 1 % 12/01/16 18:25 Platelet Estimate SLIGHT DECREASED (NORMAL) 12/04/16 04:50 Platelet Morphology NORMAL (NORMAL) 12/01/16 18:25 Anisocytosis 2+ 12/03/16 05:35 RBC Morph Micro Appear ABNORMAL (NORMAL) 12/01/16 18:25 Eos Smear Source URINE 12/03/16 06:30 Eos Smear Total Cells NONE SEEN (NONE SEEN) 12/03/16 06:30 PT 11.2 SECONDS (9.5-11.5) 12/03/16 05:35 INR 1.08 (0.5-1.4) 12/03/16 05:35 PTT (Actin FS) 19.6 SECONDS (26.0-38.0) L 12/01/16 18:25 Specimen Source Arterial 12/07/16 09:35 Sample Site LB 12/07/16 09:35 pH 7.38 (7.35-7.45) 12/07/16 09:35 pCO2 23.0 mmHg (35.0-45.0) L* 12/07/16 09:35 pO2 130.0 mmHg (80.0-100.0) H 12/07/16 09:35 HCO3 17.4 mEq/L (20.0-26.0) L 12/07/16 09:35 Base Excess -9.7 mEq/L (-3.0-3.0) L 12/07/16 09:35 O2 Saturation 99.0 % (92.0-100.0) 12/07/16 09:35 Isidro Test NA 12/07/16 09:35 Vent Rate 6 12/07/16 09:35 Inspired O2 30 12/07/16 09:35 Tidal Volume 450 12/07/16 09:35 PEEP 5 12/07/16 09:35 Pressure (ins/psv/peep) 10 12/07/16 09:35 Critical Value E.ZUNIGA 12/07/16 09:35 Sodium 149 mEq/L (136-145) H 12/07/16 04:25 Potassium 3.3 mEq/L (3.5-5.1) L 12/07/16 04:25 Chloride 123 mEq/L (98-107) H 12/07/16 04:25 Carbon Dioxide 15.8 mEq/L (21.0-31.0) L 12/07/16 04:25 Anion Gap 13.5 (7.0-16.0) 12/07/16 04:25 BUN 75 mg/dL (7-25) H 12/07/16 04:25 Creatinine 2.9 mg/dL (0.6-1.2) H 12/07/16 04:25 Est GFR ( Amer) TNP 12/07/16 04:25 Est GFR (Non-Af Amer) TNP 12/07/16 04:25 BUN/Creatinine Ratio 25.9 12/07/16 04:25 Glucose 195 mg/dL (70-105) H 12/07/16 04:25 POC Glucose 190 MG/DL (70 - 105) H 12/07/16 11:56 Hemoglobin A1c % 9.0 % (4.0-6.0) H 12/01/16 18:25 Whole Bld Lactic Acid 2.84 mmol/L (0.60-1.99) H* 12/05/16 12:05 Uric Acid 11.6 mg/dL (2.3-6.6) H 12/03/16 05:35 Calcium 8.5 mg/dL (8.6-10.3) L 12/07/16 04:25 Magnesium 2.7 mg/dL (1.9-2.7) 12/03/16 05:35 Total Bilirubin 0.5 mg/dL (0.3-1.0) 12/05/16 10:05 AST 8 U/L (13-39) L 12/05/16 10:05 ALT 3 U/L (7-52) L 12/05/16 10:05 Alkaline Phosphatase 83 U/L (34-104) 12/05/16 10:05 Total Protein 5.2 gm/dL (6.0-8.3) L 12/05/16 10:05 Albumin 2.4 gm/dL (3.7-5.3) L 12/05/16 10:05 Globulin 2.8 gm/dL 12/05/16 10:05 Albumin/Globulin Ratio 0.9 (1.0-1.8) L 12/05/16 10:05 TSH 2.49 uIU/ml (0.34-5.60) 12/03/16 05:35 Urine Source SOTO PORT 12/02/16 14:56 Urine Color YELLOW 12/02/16 14:56 Urine Clarity HAZY (CLEAR) 12/02/16 14:56 Urine pH 8.0 (4.6 - 8.0) 12/02/16 14:56 Ur Specific [place] 1.015 (1.005-1.030) 12/02/16 14:56 Urine Protein 100 mg/dL (NEGATIVE) H 12/02/16 14:56 Urine Glucose (UA) 500 mg/dL (NEGATIVE) H 12/02/16 14:56 Urine Ketones NEGATIVE mg/dL (NEGATIVE) 12/02/16 14:56 Urine Blood MODERATE (NEGATIVE) H 12/02/16 14:56 Urine Nitrate POSITIVE (NEGATIVE) H 12/02/16 14:56 Urine Bilirubin NEGATIVE (NEGATIVE) 12/02/16 14:56 Urine Urobilinogen 0.2 E.U./dL (0.2 - 1.0) 12/02/16 14:56 Ur Leukocyte Esterase MODERATE (NEGATIVE) H 12/02/16 14:56 Urine RBC 5-10 /hpf (0-5) H 12/02/16 14:56 Urine WBC 50-100 /hpf (0-5) H 12/02/16 14:56 Ur Epithelial Cells FEW /lpf (FEW) 12/02/16 14:56 Triple Phos Crystals MODERATE /hpf (FEW) 12/02/16 14:56 Urine Bacteria MANY /hpf (NONE SEEN) 12/02/16 14:56 Urine Osmolality 488 mOsmol/kg 12/03/16 06:30 Ur Random Sodium 75 mmol/L 12/03/16 06:30 Urine Creatinine 49.0 mg/dl (28.0-217.0) 12/03/16 06:30 Blood Type O POSITIVE 12/02/16 05:05 Antibody Screen NEGATIVE 12/02/16 05:05 Crossmatch See Detail 12/02/16 05:05 - Physical Exam Vitals and I&O: Vital Signs Temp 98.2 F 12/07/16 12:00 Pulse 106 12/07/16 13:17 Resp 20 12/07/16 13:00 BP 120/64 12/07/16 13:00 Pulse Ox 99 12/07/16 13:17 Intake & Output 12/06/16 12/07/16 12/07/16 18:59 06:59 18:59 Intake Total 590 1540 150 Output Total 503 400 Balance 87 1140 150 Weight (lbs) 53.07 kg 53.615 kg Intake: Intake, IV Amount 250 1200 150 Dextrose 5% 1,000 ml @ 1000 100 mls/hr IV .Q10H [facility] Rx#:[id number] Piperacillin Sodium/ 50 100 50 Tazobact 2.25 gm In Dextrose 5% 50 ml @ 100 mls/hr IV Q8H [facility] Rx#: [id number] metroNIDAZOLE 500mg/NS 200 100 100 100mL 500 mg In Premix Fluid 1 bag @ 100 mls/hr IV Q8H [facility] Rx#:[id number] Tube Feeding 240 240 Other 100 100 Output: Urine 500 400 Stool 3 0 Active Medications: Current Medications Acetaminophen (Tylenol) 650 mg PO Q6H PRN PRN Reason: Mild Pain or Fever >101 Stop: 01/31/17 11:18 Albuterol/Ipratropium (Duoneb Neb) 3 ml HHN Q6HRT [facility] Stop: 02/04/17 12:59 Last Admin: 12/07/16 13:16 Dose: 3 ml Albuterol/Ipratropium (Duoneb Neb) 3 ml HHN Q2HRT PRN PRN Reason: Wheezing Stop: 02/04/17 10:02 Last Admin: 12/06/16 10:23 Dose: 3 ml Bisacodyl (Dulcolax 5 Mg Ec Tab) 10 mg PO BID [facility] Stop: 01/31/17 16:59 Last Admin: 12/07/16 08:50 Dose: 10 mg Chlorhexidine Gluconate (Peridex) 15 ml MM 0800,1999 [facility] Stop: 02/03/17 19:59 Last Admin: 12/07/16 08:43 Dose: 15 ml Epoetin Esequiel (Epogen) 10,000 units SUBQ TuThSa [facility] Stop: 02/01/17 14:29 Last Admin: 12/06/16 17:01 Dose: 10,000 units Hydromorphone HCl (Dilaudid) 1 mg IVP Q6HR PRN PRN Reason: Pain (Moderate-Severe) Stop: 02/04/17 08:11 Last Admin: 12/07/16 01:35 Dose: 1 mg Piperacillin Sod/Tazobactam (Sod 2.25 gm/ Dextrose) 50 mls @ 100 mls/hr IV Q8H [facility] Stop: 02/03/17 10:59 Last Infusion: 12/07/16 11:32 Dose: Infused Metronidazole 500 mg/ (Miscellaneous) 100 mls @ 100 mls/hr IV Q8H [facility] Stop: 02/03/17 09:59 Last Infusion: 12/07/16 10:59 Dose: Infused Dextrose (D5w) 1,000 mls @ 50 mls/hr IV .Q20H [facility] Stop: 02/05/17 11:25 Insulin Aspart (Novolog Insulin Sliding Scale) 0 units SUBQ ACHS [facility] PRN Reason: Protocol Stop: 01/31/17 07:29 Last Admin: 12/07/16 12:10 Dose: 3 units Insulin Detemir (Levemir Insulin) 10 units SUBQ HS [facility] PRN Reason: Protocol Stop: 02/03/17 20:59 Last Admin: 12/06/16 21:02 Dose: 10 unit Lorazepam (Ativan) 1 mg IVP Q8HR PRN; Protocol PRN Reason: AGITATION Stop: 02/04/17 19:42 Last Admin: 12/06/16 21:16 Dose: 1 mg Miscellaneous (Vte Chemical Prophylaxis Screen/ Admission) 1 ea PRN PRN PRN Reason: PROTOCOL Stop: 01/31/17 13:38 Miscellaneous (Clinical Monitoring) 1 ea DAILY PRN PRN Reason: RENAL Stop: 02/04/17 08:05 Pantoprazole Sodium (Protonix) 40 mg IVP DAILY [facility] Stop: 02/01/17 08:59 Last Admin: 12/07/16 08:47 Dose: 40 mg Potassium Chloride (Potassium Chloride Elixir) 20 meq GT DAILY [facility] Stop: 02/05/17 09:14 Last Admin: 12/07/16 10:01 Dose: 20 meq Sodium Bicarbonate (Sodium Bicarbonate) 650 mg GT TID [facility] PRN Reason: Protocol Stop: 02/05/17 20:59 General: No acute distress, Other (Patient is awake, restless trying to take off tubes.) HEENT: Atraumatic, Mucous membr. moist/pink, Other (Patient is intubated) Neck: Supple, +2 carotid pulse wo bruit Cardiovascular: Regular rate, Normal S1, Normal S2 Lungs: Clear to auscultation, Other (few rhonchi) Abdomen: Bowel sounds, Soft, Other (PEG in place, Colostomy in place) Extremities: Other (No edema), no Edema Neurological: Sensation intact, Other (Non ambulatory) Skin: Other (Decubit sacral ulcer stage IV), no Significant lesion Psych/Mental Status: Mood NL, Other (Awake, alert, restless, intubated) - Procedures Procedures: Procedures Procedure Code Date BYPASS DESCENDING COLON TO CUTANEOUS, OPEN APPROACH [id number] 12/02/16 COLOSTOMY 53875 12/02/16 CHAGO BONE 20 SQ CM/< 34740 12/02/16 CHAGO MUSC/FASCIA 20 SQ CM/< 47516 10/24/16 CHAGO SUBQ TISSUE 20 SQ CM/< [id number] 12/02/16 EXCISION OF L FOOT SUBCU/FASCIA, OPEN APPROACH [id number] 12/02/16 EXCISION OF LEFT HIP MUSCLE, OPEN APPROACH [id number] 10/24/16 EXCISION OF LEFT PELVIC BONE, OPEN APPROACH [id number] 12/02/16 EXCISION OF R FOOT SUBCU/FASCIA, OPEN APPROACH [id number] 12/02/16 RESPIRATORY VENTILATION, 24-96 CONSECUTIVE HOURS [id number] 12/02/16 Assessment/Plan - Problem List Patient Problems: All Active Problems POOR ORAL INTAKE AND SWALLOWING (Acute) SACRAL AND BILATERAL BUTTOCK SKIN ULCERS (Acute) - Assessment Assessment: Bryan on CKD dehydration FTT 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 Anemia CKD Left hip ulcer s/p debridement w/ Vac B/L heel ulcers s/p debridement s/p Diverting colostomy - Plan Plan: Lab - Result Diagrams 12/03/16 05:35 12/03/16 05:35 Current Medications Acetaminophen (Tylenol) 650 mg PO Q6H PRN PRN Reason: Pain or Fever >101 Stop: 01/31/17 11:18 Bisacodyl (Dulcolax 5 Mg Ec Tab) 10 mg PO BID [facility] Stop: 01/31/17 16:59 Last Admin: 12/03/16 11:07 Dose: 10 mg Dextrose (D5w) 1,000 mls @ 125 mls/hr IV .Q8H [facility] Stop: 02/01/17 14:14 Insulin Aspart (Novolog Insulin Sliding Scale) 0 units SUBQ ACHS [facility] PRN Reason: Protocol Stop: 01/31/17 07:29 Last Admin: 12/03/16 12:32 Dose: 9 units Miscellaneous (Vte Chemical Prophylaxis Screen/ Admission) 1 ea MC PRN PRN PRN Reason: PROTOCOL Stop: 01/31/17 13:38 Pantoprazole Sodium (Protonix) 40 mg IVP DAILY [facility] Stop: 02/01/17 08:59 Last Admin: 12/03/16 11:07 Dose: 40 mg Sodium Bicarbonate (Sodium Bicarbonate) 650 mg PO BID [facility] PRN Reason: Protocol Stop: 01/31/17 16:59 Last Admin: 12/03/16 11:07 Dose: 650 mg Lab - Result Diagrams 12/07/16 04:25 12/07/16 04:25 kidney fnc gradually improving back to D5W 100ml/hr w/ increase in Na Had placement of PEG start feeding today w/ glucerna @ 20ml/hr start epo Hgb down to 7.9 up to 10.2 after transfusion continue IVF, start basal insulin BS under better control Agree w/ K replacement, increase NaHC03 Nutritional Asmnt/Malnutr-PDOC - Dietary Evaluation Malnutrition Findings (Please click <Entered> for more info): Nutritional Asmnt/Malnutrition Start: 12/02/16 14: 44 Text: Status: Complete Freq: Document 12/02/16 14:44 GSUN (Rec: 12/02/16 15:19 GSUN [id number]) Nutritional Asmnt/Malnutrition Patient General Information Nutritional Screening Consult Diagnosis AKF, sacral decubitus ulcer stage IV, HTN, DM, dementia, chronic anemia Pertinent Medical Hx/Surgical Hx CAD, CVA, dementia, psychosis, muscle atrophy, AKF, DM, decubitus ulcer stage IV Subjective Information 81 year old female from SNF. RD consult for low Elliot and elevated blood glucose. Pt was awake, unable to provide nutrition hx. Family at bedside, spoke to family and HAI Pimentel regarding nutrition plan of care, PEG placement consent obtained. Family has no other questions at this time. 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 Per nursing adm notes , 4-5lb wt loss in 2 weeks. Per family, unaware of UBW, aware of recent wt loss, stated pt stopped eating ~3-4 days ago. Loose skin, moderate to severe muslce fat wasting to chest and clavicles. Current Diet Order/ Nutrition Support NPO Pertinent Medications Dulcolax, D5-0.45ns, Novolog Pertinent Labs 12/01: A1c 9H 12/02: sodium 173H, potassium 5.3H, BUN 169H, creatinie 5.8H , glucose 238H, calcium 10.8H Nutritional Hx/Data Height 1.52 m Height (Calculated Centimeters) 152.4 Current Weight (lbs) 43.545 kg Weight (Calculated Kilograms) 43.5 Weight (Calculated Grams) 89037.9 [place] Body Weight 100 Recent Weight Change Yes Weight Status Approriate GI Symptoms Usual diet at home [facility]: pureed, [facility] , [facility] Skin Integrity/Comment: Elliot 11. Sacral decubitus ulcer stage IV. Estimated Nutritional Goals Calories/Kcals/Kg IBW 100lb/45.5kg Kcals Calculated 1365-1593kcal (30-35kcal/kg) Protein Calculated 68-73g (1.4-1.6g/kg, ulcer vs renal, ?HD) Fluid: ml Per MD Nutritional Problem 3. Problem Problem Altered nutrition related laboratory values related to Etiology DM aeb Signs/Symptoms: A1c 9H, glucose 238H 2. Problem Problem Increased kcal and prot needs related to Etiology skin integrity, recent weight loss aeb Signs/Symptoms: Sacral decubitus ulcer stage IV, wt loss 4-5lb in 2 weeks per nursing adm notes, moderate to seevre muslce/fat wasting to chest and clavicles 1. Problem Problem Impaired nutrient utilization related to Etiology acute kidney injury aeb Signs/Symptoms: potassium 5.3H, BUN 169H, creatinie 5.8H, calcium 10.8H Intervention/Recommendation Comments 1. Discussed enteral nutrition with family. Family has no further questions at this time . 2. When medically feasible to initiate feeding, recommend Novasource Renal at 30ml/hr x 24hrs, providing 720ml total volume, 1440kcal, 65g protein. Initiate at 10ml/hr for first 24 hrs, monitor for refeeding syndrome and tolerance, increase by 5ml/hr q12hrs until goal. 3. Recommend 1 packet Arginaid daily via tube for wound healing. 4. Monitor weight closely. Hx 4-5lb wt loss in 2 weeks per nursing adm note. Expected Outcomes/Goals Expected Outcomes/Goals 1. Pt to meet at least 75% of estimated nutritinoal eneds on tube feeding with tolerance.
--- NOTE | 2016-12-07 14:06 | General Progress Note ---
Subjective - Review of Systems Service Date: 12/07/16 Subjective: opens eyes, comfortable, on vent Objective - Results Result Diagrams: 12/07/16 04:25 12/07/16 04:25 Recent Labs: Laboratory Last Values WBC 9.1 Th/cmm (4.8-10.8) 12/07/16 04:25 Corrected WBC (auto) 8.8 Th/cmm (4.8-10.8) 12/01/16 18:25 RBC 3.13 Mil/cmm (3.80-5.20) L 12/07/16 04:25 Hgb 9.0 gm/dL (12-16) L 12/07/16 04:25 Hct 27.4 % (41.0-60) L 12/07/16 04:25 MCV 87.4 fl (81-100) 12/07/16 04:25 MCH 28.7 pg (27.0-31.0) 12/07/16 04:25 MCHC Differential 32.9 pg (28.0-36.0) 12/07/16 04:25 RDW 19.3 % (11.5-20.0) 12/07/16 04:25 Plt Count 77 Th/cmm (150-400) L 12/07/16 04:25 MPV 14.2 fl 12/07/16 04:25 Neutrophils % 83.1 % (40.0-80.0) H 12/07/16 04:25 Band Neutrophils % 8 % (0-10) 12/04/16 04:50 Lymphocytes % 10.5 % (20.0-50.0) L 12/07/16 04:25 Monocytes % 4.7 % (2.0-10.0) 12/07/16 04:25 Eosinophils % 1.7 % (0.0-5.0) 12/07/16 04:25 Basophils % 0.0 % (0.0-2.0) 12/07/16 04:25 Neutrophils (Manual) 77 % (40-80) 12/04/16 04:50 Lymphocytes 10 % (20-50) L 12/04/16 04:50 Monocytes 5 % (2-10) 12/04/16 04:50 Eosinophils 3 % (0-5) 12/03/16 05:35 Nucleated RBCs 5.0 % (0-0) H 12/01/16 18:25 Atypical Lymphocytes 1 % 12/01/16 18:25 Platelet Estimate SLIGHT DECREASED (NORMAL) 12/04/16 04:50 Platelet Morphology NORMAL (NORMAL) 12/01/16 18:25 Anisocytosis 2+ 12/03/16 05:35 RBC Morph Micro Appear ABNORMAL (NORMAL) 12/01/16 18:25 Eos Smear Source URINE 12/03/16 06:30 Eos Smear Total Cells NONE SEEN (NONE SEEN) 12/03/16 06:30 PT 11.2 SECONDS (9.5-11.5) 12/03/16 05:35 INR 1.08 (0.5-1.4) 12/03/16 05:35 PTT (Actin FS) 19.6 SECONDS (26.0-38.0) L 12/01/16 18:25 Specimen Source Arterial 12/07/16 09:35 Sample Site LB 12/07/16 09:35 pH 7.38 (7.35-7.45) 12/07/16 09:35 pCO2 23.0 mmHg (35.0-45.0) L* 12/07/16 09:35 pO2 130.0 mmHg (80.0-100.0) H 12/07/16 09:35 HCO3 17.4 mEq/L (20.0-26.0) L 12/07/16 09:35 Base Excess -9.7 mEq/L (-3.0-3.0) L 12/07/16 09:35 O2 Saturation 99.0 % (92.0-100.0) 12/07/16 09:35 Isidro Test NA 12/07/16 09:35 Vent Rate 6 12/07/16 09:35 Inspired O2 30 12/07/16 09:35 Tidal Volume 450 12/07/16 09:35 PEEP 5 12/07/16 09:35 Pressure (ins/psv/peep) 10 12/07/16 09:35 Critical Value E.ZUNIGA 12/07/16 09:35 Sodium 149 mEq/L (136-145) H 12/07/16 04:25 Potassium 3.3 mEq/L (3.5-5.1) L 12/07/16 04:25 Chloride 123 mEq/L (98-107) H 12/07/16 04:25 Carbon Dioxide 15.8 mEq/L (21.0-31.0) L 12/07/16 04:25 Anion Gap 13.5 (7.0-16.0) 12/07/16 04:25 BUN 75 mg/dL (7-25) H 12/07/16 04:25 Creatinine 2.9 mg/dL (0.6-1.2) H 12/07/16 04:25 Est GFR ( Amer) TNP 12/07/16 04:25 Est GFR (Non-Af Amer) TNP 12/07/16 04:25 BUN/Creatinine Ratio 25.9 12/07/16 04:25 Glucose 195 mg/dL (70-105) H 12/07/16 04:25 POC Glucose 190 MG/DL (70 - 105) H 12/07/16 11:56 Hemoglobin A1c % 9.0 % (4.0-6.0) H 12/01/16 18:25 Whole Bld Lactic Acid 2.84 mmol/L (0.60-1.99) H* 12/05/16 12:05 Uric Acid 11.6 mg/dL (2.3-6.6) H 12/03/16 05:35 Calcium 8.5 mg/dL (8.6-10.3) L 12/07/16 04:25 Magnesium 2.7 mg/dL (1.9-2.7) 12/03/16 05:35 Total Bilirubin 0.5 mg/dL (0.3-1.0) 12/05/16 10:05 AST 8 U/L (13-39) L 12/05/16 10:05 ALT 3 U/L (7-52) L 12/05/16 10:05 Alkaline Phosphatase 83 U/L (34-104) 12/05/16 10:05 Total Protein 5.2 gm/dL (6.0-8.3) L 12/05/16 10:05 Albumin 2.4 gm/dL (3.7-5.3) L 12/05/16 10:05 Globulin 2.8 gm/dL 12/05/16 10:05 Albumin/Globulin Ratio 0.9 (1.0-1.8) L 12/05/16 10:05 TSH 2.49 uIU/ml (0.34-5.60) 12/03/16 05:35 Urine Source SOTO PORT 12/02/16 14:56 Urine Color YELLOW 12/02/16 14:56 Urine Clarity HAZY (CLEAR) 12/02/16 14:56 Urine pH 8.0 (4.6 - 8.0) 12/02/16 14:56 Ur Specific [place] 1.015 (1.005-1.030) 12/02/16 14:56 Urine Protein 100 mg/dL (NEGATIVE) H 12/02/16 14:56 Urine Glucose (UA) 500 mg/dL (NEGATIVE) H 12/02/16 14:56 Urine Ketones NEGATIVE mg/dL (NEGATIVE) 12/02/16 14:56 Urine Blood MODERATE (NEGATIVE) H 12/02/16 14:56 Urine Nitrate POSITIVE (NEGATIVE) H 12/02/16 14:56 Urine Bilirubin NEGATIVE (NEGATIVE) 12/02/16 14:56 Urine Urobilinogen 0.2 E.U./dL (0.2 - 1.0) 12/02/16 14:56 Ur Leukocyte Esterase MODERATE (NEGATIVE) H 12/02/16 14:56 Urine RBC 5-10 /hpf (0-5) H 12/02/16 14:56 Urine WBC 50-100 /hpf (0-5) H 12/02/16 14:56 Ur Epithelial Cells FEW /lpf (FEW) 12/02/16 14:56 Triple Phos Crystals MODERATE /hpf (FEW) 12/02/16 14:56 Urine Bacteria MANY /hpf (NONE SEEN) 12/02/16 14:56 Urine Osmolality 488 mOsmol/kg 12/03/16 06:30 Ur Random Sodium 75 mmol/L 12/03/16 06:30 Urine Creatinine 49.0 mg/dl (28.0-217.0) 12/03/16 06:30 Blood Type O POSITIVE 12/02/16 05:05 Antibody Screen NEGATIVE 12/02/16 05:05 Crossmatch See Detail 12/02/16 05:05 - Physical Exam Vitals and I&O: Vital Signs Temp 98.2 F 12/07/16 12:00 Pulse 106 12/07/16 13:17 Resp 20 12/07/16 13:00 BP 120/64 12/07/16 13:00 Pulse Ox 99 12/07/16 13:17 Intake & Output 12/06/16 12/07/16 12/07/16 18:59 06:59 18:59 Intake Total 590 1540 150 Output Total 503 400 Balance 87 1140 150 Weight (lbs) 53.07 kg 53.615 kg Intake: Intake, IV Amount 250 1200 150 Dextrose 5% 1,000 ml @ 1000 100 mls/hr IV .Q10H [facility] Rx#:[id number] Piperacillin Sodium/ 50 100 50 Tazobact 2.25 gm In Dextrose 5% 50 ml @ 100 mls/hr IV Q8H [facility] Rx#: [id number] metroNIDAZOLE 500mg/NS 200 100 100 100mL 500 mg In Premix Fluid 1 bag @ 100 mls/hr IV Q8H [facility] Rx#:[id number] Tube Feeding 240 240 Other 100 100 Output: Urine 500 400 Stool 3 0 Active Medications: Current Medications Acetaminophen (Tylenol) 650 mg PO Q6H PRN PRN Reason: Mild Pain or Fever >101 Stop: 01/31/17 11:18 Albuterol/Ipratropium (Duoneb Neb) 3 ml HHN Q6HRT [facility] Stop: 02/04/17 12:59 Last Admin: 12/07/16 13:16 Dose: 3 ml Albuterol/Ipratropium (Duoneb Neb) 3 ml HHN Q2HRT PRN PRN Reason: Wheezing Stop: 02/04/17 10:02 Last Admin: 12/06/16 10:23 Dose: 3 ml Bisacodyl (Dulcolax 5 Mg Ec Tab) 10 mg PO BID [facility] Stop: 01/31/17 16:59 Last Admin: 12/07/16 08:50 Dose: 10 mg Chlorhexidine Gluconate (Peridex) 15 ml MM 0800,1999 [facility] Stop: 02/03/17 19:59 Last Admin: 12/07/16 08:43 Dose: 15 ml Epoetin Esequiel (Epogen) 10,000 units SUBQ TuThSa [facility] Stop: 02/01/17 14:29 Last Admin: 12/06/16 17:01 Dose: 10,000 units Hydromorphone HCl (Dilaudid) 1 mg IVP Q6HR PRN PRN Reason: Pain (Moderate-Severe) Stop: 02/04/17 08:11 Last Admin: 12/07/16 01:35 Dose: 1 mg Piperacillin Sod/Tazobactam (Sod 2.25 gm/ Dextrose) 50 mls @ 100 mls/hr IV Q8H [facility] Stop: 02/03/17 10:59 Last Infusion: 12/07/16 11:32 Dose: Infused Metronidazole 500 mg/ (Miscellaneous) 100 mls @ 100 mls/hr IV Q8H [facility] Stop: 02/03/17 09:59 Last Infusion: 12/07/16 10:59 Dose: Infused Dextrose (D5w) 1,000 mls @ 50 mls/hr IV .Q20H [facility] Stop: 02/05/17 11:25 Insulin Aspart (Novolog Insulin Sliding Scale) 0 units SUBQ ACHS [facility] PRN Reason: Protocol Stop: 01/31/17 07:29 Last Admin: 12/07/16 12:10 Dose: 3 units Insulin Detemir (Levemir Insulin) 10 units SUBQ HS [facility] PRN Reason: Protocol Stop: 02/03/17 20:59 Last Admin: 12/06/16 21:02 Dose: 10 unit Lorazepam (Ativan) 1 mg IVP Q8HR PRN; Protocol PRN Reason: AGITATION Stop: 02/04/17 19:42 Last Admin: 12/06/16 21:16 Dose: 1 mg Miscellaneous (Vte Chemical Prophylaxis Screen/ Admission) 1 ea PRN PRN PRN Reason: PROTOCOL Stop: 01/31/17 13:38 Miscellaneous (Clinical Monitoring) 1 ea DAILY PRN PRN Reason: RENAL Stop: 02/04/17 08:05 Pantoprazole Sodium (Protonix) 40 mg IVP DAILY [facility] Stop: 02/01/17 08:59 Last Admin: 12/07/16 08:47 Dose: 40 mg Potassium Chloride (Potassium Chloride Elixir) 20 meq GT DAILY [facility] Stop: 02/05/17 09:14 Last Admin: 12/07/16 10:01 Dose: 20 meq Sodium Bicarbonate (Sodium Bicarbonate) 650 mg GT TID [facility] PRN Reason: Protocol Stop: 02/05/17 20:59 General: No acute distress, Other (Patient is awake, restless trying to take off tubes.) HEENT: Atraumatic, Mucous membr. moist/pink, Other (Patient is intubated) Neck: Supple, +2 carotid pulse wo bruit Cardiovascular: Regular rate, Normal S1, Normal S2 Lungs: Clear to auscultation, Other (few rhonchi) Abdomen: Bowel sounds, Soft, Other (PEG in place, Colostomy in place) Extremities: Other (No edema), no Edema Neurological: Sensation intact, Other (Non ambulatory) Skin: Other (Decubit sacral ulcer stage IV), no Significant lesion Psych/Mental Status: Mood NL, Other (Awake, alert, restless, intubated) - Procedures Procedures: Procedures Procedure Code Date BYPASS DESCENDING COLON TO CUTANEOUS, OPEN APPROACH [id number] 12/02/16 COLOSTOMY 88965 12/02/16 CHAGO BONE 20 SQ CM/< 46329 12/02/16 CHAGO MUSC/FASCIA 20 SQ CM/< 14669 10/24/16 CHAGO SUBQ TISSUE 20 SQ CM/< 69831 12/02/16 EXCISION OF L FOOT SUBCU/FASCIA, OPEN APPROACH [id number] 12/02/16 EXCISION OF LEFT HIP MUSCLE, OPEN APPROACH [id number] 10/24/16 EXCISION OF LEFT PELVIC BONE, OPEN APPROACH [id number] 12/02/16 EXCISION OF R FOOT SUBCU/FASCIA, OPEN APPROACH [id number] 12/02/16 RESPIRATORY VENTILATION, 24-96 CONSECUTIVE HOURS [id number] 12/02/16 Assessment/Plan - Problem List Patient Problems: All Active Problems POOR ORAL INTAKE AND SWALLOWING (Acute) SACRAL AND BILATERAL BUTTOCK SKIN ULCERS (Acute) - Assessment Assessment: Bryan on CKD dehydration FTT 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 Anemia CKD Left hip ulcer s/p debridement w/ Vac B/L heel ulcers s/p debridement s/p Diverting colostomy - Plan Plan: Lab - Result Diagrams 12/03/16 05:35 12/03/16 05:35 Current Medications Acetaminophen (Tylenol) 650 mg PO Q6H PRN PRN Reason: Pain or Fever >101 Stop: 01/31/17 11:18 Bisacodyl (Dulcolax 5 Mg Ec Tab) 10 mg PO BID [facility] Stop: 01/31/17 16:59 Last Admin: 12/03/16 11:07 Dose: 10 mg Dextrose (D5w) 1,000 mls @ 125 mls/hr IV .Q8H [facility] Stop: 02/01/17 14:14 Insulin Aspart (Novolog Insulin Sliding Scale) 0 units SUBQ ACHS [facility] PRN Reason: Protocol Stop: 01/31/17 07:29 Last Admin: 12/03/16 12:32 Dose: 9 units Miscellaneous (Vte Chemical Prophylaxis Screen/ Admission) 1 ea MC PRN PRN PRN Reason: PROTOCOL Stop: 01/31/17 13:38 Pantoprazole Sodium (Protonix) 40 mg IVP DAILY [facility] Stop: 02/01/17 08:59 Last Admin: 12/03/16 11:07 Dose: 40 mg Sodium Bicarbonate (Sodium Bicarbonate) 650 mg PO BID [facility] PRN Reason: Protocol Stop: 01/31/17 16:59 Last Admin: 12/03/16 11:07 Dose: 650 mg Lab - Result Diagrams 12/07/16 04:25 12/07/16 04:25 kidney fnc gradually improving back to D5W 100ml/hr w/ increase in Na Had placement of PEG start feeding today w/ glucerna @ 20ml/hr start epo Hgb down to 7.9 up to 10.2 after transfusion continue IVF, start basal insulin BS under better control Agree w/ K replacement, increase NaHC03 Nutritional Asmnt/Malnutr-PDOC - Dietary Evaluation Malnutrition Findings (Please click <Entered> for more info): Nutritional Asmnt/Malnutrition Start: 12/02/16 14: 44 Text: Status: Complete Freq: Document 12/02/16 14:44 GSUN (Rec: 12/02/16 15:19 GSUN [id number]) Nutritional Asmnt/Malnutrition Patient General Information Nutritional Screening Consult Diagnosis AKF, sacral decubitus ulcer stage IV, HTN, DM, dementia, chronic anemia Pertinent Medical Hx/Surgical Hx CAD, CVA, dementia, psychosis, muscle atrophy, AKF, DM, decubitus ulcer stage IV Subjective Information 81 year old female from SNF. RD consult for low Elliot and elevated blood glucose. Pt was awake, unable to provide nutrition hx. Family at bedside, spoke to family and HAI Pimentel regarding nutrition plan of care, PEG placement consent obtained. Family has no other questions at this time. 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 Per nursing adm notes , 4-5lb wt loss in 2 weeks. Per family, unaware of UBW, aware of recent wt loss, stated pt stopped eating ~3-4 days ago. Loose skin, moderate to severe muslce fat wasting to chest and clavicles. Current Diet Order/ Nutrition Support NPO Pertinent Medications Dulcolax, D5-0.45ns, Novolog Pertinent Labs 12/01: A1c 9H 12/02: sodium 173H, potassium 5.3H, BUN 169H, creatinie 5.8H , glucose 238H, calcium 10.8H Nutritional Hx/Data Height 1.52 m Height (Calculated Centimeters) 152.4 Current Weight (lbs) 43.545 kg Weight (Calculated Kilograms) 43.5 Weight (Calculated Grams) 39736.9 [place] Body Weight 100 Recent Weight Change Yes Weight Status Approriate GI Symptoms Usual diet at home [facility]: pureed, ALISE , [facility] Skin Integrity/Comment: Elliot 11. Sacral decubitus ulcer stage IV. Estimated Nutritional Goals Calories/Kcals/Kg IBW 100lb/45.5kg Kcals Calculated 1365-1593kcal (30-35kcal/kg) Protein Calculated 68-73g (1.4-1.6g/kg, ulcer vs renal, ?HD) Fluid: ml Per MD Nutritional Problem 3. Problem Problem Altered nutrition related laboratory values related to Etiology DM aeb Signs/Symptoms: A1c 9H, glucose 238H 2. Problem Problem Increased kcal and prot needs related to Etiology skin integrity, recent weight loss aeb Signs/Symptoms: Sacral decubitus ulcer stage IV, wt loss 4-5lb in 2 weeks per nursing adm notes, moderate to seevre muslce/fat wasting to chest and clavicles 1. Problem Problem Impaired nutrient utilization related to Etiology acute kidney injury aeb Signs/Symptoms: potassium 5.3H, BUN 169H, creatinie 5.8H, calcium 10.8H Intervention/Recommendation Comments 1. Discussed enteral nutrition with family. Family has no further questions at this time . 2. When medically feasible to initiate feeding, recommend Novasource Renal at 30ml/hr x 24hrs, providing 720ml total volume, 1440kcal, 65g protein. Initiate at 10ml/hr for first 24 hrs, monitor for refeeding syndrome and tolerance, increase by 5ml/hr q12hrs until goal. 3. Recommend 1 packet Arginaid daily via tube for wound healing. 4. Monitor weight closely. Hx 4-5lb wt loss in 2 weeks per nursing adm note. Expected Outcomes/Goals Expected Outcomes/Goals 1. Pt to meet at least 75% of estimated nutritinoal eneds on tube feeding with tolerance.
--- NOTE | 2016-12-07 15:39 | GI Progress Note ---
Subjective - Review of Systems Service Date: 12/07/16 Subjective: Sedated on ventilator. No apparent distress Objective - Results Result Diagrams: 12/07/16 04:25 12/07/16 04:25 Recent Labs: Laboratory Last Values WBC 9.1 Th/cmm (4.8-10.8) 12/07/16 04:25 Corrected WBC (auto) 8.8 Th/cmm (4.8-10.8) 12/01/16 18:25 RBC 3.13 Mil/cmm (3.80-5.20) L 12/07/16 04:25 Hgb 9.0 gm/dL (12-16) L 12/07/16 04:25 Hct 27.4 % (41.0-60) L 12/07/16 04:25 MCV 87.4 fl (81-100) 12/07/16 04:25 MCH 28.7 pg (27.0-31.0) 12/07/16 04:25 MCHC Differential 32.9 pg (28.0-36.0) 12/07/16 04:25 RDW 19.3 % (11.5-20.0) 12/07/16 04:25 Plt Count 77 Th/cmm (150-400) L 12/07/16 04:25 MPV 14.2 fl 12/07/16 04:25 Neutrophils % 83.1 % (40.0-80.0) H 12/07/16 04:25 Band Neutrophils % 8 % (0-10) 12/04/16 04:50 Lymphocytes % 10.5 % (20.0-50.0) L 12/07/16 04:25 Monocytes % 4.7 % (2.0-10.0) 12/07/16 04:25 Eosinophils % 1.7 % (0.0-5.0) 12/07/16 04:25 Basophils % 0.0 % (0.0-2.0) 12/07/16 04:25 Neutrophils (Manual) 77 % (40-80) 12/04/16 04:50 Lymphocytes 10 % (20-50) L 12/04/16 04:50 Monocytes 5 % (2-10) 12/04/16 04:50 Eosinophils 3 % (0-5) 12/03/16 05:35 Nucleated RBCs 5.0 % (0-0) H 12/01/16 18:25 Atypical Lymphocytes 1 % 12/01/16 18:25 Platelet Estimate SLIGHT DECREASED (NORMAL) 12/04/16 04:50 Platelet Morphology NORMAL (NORMAL) 12/01/16 18:25 Anisocytosis 2+ 12/03/16 05:35 RBC Morph Micro Appear ABNORMAL (NORMAL) 12/01/16 18:25 Eos Smear Source URINE 12/03/16 06:30 Eos Smear Total Cells NONE SEEN (NONE SEEN) 12/03/16 06:30 PT 11.2 SECONDS (9.5-11.5) 12/03/16 05:35 INR 1.08 (0.5-1.4) 12/03/16 05:35 PTT (Actin FS) 19.6 SECONDS (26.0-38.0) L 12/01/16 18:25 Specimen Source Arterial 12/07/16 09:35 Sample Site LB 12/07/16 09:35 pH 7.38 (7.35-7.45) 12/07/16 09:35 pCO2 23.0 mmHg (35.0-45.0) L* 12/07/16 09:35 pO2 130.0 mmHg (80.0-100.0) H 12/07/16 09:35 HCO3 17.4 mEq/L (20.0-26.0) L 12/07/16 09:35 Base Excess -9.7 mEq/L (-3.0-3.0) L 12/07/16 09:35 O2 Saturation 99.0 % (92.0-100.0) 12/07/16 09:35 Isidro Test NA 12/07/16 09:35 Vent Rate 6 12/07/16 09:35 Inspired O2 30 12/07/16 09:35 Tidal Volume 450 12/07/16 09:35 PEEP 5 12/07/16 09:35 Pressure (ins/psv/peep) 10 12/07/16 09:35 Critical Value E.ZUNIGA 12/07/16 09:35 Sodium 149 mEq/L (136-145) H 12/07/16 04:25 Potassium 3.3 mEq/L (3.5-5.1) L 12/07/16 04:25 Chloride 123 mEq/L (98-107) H 12/07/16 04:25 Carbon Dioxide 15.8 mEq/L (21.0-31.0) L 12/07/16 04:25 Anion Gap 13.5 (7.0-16.0) 12/07/16 04:25 BUN 75 mg/dL (7-25) H 12/07/16 04:25 Creatinine 2.9 mg/dL (0.6-1.2) H 12/07/16 04:25 Est GFR ( Amer) TNP 12/07/16 04:25 Est GFR (Non-Af Amer) TNP 12/07/16 04:25 BUN/Creatinine Ratio 25.9 12/07/16 04:25 Glucose 195 mg/dL (70-105) H 12/07/16 04:25 POC Glucose 190 MG/DL (70 - 105) H 12/07/16 11:56 Hemoglobin A1c % 9.0 % (4.0-6.0) H 12/01/16 18:25 Whole Bld Lactic Acid 2.84 mmol/L (0.60-1.99) H* 12/05/16 12:05 Uric Acid 11.6 mg/dL (2.3-6.6) H 12/03/16 05:35 Calcium 8.5 mg/dL (8.6-10.3) L 12/07/16 04:25 Magnesium 2.7 mg/dL (1.9-2.7) 12/03/16 05:35 Total Bilirubin 0.5 mg/dL (0.3-1.0) 12/05/16 10:05 AST 8 U/L (13-39) L 12/05/16 10:05 ALT 3 U/L (7-52) L 12/05/16 10:05 Alkaline Phosphatase 83 U/L (34-104) 12/05/16 10:05 Total Protein 5.2 gm/dL (6.0-8.3) L 12/05/16 10:05 Albumin 2.4 gm/dL (3.7-5.3) L 12/05/16 10:05 Globulin 2.8 gm/dL 12/05/16 10:05 Albumin/Globulin Ratio 0.9 (1.0-1.8) L 12/05/16 10:05 TSH 2.49 uIU/ml (0.34-5.60) 12/03/16 05:35 Urine Source SOTO PORT 12/02/16 14:56 Urine Color YELLOW 12/02/16 14:56 Urine Clarity HAZY (CLEAR) 12/02/16 14:56 Urine pH 8.0 (4.6 - 8.0) 12/02/16 14:56 Ur Specific [place] 1.015 (1.005-1.030) 12/02/16 14:56 Urine Protein 100 mg/dL (NEGATIVE) H 12/02/16 14:56 Urine Glucose (UA) 500 mg/dL (NEGATIVE) H 12/02/16 14:56 Urine Ketones NEGATIVE mg/dL (NEGATIVE) 12/02/16 14:56 Urine Blood MODERATE (NEGATIVE) H 12/02/16 14:56 Urine Nitrate POSITIVE (NEGATIVE) H 12/02/16 14:56 Urine Bilirubin NEGATIVE (NEGATIVE) 12/02/16 14:56 Urine Urobilinogen 0.2 E.U./dL (0.2 - 1.0) 12/02/16 14:56 Ur Leukocyte Esterase MODERATE (NEGATIVE) H 12/02/16 14:56 Urine RBC 5-10 /hpf (0-5) H 12/02/16 14:56 Urine WBC 50-100 /hpf (0-5) H 12/02/16 14:56 Ur Epithelial Cells FEW /lpf (FEW) 12/02/16 14:56 Triple Phos Crystals MODERATE /hpf (FEW) 12/02/16 14:56 Urine Bacteria MANY /hpf (NONE SEEN) 12/02/16 14:56 Urine Osmolality 488 mOsmol/kg 12/03/16 06:30 Ur Random Sodium 75 mmol/L 12/03/16 06:30 Urine Creatinine 49.0 mg/dl (28.0-217.0) 12/03/16 06:30 Blood Type O POSITIVE 12/02/16 05:05 Antibody Screen NEGATIVE 12/02/16 05:05 Crossmatch See Detail 12/02/16 05:05 - Physical Exam Vitals and I&O: Vital Signs Temp 98.2 F 12/07/16 12:00 Pulse 106 12/07/16 15:00 Resp 21 12/07/16 15:00 BP 105/58 12/07/16 15:00 Pulse Ox 99 12/07/16 15:00 Intake & Output 12/06/16 12/07/16 12/07/16 18:59 06:59 18:59 Intake Total 590 1540 150 Output Total 503 400 Balance 87 1140 150 Weight (lbs) 53.07 kg 53.615 kg Intake: Intake, IV Amount 250 1200 150 Dextrose 5% 1,000 ml @ 1000 100 mls/hr IV .Q10H [facility] Rx#:[id number] Piperacillin Sodium/ 50 100 50 Tazobact 2.25 gm In Dextrose 5% 50 ml @ 100 mls/hr IV Q8H [facility] Rx#: [id number] metroNIDAZOLE 500mg/NS 200 100 100 100mL 500 mg In Premix Fluid 1 bag @ 100 mls/hr IV Q8H [facility] Rx#:[id number] Tube Feeding 240 240 Other 100 100 Output: Urine 500 400 Stool 3 0 Active Medications: Current Medications Acetaminophen (Tylenol) 650 mg PO Q6H PRN PRN Reason: Mild Pain or Fever >101 Stop: 01/31/17 11:18 Albuterol/Ipratropium (Duoneb Neb) 3 ml HHN Q6HRT [facility] Stop: 02/04/17 12:59 Last Admin: 12/07/16 13:16 Dose: 3 ml Albuterol/Ipratropium (Duoneb Neb) 3 ml HHN Q2HRT PRN PRN Reason: Wheezing Stop: 02/04/17 10:02 Last Admin: 12/06/16 10:23 Dose: 3 ml Bisacodyl (Dulcolax 5 Mg Ec Tab) 10 mg PO BID [facility] Stop: 01/31/17 16:59 Last Admin: 12/07/16 08:50 Dose: 10 mg Chlorhexidine Gluconate (Peridex) 15 ml MM 08,1999 [facility] Stop: 02/03/17 19:59 Last Admin: 12/07/16 08:43 Dose: 15 ml Epoetin Esequiel (Epogen) 10,000 units SUBQ TuThSa [facility] Stop: 02/01/17 14:29 Last Admin: 12/06/16 17:01 Dose: 10,000 units Hydromorphone HCl (Dilaudid) 1 mg IVP Q6HR PRN PRN Reason: Pain (Moderate-Severe) Stop: 02/04/17 08:11 Last Admin: 12/07/16 01:35 Dose: 1 mg Piperacillin Sod/Tazobactam (Sod 2.25 gm/ Dextrose) 50 mls @ 100 mls/hr IV Q8H [facility] Stop: 02/03/17 10:59 Last Infusion: 12/07/16 11:32 Dose: Infused Metronidazole 500 mg/ (Miscellaneous) 100 mls @ 100 mls/hr IV Q8H [facility] Stop: 02/03/17 09:59 Last Infusion: 12/07/16 10:59 Dose: Infused Dextrose (D5w) 1,000 mls @ 50 mls/hr IV .Q20H [facility] Stop: 02/05/17 11:25 Insulin Aspart (Novolog Insulin Sliding Scale) 0 units SUBQ ACHS [facility]ELLE PRN Reason: Protocol Stop: 01/31/17 07:29 Last Admin: 12/07/16 12:10 Dose: 3 units Insulin Detemir (Levemir Insulin) 10 units SUBQ HS [facility] PRN Reason: Protocol Stop: 02/03/17 20:59 Last Admin: 12/06/16 21:02 Dose: 10 unit Lorazepam (Ativan) 1 mg IVP Q8HR PRN; Protocol PRN Reason: AGITATION Stop: 02/04/17 19:42 Last Admin: 12/06/16 21:16 Dose: 1 mg Miscellaneous (Vte Chemical Prophylaxis Screen/ Admission) 1 ea PRN PRN PRN Reason: PROTOCOL Stop: 01/31/17 13:38 Miscellaneous (Clinical Monitoring) 1 ea MC DAILY PRN PRN Reason: RENAL Stop: 02/04/17 08:05 Pantoprazole Sodium (Protonix) 40 mg IVP DAILY [facility] Stop: 02/01/17 08:59 Last Admin: 12/07/16 08:47 Dose: 40 mg Potassium Chloride (Potassium Chloride Elixir) 20 meq GT DAILY [facility] Stop: 02/05/17 09:14 Last Admin: 12/07/16 10:01 Dose: 20 meq Sodium Bicarbonate (Sodium Bicarbonate) 650 mg GT TID BRIELLE PRN Reason: Protocol Stop: 02/05/17 20:59 General: No acute distress, Other (Patient is awake, restless trying to take off tubes.) HEENT: Atraumatic Neck: Supple Cardiovascular: Regular rate Abdomen: Bowel sounds, Soft, Other (PEG in place, Colostomy in place) Extremities: Other (No edema), no Edema Skin: no Significant lesion - Procedures Procedures: Procedures Procedure Code Date BYPASS DESCENDING COLON TO CUTANEOUS, OPEN APPROACH [id number] 12/02/16 COLOSTOMY [id number] 12/02/16 CHAGO BONE 20 SQ CM/< [id number] 12/02/16 CHAGO MUSC/FASCIA 20 SQ CM/< 13870 10/24/16 CHAGO SUBQ TISSUE 20 SQ CM/< 60188 12/02/16 EXCISION OF L FOOT SUBCU/FASCIA, OPEN APPROACH [id number] 12/02/16 EXCISION OF LEFT HIP MUSCLE, OPEN APPROACH [id number] 10/24/16 EXCISION OF LEFT PELVIC BONE, OPEN APPROACH [id number] 12/02/16 EXCISION OF R FOOT SUBCU/FASCIA, OPEN APPROACH [id number] 12/02/16 RESPIRATORY VENTILATION, 24-96 CONSECUTIVE HOURS [id number] 12/02/16 Assessment/Plan - Problem List Patient Problems: All Active Problems POOR ORAL INTAKE AND SWALLOWING (Acute) SACRAL AND BILATERAL BUTTOCK SKIN ULCERS (Acute) - Assessment Assessment: # Dysphagia, sp/p PEG placement on 12/03 - Tolerating feeds without issue - hold for residuals greater than 200cc - 100c water flushes every 6 hours # 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
--- NOTE | 2016-12-07 15:39 | GI Progress Note ---
Subjective - Review of Systems Service Date: 12/07/16 Subjective: Sedated on ventilator. No apparent distress Objective - Results Result Diagrams: 12/07/16 04:25 12/07/16 04:25 Recent Labs: Laboratory Last Values WBC 9.1 Th/cmm (4.8-10.8) 12/07/16 04:25 Corrected WBC (auto) 8.8 Th/cmm (4.8-10.8) 12/01/16 18:25 RBC 3.13 Mil/cmm (3.80-5.20) L 12/07/16 04:25 Hgb 9.0 gm/dL (12-16) L 12/07/16 04:25 Hct 27.4 % (41.0-60) L 12/07/16 04:25 MCV 87.4 fl (81-100) 12/07/16 04:25 MCH 28.7 pg (27.0-31.0) 12/07/16 04:25 MCHC Differential 32.9 pg (28.0-36.0) 12/07/16 04:25 RDW 19.3 % (11.5-20.0) 12/07/16 04:25 Plt Count 77 Th/cmm (150-400) L 12/07/16 04:25 MPV 14.2 fl 12/07/16 04:25 Neutrophils % 83.1 % (40.0-80.0) H 12/07/16 04:25 Band Neutrophils % 8 % (0-10) 12/04/16 04:50 Lymphocytes % 10.5 % (20.0-50.0) L 12/07/16 04:25 Monocytes % 4.7 % (2.0-10.0) 12/07/16 04:25 Eosinophils % 1.7 % (0.0-5.0) 12/07/16 04:25 Basophils % 0.0 % (0.0-2.0) 12/07/16 04:25 Neutrophils (Manual) 77 % (40-80) 12/04/16 04:50 Lymphocytes 10 % (20-50) L 12/04/16 04:50 Monocytes 5 % (2-10) 12/04/16 04:50 Eosinophils 3 % (0-5) 12/03/16 05:35 Nucleated RBCs 5.0 % (0-0) H 12/01/16 18:25 Atypical Lymphocytes 1 % 12/01/16 18:25 Platelet Estimate SLIGHT DECREASED (NORMAL) 12/04/16 04:50 Platelet Morphology NORMAL (NORMAL) 12/01/16 18:25 Anisocytosis 2+ 12/03/16 05:35 RBC Morph Micro Appear ABNORMAL (NORMAL) 12/01/16 18:25 Eos Smear Source URINE 12/03/16 06:30 Eos Smear Total Cells NONE SEEN (NONE SEEN) 12/03/16 06:30 PT 11.2 SECONDS (9.5-11.5) 12/03/16 05:35 INR 1.08 (0.5-1.4) 12/03/16 05:35 PTT (Actin FS) 19.6 SECONDS (26.0-38.0) L 12/01/16 18:25 Specimen Source Arterial 12/07/16 09:35 Sample Site LB 12/07/16 09:35 pH 7.38 (7.35-7.45) 12/07/16 09:35 pCO2 23.0 mmHg (35.0-45.0) L* 12/07/16 09:35 pO2 130.0 mmHg (80.0-100.0) H 12/07/16 09:35 HCO3 17.4 mEq/L (20.0-26.0) L 12/07/16 09:35 Base Excess -9.7 mEq/L (-3.0-3.0) L 12/07/16 09:35 O2 Saturation 99.0 % (92.0-100.0) 12/07/16 09:35 Isidro Test NA 12/07/16 09:35 Vent Rate 6 12/07/16 09:35 Inspired O2 30 12/07/16 09:35 Tidal Volume 450 12/07/16 09:35 PEEP 5 12/07/16 09:35 Pressure (ins/psv/peep) 10 12/07/16 09:35 Critical Value E.ZUNIGA 12/07/16 09:35 Sodium 149 mEq/L (136-145) H 12/07/16 04:25 Potassium 3.3 mEq/L (3.5-5.1) L 12/07/16 04:25 Chloride 123 mEq/L (98-107) H 12/07/16 04:25 Carbon Dioxide 15.8 mEq/L (21.0-31.0) L 12/07/16 04:25 Anion Gap 13.5 (7.0-16.0) 12/07/16 04:25 BUN 75 mg/dL (7-25) H 12/07/16 04:25 Creatinine 2.9 mg/dL (0.6-1.2) H 12/07/16 04:25 Est GFR ( Amer) TNP 12/07/16 04:25 Est GFR (Non-Af Amer) TNP 12/07/16 04:25 BUN/Creatinine Ratio 25.9 12/07/16 04:25 Glucose 195 mg/dL (70-105) H 12/07/16 04:25 POC Glucose 190 MG/DL (70 - 105) H 12/07/16 11:56 Hemoglobin A1c % 9.0 % (4.0-6.0) H 12/01/16 18:25 Whole Bld Lactic Acid 2.84 mmol/L (0.60-1.99) H* 12/05/16 12:05 Uric Acid 11.6 mg/dL (2.3-6.6) H 12/03/16 05:35 Calcium 8.5 mg/dL (8.6-10.3) L 12/07/16 04:25 Magnesium 2.7 mg/dL (1.9-2.7) 12/03/16 05:35 Total Bilirubin 0.5 mg/dL (0.3-1.0) 12/05/16 10:05 AST 8 U/L (13-39) L 12/05/16 10:05 ALT 3 U/L (7-52) L 12/05/16 10:05 Alkaline Phosphatase 83 U/L (34-104) 12/05/16 10:05 Total Protein 5.2 gm/dL (6.0-8.3) L 12/05/16 10:05 Albumin 2.4 gm/dL (3.7-5.3) L 12/05/16 10:05 Globulin 2.8 gm/dL 12/05/16 10:05 Albumin/Globulin Ratio 0.9 (1.0-1.8) L 12/05/16 10:05 TSH 2.49 uIU/ml (0.34-5.60) 12/03/16 05:35 Urine Source SOTO PORT 12/02/16 14:56 Urine Color YELLOW 12/02/16 14:56 Urine Clarity HAZY (CLEAR) 12/02/16 14:56 Urine pH 8.0 (4.6 - 8.0) 12/02/16 14:56 Ur Specific [place] 1.015 (1.005-1.030) 12/02/16 14:56 Urine Protein 100 mg/dL (NEGATIVE) H 12/02/16 14:56 Urine Glucose (UA) 500 mg/dL (NEGATIVE) H 12/02/16 14:56 Urine Ketones NEGATIVE mg/dL (NEGATIVE) 12/02/16 14:56 Urine Blood MODERATE (NEGATIVE) H 12/02/16 14:56 Urine Nitrate POSITIVE (NEGATIVE) H 12/02/16 14:56 Urine Bilirubin NEGATIVE (NEGATIVE) 12/02/16 14:56 Urine Urobilinogen 0.2 E.U./dL (0.2 - 1.0) 12/02/16 14:56 Ur Leukocyte Esterase MODERATE (NEGATIVE) H 12/02/16 14:56 Urine RBC 5-10 /hpf (0-5) H 12/02/16 14:56 Urine WBC 50-100 /hpf (0-5) H 12/02/16 14:56 Ur Epithelial Cells FEW /lpf (FEW) 12/02/16 14:56 Triple Phos Crystals MODERATE /hpf (FEW) 12/02/16 14:56 Urine Bacteria MANY /hpf (NONE SEEN) 12/02/16 14:56 Urine Osmolality 488 mOsmol/kg 12/03/16 06:30 Ur Random Sodium 75 mmol/L 12/03/16 06:30 Urine Creatinine 49.0 mg/dl (28.0-217.0) 12/03/16 06:30 Blood Type O POSITIVE 12/02/16 05:05 Antibody Screen NEGATIVE 12/02/16 05:05 Crossmatch See Detail 12/02/16 05:05 - Physical Exam Vitals and I&O: Vital Signs Temp 98.2 F 12/07/16 12:00 Pulse 106 12/07/16 15:00 Resp 21 12/07/16 15:00 BP 105/58 12/07/16 15:00 Pulse Ox 99 12/07/16 15:00 Intake & Output 12/06/16 12/07/16 12/07/16 18:59 06:59 18:59 Intake Total 590 1540 150 Output Total 503 400 Balance 87 1140 150 Weight (lbs) 53.07 kg 53.615 kg Intake: Intake, IV Amount 250 1200 150 Dextrose 5% 1,000 ml @ 1000 100 mls/hr IV .Q10H [facility] Rx#:[id number] Piperacillin Sodium/ 50 100 50 Tazobact 2.25 gm In Dextrose 5% 50 ml @ 100 mls/hr IV Q8H [facility] Rx#: [id number] metroNIDAZOLE 500mg/NS 200 100 100 100mL 500 mg In Premix Fluid 1 bag @ 100 mls/hr IV Q8H [facility] Rx#:[id number] Tube Feeding 240 240 Other 100 100 Output: Urine 500 400 Stool 3 0 Active Medications: Current Medications Acetaminophen (Tylenol) 650 mg PO Q6H PRN PRN Reason: Mild Pain or Fever >101 Stop: 01/31/17 11:18 Albuterol/Ipratropium (Duoneb Neb) 3 ml HHN Q6HRT [facility] Stop: 02/04/17 12:59 Last Admin: 12/07/16 13:16 Dose: 3 ml Albuterol/Ipratropium (Duoneb Neb) 3 ml HHN Q2HRT PRN PRN Reason: Wheezing Stop: 02/04/17 10:02 Last Admin: 12/06/16 10:23 Dose: 3 ml Bisacodyl (Dulcolax 5 Mg Ec Tab) 10 mg PO BID [facility] Stop: 01/31/17 16:59 Last Admin: 12/07/16 08:50 Dose: 10 mg Chlorhexidine Gluconate (Peridex) 15 ml MM 08,1999 [facility] Stop: 02/03/17 19:59 Last Admin: 12/07/16 08:43 Dose: 15 ml Epoetin Esequiel (Epogen) 10,000 units SUBQ TuThSa [facility] Stop: 02/01/17 14:29 Last Admin: 12/06/16 17:01 Dose: 10,000 units Hydromorphone HCl (Dilaudid) 1 mg IVP Q6HR PRN PRN Reason: Pain (Moderate-Severe) Stop: 02/04/17 08:11 Last Admin: 12/07/16 01:35 Dose: 1 mg Piperacillin Sod/Tazobactam (Sod 2.25 gm/ Dextrose) 50 mls @ 100 mls/hr IV Q8H [facility] Stop: 02/03/17 10:59 Last Infusion: 12/07/16 11:32 Dose: Infused Metronidazole 500 mg/ (Miscellaneous) 100 mls @ 100 mls/hr IV Q8H [facility] Stop: 02/03/17 09:59 Last Infusion: 12/07/16 10:59 Dose: Infused Dextrose (D5w) 1,000 mls @ 50 mls/hr IV .Q20H [facility] Stop: 02/05/17 11:25 Insulin Aspart (Novolog Insulin Sliding Scale) 0 units SUBQ ACHS [facility] PRN Reason: Protocol Stop: 01/31/17 07:29 Last Admin: 12/07/16 12:10 Dose: 3 units Insulin Detemir (Levemir Insulin) 10 units SUBQ HS [facility] PRN Reason: Protocol Stop: 02/03/17 20:59 Last Admin: 12/06/16 21:02 Dose: 10 unit Lorazepam (Ativan) 1 mg IVP Q8HR PRN; Protocol PRN Reason: AGITATION Stop: 02/04/17 19:42 Last Admin: 12/06/16 21:16 Dose: 1 mg Miscellaneous (Vte Chemical Prophylaxis Screen/ Admission) 1 ea PRN PRN PRN Reason: PROTOCOL Stop: 01/31/17 13:38 Miscellaneous (Clinical Monitoring) 1 ea MC DAILY PRN PRN Reason: RENAL Stop: 02/04/17 08:05 Pantoprazole Sodium (Protonix) 40 mg IVP DAILY [facility] Stop: 02/01/17 08:59 Last Admin: 12/07/16 08:47 Dose: 40 mg Potassium Chloride (Potassium Chloride Elixir) 20 meq GT DAILY [facility] Stop: 02/05/17 09:14 Last Admin: 12/07/16 10:01 Dose: 20 meq Sodium Bicarbonate (Sodium Bicarbonate) 650 mg GT TID [facility] PRN Reason: Protocol Stop: 02/05/17 20:59 General: No acute distress, Other (Patient is awake, restless trying to take off tubes.) HEENT: Atraumatic Neck: Supple Cardiovascular: Regular rate Abdomen: Bowel sounds, Soft, Other (PEG in place, Colostomy in place) Extremities: Other (No edema), no Edema Skin: no Significant lesion - Procedures Procedures: Procedures Procedure Code Date BYPASS DESCENDING COLON TO CUTANEOUS, OPEN APPROACH [id number] 12/02/16 COLOSTOMY 57504 12/02/16 CHAGO BONE 20 SQ CM/< 02740 12/02/16 CHAGO MUSC/FASCIA 20 SQ CM/< 98251 10/24/16 CHAGO SUBQ TISSUE 20 SQ CM/< 86068 12/02/16 EXCISION OF L FOOT SUBCU/FASCIA, OPEN APPROACH [id number] 12/02/16 EXCISION OF LEFT HIP MUSCLE, OPEN APPROACH [id number] 10/24/16 EXCISION OF LEFT PELVIC BONE, OPEN APPROACH [id number] 12/02/16 EXCISION OF R FOOT SUBCU/FASCIA, OPEN APPROACH [id number] 12/02/16 RESPIRATORY VENTILATION, 24-96 CONSECUTIVE HOURS [id number] 12/02/16 Assessment/Plan - Problem List Patient Problems: All Active Problems POOR ORAL INTAKE AND SWALLOWING (Acute) SACRAL AND BILATERAL BUTTOCK SKIN ULCERS (Acute) - Assessment Assessment: # Dysphagia, sp/p PEG placement on 12/03 - Tolerating feeds without issue - hold for residuals greater than 200cc - 100c water flushes every 6 hours # 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
--- NOTE | 2016-12-07 15:39 | GI Progress Note ---
Subjective - Review of Systems Service Date: 12/07/16 Subjective: Sedated on ventilator. No apparent distress Objective - Results Result Diagrams: 12/07/16 04:25 12/07/16 04:25 Recent Labs: Laboratory Last Values WBC 9.1 Th/cmm (4.8-10.8) 12/07/16 04:25 Corrected WBC (auto) 8.8 Th/cmm (4.8-10.8) 12/01/16 18:25 RBC 3.13 Mil/cmm (3.80-5.20) L 12/07/16 04:25 Hgb 9.0 gm/dL (12-16) L 12/07/16 04:25 Hct 27.4 % (41.0-60) L 12/07/16 04:25 MCV 87.4 fl (81-100) 12/07/16 04:25 MCH 28.7 pg (27.0-31.0) 12/07/16 04:25 MCHC Differential 32.9 pg (28.0-36.0) 12/07/16 04:25 RDW 19.3 % (11.5-20.0) 12/07/16 04:25 Plt Count 77 Th/cmm (150-400) L 12/07/16 04:25 MPV 14.2 fl 12/07/16 04:25 Neutrophils % 83.1 % (40.0-80.0) H 12/07/16 04:25 Band Neutrophils % 8 % (0-10) 12/04/16 04:50 Lymphocytes % 10.5 % (20.0-50.0) L 12/07/16 04:25 Monocytes % 4.7 % (2.0-10.0) 12/07/16 04:25 Eosinophils % 1.7 % (0.0-5.0) 12/07/16 04:25 Basophils % 0.0 % (0.0-2.0) 12/07/16 04:25 Neutrophils (Manual) 77 % (40-80) 12/04/16 04:50 Lymphocytes 10 % (20-50) L 12/04/16 04:50 Monocytes 5 % (2-10) 12/04/16 04:50 Eosinophils 3 % (0-5) 12/03/16 05:35 Nucleated RBCs 5.0 % (0-0) H 12/01/16 18:25 Atypical Lymphocytes 1 % 12/01/16 18:25 Platelet Estimate SLIGHT DECREASED (NORMAL) 12/04/16 04:50 Platelet Morphology NORMAL (NORMAL) 12/01/16 18:25 Anisocytosis 2+ 12/03/16 05:35 RBC Morph Micro Appear ABNORMAL (NORMAL) 12/01/16 18:25 Eos Smear Source URINE 12/03/16 06:30 Eos Smear Total Cells NONE SEEN (NONE SEEN) 12/03/16 06:30 PT 11.2 SECONDS (9.5-11.5) 12/03/16 05:35 INR 1.08 (0.5-1.4) 12/03/16 05:35 PTT (Actin FS) 19.6 SECONDS (26.0-38.0) L 12/01/16 18:25 Specimen Source Arterial 12/07/16 09:35 Sample Site LB 12/07/16 09:35 pH 7.38 (7.35-7.45) 12/07/16 09:35 pCO2 23.0 mmHg (35.0-45.0) L* 12/07/16 09:35 pO2 130.0 mmHg (80.0-100.0) H 12/07/16 09:35 HCO3 17.4 mEq/L (20.0-26.0) L 12/07/16 09:35 Base Excess -9.7 mEq/L (-3.0-3.0) L 12/07/16 09:35 O2 Saturation 99.0 % (92.0-100.0) 12/07/16 09:35 Isidro Test NA 12/07/16 09:35 Vent Rate 6 12/07/16 09:35 Inspired O2 30 12/07/16 09:35 Tidal Volume 450 12/07/16 09:35 PEEP 5 12/07/16 09:35 Pressure (ins/psv/peep) 10 12/07/16 09:35 Critical Value E.ZUNIGA 12/07/16 09:35 Sodium 149 mEq/L (136-145) H 12/07/16 04:25 Potassium 3.3 mEq/L (3.5-5.1) L 12/07/16 04:25 Chloride 123 mEq/L (98-107) H 12/07/16 04:25 Carbon Dioxide 15.8 mEq/L (21.0-31.0) L 12/07/16 04:25 Anion Gap 13.5 (7.0-16.0) 12/07/16 04:25 BUN 75 mg/dL (7-25) H 12/07/16 04:25 Creatinine 2.9 mg/dL (0.6-1.2) H 12/07/16 04:25 Est GFR ( Amer) TNP 12/07/16 04:25 Est GFR (Non-Af Amer) TNP 12/07/16 04:25 BUN/Creatinine Ratio 25.9 12/07/16 04:25 Glucose 195 mg/dL (70-105) H 12/07/16 04:25 POC Glucose 190 MG/DL (70 - 105) H 12/07/16 11:56 Hemoglobin A1c % 9.0 % (4.0-6.0) H 12/01/16 18:25 Whole Bld Lactic Acid 2.84 mmol/L (0.60-1.99) H* 12/05/16 12:05 Uric Acid 11.6 mg/dL (2.3-6.6) H 12/03/16 05:35 Calcium 8.5 mg/dL (8.6-10.3) L 12/07/16 04:25 Magnesium 2.7 mg/dL (1.9-2.7) 12/03/16 05:35 Total Bilirubin 0.5 mg/dL (0.3-1.0) 12/05/16 10:05 AST 8 U/L (13-39) L 12/05/16 10:05 ALT 3 U/L (7-52) L 12/05/16 10:05 Alkaline Phosphatase 83 U/L (34-104) 12/05/16 10:05 Total Protein 5.2 gm/dL (6.0-8.3) L 12/05/16 10:05 Albumin 2.4 gm/dL (3.7-5.3) L 12/05/16 10:05 Globulin 2.8 gm/dL 12/05/16 10:05 Albumin/Globulin Ratio 0.9 (1.0-1.8) L 12/05/16 10:05 TSH 2.49 uIU/ml (0.34-5.60) 12/03/16 05:35 Urine Source SOTO PORT 12/02/16 14:56 Urine Color YELLOW 12/02/16 14:56 Urine Clarity HAZY (CLEAR) 12/02/16 14:56 Urine pH 8.0 (4.6 - 8.0) 12/02/16 14:56 Ur Specific [place] 1.015 (1.005-1.030) 12/02/16 14:56 Urine Protein 100 mg/dL (NEGATIVE) H 12/02/16 14:56 Urine Glucose (UA) 500 mg/dL (NEGATIVE) H 12/02/16 14:56 Urine Ketones NEGATIVE mg/dL (NEGATIVE) 12/02/16 14:56 Urine Blood MODERATE (NEGATIVE) H 12/02/16 14:56 Urine Nitrate POSITIVE (NEGATIVE) H 12/02/16 14:56 Urine Bilirubin NEGATIVE (NEGATIVE) 12/02/16 14:56 Urine Urobilinogen 0.2 E.U./dL (0.2 - 1.0) 12/02/16 14:56 Ur Leukocyte Esterase MODERATE (NEGATIVE) H 12/02/16 14:56 Urine RBC 5-10 /hpf (0-5) H 12/02/16 14:56 Urine WBC 50-100 /hpf (0-5) H 12/02/16 14:56 Ur Epithelial Cells FEW /lpf (FEW) 12/02/16 14:56 Triple Phos Crystals MODERATE /hpf (FEW) 12/02/16 14:56 Urine Bacteria MANY /hpf (NONE SEEN) 12/02/16 14:56 Urine Osmolality 488 mOsmol/kg 12/03/16 06:30 Ur Random Sodium 75 mmol/L 12/03/16 06:30 Urine Creatinine 49.0 mg/dl (28.0-217.0) 12/03/16 06:30 Blood Type O POSITIVE 12/02/16 05:05 Antibody Screen NEGATIVE 12/02/16 05:05 Crossmatch See Detail 12/02/16 05:05 - Physical Exam Vitals and I&O: Vital Signs Temp 98.2 F 12/07/16 12:00 Pulse 106 12/07/16 15:00 Resp 21 12/07/16 15:00 BP 105/58 12/07/16 15:00 Pulse Ox 99 12/07/16 15:00 Intake & Output 12/06/16 12/07/16 12/07/16 18:59 06:59 18:59 Intake Total 590 1540 150 Output Total 503 400 Balance 87 1140 150 Weight (lbs) 53.07 kg 53.615 kg Intake: Intake, IV Amount 250 1200 150 Dextrose 5% 1,000 ml @ 1000 100 mls/hr IV .Q10H [facility] Rx#:[id number] Piperacillin Sodium/ 50 100 50 Tazobact 2.25 gm In Dextrose 5% 50 ml @ 100 mls/hr IV Q8H [facility] Rx#: [id number] metroNIDAZOLE 500mg/NS 200 100 100 100mL 500 mg In Premix Fluid 1 bag @ 100 mls/hr IV Q8H [facility] Rx#:[id number] Tube Feeding 240 240 Other 100 100 Output: Urine 500 400 Stool 3 0 Active Medications: Current Medications Acetaminophen (Tylenol) 650 mg PO Q6H PRN PRN Reason: Mild Pain or Fever >101 Stop: 01/31/17 11:18 Albuterol/Ipratropium (Duoneb Neb) 3 ml HHN Q6HRT [facility] Stop: 02/04/17 12:59 Last Admin: 12/07/16 13:16 Dose: 3 ml Albuterol/Ipratropium (Duoneb Neb) 3 ml HHN Q2HRT PRN PRN Reason: Wheezing Stop: 02/04/17 10:02 Last Admin: 12/06/16 10:23 Dose: 3 ml Bisacodyl (Dulcolax 5 Mg Ec Tab) 10 mg PO BID [facility] Stop: 01/31/17 16:59 Last Admin: 12/07/16 08:50 Dose: 10 mg Chlorhexidine Gluconate (Peridex) 15 ml MM 08,1999 [facility] Stop: 02/03/17 19:59 Last Admin: 12/07/16 08:43 Dose: 15 ml Epoetin Esequiel (Epogen) 10,000 units SUBQ TuThSa [facility] Stop: 02/01/17 14:29 Last Admin: 12/06/16 17:01 Dose: 10,000 units Hydromorphone HCl (Dilaudid) 1 mg IVP Q6HR PRN PRN Reason: Pain (Moderate-Severe) Stop: 02/04/17 08:11 Last Admin: 12/07/16 01:35 Dose: 1 mg Piperacillin Sod/Tazobactam (Sod 2.25 gm/ Dextrose) 50 mls @ 100 mls/hr IV Q8H [facility] Stop: 02/03/17 10:59 Last Infusion: 12/07/16 11:32 Dose: Infused Metronidazole 500 mg/ (Miscellaneous) 100 mls @ 100 mls/hr IV Q8H [facility] Stop: 02/03/17 09:59 Last Infusion: 12/07/16 10:59 Dose: Infused Dextrose (D5w) 1,000 mls @ 50 mls/hr IV .Q20H [facility] Stop: 02/05/17 11:25 Insulin Aspart (Novolog Insulin Sliding Scale) 0 units SUBQ ACHS [facility] PRN Reason: Protocol Stop: 01/31/17 07:29 Last Admin: 12/07/16 12:10 Dose: 3 units Insulin Detemir (Levemir Insulin) 10 units SUBQ HS [facility] PRN Reason: Protocol Stop: 02/03/17 20:59 Last Admin: 12/06/16 21:02 Dose: 10 unit Lorazepam (Ativan) 1 mg IVP Q8HR PRN; Protocol PRN Reason: AGITATION Stop: 02/04/17 19:42 Last Admin: 12/06/16 21:16 Dose: 1 mg Miscellaneous (Vte Chemical Prophylaxis Screen/ Admission) 1 ea PRN PRN PRN Reason: PROTOCOL Stop: 01/31/17 13:38 Miscellaneous (Clinical Monitoring) 1 ea MC DAILY PRN PRN Reason: RENAL Stop: 02/04/17 08:05 Pantoprazole Sodium (Protonix) 40 mg IVP DAILY [facility] Stop: 02/01/17 08:59 Last Admin: 12/07/16 08:47 Dose: 40 mg Potassium Chloride (Potassium Chloride Elixir) 20 meq GT DAILY [facility] Stop: 02/05/17 09:14 Last Admin: 12/07/16 10:01 Dose: 20 meq Sodium Bicarbonate (Sodium Bicarbonate) 650 mg GT TID [facility] PRN Reason: Protocol Stop: 02/05/17 20:59 General: No acute distress, Other (Patient is awake, restless trying to take off tubes.) HEENT: Atraumatic Neck: Supple Cardiovascular: Regular rate Abdomen: Bowel sounds, Soft, Other (PEG in place, Colostomy in place) Extremities: Other (No edema), no Edema Skin: no Significant lesion - Procedures Procedures: Procedures Procedure Code Date BYPASS DESCENDING COLON TO CUTANEOUS, OPEN APPROACH [id number] 12/02/16 COLOSTOMY 75730 12/02/16 CHAGO BONE 20 SQ CM/< 63356 12/02/16 CHAGO MUSC/FASCIA 20 SQ CM/< 92719 10/24/16 CHAGO SUBQ TISSUE 20 SQ CM/< 43779 12/02/16 EXCISION OF L FOOT SUBCU/FASCIA, OPEN APPROACH [id number] 12/02/16 EXCISION OF LEFT HIP MUSCLE, OPEN APPROACH [id number] 10/24/16 EXCISION OF LEFT PELVIC BONE, OPEN APPROACH [id number] 12/02/16 EXCISION OF R FOOT SUBCU/FASCIA, OPEN APPROACH [id number] 12/02/16 RESPIRATORY VENTILATION, 24-96 CONSECUTIVE HOURS [id number] 12/02/16 Assessment/Plan - Problem List Patient Problems: All Active Problems POOR ORAL INTAKE AND SWALLOWING (Acute) SACRAL AND BILATERAL BUTTOCK SKIN ULCERS (Acute) - Assessment Assessment: # Dysphagia, sp/p PEG placement on 12/03 - Tolerating feeds without issue - hold for residuals greater than 200cc - 100c water flushes every 6 hours # 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
[2016-12-07] MEDS: Insulin Detemir 100 units/mL 10mL Vial SUBQ SCH (20:35)
[2016-12-08] MEDS: Albuterol/Ipratropium Neb 3 ML AERS HHN SCH ×4 (00:14→19:22)
[2016-12-08] MEDS: metroNIDAZOLE 500mg/NS 100mL 500 MG in Premix Fluid 1 BAG IV SCH ×3 (02:15→19:00)
[2016-12-08] MEDS: HYDROmorphone 1 mg/mL 1mL Syr IVP PRN (02:17)
[2016-12-08 05:05] LABS: MEAN CORPUSCULAR HEMOGLOBIN 28.9 pg (27.0-31.0); MEAN CORPUSCULAR HGB CONC 33.2 pg (28.0-36.0); MEAN PLATELET VOLUME 13.4 fl; PLATELET COUNT 87 Th/cmm (150-400); RED BLOOD COUNT 2.65 Mil/cmm (3.80-5.20); RED CELL DISTRIBUTION WIDTH 19.3 % (11.5-20.0); WHITE BLOOD COUNT 10.7 Th/cmm (4.8-10.8)
[2016-12-08 05:15] LABS: ALB/GLOB RATIO 0.7 (1.0-1.8); ALBUMIN 1.7 gm/dL (3.7-5.3); ALKALINE PHOSPHATASE 280 U/L (34-104); ANION GAP 12.5 (7.0-16.0); BILIRUBIN,TOTAL 0.5 mg/dL (0.3-1.0); BUN - UREA NITROGEN 69 mg/dL (7-25); CARBON DIOXIDE 17.2 mEq/L (21.0-31.0); CHLORIDE 120 mEq/L (98-107); CREATININE - SERUM 2.7 mg/dL (0.6-1.2); GLUCOSE 198 mg/dL (70-105); POTASSIUM SERUM 3.7 mEq/L (3.5-5.1); SGOT 15 U/L (13-39); SGPT/ALT 6 U/L (7-52); SODIUM SERUM 146 mEq/L (136-145)
[2016-12-08 05:25] LABS: HEMOGLOBIN 7.6 gm/dL (12-16); MANUAL DIFF REQUIRED? YES
[2016-12-08 05:56] LABS: NEUTROPHILS 78 % (40-80); TOTAL CELLS COUNTED 100
[2016-12-08 05:57] LABS: BAND NEUTROPHILE 2 % (0-10); EOSINOPHIL 1 % (0-5); LYMPHOCYTE 15 % (20-50); MONOCYTE 4 % (2-10); PLATELET ESTIMATE SLIGHT DECREASED (NORMAL)
[2016-12-08] MEDS: INSULIN ASPART SLIDING SCALE 100 UNITS/ML UNIT SUBQ SCH ×4 (07:03→21:04)
--- NOTE | 2016-12-08 08:07 | General Progress Note ---
Subjective - Review of Systems Service Date: 12/08/16 Events since last encounter: on SIMV labs Hb 7.6 gm will give 1 prbc to enhance healing Objective - Results Result Diagrams: 12/08/16 04:23 12/08/16 04:23 Recent Labs: Laboratory Last Values WBC 10.7 Th/cmm (4.8-10.8) 12/08/16 04:23 Corrected WBC (auto) 8.8 Th/cmm (4.8-10.8) 12/01/16 18:25 RBC 2.65 Mil/cmm (3.80-5.20) L 12/08/16 04:23 Hgb 7.6 gm/dL (12-16) L* D 12/08/16 04:23 Hct 23.0 % (41.0-60) L D 12/08/16 04:23 MCV 87.0 fl (81-100) 12/08/16 04:23 MCH 28.9 pg (27.0-31.0) 12/08/16 04:23 MCHC Differential 33.2 pg (28.0-36.0) 12/08/16 04:23 RDW 19.3 % (11.5-20.0) 12/08/16 04:23 Plt Count 87 Th/cmm (150-400) L 12/08/16 04:23 MPV 13.4 fl 12/08/16 04:23 Neutrophils % 83.1 % (40.0-80.0) H 12/07/16 04:25 Band Neutrophils % 2 % (0-10) 12/08/16 04:23 Lymphocytes % 10.5 % (20.0-50.0) L 12/07/16 04:25 Monocytes % 4.7 % (2.0-10.0) 12/07/16 04:25 Eosinophils % 1.7 % (0.0-5.0) 12/07/16 04:25 Basophils % 0.0 % (0.0-2.0) 12/07/16 04:25 Neutrophils (Manual) 78 % (40-80) 12/08/16 04:23 Lymphocytes 15 % (20-50) L 12/08/16 04:23 Monocytes 4 % (2-10) 12/08/16 04:23 Eosinophils 1 % (0-5) 12/08/16 04:23 Nucleated RBCs 5.0 % (0-0) H 12/01/16 18:25 Atypical Lymphocytes 1 % 12/01/16 18:25 Platelet Estimate SLIGHT DECREASED (NORMAL) 12/08/16 04:23 Platelet Morphology NORMAL (NORMAL) 12/01/16 18:25 Anisocytosis 2+ 12/03/16 05:35 RBC Morph Micro Appear ABNORMAL (NORMAL) 12/01/16 18:25 Eos Smear Source URINE 12/03/16 06:30 Eos Smear Total Cells NONE SEEN (NONE SEEN) 12/03/16 06:30 PT 11.2 SECONDS (9.5-11.5) 12/03/16 05:35 INR 1.08 (0.5-1.4) 12/03/16 05:35 PTT (Actin FS) 19.6 SECONDS (26.0-38.0) L 12/01/16 18:25 Specimen Source Arterial 12/07/16 09:35 Sample Site LB 12/07/16 09:35 pH 7.38 (7.35-7.45) 12/07/16 09:35 pCO2 23.0 mmHg (35.0-45.0) L* 12/07/16 09:35 pO2 130.0 mmHg (80.0-100.0) H 12/07/16 09:35 HCO3 17.4 mEq/L (20.0-26.0) L 12/07/16 09:35 Base Excess -9.7 mEq/L (-3.0-3.0) L 12/07/16 09:35 O2 Saturation 99.0 % (92.0-100.0) 12/07/16 09:35 Isidro Test NA 12/07/16 09:35 Vent Rate 6 12/07/16 09:35 Inspired O2 30 12/07/16 09:35 Tidal Volume 450 12/07/16 09:35 PEEP 5 12/07/16 09:35 Pressure (ins/psv/peep) 10 12/07/16 09:35 Critical Value E.ZUNIGA 12/07/16 09:35 Sodium 146 mEq/L (136-145) H 12/08/16 04:23 Potassium 3.7 mEq/L (3.5-5.1) 12/08/16 04:23 Chloride 120 mEq/L (98-107) H 12/08/16 04:23 Carbon Dioxide 17.2 mEq/L (21.0-31.0) L 12/08/16 04:23 Anion Gap 12.5 (7.0-16.0) 12/08/16 04:23 BUN 69 mg/dL (7-25) H 12/08/16 04:23 Creatinine 2.7 mg/dL (0.6-1.2) H 12/08/16 04:23 Est GFR ( Amer) TNP 12/08/16 04:23 Est GFR (Non-Af Amer) TNP 12/08/16 04:23 BUN/Creatinine Ratio 25.6 12/08/16 04:23 Glucose 198 mg/dL (70-105) H 12/08/16 04:23 POC Glucose 216 MG/DL (70 - 105) H 12/08/16 06:55 Hemoglobin A1c % 9.0 % (4.0-6.0) H 12/01/16 18:25 Whole Bld Lactic Acid 2.84 mmol/L (0.60-1.99) H* 12/05/16 12:05 Uric Acid 11.6 mg/dL (2.3-6.6) H 12/03/16 05:35 Calcium 8.0 mg/dL (8.6-10.3) L 12/08/16 04:23 Magnesium 2.7 mg/dL (1.9-2.7) 12/03/16 05:35 Total Bilirubin 0.5 mg/dL (0.3-1.0) 12/08/16 04:23 AST 15 U/L (13-39) 12/08/16 04:23 ALT 6 U/L (7-52) L 12/08/16 04:23 Alkaline Phosphatase 280 U/L (34-104) H 12/08/16 04:23 Total Protein 4.0 gm/dL (6.0-8.3) L 12/08/16 04:23 Albumin 1.7 gm/dL (3.7-5.3) L 12/08/16 04:23 Globulin 2.3 gm/dL 12/08/16 04:23 Albumin/Globulin Ratio 0.7 (1.0-1.8) L 12/08/16 04:23 TSH 2.49 uIU/ml (0.34-5.60) 12/03/16 05:35 Urine Source SOTO PORT 12/02/16 14:56 Urine Color YELLOW 12/02/16 14:56 Urine Clarity HAZY (CLEAR) 12/02/16 14:56 Urine pH 8.0 (4.6 - 8.0) 12/02/16 14:56 Ur Specific Gregory 1.015 (1.005-1.030) 12/02/16 14:56 Urine Protein 100 mg/dL (NEGATIVE) H 12/02/16 14:56 Urine Glucose (UA) 500 mg/dL (NEGATIVE) H 12/02/16 14:56 Urine Ketones NEGATIVE mg/dL (NEGATIVE) 12/02/16 14:56 Urine Blood MODERATE (NEGATIVE) H 12/02/16 14:56 Urine Nitrate POSITIVE (NEGATIVE) H 12/02/16 14:56 Urine Bilirubin NEGATIVE (NEGATIVE) 12/02/16 14:56 Urine Urobilinogen 0.2 E.U./dL (0.2 - 1.0) 12/02/16 14:56 Ur Leukocyte Esterase MODERATE (NEGATIVE) H 12/02/16 14:56 Urine RBC 5-10 /hpf (0-5) H 12/02/16 14:56 Urine WBC 50-100 /hpf (0-5) H 12/02/16 14:56 Ur Epithelial Cells FEW /lpf (FEW) 12/02/16 14:56 Triple Phos Crystals MODERATE /hpf (FEW) 12/02/16 14:56 Urine Bacteria MANY /hpf (NONE SEEN) 12/02/16 14:56 Urine Osmolality 488 mOsmol/kg 12/03/16 06:30 Ur Random Sodium 75 mmol/L 12/03/16 06:30 Urine Creatinine 49.0 mg/dl (28.0-217.0) 12/03/16 06:30 Blood Type O POSITIVE 12/02/16 05:05 Antibody Screen NEGATIVE 12/02/16 05:05 Crossmatch See Detail 12/02/16 05:05 - Physical Exam Vitals and I&O: Vital Signs Temp 98.6 F 12/08/16 04:00 Pulse 107 12/08/16 07:00 Resp 16 12/08/16 07:00 BP 117/59 12/08/16 07:00 Pulse Ox 100 12/08/16 07:00 Intake & Output 12/07/16 12/08/16 12/08/16 18:59 06:59 18:59 Intake Total 820 960 Output Total 670 650 Balance 150 310 Weight (lbs) 53.524 kg 55.656 kg Intake: Intake, IV Amount 250 200 Piperacillin Sodium/ 50 100 Tazobact 2.25 gm In Dextrose 5% 50 ml @ 100 mls/hr IV Q8H [facility] Rx#: [id number] metroNIDAZOLE 500mg/NS 200 100 100mL 500 mg In Premix Fluid 1 bag @ 100 mls/hr IV Q8H [facility] Rx#:[id number] Tube Feeding 450 660 Other 120 100 Output: Urine 650 550 Stool 20 100 Active Medications: Current Medications Acetaminophen (Tylenol) 650 mg PO Q6H PRN PRN Reason: Mild Pain or Fever >101 Stop: 01/31/17 11:18 Albuterol/Ipratropium (Duoneb Neb) 3 ml HHN Q6HRT [facility] Stop: 02/04/17 12:59 Last Admin: 12/08/16 00:14 Dose: 3 ml Albuterol/Ipratropium (Duoneb Neb) 3 ml HHN Q2HRT PRN PRN Reason: Wheezing Stop: 02/04/17 10:02 Last Admin: 12/06/16 10:23 Dose: 3 ml Bisacodyl (Dulcolax 5 Mg Ec Tab) 10 mg PO BID [facility] Stop: 01/31/17 16:59 Last Admin: 12/07/16 16:53 Dose: 10 mg Chlorhexidine Gluconate (Peridex) 15 ml MM 0800,1999 [facility] Stop: 02/03/17 19:59 Last Admin: 12/07/16 20:33 Dose: 15 ml Epoetin Esequiel (Epogen) 10,000 units SUBQ TuThSa [facility] Stop: 02/01/17 14:29 Last Admin: 12/06/16 17:01 Dose: 10,000 units Hydromorphone HCl (Dilaudid) 1 mg IVP Q6HR PRN PRN Reason: Pain (Moderate-Severe) Stop: 02/04/17 08:11 Last Admin: 12/08/16 02:17 Dose: 1 mg Piperacillin Sod/Tazobactam (Sod 2.25 gm/ Dextrose) 50 mls @ 100 mls/hr IV Q8H BRIELLE Stop: 02/03/17 10:59 Last Infusion: 12/08/16 04:05 Dose: Infused Metronidazole 500 mg/ (Miscellaneous) 100 mls @ 100 mls/hr IV Q8H BRIELLE Stop: 02/03/17 09:59 Last Infusion: 12/08/16 03:20 Dose: Infused Dextrose (D5w) 1,000 mls @ 50 mls/hr IV .Q20H [facility] Stop: 02/05/17 11:25 Last Admin: 12/07/16 13:56 Dose: 50 mls/hr Insulin Aspart (Novolog Insulin Sliding Scale) 0 units SUBQ ACHS BRIELLE PRN Reason: Protocol Stop: 01/31/17 07:29 Last Admin: 12/08/16 07:03 Dose: 5 units Insulin Detemir (Levemir Insulin) 10 units SUBQ HS BRIELLE PRN Reason: Protocol Stop: 02/03/17 20:59 Last Admin: 12/07/16 20:35 Dose: 10 unit Lorazepam (Ativan) 1 mg IVP Q8HR PRN; Protocol PRN Reason: AGITATION Stop: 02/04/17 19:42 Last Admin: 12/06/16 21:16 Dose: 1 mg Miscellaneous (Vte Chemical Prophylaxis Screen/ Admission) 1 ea MC PRN PRN PRN Reason: PROTOCOL Stop: 01/31/17 13:38 Miscellaneous (Clinical Monitoring) 1 ea MC DAILY PRN PRN Reason: RENAL Stop: 02/04/17 08:05 Pantoprazole Sodium (Protonix) 40 mg IVP DAILY BRIELLE Stop: 02/01/17 08:59 Last Admin: 12/07/16 08:47 Dose: 40 mg Potassium Chloride (Potassium Chloride Elixir) 20 meq GT DAILY BRIELLE Stop: 02/05/17 09:14 Last Admin: 12/07/16 10:01 Dose: 20 meq Sodium Bicarbonate (Sodium Bicarbonate) 650 mg GT TID BRIELLE PRN Reason: Protocol Stop: 02/05/17 20:59 Last Admin: 12/07/16 21:30 Dose: 650 mg General: No acute distress, Other (Patient is awake, restless trying to take off tubes.) HEENT: Atraumatic Neck: Supple Cardiovascular: Regular rate Lungs: Clear to auscultation, Other (few rhonchi) Abdomen: Bowel sounds, Soft, Other (PEG in place, Colostomy in place) Extremities: Other (No edema), no Edema Neurological: Sensation intact, Other (Non ambulatory) Skin: no Significant lesion Psych/Mental Status: Mood NL, Other (Awake, alert, restless, intubated) - Procedures Procedures: Procedures Procedure Code Date BYPASS DESCENDING COLON TO CUTANEOUS, OPEN APPROACH [id number] 12/02/16 COLOSTOMY 78425 12/02/16 CHAGO BONE 20 SQ CM/< [id number] 12/02/16 CHAGO MUSC/FASCIA 20 SQ CM/< [id number] 10/24/16 CHAGO SUBQ TISSUE 20 SQ CM/< [id number] 12/02/16 EXCISION OF L FOOT SUBCU/FASCIA, OPEN APPROACH [id number] 12/02/16 EXCISION OF LEFT HIP MUSCLE, OPEN APPROACH [id number] 10/24/16 EXCISION OF LEFT PELVIC BONE, OPEN APPROACH [id number] 12/02/16 EXCISION OF R FOOT SUBCU/FASCIA, OPEN APPROACH [id number] 12/02/16 RESPIRATORY VENTILATION, 24-96 CONSECUTIVE HOURS [id number] 12/02/16 Assessment/Plan - Problem List Patient Problems: All Active Problems POOR ORAL INTAKE AND SWALLOWING (Acute) SACRAL AND BILATERAL BUTTOCK SKIN ULCERS (Acute) Nutritional Asmnt/Malnutr-PDOC - Dietary Evaluation Malnutrition Findings (Please click <Entered> for more info): Nutritional Asmnt/Malnutrition Start: 12/02/16 14: 44 Text: Status: Complete Freq: Document 12/02/16 14:44 GSUN (Rec: 12/02/16 15:19 GSUN [place] [id number]) Nutritional Asmnt/Malnutrition Patient General Information Nutritional Screening Consult Diagnosis AKF, sacral decubitus ulcer stage IV, HTN, DM, dementia, chronic anemia Pertinent Medical Hx/Surgical Hx CAD, CVA, dementia, psychosis, muscle atrophy, AKF, DM, decubitus ulcer stage IV Subjective Information 81 year old female from SNF. RD consult for low Elliot and elevated blood glucose. Pt was awake, unable to provide nutrition hx. Family at bedside, spoke to family and HAI Pimentel regarding nutrition plan of care, PEG placement consent obtained. Family has no other questions at this time. Elevated BUN, [employer], K, family reported pt is not on dialysis, "possible HD today" per H&P. Per nursing adm notes , 4-5lb wt loss in 2 weeks. Per family, unaware of UBW, aware of recent wt loss, stated pt stopped eating ~3-4 days ago. Loose skin, moderate to severe muslce fat wasting to chest and clavicles. Current Diet Order/ Nutrition Support NPO Pertinent Medications Dulcolax, D5-0.45ns, Novolog Pertinent Labs 12/01: A1c 9H 12/02: sodium 173H, potassium 5.3H, BUN 169H, creatinie 5.8H , glucose 238H, calcium 10.8H Nutritional Hx/Data Height 1.52 m Height (Calculated Centimeters) 152.4 Current Weight (lbs) 43.545 kg Weight (Calculated Kilograms) 43.5 Weight (Calculated Grams) 35785.9 Caroline Body Weight 100 Recent Weight Change Yes Weight Status Approriate GI Symptoms Usual diet at home [facility]: pureed, [facility] Skin Integrity/Comment: Elliot 11. Sacral decubitus ulcer stage IV. Estimated Nutritional Goals Calories/Kcals/Kg IBW 100lb/45.5kg Kcals Calculated 1365-1593kcal (30-35kcal/kg) Protein Calculated 68-73g (1.4-1.6g/kg, ulcer vs renal, ?HD) Fluid: ml Per MD Nutritional Problem 3. Problem Problem Altered nutrition related laboratory values related to Etiology DM aeb Signs/Symptoms: A1c 9H, glucose 238H 2. Problem Problem Increased kcal and prot needs related to Etiology skin integrity, recent weight loss aeb Signs/Symptoms: Sacral decubitus ulcer stage IV, wt loss 4-5lb in 2 weeks per nursing adm notes, moderate to seevre muslce/fat wasting to chest and clavicles 1. Problem Problem Impaired nutrient utilization related to Etiology acute kidney injury aeb Signs/Symptoms: potassium 5.3H, BUN 169H, creatinie 5.8H, calcium 10.8H Intervention/Recommendation Comments 1. Discussed enteral nutrition with family. Family has no further questions at this time . 2. When medically feasible to initiate feeding, recommend Novasource Renal at 30ml/hr x 24hrs, providing 720ml total volume, 1440kcal, 65g protein. Initiate at 10ml/hr for first 24 hrs, monitor for refeeding syndrome and tolerance, increase by 5ml/hr q12hrs until goal. 3. Recommend 1 packet Arginaid daily via tube for wound healing. 4. Monitor weight closely. Hx 4-5lb wt loss in 2 weeks per nursing adm note. Expected Outcomes/Goals Expected Outcomes/Goals 1. Pt to meet at least 75% of estimated nutritinoal eneds on tube feeding with tolerance.
--- NOTE | 2016-12-08 08:07 | General Progress Note ---
Subjective - Review of Systems Service Date: 12/08/16 Events since last encounter: on SIMV labs Hb 7.6 gm will give 1 prbc to enhance healing Objective - Results Result Diagrams: 12/08/16 04:23 12/08/16 04:23 Recent Labs: Laboratory Last Values WBC 10.7 Th/cmm (4.8-10.8) 12/08/16 04:23 Corrected WBC (auto) 8.8 Th/cmm (4.8-10.8) 12/01/16 18:25 RBC 2.65 Mil/cmm (3.80-5.20) L 12/08/16 04:23 Hgb 7.6 gm/dL (12-16) L* D 12/08/16 04:23 Hct 23.0 % (41.0-60) L D 12/08/16 04:23 MCV 87.0 fl (81-100) 12/08/16 04:23 MCH 28.9 pg (27.0-31.0) 12/08/16 04:23 MCHC Differential 33.2 pg (28.0-36.0) 12/08/16 04:23 RDW 19.3 % (11.5-20.0) 12/08/16 04:23 Plt Count 87 Th/cmm (150-400) L 12/08/16 04:23 MPV 13.4 fl 12/08/16 04:23 Neutrophils % 83.1 % (40.0-80.0) H 12/07/16 04:25 Band Neutrophils % 2 % (0-10) 12/08/16 04:23 Lymphocytes % 10.5 % (20.0-50.0) L 12/07/16 04:25 Monocytes % 4.7 % (2.0-10.0) 12/07/16 04:25 Eosinophils % 1.7 % (0.0-5.0) 12/07/16 04:25 Basophils % 0.0 % (0.0-2.0) 12/07/16 04:25 Neutrophils (Manual) 78 % (40-80) 12/08/16 04:23 Lymphocytes 15 % (20-50) L 12/08/16 04:23 Monocytes 4 % (2-10) 12/08/16 04:23 Eosinophils 1 % (0-5) 12/08/16 04:23 Nucleated RBCs 5.0 % (0-0) H 12/01/16 18:25 Atypical Lymphocytes 1 % 12/01/16 18:25 Platelet Estimate SLIGHT DECREASED (NORMAL) 12/08/16 04:23 Platelet Morphology NORMAL (NORMAL) 12/01/16 18:25 Anisocytosis 2+ 12/03/16 05:35 RBC Morph Micro Appear ABNORMAL (NORMAL) 12/01/16 18:25 Eos Smear Source URINE 12/03/16 06:30 Eos Smear Total Cells NONE SEEN (NONE SEEN) 12/03/16 06:30 PT 11.2 SECONDS (9.5-11.5) 12/03/16 05:35 INR 1.08 (0.5-1.4) 12/03/16 05:35 PTT (Actin FS) 19.6 SECONDS (26.0-38.0) L 12/01/16 18:25 Specimen Source Arterial 12/07/16 09:35 Sample Site LB 12/07/16 09:35 pH 7.38 (7.35-7.45) 12/07/16 09:35 pCO2 23.0 mmHg (35.0-45.0) L* 12/07/16 09:35 pO2 130.0 mmHg (80.0-100.0) H 12/07/16 09:35 HCO3 17.4 mEq/L (20.0-26.0) L 12/07/16 09:35 Base Excess -9.7 mEq/L (-3.0-3.0) L 12/07/16 09:35 O2 Saturation 99.0 % (92.0-100.0) 12/07/16 09:35 Isidro Test NA 12/07/16 09:35 Vent Rate 6 12/07/16 09:35 Inspired O2 30 12/07/16 09:35 Tidal Volume 450 12/07/16 09:35 PEEP 5 12/07/16 09:35 Pressure (ins/psv/peep) 10 12/07/16 09:35 Critical Value E.ZUNIGA 12/07/16 09:35 Sodium 146 mEq/L (136-145) H 12/08/16 04:23 Potassium 3.7 mEq/L (3.5-5.1) 12/08/16 04:23 Chloride 120 mEq/L (98-107) H 12/08/16 04:23 Carbon Dioxide 17.2 mEq/L (21.0-31.0) L 12/08/16 04:23 Anion Gap 12.5 (7.0-16.0) 12/08/16 04:23 BUN 69 mg/dL (7-25) H 12/08/16 04:23 Creatinine 2.7 mg/dL (0.6-1.2) H 12/08/16 04:23 Est GFR ( Amer) TNP 12/08/16 04:23 Est GFR (Non-Af Amer) TNP 12/08/16 04:23 BUN/Creatinine Ratio 25.6 12/08/16 04:23 Glucose 198 mg/dL (70-105) H 12/08/16 04:23 POC Glucose 216 MG/DL (70 - 105) H 12/08/16 06:55 Hemoglobin A1c % 9.0 % (4.0-6.0) H 12/01/16 18:25 Whole Bld Lactic Acid 2.84 mmol/L (0.60-1.99) H* 12/05/16 12:05 Uric Acid 11.6 mg/dL (2.3-6.6) H 12/03/16 05:35 Calcium 8.0 mg/dL (8.6-10.3) L 12/08/16 04:23 Magnesium 2.7 mg/dL (1.9-2.7) 12/03/16 05:35 Total Bilirubin 0.5 mg/dL (0.3-1.0) 12/08/16 04:23 AST 15 U/L (13-39) 12/08/16 04:23 ALT 6 U/L (7-52) L 12/08/16 04:23 Alkaline Phosphatase 280 U/L (34-104) H 12/08/16 04:23 Total Protein 4.0 gm/dL (6.0-8.3) L 12/08/16 04:23 Albumin 1.7 gm/dL (3.7-5.3) L 12/08/16 04:23 Globulin 2.3 gm/dL 12/08/16 04:23 Albumin/Globulin Ratio 0.7 (1.0-1.8) L 12/08/16 04:23 TSH 2.49 uIU/ml (0.34-5.60) 12/03/16 05:35 Urine Source SOTO PORT 12/02/16 14:56 Urine Color YELLOW 12/02/16 14:56 Urine Clarity HAZY (CLEAR) 12/02/16 14:56 Urine pH 8.0 (4.6 - 8.0) 12/02/16 14:56 Ur Specific [place] 1.015 (1.005-1.030) 12/02/16 14:56 Urine Protein 100 mg/dL (NEGATIVE) H 12/02/16 14:56 Urine Glucose (UA) 500 mg/dL (NEGATIVE) H 12/02/16 14:56 Urine Ketones NEGATIVE mg/dL (NEGATIVE) 12/02/16 14:56 Urine Blood MODERATE (NEGATIVE) H 12/02/16 14:56 Urine Nitrate POSITIVE (NEGATIVE) H 12/02/16 14:56 Urine Bilirubin NEGATIVE (NEGATIVE) 12/02/16 14:56 Urine Urobilinogen 0.2 E.U./dL (0.2 - 1.0) 12/02/16 14:56 Ur Leukocyte Esterase MODERATE (NEGATIVE) H 12/02/16 14:56 Urine RBC 5-10 /hpf (0-5) H 12/02/16 14:56 Urine WBC 50-100 /hpf (0-5) H 12/02/16 14:56 Ur Epithelial Cells FEW /lpf (FEW) 12/02/16 14:56 Triple Phos Crystals MODERATE /hpf (FEW) 12/02/16 14:56 Urine Bacteria MANY /hpf (NONE SEEN) 12/02/16 14:56 Urine Osmolality 488 mOsmol/kg 12/03/16 06:30 Ur Random Sodium 75 mmol/L 12/03/16 06:30 Urine Creatinine 49.0 mg/dl (28.0-217.0) 12/03/16 06:30 Blood Type O POSITIVE 12/02/16 05:05 Antibody Screen NEGATIVE 12/02/16 05:05 Crossmatch See Detail 12/02/16 05:05 - Physical Exam Vitals and I&O: Vital Signs Temp 98.6 F 12/08/16 04:00 Pulse 107 12/08/16 07:00 Resp 16 12/08/16 07:00 BP 117/59 12/08/16 07:00 Pulse Ox 100 12/08/16 07:00 Intake & Output 12/07/16 12/08/16 12/08/16 18:59 06:59 18:59 Intake Total 820 960 Output Total 670 650 Balance 150 310 Weight (lbs) 53.524 kg 55.656 kg Intake: Intake, IV Amount 250 200 Piperacillin Sodium/ 50 100 Tazobact 2.25 gm In Dextrose 5% 50 ml @ 100 mls/hr IV Q8H [facility] Rx#: [id number] metroNIDAZOLE 500mg/NS 200 100 100mL 500 mg In Premix Fluid 1 bag @ 100 mls/hr IV Q8H [facility] Rx#:[id number] Tube Feeding 450 660 Other 120 100 Output: Urine 650 550 Stool 20 100 Active Medications: Current Medications Acetaminophen (Tylenol) 650 mg PO Q6H PRN PRN Reason: Mild Pain or Fever >101 Stop: 01/31/17 11:18 Albuterol/Ipratropium (Duoneb Neb) 3 ml HHN Q6HRT [facility] Stop: 02/04/17 12:59 Last Admin: 12/08/16 00:14 Dose: 3 ml Albuterol/Ipratropium (Duoneb Neb) 3 ml HHN Q2HRT PRN PRN Reason: Wheezing Stop: 02/04/17 10:02 Last Admin: 12/06/16 10:23 Dose: 3 ml Bisacodyl (Dulcolax 5 Mg Ec Tab) 10 mg PO BID [facility] Stop: 01/31/17 16:59 Last Admin: 12/07/16 16:53 Dose: 10 mg Chlorhexidine Gluconate (Peridex) 15 ml MM 0800,1999 [facility] Stop: 02/03/17 19:59 Last Admin: 12/07/16 20:33 Dose: 15 ml Epoetin Esequiel (Epogen) 10,000 units SUBQ TuThSa [facility] Stop: 02/01/17 14:29 Last Admin: 12/06/16 17:01 Dose: 10,000 units Hydromorphone HCl (Dilaudid) 1 mg IVP Q6HR PRN PRN Reason: Pain (Moderate-Severe) Stop: 02/04/17 08:11 Last Admin: 12/08/16 02:17 Dose: 1 mg Piperacillin Sod/Tazobactam (Sod 2.25 gm/ Dextrose) 50 mls @ 100 mls/hr IV Q8H [facility] Stop: 02/03/17 10:59 Last Infusion: 12/08/16 04:05 Dose: Infused Metronidazole 500 mg/ (Miscellaneous) 100 mls @ 100 mls/hr IV Q8H [facility] Stop: 02/03/17 09:59 Last Infusion: 12/08/16 03:20 Dose: Infused Dextrose (D5w) 1,000 mls @ 50 mls/hr IV .Q20H [facility] Stop: 02/05/17 11:25 Last Admin: 12/07/16 13:56 Dose: 50 mls/hr Insulin Aspart (Novolog Insulin Sliding Scale) 0 units SUBQ ACHS [facility] PRN Reason: Protocol Stop: 01/31/17 07:29 Last Admin: 12/08/16 07:03 Dose: 5 units Insulin Detemir (Levemir Insulin) 10 units SUBQ HS [facility] PRN Reason: Protocol Stop: 02/03/17 20:59 Last Admin: 12/07/16 20:35 Dose: 10 unit Lorazepam (Ativan) 1 mg IVP Q8HR PRN; Protocol PRN Reason: AGITATION Stop: 02/04/17 19:42 Last Admin: 12/06/16 21:16 Dose: 1 mg Miscellaneous (Vte Chemical Prophylaxis Screen/ Admission) 1 ea MC PRN PRN PRN Reason: PROTOCOL Stop: 01/31/17 13:38 Miscellaneous (Clinical Monitoring) 1 ea MC DAILY PRN PRN Reason: RENAL Stop: 02/04/17 08:05 Pantoprazole Sodium (Protonix) 40 mg IVP DAILY [facility] Stop: 02/01/17 08:59 Last Admin: 12/07/16 08:47 Dose: 40 mg Potassium Chloride (Potassium Chloride Elixir) 20 meq GT DAILY [facility] Stop: 02/05/17 09:14 Last Admin: 12/07/16 10:01 Dose: 20 meq Sodium Bicarbonate (Sodium Bicarbonate) 650 mg GT TID [facility] PRN Reason: Protocol Stop: 02/05/17 20:59 Last Admin: 12/07/16 21:30 Dose: 650 mg General: No acute distress, Other (Patient is awake, restless trying to take off tubes.) HEENT: Atraumatic Neck: Supple Cardiovascular: Regular rate Lungs: Clear to auscultation, Other (few rhonchi) Abdomen: Bowel sounds, Soft, Other (PEG in place, Colostomy in place) Extremities: Other (No edema), no Edema Neurological: Sensation intact, Other (Non ambulatory) Skin: no Significant lesion Psych/Mental Status: Mood NL, Other (Awake, alert, restless, intubated) - Procedures Procedures: Procedures Procedure Code Date BYPASS DESCENDING COLON TO CUTANEOUS, OPEN APPROACH [id number] 12/02/16 COLOSTOMY 75498 12/02/16 CHAGO BONE 20 SQ CM/< [id number] 12/02/16 CHAGO MUSC/FASCIA 20 SQ CM/< [id number] 10/24/16 CHAGO SUBQ TISSUE 20 SQ CM/< [id number] 12/02/16 EXCISION OF L FOOT SUBCU/FASCIA, OPEN APPROACH [id number] 12/02/16 EXCISION OF LEFT HIP MUSCLE, OPEN APPROACH [id number] 10/24/16 EXCISION OF LEFT PELVIC BONE, OPEN APPROACH [id number] 12/02/16 EXCISION OF R FOOT SUBCU/FASCIA, OPEN APPROACH [id number] 12/02/16 RESPIRATORY VENTILATION, 24-96 CONSECUTIVE HOURS [id number] 12/02/16 Assessment/Plan - Problem List Patient Problems: All Active Problems POOR ORAL INTAKE AND SWALLOWING (Acute) SACRAL AND BILATERAL BUTTOCK SKIN ULCERS (Acute) Nutritional Asmnt/Malnutr-PDOC - Dietary Evaluation Malnutrition Findings (Please click <Entered> for more info): Nutritional Asmnt/Malnutrition Start: 12/02/16 14: 44 Text: Status: Complete Freq: Document 12/02/16 14:44 GSUN (Rec: 12/02/16 15:19 GSUN [place] [id number]) Nutritional Asmnt/Malnutrition Patient General Information Nutritional Screening Consult Diagnosis AKF, sacral decubitus ulcer stage IV, HTN, DM, dementia, chronic anemia Pertinent Medical Hx/Surgical Hx CAD, CVA, dementia, psychosis, muscle atrophy, AKF, DM, decubitus ulcer stage IV Subjective Information 81 year old female from SNF. RD consult for low Elliot and elevated blood glucose. Pt was awake, unable to provide nutrition hx. Family at bedside, spoke to family and HAI Pimentel regarding nutrition plan of care, PEG placement consent obtained. Family has no other questions at this time. 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 Per nursing adm notes , 4-5lb wt loss in 2 weeks. Per family, unaware of UBW, aware of recent wt loss, stated pt stopped eating ~3-4 days ago. Loose skin, moderate to severe muslce fat wasting to chest and clavicles. Current Diet Order/ Nutrition Support NPO Pertinent Medications Dulcolax, D5-0.45ns, Novolog Pertinent Labs 12/01: A1c 9H 12/02: sodium 173H, potassium 5.3H, BUN 169H, creatinie 5.8H , glucose 238H, calcium 10.8H Nutritional Hx/Data Height 1.52 m Height (Calculated Centimeters) 152.4 Current Weight (lbs) 43.545 kg Weight (Calculated Kilograms) 43.5 Weight (Calculated Grams) 41216.9 [place] Body Weight 100 Recent Weight Change Yes Weight Status Approriate GI Symptoms Usual diet at home [facility]: pureed, [facility] Skin Integrity/Comment: Elliot 11. Sacral decubitus ulcer stage IV. Estimated Nutritional Goals Calories/Kcals/Kg IBW 100lb/45.5kg Kcals Calculated 1365-1593kcal (30-35kcal/kg) Protein Calculated 68-73g (1.4-1.6g/kg, ulcer vs renal, ?HD) Fluid: ml Per MD Nutritional Problem 3. Problem Problem Altered nutrition related laboratory values related to Etiology DM aeb Signs/Symptoms: A1c 9H, glucose 238H 2. Problem Problem Increased kcal and prot needs related to Etiology skin integrity, recent weight loss aeb Signs/Symptoms: Sacral decubitus ulcer stage IV, wt loss 4-5lb in 2 weeks per nursing adm notes, moderate to seevre muslce/fat wasting to chest and clavicles 1. Problem Problem Impaired nutrient utilization related to Etiology acute kidney injury aeb Signs/Symptoms: potassium 5.3H, BUN 169H, creatinie 5.8H, calcium 10.8H Intervention/Recommendation Comments 1. Discussed enteral nutrition with family. Family has no further questions at this time . 2. When medically feasible to initiate feeding, recommend Novasource Renal at 30ml/hr x 24hrs, providing 720ml total volume, 1440kcal, 65g protein. Initiate at 10ml/hr for first 24 hrs, monitor for refeeding syndrome and tolerance, increase by 5ml/hr q12hrs until goal. 3. Recommend 1 packet Arginaid daily via tube for wound healing. 4. Monitor weight closely. Hx 4-5lb wt loss in 2 weeks per nursing adm note. Expected Outcomes/Goals Expected Outcomes/Goals 1. Pt to meet at least 75% of estimated nutritinoal eneds on tube feeding with tolerance.
--- NOTE | 2016-12-08 08:07 | General Progress Note ---
Subjective - Review of Systems Service Date: 12/08/16 Events since last encounter: on SIMV labs Hb 7.6 gm will give 1 prbc to enhance healing Objective - Results Result Diagrams: 12/08/16 04:23 12/08/16 04:23 Recent Labs: Laboratory Last Values WBC 10.7 Th/cmm (4.8-10.8) 12/08/16 04:23 Corrected WBC (auto) 8.8 Th/cmm (4.8-10.8) 12/01/16 18:25 RBC 2.65 Mil/cmm (3.80-5.20) L 12/08/16 04:23 Hgb 7.6 gm/dL (12-16) L* D 12/08/16 04:23 Hct 23.0 % (41.0-60) L D 12/08/16 04:23 MCV 87.0 fl (81-100) 12/08/16 04:23 MCH 28.9 pg (27.0-31.0) 12/08/16 04:23 MCHC Differential 33.2 pg (28.0-36.0) 12/08/16 04:23 RDW 19.3 % (11.5-20.0) 12/08/16 04:23 Plt Count 87 Th/cmm (150-400) L 12/08/16 04:23 MPV 13.4 fl 12/08/16 04:23 Neutrophils % 83.1 % (40.0-80.0) H 12/07/16 04:25 Band Neutrophils % 2 % (0-10) 12/08/16 04:23 Lymphocytes % 10.5 % (20.0-50.0) L 12/07/16 04:25 Monocytes % 4.7 % (2.0-10.0) 12/07/16 04:25 Eosinophils % 1.7 % (0.0-5.0) 12/07/16 04:25 Basophils % 0.0 % (0.0-2.0) 12/07/16 04:25 Neutrophils (Manual) 78 % (40-80) 12/08/16 04:23 Lymphocytes 15 % (20-50) L 12/08/16 04:23 Monocytes 4 % (2-10) 12/08/16 04:23 Eosinophils 1 % (0-5) 12/08/16 04:23 Nucleated RBCs 5.0 % (0-0) H 12/01/16 18:25 Atypical Lymphocytes 1 % 12/01/16 18:25 Platelet Estimate SLIGHT DECREASED (NORMAL) 12/08/16 04:23 Platelet Morphology NORMAL (NORMAL) 12/01/16 18:25 Anisocytosis 2+ 12/03/16 05:35 RBC Morph Micro Appear ABNORMAL (NORMAL) 12/01/16 18:25 Eos Smear Source URINE 12/03/16 06:30 Eos Smear Total Cells NONE SEEN (NONE SEEN) 12/03/16 06:30 PT 11.2 SECONDS (9.5-11.5) 12/03/16 05:35 INR 1.08 (0.5-1.4) 12/03/16 05:35 PTT (Actin FS) 19.6 SECONDS (26.0-38.0) L 12/01/16 18:25 Specimen Source Arterial 12/07/16 09:35 Sample Site LB 12/07/16 09:35 pH 7.38 (7.35-7.45) 12/07/16 09:35 pCO2 23.0 mmHg (35.0-45.0) L* 12/07/16 09:35 pO2 130.0 mmHg (80.0-100.0) H 12/07/16 09:35 HCO3 17.4 mEq/L (20.0-26.0) L 12/07/16 09:35 Base Excess -9.7 mEq/L (-3.0-3.0) L 12/07/16 09:35 O2 Saturation 99.0 % (92.0-100.0) 12/07/16 09:35 Isidro Test NA 12/07/16 09:35 Vent Rate 6 12/07/16 09:35 Inspired O2 30 12/07/16 09:35 Tidal Volume 450 12/07/16 09:35 PEEP 5 12/07/16 09:35 Pressure (ins/psv/peep) 10 12/07/16 09:35 Critical Value E.ZUNIGA 12/07/16 09:35 Sodium 146 mEq/L (136-145) H 12/08/16 04:23 Potassium 3.7 mEq/L (3.5-5.1) 12/08/16 04:23 Chloride 120 mEq/L (98-107) H 12/08/16 04:23 Carbon Dioxide 17.2 mEq/L (21.0-31.0) L 12/08/16 04:23 Anion Gap 12.5 (7.0-16.0) 12/08/16 04:23 BUN 69 mg/dL (7-25) H 12/08/16 04:23 Creatinine 2.7 mg/dL (0.6-1.2) H 12/08/16 04:23 Est GFR ( Amer) TNP 12/08/16 04:23 Est GFR (Non-Af Amer) TNP 12/08/16 04:23 BUN/Creatinine Ratio 25.6 12/08/16 04:23 Glucose 198 mg/dL (70-105) H 12/08/16 04:23 POC Glucose 216 MG/DL (70 - 105) H 12/08/16 06:55 Hemoglobin A1c % 9.0 % (4.0-6.0) H 12/01/16 18:25 Whole Bld Lactic Acid 2.84 mmol/L (0.60-1.99) H* 12/05/16 12:05 Uric Acid 11.6 mg/dL (2.3-6.6) H 12/03/16 05:35 Calcium 8.0 mg/dL (8.6-10.3) L 12/08/16 04:23 Magnesium 2.7 mg/dL (1.9-2.7) 12/03/16 05:35 Total Bilirubin 0.5 mg/dL (0.3-1.0) 12/08/16 04:23 AST 15 U/L (13-39) 12/08/16 04:23 ALT 6 U/L (7-52) L 12/08/16 04:23 Alkaline Phosphatase 280 U/L (34-104) H 12/08/16 04:23 Total Protein 4.0 gm/dL (6.0-8.3) L 12/08/16 04:23 Albumin 1.7 gm/dL (3.7-5.3) L 12/08/16 04:23 Globulin 2.3 gm/dL 12/08/16 04:23 Albumin/Globulin Ratio 0.7 (1.0-1.8) L 12/08/16 04:23 TSH 2.49 uIU/ml (0.34-5.60) 12/03/16 05:35 Urine Source SOTO PORT 12/02/16 14:56 Urine Color YELLOW 12/02/16 14:56 Urine Clarity HAZY (CLEAR) 12/02/16 14:56 Urine pH 8.0 (4.6 - 8.0) 12/02/16 14:56 Ur Specific [place] 1.015 (1.005-1.030) 12/02/16 14:56 Urine Protein 100 mg/dL (NEGATIVE) H 12/02/16 14:56 Urine Glucose (UA) 500 mg/dL (NEGATIVE) H 12/02/16 14:56 Urine Ketones NEGATIVE mg/dL (NEGATIVE) 12/02/16 14:56 Urine Blood MODERATE (NEGATIVE) H 12/02/16 14:56 Urine Nitrate POSITIVE (NEGATIVE) H 12/02/16 14:56 Urine Bilirubin NEGATIVE (NEGATIVE) 12/02/16 14:56 Urine Urobilinogen 0.2 E.U./dL (0.2 - 1.0) 12/02/16 14:56 Ur Leukocyte Esterase MODERATE (NEGATIVE) H 12/02/16 14:56 Urine RBC 5-10 /hpf (0-5) H 12/02/16 14:56 Urine WBC 50-100 /hpf (0-5) H 12/02/16 14:56 Ur Epithelial Cells FEW /lpf (FEW) 12/02/16 14:56 Triple Phos Crystals MODERATE /hpf (FEW) 12/02/16 14:56 Urine Bacteria MANY /hpf (NONE SEEN) 12/02/16 14:56 Urine Osmolality 488 mOsmol/kg 12/03/16 06:30 Ur Random Sodium 75 mmol/L 12/03/16 06:30 Urine Creatinine 49.0 mg/dl (28.0-217.0) 12/03/16 06:30 Blood Type O POSITIVE 12/02/16 05:05 Antibody Screen NEGATIVE 12/02/16 05:05 Crossmatch See Detail 12/02/16 05:05 - Physical Exam Vitals and I&O: Vital Signs Temp 98.6 F 12/08/16 04:00 Pulse 107 12/08/16 07:00 Resp 16 12/08/16 07:00 BP 117/59 12/08/16 07:00 Pulse Ox 100 12/08/16 07:00 Intake & Output 12/07/16 12/08/16 12/08/16 18:59 06:59 18:59 Intake Total 820 960 Output Total 670 650 Balance 150 310 Weight (lbs) 53.524 kg 55.656 kg Intake: Intake, IV Amount 250 200 Piperacillin Sodium/ 50 100 Tazobact 2.25 gm In Dextrose 5% 50 ml @ 100 mls/hr IV Q8H [facility] Rx#: [id number] metroNIDAZOLE 500mg/NS 200 100 100mL 500 mg In Premix Fluid 1 bag @ 100 mls/hr IV Q8H [facility] Rx#:[id number] Tube Feeding 450 660 Other 120 100 Output: Urine 650 550 Stool 20 100 Active Medications: Current Medications Acetaminophen (Tylenol) 650 mg PO Q6H PRN PRN Reason: Mild Pain or Fever >101 Stop: 01/31/17 11:18 Albuterol/Ipratropium (Duoneb Neb) 3 ml HHN Q6HRT [facility] Stop: 02/04/17 12:59 Last Admin: 12/08/16 00:14 Dose: 3 ml Albuterol/Ipratropium (Duoneb Neb) 3 ml HHN Q2HRT PRN PRN Reason: Wheezing Stop: 02/04/17 10:02 Last Admin: 12/06/16 10:23 Dose: 3 ml Bisacodyl (Dulcolax 5 Mg Ec Tab) 10 mg PO BID [facility] Stop: 01/31/17 16:59 Last Admin: 12/07/16 16:53 Dose: 10 mg Chlorhexidine Gluconate (Peridex) 15 ml MM 0800,1999 [facility] Stop: 02/03/17 19:59 Last Admin: 12/07/16 20:33 Dose: 15 ml Epoetin Esequiel (Epogen) 10,000 units SUBQ TuThSa [facility] Stop: 02/01/17 14:29 Last Admin: 12/06/16 17:01 Dose: 10,000 units Hydromorphone HCl (Dilaudid) 1 mg IVP Q6HR PRN PRN Reason: Pain (Moderate-Severe) Stop: 02/04/17 08:11 Last Admin: 12/08/16 02:17 Dose: 1 mg Piperacillin Sod/Tazobactam (Sod 2.25 gm/ Dextrose) 50 mls @ 100 mls/hr IV Q8H [facility] Stop: 02/03/17 10:59 Last Infusion: 12/08/16 04:05 Dose: Infused Metronidazole 500 mg/ (Miscellaneous) 100 mls @ 100 mls/hr IV Q8H [facility] Stop: 02/03/17 09:59 Last Infusion: 12/08/16 03:20 Dose: Infused Dextrose (D5w) 1,000 mls @ 50 mls/hr IV .Q20H [facility] Stop: 02/05/17 11:25 Last Admin: 12/07/16 13:56 Dose: 50 mls/hr Insulin Aspart (Novolog Insulin Sliding Scale) 0 units SUBQ ACHS [facility] PRN Reason: Protocol Stop: 01/31/17 07:29 Last Admin: 12/08/16 07:03 Dose: 5 units Insulin Detemir (Levemir Insulin) 10 units SUBQ HS [facility] PRN Reason: Protocol Stop: 02/03/17 20:59 Last Admin: 12/07/16 20:35 Dose: 10 unit Lorazepam (Ativan) 1 mg IVP Q8HR PRN; Protocol PRN Reason: AGITATION Stop: 02/04/17 19:42 Last Admin: 12/06/16 21:16 Dose: 1 mg Miscellaneous (Vte Chemical Prophylaxis Screen/ Admission) 1 ea MC PRN PRN PRN Reason: PROTOCOL Stop: 01/31/17 13:38 Miscellaneous (Clinical Monitoring) 1 ea MC DAILY PRN PRN Reason: RENAL Stop: 02/04/17 08:05 Pantoprazole Sodium (Protonix) 40 mg IVP DAILY [facility] Stop: 02/01/17 08:59 Last Admin: 12/07/16 08:47 Dose: 40 mg Potassium Chloride (Potassium Chloride Elixir) 20 meq GT DAILY [facility] Stop: 02/05/17 09:14 Last Admin: 12/07/16 10:01 Dose: 20 meq Sodium Bicarbonate (Sodium Bicarbonate) 650 mg GT TID [facility] PRN Reason: Protocol Stop: 02/05/17 20:59 Last Admin: 12/07/16 21:30 Dose: 650 mg General: No acute distress, Other (Patient is awake, restless trying to take off tubes.) HEENT: Atraumatic Neck: Supple Cardiovascular: Regular rate Lungs: Clear to auscultation, Other (few rhonchi) Abdomen: Bowel sounds, Soft, Other (PEG in place, Colostomy in place) Extremities: Other (No edema), no Edema Neurological: Sensation intact, Other (Non ambulatory) Skin: no Significant lesion Psych/Mental Status: Mood NL, Other (Awake, alert, restless, intubated) - Procedures Procedures: Procedures Procedure Code Date BYPASS DESCENDING COLON TO CUTANEOUS, OPEN APPROACH [id number] 12/02/16 COLOSTOMY 59882 12/02/16 CHAGO BONE 20 SQ CM/< 75800 12/02/16 CHAGO MUSC/FASCIA 20 SQ CM/< 80180 10/24/16 CHAGO SUBQ TISSUE 20 SQ CM/< 21553 12/02/16 EXCISION OF L FOOT SUBCU/FASCIA, OPEN APPROACH [id number] 12/02/16 EXCISION OF LEFT HIP MUSCLE, OPEN APPROACH [id number] 10/24/16 EXCISION OF LEFT PELVIC BONE, OPEN APPROACH [id number] 12/02/16 EXCISION OF R FOOT SUBCU/FASCIA, OPEN APPROACH [id number] 12/02/16 RESPIRATORY VENTILATION, 24-96 CONSECUTIVE HOURS [id number] 12/02/16 Assessment/Plan - Problem List Patient Problems: All Active Problems POOR ORAL INTAKE AND SWALLOWING (Acute) SACRAL AND BILATERAL BUTTOCK SKIN ULCERS (Acute) Nutritional Asmnt/Malnutr-PDOC - Dietary Evaluation Malnutrition Findings (Please click <Entered> for more info): Nutritional Asmnt/Malnutrition Start: 12/02/16 14: 44 Text: Status: Complete Freq: Document 12/02/16 14:44 GSUN (Rec: 12/02/16 15:19 GSUN [place] [id number]) Nutritional Asmnt/Malnutrition Patient General Information Nutritional Screening Consult Diagnosis AKF, sacral decubitus ulcer stage IV, HTN, DM, dementia, chronic anemia Pertinent Medical Hx/Surgical Hx CAD, CVA, dementia, psychosis, muscle atrophy, AKF, DM, decubitus ulcer stage IV Subjective Information 81 year old female from SNF. RD consult for low Elliot and elevated blood glucose. Pt was awake, unable to provide nutrition hx. Family at bedside, spoke to family and HAI Pimentel regarding nutrition plan of care, PEG placement consent obtained. Family has no other questions at this time. Elevated BUN, mid wife, K, family reported pt is not on dialysis, "possible HD today" per H&P. Per nursing adm notes , 4-5lb wt loss in 2 weeks. Per family, unaware of UBW, aware of recent wt loss, stated pt stopped eating ~3-4 days ago. Loose skin, moderate to severe muslce fat wasting to chest and clavicles. Current Diet Order/ Nutrition Support NPO Pertinent Medications Dulcolax, D5-0.45ns, Novolog Pertinent Labs 12/01: A1c 9H 12/02: sodium 173H, potassium 5.3H, BUN 169H, creatinie 5.8H , glucose 238H, calcium 10.8H Nutritional Hx/Data Height 1.52 m Height (Calculated Centimeters) 152.4 Current Weight (lbs) 43.545 kg Weight (Calculated Kilograms) 43.5 Weight (Calculated Grams) 59729.9 [place] Body Weight 100 Recent Weight Change Yes Weight Status Approriate GI Symptoms Usual diet at home [facility]: pureed, [facility] Skin Integrity/Comment: Elliot 11. Sacral decubitus ulcer stage IV. Estimated Nutritional Goals Calories/Kcals/Kg IBW 100lb/45.5kg Kcals Calculated 1365-1593kcal (30-35kcal/kg) Protein Calculated 68-73g (1.4-1.6g/kg, ulcer vs renal, ?HD) Fluid: ml Per MD Nutritional Problem 3. Problem Problem Altered nutrition related laboratory values related to Etiology DM aeb Signs/Symptoms: A1c 9H, glucose 238H 2. Problem Problem Increased kcal and prot needs related to Etiology skin integrity, recent weight loss aeb Signs/Symptoms: Sacral decubitus ulcer stage IV, wt loss 4-5lb in 2 weeks per nursing adm notes, moderate to seevre muslce/fat wasting to chest and clavicles 1. Problem Problem Impaired nutrient utilization related to Etiology acute kidney injury aeb Signs/Symptoms: potassium 5.3H, BUN 169H, creatinie 5.8H, calcium 10.8H Intervention/Recommendation Comments 1. Discussed enteral nutrition with family. Family has no further questions at this time . 2. When medically feasible to initiate feeding, recommend Novasource Renal at 30ml/hr x 24hrs, providing 720ml total volume, 1440kcal, 65g protein. Initiate at 10ml/hr for first 24 hrs, monitor for refeeding syndrome and tolerance, increase by 5ml/hr q12hrs until goal. 3. Recommend 1 packet Arginaid daily via tube for wound healing. 4. Monitor weight closely. Hx 4-5lb wt loss in 2 weeks per nursing adm note. Expected Outcomes/Goals Expected Outcomes/Goals 1. Pt to meet at least 75% of estimated nutritinoal eneds on tube feeding with tolerance.
--- NOTE | 2016-12-08 08:51 | GI Progress Note ---
Subjective - Review of Systems Service Date: 12/08/16 Subjective: Continues on vent, spontaneous movements noted Objective - Results Result Diagrams: 12/08/16 04:23 12/08/16 04:23 Recent Labs: Laboratory Last Values WBC 10.7 Th/cmm (4.8-10.8) 12/08/16 04:23 Corrected WBC (auto) 8.8 Th/cmm (4.8-10.8) 12/01/16 18:25 RBC 2.65 Mil/cmm (3.80-5.20) L 12/08/16 04:23 Hgb 7.6 gm/dL (12-16) L* D 12/08/16 04:23 Hct 23.0 % (41.0-60) L D 12/08/16 04:23 MCV 87.0 fl (81-100) 12/08/16 04:23 MCH 28.9 pg (27.0-31.0) 12/08/16 04:23 MCHC Differential 33.2 pg (28.0-36.0) 12/08/16 04:23 RDW 19.3 % (11.5-20.0) 12/08/16 04:23 Plt Count 87 Th/cmm (150-400) L 12/08/16 04:23 MPV 13.4 fl 12/08/16 04:23 Neutrophils % 83.1 % (40.0-80.0) H 12/07/16 04:25 Band Neutrophils % 2 % (0-10) 12/08/16 04:23 Lymphocytes % 10.5 % (20.0-50.0) L 12/07/16 04:25 Monocytes % 4.7 % (2.0-10.0) 12/07/16 04:25 Eosinophils % 1.7 % (0.0-5.0) 12/07/16 04:25 Basophils % 0.0 % (0.0-2.0) 12/07/16 04:25 Neutrophils (Manual) 78 % (40-80) 12/08/16 04:23 Lymphocytes 15 % (20-50) L 12/08/16 04:23 Monocytes 4 % (2-10) 12/08/16 04:23 Eosinophils 1 % (0-5) 12/08/16 04:23 Nucleated RBCs 5.0 % (0-0) H 12/01/16 18:25 Atypical Lymphocytes 1 % 12/01/16 18:25 Platelet Estimate SLIGHT DECREASED (NORMAL) 12/08/16 04:23 Platelet Morphology NORMAL (NORMAL) 12/01/16 18:25 Anisocytosis 2+ 12/03/16 05:35 RBC Morph Micro Appear ABNORMAL (NORMAL) 12/01/16 18:25 Eos Smear Source URINE 12/03/16 06:30 Eos Smear Total Cells NONE SEEN (NONE SEEN) 12/03/16 06:30 PT 11.2 SECONDS (9.5-11.5) 12/03/16 05:35 INR 1.08 (0.5-1.4) 12/03/16 05:35 PTT (Actin FS) 19.6 SECONDS (26.0-38.0) L 12/01/16 18:25 Specimen Source Arterial 12/07/16 09:35 Sample Site LB 12/07/16 09:35 pH 7.38 (7.35-7.45) 12/07/16 09:35 pCO2 23.0 mmHg (35.0-45.0) L* 12/07/16 09:35 pO2 130.0 mmHg (80.0-100.0) H 12/07/16 09:35 HCO3 17.4 mEq/L (20.0-26.0) L 12/07/16 09:35 Base Excess -9.7 mEq/L (-3.0-3.0) L 12/07/16 09:35 O2 Saturation 99.0 % (92.0-100.0) 12/07/16 09:35 Isidro Test NA 12/07/16 09:35 Vent Rate 6 12/07/16 09:35 Inspired O2 30 12/07/16 09:35 Tidal Volume 450 12/07/16 09:35 PEEP 5 12/07/16 09:35 Pressure (ins/psv/peep) 10 12/07/16 09:35 Critical Value E.ZUNIGA 12/07/16 09:35 Sodium 146 mEq/L (136-145) H 12/08/16 04:23 Potassium 3.7 mEq/L (3.5-5.1) 12/08/16 04:23 Chloride 120 mEq/L (98-107) H 12/08/16 04:23 Carbon Dioxide 17.2 mEq/L (21.0-31.0) L 12/08/16 04:23 Anion Gap 12.5 (7.0-16.0) 12/08/16 04:23 BUN 69 mg/dL (7-25) H 12/08/16 04:23 Creatinine 2.7 mg/dL (0.6-1.2) H 12/08/16 04:23 Est GFR ( Amer) TNP 12/08/16 04:23 Est GFR (Non-Af Amer) TNP 12/08/16 04:23 BUN/Creatinine Ratio 25.6 12/08/16 04:23 Glucose 198 mg/dL (70-105) H 12/08/16 04:23 POC Glucose 216 MG/DL (70 - 105) H 12/08/16 06:55 Hemoglobin A1c % 9.0 % (4.0-6.0) H 12/01/16 18:25 Whole Bld Lactic Acid 2.84 mmol/L (0.60-1.99) H* 12/05/16 12:05 Uric Acid 11.6 mg/dL (2.3-6.6) H 12/03/16 05:35 Calcium 8.0 mg/dL (8.6-10.3) L 12/08/16 04:23 Magnesium 2.7 mg/dL (1.9-2.7) 12/03/16 05:35 Total Bilirubin 0.5 mg/dL (0.3-1.0) 12/08/16 04:23 AST 15 U/L (13-39) 12/08/16 04:23 ALT 6 U/L (7-52) L 12/08/16 04:23 Alkaline Phosphatase 280 U/L (34-104) H 12/08/16 04:23 Total Protein 4.0 gm/dL (6.0-8.3) L 12/08/16 04:23 Albumin 1.7 gm/dL (3.7-5.3) L 12/08/16 04:23 Globulin 2.3 gm/dL 12/08/16 04:23 Albumin/Globulin Ratio 0.7 (1.0-1.8) L 12/08/16 04:23 TSH 2.49 uIU/ml (0.34-5.60) 12/03/16 05:35 Urine Source SOTO PORT 12/02/16 14:56 Urine Color YELLOW 12/02/16 14:56 Urine Clarity HAZY (CLEAR) 12/02/16 14:56 Urine pH 8.0 (4.6 - 8.0) 12/02/16 14:56 Ur Specific [place] 1.015 (1.005-1.030) 12/02/16 14:56 Urine Protein 100 mg/dL (NEGATIVE) H 12/02/16 14:56 Urine Glucose (UA) 500 mg/dL (NEGATIVE) H 12/02/16 14:56 Urine Ketones NEGATIVE mg/dL (NEGATIVE) 12/02/16 14:56 Urine Blood MODERATE (NEGATIVE) H 12/02/16 14:56 Urine Nitrate POSITIVE (NEGATIVE) H 12/02/16 14:56 Urine Bilirubin NEGATIVE (NEGATIVE) 12/02/16 14:56 Urine Urobilinogen 0.2 E.U./dL (0.2 - 1.0) 12/02/16 14:56 Ur Leukocyte Esterase MODERATE (NEGATIVE) H 12/02/16 14:56 Urine RBC 5-10 /hpf (0-5) H 12/02/16 14:56 Urine WBC 50-100 /hpf (0-5) H 12/02/16 14:56 Ur Epithelial Cells FEW /lpf (FEW) 12/02/16 14:56 Triple Phos Crystals MODERATE /hpf (FEW) 12/02/16 14:56 Urine Bacteria MANY /hpf (NONE SEEN) 12/02/16 14:56 Urine Osmolality 488 mOsmol/kg 12/03/16 06:30 Ur Random Sodium 75 mmol/L 12/03/16 06:30 Urine Creatinine 49.0 mg/dl (28.0-217.0) 12/03/16 06:30 Blood Type O POSITIVE 12/08/16 04:23 Antibody Screen NEGATIVE 12/08/16 04:23 Crossmatch See Detail 12/08/16 04:23 - Physical Exam Vitals and I&O: Vital Signs Temp 98.6 F 12/08/16 04:00 Pulse 116 12/08/16 08:23 Resp 16 12/08/16 07:00 BP 117/59 12/08/16 07:00 Pulse Ox 97 12/08/16 08:23 Intake & Output 12/07/16 12/08/16 12/08/16 18:59 06:59 18:59 Intake Total 820 960 Output Total 670 650 Balance 150 310 Weight (lbs) 53.524 kg 55.656 kg Intake: Intake, IV Amount 250 200 Piperacillin Sodium/ 50 100 Tazobact 2.25 gm In Dextrose 5% 50 ml @ 100 mls/hr IV Q8H [facility] Rx#: [id number] metroNIDAZOLE 500mg/NS 200 100 100mL 500 mg In Premix Fluid 1 bag @ 100 mls/hr IV Q8H [facility] Rx#:[id number] Tube Feeding 450 660 Other 120 100 Output: Urine 650 550 Stool 20 100 Active Medications: Current Medications Acetaminophen (Tylenol) 650 mg PO Q6H PRN PRN Reason: Mild Pain or Fever >101 Stop: 01/31/17 11:18 Albuterol/Ipratropium (Duoneb Neb) 3 ml HHN Q6HRT [facility] Stop: 02/04/17 12:59 Last Admin: 12/08/16 08:13 Dose: 3 ml Albuterol/Ipratropium (Duoneb Neb) 3 ml HHN Q2HRT PRN PRN Reason: Wheezing Stop: 02/04/17 10:02 Last Admin: 12/06/16 10:23 Dose: 3 ml Bisacodyl (Dulcolax 5 Mg Ec Tab) 10 mg PO BID [facility] Stop: 01/31/17 16:59 Last Admin: 12/07/16 16:53 Dose: 10 mg Chlorhexidine Gluconate (Peridex) 15 ml MM 0800,2000 [facility] Stop: 02/03/17 19:59 Last Admin: 12/07/16 20:33 Dose: 15 ml Epoetin Esequiel (Epogen) 10,000 units SUBQ TuThSa [facility] Stop: 02/01/17 14:29 Last Admin: 12/06/16 17:01 Dose: 10,000 units Hydromorphone HCl (Dilaudid) 1 mg IVP Q6HR PRN PRN Reason: Pain (Moderate-Severe) Stop: 02/04/17 08:11 Last Admin: 12/08/16 02:17 Dose: 1 mg Piperacillin Sod/Tazobactam (Sod 2.25 gm/ Dextrose) 50 mls @ 100 mls/hr IV Q8H [facility] Stop: 02/03/17 10:59 Last Infusion: 12/08/16 04:05 Dose: Infused Metronidazole 500 mg/ (Miscellaneous) 100 mls @ 100 mls/hr IV Q8H [facility] Stop: 02/03/17 09:59 Last Infusion: 12/08/16 03:20 Dose: Infused Dextrose (D5w) 1,000 mls @ 50 mls/hr IV .Q20H [facility] Stop: 02/05/17 11:25 Last Admin: 12/07/16 13:56 Dose: 50 mls/hr Insulin Aspart (Novolog Insulin Sliding Scale) 0 units SUBQ ACHS [facility] PRN Reason: Protocol Stop: 01/31/17 07:29 Last Admin: 12/08/16 07:03 Dose: 5 units Insulin Detemir (Levemir Insulin) 10 units SUBQ HS [facility] PRN Reason: Protocol Stop: 02/03/17 20:59 Last Admin: 12/07/16 20:35 Dose: 10 unit Lorazepam (Ativan) 1 mg IVP Q8HR PRN; Protocol PRN Reason: AGITATION Stop: 02/04/17 19:42 Last Admin: 12/06/16 21:16 Dose: 1 mg Miscellaneous (Vte Chemical Prophylaxis Screen/ Admission) 1 ea PRN PRN PRN Reason: PROTOCOL Stop: 01/31/17 13:38 Miscellaneous (Clinical Monitoring) 1 ea MC DAILY PRN PRN Reason: RENAL Stop: 02/04/17 08:05 Pantoprazole Sodium (Protonix) 40 mg IVP DAILY [facility] Stop: 02/01/17 08:59 Last Admin: 12/07/16 08:47 Dose: 40 mg Potassium Chloride (Potassium Chloride Elixir) 20 meq GT DAILY [facility] Stop: 02/05/17 09:14 Last Admin: 12/07/16 10:01 Dose: 20 meq Sodium Bicarbonate (Sodium Bicarbonate) 650 mg GT TID BRIELLE PRN Reason: Protocol Stop: 02/05/17 20:59 Last Admin: 12/07/16 21:30 Dose: 650 mg General: No acute distress, Other (Intubated.) HEENT: Atraumatic Neck: Supple Cardiovascular: Regular rate Lungs: Clear to auscultation, Other (few rhonchi) Abdomen: Bowel sounds, Soft, Other (PEG in place, Colostomy in place) Extremities: Other (No edema), no Edema Neurological: Sensation intact, Other (Non ambulatory) Skin: no Significant lesion Psych/Mental Status: Mood NL, Other (Awake, alert, restless, intubated) - Procedures Procedures: Procedures Procedure Code Date BYPASS DESCENDING COLON TO CUTANEOUS, OPEN APPROACH [id number] 12/02/16 COLOSTOMY 80632 12/02/16 CHAGO BONE 20 SQ CM/< [id number] 12/02/16 CHAGO MUSC/FASCIA 20 SQ CM/< [id number] 10/24/16 CHAGO SUBQ TISSUE 20 SQ CM/< [id number] 12/02/16 EXCISION OF L FOOT SUBCU/FASCIA, OPEN APPROACH [id number] 12/02/16 EXCISION OF LEFT HIP MUSCLE, OPEN APPROACH [id number] 10/24/16 EXCISION OF LEFT PELVIC BONE, OPEN APPROACH [id number] 12/02/16 EXCISION OF R FOOT SUBCU/FASCIA, OPEN APPROACH [id number] 12/02/16 RESPIRATORY VENTILATION, 24-96 CONSECUTIVE HOURS [id number] 12/02/16 Assessment/Plan - Problem List Patient Problems: All Active Problems POOR ORAL INTAKE AND SWALLOWING (Acute) SACRAL AND BILATERAL BUTTOCK SKIN ULCERS (Acute) - Assessment Assessment: # Dysphagia, s/p PEG placement on 12/03 - Tolerating feeds without issue - hold for residuals greater than 200cc - 100c water flushes every 6 hours # 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 No overt GI bleeding.
--- NOTE | 2016-12-08 08:51 | GI Progress Note ---
Subjective - Review of Systems Service Date: 12/08/16 Subjective: Continues on vent, spontaneous movements noted Objective - Results Result Diagrams: 12/08/16 04:23 12/08/16 04:23 Recent Labs: Laboratory Last Values WBC 10.7 Th/cmm (4.8-10.8) 12/08/16 04:23 Corrected WBC (auto) 8.8 Th/cmm (4.8-10.8) 12/01/16 18:25 RBC 2.65 Mil/cmm (3.80-5.20) L 12/08/16 04:23 Hgb 7.6 gm/dL (12-16) L* D 12/08/16 04:23 Hct 23.0 % (41.0-60) L D 12/08/16 04:23 MCV 87.0 fl (81-100) 12/08/16 04:23 MCH 28.9 pg (27.0-31.0) 12/08/16 04:23 MCHC Differential 33.2 pg (28.0-36.0) 12/08/16 04:23 RDW 19.3 % (11.5-20.0) 12/08/16 04:23 Plt Count 87 Th/cmm (150-400) L 12/08/16 04:23 MPV 13.4 fl 12/08/16 04:23 Neutrophils % 83.1 % (40.0-80.0) H 12/07/16 04:25 Band Neutrophils % 2 % (0-10) 12/08/16 04:23 Lymphocytes % 10.5 % (20.0-50.0) L 12/07/16 04:25 Monocytes % 4.7 % (2.0-10.0) 12/07/16 04:25 Eosinophils % 1.7 % (0.0-5.0) 12/07/16 04:25 Basophils % 0.0 % (0.0-2.0) 12/07/16 04:25 Neutrophils (Manual) 78 % (40-80) 12/08/16 04:23 Lymphocytes 15 % (20-50) L 12/08/16 04:23 Monocytes 4 % (2-10) 12/08/16 04:23 Eosinophils 1 % (0-5) 12/08/16 04:23 Nucleated RBCs 5.0 % (0-0) H 12/01/16 18:25 Atypical Lymphocytes 1 % 12/01/16 18:25 Platelet Estimate SLIGHT DECREASED (NORMAL) 12/08/16 04:23 Platelet Morphology NORMAL (NORMAL) 12/01/16 18:25 Anisocytosis 2+ 12/03/16 05:35 RBC Morph Micro Appear ABNORMAL (NORMAL) 12/01/16 18:25 Eos Smear Source URINE 12/03/16 06:30 Eos Smear Total Cells NONE SEEN (NONE SEEN) 12/03/16 06:30 PT 11.2 SECONDS (9.5-11.5) 12/03/16 05:35 INR 1.08 (0.5-1.4) 12/03/16 05:35 PTT (Actin FS) 19.6 SECONDS (26.0-38.0) L 12/01/16 18:25 Specimen Source Arterial 12/07/16 09:35 Sample Site LB 12/07/16 09:35 pH 7.38 (7.35-7.45) 12/07/16 09:35 pCO2 23.0 mmHg (35.0-45.0) L* 12/07/16 09:35 pO2 130.0 mmHg (80.0-100.0) H 12/07/16 09:35 HCO3 17.4 mEq/L (20.0-26.0) L 12/07/16 09:35 Base Excess -9.7 mEq/L (-3.0-3.0) L 12/07/16 09:35 O2 Saturation 99.0 % (92.0-100.0) 12/07/16 09:35 Isidro Test NA 12/07/16 09:35 Vent Rate 6 12/07/16 09:35 Inspired O2 30 12/07/16 09:35 Tidal Volume 450 12/07/16 09:35 PEEP 5 12/07/16 09:35 Pressure (ins/psv/peep) 10 12/07/16 09:35 Critical Value E.ZUNIGA 12/07/16 09:35 Sodium 146 mEq/L (136-145) H 12/08/16 04:23 Potassium 3.7 mEq/L (3.5-5.1) 12/08/16 04:23 Chloride 120 mEq/L (98-107) H 12/08/16 04:23 Carbon Dioxide 17.2 mEq/L (21.0-31.0) L 12/08/16 04:23 Anion Gap 12.5 (7.0-16.0) 12/08/16 04:23 BUN 69 mg/dL (7-25) H 12/08/16 04:23 Creatinine 2.7 mg/dL (0.6-1.2) H 12/08/16 04:23 Est GFR ( Amer) TNP 12/08/16 04:23 Est GFR (Non-Af Amer) TNP 12/08/16 04:23 BUN/Creatinine Ratio 25.6 12/08/16 04:23 Glucose 198 mg/dL (70-105) H 12/08/16 04:23 POC Glucose 216 MG/DL (70 - 105) H 12/08/16 06:55 Hemoglobin A1c % 9.0 % (4.0-6.0) H 12/01/16 18:25 Whole Bld Lactic Acid 2.84 mmol/L (0.60-1.99) H* 12/05/16 12:05 Uric Acid 11.6 mg/dL (2.3-6.6) H 12/03/16 05:35 Calcium 8.0 mg/dL (8.6-10.3) L 12/08/16 04:23 Magnesium 2.7 mg/dL (1.9-2.7) 12/03/16 05:35 Total Bilirubin 0.5 mg/dL (0.3-1.0) 12/08/16 04:23 AST 15 U/L (13-39) 12/08/16 04:23 ALT 6 U/L (7-52) L 12/08/16 04:23 Alkaline Phosphatase 280 U/L (34-104) H 12/08/16 04:23 Total Protein 4.0 gm/dL (6.0-8.3) L 12/08/16 04:23 Albumin 1.7 gm/dL (3.7-5.3) L 12/08/16 04:23 Globulin 2.3 gm/dL 12/08/16 04:23 Albumin/Globulin Ratio 0.7 (1.0-1.8) L 12/08/16 04:23 TSH 2.49 uIU/ml (0.34-5.60) 12/03/16 05:35 Urine Source SOTO PORT 12/02/16 14:56 Urine Color YELLOW 12/02/16 14:56 Urine Clarity HAZY (CLEAR) 12/02/16 14:56 Urine pH 8.0 (4.6 - 8.0) 12/02/16 14:56 Ur Specific [place] 1.015 (1.005-1.030) 12/02/16 14:56 Urine Protein 100 mg/dL (NEGATIVE) H 12/02/16 14:56 Urine Glucose (UA) 500 mg/dL (NEGATIVE) H 12/02/16 14:56 Urine Ketones NEGATIVE mg/dL (NEGATIVE) 12/02/16 14:56 Urine Blood MODERATE (NEGATIVE) H 12/02/16 14:56 Urine Nitrate POSITIVE (NEGATIVE) H 12/02/16 14:56 Urine Bilirubin NEGATIVE (NEGATIVE) 12/02/16 14:56 Urine Urobilinogen 0.2 E.U./dL (0.2 - 1.0) 12/02/16 14:56 Ur Leukocyte Esterase MODERATE (NEGATIVE) H 12/02/16 14:56 Urine RBC 5-10 /hpf (0-5) H 12/02/16 14:56 Urine WBC 50-100 /hpf (0-5) H 12/02/16 14:56 Ur Epithelial Cells FEW /lpf (FEW) 12/02/16 14:56 Triple Phos Crystals MODERATE /hpf (FEW) 12/02/16 14:56 Urine Bacteria MANY /hpf (NONE SEEN) 12/02/16 14:56 Urine Osmolality 488 mOsmol/kg 12/03/16 06:30 Ur Random Sodium 75 mmol/L 12/03/16 06:30 Urine Creatinine 49.0 mg/dl (28.0-217.0) 12/03/16 06:30 Blood Type O POSITIVE 12/08/16 04:23 Antibody Screen NEGATIVE 12/08/16 04:23 Crossmatch See Detail 12/08/16 04:23 - Physical Exam Vitals and I&O: Vital Signs Temp 98.6 F 12/08/16 04:00 Pulse 116 12/08/16 08:23 Resp 16 12/08/16 07:00 BP 117/59 12/08/16 07:00 Pulse Ox 97 12/08/16 08:23 Intake & Output 12/07/16 12/08/16 12/08/16 18:59 06:59 18:59 Intake Total 820 960 Output Total 670 650 Balance 150 310 Weight (lbs) 53.524 kg 55.656 kg Intake: Intake, IV Amount 250 200 Piperacillin Sodium/ 50 100 Tazobact 2.25 gm In Dextrose 5% 50 ml @ 100 mls/hr IV Q8H [facility] Rx#: [id number] metroNIDAZOLE 500mg/NS 200 100 100mL 500 mg In Premix Fluid 1 bag @ 100 mls/hr IV Q8H [facility] Rx#:[id number] Tube Feeding 450 660 Other 120 100 Output: Urine 650 550 Stool 20 100 Active Medications: Current Medications Acetaminophen (Tylenol) 650 mg PO Q6H PRN PRN Reason: Mild Pain or Fever >101 Stop: 01/31/17 11:18 Albuterol/Ipratropium (Duoneb Neb) 3 ml HHN Q6HRT [facility] Stop: 02/04/17 12:59 Last Admin: 12/08/16 08:13 Dose: 3 ml Albuterol/Ipratropium (Duoneb Neb) 3 ml HHN Q2HRT PRN PRN Reason: Wheezing Stop: 02/04/17 10:02 Last Admin: 12/06/16 10:23 Dose: 3 ml Bisacodyl (Dulcolax 5 Mg Ec Tab) 10 mg PO BID [facility] Stop: 01/31/17 16:59 Last Admin: 12/07/16 16:53 Dose: 10 mg Chlorhexidine Gluconate (Peridex) 15 ml MM 0800,2000 [facility] Stop: 02/03/17 19:59 Last Admin: 12/07/16 20:33 Dose: 15 ml Epoetin Esequiel (Epogen) 10,000 units SUBQ TuThSa [facility] Stop: 02/01/17 14:29 Last Admin: 12/06/16 17:01 Dose: 10,000 units Hydromorphone HCl (Dilaudid) 1 mg IVP Q6HR PRN PRN Reason: Pain (Moderate-Severe) Stop: 02/04/17 08:11 Last Admin: 12/08/16 02:17 Dose: 1 mg Piperacillin Sod/Tazobactam (Sod 2.25 gm/ Dextrose) 50 mls @ 100 mls/hr IV Q8H [facility] Stop: 02/03/17 10:59 Last Infusion: 12/08/16 04:05 Dose: Infused Metronidazole 500 mg/ (Miscellaneous) 100 mls @ 100 mls/hr IV Q8H [facility] Stop: 02/03/17 09:59 Last Infusion: 12/08/16 03:20 Dose: Infused Dextrose (D5w) 1,000 mls @ 50 mls/hr IV .Q20H [facility] Stop: 02/05/17 11:25 Last Admin: 12/07/16 13:56 Dose: 50 mls/hr Insulin Aspart (Novolog Insulin Sliding Scale) 0 units SUBQ ACHS [facility] PRN Reason: Protocol Stop: 01/31/17 07:29 Last Admin: 12/08/16 07:03 Dose: 5 units Insulin Detemir (Levemir Insulin) 10 units SUBQ HS [facility] PRN Reason: Protocol Stop: 02/03/17 20:59 Last Admin: 12/07/16 20:35 Dose: 10 unit Lorazepam (Ativan) 1 mg IVP Q8HR PRN; Protocol PRN Reason: AGITATION Stop: 02/04/17 19:42 Last Admin: 12/06/16 21:16 Dose: 1 mg Miscellaneous (Vte Chemical Prophylaxis Screen/ Admission) 1 ea PRN PRN PRN Reason: PROTOCOL Stop: 01/31/17 13:38 Miscellaneous (Clinical Monitoring) 1 ea MC DAILY PRN PRN Reason: RENAL Stop: 02/04/17 08:05 Pantoprazole Sodium (Protonix) 40 mg IVP DAILY [facility] Stop: 02/01/17 08:59 Last Admin: 12/07/16 08:47 Dose: 40 mg Potassium Chloride (Potassium Chloride Elixir) 20 meq GT DAILY [facility] Stop: 02/05/17 09:14 Last Admin: 12/07/16 10:01 Dose: 20 meq Sodium Bicarbonate (Sodium Bicarbonate) 650 mg GT TID [facility] PRN Reason: Protocol Stop: 02/05/17 20:59 Last Admin: 12/07/16 21:30 Dose: 650 mg General: No acute distress, Other (Intubated.) HEENT: Atraumatic Neck: Supple Cardiovascular: Regular rate Lungs: Clear to auscultation, Other (few rhonchi) Abdomen: Bowel sounds, Soft, Other (PEG in place, Colostomy in place) Extremities: Other (No edema), no Edema Neurological: Sensation intact, Other (Non ambulatory) Skin: no Significant lesion Psych/Mental Status: Mood NL, Other (Awake, alert, restless, intubated) - Procedures Procedures: Procedures Procedure Code Date BYPASS DESCENDING COLON TO CUTANEOUS, OPEN APPROACH [id number] 12/02/16 COLOSTOMY 69801 12/02/16 CHAGO BONE 20 SQ CM/< 15564 12/02/16 CHAGO MUSC/FASCIA 20 SQ CM/< 65187 10/24/16 CHAGO SUBQ TISSUE 20 SQ CM/< 43898 12/02/16 EXCISION OF L FOOT SUBCU/FASCIA, OPEN APPROACH [id number] 12/02/16 EXCISION OF LEFT HIP MUSCLE, OPEN APPROACH [id number] 10/24/16 EXCISION OF LEFT PELVIC BONE, OPEN APPROACH [id number] 12/02/16 EXCISION OF R FOOT SUBCU/FASCIA, OPEN APPROACH [id number] 12/02/16 RESPIRATORY VENTILATION, 24-96 CONSECUTIVE HOURS [id number] 12/02/16 Assessment/Plan - Problem List Patient Problems: All Active Problems POOR ORAL INTAKE AND SWALLOWING (Acute) SACRAL AND BILATERAL BUTTOCK SKIN ULCERS (Acute) - Assessment Assessment: # Dysphagia, s/p PEG placement on 12/03 - Tolerating feeds without issue - hold for residuals greater than 200cc - 100c water flushes every 6 hours # 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 No overt GI bleeding.
--- NOTE | 2016-12-08 08:51 | GI Progress Note ---
Subjective - Review of Systems Service Date: 12/08/16 Subjective: Continues on vent, spontaneous movements noted Objective - Results Result Diagrams: 12/08/16 04:23 12/08/16 04:23 Recent Labs: Laboratory Last Values WBC 10.7 Th/cmm (4.8-10.8) 12/08/16 04:23 Corrected WBC (auto) 8.8 Th/cmm (4.8-10.8) 12/01/16 18:25 RBC 2.65 Mil/cmm (3.80-5.20) L 12/08/16 04:23 Hgb 7.6 gm/dL (12-16) L* D 12/08/16 04:23 Hct 23.0 % (41.0-60) L D 12/08/16 04:23 MCV 87.0 fl (81-100) 12/08/16 04:23 MCH 28.9 pg (27.0-31.0) 12/08/16 04:23 MCHC Differential 33.2 pg (28.0-36.0) 12/08/16 04:23 RDW 19.3 % (11.5-20.0) 12/08/16 04:23 Plt Count 87 Th/cmm (150-400) L 12/08/16 04:23 MPV 13.4 fl 12/08/16 04:23 Neutrophils % 83.1 % (40.0-80.0) H 12/07/16 04:25 Band Neutrophils % 2 % (0-10) 12/08/16 04:23 Lymphocytes % 10.5 % (20.0-50.0) L 12/07/16 04:25 Monocytes % 4.7 % (2.0-10.0) 12/07/16 04:25 Eosinophils % 1.7 % (0.0-5.0) 12/07/16 04:25 Basophils % 0.0 % (0.0-2.0) 12/07/16 04:25 Neutrophils (Manual) 78 % (40-80) 12/08/16 04:23 Lymphocytes 15 % (20-50) L 12/08/16 04:23 Monocytes 4 % (2-10) 12/08/16 04:23 Eosinophils 1 % (0-5) 12/08/16 04:23 Nucleated RBCs 5.0 % (0-0) H 12/01/16 18:25 Atypical Lymphocytes 1 % 12/01/16 18:25 Platelet Estimate SLIGHT DECREASED (NORMAL) 12/08/16 04:23 Platelet Morphology NORMAL (NORMAL) 12/01/16 18:25 Anisocytosis 2+ 12/03/16 05:35 RBC Morph Micro Appear ABNORMAL (NORMAL) 12/01/16 18:25 Eos Smear Source URINE 12/03/16 06:30 Eos Smear Total Cells NONE SEEN (NONE SEEN) 12/03/16 06:30 PT 11.2 SECONDS (9.5-11.5) 12/03/16 05:35 INR 1.08 (0.5-1.4) 12/03/16 05:35 PTT (Actin FS) 19.6 SECONDS (26.0-38.0) L 12/01/16 18:25 Specimen Source Arterial 12/07/16 09:35 Sample Site LB 12/07/16 09:35 pH 7.38 (7.35-7.45) 12/07/16 09:35 pCO2 23.0 mmHg (35.0-45.0) L* 12/07/16 09:35 pO2 130.0 mmHg (80.0-100.0) H 12/07/16 09:35 HCO3 17.4 mEq/L (20.0-26.0) L 12/07/16 09:35 Base Excess -9.7 mEq/L (-3.0-3.0) L 12/07/16 09:35 O2 Saturation 99.0 % (92.0-100.0) 12/07/16 09:35 Isidro Test NA 12/07/16 09:35 Vent Rate 6 12/07/16 09:35 Inspired O2 30 12/07/16 09:35 Tidal Volume 450 12/07/16 09:35 PEEP 5 12/07/16 09:35 Pressure (ins/psv/peep) 10 12/07/16 09:35 Critical Value E.ZUNIGA 12/07/16 09:35 Sodium 146 mEq/L (136-145) H 12/08/16 04:23 Potassium 3.7 mEq/L (3.5-5.1) 12/08/16 04:23 Chloride 120 mEq/L (98-107) H 12/08/16 04:23 Carbon Dioxide 17.2 mEq/L (21.0-31.0) L 12/08/16 04:23 Anion Gap 12.5 (7.0-16.0) 12/08/16 04:23 BUN 69 mg/dL (7-25) H 12/08/16 04:23 Creatinine 2.7 mg/dL (0.6-1.2) H 12/08/16 04:23 Est GFR ( Amer) TNP 12/08/16 04:23 Est GFR (Non-Af Amer) TNP 12/08/16 04:23 BUN/Creatinine Ratio 25.6 12/08/16 04:23 Glucose 198 mg/dL (70-105) H 12/08/16 04:23 POC Glucose 216 MG/DL (70 - 105) H 12/08/16 06:55 Hemoglobin A1c % 9.0 % (4.0-6.0) H 12/01/16 18:25 Whole Bld Lactic Acid 2.84 mmol/L (0.60-1.99) H* 12/05/16 12:05 Uric Acid 11.6 mg/dL (2.3-6.6) H 12/03/16 05:35 Calcium 8.0 mg/dL (8.6-10.3) L 12/08/16 04:23 Magnesium 2.7 mg/dL (1.9-2.7) 12/03/16 05:35 Total Bilirubin 0.5 mg/dL (0.3-1.0) 12/08/16 04:23 AST 15 U/L (13-39) 12/08/16 04:23 ALT 6 U/L (7-52) L 12/08/16 04:23 Alkaline Phosphatase 280 U/L (34-104) H 12/08/16 04:23 Total Protein 4.0 gm/dL (6.0-8.3) L 12/08/16 04:23 Albumin 1.7 gm/dL (3.7-5.3) L 12/08/16 04:23 Globulin 2.3 gm/dL 12/08/16 04:23 Albumin/Globulin Ratio 0.7 (1.0-1.8) L 12/08/16 04:23 TSH 2.49 uIU/ml (0.34-5.60) 12/03/16 05:35 Urine Source SOTO PORT 12/02/16 14:56 Urine Color YELLOW 12/02/16 14:56 Urine Clarity HAZY (CLEAR) 12/02/16 14:56 Urine pH 8.0 (4.6 - 8.0) 12/02/16 14:56 Ur Specific [place] 1.015 (1.005-1.030) 12/02/16 14:56 Urine Protein 100 mg/dL (NEGATIVE) H 12/02/16 14:56 Urine Glucose (UA) 500 mg/dL (NEGATIVE) H 12/02/16 14:56 Urine Ketones NEGATIVE mg/dL (NEGATIVE) 12/02/16 14:56 Urine Blood MODERATE (NEGATIVE) H 12/02/16 14:56 Urine Nitrate POSITIVE (NEGATIVE) H 12/02/16 14:56 Urine Bilirubin NEGATIVE (NEGATIVE) 12/02/16 14:56 Urine Urobilinogen 0.2 E.U./dL (0.2 - 1.0) 12/02/16 14:56 Ur Leukocyte Esterase MODERATE (NEGATIVE) H 12/02/16 14:56 Urine RBC 5-10 /hpf (0-5) H 12/02/16 14:56 Urine WBC 50-100 /hpf (0-5) H 12/02/16 14:56 Ur Epithelial Cells FEW /lpf (FEW) 12/02/16 14:56 Triple Phos Crystals MODERATE /hpf (FEW) 12/02/16 14:56 Urine Bacteria MANY /hpf (NONE SEEN) 12/02/16 14:56 Urine Osmolality 488 mOsmol/kg 12/03/16 06:30 Ur Random Sodium 75 mmol/L 12/03/16 06:30 Urine Creatinine 49.0 mg/dl (28.0-217.0) 12/03/16 06:30 Blood Type O POSITIVE 12/08/16 04:23 Antibody Screen NEGATIVE 12/08/16 04:23 Crossmatch See Detail 12/08/16 04:23 - Physical Exam Vitals and I&O: Vital Signs Temp 98.6 F 12/08/16 04:00 Pulse 116 12/08/16 08:23 Resp 16 12/08/16 07:00 BP 117/59 12/08/16 07:00 Pulse Ox 97 12/08/16 08:23 Intake & Output 12/07/16 12/08/16 12/08/16 18:59 06:59 18:59 Intake Total 820 960 Output Total 670 650 Balance 150 310 Weight (lbs) 53.524 kg 55.656 kg Intake: Intake, IV Amount 250 200 Piperacillin Sodium/ 50 100 Tazobact 2.25 gm In Dextrose 5% 50 ml @ 100 mls/hr IV Q8H [facility] Rx#: [id number] metroNIDAZOLE 500mg/NS 200 100 100mL 500 mg In Premix Fluid 1 bag @ 100 mls/hr IV Q8H [facility] Rx#:[id number] Tube Feeding 450 660 Other 120 100 Output: Urine 650 550 Stool 20 100 Active Medications: Current Medications Acetaminophen (Tylenol) 650 mg PO Q6H PRN PRN Reason: Mild Pain or Fever >101 Stop: 01/31/17 11:18 Albuterol/Ipratropium (Duoneb Neb) 3 ml HHN Q6HRT [facility] Stop: 02/04/17 12:59 Last Admin: 12/08/16 08:13 Dose: 3 ml Albuterol/Ipratropium (Duoneb Neb) 3 ml HHN Q2HRT PRN PRN Reason: Wheezing Stop: 02/04/17 10:02 Last Admin: 12/06/16 10:23 Dose: 3 ml Bisacodyl (Dulcolax 5 Mg Ec Tab) 10 mg PO BID [facility] Stop: 01/31/17 16:59 Last Admin: 12/07/16 16:53 Dose: 10 mg Chlorhexidine Gluconate (Peridex) 15 ml MM 0800,2000 [facility] Stop: 02/03/17 19:59 Last Admin: 12/07/16 20:33 Dose: 15 ml Epoetin Esequiel (Epogen) 10,000 units SUBQ TuThSa [facility] Stop: 02/01/17 14:29 Last Admin: 12/06/16 17:01 Dose: 10,000 units Hydromorphone HCl (Dilaudid) 1 mg IVP Q6HR PRN PRN Reason: Pain (Moderate-Severe) Stop: 02/04/17 08:11 Last Admin: 12/08/16 02:17 Dose: 1 mg Piperacillin Sod/Tazobactam (Sod 2.25 gm/ Dextrose) 50 mls @ 100 mls/hr IV Q8H [facility] Stop: 02/03/17 10:59 Last Infusion: 12/08/16 04:05 Dose: Infused Metronidazole 500 mg/ (Miscellaneous) 100 mls @ 100 mls/hr IV Q8H [facility] Stop: 02/03/17 09:59 Last Infusion: 12/08/16 03:20 Dose: Infused Dextrose (D5w) 1,000 mls @ 50 mls/hr IV .Q20H [facility] Stop: 02/05/17 11:25 Last Admin: 12/07/16 13:56 Dose: 50 mls/hr Insulin Aspart (Novolog Insulin Sliding Scale) 0 units SUBQ ACHS [facility] PRN Reason: Protocol Stop: 01/31/17 07:29 Last Admin: 12/08/16 07:03 Dose: 5 units Insulin Detemir (Levemir Insulin) 10 units SUBQ HS [facility] PRN Reason: Protocol Stop: 02/03/17 20:59 Last Admin: 12/07/16 20:35 Dose: 10 unit Lorazepam (Ativan) 1 mg IVP Q8HR PRN; Protocol PRN Reason: AGITATION Stop: 02/04/17 19:42 Last Admin: 12/06/16 21:16 Dose: 1 mg Miscellaneous (Vte Chemical Prophylaxis Screen/ Admission) 1 ea PRN PRN PRN Reason: PROTOCOL Stop: 01/31/17 13:38 Miscellaneous (Clinical Monitoring) 1 ea MC DAILY PRN PRN Reason: RENAL Stop: 02/04/17 08:05 Pantoprazole Sodium (Protonix) 40 mg IVP DAILY [facility] Stop: 02/01/17 08:59 Last Admin: 12/07/16 08:47 Dose: 40 mg Potassium Chloride (Potassium Chloride Elixir) 20 meq GT DAILY [facility] Stop: 02/05/17 09:14 Last Admin: 12/07/16 10:01 Dose: 20 meq Sodium Bicarbonate (Sodium Bicarbonate) 650 mg GT TID [facility] PRN Reason: Protocol Stop: 02/05/17 20:59 Last Admin: 12/07/16 21:30 Dose: 650 mg General: No acute distress, Other (Intubated.) HEENT: Atraumatic Neck: Supple Cardiovascular: Regular rate Lungs: Clear to auscultation, Other (few rhonchi) Abdomen: Bowel sounds, Soft, Other (PEG in place, Colostomy in place) Extremities: Other (No edema), no Edema Neurological: Sensation intact, Other (Non ambulatory) Skin: no Significant lesion Psych/Mental Status: Mood NL, Other (Awake, alert, restless, intubated) - Procedures Procedures: Procedures Procedure Code Date BYPASS DESCENDING COLON TO CUTANEOUS, OPEN APPROACH [id number] 12/02/16 COLOSTOMY 42202 12/02/16 CHAGO BONE 20 SQ CM/< 01003 12/02/16 CHAGO MUSC/FASCIA 20 SQ CM/< 57620 10/24/16 CHAGO SUBQ TISSUE 20 SQ CM/< 99206 12/02/16 EXCISION OF L FOOT SUBCU/FASCIA, OPEN APPROACH [id number] 12/02/16 EXCISION OF LEFT HIP MUSCLE, OPEN APPROACH [id number] 10/24/16 EXCISION OF LEFT PELVIC BONE, OPEN APPROACH [id number] 12/02/16 EXCISION OF R FOOT SUBCU/FASCIA, OPEN APPROACH [id number] 12/02/16 RESPIRATORY VENTILATION, 24-96 CONSECUTIVE HOURS [id number] 12/02/16 Assessment/Plan - Problem List Patient Problems: All Active Problems POOR ORAL INTAKE AND SWALLOWING (Acute) SACRAL AND BILATERAL BUTTOCK SKIN ULCERS (Acute) - Assessment Assessment: # Dysphagia, s/p PEG placement on 12/03 - Tolerating feeds without issue - hold for residuals greater than 200cc - 100c water flushes every 6 hours # 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 No overt GI bleeding.
[2016-12-08 09:28] LABS: ALLEN TEST YES
[2016-12-08] MEDS: Multivitamin w/ Minerals Tab PO SCH (09:58)
[2016-12-08] MEDS: Potassium Chloride Elixir 20 mEq /15 mL UDC GT SCH (09:59)
[2016-12-08] MEDS ORDERED: Probiotic Screen MC PRN (10:00)
[2016-12-08] MEDS: Chlorhexidine Gluconate 0.12% 15mL Mouthwash MM SCH ×2 (10:44→20:58)
--- NOTE | 2016-12-08 10:48 | General Progress Note ---
Subjective - Review of Systems Subjective: Patient is sleeping but arousable, non verbal. Objective - Results Result Diagrams: 12/08/16 04:23 12/08/16 04:23 Recent Labs: Laboratory Last Values WBC 10.7 Th/cmm (4.8-10.8) 12/08/16 04:23 Corrected WBC (auto) 8.8 Th/cmm (4.8-10.8) 12/01/16 18:25 RBC 2.65 Mil/cmm (3.80-5.20) L 12/08/16 04:23 Hgb 7.6 gm/dL (12-16) L* D 12/08/16 04:23 Hct 23.0 % (41.0-60) L D 12/08/16 04:23 MCV 87.0 fl (81-100) 12/08/16 04:23 MCH 28.9 pg (27.0-31.0) 12/08/16 04:23 MCHC Differential 33.2 pg (28.0-36.0) 12/08/16 04:23 RDW 19.3 % (11.5-20.0) 12/08/16 04:23 Plt Count 87 Th/cmm (150-400) L 12/08/16 04:23 MPV 13.4 fl 12/08/16 04:23 Neutrophils % 83.1 % (40.0-80.0) H 12/07/16 04:25 Band Neutrophils % 2 % (0-10) 12/08/16 04:23 Lymphocytes % 10.5 % (20.0-50.0) L 12/07/16 04:25 Monocytes % 4.7 % (2.0-10.0) 12/07/16 04:25 Eosinophils % 1.7 % (0.0-5.0) 12/07/16 04:25 Basophils % 0.0 % (0.0-2.0) 12/07/16 04:25 Neutrophils (Manual) 78 % (40-80) 12/08/16 04:23 Lymphocytes 15 % (20-50) L 12/08/16 04:23 Monocytes 4 % (2-10) 12/08/16 04:23 Eosinophils 1 % (0-5) 12/08/16 04:23 Nucleated RBCs 5.0 % (0-0) H 12/01/16 18:25 Atypical Lymphocytes 1 % 12/01/16 18:25 Platelet Estimate SLIGHT DECREASED (NORMAL) 12/08/16 04:23 Platelet Morphology NORMAL (NORMAL) 12/01/16 18:25 Anisocytosis 2+ 12/03/16 05:35 RBC Morph Micro Appear ABNORMAL (NORMAL) 12/01/16 18:25 Eos Smear Source URINE 12/03/16 06:30 Eos Smear Total Cells NONE SEEN (NONE SEEN) 12/03/16 06:30 PT 11.2 SECONDS (9.5-11.5) 12/03/16 05:35 INR 1.08 (0.5-1.4) 12/03/16 05:35 PTT (Actin FS) 19.6 SECONDS (26.0-38.0) L 12/01/16 18:25 Specimen Source Arterial 12/08/16 09:12 Sample Site Left Radial 12/08/16 09:12 pH 7.40 (7.35-7.45) 12/08/16 09:12 pCO2 25.0 mmHg (35.0-45.0) L 12/08/16 09:12 pO2 130.0 mmHg (80.0-100.0) H 12/08/16 09:12 HCO3 19.0 mEq/L (20.0-26.0) L 12/08/16 09:12 Base Excess -7.7 mEq/L (-3.0-3.0) L 12/08/16 09:12 O2 Saturation 99.0 % (92.0-100.0) 12/08/16 09:12 Isidro Test YES 12/08/16 09:12 Vent Rate 6 12/08/16 09:12 Inspired O2 30 12/08/16 09:12 Tidal Volume 450 12/08/16 09:12 PEEP 5 12/08/16 09:12 Pressure (ins/psv/peep) 10 12/08/16 09:12 Critical Value SUSANNAH GARCIA 12/08/16 09:12 Sodium 146 mEq/L (136-145) H 12/08/16 04:23 Potassium 3.7 mEq/L (3.5-5.1) 12/08/16 04:23 Chloride 120 mEq/L (98-107) H 12/08/16 04:23 Carbon Dioxide 17.2 mEq/L (21.0-31.0) L 12/08/16 04:23 Anion Gap 12.5 (7.0-16.0) 12/08/16 04:23 BUN 69 mg/dL (7-25) H 12/08/16 04:23 Creatinine 2.7 mg/dL (0.6-1.2) H 12/08/16 04:23 Est GFR ( Amer) TNP 12/08/16 04:23 Est GFR (Non-Af Amer) TNP 12/08/16 04:23 BUN/Creatinine Ratio 25.6 12/08/16 04:23 Glucose 198 mg/dL (70-105) H 12/08/16 04:23 POC Glucose 216 MG/DL (70 - 105) H 12/08/16 06:55 Hemoglobin A1c % 9.0 % (4.0-6.0) H 12/01/16 18:25 Whole Bld Lactic Acid 2.84 mmol/L (0.60-1.99) H* 12/05/16 12:05 Uric Acid 11.6 mg/dL (2.3-6.6) H 12/03/16 05:35 Calcium 8.0 mg/dL (8.6-10.3) L 12/08/16 04:23 Magnesium 2.7 mg/dL (1.9-2.7) 12/03/16 05:35 Total Bilirubin 0.5 mg/dL (0.3-1.0) 12/08/16 04:23 AST 15 U/L (13-39) 12/08/16 04:23 ALT 6 U/L (7-52) L 12/08/16 04:23 Alkaline Phosphatase 280 U/L (34-104) H 12/08/16 04:23 Total Protein 4.0 gm/dL (6.0-8.3) L 12/08/16 04:23 Albumin 1.7 gm/dL (3.7-5.3) L 12/08/16 04:23 Globulin 2.3 gm/dL 12/08/16 04:23 Albumin/Globulin Ratio 0.7 (1.0-1.8) L 12/08/16 04:23 TSH 2.49 uIU/ml (0.34-5.60) 12/03/16 05:35 Urine Source SOTO PORT 12/02/16 14:56 Urine Color YELLOW 12/02/16 14:56 Urine Clarity HAZY (CLEAR) 12/02/16 14:56 Urine pH 8.0 (4.6 - 8.0) 12/02/16 14:56 Ur Specific [place] 1.015 (1.005-1.030) 12/02/16 14:56 Urine Protein 100 mg/dL (NEGATIVE) H 12/02/16 14:56 Urine Glucose (UA) 500 mg/dL (NEGATIVE) H 12/02/16 14:56 Urine Ketones NEGATIVE mg/dL (NEGATIVE) 12/02/16 14:56 Urine Blood MODERATE (NEGATIVE) H 12/02/16 14:56 Urine Nitrate POSITIVE (NEGATIVE) H 12/02/16 14:56 Urine Bilirubin NEGATIVE (NEGATIVE) 12/02/16 14:56 Urine Urobilinogen 0.2 E.U./dL (0.2 - 1.0) 12/02/16 14:56 Ur Leukocyte Esterase MODERATE (NEGATIVE) H 12/02/16 14:56 Urine RBC 5-10 /hpf (0-5) H 12/02/16 14:56 Urine WBC 50-100 /hpf (0-5) H 12/02/16 14:56 Ur Epithelial Cells FEW /lpf (FEW) 12/02/16 14:56 Triple Phos Crystals MODERATE /hpf (FEW) 12/02/16 14:56 Urine Bacteria MANY /hpf (NONE SEEN) 12/02/16 14:56 Urine Osmolality 488 mOsmol/kg 12/03/16 06:30 Ur Random Sodium 75 mmol/L 12/03/16 06:30 Urine Creatinine 49.0 mg/dl (28.0-217.0) 12/03/16 06:30 Blood Type O POSITIVE 12/08/16 04:23 Antibody Screen NEGATIVE 12/08/16 04:23 Crossmatch See Detail 12/08/16 04:23 - Physical Exam Vitals and I&O: Vital Signs Temp 98.6 F 12/08/16 04:00 Pulse 110 12/08/16 09:52 Resp 16 12/08/16 07:00 BP 117/59 12/08/16 07:00 Pulse Ox 95 12/08/16 09:52 Intake & Output 12/07/16 12/08/16 12/08/16 18:59 06:59 18:59 Intake Total 820 960 Output Total 670 650 Balance 150 310 Weight (lbs) 53.524 kg 55.656 kg Intake: Intake, IV Amount 250 200 Piperacillin Sodium/ 50 100 Tazobact 2.25 gm In Dextrose 5% 50 ml @ 100 mls/hr IV Q8H [facility] Rx#: [id number] metroNIDAZOLE 500mg/NS 200 100 100mL 500 mg In Premix Fluid 1 bag @ 100 mls/hr IV Q8H [facility] Rx#:[id number] Tube Feeding 450 660 Other 120 100 Output: Urine 650 550 Stool 20 100 Active Medications: Current Medications Acetaminophen (Tylenol) 650 mg PO Q6H PRN PRN Reason: Mild Pain or Fever >101 Stop: 01/31/17 11:18 Albuterol/Ipratropium (Duoneb Neb) 3 ml HHN Q6HRT [facility] Stop: 02/04/17 12:59 Last Admin: 12/08/16 08:13 Dose: 3 ml Albuterol/Ipratropium (Duoneb Neb) 3 ml HHN Q2HRT PRN PRN Reason: Wheezing Stop: 02/04/17 10:02 Last Admin: 12/06/16 10:23 Dose: 3 ml Bisacodyl (Dulcolax 5 Mg Ec Tab) 10 mg PO BID [facility] Stop: 01/31/17 16:59 Last Admin: 12/07/16 16:53 Dose: 10 mg Chlorhexidine Gluconate (Peridex) 15 ml MM 0800,2000 [facility] Stop: 02/03/17 19:59 Last Admin: 12/08/16 10:44 Dose: 15 ml Epoetin Esequiel (Epogen) 10,000 units SUBQ TuThSa [facility] Stop: 02/01/17 14:29 Last Admin: 12/06/16 17:01 Dose: 10,000 units Hydromorphone HCl (Dilaudid) 1 mg IVP Q6HR PRN PRN Reason: Pain (Moderate-Severe) Stop: 02/04/17 08:11 Last Admin: 12/08/16 02:17 Dose: 1 mg Piperacillin Sod/Tazobactam (Sod 2.25 gm/ Dextrose) 50 mls @ 100 mls/hr IV Q8H [facility] Stop: 02/03/17 10:59 Last Infusion: 12/08/16 04:05 Dose: Infused Metronidazole 500 mg/ (Miscellaneous) 100 mls @ 100 mls/hr IV Q8H [facility] Stop: 02/03/17 09:59 Last Infusion: 12/08/16 03:20 Dose: Infused Dextrose (D5w) 1,000 mls @ 50 mls/hr IV .Q20H [facility] Stop: 02/05/17 11:25 Last Admin: 12/07/16 13:56 Dose: 50 mls/hr Insulin Aspart (Novolog Insulin Sliding Scale) 0 units SUBQ ACHS [facility] PRN Reason: Protocol Stop: 01/31/17 07:29 Last Admin: 12/08/16 07:03 Dose: 5 units Insulin Detemir (Levemir Insulin) 10 units SUBQ HS [facility] PRN Reason: Protocol Stop: 02/03/17 20:59 Last Admin: 12/07/16 20:35 Dose: 10 unit Lactobacillus Rhamnosus (Culturelle) 1 each PO DAILY [facility] Stop: 02/07/17 08:59 Lorazepam (Ativan) 1 mg IVP Q8HR PRN; Protocol PRN Reason: AGITATION Stop: 02/04/17 19:42 Last Admin: 12/06/16 21:16 Dose: 1 mg Miscellaneous (Vte Chemical Prophylaxis Screen/ Admission) 1 ea PRN PRN PRN Reason: PROTOCOL Stop: 01/31/17 13:38 Miscellaneous (Clinical Monitoring) 1 ea MC DAILY PRN PRN Reason: RENAL Stop: 02/04/17 08:05 Miscellaneous (Probiotic Screen) 1 ea PRN PRN PRN Reason: PROTOCOL Stop: 02/06/17 09:59 Pantoprazole Sodium (Protonix) 40 mg IVP DAILY [facility] Stop: 02/01/17 08:59 Last Admin: 12/08/16 09:58 Dose: 40 mg Potassium Chloride (Potassium Chloride Elixir) 20 meq GT DAILY [facility] Stop: 02/05/17 09:14 Last Admin: 12/08/16 09:59 Dose: 20 meq Sodium Bicarbonate (Sodium Bicarbonate) 650 mg GT TID [facility] PRN Reason: Protocol Stop: 02/05/17 20:59 Last Admin: 12/08/16 09:58 Dose: 650 mg General: No acute distress, Other (Intubated.) HEENT: Atraumatic Neck: Supple Cardiovascular: Regular rate Lungs: Clear to auscultation, Other (few rhonchi) Abdomen: Bowel sounds, Soft, Other (PEG in place, Colostomy in place) Extremities: Other (No edema), no Edema Neurological: Sensation intact, Other (Non ambulatory) Skin: no Significant lesion Psych/Mental Status: Mood NL, Other (Awake, alert, restless, intubated) - Procedures Procedures: Procedures Procedure Code Date BYPASS DESCENDING COLON TO CUTANEOUS, OPEN APPROACH [id number] 12/02/16 COLOSTOMY 59383 12/02/16 CHAGO BONE 20 SQ CM/< [id number] 12/02/16 CHAGO MUSC/FASCIA 20 SQ CM/< [id number] 10/24/16 CHAGO SUBQ TISSUE 20 SQ CM/< [id number] 12/02/16 EXCISION OF L FOOT SUBCU/FASCIA, OPEN APPROACH [id number] 12/02/16 EXCISION OF LEFT HIP MUSCLE, OPEN APPROACH [id number] 10/24/16 EXCISION OF LEFT PELVIC BONE, OPEN APPROACH [id number] 12/02/16 EXCISION OF R FOOT SUBCU/FASCIA, OPEN APPROACH [id number] 12/02/16 RESPIRATORY VENTILATION, 24-96 CONSECUTIVE HOURS [id number] 12/02/16 Assessment/Plan - Problem List Patient Problems: All Active Problems POOR ORAL INTAKE AND SWALLOWING (Acute) SACRAL AND BILATERAL BUTTOCK SKIN ULCERS (Acute) - Assessment Assessment: Current Active Problems Problem Status Onset POOR ORAL INTAKE AND SWALLOWING Acute Patient has been calm. non verbal, in no acute distress. Intubated. Na, Creatinine improving. Colostomy in place. Hgb is low today. Wheaning proxcess continue. Dx: Hypernatremia, AKF, Chronic anemia, Sacral decubitus ulcer stage IV, HTN, DM, Dementia, anemia. - Plan Plan: PEG in place, fedding started. Already seen by [facility], GI, and surgery. NA, and Creatinine improving. Case discussed with family. One unit of blood will be transfused today. Will continue to monitor. Nutritional Asmnt/Malnutr-PDOC - Dietary Evaluation Malnutrition Findings (Please click <Entered> for more info): Nutritional Asmnt/Malnutrition Start: 12/02/16 14: 44 Text: Status: Complete Freq: Document 12/02/16 14:44 GSUN (Rec: 12/02/16 15:19 [facility] [id number]) Nutritional Asmnt/Malnutrition Patient General Information Nutritional Screening Consult Diagnosis AKF, sacral decubitus ulcer stage IV, HTN, DM, dementia, chronic anemia Pertinent Medical Hx/Surgical Hx CAD, CVA, dementia, psychosis, muscle atrophy, AKF, DM, decubitus ulcer stage IV Subjective Information 81 year old female from SNF. RD consult for low Elliot and elevated blood glucose. Pt was awake, unable to provide nutrition hx. Family at bedside, spoke to family and RN Loren regarding nutrition plan of care, PEG placement consent obtained. Family has no other questions at this time. 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 Per nursing adm notes , 4-5lb wt loss in 2 weeks. Per family, unaware of UBW, aware of recent wt loss, stated pt stopped eating ~3-4 days ago. Loose skin, moderate to severe muslce fat wasting to chest and clavicles. Current Diet Order/ Nutrition Support NPO Pertinent Medications Dulcolax, D5-0.45ns, Novolog Pertinent Labs 12/01: A1c 9H 12/02: sodium 173H, potassium 5.3H, BUN 169H, creatinie 5.8H , glucose 238H, calcium 10.8H Nutritional Hx/Data Height 1.52 m Height (Calculated Centimeters) 152.4 Current Weight (lbs) 43.545 kg Weight (Calculated Kilograms) 43.5 Weight (Calculated Grams) 15179.9 [place]nel[place] Body Weight 100 Recent Weight Change Yes Weight Status Approriate GI Symptoms Usual diet at home [facility]: pureed, ALISE , [facility] Skin Integrity/Comment: Elliot 11. Sacral decubitus ulcer stage IV. Estimated Nutritional Goals Calories/Kcals/Kg IBW 100lb/45.5kg Kcals Calculated 1365-1593kcal (30-35kcal/kg) Protein Calculated 68-73g (1.4-1.6g/kg, ulcer vs renal, ?HD) Fluid: ml Per MD Nutritional Problem 3. Problem Problem Altered nutrition related laboratory values related to Etiology DM aeb Signs/Symptoms: A1c 9H, glucose 238H 2. Problem Problem Increased kcal and prot needs related to Etiology skin integrity, recent weight loss aeb Signs/Symptoms: Sacral decubitus ulcer stage IV, wt loss 4-5lb in 2 weeks per nursing adm notes, moderate to seevre muslce/fat wasting to chest and clavicles 1. Problem Problem Impaired nutrient utilization related to Etiology acute kidney injury aeb Signs/Symptoms: potassium 5.3H, BUN 169H, creatinie 5.8H, calcium 10.8H Intervention/Recommendation Comments 1. Discussed enteral nutrition with family. Family has no further questions at this time . 2. When medically feasible to initiate feeding, recommend Novasource Renal at 30ml/hr x 24hrs, providing 720ml total volume, 1440kcal, 65g protein. Initiate at 10ml/hr for first 24 hrs, monitor for refeeding syndrome and tolerance, increase by 5ml/hr q12hrs until goal. 3. Recommend 1 packet Arginaid daily via tube for wound healing. 4. Monitor weight closely. Hx 4-5lb wt loss in 2 weeks per nursing adm note. Expected Outcomes/Goals Expected Outcomes/Goals 1. Pt to meet at least 75% of estimated nutritinoal eneds on tube feeding with tolerance.
--- NOTE | 2016-12-08 10:48 | General Progress Note ---
Subjective - Review of Systems Subjective: Patient is sleeping but arousable, non verbal. Objective - Results Result Diagrams: 12/08/16 04:23 12/08/16 04:23 Recent Labs: Laboratory Last Values WBC 10.7 Th/cmm (4.8-10.8) 12/08/16 04:23 Corrected WBC (auto) 8.8 Th/cmm (4.8-10.8) 12/01/16 18:25 RBC 2.65 Mil/cmm (3.80-5.20) L 12/08/16 04:23 Hgb 7.6 gm/dL (12-16) L* D 12/08/16 04:23 Hct 23.0 % (41.0-60) L D 12/08/16 04:23 MCV 87.0 fl (81-100) 12/08/16 04:23 MCH 28.9 pg (27.0-31.0) 12/08/16 04:23 MCHC Differential 33.2 pg (28.0-36.0) 12/08/16 04:23 RDW 19.3 % (11.5-20.0) 12/08/16 04:23 Plt Count 87 Th/cmm (150-400) L 12/08/16 04:23 MPV 13.4 fl 12/08/16 04:23 Neutrophils % 83.1 % (40.0-80.0) H 12/07/16 04:25 Band Neutrophils % 2 % (0-10) 12/08/16 04:23 Lymphocytes % 10.5 % (20.0-50.0) L 12/07/16 04:25 Monocytes % 4.7 % (2.0-10.0) 12/07/16 04:25 Eosinophils % 1.7 % (0.0-5.0) 12/07/16 04:25 Basophils % 0.0 % (0.0-2.0) 12/07/16 04:25 Neutrophils (Manual) 78 % (40-80) 12/08/16 04:23 Lymphocytes 15 % (20-50) L 12/08/16 04:23 Monocytes 4 % (2-10) 12/08/16 04:23 Eosinophils 1 % (0-5) 12/08/16 04:23 Nucleated RBCs 5.0 % (0-0) H 12/01/16 18:25 Atypical Lymphocytes 1 % 12/01/16 18:25 Platelet Estimate SLIGHT DECREASED (NORMAL) 12/08/16 04:23 Platelet Morphology NORMAL (NORMAL) 12/01/16 18:25 Anisocytosis 2+ 12/03/16 05:35 RBC Morph Micro Appear ABNORMAL (NORMAL) 12/01/16 18:25 Eos Smear Source URINE 12/03/16 06:30 Eos Smear Total Cells NONE SEEN (NONE SEEN) 12/03/16 06:30 PT 11.2 SECONDS (9.5-11.5) 12/03/16 05:35 INR 1.08 (0.5-1.4) 12/03/16 05:35 PTT (Actin FS) 19.6 SECONDS (26.0-38.0) L 12/01/16 18:25 Specimen Source Arterial 12/08/16 09:12 Sample Site Left Radial 12/08/16 09:12 pH 7.40 (7.35-7.45) 12/08/16 09:12 pCO2 25.0 mmHg (35.0-45.0) L 12/08/16 09:12 pO2 130.0 mmHg (80.0-100.0) H 12/08/16 09:12 HCO3 19.0 mEq/L (20.0-26.0) L 12/08/16 09:12 Base Excess -7.7 mEq/L (-3.0-3.0) L 12/08/16 09:12 O2 Saturation 99.0 % (92.0-100.0) 12/08/16 09:12 Isidro Test YES 12/08/16 09:12 Vent Rate 6 12/08/16 09:12 Inspired O2 30 12/08/16 09:12 Tidal Volume 450 12/08/16 09:12 PEEP 5 12/08/16 09:12 Pressure (ins/psv/peep) 10 12/08/16 09:12 Critical Value SUSANNAH GARCIA 12/08/16 09:12 Sodium 146 mEq/L (136-145) H 12/08/16 04:23 Potassium 3.7 mEq/L (3.5-5.1) 12/08/16 04:23 Chloride 120 mEq/L (98-107) H 12/08/16 04:23 Carbon Dioxide 17.2 mEq/L (21.0-31.0) L 12/08/16 04:23 Anion Gap 12.5 (7.0-16.0) 12/08/16 04:23 BUN 69 mg/dL (7-25) H 12/08/16 04:23 Creatinine 2.7 mg/dL (0.6-1.2) H 12/08/16 04:23 Est GFR ( Amer) TNP 12/08/16 04:23 Est GFR (Non-Af Amer) TNP 12/08/16 04:23 BUN/Creatinine Ratio 25.6 12/08/16 04:23 Glucose 198 mg/dL (70-105) H 12/08/16 04:23 POC Glucose 216 MG/DL (70 - 105) H 12/08/16 06:55 Hemoglobin A1c % 9.0 % (4.0-6.0) H 12/01/16 18:25 Whole Bld Lactic Acid 2.84 mmol/L (0.60-1.99) H* 12/05/16 12:05 Uric Acid 11.6 mg/dL (2.3-6.6) H 12/03/16 05:35 Calcium 8.0 mg/dL (8.6-10.3) L 12/08/16 04:23 Magnesium 2.7 mg/dL (1.9-2.7) 12/03/16 05:35 Total Bilirubin 0.5 mg/dL (0.3-1.0) 12/08/16 04:23 AST 15 U/L (13-39) 12/08/16 04:23 ALT 6 U/L (7-52) L 12/08/16 04:23 Alkaline Phosphatase 280 U/L (34-104) H 12/08/16 04:23 Total Protein 4.0 gm/dL (6.0-8.3) L 12/08/16 04:23 Albumin 1.7 gm/dL (3.7-5.3) L 12/08/16 04:23 Globulin 2.3 gm/dL 12/08/16 04:23 Albumin/Globulin Ratio 0.7 (1.0-1.8) L 12/08/16 04:23 TSH 2.49 uIU/ml (0.34-5.60) 12/03/16 05:35 Urine Source SOTO PORT 12/02/16 14:56 Urine Color YELLOW 12/02/16 14:56 Urine Clarity HAZY (CLEAR) 12/02/16 14:56 Urine pH 8.0 (4.6 - 8.0) 12/02/16 14:56 Ur Specific [place] 1.015 (1.005-1.030) 12/02/16 14:56 Urine Protein 100 mg/dL (NEGATIVE) H 12/02/16 14:56 Urine Glucose (UA) 500 mg/dL (NEGATIVE) H 12/02/16 14:56 Urine Ketones NEGATIVE mg/dL (NEGATIVE) 12/02/16 14:56 Urine Blood MODERATE (NEGATIVE) H 12/02/16 14:56 Urine Nitrate POSITIVE (NEGATIVE) H 12/02/16 14:56 Urine Bilirubin NEGATIVE (NEGATIVE) 12/02/16 14:56 Urine Urobilinogen 0.2 E.U./dL (0.2 - 1.0) 12/02/16 14:56 Ur Leukocyte Esterase MODERATE (NEGATIVE) H 12/02/16 14:56 Urine RBC 5-10 /hpf (0-5) H 12/02/16 14:56 Urine WBC 50-100 /hpf (0-5) H 12/02/16 14:56 Ur Epithelial Cells FEW /lpf (FEW) 12/02/16 14:56 Triple Phos Crystals MODERATE /hpf (FEW) 12/02/16 14:56 Urine Bacteria MANY /hpf (NONE SEEN) 12/02/16 14:56 Urine Osmolality 488 mOsmol/kg 12/03/16 06:30 Ur Random Sodium 75 mmol/L 12/03/16 06:30 Urine Creatinine 49.0 mg/dl (28.0-217.0) 12/03/16 06:30 Blood Type O POSITIVE 12/08/16 04:23 Antibody Screen NEGATIVE 12/08/16 04:23 Crossmatch See Detail 12/08/16 04:23 - Physical Exam Vitals and I&O: Vital Signs Temp 98.6 F 12/08/16 04:00 Pulse 110 12/08/16 09:52 Resp 16 12/08/16 07:00 BP 117/59 12/08/16 07:00 Pulse Ox 95 12/08/16 09:52 Intake & Output 12/07/16 12/08/16 12/08/16 18:59 06:59 18:59 Intake Total 820 960 Output Total 670 650 Balance 150 310 Weight (lbs) 53.524 kg 55.656 kg Intake: Intake, IV Amount 250 200 Piperacillin Sodium/ 50 100 Tazobact 2.25 gm In Dextrose 5% 50 ml @ 100 mls/hr IV Q8H ON LICENSE OF [facility] Rx#: [id number] metroNIDAZOLE 500mg/NS 200 100 100mL 500 mg In Premix Fluid 1 bag @ 100 mls/hr IV Q8H ON LICENSE OF [facility] Rx#:[id number] Tube Feeding 450 660 Other 120 100 Output: Urine 650 550 Stool 20 100 Active Medications: Current Medications Acetaminophen (Tylenol) 650 mg PO Q6H PRN PRN Reason: Mild Pain or Fever >101 Stop: 01/31/17 11:18 Albuterol/Ipratropium (Duoneb Neb) 3 ml HHN Q6HRT ON LICENSE OF [facility] Stop: 02/04/17 12:59 Last Admin: 12/08/16 08:13 Dose: 3 ml Albuterol/Ipratropium (Duoneb Neb) 3 ml HHN Q2HRT PRN PRN Reason: Wheezing Stop: 02/04/17 10:02 Last Admin: 12/06/16 10:23 Dose: 3 ml Bisacodyl (Dulcolax 5 Mg Ec Tab) 10 mg PO BID ON LICENSE OF [facility] Stop: 01/31/17 16:59 Last Admin: 12/07/16 16:53 Dose: 10 mg Chlorhexidine Gluconate (Peridex) 15 ml MM 0800,2000 ON LICENSE OF [facility] Stop: 02/03/17 19:59 Last Admin: 12/08/16 10:44 Dose: 15 ml Epoetin Esequiel (Epogen) 10,000 units SUBQ TuThSa ON LICENSE OF [facility] Stop: 02/01/17 14:29 Last Admin: 12/06/16 17:01 Dose: 10,000 units Hydromorphone HCl (Dilaudid) 1 mg IVP Q6HR PRN PRN Reason: Pain (Moderate-Severe) Stop: 02/04/17 08:11 Last Admin: 12/08/16 02:17 Dose: 1 mg Piperacillin Sod/Tazobactam (Sod 2.25 gm/ Dextrose) 50 mls @ 100 mls/hr IV Q8H ON LICENSE OF [facility] Stop: 02/03/17 10:59 Last Infusion: 12/08/16 04:05 Dose: Infused Metronidazole 500 mg/ (Miscellaneous) 100 mls @ 100 mls/hr IV Q8H BRIELLE Stop: 02/03/17 09:59 Last Infusion: 12/08/16 03:20 Dose: Infused Dextrose (D5w) 1,000 mls @ 50 mls/hr IV .Q20H BRIELLE Stop: 02/05/17 11:25 Last Admin: 12/07/16 13:56 Dose: 50 mls/hr Insulin Aspart (Novolog Insulin Sliding Scale) 0 units SUBQ ACHS BRIELLE PRN Reason: Protocol Stop: 01/31/17 07:29 Last Admin: 12/08/16 07:03 Dose: 5 units Insulin Detemir (Levemir Insulin) 10 units SUBQ HS BRIELLE PRN Reason: Protocol Stop: 02/03/17 20:59 Last Admin: 12/07/16 20:35 Dose: 10 unit Lactobacillus Rhamnosus (Culturelle) 1 each PO DAILY ON LICENSE OF [facility] Stop: 02/07/17 08:59 Lorazepam (Ativan) 1 mg IVP Q8HR PRN; Protocol PRN Reason: AGITATION Stop: 02/04/17 19:42 Last Admin: 12/06/16 21:16 Dose: 1 mg Miscellaneous (Vte Chemical Prophylaxis Screen/ Admission) 1 ea PRN PRN PRN Reason: PROTOCOL Stop: 01/31/17 13:38 Miscellaneous (Clinical Monitoring) 1 ea MC DAILY PRN PRN Reason: RENAL Stop: 02/04/17 08:05 Miscellaneous (Probiotic Screen) 1 ea PRN PRN PRN Reason: PROTOCOL Stop: 02/06/17 09:59 Pantoprazole Sodium (Protonix) 40 mg IVP DAILY BRIELLE Stop: 02/01/17 08:59 Last Admin: 12/08/16 09:58 Dose: 40 mg Potassium Chloride (Potassium Chloride Elixir) 20 meq GT DAILY BRIELLE Stop: 02/05/17 09:14 Last Admin: 12/08/16 09:59 Dose: 20 meq Sodium Bicarbonate (Sodium Bicarbonate) 650 mg GT TID BRIELLE PRN Reason: Protocol Stop: 02/05/17 20:59 Last Admin: 12/08/16 09:58 Dose: 650 mg General: No acute distress, Other (Intubated.) HEENT: Atraumatic Neck: Supple Cardiovascular: Regular rate Lungs: Clear to auscultation, Other (few rhonchi) Abdomen: Bowel sounds, Soft, Other (PEG in place, Colostomy in place) Extremities: Other (No edema), no Edema Neurological: Sensation intact, Other (Non ambulatory) Skin: no Significant lesion Psych/Mental Status: Mood NL, Other (Awake, alert, restless, intubated) - Procedures Procedures: Procedures Procedure Code Date BYPASS DESCENDING COLON TO CUTANEOUS, OPEN APPROACH [id number] 12/02/16 COLOSTOMY 88290 12/02/16 CHAGO BONE 20 SQ CM/< [id number] 12/02/16 CHAGO MUSC/FASCIA 20 SQ CM/< [id number] 10/24/16 CHAGO SUBQ TISSUE 20 SQ CM/< 61950 12/02/16 EXCISION OF L FOOT SUBCU/FASCIA, OPEN APPROACH [id number] 12/02/16 EXCISION OF LEFT HIP MUSCLE, OPEN APPROACH 8MSG5MG 10/24/16 EXCISION OF LEFT PELVIC BONE, OPEN APPROACH [id number] 12/02/16 EXCISION OF R FOOT SUBCU/FASCIA, OPEN APPROACH [id number] 12/02/16 RESPIRATORY VENTILATION, 24-96 CONSECUTIVE HOURS [id number] 12/02/16 Assessment/Plan - Problem List Patient Problems: All Active Problems POOR ORAL INTAKE AND SWALLOWING (Acute) SACRAL AND BILATERAL BUTTOCK SKIN ULCERS (Acute) - Assessment Assessment: Current Active Problems Problem Status Onset POOR ORAL INTAKE AND SWALLOWING Acute Patient has been calm. non verbal, in no acute distress. Intubated. Na, Creatinine improving. Colostomy in place. Hgb is low today. Wheaning proxcess continue. Dx: Hypernatremia, AKF, Chronic anemia, Sacral decubitus ulcer stage IV, HTN, DM, Dementia, anemia. - Plan Plan: PEG in place, fedding started. Already seen by Nepro, GI, and surgery. NA, and Creatinine improving. Case discussed with family. One unit of blood will be transfused today. Will continue to monitor. Nutritional Asmnt/Malnutr-PDOC - Dietary Evaluation Malnutrition Findings (Please click <Entered> for more info): Nutritional Asmnt/Malnutrition Start: 12/02/16 14: 44 Text: Status: Complete Freq: Document 12/02/16 14:44 GSUN (Rec: 12/02/16 15:19 [facility] [id number]) Nutritional Asmnt/Malnutrition Patient General Information Nutritional Screening Consult Diagnosis AKF, sacral decubitus ulcer stage IV, HTN, DM, dementia, chronic anemia Pertinent Medical Hx/Surgical Hx CAD, CVA, dementia, psychosis, muscle atrophy, AKF, DM, decubitus ulcer stage IV Subjective Information 81 year old female from SNF. RD consult for low Elliot and elevated blood glucose. Pt was awake, unable to provide nutrition hx. Family at bedside, spoke to family and RN Loren regarding nutrition plan of care, PEG placement consent obtained. Family has no other questions at this time. 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 Per nursing adm notes , 4-5lb wt loss in 2 weeks. Per family, unaware of UBW, aware of recent wt loss, stated pt stopped eating ~3-4 days ago. Loose skin, moderate to severe muslce fat wasting to chest and clavicles. Current Diet Order/ Nutrition Support NPO Pertinent Medications Dulcolax, D5-0.45ns, Novolog Pertinent Labs 12/01: A1c 9H 12/02: sodium 173H, potassium 5.3H, BUN 169H, creatinie 5.8H , glucose 238H, calcium 10.8H Nutritional Hx/Data Height 1.52 m Height (Calculated Centimeters) 152.4 Current Weight (lbs) 43.545 kg Weight (Calculated Kilograms) 43.5 Weight (Calculated Grams) 45263.9 [place] Body Weight 100 Recent Weight Change Yes Weight Status Approriate GI Symptoms Usual diet at home [facility]: pureed, ALISE , [facility] Skin Integrity/Comment: Elliot 11. Sacral decubitus ulcer stage IV. Estimated Nutritional Goals Calories/Kcals/Kg IBW 100lb/45.5kg Kcals Calculated 1365-1593kcal (30-35kcal/kg) Protein Calculated 68-73g (1.4-1.6g/kg, ulcer vs renal, ?HD) Fluid: ml Per MD Nutritional Problem 3. Problem Problem Altered nutrition related laboratory values related to Etiology DM aeb Signs/Symptoms: A1c 9H, glucose 238H 2. Problem Problem Increased kcal and prot needs related to Etiology skin integrity, recent weight loss aeb Signs/Symptoms: Sacral decubitus ulcer stage IV, wt loss 4-5lb in 2 weeks per nursing adm notes, moderate to seevre muslce/fat wasting to chest and clavicles 1. Problem Problem Impaired nutrient utilization related to Etiology acute kidney injury aeb Signs/Symptoms: potassium 5.3H, BUN 169H, creatinie 5.8H, calcium 10.8H Intervention/Recommendation Comments 1. Discussed enteral nutrition with family. Family has no further questions at this time . 2. When medically feasible to initiate feeding, recommend Novasource Renal at 30ml/hr x 24hrs, providing 720ml total volume, 1440kcal, 65g protein. Initiate at 10ml/hr for first 24 hrs, monitor for refeeding syndrome and tolerance, increase by 5ml/hr q12hrs until goal. 3. Recommend 1 packet Arginaid daily via tube for wound healing. 4. Monitor weight closely. Hx 4-5lb wt loss in 2 weeks per nursing adm note. Expected Outcomes/Goals Expected Outcomes/Goals 1. Pt to meet at least 75% of estimated nutritinoal eneds on tube feeding with tolerance.
--- NOTE | 2016-12-08 10:48 | General Progress Note ---
Subjective - Review of Systems Subjective: Patient is sleeping but arousable, non verbal. Objective - Results Result Diagrams: 12/08/16 04:23 12/08/16 04:23 Recent Labs: Laboratory Last Values WBC 10.7 Th/cmm (4.8-10.8) 12/08/16 04:23 Corrected WBC (auto) 8.8 Th/cmm (4.8-10.8) 12/01/16 18:25 RBC 2.65 Mil/cmm (3.80-5.20) L 12/08/16 04:23 Hgb 7.6 gm/dL (12-16) L* D 12/08/16 04:23 Hct 23.0 % (41.0-60) L D 12/08/16 04:23 MCV 87.0 fl (81-100) 12/08/16 04:23 MCH 28.9 pg (27.0-31.0) 12/08/16 04:23 MCHC Differential 33.2 pg (28.0-36.0) 12/08/16 04:23 RDW 19.3 % (11.5-20.0) 12/08/16 04:23 Plt Count 87 Th/cmm (150-400) L 12/08/16 04:23 MPV 13.4 fl 12/08/16 04:23 Neutrophils % 83.1 % (40.0-80.0) H 12/07/16 04:25 Band Neutrophils % 2 % (0-10) 12/08/16 04:23 Lymphocytes % 10.5 % (20.0-50.0) L 12/07/16 04:25 Monocytes % 4.7 % (2.0-10.0) 12/07/16 04:25 Eosinophils % 1.7 % (0.0-5.0) 12/07/16 04:25 Basophils % 0.0 % (0.0-2.0) 12/07/16 04:25 Neutrophils (Manual) 78 % (40-80) 12/08/16 04:23 Lymphocytes 15 % (20-50) L 12/08/16 04:23 Monocytes 4 % (2-10) 12/08/16 04:23 Eosinophils 1 % (0-5) 12/08/16 04:23 Nucleated RBCs 5.0 % (0-0) H 12/01/16 18:25 Atypical Lymphocytes 1 % 12/01/16 18:25 Platelet Estimate SLIGHT DECREASED (NORMAL) 12/08/16 04:23 Platelet Morphology NORMAL (NORMAL) 12/01/16 18:25 Anisocytosis 2+ 12/03/16 05:35 RBC Morph Micro Appear ABNORMAL (NORMAL) 12/01/16 18:25 Eos Smear Source URINE 12/03/16 06:30 Eos Smear Total Cells NONE SEEN (NONE SEEN) 12/03/16 06:30 PT 11.2 SECONDS (9.5-11.5) 12/03/16 05:35 INR 1.08 (0.5-1.4) 12/03/16 05:35 PTT (Actin FS) 19.6 SECONDS (26.0-38.0) L 12/01/16 18:25 Specimen Source Arterial 12/08/16 09:12 Sample Site Left Radial 12/08/16 09:12 pH 7.40 (7.35-7.45) 12/08/16 09:12 pCO2 25.0 mmHg (35.0-45.0) L 12/08/16 09:12 pO2 130.0 mmHg (80.0-100.0) H 12/08/16 09:12 HCO3 19.0 mEq/L (20.0-26.0) L 12/08/16 09:12 Base Excess -7.7 mEq/L (-3.0-3.0) L 12/08/16 09:12 O2 Saturation 99.0 % (92.0-100.0) 12/08/16 09:12 Isidro Test YES 12/08/16 09:12 Vent Rate 6 12/08/16 09:12 Inspired O2 30 12/08/16 09:12 Tidal Volume 450 12/08/16 09:12 PEEP 5 12/08/16 09:12 Pressure (ins/psv/peep) 10 12/08/16 09:12 Critical Value SUSANNAH GARCIA 12/08/16 09:12 Sodium 146 mEq/L (136-145) H 12/08/16 04:23 Potassium 3.7 mEq/L (3.5-5.1) 12/08/16 04:23 Chloride 120 mEq/L (98-107) H 12/08/16 04:23 Carbon Dioxide 17.2 mEq/L (21.0-31.0) L 12/08/16 04:23 Anion Gap 12.5 (7.0-16.0) 12/08/16 04:23 BUN 69 mg/dL (7-25) H 12/08/16 04:23 Creatinine 2.7 mg/dL (0.6-1.2) H 12/08/16 04:23 Est GFR ( Amer) TNP 12/08/16 04:23 Est GFR (Non-Af Amer) TNP 12/08/16 04:23 BUN/Creatinine Ratio 25.6 12/08/16 04:23 Glucose 198 mg/dL (70-105) H 12/08/16 04:23 POC Glucose 216 MG/DL (70 - 105) H 12/08/16 06:55 Hemoglobin A1c % 9.0 % (4.0-6.0) H 12/01/16 18:25 Whole Bld Lactic Acid 2.84 mmol/L (0.60-1.99) H* 12/05/16 12:05 Uric Acid 11.6 mg/dL (2.3-6.6) H 12/03/16 05:35 Calcium 8.0 mg/dL (8.6-10.3) L 12/08/16 04:23 Magnesium 2.7 mg/dL (1.9-2.7) 12/03/16 05:35 Total Bilirubin 0.5 mg/dL (0.3-1.0) 12/08/16 04:23 AST 15 U/L (13-39) 12/08/16 04:23 ALT 6 U/L (7-52) L 12/08/16 04:23 Alkaline Phosphatase 280 U/L (34-104) H 12/08/16 04:23 Total Protein 4.0 gm/dL (6.0-8.3) L 12/08/16 04:23 Albumin 1.7 gm/dL (3.7-5.3) L 12/08/16 04:23 Globulin 2.3 gm/dL 12/08/16 04:23 Albumin/Globulin Ratio 0.7 (1.0-1.8) L 12/08/16 04:23 TSH 2.49 uIU/ml (0.34-5.60) 12/03/16 05:35 Urine Source SOTO PORT 12/02/16 14:56 Urine Color YELLOW 12/02/16 14:56 Urine Clarity HAZY (CLEAR) 12/02/16 14:56 Urine pH 8.0 (4.6 - 8.0) 12/02/16 14:56 Ur Specific [place] 1.015 (1.005-1.030) 12/02/16 14:56 Urine Protein 100 mg/dL (NEGATIVE) H 12/02/16 14:56 Urine Glucose (UA) 500 mg/dL (NEGATIVE) H 12/02/16 14:56 Urine Ketones NEGATIVE mg/dL (NEGATIVE) 12/02/16 14:56 Urine Blood MODERATE (NEGATIVE) H 12/02/16 14:56 Urine Nitrate POSITIVE (NEGATIVE) H 12/02/16 14:56 Urine Bilirubin NEGATIVE (NEGATIVE) 12/02/16 14:56 Urine Urobilinogen 0.2 E.U./dL (0.2 - 1.0) 12/02/16 14:56 Ur Leukocyte Esterase MODERATE (NEGATIVE) H 12/02/16 14:56 Urine RBC 5-10 /hpf (0-5) H 12/02/16 14:56 Urine WBC 50-100 /hpf (0-5) H 12/02/16 14:56 Ur Epithelial Cells FEW /lpf (FEW) 12/02/16 14:56 Triple Phos Crystals MODERATE /hpf (FEW) 12/02/16 14:56 Urine Bacteria MANY /hpf (NONE SEEN) 12/02/16 14:56 Urine Osmolality 488 mOsmol/kg 12/03/16 06:30 Ur Random Sodium 75 mmol/L 12/03/16 06:30 Urine Creatinine 49.0 mg/dl (28.0-217.0) 12/03/16 06:30 Blood Type O POSITIVE 12/08/16 04:23 Antibody Screen NEGATIVE 12/08/16 04:23 Crossmatch See Detail 12/08/16 04:23 - Physical Exam Vitals and I&O: Vital Signs Temp 98.6 F 12/08/16 04:00 Pulse 110 12/08/16 09:52 Resp 16 12/08/16 07:00 BP 117/59 12/08/16 07:00 Pulse Ox 95 12/08/16 09:52 Intake & Output 12/07/16 12/08/16 12/08/16 18:59 06:59 18:59 Intake Total 820 960 Output Total 670 650 Balance 150 310 Weight (lbs) 53.524 kg 55.656 kg Intake: Intake, IV Amount 250 200 Piperacillin Sodium/ 50 100 Tazobact 2.25 gm In Dextrose 5% 50 ml @ 100 mls/hr IV Q8H [facility] Rx#: [id number] metroNIDAZOLE 500mg/NS 200 100 100mL 500 mg In Premix Fluid 1 bag @ 100 mls/hr IV Q8H [facility] Rx#:[id number] Tube Feeding 450 660 Other 120 100 Output: Urine 650 550 Stool 20 100 Active Medications: Current Medications Acetaminophen (Tylenol) 650 mg PO Q6H PRN PRN Reason: Mild Pain or Fever >101 Stop: 01/31/17 11:18 Albuterol/Ipratropium (Duoneb Neb) 3 ml HHN Q6HRT [facility] Stop: 02/04/17 12:59 Last Admin: 12/08/16 08:13 Dose: 3 ml Albuterol/Ipratropium (Duoneb Neb) 3 ml HHN Q2HRT PRN PRN Reason: Wheezing Stop: 02/04/17 10:02 Last Admin: 12/06/16 10:23 Dose: 3 ml Bisacodyl (Dulcolax 5 Mg Ec Tab) 10 mg PO BID [facility] Stop: 01/31/17 16:59 Last Admin: 12/07/16 16:53 Dose: 10 mg Chlorhexidine Gluconate (Peridex) 15 ml MM 0800,2000 [facility] Stop: 02/03/17 19:59 Last Admin: 12/08/16 10:44 Dose: 15 ml Epoetin Esequiel (Epogen) 10,000 units SUBQ TuThSa [facility] Stop: 02/01/17 14:29 Last Admin: 12/06/16 17:01 Dose: 10,000 units Hydromorphone HCl (Dilaudid) 1 mg IVP Q6HR PRN PRN Reason: Pain (Moderate-Severe) Stop: 02/04/17 08:11 Last Admin: 12/08/16 02:17 Dose: 1 mg Piperacillin Sod/Tazobactam (Sod 2.25 gm/ Dextrose) 50 mls @ 100 mls/hr IV Q8H [facility] Stop: 02/03/17 10:59 Last Infusion: 12/08/16 04:05 Dose: Infused Metronidazole 500 mg/ (Miscellaneous) 100 mls @ 100 mls/hr IV Q8H [facility] Stop: 02/03/17 09:59 Last Infusion: 12/08/16 03:20 Dose: Infused Dextrose (D5w) 1,000 mls @ 50 mls/hr IV .Q20H [facility] Stop: 02/05/17 11:25 Last Admin: 12/07/16 13:56 Dose: 50 mls/hr Insulin Aspart (Novolog Insulin Sliding Scale) 0 units SUBQ ACHS [facility] PRN Reason: Protocol Stop: 01/31/17 07:29 Last Admin: 12/08/16 07:03 Dose: 5 units Insulin Detemir (Levemir Insulin) 10 units SUBQ HS [facility] PRN Reason: Protocol Stop: 02/03/17 20:59 Last Admin: 12/07/16 20:35 Dose: 10 unit Lactobacillus Rhamnosus (Culturelle) 1 each PO DAILY [facility] Stop: 02/07/17 08:59 Lorazepam (Ativan) 1 mg IVP Q8HR PRN; Protocol PRN Reason: AGITATION Stop: 02/04/17 19:42 Last Admin: 12/06/16 21:16 Dose: 1 mg Miscellaneous (Vte Chemical Prophylaxis Screen/ Admission) 1 ea PRN PRN PRN Reason: PROTOCOL Stop: 01/31/17 13:38 Miscellaneous (Clinical Monitoring) 1 ea MC DAILY PRN PRN Reason: RENAL Stop: 02/04/17 08:05 Miscellaneous (Probiotic Screen) 1 ea PRN PRN PRN Reason: PROTOCOL Stop: 02/06/17 09:59 Pantoprazole Sodium (Protonix) 40 mg IVP DAILY [facility] Stop: 02/01/17 08:59 Last Admin: 12/08/16 09:58 Dose: 40 mg Potassium Chloride (Potassium Chloride Elixir) 20 meq GT DAILY [facility] Stop: 02/05/17 09:14 Last Admin: 12/08/16 09:59 Dose: 20 meq Sodium Bicarbonate (Sodium Bicarbonate) 650 mg GT TID [facility] PRN Reason: Protocol Stop: 02/05/17 20:59 Last Admin: 12/08/16 09:58 Dose: 650 mg General: No acute distress, Other (Intubated.) HEENT: Atraumatic Neck: Supple Cardiovascular: Regular rate Lungs: Clear to auscultation, Other (few rhonchi) Abdomen: Bowel sounds, Soft, Other (PEG in place, Colostomy in place) Extremities: Other (No edema), no Edema Neurological: Sensation intact, Other (Non ambulatory) Skin: no Significant lesion Psych/Mental Status: Mood NL, Other (Awake, alert, restless, intubated) - Procedures Procedures: Procedures Procedure Code Date BYPASS DESCENDING COLON TO CUTANEOUS, OPEN APPROACH [id number] 12/02/16 COLOSTOMY 86491 12/02/16 CHAGO BONE 20 SQ CM/< 19050 12/02/16 CHAGO MUSC/FASCIA 20 SQ CM/< 42742 10/24/16 CHAGO SUBQ TISSUE 20 SQ CM/< 14424 12/02/16 EXCISION OF L FOOT SUBCU/FASCIA, OPEN APPROACH [id number] 12/02/16 EXCISION OF LEFT HIP MUSCLE, OPEN APPROACH [id number] 10/24/16 EXCISION OF LEFT PELVIC BONE, OPEN APPROACH [id number] 12/02/16 EXCISION OF R FOOT SUBCU/FASCIA, OPEN APPROACH [id number] 12/02/16 RESPIRATORY VENTILATION, 24-96 CONSECUTIVE HOURS [id number] 12/02/16 Assessment/Plan - Problem List Patient Problems: All Active Problems POOR ORAL INTAKE AND SWALLOWING (Acute) SACRAL AND BILATERAL BUTTOCK SKIN ULCERS (Acute) - Assessment Assessment: Current Active Problems Problem Status Onset POOR ORAL INTAKE AND SWALLOWING Acute Patient has been calm. non verbal, in no acute distress. Intubated. Na, Creatinine improving. Colostomy in place. Hgb is low today. Wheaning proxcess continue. Dx: Hypernatremia, AKF, Chronic anemia, Sacral decubitus ulcer stage IV, HTN, DM, Dementia, anemia. - Plan Plan: PEG in place, fedding started. Already seen by [facility], GI, and surgery. NA, and Creatinine improving. Case discussed with family. One unit of blood will be transfused today. Will continue to monitor. Nutritional Asmnt/Malnutr-PDOC - Dietary Evaluation Malnutrition Findings (Please click <Entered> for more info): Nutritional Asmnt/Malnutrition Start: 12/02/16 14: 44 Text: Status: Complete Freq: Document 12/02/16 14:44 GSUN (Rec: 12/02/16 15:19 [facility] [id number]) Nutritional Asmnt/Malnutrition Patient General Information Nutritional Screening Consult Diagnosis AKF, sacral decubitus ulcer stage IV, HTN, DM, dementia, chronic anemia Pertinent Medical Hx/Surgical Hx CAD, CVA, dementia, psychosis, muscle atrophy, AKF, DM, decubitus ulcer stage IV Subjective Information 81 year old female from SNF. RD consult for low Elliot and elevated blood glucose. Pt was awake, unable to provide nutrition hx. Family at bedside, spoke to family and RN Loren regarding nutrition plan of care, PEG placement consent obtained. Family has no other questions at this time. 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 Per nursing adm notes , 4-5lb wt loss in 2 weeks. Per family, unaware of UBW, aware of recent wt loss, stated pt stopped eating ~3-4 days ago. Loose skin, moderate to severe muslce fat wasting to chest and clavicles. Current Diet Order/ Nutrition Support NPO Pertinent Medications Dulcolax, D5-0.45ns, Novolog Pertinent Labs 12/01: A1c 9H 12/02: sodium 173H, potassium 5.3H, BUN 169H, creatinie 5.8H , glucose 238H, calcium 10.8H Nutritional Hx/Data Height 1.52 m Height (Calculated Centimeters) 152.4 Current Weight (lbs) 43.545 kg Weight (Calculated Kilograms) 43.5 Weight (Calculated Grams) 55910.9 [place] Body Weight 100 Recent Weight Change Yes Weight Status Approriate GI Symptoms Usual diet at home [facility]: pureed, ALISE , [facility] Skin Integrity/Comment: Elliot 11. Sacral decubitus ulcer stage IV. Estimated Nutritional Goals Calories/Kcals/Kg IBW 100lb/45.5kg Kcals Calculated 1365-1593kcal (30-35kcal/kg) Protein Calculated 68-73g (1.4-1.6g/kg, ulcer vs renal, ?HD) Fluid: ml Per MD Nutritional Problem 3. Problem Problem Altered nutrition related laboratory values related to Etiology DM aeb Signs/Symptoms: A1c 9H, glucose 238H 2. Problem Problem Increased kcal and prot needs related to Etiology skin integrity, recent weight loss aeb Signs/Symptoms: Sacral decubitus ulcer stage IV, wt loss 4-5lb in 2 weeks per nursing adm notes, moderate to seevre muslce/fat wasting to chest and clavicles 1. Problem Problem Impaired nutrient utilization related to Etiology acute kidney injury aeb Signs/Symptoms: potassium 5.3H, BUN 169H, creatinie 5.8H, calcium 10.8H Intervention/Recommendation Comments 1. Discussed enteral nutrition with family. Family has no further questions at this time . 2. When medically feasible to initiate feeding, recommend Novasource Renal at 30ml/hr x 24hrs, providing 720ml total volume, 1440kcal, 65g protein. Initiate at 10ml/hr for first 24 hrs, monitor for refeeding syndrome and tolerance, increase by 5ml/hr q12hrs until goal. 3. Recommend 1 packet Arginaid daily via tube for wound healing. 4. Monitor weight closely. Hx 4-5lb wt loss in 2 weeks per nursing adm note. Expected Outcomes/Goals Expected Outcomes/Goals 1. Pt to meet at least 75% of estimated nutritinoal eneds on tube feeding with tolerance.
[2016-12-08 11:36] LABS: pH 7.55 (7.35-7.45)
[2016-12-08 11:37] LABS: ALLEN TEST YES
[2016-12-08] MEDS: Venelex 60gm Tube TP SCH (12:32)
[2016-12-08] MEDS: Dextrose 5% 1,000 ML IV SCH (12:42)
[2016-12-08 14:23] LABS: HEMOGLOBIN 10.6 gm/dL (12-16)
[2016-12-08] MEDS: Epoetin Alfa 20000 Units/mL Vial SUBQ SCH (14:33)
[2016-12-08] MEDS: Insulin Detemir 100 units/mL 10mL Vial SUBQ SCH (21:06)
[2016-12-09] MEDS: Albuterol/Ipratropium Neb 3 ML AERS HHN SCH ×3 (01:15→13:33)
[2016-12-09] MEDS: metroNIDAZOLE 500mg/NS 100mL 500 MG in Premix Fluid 1 BAG IV SCH ×3 (02:25→17:26)
[2016-12-09] MEDS: Dextrose 5% 1,000 ML IV SCH (03:36)
[2016-12-09 05:46] LABS: % EOSINOPHILS 1.8 % (0.0-5.0); % LYMPHOCYTES 9.5 % (20.0-50.0); % MONOCYTES 4.1 % (2.0-10.0); % NEUTROPHILS 84.6 % (40.0-80.0); EOSINOPHILE ABSOLUTE 0.2 Th/cmm (0.1-0.4); HEMATOCRIT 30.2 % (41.0-60); LYMPHOCYTE ABSOLUTE 1.2 Th/cmm (1.5-3.0); MEAN CELL VOLUME 86.7 fl (81-100); MEAN CORPUSCULAR HEMOGLOBIN 28.8 pg (27.0-31.0); MEAN CORPUSCULAR HGB CONC 33.2 pg (28.0-36.0); MEAN PLATELET VOLUME 11.4 fl; MONOCYTE ABSOLUTE 0.5 Th/cmm (0.3-1.0); NEUTROPHILE ABSOLUTE 10.8 Th/cmm (1.8-8.0); RED BLOOD COUNT 3.49 Mil/cmm (3.80-5.20); RED CELL DISTRIBUTION WIDTH 18.4 % (11.5-20.0)
[2016-12-09 06:02] LABS: ALB/GLOB RATIO 0.7 (1.0-1.8); ALBUMIN 1.8 gm/dL (3.7-5.3); ALKALINE PHOSPHATASE 286 U/L (34-104); ANION GAP 12.3 (7.0-16.0); BILIRUBIN,TOTAL 0.6 mg/dL (0.3-1.0); BUN - UREA NITROGEN 64 mg/dL (7-25); CALCIUM SERUM 8.1 mg/dL (8.6-10.3); CARBON DIOXIDE 17.9 mEq/L (21.0-31.0); CHLORIDE 116 mEq/L (98-107); CREATININE - SERUM 2.5 mg/dL (0.6-1.2); POTASSIUM SERUM 4.2 mEq/L (3.5-5.1); SGOT 12 U/L (13-39); SGPT/ALT 6 U/L (7-52); SODIUM SERUM 142 mEq/L (136-145); TOTAL PROTEIN,SERUM 4.4 gm/dL (6.0-8.3)
[2016-12-09 06:12] LABS: GLUCOSE 304 mg/dL (40-70); PLATELET COUNT 129 Th/cmm (150-400)
[2016-12-09 06:13] LABS: WHITE BLOOD COUNT 12.7 Th/cmm (4.8-10.8)
[2016-12-09] MEDS: INSULIN ASPART SLIDING SCALE 100 UNITS/ML UNIT SUBQ SCH ×3 (07:03→17:20)
[2016-12-09] MEDS ORDERED: Lactobacillus Rhamnosus 10 Billion CFU Capsule PO SCH (09:00)
[2016-12-09] MEDS: Multivitamin w/ Minerals Tab PO SCH (09:11)
--- NOTE | 2016-12-09 09:12 | Discharge Summary ---
General Discharge Summary - Discharge Summary Date of Admission: 12/01/16 Admitting Diagnosis: Dysphagia, Hypernatremia, AKF, Dementia, Sacral decubitus ulcer stage IV, d Patient Problems: All Active Problems POOR ORAL INTAKE AND SWALLOWING (Acute) SACRAL AND BILATERAL BUTTOCK SKIN ULCERS (Acute) Discharge Date: 12/09/16 Discharge Diagnosis: same as intake. Laboratory Findings: Laboratory Tests 12/02/16 12/02/16 12/02/16 05:05 05:05 05:05 WBC 11.2 H D RBC 3.43 L Hgb 9.7 L Hct 30.3 L MCV 88.4 MCH 28.2 MCHC Differential 31.9 RDW 20.9 H Plt Count 115 L MPV 14.9 Neutrophils % 75.5 Band Neutrophils % Lymphocytes % 18.4 L Monocytes % 5.3 Eosinophils % 0.7 Basophils % 0.1 Neutrophils (Manual) Lymphocytes Monocytes Eosinophils Platelet Estimate Anisocytosis Eos Smear Source Eos Smear Total Cells PT INR Specimen Source Sample Site pH pCO2 pO2 HCO3 Base Excess O2 Saturation Isidro Test Vent Rate Inspired O2 Tidal Volume PEEP Pressure (ins/psv/peep) Critical Value Sodium 173 H* Potassium 5.3 H Chloride 144 H* Carbon Dioxide 14.6 L Anion Gap 19.7 H BUN 169 H* Creatinine 5.8 H* Est GFR ( Amer) TNP Est GFR (Non-Af Amer) TNP BUN/Creatinine Ratio 29.1 Glucose 238 H POC Glucose Whole Bld Lactic Acid Uric Acid Calcium 10.8 H Magnesium Total Bilirubin 0.5 AST 9 L ALT 13 Alkaline Phosphatase 66 Total Protein 6.1 Albumin 2.9 L Globulin 3.2 Albumin/Globulin Ratio 0.9 L TSH 1.83 Urine Source Urine Color Urine Clarity Urine pH Ur Specific [place] Urine Protein Urine Glucose (UA) Urine Ketones Urine Blood Urine Nitrate Urine Bilirubin Urine Urobilinogen Ur Leukocyte Esterase Urine RBC Urine WBC Ur Epithelial Cells Triple Phos Crystals Urine Bacteria Urine Osmolality Ur Random Sodium Urine Creatinine Blood Type Antibody Screen Crossmatch 12/02/16 12/02/16 12/02/16 05:05 05:59 12:27 WBC RBC Hgb Hct MCV MCH MCHC Differential RDW Plt Count MPV Neutrophils % Band Neutrophils % Lymphocytes % Monocytes % Eosinophils % Basophils % Neutrophils (Manual) Lymphocytes Monocytes Eosinophils Platelet Estimate Anisocytosis Eos Smear Source Eos Smear Total Cells PT INR Specimen Source Sample Site pH pCO2 pO2 HCO3 Base Excess O2 Saturation Is[place]ro Test Vent Rate Inspired O2 Tidal Volume PEEP Pressure (ins/psv/peep) Critical Value Sodium Potassium Chloride Carbon Dioxide Anion Gap BUN Creatinine Est GFR ( Amer) Est GFR (Non-Af Amer) BUN/Creatinine Ratio Glucose POC Glucose 192 H 308 H Whole Bld Lactic Acid Uric Acid Calcium Magnesium Total Bilirubin AST ALT Alkaline Phosphatase Total Protein Albumin Globulin Albumin/Globulin Ratio TSH Urine Source Urine Color Urine Clarity Urine pH Ur Specific [place] Urine Protein Urine Glucose (UA) Urine Ketones Urine Blood Urine Nitrate Urine Bilirubin Urine Urobilinogen Ur Leukocyte Esterase Urine RBC Urine WBC Ur Epithelial Cells Triple Phos Crystals Urine Bacteria Urine Osmolality Ur Random Sodium Urine Creatinine Blood Type O POSITIVE Antibody Screen NEGATIVE Crossmatch See Detail 12/02/16 12/02/16 12/02/16 14:56 17:18 21:54 WBC RBC Hgb Hct MCV MCH MCHC Differential RDW Plt Count MPV Neutrophils % Band Neutrophils % Lymphocytes % Monocytes % Eosinophils % Basophils % Neutrophils (Manual) Lymphocytes Monocytes Eosinophils Platelet Estimate Anisocytosis Eos Smear Source Eos Smear Total Cells PT INR Specimen Source Sample Site pH pCO2 pO2 HCO3 Base Excess O2 Saturation Isidro Test Vent Rate Inspired O2 Tidal Volume PEEP Pressure (ins/psv/peep) Critical Value Sodium Potassium Chloride Carbon Dioxide Anion Gap BUN Creatinine Est GFR ( Amer) Est GFR (Non-Af Amer) BUN/Creatinine Ratio Glucose POC Glucose 326 H 300 H Whole Bld Lactic Acid Uric Acid Calcium Magnesium Total Bilirubin AST ALT Alkaline Phosphatase Total Protein Albumin Globulin Albumin/Globulin Ratio TSH Urine Source [place] Urine Color YELLOW Urine Clarity HAZY Urine pH 8.0 Ur Specific [place] 1.015 Urine Protein 100 H Urine Glucose (UA) 500 H Urine Ketones NEGATIVE Urine Blood MODERATE H Urine Nitrate POSITIVE H Urine Bilirubin NEGATIVE Urine Urobilinogen 0.2 Ur Leukocyte Esterase MODERATE H Urine RBC 5-10 H Urine WBC 50-100 H Ur Epithelial Cells FEW Triple Phos Crystals MODERATE Urine Bacteria MANY Urine Osmolality Ur Random Sodium Urine Creatinine Blood Type Antibody Screen Crossmatch 12/03/16 12/03/16 12/03/16 05:35 05:35 05:35 WBC 9.1 RBC 2.94 L Hgb 8.2 L Hct 25.8 L D MCV 87.6 MCH 27.9 MCHC Differential 31.8 RDW 21.4 H Plt Count 91 L D MPV 14.5 Neutrophils % Band Neutrophils % 15 H Lymphocytes % Monocytes % Eosinophils % Basophils % Neutrophils (Manual) 60 Lymphocytes 16 L Monocytes 6 Eosinophils 3 Platelet Estimate DECREASED PLATELETS Anisocytosis 2+ Eos Smear Source Eos Smear Total Cells PT 11.2 INR 1.08 Specimen Source Sample Site pH pCO2 pO2 HCO3 Base Excess O2 Saturation Isidro Test Vent Rate Inspired O2 Tidal Volume PEEP Pressure (ins/psv/peep) Critical Value Sodium 171 H* Potassium 4.5 Chloride 144 H* Carbon Dioxide 16.5 L Anion Gap 15.0 BUN 150 H* Creatinine 5.4 H* Est GFR ( Amer) TNP Est GFR (Non-Af Amer) TNP BUN/Creatinine Ratio 27.8 Glucose 330 H POC Glucose Whole Bld Lactic Acid Uric Acid 11.6 H Calcium 10.4 H Magnesium 2.7 Total Bilirubin 0.4 AST 8 L ALT 11 Alkaline Phosphatase 60 Total Protein 5.4 L Albumin 2.6 L Globulin 2.8 Albumin/Globulin Ratio 0.9 L TSH Urine Source Urine Color Urine Clarity Urine pH Ur Specific [place] Urine Protein Urine Glucose (UA) Urine Ketones Urine Blood Urine Nitrate Urine Bilirubin Urine Urobilinogen Ur Leukocyte Esterase Urine RBC Urine WBC Ur Epithelial Cells Triple Phos Crystals Urine Bacteria Urine Osmolality Ur Random Sodium Urine Creatinine Blood Type Antibody Screen Crossmatch 12/03/16 12/03/16 12/03/16 05:35 06:30 06:30 WBC RBC Hgb Hct MCV MCH MCHC Differential RDW Plt Count MPV Neutrophils % Band Neutrophils % Lymphocytes % Monocytes % Eosinophils % Basophils % Neutrophils (Manual) Lymphocytes Monocytes Eosinophils Platelet Estimate Anisocytosis Eos Smear Source URINE Eos Smear Total Cells NONE SEEN PT INR Specimen Source Sample Site pH pCO2 pO2 HCO3 Base Excess O2 Saturation Isidro Test Vent Rate Inspired O2 Tidal Volume PEEP Pressure (ins/psv/peep) Critical Value Sodium Potassium Chloride Carbon Dioxide Anion Gap BUN Creatinine Est GFR ( Amer) Est GFR (Non-Af Amer) BUN/Creatinine Ratio Glucose POC Glucose Whole Bld Lactic Acid Uric Acid Calcium Magnesium Total Bilirubin AST ALT Alkaline Phosphatase Total Protein Albumin Globulin Albumin/Globulin Ratio TSH 2.49 Urine Source Urine Color Urine Clarity Urine pH Ur Specific [place] Urine Protein Urine Glucose (UA) Urine Ketones Urine Blood Urine Nitrate Urine Bilirubin Urine Urobilinogen Ur Leukocyte Esterase Urine RBC Urine WBC Ur Epithelial Cells Triple Phos Crystals Urine Bacteria Urine Osmolality Ur Random Sodium Urine Creatinine 49.0 Blood Type Antibody Screen Crossmatch 12/03/16 12/03/16 12/03/16 06:30 06:30 06:36 WBC RBC Hgb Hct MCV MCH MCHC Differential RDW Plt Count MPV Neutrophils % Band Neutrophils % Lymphocytes % Monocytes % Eosinophils % Basophils % Neutrophils (Manual) Lymphocytes Monocytes Eosinophils Platelet Estimate Anisocytosis Eos Smear Source Eos Smear Total Cells PT INR Specimen Source Sample Site pH pCO2 pO2 HCO3 Base Excess O2 Saturation Isidro Test Vent Rate Inspired O2 Tidal Volume PEEP Pressure (ins/psv/peep) Critical Value Sodium Potassium Chloride Carbon Dioxide Anion Gap BUN Creatinine Est GFR ( Amer) Est GFR (Non-Af Amer) BUN/Creatinine Ratio Glucose POC Glucose 268 H Whole Bld Lactic Acid Uric Acid Calcium Magnesium Total Bilirubin AST ALT Alkaline Phosphatase Total Protein Albumin Globulin Albumin/Globulin Ratio TSH Urine Source Urine Color Urine Clarity Urine pH Ur Specific [place] Urine Protein Urine Glucose (UA) Urine Ketones Urine Blood Urine Nitrate Urine Bilirubin Urine Urobilinogen Ur Leukocyte Esterase Urine RBC Urine WBC Ur Epithelial Cells Triple Phos Crystals Urine Bacteria Urine Osmolality 488 Ur Random Sodium 75 Urine Creatinine Blood Type Antibody Screen Crossmatch 12/03/16 12/03/16 12/03/16 11:59 16:32 20:35 WBC RBC Hgb Hct MCV MCH MCHC Differential RDW Plt Count MPV Neutrophils % Band Neutrophils % Lymphocytes % Monocytes % Eosinophils % Basophils % Neutrophils (Manual) Lymphocytes Monocytes Eosinophils Platelet Estimate Anisocytosis Eos Smear Source Eos Smear Total Cells PT INR Specimen Source Sample Site pH pCO2 pO2 HCO3 Base Excess O2 Saturation Is[place]ro Test Vent Rate Inspired O2 Tidal Volume PEEP Pressure (ins/psv/peep) Critical Value Sodium Potassium Chloride Carbon Dioxide Anion Gap BUN Creatinine Est GFR ( Amer) Est GFR (Non-Af Amer) BUN/Creatinine Ratio Glucose POC Glucose 335 H 333 H 286 H Whole Bld Lactic Acid Uric Acid Calcium Magnesium Total Bilirubin AST ALT Alkaline Phosphatase Total Protein Albumin Globulin Albumin/Globulin Ratio TSH Urine Source Urine Color Urine Clarity Urine pH Ur Specific [place] Urine Protein Urine Glucose (UA) Urine Ketones Urine Blood Urine Nitrate Urine Bilirubin Urine Urobilinogen Ur Leukocyte Esterase Urine RBC Urine WBC Ur Epithelial Cells Triple Phos Crystals Urine Bacteria Urine Osmolality Ur Random Sodium Urine Creatinine Blood Type Antibody Screen Crossmatch 12/04/16 12/04/16 12/04/16 04:50 04:50 06:05 WBC 7.7 RBC 2.75 L Hgb 7.9 L* Hct 24.1 L MCV 87.6 MCH 28.5 MCHC Differential 32.6 RDW 21.0 H Plt Count 74 L MPV 14.6 Neutrophils % Band Neutrophils % 8 Lymphocytes % Monocytes % Eosinophils % Basophils % Neutrophils (Manual) 77 Lymphocytes 10 L Monocytes 5 Eosinophils Platelet Estimate SLIGHT DECREASED Anisocytosis Eos Smear Source Eos Smear Total Cells PT INR Specimen Source Sample Site pH pCO2 pO2 HCO3 Base Excess O2 Saturation Is[place]ro Test Vent Rate Inspired O2 Tidal Volume PEEP Pressure (ins/psv/peep) Critical Value Sodium 160 H* Potassium 3.9 Chloride 135 H Carbon Dioxide 14.2 L Anion Gap 14.7 BUN 121 H* Creatinine 4.5 H* Est GFR ( Amer) TNP Est GFR (Non-Af Amer) TNP BUN/Creatinine Ratio 26.9 Glucose 425 H POC Glucose 394 H Whole Bld Lactic Acid Uric Acid Calcium 9.7 Magnesium Total Bilirubin 0.5 AST 28 ALT 12 Alkaline Phosphatase 74 Total Protein 5.2 L Albumin 2.4 L Globulin 2.8 Albumin/Globulin Ratio 0.9 L TSH Urine Source Urine Color Urine Clarity Urine pH Ur Specific [place] Urine Protein Urine Glucose (UA) Urine Ketones Urine Blood Urine Nitrate Urine Bilirubin Urine Urobilinogen Ur Leukocyte Esterase Urine RBC Urine WBC Ur Epithelial Cells Triple Phos Crystals Urine Bacteria Urine Osmolality Ur Random Sodium Urine Creatinine Blood Type Antibody Screen Crossmatch 12/04/16 12/04/16 12/04/16 11:40 16:52 20:39 WBC RBC Hgb Hct MCV MCH MCHC Differential RDW Plt Count MPV Neutrophils % Band Neutrophils % Lymphocytes % Monocytes % Eosinophils % Basophils % Neutrophils (Manual) Lymphocytes Monocytes Eosinophils Platelet Estimate Anisocytosis Eos Smear Source Eos Smear Total Cells PT INR Specimen Source Sample Site pH pCO2 pO2 HCO3 Base Excess O2 Saturation [place] Test Vent Rate Inspired O2 Tidal Volume PEEP Pressure (ins/psv/peep) Critical Value Sodium Potassium Chloride Carbon Dioxide Anion Gap BUN Creatinine Est GFR ( Amer) Est GFR (Non-Af Amer) BUN/Creatinine Ratio Glucose POC Glucose 398 H 333 H 480 H* Whole Bld Lactic Acid Uric Acid Calcium Magnesium Total Bilirubin AST ALT Alkaline Phosphatase Total Protein Albumin Globulin Albumin/Globulin Ratio TSH Urine Source Urine Color Urine Clarity Urine pH Ur Specific [place] Urine Protein Urine Glucose (UA) Urine Ketones Urine Blood Urine Nitrate Urine Bilirubin Urine Urobilinogen Ur Leukocyte Esterase Urine RBC Urine WBC Ur Epithelial Cells Triple Phos Crystals Urine Bacteria Urine Osmolality Ur Random Sodium Urine Creatinine Blood Type Antibody Screen Crossmatch 1012/05/16 12/05/16 20:41 04:50 04:50 WBC 8.9 RBC 3.55 L Hgb 10.2 L D Hct 31.2 L D MCV 88.1 MCH 28.7 MCHC Differential 32.6 RDW 18.6 Plt Count 75 L MPV 11.5 Neutrophils % 79.0 Band Neutrophils % Lymphocytes % 14.5 L Monocytes % 4.7 Eosinophils % 1.7 Basophils % 0.1 Neutrophils (Manual) Lymphocytes Monocytes Eosinophils Platelet Estimate Anisocytosis Eos Smear Source Eos Smear Total Cells PT INR Specimen Source Sample Site pH pCO2 pO2 HCO3 Base Excess O2 Saturation Is[place]ro Test Vent Rate Inspired O2 Tidal Volume PEEP Pressure (ins/psv/peep) Critical Value Sodium 146 H Potassium 3.3 L Chloride 122 H Carbon Dioxide 15.0 L Anion Gap 12.3 BUN 102 H* Creatinine 3.8 H Est GFR ( Amer) TNP Est GFR (Non-Af Amer) TNP BUN/Creatinine Ratio 26.8 Glucose 471 H* POC Glucose 398 H Whole Bld Lactic Acid Uric Acid Calcium 9.6 Magnesium Total Bilirubin 0.5 AST 9 L ALT 3 L Alkaline Phosphatase 86 Total Protein 5.4 L Albumin 2.4 L Globulin 3.0 Albumin/Globulin Ratio 0.8 L TSH Urine Source Urine Color Urine Clarity Urine pH Ur Specific [place] Urine Protein Urine Glucose (UA) Urine Ketones Urine Blood Urine Nitrate Urine Bilirubin Urine Urobilinogen Ur Leukocyte Esterase Urine RBC Urine WBC Ur Epithelial Cells Triple Phos Crystals Urine Bacteria Urine Osmolality Ur Random Sodium Urine Creatinine Blood Type Antibody Screen Crossmatch 12/05/16 12/05/16 12/05/16 05:55 07:51 07:58 WBC RBC Hgb Hct MCV MCH MCHC Differential RDW Plt Count MPV Neutrophils % Band Neutrophils % Lymphocytes % Monocytes % Eosinophils % Basophils % Neutrophils (Manual) Lymphocytes Monocytes Eosinophils Platelet Estimate Anisocytosis Eos Smear Source Eos Smear Total Cells PT INR Specimen Source Sample Site pH pCO2 pO2 HCO3 Base Excess O2 Saturation Is[place]ro Test Vent Rate Inspired O2 Tidal Volume PEEP Pressure (ins/psv/peep) Critical Value Sodium Potassium Chloride Carbon Dioxide Anion Gap BUN Creatinine Est GFR ( Amer) Est GFR (Non-Af Amer) BUN/Creatinine Ratio Glucose POC Glucose 403 H 430 H 415 H Whole Bld Lactic Acid Uric Acid Calcium Magnesium Total Bilirubin AST ALT Alkaline Phosphatase Total Protein Albumin Globulin Albumin/Globulin Ratio TSH Urine Source Urine Color Urine Clarity Urine pH Ur Specific [place] Urine Protein Urine Glucose (UA) Urine Ketones Urine Blood Urine Nitrate Urine Bilirubin Urine Urobilinogen Ur Leukocyte Esterase Urine RBC Urine WBC Ur Epithelial Cells Triple Phos Crystals Urine Bacteria Urine Osmolality Ur Random Sodium Urine Creatinine Blood Type Antibody Screen Crossmatch 12/05/16 12/05/16 12/05/16 08:45 09:30 10:05 WBC RBC Hgb Hct MCV MCH MCHC Differential RDW Plt Count MPV Neutrophils % Band Neutrophils % Lymphocytes % Monocytes % Eosinophils % Basophils % Neutrophils (Manual) Lymphocytes Monocytes Eosinophils Platelet Estimate Anisocytosis Eos Smear Source Eos Smear Total Cells PT INR Specimen Source Sample Site pH pCO2 pO2 HCO3 Base Excess O2 Saturation [place] Test Vent Rate Inspired O2 Tidal Volume PEEP Pressure (ins/psv/peep) Critical Value Sodium Potassium Chloride Carbon Dioxide Anion Gap BUN Creatinine Est GFR ( Amer) Est GFR (Non-Af Amer) BUN/Creatinine Ratio Glucose POC Glucose 364 H 355 H Whole Bld Lactic Acid 3.24 H* Uric Acid Calcium Magnesium Total Bilirubin AST ALT Alkaline Phosphatase Total Protein Albumin Globulin Albumin/Globulin Ratio TSH Urine Source Urine Color Urine Clarity Urine pH Ur Specific [place] Urine Protein Urine Glucose (UA) Urine Ketones Urine Blood Urine Nitrate Urine Bilirubin Urine Urobilinogen Ur Leukocyte Esterase Urine RBC Urine WBC Ur Epithelial Cells Triple Phos Crystals Urine Bacteria Urine Osmolality Ur Random Sodium Urine Creatinine Blood Type Antibody Screen Crossmatch 12/05/16 12/05/16 12/05/16 10:05 12:05 12:12 WBC RBC Hgb Hct MCV MCH MCHC Differential RDW Plt Count MPV Neutrophils % Band Neutrophils % Lymphocytes % Monocytes % Eosinophils % Basophils % Neutrophils (Manual) Lymphocytes Monocytes Eosinophils Platelet Estimate Anisocytosis Eos Smear Source Eos Smear Total Cells PT INR Specimen Source Sample Site pH pCO2 pO2 HCO3 Base Excess O2 Saturation [place] Test Vent Rate Inspired O2 Tidal Volume PEEP Pressure (ins/psv/peep) Critical Value Sodium 145 Potassium 2.6 L* Chloride 123 H Carbon Dioxide 12.2 L Anion Gap 12.4 BUN 97 H* Creatinine 3.5 H Est GFR ( Amer) TNP Est GFR (Non-Af Amer) TNP BUN/Creatinine Ratio 27.7 Glucose 363 H POC Glucose 261 H Whole Bld Lactic Acid 2.84 H* Uric Acid Calcium 9.2 Magnesium Total Bilirubin 0.5 AST 8 L ALT 3 L Alkaline Phosphatase 83 Total Protein 5.2 L Albumin 2.4 L Globulin 2.8 Albumin/Globulin Ratio 0.9 L TSH Urine Source Urine Color Urine Clarity Urine pH Ur Specific [place] Urine Protein Urine Glucose (UA) Urine Ketones Urine Blood Urine Nitrate Urine Bilirubin Urine Urobilinogen Ur Leukocyte Esterase Urine RBC Urine WBC Ur Epithelial Cells Triple Phos Crystals Urine Bacteria Urine Osmolality Ur Random Sodium Urine Creatinine Blood Type Antibody Screen Crossmatch 12/05/16 12/05/16 12/06/16 17:16 20:40 04:40 WBC 9.4 RBC 3.21 L Hgb 9.3 L Hct 28.2 L MCV 88.0 MCH 28.9 MCHC Differential 32.9 RDW 18.0 Plt Count 79 L MPV 14.1 Neutrophils % 82.5 H Band Neutrophils % Lymphocytes % 11.3 L Monocytes % 4.8 Eosinophils % 1.2 Basophils % 0.2 Neutrophils (Manual) Lymphocytes Monocytes Eosinophils Platelet Estimate Anisocytosis Eos Smear Source Eos Smear Total Cells PT INR Specimen Source Sample Site pH pCO2 pO2 HCO3 Base Excess O2 Saturation [place] Test Vent Rate Inspired O2 Tidal Volume PEEP Pressure (ins/psv/peep) Critical Value Sodium Potassium Chloride Carbon Dioxide Anion Gap BUN Creatinine Est GFR ( Amer) Est GFR (Non-Af Amer) BUN/Creatinine Ratio Glucose POC Glucose 164 H 139 H Whole Bld Lactic Acid Uric Acid Calcium Magnesium Total Bilirubin AST ALT Alkaline Phosphatase Total Protein Albumin Globulin Albumin/Globulin Ratio TSH Urine Source Urine Color Urine Clarity Urine pH Ur Specific [place] Urine Protein Urine Glucose (UA) Urine Ketones Urine Blood Urine Nitrate Urine Bilirubin Urine Urobilinogen Ur Leukocyte Esterase Urine RBC Urine WBC Ur Epithelial Cells Triple Phos Crystals Urine Bacteria Urine Osmolality Ur Random Sodium Urine Creatinine Blood Type Antibody Screen Crossmatch 12/06/16 12/06/16 12/06/16 04:40 06:37 07:07 WBC RBC Hgb Hct MCV MCH MCHC Differential RDW Plt Count MPV Neutrophils % Band Neutrophils % Lymphocytes % Monocytes % Eosinophils % Basophils % Neutrophils (Manual) Lymphocytes Monocytes Eosinophils Platelet Estimate Anisocytosis Eos Smear Source Eos Smear Total Cells PT INR Specimen Source Sample Site pH pCO2 pO2 HCO3 Base Excess O2 Saturation [place]ro Test Vent Rate Inspired O2 Tidal Volume PEEP Pressure (ins/psv/peep) Critical Value Sodium 152 H Potassium 3.8 Chloride 128 H Carbon Dioxide 13.8 L Anion Gap 14.0 BUN 85 H* Creatinine 3.2 H Est GFR ( Amer) TNP Est GFR (Non-Af Amer) TNP BUN/Creatinine Ratio 26.6 Glucose 68 L POC Glucose 59 L 120 H Whole Bld Lactic Acid Uric Acid Calcium 8.8 Magnesium Total Bilirubin AST ALT Alkaline Phosphatase Total Protein Albumin Globulin Albumin/Globulin Ratio TSH Urine Source Urine Color Urine Clarity Urine pH Ur Specific [place] Urine Protein Urine Glucose (UA) Urine Ketones Urine Blood Urine Nitrate Urine Bilirubin Urine Urobilinogen Ur Leukocyte Esterase Urine RBC Urine WBC Ur Epithelial Cells Triple Phos Crystals Urine Bacteria Urine Osmolality Ur Random Sodium Urine Creatinine Blood Type Antibody Screen Crossmatch 12/06/16 12/06/16 12/06/16 07:10 08:47 11:23 WBC RBC Hgb Hct MCV MCH MCHC Differential RDW Plt Count MPV Neutrophils % Band Neutrophils % Lymphocytes % Monocytes % Eosinophils % Basophils % Neutrophils (Manual) Lymphocytes Monocytes Eosinophils Platelet Estimate Anisocytosis Eos Smear Source Eos Smear Total Cells PT INR Specimen Source Arterial Sample Site Left Radial pH 7.35 pCO2 19.0 L* pO2 177.0 H HCO3 14.9 L Base Excess -12.9 L O2 Saturation 100.0 Isidro Test Positive Vent Rate 8 Inspired O2 40 Tidal Volume 450 PEEP 5 Pressure (ins/psv/peep) 10 Critical Value O. Storm Sodium Potassium Chloride Carbon Dioxide Anion Gap BUN Creatinine Est GFR ( Amer) Est GFR (Non-Af Amer) BUN/Creatinine Ratio Glucose 174 H POC Glucose 51 L Whole Bld Lactic Acid Uric Acid Calcium Magnesium Total Bilirubin AST ALT Alkaline Phosphatase Total Protein Albumin Globulin Albumin/Globulin Ratio TSH Urine Source Urine Color Urine Clarity Urine pH Ur Specific [place] Urine Protein Urine Glucose (UA) Urine Ketones Urine Blood Urine Nitrate Urine Bilirubin Urine Urobilinogen Ur Leukocyte Esterase Urine RBC Urine WBC Ur Epithelial Cells Triple Phos Crystals Urine Bacteria Urine Osmolality Ur Random Sodium Urine Creatinine Blood Type Antibody Screen Crossmatch 12/06/16 12/06/16 12/06/16 11:28 11:56 12:08 WBC RBC Hgb Hct MCV MCH MCHC Differential RDW Plt Count MPV Neutrophils % Band Neutrophils % Lymphocytes % Monocytes % Eosinophils % Basophils % Neutrophils (Manual) Lymphocytes Monocytes Eosinophils Platelet Estimate Anisocytosis Eos Smear Source Eos Smear Total Cells PT INR Specimen Source Sample Site pH pCO2 pO2 HCO3 Base Excess O2 Saturation Is[place]ro Test Vent Rate Inspired O2 Tidal Volume PEEP Pressure (ins/psv/peep) Critical Value Sodium Potassium Chloride Carbon Dioxide Anion Gap BUN Creatinine Est GFR ( Amer) Est GFR (Non-Af Amer) BUN/Creatinine Ratio Glucose 195 H POC Glucose 52 L 199 H Whole Bld Lactic Acid Uric Acid Calcium Magnesium Total Bilirubin AST ALT Alkaline Phosphatase Total Protein Albumin Globulin Albumin/Globulin Ratio TSH Urine Source Urine Color Urine Clarity Urine pH Ur Specific [place] Urine Protein Urine Glucose (UA) Urine Ketones Urine Blood Urine Nitrate Urine Bilirubin Urine Urobilinogen Ur Leukocyte Esterase Urine RBC Urine WBC Ur Epithelial Cells Triple Phos Crystals Urine Bacteria Urine Osmolality Ur Random Sodium Urine Creatinine Blood Type Antibody Screen Crossmatch 12/06/16 12/06/16 12/07/16 17:04 20:57 04:25 WBC 9.1 RBC 3.13 L Hgb 9.0 L Hct 27.4 L MCV 87.4 MCH 28.7 MCHC Differential 32.9 RDW 19.3 Plt Count 77 L MPV 14.2 Neutrophils % 83.1 H Band Neutrophils % Lymphocytes % 10.5 L Monocytes % 4.7 Eosinophils % 1.7 Basophils % 0.0 Neutrophils (Manual) Lymphocytes Monocytes Eosinophils Platelet Estimate Anisocytosis Eos Smear Source Eos Smear Total Cells PT INR Specimen Source Sample Site pH pCO2 pO2 HCO3 Base Excess O2 Saturation Isidro Test Vent Rate Inspired O2 Tidal Volume PEEP Pressure (ins/psv/peep) Critical Value Sodium Potassium Chloride Carbon Dioxide Anion Gap BUN Creatinine Est GFR ( Amer) Est GFR (Non-Af Amer) BUN/Creatinine Ratio Glucose POC Glucose 230 H 262 H Whole Bld Lactic Acid Uric Acid Calcium Magnesium Total Bilirubin AST ALT Alkaline Phosphatase Total Protein Albumin Globulin Albumin/Globulin Ratio TSH Urine Source Urine Color Urine Clarity Urine pH Ur Specific [place] Urine Protein Urine Glucose (UA) Urine Ketones Urine Blood Urine Nitrate Urine Bilirubin Urine Urobilinogen Ur Leukocyte Esterase Urine RBC Urine WBC Ur Epithelial Cells Triple Phos Crystals Urine Bacteria Urine Osmolality Ur Random Sodium Urine Creatinine Blood Type Antibody Screen Crossmatch 12/07/16 12/07/16 12/07/16 04:25 09:35 11:56 WBC RBC Hgb Hct MCV MCH MCHC Differential RDW Plt Count MPV Neutrophils % Band Neutrophils % Lymphocytes % Monocytes % Eosinophils % Basophils % Neutrophils (Manual) Lymphocytes Monocytes Eosinophils Platelet Estimate Anisocytosis Eos Smear Source Eos Smear Total Cells PT INR Specimen Source Arterial Sample Site LB pH 7.38 pCO2 23.0 L* pO2 130.0 H HCO3 17.4 L Base Excess -9.7 L O2 Saturation 99.0 Isidro Test NA Vent Rate 6 Inspired O2 30 Tidal Volume 450 PEEP 5 Pressure (ins/psv/peep) 10 Critical Value [id number] Sodium 149 H Potassium 3.3 L Chloride 123 H Carbon Dioxide 15.8 L Anion Gap 13.5 BUN 75 H Creatinine 2.9 H Est GFR ( Amer) TNP Est GFR (Non-Af Amer) TNP BUN/Creatinine Ratio 25.9 Glucose 195 H POC Glucose 190 H Whole Bld Lactic Acid Uric Acid Calcium 8.5 L Magnesium Total Bilirubin AST ALT Alkaline Phosphatase Total Protein Albumin Globulin Albumin/Globulin Ratio TSH Urine Source Urine Color Urine Clarity Urine pH Ur Specific [place] Urine Protein Urine Glucose (UA) Urine Ketones Urine Blood Urine Nitrate Urine Bilirubin Urine Urobilinogen Ur Leukocyte Esterase Urine RBC Urine WBC Ur Epithelial Cells Triple Phos Crystals Urine Bacteria Urine Osmolality Ur Random Sodium Urine Creatinine Blood Type Antibody Screen Crossmatch 12/07/16 12/07/16 12/08/16 17:01 20:26 04:23 WBC 10.7 RBC 2.65 L Hgb 7.6 L* D Hct 23.0 L D MCV 87.0 MCH 28.9 MCHC Differential 33.2 RDW 19.3 Plt Count 87 L MPV 13.4 Neutrophils % Band Neutrophils % 2 Lymphocytes % Monocytes % Eosinophils % Basophils % Neutrophils (Manual) 78 Lymphocytes 15 L Monocytes 4 Eosinophils 1 Platelet Estimate SLIGHT DECREASED Anisocytosis Eos Smear Source Eos Smear Total Cells PT INR Specimen Source Sample Site pH pCO2 pO2 HCO3 Base Excess O2 Saturation Isidro Test Vent Rate Inspired O2 Tidal Volume PEEP Pressure (ins/psv/peep) Critical Value Sodium Potassium Chloride Carbon Dioxide Anion Gap BUN Creatinine Est GFR ( Amer) Est GFR (Non-Af Amer) BUN/Creatinine Ratio Glucose POC Glucose 174 H 167 H Whole Bld Lactic Acid Uric Acid Calcium Magnesium Total Bilirubin AST ALT Alkaline Phosphatase Total Protein Albumin Globulin Albumin/Globulin Ratio TSH Urine Source Urine Color Urine Clarity Urine pH Ur Specific [place] Urine Protein Urine Glucose (UA) Urine Ketones Urine Blood Urine Nitrate Urine Bilirubin Urine Urobilinogen Ur Leukocyte Esterase Urine RBC Urine WBC Ur Epithelial Cells Triple Phos Crystals Urine Bacteria Urine Osmolality Ur Random Sodium Urine Creatinine Blood Type Antibody Screen Crossmatch 12/08/16 12/08/16 12/08/16 04:23 04:23 06:55 WBC RBC Hgb Hct MCV MCH MCHC Differential RDW Plt Count MPV Neutrophils % Band Neutrophils % Lymphocytes % Monocytes % Eosinophils % Basophils % Neutrophils (Manual) Lymphocytes Monocytes Eosinophils Platelet Estimate Anisocytosis Eos Smear Source Eos Smear Total Cells PT INR Specimen Source Sample Site pH pCO2 pO2 HCO3 Base Excess O2 Saturation Isidro Test Vent Rate Inspired O2 Tidal Volume PEEP Pressure (ins/psv/peep) Critical Value Sodium 146 H Potassium 3.7 Chloride 120 H Carbon Dioxide 17.2 L Anion Gap 12.5 BUN 69 H Creatinine 2.7 H Est GFR ( Amer) TNP Est GFR (Non-Af Amer) TNP BUN/Creatinine Ratio 25.6 Glucose 198 H POC Glucose 216 H Whole Bld Lactic Acid Uric Acid Calcium 8.0 L Magnesium Total Bilirubin 0.5 AST 15 ALT 6 L Alkaline Phosphatase 280 H Total Protein 4.0 L Albumin 1.7 L Globulin 2.3 Albumin/Globulin Ratio 0.7 L TSH Urine Source Urine Color Urine Clarity Urine pH Ur Specific [place] Urine Protein Urine Glucose (UA) Urine Ketones Urine Blood Urine Nitrate Urine Bilirubin Urine Urobilinogen Ur Leukocyte Esterase Urine RBC Urine WBC Ur Epithelial Cells Triple Phos Crystals Urine Bacteria Urine Osmolality Ur Random Sodium Urine Creatinine Blood Type O POSITIVE Antibody Screen NEGATIVE Crossmatch See Detail 12/08/16 12/08/16 12/08/16 09:12 11:25 12:12 WBC RBC Hgb Hct MCV MCH MCHC Differential RDW Plt Count MPV Neutrophils % Band Neutrophils % Lymphocytes % Monocytes % Eosinophils % Basophils % Neutrophils (Manual) Lymphocytes Monocytes Eosinophils Platelet Estimate Anisocytosis Eos Smear Source Eos Smear Total Cells PT INR Specimen Source Arterial Arterial Sample Site Left Radial Left Radial pH 7.40 7.55 H pCO2 25.0 L 11.0 L* pO2 130.0 H 224.0 H HCO3 19.0 L 17.7 L Base Excess -7.7 L -9.4 L O2 Saturation 99.0 100.0 Isidro Test YES YES Vent Rate 6 NA Inspired O2 30 40 Tidal Volume 450 NA PEEP 5 NA Pressure (ins/psv/peep) 10 NA Critical Value SUSANNAH RADHA SUSANNAH RADHA Sodium Potassium Chloride Carbon Dioxide Anion Gap BUN Creatinine Est GFR ( Amer) Est GFR (Non-Af Amer) BUN/Creatinine Ratio Glucose POC Glucose 159 H Whole Bld Lactic Acid Uric Acid Calcium Magnesium Total Bilirubin AST ALT Alkaline Phosphatase Total Protein Albumin Globulin Albumin/Globulin Ratio TSH Urine Source Urine Color Urine Clarity Urine pH Ur Specific [place] Urine Protein Urine Glucose (UA) Urine Ketones Urine Blood Urine Nitrate Urine Bilirubin Urine Urobilinogen Ur Leukocyte Esterase Urine RBC Urine WBC Ur Epithelial Cells Triple Phos Crystals Urine Bacteria Urine Osmolality Ur Random Sodium Urine Creatinine Blood Type Antibody Screen Crossmatch 12/08/16 12/08/16 12/08/16 14:00 16:45 21:01 WBC RBC Hgb 10.6 L D Hct 32.0 L D MCV MCH MCHC Differential RDW Plt Count MPV Neutrophils % Band Neutrophils % Lymphocytes % Monocytes % Eosinophils % Basophils % Neutrophils (Manual) Lymphocytes Monocytes Eosinophils Platelet Estimate Anisocytosis Eos Smear Source Eos Smear Total Cells PT INR Specimen Source Sample Site pH pCO2 pO2 HCO3 Base Excess O2 Saturation Isidro Test Vent Rate Inspired O2 Tidal Volume PEEP Pressure (ins/psv/peep) Critical Value Sodium Potassium Chloride Carbon Dioxide Anion Gap BUN Creatinine Est GFR ( Amer) Est GFR (Non-Af Amer) BUN/Creatinine Ratio Glucose POC Glucose 150 H 247 H Whole Bld Lactic Acid Uric Acid Calcium Magnesium Total Bilirubin AST ALT Alkaline Phosphatase Total Protein Albumin Globulin Albumin/Globulin Ratio TSH Urine Source Urine Color Urine Clarity Urine pH Ur Specific [place] Urine Protein Urine Glucose (UA) Urine Ketones Urine Blood Urine Nitrate Urine Bilirubin Urine Urobilinogen Ur Leukocyte Esterase Urine RBC Urine WBC Ur Epithelial Cells Triple Phos Crystals Urine Bacteria Urine Osmolality Ur Random Sodium Urine Creatinine Blood Type Antibody Screen Crossmatch 12/09/16 12/09/16 05:30 05:30 WBC 12.7 H RBC 3.49 L Hgb 10.0 L Hct 30.2 L MCV 86.7 MCH 28.8 MCHC Differential 33.2 RDW 18.4 Plt Count 129 L D MPV 11.4 Neutrophils % 84.6 H Band Neutrophils % Lymphocytes % 9.5 L Monocytes % 4.1 Eosinophils % 1.8 Basophils % 0.0 Neutrophils (Manual) Lymphocytes Monocytes Eosinophils Platelet Estimate Anisocytosis Eos Smear Source Eos Smear Total Cells PT INR Specimen Source Sample Site pH pCO2 pO2 HCO3 Base Excess O2 Saturation Isidro Test Vent Rate Inspired O2 Tidal Volume PEEP Pressure (ins/psv/peep) Critical Value Sodium 142 Potassium 4.2 Chloride 116 H Carbon Dioxide 17.9 L Anion Gap 12.3 BUN 64 H Creatinine 2.5 H Est GFR ( Amer) TNP Est GFR (Non-Af Amer) TNP BUN/Creatinine Ratio 25.6 Glucose 304 H* POC Glucose Whole Bld Lactic Acid Uric Acid Calcium 8.1 L Magnesium Total Bilirubin 0.6 AST 12 L ALT 6 L Alkaline Phosphatase 286 H Total Protein 4.4 L Albumin 1.8 L Globulin 2.6 Albumin/Globulin Ratio 0.7 L TSH Urine Source Urine Color Urine Clarity Urine pH Ur Specific [place] Urine Protein Urine Glucose (UA) Urine Ketones Urine Blood Urine Nitrate Urine Bilirubin Urine Urobilinogen Ur Leukocyte Esterase Urine RBC Urine WBC Ur Epithelial Cells Triple Phos Crystals Urine Bacteria Urine Osmolality Ur Random Sodium Urine Creatinine Blood Type Antibody Screen Crossmatch Hospital Course: Patient was hospitalized, consult with GI, Nefro, Surgery and Pulmonology were requested and recommendations were follow. Na and renal function improving, PEG was placed, Colostomy was done. patient is DC to SNF. Treatment: Patient was started with D5 IV, PEG was placed, Continue with SNF meds, Colostomy was done, patient was extubated yesterday. Disposition: Other Care w/in this hosp Home Medications: Home Medication Medication Instructions Recorded Type Acetaminophen [Tylenol] 650 mg PO Q6H PRN tab 07/05/16 Rx Captopril [Capoten 25 mg Tab] 25 mg PO BID tab 07/05/16 Rx Sodium Chloride Tab [NaCL Tab] 1 gm PO BID tab 07/05/16 Rx cloNIDine HCl [Catapres] 0.1 mg PO Q8HR PRN tab 07/05/16 Rx Aspirin [Aspirin Chewable] 81 mg PO DAILY 10/24/16 History Insulin Aspart Sliding Scale 0 units SUBQ ACHS 10/24/16 History [NovoLOG INSULIN SLIDING SCALE] Insulin Glargine, Recombinan 35 units SUBQ HS 10/24/16 History [Lantus] Lorazepam [Ativan] 1 mg PO HS PRN 10/24/16 History Memory Builder 3 tab PO BID 10/24/16 History Multivitamin with Minerals 1 tab PO DAILY 10/24/16 History [Multivitamins with Minerals] Bisacodyl [Dulcolax 5 Mg Ec Tab] 10 mg PO BID 12/01/16 History Hydrocodone/APAP 5mg/325mg [Tyrone 1 tab PO X1 12/01/16 History 5mg/325mg] Sennosides A and B [Senna] 8.6 mg PO DAILY 12/01/16 History Inpatient Medications: Current Medications Acetaminophen (Tylenol) 650 mg PO Q6H PRN PRN Reason: Mild Pain or Fever >101 Stop: 01/31/17 11:18 Albuterol/Ipratropium (Duoneb Neb) 3 ml HHN Q6HRT [facility] Stop: 02/04/17 12:59 Last Admin: 12/09/16 07:14 Dose: 3 ml Albuterol/Ipratropium (Duoneb Neb) 3 ml HHN Q2HRT PRN PRN Reason: Wheezing Stop: 02/04/17 10:02 Last Admin: 12/06/16 10:23 Dose: 3 ml Bisacodyl (Dulcolax 5 Mg Ec Tab) 10 mg PO BID [facility] Stop: 01/31/17 16:59 Last Admin: 12/08/16 19:10 Dose: Not Given Epoetin Esequiel (Epogen) 10,000 units SUBQ TuThSa [facility] Stop: 02/01/17 14:29 Last Admin: 12/08/16 14:33 Dose: 10,000 units Hydromorphone HCl (Dilaudid) 1 mg IVP Q6HR PRN PRN Reason: Pain (Moderate-Severe) Stop: 02/04/17 08:11 Last Admin: 12/08/16 02:17 Dose: 1 mg Piperacillin Sod/Tazobactam (Sod 2.25 gm/ Dextrose) 50 mls @ 100 mls/hr IV Q8H [facility] Stop: 02/03/17 10:59 Last Infusion: 12/09/16 04:10 Dose: Infused Metronidazole 500 mg/ (Miscellaneous) 100 mls @ 100 mls/hr IV Q8H [facility] Stop: 02/03/17 09:59 Last Infusion: 12/09/16 03:35 Dose: Infused Insulin Aspart (Novolog Insulin Sliding Scale) 0 units SUBQ ACHS [facility]ELLE PRN Reason: Protocol Stop: 01/31/17 07:29 Last Admin: 12/09/16 07:03 Dose: 7 units Insulin Detemir (Levemir Insulin) 10 units SUBQ HS [facility]ELLE PRN Reason: Protocol Stop: 02/03/17 20:59 Last Admin: 12/08/16 21:06 Dose: 10 unit Lactobacillus Rhamnosus (Culturelle) 1 each PO DAILY [facility] Stop: 02/07/17 08:59 Lorazepam (Ativan) 1 mg IVP Q8HR PRN; Protocol PRN Reason: AGITATION Stop: 02/04/17 19:42 Last Admin: 12/06/16 21:16 Dose: 1 mg Miscellaneous (Vte Chemical Prophylaxis Screen/ Admission) 1 ea MC PRN PRN PRN Reason: PROTOCOL Stop: 01/31/17 13:38 Miscellaneous (Clinical Monitoring) 1 ea MC DAILY PRN PRN Reason: RENAL Stop: 02/04/17 08:05 Miscellaneous (Probiotic Screen) 1 ea MC PRN PRN PRN Reason: PROTOCOL Stop: 02/06/17 09:59 Pantoprazole Sodium (Protonix) 40 mg IVP DAILY [facility] Stop: 02/01/17 08:59 Last Admin: 12/08/16 09:58 Dose: 40 mg Potassium Chloride (Potassium Chloride Elixir) 20 meq GT DAILY [facility] Stop: 02/05/17 09:14 Last Admin: 12/08/16 09:59 Dose: 20 meq Sodium Bicarbonate (Sodium Bicarbonate) 650 mg GT TID B[facility]ELLE PRN Reason: Protocol Stop: 02/05/17 20:59 Last Admin: 12/08/16 20:55 Dose: 650 mg Activity: Bed Rest Consults and Follow-Up: Hipolito Moncada [Active] - Consulting Speciality: Renal, Surgery Instructions: Joint Sprain
[2016-12-09] MEDS: Potassium Chloride Elixir 20 mEq /15 mL UDC GT SCH (09:13)
--- NOTE | 2016-12-09 09:40 | General Progress Note ---
Subjective - Review of Systems Service Date: 12/09/16 Events since last encounter: incision is healing well colostomy output good wound vac in place feeding via GT Objective - Results Result Diagrams: 12/09/16 05:30 12/09/16 05:30 Recent Labs: Laboratory Last Values WBC 12.7 Th/cmm (4.8-10.8) H 12/09/16 05:30 Corrected WBC (auto) 8.8 Th/cmm (4.8-10.8) 12/01/16 18:25 RBC 3.49 Mil/cmm (3.80-5.20) L 12/09/16 05:30 Hgb 10.0 gm/dL (12-16) L 12/09/16 05:30 Hct 30.2 % (41.0-60) L 12/09/16 05:30 MCV 86.7 fl (81-100) 12/09/16 05:30 MCH 28.8 pg (27.0-31.0) 12/09/16 05:30 MCHC Differential 33.2 pg (28.0-36.0) 12/09/16 05:30 RDW 18.4 % (11.5-20.0) 12/09/16 05:30 Plt Count 129 Th/cmm (150-400) L D 12/09/16 05:30 MPV 11.4 fl 12/09/16 05:30 Neutrophils % 84.6 % (40.0-80.0) H 12/09/16 05:30 Band Neutrophils % 2 % (0-10) 12/08/16 04:23 Lymphocytes % 9.5 % (20.0-50.0) L 12/09/16 05:30 Monocytes % 4.1 % (2.0-10.0) 12/09/16 05:30 Eosinophils % 1.8 % (0.0-5.0) 12/09/16 05:30 Basophils % 0.0 % (0.0-2.0) 12/09/16 05:30 Neutrophils (Manual) 78 % (40-80) 12/08/16 04:23 Lymphocytes 15 % (20-50) L 12/08/16 04:23 Monocytes 4 % (2-10) 12/08/16 04:23 Eosinophils 1 % (0-5) 12/08/16 04:23 Nucleated RBCs 5.0 % (0-0) H 12/01/16 18:25 Atypical Lymphocytes 1 % 12/01/16 18:25 Platelet Estimate SLIGHT DECREASED (NORMAL) 12/08/16 04:23 Platelet Morphology NORMAL (NORMAL) 12/01/16 18:25 Anisocytosis 2+ 12/03/16 05:35 RBC Morph Micro Appear ABNORMAL (NORMAL) 12/01/16 18:25 Eos Smear Source URINE 12/03/16 06:30 Eos Smear Total Cells NONE SEEN (NONE SEEN) 12/03/16 06:30 PT 11.2 SECONDS (9.5-11.5) 12/03/16 05:35 INR 1.08 (0.5-1.4) 12/03/16 05:35 PTT (Actin FS) 19.6 SECONDS (26.0-38.0) L 12/01/16 18:25 Specimen Source Arterial 12/08/16 11:25 Sample Site Left Radial 12/08/16 11:25 pH 7.55 (7.35-7.45) H 12/08/16 11:25 pCO2 11.0 mmHg (35.0-45.0) L* 12/08/16 11:25 pO2 224.0 mmHg (80.0-100.0) H 12/08/16 11:25 HCO3 17.7 mEq/L (20.0-26.0) L 12/08/16 11:25 Base Excess -9.4 mEq/L (-3.0-3.0) L 12/08/16 11:25 O2 Saturation 100.0 % (92.0-100.0) 12/08/16 11:25 Isidro Test YES 12/08/16 11:25 Vent Rate NA 12/08/16 11:25 Inspired O2 40 12/08/16 11:25 Tidal Volume NA 12/08/16 11:25 PEEP NA 12/08/16 11:25 Pressure (ins/psv/peep) NA 12/08/16 11:25 Critical Value SUSANNAH RADHA 12/08/16 11:25 Sodium 142 mEq/L (136-145) 12/09/16 05:30 Potassium 4.2 mEq/L (3.5-5.1) 12/09/16 05:30 Chloride 116 mEq/L (98-107) H 12/09/16 05:30 Carbon Dioxide 17.9 mEq/L (21.0-31.0) L 12/09/16 05:30 Anion Gap 12.3 (7.0-16.0) 12/09/16 05:30 BUN 64 mg/dL (7-25) H 12/09/16 05:30 Creatinine 2.5 mg/dL (0.6-1.2) H 12/09/16 05:30 Est GFR ( Amer) TNP 12/09/16 05:30 Est GFR (Non-Af Amer) TNP 12/09/16 05:30 BUN/Creatinine Ratio 25.6 12/09/16 05:30 Glucose 304 mg/dL (40-70) H* 12/09/16 05:30 POC Glucose 247 MG/DL (70 - 105) H 12/08/16 21:01 Hemoglobin A1c % 9.0 % (4.0-6.0) H 12/01/16 18:25 Whole Bld Lactic Acid 2.84 mmol/L (0.60-1.99) H* 12/05/16 12:05 Uric Acid 11.6 mg/dL (2.3-6.6) H 12/03/16 05:35 Calcium 8.1 mg/dL (8.6-10.3) L 12/09/16 05:30 Magnesium 2.7 mg/dL (1.9-2.7) 12/03/16 05:35 Total Bilirubin 0.6 mg/dL (0.3-1.0) 12/09/16 05:30 AST 12 U/L (13-39) L 12/09/16 05:30 ALT 6 U/L (7-52) L 12/09/16 05:30 Alkaline Phosphatase 286 U/L (34-104) H 12/09/16 05:30 Total Protein 4.4 gm/dL (6.0-8.3) L 12/09/16 05:30 Albumin 1.8 gm/dL (3.7-5.3) L 12/09/16 05:30 Globulin 2.6 gm/dL 12/09/16 05:30 Albumin/Globulin Ratio 0.7 (1.0-1.8) L 12/09/16 05:30 TSH 2.49 uIU/ml (0.34-5.60) 12/03/16 05:35 Urine Source SOTO [place] 12/02/16 14:56 Urine Color YELLOW 12/02/16 14:56 Urine Clarity HAZY (CLEAR) 12/02/16 14:56 Urine pH 8.0 (4.6 - 8.0) 12/02/16 14:56 Ur Specific [place] 1.015 (1.005-1.030) 12/02/16 14:56 Urine Protein 100 mg/dL (NEGATIVE) H 12/02/16 14:56 Urine Glucose (UA) 500 mg/dL (NEGATIVE) H 12/02/16 14:56 Urine Ketones NEGATIVE mg/dL (NEGATIVE) 12/02/16 14:56 Urine Blood MODERATE (NEGATIVE) H 12/02/16 14:56 Urine Nitrate POSITIVE (NEGATIVE) H 12/02/16 14:56 Urine Bilirubin NEGATIVE (NEGATIVE) 12/02/16 14:56 Urine Urobilinogen 0.2 E.U./dL (0.2 - 1.0) 12/02/16 14:56 Ur Leukocyte Esterase MODERATE (NEGATIVE) H 12/02/16 14:56 Urine RBC 5-10 /hpf (0-5) H 12/02/16 14:56 Urine WBC 50-100 /hpf (0-5) H 12/02/16 14:56 Ur Epithelial Cells FEW /lpf (FEW) 12/02/16 14:56 Triple Phos Crystals MODERATE /hpf (FEW) 12/02/16 14:56 Urine Bacteria MANY /hpf (NONE SEEN) 12/02/16 14:56 Urine Osmolality 488 mOsmol/kg 12/03/16 06:30 Ur Random Sodium 75 mmol/L 12/03/16 06:30 Urine Creatinine 49.0 mg/dl (28.0-217.0) 12/03/16 06:30 Blood Type O POSITIVE 12/08/16 04:23 Antibody Screen NEGATIVE 12/08/16 04:23 Crossmatch See Detail 12/08/16 04:23 - Physical Exam Vitals and I&O: Vital Signs Temp 97.6 F 12/09/16 05:00 Pulse 84 12/09/16 07:14 Resp 22 12/09/16 07:14 BP 132/65 12/09/16 07:00 Pulse Ox 100 12/09/16 07:14 Intake & Output 12/08/16 12/09/16 12/09/16 18:59 06:59 18:59 Intake Total 1350 2075 Output Total 1100 1650 Balance 250 425 Weight (lbs) 55.389 kg 55.389 kg Intake: Intake, IV Amount 1100 1095 Dextrose 5% 1,000 ml @ 50 1000 745 mls/hr IV .Q20H [facility] Rx#: [id number] Piperacillin Sodium/ 150 Tazobact 2.25 gm In Dextrose 5% 50 ml @ 100 mls/hr IV Q8H [facility] Rx#: [id number] metroNIDAZOLE 500mg/NS 100 200 100mL 500 mg In Premix Fluid 1 bag @ 100 mls/hr IV Q8H [facility] Rx#:[id number] Tube Feeding 720 Blood Product 250 Other 260 Output: Urine 900 900 Stool 150 750 Other 50 Other: # Bowel Movements 1 Active Medications: Current Medications Acetaminophen (Tylenol) 650 mg PO Q6H PRN PRN Reason: Mild Pain or Fever >101 Stop: 01/31/17 11:18 Albuterol/Ipratropium (Duoneb Neb) 3 ml HHN Q6HRT [facility] Stop: 02/04/17 12:59 Last Admin: 12/09/16 07:14 Dose: 3 ml Albuterol/Ipratropium (Duoneb Neb) 3 ml HHN Q2HRT PRN PRN Reason: Wheezing Stop: 02/04/17 10:02 Last Admin: 12/06/16 10:23 Dose: 3 ml Bisacodyl (Dulcolax 5 Mg Ec Tab) 10 mg PO BID [facility] Stop: 01/31/17 16:59 Last Admin: 12/08/16 19:10 Dose: Not Given Epoetin Esequiel (Epogen) 10,000 units SUBQ TuThSa [facility] Stop: 02/01/17 14:29 Last Admin: 12/08/16 14:33 Dose: 10,000 units Hydromorphone HCl (Dilaudid) 1 mg IVP Q6HR PRN PRN Reason: Pain (Moderate-Severe) Stop: 02/04/17 08:11 Last Admin: 12/08/16 02:17 Dose: 1 mg Piperacillin Sod/Tazobactam (Sod 2.25 gm/ Dextrose) 50 mls @ 100 mls/hr IV Q8H [facility] Stop: 02/03/17 10:59 Last Infusion: 12/09/16 04:10 Dose: Infused Metronidazole 500 mg/ (Miscellaneous) 100 mls @ 100 mls/hr IV Q8H [facility] Stop: 02/03/17 09:59 Last Infusion: 12/09/16 03:35 Dose: Infused Insulin Aspart (Novolog Insulin Sliding Scale) 0 units SUBQ ACHS [facility] PRN Reason: Protocol Stop: 01/31/17 07:29 Last Admin: 12/09/16 07:03 Dose: 7 units Insulin Detemir (Levemir Insulin) 10 units SUBQ HS [facility]LE PRN Reason: Protocol Stop: 02/03/17 20:59 Last Admin: 12/08/16 21:06 Dose: 10 unit Lactobacillus Rhamnosus (Culturelle) 1 each PO DAILY [facility] Stop: 02/07/17 08:59 Last Admin: 12/09/16 09:12 Dose: 1 each Lorazepam (Ativan) 1 mg IVP Q8HR PRN; Protocol PRN Reason: AGITATION Stop: 02/04/17 19:42 Last Admin: 12/06/16 21:16 Dose: 1 mg Miscellaneous (Vte Chemical Prophylaxis Screen/ Admission) 1 ea MC PRN PRN PRN Reason: PROTOCOL Stop: 01/31/17 13:38 Miscellaneous (Clinical Monitoring) 1 ea MC DAILY PRN PRN Reason: RENAL Stop: 02/04/17 08:05 Miscellaneous (Probiotic Screen) 1 ea PRN PRN PRN Reason: PROTOCOL Stop: 02/06/17 09:59 Pantoprazole Sodium (Protonix) 40 mg IVP DAILY [facility] Stop: 02/01/17 08:59 Last Admin: 12/09/16 09:12 Dose: 40 mg Potassium Chloride (Potassium Chloride Elixir) 20 meq GT DAILY [facility] Stop: 02/05/17 09:14 Last Admin: 12/09/16 09:13 Dose: 20 meq Sodium Bicarbonate (Sodium Bicarbonate) 650 mg GT TID BRIELLE PRN Reason: Protocol Stop: 02/05/17 20:59 Last Admin: 12/09/16 09:12 Dose: 650 mg General: No acute distress, Other (Intubated.) HEENT: Atraumatic Neck: Supple Cardiovascular: Regular rate Lungs: Clear to auscultation, Other (few rhonchi) Abdomen: Bowel sounds, Soft, Other (PEG in place, Colostomy in place) Extremities: Other (No edema), no Edema Neurological: Sensation intact, Other (Non ambulatory) Skin: no Significant lesion Psych/Mental Status: Mood NL, Other (Awake, alert, restless, intubated) - Procedures Procedures: Procedures Procedure Code Date BYPASS DESCENDING COLON TO CUTANEOUS, OPEN APPROACH [id number] 12/02/16 COLOSTOMY 06885 12/02/16 CHAGO BONE 20 SQ CM/< [id number] 12/02/16 CHAGO MUSC/FASCIA 20 SQ CM/< [id number] 10/24/16 CHAGO SUBQ TISSUE 20 SQ CM/< [id number] 12/02/16 EXCISION OF L FOOT SUBCU/FASCIA, OPEN APPROACH [id number] 12/02/16 EXCISION OF LEFT HIP MUSCLE, OPEN APPROACH [id number] 10/24/16 EXCISION OF LEFT PELVIC BONE, OPEN APPROACH [id number] 12/02/16 EXCISION OF R FOOT SUBCU/FASCIA, OPEN APPROACH [id number] 12/02/16 RESPIRATORY VENTILATION, 24-96 CONSECUTIVE HOURS [id number] 12/02/16 Assessment/Plan - Problem List Patient Problems: All Active Problems POOR ORAL INTAKE AND SWALLOWING (Acute) SACRAL AND BILATERAL BUTTOCK SKIN ULCERS (Acute) Nutritional Asmnt/Malnutr-PDOC - Dietary Evaluation Malnutrition Findings (Please click <Entered> for more info): Nutritional Asmnt/Malnutrition Start: 12/02/16 14: 44 Text: Status: Complete Freq: Document 12/02/16 14:44 GSUN (Rec: 12/02/16 15:19 [facility] Nutritional Asmnt/Malnutrition Patient General Information Nutritional Screening Consult Diagnosis AKF, sacral decubitus ulcer stage IV, HTN, DM, dementia, chronic anemia Pertinent Medical Hx/Surgical Hx CAD, CVA, dementia, psychosis, muscle atrophy, AKF, DM, decubitus ulcer stage IV Subjective Information 81 year old female from SNF. RD consult for low Elliot and elevated blood glucose. Pt was awake, unable to provide nutrition hx. Family at bedside, spoke to family and HAI Pimentel regarding nutrition plan of care, PEG placement consent obtained. Family has no other questions at this time. 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 Per nursing adm notes , 4-5lb wt loss in 2 weeks. Per family, unaware of UBW, aware of recent wt loss, stated pt stopped eating ~3-4 days ago. Loose skin, moderate to severe muslce fat wasting to chest and clavicles. Current Diet Order/ Nutrition Support NPO Pertinent Medications Dulcolax, D5-0.45ns, Novolog Pertinent Labs 12/01: A1c 9H 12/02: sodium 173H, potassium 5.3H, BUN 169H, creatinie 5.8H , glucose 238H, calcium 10.8H Nutritional Hx/Data Height 1.52 m Height (Calculated Centimeters) 152.4 Current Weight (lbs) 43.545 kg Weight (Calculated Kilograms) 43.5 Weight (Calculated Grams) 65176.9 [place] Body Weight 100 Recent Weight Change Yes Weight Status Approriate GI Symptoms Usual diet at home [facility]: pureed, [facility] Skin Integrity/Comment: Elliot 11. Sacral decubitus ulcer stage IV. Estimated Nutritional Goals Calories/Kcals/Kg IBW 100lb/45.5kg Kcals Calculated 1365-1593kcal (30-35kcal/kg) Protein Calculated 68-73g (1.4-1.6g/kg, ulcer vs renal, ?HD) Fluid: ml Per MD Nutritional Problem 3. Problem Problem Altered nutrition related laboratory values related to Etiology DM aeb Signs/Symptoms: A1c 9H, glucose 238H 2. Problem Problem Increased kcal and prot needs related to Etiology skin integrity, recent weight loss aeb Signs/Symptoms: Sacral decubitus ulcer stage IV, wt loss 4-5lb in 2 weeks per nursing adm notes, moderate to seevre muslce/fat wasting to chest and clavicles 1. Problem Problem Impaired nutrient utilization related to Etiology acute kidney injury aeb Signs/Symptoms: potassium 5.3H, BUN 169H, creatinie 5.8H, calcium 10.8H Intervention/Recommendation Comments 1. Discussed enteral nutrition with family. Family has no further questions at this time . 2. When medically feasible to initiate feeding, recommend Novasource Renal at 30ml/hr x 24hrs, providing 720ml total volume, 1440kcal, 65g protein. Initiate at 10ml/hr for first 24 hrs, monitor for refeeding syndrome and tolerance, increase by 5ml/hr q12hrs until goal. 3. Recommend 1 packet Arginaid daily via tube for wound healing. 4. Monitor weight closely. Hx 4-5lb wt loss in 2 weeks per nursing adm note. Expected Outcomes/Goals Expected Outcomes/Goals 1. Pt to meet at least 75% of estimated nutritinoal eneds on tube feeding with tolerance.
--- NOTE | 2016-12-09 09:40 | General Progress Note ---
Subjective - Review of Systems Service Date: 12/09/16 Events since last encounter: incision is healing well colostomy output good wound vac in place feeding via GT Objective - Results Result Diagrams: 12/09/16 05:30 12/09/16 05:30 Recent Labs: Laboratory Last Values WBC 12.7 Th/cmm (4.8-10.8) H 12/09/16 05:30 Corrected WBC (auto) 8.8 Th/cmm (4.8-10.8) 12/01/16 18:25 RBC 3.49 Mil/cmm (3.80-5.20) L 12/09/16 05:30 Hgb 10.0 gm/dL (12-16) L 12/09/16 05:30 Hct 30.2 % (41.0-60) L 12/09/16 05:30 MCV 86.7 fl (81-100) 12/09/16 05:30 MCH 28.8 pg (27.0-31.0) 12/09/16 05:30 MCHC Differential 33.2 pg (28.0-36.0) 12/09/16 05:30 RDW 18.4 % (11.5-20.0) 12/09/16 05:30 Plt Count 129 Th/cmm (150-400) L D 12/09/16 05:30 MPV 11.4 fl 12/09/16 05:30 Neutrophils % 84.6 % (40.0-80.0) H 12/09/16 05:30 Band Neutrophils % 2 % (0-10) 12/08/16 04:23 Lymphocytes % 9.5 % (20.0-50.0) L 12/09/16 05:30 Monocytes % 4.1 % (2.0-10.0) 12/09/16 05:30 Eosinophils % 1.8 % (0.0-5.0) 12/09/16 05:30 Basophils % 0.0 % (0.0-2.0) 12/09/16 05:30 Neutrophils (Manual) 78 % (40-80) 12/08/16 04:23 Lymphocytes 15 % (20-50) L 12/08/16 04:23 Monocytes 4 % (2-10) 12/08/16 04:23 Eosinophils 1 % (0-5) 12/08/16 04:23 Nucleated RBCs 5.0 % (0-0) H 12/01/16 18:25 Atypical Lymphocytes 1 % 12/01/16 18:25 Platelet Estimate SLIGHT DECREASED (NORMAL) 12/08/16 04:23 Platelet Morphology NORMAL (NORMAL) 12/01/16 18:25 Anisocytosis 2+ 12/03/16 05:35 RBC Morph Micro Appear ABNORMAL (NORMAL) 12/01/16 18:25 Eos Smear Source URINE 12/03/16 06:30 Eos Smear Total Cells NONE SEEN (NONE SEEN) 12/03/16 06:30 PT 11.2 SECONDS (9.5-11.5) 12/03/16 05:35 INR 1.08 (0.5-1.4) 12/03/16 05:35 PTT (Actin FS) 19.6 SECONDS (26.0-38.0) L 12/01/16 18:25 Specimen Source Arterial 12/08/16 11:25 Sample Site Left Radial 12/08/16 11:25 pH 7.55 (7.35-7.45) H 12/08/16 11:25 pCO2 11.0 mmHg (35.0-45.0) L* 12/08/16 11:25 pO2 224.0 mmHg (80.0-100.0) H 12/08/16 11:25 HCO3 17.7 mEq/L (20.0-26.0) L 12/08/16 11:25 Base Excess -9.4 mEq/L (-3.0-3.0) L 12/08/16 11:25 O2 Saturation 100.0 % (92.0-100.0) 12/08/16 11:25 Isidro Test YES 12/08/16 11:25 Vent Rate NA 12/08/16 11:25 Inspired O2 40 12/08/16 11:25 Tidal Volume NA 12/08/16 11:25 PEEP NA 12/08/16 11:25 Pressure (ins/psv/peep) NA 12/08/16 11:25 Critical Value SUSANNAH RADHA 12/08/16 11:25 Sodium 142 mEq/L (136-145) 12/09/16 05:30 Potassium 4.2 mEq/L (3.5-5.1) 12/09/16 05:30 Chloride 116 mEq/L (98-107) H 12/09/16 05:30 Carbon Dioxide 17.9 mEq/L (21.0-31.0) L 12/09/16 05:30 Anion Gap 12.3 (7.0-16.0) 12/09/16 05:30 BUN 64 mg/dL (7-25) H 12/09/16 05:30 Creatinine 2.5 mg/dL (0.6-1.2) H 12/09/16 05:30 Est GFR ( Amer) TNP 12/09/16 05:30 Est GFR (Non-Af Amer) TNP 12/09/16 05:30 BUN/Creatinine Ratio 25.6 12/09/16 05:30 Glucose 304 mg/dL (40-70) H* 12/09/16 05:30 POC Glucose 247 MG/DL (70 - 105) H 12/08/16 21:01 Hemoglobin A1c % 9.0 % (4.0-6.0) H 12/01/16 18:25 Whole Bld Lactic Acid 2.84 mmol/L (0.60-1.99) H* 12/05/16 12:05 Uric Acid 11.6 mg/dL (2.3-6.6) H 12/03/16 05:35 Calcium 8.1 mg/dL (8.6-10.3) L 12/09/16 05:30 Magnesium 2.7 mg/dL (1.9-2.7) 12/03/16 05:35 Total Bilirubin 0.6 mg/dL (0.3-1.0) 12/09/16 05:30 AST 12 U/L (13-39) L 12/09/16 05:30 ALT 6 U/L (7-52) L 12/09/16 05:30 Alkaline Phosphatase 286 U/L (34-104) H 12/09/16 05:30 Total Protein 4.4 gm/dL (6.0-8.3) L 12/09/16 05:30 Albumin 1.8 gm/dL (3.7-5.3) L 12/09/16 05:30 Globulin 2.6 gm/dL 12/09/16 05:30 Albumin/Globulin Ratio 0.7 (1.0-1.8) L 12/09/16 05:30 TSH 2.49 uIU/ml (0.34-5.60) 12/03/16 05:35 Urine Source SOTO PORT 12/02/16 14:56 Urine Color YELLOW 12/02/16 14:56 Urine Clarity HAZY (CLEAR) 12/02/16 14:56 Urine pH 8.0 (4.6 - 8.0) 12/02/16 14:56 Ur Specific [place] 1.015 (1.005-1.030) 12/02/16 14:56 Urine Protein 100 mg/dL (NEGATIVE) H 12/02/16 14:56 Urine Glucose (UA) 500 mg/dL (NEGATIVE) H 12/02/16 14:56 Urine Ketones NEGATIVE mg/dL (NEGATIVE) 12/02/16 14:56 Urine Blood MODERATE (NEGATIVE) H 12/02/16 14:56 Urine Nitrate POSITIVE (NEGATIVE) H 12/02/16 14:56 Urine Bilirubin NEGATIVE (NEGATIVE) 12/02/16 14:56 Urine Urobilinogen 0.2 E.U./dL (0.2 - 1.0) 12/02/16 14:56 Ur Leukocyte Esterase MODERATE (NEGATIVE) H 12/02/16 14:56 Urine RBC 5-10 /hpf (0-5) H 12/02/16 14:56 Urine WBC 50-100 /hpf (0-5) H 12/02/16 14:56 Ur Epithelial Cells FEW /lpf (FEW) 12/02/16 14:56 Triple Phos Crystals MODERATE /hpf (FEW) 12/02/16 14:56 Urine Bacteria MANY /hpf (NONE SEEN) 12/02/16 14:56 Urine Osmolality 488 mOsmol/kg 12/03/16 06:30 Ur Random Sodium 75 mmol/L 12/03/16 06:30 Urine Creatinine 49.0 mg/dl (28.0-217.0) 12/03/16 06:30 Blood Type O POSITIVE 12/08/16 04:23 Antibody Screen NEGATIVE 12/08/16 04:23 Crossmatch See Detail 12/08/16 04:23 - Physical Exam Vitals and I&O: Vital Signs Temp 97.6 F 12/09/16 05:00 Pulse 84 12/09/16 07:14 Resp 22 12/09/16 07:14 BP 132/65 12/09/16 07:00 Pulse Ox 100 12/09/16 07:14 Intake & Output 12/08/16 12/09/16 12/09/16 18:59 06:59 18:59 Intake Total 1350 2075 Output Total 1100 1650 Balance 250 425 Weight (lbs) 55.389 kg 55.389 kg Intake: Intake, IV Amount 1100 1095 Dextrose 5% 1,000 ml @ 50 1000 745 mls/hr IV .Q20H [facility] Rx#: [id number] Piperacillin Sodium/ 150 Tazobact 2.25 gm In Dextrose 5% 50 ml @ 100 mls/hr IV Q8H [facility] Rx#: [id number] metroNIDAZOLE 500mg/NS 100 200 100mL 500 mg In Premix Fluid 1 bag @ 100 mls/hr IV Q8H [facility] Rx#:[id number] Tube Feeding 720 Blood Product 250 Other 260 Output: Urine 900 900 Stool 150 750 Other 50 Other: # Bowel Movements 1 Active Medications: Current Medications Acetaminophen (Tylenol) 650 mg PO Q6H PRN PRN Reason: Mild Pain or Fever >101 Stop: 01/31/17 11:18 Albuterol/Ipratropium (Duoneb Neb) 3 ml HHN Q6HRT [facility] Stop: 02/04/17 12:59 Last Admin: 12/09/16 07:14 Dose: 3 ml Albuterol/Ipratropium (Duoneb Neb) 3 ml HHN Q2HRT PRN PRN Reason: Wheezing Stop: 02/04/17 10:02 Last Admin: 12/06/16 10:23 Dose: 3 ml Bisacodyl (Dulcolax 5 Mg Ec Tab) 10 mg PO BID [facility] Stop: 01/31/17 16:59 Last Admin: 12/08/16 19:10 Dose: Not Given Epoetin Esequiel (Epogen) 10,000 units SUBQ TuThSa [facility] Stop: 02/01/17 14:29 Last Admin: 12/08/16 14:33 Dose: 10,000 units Hydromorphone HCl (Dilaudid) 1 mg IVP Q6HR PRN PRN Reason: Pain (Moderate-Severe) Stop: 02/04/17 08:11 Last Admin: 12/08/16 02:17 Dose: 1 mg Piperacillin Sod/Tazobactam (Sod 2.25 gm/ Dextrose) 50 mls @ 100 mls/hr IV Q8H [facility] Stop: 02/03/17 10:59 Last Infusion: 12/09/16 04:10 Dose: Infused Metronidazole 500 mg/ (Miscellaneous) 100 mls @ 100 mls/hr IV Q8H [facility] Stop: 02/03/17 09:59 Last Infusion: 12/09/16 03:35 Dose: Infused Insulin Aspart (Novolog Insulin Sliding Scale) 0 units SUBQ ACHS [facility] PRN Reason: Protocol Stop: 01/31/17 07:29 Last Admin: 12/09/16 07:03 Dose: 7 units Insulin Detemir (Levemir Insulin) 10 units SUBQ HS [facility] PRN Reason: Protocol Stop: 02/03/17 20:59 Last Admin: 12/08/16 21:06 Dose: 10 unit Lactobacillus Rhamnosus (Culturelle) 1 each PO DAILY [facility] Stop: 02/07/17 08:59 Last Admin: 12/09/16 09:12 Dose: 1 each Lorazepam (Ativan) 1 mg IVP Q8HR PRN; Protocol PRN Reason: AGITATION Stop: 02/04/17 19:42 Last Admin: 12/06/16 21:16 Dose: 1 mg Miscellaneous (Vte Chemical Prophylaxis Screen/ Admission) 1 ea MC PRN PRN PRN Reason: PROTOCOL Stop: 01/31/17 13:38 Miscellaneous (Clinical Monitoring) 1 ea MC DAILY PRN PRN Reason: RENAL Stop: 02/04/17 08:05 Miscellaneous (Probiotic Screen) 1 ea PRN PRN PRN Reason: PROTOCOL Stop: 02/06/17 09:59 Pantoprazole Sodium (Protonix) 40 mg IVP DAILY [facility] Stop: 02/01/17 08:59 Last Admin: 12/09/16 09:12 Dose: 40 mg Potassium Chloride (Potassium Chloride Elixir) 20 meq GT DAILY [facility] Stop: 02/05/17 09:14 Last Admin: 12/09/16 09:13 Dose: 20 meq Sodium Bicarbonate (Sodium Bicarbonate) 650 mg GT TID [facility] PRN Reason: Protocol Stop: 02/05/17 20:59 Last Admin: 12/09/16 09:12 Dose: 650 mg General: No acute distress, Other (Intubated.) HEENT: Atraumatic Neck: Supple Cardiovascular: Regular rate Lungs: Clear to auscultation, Other (few rhonchi) Abdomen: Bowel sounds, Soft, Other (PEG in place, Colostomy in place) Extremities: Other (No edema), no Edema Neurological: Sensation intact, Other (Non ambulatory) Skin: no Significant lesion Psych/Mental Status: Mood NL, Other (Awake, alert, restless, intubated) - Procedures Procedures: Procedures Procedure Code Date BYPASS DESCENDING COLON TO CUTANEOUS, OPEN APPROACH [id number] 12/02/16 COLOSTOMY 99632 12/02/16 CHAGO BONE 20 SQ CM/< [id number] 12/02/16 CHAGO MUSC/FASCIA 20 SQ CM/< [id number] 10/24/16 CHAGO SUBQ TISSUE 20 SQ CM/< 36618 12/02/16 EXCISION OF L FOOT SUBCU/FASCIA, OPEN APPROACH [id number] 12/02/16 EXCISION OF LEFT HIP MUSCLE, OPEN APPROACH [id number] 10/24/16 EXCISION OF LEFT PELVIC BONE, OPEN APPROACH [id number] 12/02/16 EXCISION OF R FOOT SUBCU/FASCIA, OPEN APPROACH [id number] 12/02/16 RESPIRATORY VENTILATION, 24-96 CONSECUTIVE HOURS [id number] 12/02/16 Assessment/Plan - Problem List Patient Problems: All Active Problems POOR ORAL INTAKE AND SWALLOWING (Acute) SACRAL AND BILATERAL BUTTOCK SKIN ULCERS (Acute) Nutritional Asmnt/Malnutr-PDOC - Dietary Evaluation Malnutrition Findings (Please click <Entered> for more info): Nutritional Asmnt/Malnutrition Start: 12/02/16 14: 44 Text: Status: Complete Freq: Document 12/02/16 14:44 GSUN (Rec: 12/02/16 15:19 [facility] Nutritional Asmnt/Malnutrition Patient General Information Nutritional Screening Consult Diagnosis AKF, sacral decubitus ulcer stage IV, HTN, DM, dementia, chronic anemia Pertinent Medical Hx/Surgical Hx CAD, CVA, dementia, psychosis, muscle atrophy, AKF, DM, decubitus ulcer stage IV Subjective Information 81 year old female from SNF. RD consult for low Elliot and elevated blood glucose. Pt was awake, unable to provide nutrition hx. Family at bedside, spoke to family and HAI Pimentel regarding nutrition plan of care, PEG placement consent obtained. Family has no other questions at this time. Elevated BUN, cigar sorter, K, family reported pt is not on dialysis, "possible HD today" per H&P. Per nursing adm notes , 4-5lb wt loss in 2 weeks. Per family, unaware of UBW, aware of recent wt loss, stated pt stopped eating ~3-4 days ago. Loose skin, moderate to severe muslce fat wasting to chest and clavicles. Current Diet Order/ Nutrition Support NPO Pertinent Medications Dulcolax, D5-0.45ns, Novolog Pertinent Labs 12/01: A1c 9H 12/02: sodium 173H, potassium 5.3H, BUN 169H, creatinie 5.8H , glucose 238H, calcium 10.8H Nutritional Hx/Data Height 1.52 m Height (Calculated Centimeters) 152.4 Current Weight (lbs) 43.545 kg Weight (Calculated Kilograms) 43.5 Weight (Calculated Grams) 74029.9 [place] Body Weight 100 Recent Weight Change Yes Weight Status Approriate GI Symptoms Usual diet at home [facility]: [facility] Skin Integrity/Comment: Elliot 11. Sacral decubitus ulcer stage IV. Estimated Nutritional Goals Calories/Kcals/Kg IBW 100lb/45.5kg Kcals Calculated 1365-1593kcal (30-35kcal/kg) Protein Calculated 68-73g (1.4-1.6g/kg, ulcer vs renal, ?HD) Fluid: ml Per MD Nutritional Problem 3. Problem Problem Altered nutrition related laboratory values related to Etiology DM aeb Signs/Symptoms: A1c 9H, glucose 238H 2. Problem Problem Increased kcal and prot needs related to Etiology skin integrity, recent weight loss aeb Signs/Symptoms: Sacral decubitus ulcer stage IV, wt loss 4-5lb in 2 weeks per nursing adm notes, moderate to seevre muslce/fat wasting to chest and clavicles 1. Problem Problem Impaired nutrient utilization related to Etiology acute kidney injury aeb Signs/Symptoms: potassium 5.3H, BUN 169H, creatinie 5.8H, calcium 10.8H Intervention/Recommendation Comments 1. Discussed enteral nutrition with family. Family has no further questions at this time . 2. When medically feasible to initiate feeding, recommend Novasource Renal at 30ml/hr x 24hrs, providing 720ml total volume, 1440kcal, 65g protein. Initiate at 10ml/hr for first 24 hrs, monitor for refeeding syndrome and tolerance, increase by 5ml/hr q12hrs until goal. 3. Recommend 1 packet Arginaid daily via tube for wound healing. 4. Monitor weight closely. Hx 4-5lb wt loss in 2 weeks per nursing adm note. Expected Outcomes/Goals Expected Outcomes/Goals 1. Pt to meet at least 75% of estimated nutritinoal eneds on tube feeding with tolerance.
--- NOTE | 2016-12-09 09:40 | General Progress Note ---
Subjective - Review of Systems Service Date: 12/09/16 Events since last encounter: incision is healing well colostomy output good wound vac in place feeding via GT Objective - Results Result Diagrams: 12/09/16 05:30 12/09/16 05:30 Recent Labs: Laboratory Last Values WBC 12.7 Th/cmm (4.8-10.8) H 12/09/16 05:30 Corrected WBC (auto) 8.8 Th/cmm (4.8-10.8) 12/01/16 18:25 RBC 3.49 Mil/cmm (3.80-5.20) L 12/09/16 05:30 Hgb 10.0 gm/dL (12-16) L 12/09/16 05:30 Hct 30.2 % (41.0-60) L 12/09/16 05:30 MCV 86.7 fl (81-100) 12/09/16 05:30 MCH 28.8 pg (27.0-31.0) 12/09/16 05:30 MCHC Differential 33.2 pg (28.0-36.0) 12/09/16 05:30 RDW 18.4 % (11.5-20.0) 12/09/16 05:30 Plt Count 129 Th/cmm (150-400) L D 12/09/16 05:30 MPV 11.4 fl 12/09/16 05:30 Neutrophils % 84.6 % (40.0-80.0) H 12/09/16 05:30 Band Neutrophils % 2 % (0-10) 12/08/16 04:23 Lymphocytes % 9.5 % (20.0-50.0) L 12/09/16 05:30 Monocytes % 4.1 % (2.0-10.0) 12/09/16 05:30 Eosinophils % 1.8 % (0.0-5.0) 12/09/16 05:30 Basophils % 0.0 % (0.0-2.0) 12/09/16 05:30 Neutrophils (Manual) 78 % (40-80) 12/08/16 04:23 Lymphocytes 15 % (20-50) L 12/08/16 04:23 Monocytes 4 % (2-10) 12/08/16 04:23 Eosinophils 1 % (0-5) 12/08/16 04:23 Nucleated RBCs 5.0 % (0-0) H 12/01/16 18:25 Atypical Lymphocytes 1 % 12/01/16 18:25 Platelet Estimate SLIGHT DECREASED (NORMAL) 12/08/16 04:23 Platelet Morphology NORMAL (NORMAL) 12/01/16 18:25 Anisocytosis 2+ 12/03/16 05:35 RBC Morph Micro Appear ABNORMAL (NORMAL) 12/01/16 18:25 Eos Smear Source URINE 12/03/16 06:30 Eos Smear Total Cells NONE SEEN (NONE SEEN) 12/03/16 06:30 PT 11.2 SECONDS (9.5-11.5) 12/03/16 05:35 INR 1.08 (0.5-1.4) 12/03/16 05:35 PTT (Actin FS) 19.6 SECONDS (26.0-38.0) L 12/01/16 18:25 Specimen Source Arterial 12/08/16 11:25 Sample Site Left Radial 12/08/16 11:25 pH 7.55 (7.35-7.45) H 12/08/16 11:25 pCO2 11.0 mmHg (35.0-45.0) L* 12/08/16 11:25 pO2 224.0 mmHg (80.0-100.0) H 12/08/16 11:25 HCO3 17.7 mEq/L (20.0-26.0) L 12/08/16 11:25 Base Excess -9.4 mEq/L (-3.0-3.0) L 12/08/16 11:25 O2 Saturation 100.0 % (92.0-100.0) 12/08/16 11:25 Isidro Test YES 12/08/16 11:25 Vent Rate NA 12/08/16 11:25 Inspired O2 40 12/08/16 11:25 Tidal Volume NA 12/08/16 11:25 PEEP NA 12/08/16 11:25 Pressure (ins/psv/peep) NA 12/08/16 11:25 Critical Value SUSANNAH RADHA 12/08/16 11:25 Sodium 142 mEq/L (136-145) 12/09/16 05:30 Potassium 4.2 mEq/L (3.5-5.1) 12/09/16 05:30 Chloride 116 mEq/L (98-107) H 12/09/16 05:30 Carbon Dioxide 17.9 mEq/L (21.0-31.0) L 12/09/16 05:30 Anion Gap 12.3 (7.0-16.0) 12/09/16 05:30 BUN 64 mg/dL (7-25) H 12/09/16 05:30 Creatinine 2.5 mg/dL (0.6-1.2) H 12/09/16 05:30 Est GFR ( Amer) TNP 12/09/16 05:30 Est GFR (Non-Af Amer) TNP 12/09/16 05:30 BUN/Creatinine Ratio 25.6 12/09/16 05:30 Glucose 304 mg/dL (40-70) H* 12/09/16 05:30 POC Glucose 247 MG/DL (70 - 105) H 12/08/16 21:01 Hemoglobin A1c % 9.0 % (4.0-6.0) H 12/01/16 18:25 Whole Bld Lactic Acid 2.84 mmol/L (0.60-1.99) H* 12/05/16 12:05 Uric Acid 11.6 mg/dL (2.3-6.6) H 12/03/16 05:35 Calcium 8.1 mg/dL (8.6-10.3) L 12/09/16 05:30 Magnesium 2.7 mg/dL (1.9-2.7) 12/03/16 05:35 Total Bilirubin 0.6 mg/dL (0.3-1.0) 12/09/16 05:30 AST 12 U/L (13-39) L 12/09/16 05:30 ALT 6 U/L (7-52) L 12/09/16 05:30 Alkaline Phosphatase 286 U/L (34-104) H 12/09/16 05:30 Total Protein 4.4 gm/dL (6.0-8.3) L 12/09/16 05:30 Albumin 1.8 gm/dL (3.7-5.3) L 12/09/16 05:30 Globulin 2.6 gm/dL 12/09/16 05:30 Albumin/Globulin Ratio 0.7 (1.0-1.8) L 12/09/16 05:30 TSH 2.49 uIU/ml (0.34-5.60) 12/03/16 05:35 Urine Source SOTO PORT 12/02/16 14:56 Urine Color YELLOW 12/02/16 14:56 Urine Clarity HAZY (CLEAR) 12/02/16 14:56 Urine pH 8.0 (4.6 - 8.0) 12/02/16 14:56 Ur Specific [place] 1.015 (1.005-1.030) 12/02/16 14:56 Urine Protein 100 mg/dL (NEGATIVE) H 12/02/16 14:56 Urine Glucose (UA) 500 mg/dL (NEGATIVE) H 12/02/16 14:56 Urine Ketones NEGATIVE mg/dL (NEGATIVE) 12/02/16 14:56 Urine Blood MODERATE (NEGATIVE) H 12/02/16 14:56 Urine Nitrate POSITIVE (NEGATIVE) H 12/02/16 14:56 Urine Bilirubin NEGATIVE (NEGATIVE) 12/02/16 14:56 Urine Urobilinogen 0.2 E.U./dL (0.2 - 1.0) 12/02/16 14:56 Ur Leukocyte Esterase MODERATE (NEGATIVE) H 12/02/16 14:56 Urine RBC 5-10 /hpf (0-5) H 12/02/16 14:56 Urine WBC 50-100 /hpf (0-5) H 12/02/16 14:56 Ur Epithelial Cells FEW /lpf (FEW) 12/02/16 14:56 Triple Phos Crystals MODERATE /hpf (FEW) 12/02/16 14:56 Urine Bacteria MANY /hpf (NONE SEEN) 12/02/16 14:56 Urine Osmolality 488 mOsmol/kg 12/03/16 06:30 Ur Random Sodium 75 mmol/L 12/03/16 06:30 Urine Creatinine 49.0 mg/dl (28.0-217.0) 12/03/16 06:30 Blood Type O POSITIVE 12/08/16 04:23 Antibody Screen NEGATIVE 12/08/16 04:23 Crossmatch See Detail 12/08/16 04:23 - Physical Exam Vitals and I&O: Vital Signs Temp 97.6 F 12/09/16 05:00 Pulse 84 12/09/16 07:14 Resp 22 12/09/16 07:14 BP 132/65 12/09/16 07:00 Pulse Ox 100 12/09/16 07:14 Intake & Output 12/08/16 12/09/16 12/09/16 18:59 06:59 18:59 Intake Total 1350 2075 Output Total 1100 1650 Balance 250 425 Weight (lbs) 55.389 kg 55.389 kg Intake: Intake, IV Amount 1100 1095 Dextrose 5% 1,000 ml @ 50 1000 745 mls/hr IV .Q20H [facility] Rx#: [id number] Piperacillin Sodium/ 150 Tazobact 2.25 gm In Dextrose 5% 50 ml @ 100 mls/hr IV Q8H [facility] Rx#: [id number] metroNIDAZOLE 500mg/NS 100 200 100mL 500 mg In Premix Fluid 1 bag @ 100 mls/hr IV Q8H [facility] Rx#:[id number] Tube Feeding 720 Blood Product 250 Other 260 Output: Urine 900 900 Stool 150 750 Other 50 Other: # Bowel Movements 1 Active Medications: Current Medications Acetaminophen (Tylenol) 650 mg PO Q6H PRN PRN Reason: Mild Pain or Fever >101 Stop: 01/31/17 11:18 Albuterol/Ipratropium (Duoneb Neb) 3 ml HHN Q6HRT [facility] Stop: 02/04/17 12:59 Last Admin: 12/09/16 07:14 Dose: 3 ml Albuterol/Ipratropium (Duoneb Neb) 3 ml HHN Q2HRT PRN PRN Reason: Wheezing Stop: 02/04/17 10:02 Last Admin: 12/06/16 10:23 Dose: 3 ml Bisacodyl (Dulcolax 5 Mg Ec Tab) 10 mg PO BID [facility] Stop: 01/31/17 16:59 Last Admin: 12/08/16 19:10 Dose: Not Given Epoetin Esequiel (Epogen) 10,000 units SUBQ TuThSa [facility] Stop: 02/01/17 14:29 Last Admin: 12/08/16 14:33 Dose: 10,000 units Hydromorphone HCl (Dilaudid) 1 mg IVP Q6HR PRN PRN Reason: Pain (Moderate-Severe) Stop: 02/04/17 08:11 Last Admin: 12/08/16 02:17 Dose: 1 mg Piperacillin Sod/Tazobactam (Sod 2.25 gm/ Dextrose) 50 mls @ 100 mls/hr IV Q8H [facility] Stop: 02/03/17 10:59 Last Infusion: 12/09/16 04:10 Dose: Infused Metronidazole 500 mg/ (Miscellaneous) 100 mls @ 100 mls/hr IV Q8H [facility] Stop: 02/03/17 09:59 Last Infusion: 12/09/16 03:35 Dose: Infused Insulin Aspart (Novolog Insulin Sliding Scale) 0 units SUBQ ACHS [facility] PRN Reason: Protocol Stop: 01/31/17 07:29 Last Admin: 12/09/16 07:03 Dose: 7 units Insulin Detemir (Levemir Insulin) 10 units SUBQ HS [facility] PRN Reason: Protocol Stop: 02/03/17 20:59 Last Admin: 12/08/16 21:06 Dose: 10 unit Lactobacillus Rhamnosus (Culturelle) 1 each PO DAILY [facility] Stop: 02/07/17 08:59 Last Admin: 12/09/16 09:12 Dose: 1 each Lorazepam (Ativan) 1 mg IVP Q8HR PRN; Protocol PRN Reason: AGITATION Stop: 02/04/17 19:42 Last Admin: 12/06/16 21:16 Dose: 1 mg Miscellaneous (Vte Chemical Prophylaxis Screen/ Admission) 1 ea MC PRN PRN PRN Reason: PROTOCOL Stop: 01/31/17 13:38 Miscellaneous (Clinical Monitoring) 1 ea MC DAILY PRN PRN Reason: RENAL Stop: 02/04/17 08:05 Miscellaneous (Probiotic Screen) 1 ea PRN PRN PRN Reason: PROTOCOL Stop: 02/06/17 09:59 Pantoprazole Sodium (Protonix) 40 mg IVP DAILY [facility] Stop: 02/01/17 08:59 Last Admin: 12/09/16 09:12 Dose: 40 mg Potassium Chloride (Potassium Chloride Elixir) 20 meq GT DAILY [facility] Stop: 02/05/17 09:14 Last Admin: 12/09/16 09:13 Dose: 20 meq Sodium Bicarbonate (Sodium Bicarbonate) 650 mg GT TID [facility] PRN Reason: Protocol Stop: 02/05/17 20:59 Last Admin: 12/09/16 09:12 Dose: 650 mg General: No acute distress, Other (Intubated.) HEENT: Atraumatic Neck: Supple Cardiovascular: Regular rate Lungs: Clear to auscultation, Other (few rhonchi) Abdomen: Bowel sounds, Soft, Other (PEG in place, Colostomy in place) Extremities: Other (No edema), no Edema Neurological: Sensation intact, Other (Non ambulatory) Skin: no Significant lesion Psych/Mental Status: Mood NL, Other (Awake, alert, restless, intubated) - Procedures Procedures: Procedures Procedure Code Date BYPASS DESCENDING COLON TO CUTANEOUS, OPEN APPROACH [id number] 12/02/16 COLOSTOMY 67716 12/02/16 CHAGO BONE 20 SQ CM/< [id number] 12/02/16 CHAGO MUSC/FASCIA 20 SQ CM/< 55075 10/24/16 CHAGO SUBQ TISSUE 20 SQ CM/< [id number] 12/02/16 EXCISION OF L FOOT SUBCU/FASCIA, OPEN APPROACH [id number] 12/02/16 EXCISION OF LEFT HIP MUSCLE, OPEN APPROACH [id number] 10/24/16 EXCISION OF LEFT PELVIC BONE, OPEN APPROACH [id number] 12/02/16 EXCISION OF R FOOT SUBCU/FASCIA, OPEN APPROACH [id number] 12/02/16 RESPIRATORY VENTILATION, 24-96 CONSECUTIVE HOURS [id number] 12/02/16 Assessment/Plan - Problem List Patient Problems: All Active Problems POOR ORAL INTAKE AND SWALLOWING (Acute) SACRAL AND BILATERAL BUTTOCK SKIN ULCERS (Acute) Nutritional Asmnt/Malnutr-PDOC - Dietary Evaluation Malnutrition Findings (Please click <Entered> for more info): Nutritional Asmnt/Malnutrition Start: 12/02/16 14: 44 Text: Status: Complete Freq: Document 12/02/16 14:44 GSUN (Rec: 12/02/16 15:19 [facility] Nutritional Asmnt/Malnutrition Patient General Information Nutritional Screening Consult Diagnosis AKF, sacral decubitus ulcer stage IV, HTN, DM, dementia, chronic anemia Pertinent Medical Hx/Surgical Hx CAD, CVA, dementia, psychosis, muscle atrophy, AKF, DM, decubitus ulcer stage IV Subjective Information 81 year old female from SNF. RD consult for low Elliot and elevated blood glucose. Pt was awake, unable to provide nutrition hx. Family at bedside, spoke to family and HAI Pimentel regarding nutrition plan of care, PEG placement consent obtained. Family has no other questions at this time. Elevated BUN, spring coiler, K, family reported pt is not on dialysis, "possible HD today" per H&P. Per nursing adm notes , 4-5lb wt loss in 2 weeks. Per family, unaware of UBW, aware of recent wt loss, stated pt stopped eating ~3-4 days ago. Loose skin, moderate to severe muslce fat wasting to chest and clavicles. Current Diet Order/ Nutrition Support NPO Pertinent Medications Dulcolax, D5-0.45ns, Novolog Pertinent Labs 12/01: A1c 9H 12/02: sodium 173H, potassium 5.3H, BUN 169H, creatinie 5.8H , glucose 238H, calcium 10.8H Nutritional Hx/Data Height 1.52 m Height (Calculated Centimeters) 152.4 Current Weight (lbs) 43.545 kg Weight (Calculated Kilograms) 43.5 Weight (Calculated Grams) 77796.9 [place] Body Weight 100 Recent Weight Change Yes Weight Status Approriate GI Symptoms Usual diet at home [facility] Skin Integrity/Comment: Elliot 11. Sacral decubitus ulcer stage IV. Estimated Nutritional Goals Calories/Kcals/Kg IBW 100lb/45.5kg Kcals Calculated 1365-1593kcal (30-35kcal/kg) Protein Calculated 68-73g (1.4-1.6g/kg, ulcer vs renal, ?HD) Fluid: ml Per MD Nutritional Problem 3. Problem Problem Altered nutrition related laboratory values related to Etiology DM aeb Signs/Symptoms: A1c 9H, glucose 238H 2. Problem Problem Increased kcal and prot needs related to Etiology skin integrity, recent weight loss aeb Signs/Symptoms: Sacral decubitus ulcer stage IV, wt loss 4-5lb in 2 weeks per nursing adm notes, moderate to seevre muslce/fat wasting to chest and clavicles 1. Problem Problem Impaired nutrient utilization related to Etiology acute kidney injury aeb Signs/Symptoms: potassium 5.3H, BUN 169H, creatinie 5.8H, calcium 10.8H Intervention/Recommendation Comments 1. Discussed enteral nutrition with family. Family has no further questions at this time . 2. When medically feasible to initiate feeding, recommend Novasource Renal at 30ml/hr x 24hrs, providing 720ml total volume, 1440kcal, 65g protein. Initiate at 10ml/hr for first 24 hrs, monitor for refeeding syndrome and tolerance, increase by 5ml/hr q12hrs until goal. 3. Recommend 1 packet Arginaid daily via tube for wound healing. 4. Monitor weight closely. Hx 4-5lb wt loss in 2 weeks per nursing adm note. Expected Outcomes/Goals Expected Outcomes/Goals 1. Pt to meet at least 75% of estimated nutritinoal eneds on tube feeding with tolerance.
[2016-12-09] MEDS: Venelex 60gm Tube TP SCH (14:31)
== END 2016-12-09 19:25 | disposition short-term general hospital (02) | DRG 622 ==
LOC: ER 18:09 → MSI 12-02 → ICU 12-05 09:58
PROVIDERS: ADMIT General Practice; ATTEND General Practice
PROC: 5A1945Z Respiratory Ventilation, 24-96 Consecutive Hours (ICD-10-PCS; 2016-12-02)
PROC: 0DB68ZX Excision of Stomach, Via Natural or Artificial Opening Endoscopic, Diagnostic (ICD-10-PCS; 2016-12-03)
PROC: 0DH68UZ Insertion of Feeding Device into Stomach, Via Natural or Artificial Opening Endoscopic (ICD-10-PCS; 2016-12-03)
PROC: 30233N1 Transfusion of Nonautologous Red Blood Cells into Peripheral Vein, Percutaneous Approach (ICD-10-PCS; 2016-12-04)
PROC: 0D1M0Z4 Bypass Descending Colon to Cutaneous, Open Approach (ICD-10-PCS; principal; 2016-12-05)
PROC: 0HBMXZZ Excision of Right Foot Skin, External Approach (ICD-10-PCS; 2016-12-05)
PROC: 0JBM0ZZ Excision of Left Upper Leg Subcutaneous Tissue and Fascia, Open Approach (ICD-10-PCS; 2016-12-05)
PROC: 0HBNXZZ Excision of Left Foot Skin, External Approach (ICD-10-PCS; 2016-12-05)
DX: E11.621 Type 2 diabetes mellitus with foot ulcer (principal); L89.154 Pressure ulcer of sacral region, stage 4; L89.224 Pressure ulcer of left hip, stage 4; J96.90 Respiratory failure, unspecified, unspecified whether with hypoxia or hypercapnia; N17.9 Acute kidney failure, unspecified; G93.41 Metabolic encephalopathy; E44.0 Moderate protein-calorie malnutrition; J18.1 Lobar pneumonia, unspecified organism; E11.21 Type 2 diabetes mellitus with diabetic nephropathy; E87.0 Hyperosmolality and hypernatremia; E87.2 Acidosis; I12.0 Hypertensive chronic kidney disease with stage 5 chronic kidney disease or end stage renal disease; N18.5 Chronic kidney disease, stage 5; E87.5 Hyperkalemia; L89.512 Pressure ulcer of right ankle, stage 2; L89.622 Pressure ulcer of left heel, stage 2; E86.0 Dehydration; I25.10 Atherosclerotic heart disease of native coronary artery without angina pectoris; F29 Unspecified psychosis not due to a substance or known physiological condition; R13.10 Dysphagia, unspecified; K29.70 Gastritis, unspecified, without bleeding; R62.7 Adult failure to thrive; E78.5 Hyperlipidemia, unspecified; G30.9 Alzheimer's disease, unspecified; F02.80 Dementia in other diseases classified elsewhere, unspecified severity, without behavioral disturbance, psychotic disturbance, mood disturbance, and anxiety; D63.1 Anemia in chronic kidney disease; Z83.3 Family history of diabetes mellitus; Z79.4 Long term (current) use of insulin; Z86.73 Personal history of transient ischemic attack (TIA), and cerebral infarction without residual deficits; Z79.82 Long term (current) use of aspirin; Z68.23 Body mass index [BMI] 23.0-23.9, adult; Z74.01 Bed confinement status
CPT/HCPCS: 36415-UA; 36600-90; 71010-TC; 76770-TC; 80048-TC; 80053-TC; 81001-TC; 81015-TC; 82570-TC; 82803-TC; 82947-TC; 82948-90; 83036-90; 83605; 83735-TC; 83935-90; 84300-TC; 84443-TC; 84550-TC; 85007-TC; 85014-TC; 85018-TC; 85025-TC; 85027-TC; 85610-TC; 85730-TC; 86850-TC; 86900-TC; 86901-TC; 86922-TC; 87070-90; 87086-90; 88304-TC; 88305-90; 88312-90; 90799; 93005; 94002; 94003; 94640; 96372; 99201; C9113; J0690; J0885; J1170; J1815; J2060; J2250; J2543; J2704; J3480; J7030; J7040; J7042; J7070; J7799; P9016; V2790; X6024; X6158; X7704; Z7506; Z7610